=== PATIENT | male | born 1940 | race Caucasian/White ===

== ENCOUNTER 2016-10-05 19:18 | Inpatient (IN) | payer OTHER ==
[~2016-10-05] VITALS: Ht 165.1 cm; Wt 68.2 kg
[2016-10-05] MEDS ORDERED: ACETAMINOPHEN 325 MG TAB PO STA (19:39)
[2016-10-05] MEDS ORDERED: CEFEPIME 2GM/50 ML (PMX) 50 ML IVPB STA (19:39)
[2016-10-05] MEDS ORDERED: SOD CHLORIDE 0.9% 500 ML IV STA (19:47)
[2016-10-05 19:55] VITALS: TEMP 99.3
[2016-10-05] MEDS ORDERED: VANCOMYCIN 1 GM (PMX) 250 ML IVPB ONE (20:00)
[2016-10-05 20:18] LABS: ADD SCAN DIFF NO
--- NOTE | 2016-10-05 20:21 | RADRPT ---
PROCEDURE: XR Chest. CLINICAL INDICATION: Sepsis TECHNIQUE: Chest AP portable. COMPARISON: No comparison available FINDINGS: Right internal jugular tunnel dialysis catheter. The mediastinal structures are unremarkable. There is calcification of the thoracic aorta (consiste nt with atherosclerosis). There is mild cardiomegaly. There is pulmonary venous hypertension. The re are RLL and LLL patchy consolidations (edema/pneumonia). There are small bilateral pleural effus ions. The osseous structures are unremarkable. IMPRESSION: Mild cardiomegaly. Pulmonary venous hypertension. RLL and LLL patchy consolidations (edema/pneumonia). Small bilateral pleural effusions. RPTAT: HGDB .Patrick Downey MD, MD Date Time Electronically viewed and signed by .Patrick Downey MD, on 10/05/2016 20:20 .B/
[2016-10-05 20:25] LABS: BASOPHIL # 0.1 10^3/ul (0.0-0.1); BASOPHILS % 0.5 % (0.0-2.0); EOSINOPHILS % 0.3 % (0.0-7.0); HEMATOCRIT 29.7 % (42.0-52.0); HEMOGLOBIN 9.1 g/dl (14.0-18.0); LYMPHOCYTES # 0.7 10^3/ul (0.8-2.9); LYMPHOCYTES % 7.1 % (15.0-51.0); MEAN CORPUSCULAR HEMOGLOBIN 26.8 pg (29.0-33.0); MEAN CORPUSCULAR HGB CONC 30.6 g/dl (32.0-37.0); MEAN CORPUSCULAR VOLUME 87.4 fl (82.0-101.0); MEAN PLATELET VOLUME 10.6 fl (7.4-10.4); MONOCYTE # 0.7 10^3/ul (0.3-0.9); MONOCYTES % 6.7 % (0.0-11.0); NEUTROPHIL # 8.6 10^3/ul (1.6-7.5); NEUTROPHILS % 85.1 % (39.0-77.0); PLATELET COUNT 352 10^3/UL (140-415); RED CELL DISTRIBUTION WIDTH 15.3 % (11.5-14.5); WHITE BLOOD COUNT 10.2 10^3/ul (4.8-10.8)
[2016-10-05 20:30] LABS: INR 1.04; PROTIME 13.6 Sec (12.2-14.2); PT RATIO 1.1
[2016-10-05 20:31] LABS: PARTIAL THROMBOPLASTIN TIME 28.5 Sec (25.0-35.0)
[2016-10-05 20:37] LABS: ALBUMIN 3.7 g/dl (3.3-4.9)
[2016-10-05 20:38] LABS: POTASSIUM 4.2 mmol/L (3.5-5.1)
[2016-10-05 20:40] LABS: ALBUMIN/GLOBULIN RATIO 1.02; CREATININE 4.8 mg/dl (0.61-1.24); TOTAL PROTEIN 7.3 g/dl (6.1-8.1)
[2016-10-05 20:56] LABS: TROPONIN-I 0.419 ng/ml (0.00-0.12)
[2016-10-05] MEDS ORDERED: DILTIAZEM 25 MG INJ IV ONE (21:00)
[2016-10-05] MEDS ORDERED: ASPIRIN 81 MG TAB PO ONE (21:00)
[2016-10-05] MEDS ORDERED: MAGNESIUM HYDROXIDE 30ML CUP PO PRN (21:30)
[2016-10-05] MEDS ORDERED: ONDANSETRON 4 MG INJ IV PRN ×2 (21:30)
[2016-10-05] MEDS ORDERED: ACETAMINOPHEN 325 MG TAB PO PRN (21:30)
[2016-10-05] MEDS ORDERED: DOCUSATE SODIUM 100 MG CAP PO PRN (21:30)
[2016-10-05] MEDS ORDERED: NACL 0.9% 3 ML SYG IV SCH (21:30)
[2016-10-05] MEDS ORDERED: ALBUTEROL/IPRATROPIUM (NEB) 3 ML AMP HHN PRN (21:30)
[2016-10-05] MEDS ORDERED: NITROGLYCERIN (SL) 0.4 MG TAB SL PRN (21:30)
[2016-10-05] MEDS ORDERED: NA PHOSPHATE/BIPHOS 133 ML ENEMA PR PRN (21:30)
[2016-10-05] MEDS ORDERED: HYDROCODONE/APAP (5/325) TAB PO PRN (21:30)
[2016-10-05] MEDS ORDERED: morphine 2 MG INJ IV PRN (21:30)
--- NOTE | 2016-10-05 21:46 | ERA ---
ER Documentation Chief Complaint Date/Time DATE: 10/05/16 TIME: 21:39 Chief Complaint SOB after dialysis, hx angioplasty need bypass, on 4L nc at home HPI Patient is a 76-year-old male with coronary disease, diabetes, atrial fibrillation who presents with fever and high blood pressure. The patient said that he had shortness of breath starting 1 week ago and is gotten worse. He had fever after dialysis. He did not take any fluid off at dialysis. His symptoms have been getting worse. He said cough and phlegm. Upon review of old medical records this is the patient's first visit to the emergency department. ROS All systems reviewed and are negative except as per history of present illness. Allergies Allergies: Coded Allergies: No Known Allergy (Unverified , 10/05/16) PMhx/Soc Positive for coronary disease, diabetes, and atrial fibrillation FmHx Family History: diabetes Physical Exam Vitals Vital Signs Date Time Temp Pulse Resp B/P Pulse Ox O2 Delivery O2 Flow Rate FiO2 10/05/16 21:20 80 18 155/81 Nasal Cannula 2.0 10/05/16 20:36 105 20 176/84 97 2.0 10/05/16 20:17 Nasal Cannula 2 10/05/16 20:15 Nasal Cannula 2.0 10/05/16 19:55 99.3 140 24 159/96 100 Nasal Cannula 2.0 10/05/16 19:33 100.6 105 32 154/87 98 Physical Exam Const: Mild distress Head: Atraumatic Eyes: Normal Conjunctiva ENT: Normal External Ears, Nose and Mouth. Neck: Full range of motion..~ No meningismus. Resp: Decreased breath sounds bilaterally Cardio: Irregular rate with tachycardia Abd: Soft, non tender, non distended. Normal bowel sounds Skin: No petechiae or rashes Back: No midline or flank tenderness Ext: No cyanosis, or edema Neur: Awake and alert Psych: Normal Mood and Affect Result Diagram: 10/05/16200410/05/162004 Results 24 hrs Laboratory Tests Test 10/05/16 20:05 Activated Partial Thromboplast Time 28.5Sec Alanine Aminotransferase (ALT/SGPT) 22IU/L Albumin 3.7g/dl Albumin/Globulin Ratio 1.02 Alkaline Phosphatase 92IU/L Anion Gap 19 Aspartate Amino Transf (AST/SGOT) 21IU/L Basophils # 0.110^3/ul Basophils % 0.5% Blood Urea Nitrogen 23mg/dl Calcium Level 9.0mg/dl Carbon Dioxide Level 35mmol/L Chloride Level 90mmol/L Creatinine 4.80mg/dl Direct Bilirubin 0.00mg/dl Eosinophils # 0.010^3/ul Eosinophils % 0.3% Globulin 3.60g/dl Glucose Level 171mg/dl Hematocrit 29.7% Hemoglobin 9.1g/dl INR International Normalized Ratio 1.04 Indirect Bilirubin 0.0mg/dl Lactic Acid Level 1.7mmol/L Lymphocytes # 0.710^3/ul Lymphocytes % 7.1% Mean Corpuscular Hemoglobin 26.8pg Mean Corpuscular Hemoglobin Concent 30.6g/dl Mean Corpuscular Volume 87.4fl Mean Platelet Volume 10.6fl Monocytes # 0.710^3/ul Monocytes % 6.7% Neutrophils # 8.610^3/ul Neutrophils % 85.1% Nucleated Red Blood Cells # 0.010^3/ul Nucleated Red Blood Cells % 0.0/100WBC Platelet Count 93888^3/UL Potassium Level 4.2mmol/L Prothrombin Time 13.6Sec Prothrombin Time Ratio 1.1 Red Blood Count 3.4010^6/ul Red Cell Distribution Width 15.3% Sodium Level 140mmol/L Total Bilirubin 0.0mg/dl Total Protein 7.3g/dl Troponin I 0.419ng/ml White Blood Count 10.210^3/ul Current Medications Medications (Trade) Dose Ordered Sig/Tariq Route PRN Reason Start Time Stop Time Status Last Admin Dose Admin Acetaminophen 650 mg 650 mg ONCE STAT PO 10/05/16 19:39 10/05/16 19:42 DC 10/05/16 20:03 Cefepime HCl 50 ml @ 100 mls/hr ONCE STAT IVPB 10/05/16 19:39 10/05/16 20:08 DC 10/05/16 20:03 Vancomycin HCl 250 ml @ 125 mls/hr ONCE ONCE IVPB 10/05/16 20:00 10/05/16 21:59 10/05/16 20:25 Sodium Chloride (NS) 500 ml @ 500 mls/hr Q1H STAT IV 10/05/16 19:47 10/05/16 20:46 DC 10/05/16 20:04 Diltiazem HCl (Cardizem Iv) 10 mg ONCE ONCE IV 10/05/16 21:00 10/05/16 21:01 DC 10/05/16 21:01 Aspirin (Aspirin) 162 mg ONCE ONCE PO 10/05/16 21:00 10/05/16 21:01 DC 10/05/16 21:05 Ondansetron HCl (Zofran Inj) 4 mg ER BRIDGE PRN IV NAUSEA AND/OR VOMITING 10/05/16 21:30 10/06/16 21:29 Acetaminophen (Tylenol Tab) 650 mg ER BRIDGE PRN PO MILD PAIN/FEVER 10/05/16 21:30 10/06/16 21:29 IV Flush (NS 3 ml) 3 ml PER PROTOCOL IV 10/05/16 21:30 UNV Ondansetron HCl (Zofran Inj) 4 mg Q6H PRN IV NAUSEA AND/OR VOMITING 10/05/16 21:30 UNV Acetaminophen (Tylenol Tab) 650 mg Q6H PRN PO PAIN LEVEL 1-3 OR FEVER 10/05/16 21:30 UNV Acetaminophen/ Hydrocodone Bitart (Elizabeth (5/325)) 1 tab Q6H PRN PO MODERATE PAIN LEVEL 4-6 10/05/16 21:30 UNV Morphine Sulfate (morphine) 2 mg Q4H PRN IV SEVERE PAIN LEVEL 7-10 10/05/16 21:30 UNV Docusate Sodium (Colace) 100 mg Q12H PRN PO CONSTIPATION 10/05/16 21:30 UNV Magnesium Hydroxide (Milk Of Mag) 30 ml DAILY PRN PO CONSTIPATION 10/05/16 21:30 UNV Sodium Biphosphate/ Sodium Phosphate (Fleet Enema) 133 ml DAILY PRN ME CONSTIPATION 10/05/16 21:30 UNV Famotidine 20 mg 20 mg Q12 PO 10/06/16 09:00 UNV Sodium Chloride (1/2 NS) 1,000 ml @ 75 mls/hr [id number] IV 10/05/16 21:18 UNV Lorazepam (Ativan) 0.5 mg Q6H PRN IV ANXIETY 10/05/16 21:30 UNV Albuterol/ Ipratropium 3 ml 3 ml Q4H RESP THERAPY PRN HHN SHORTNESS OF BREATH 10/05/16 21:30 UNV Levofloxacin/ Dextrose (Levaquin 750 Mg/ D5W 150 ml (Pmx)) 150 ml @ 100 mls/hr DAILY IVPB 10/06/16 09:00 UNV Hydralazine HCl (Apresoline) 10 mg Q6H PRN IV ELEVATED BLOOD PRESSURE 10/05/16 21:30 UNV Clonidine (Catapres) 0.1 mg Q6H PRN PO ELEVATED BLOOD PRESSURE 10/05/16 21:30 UNV Nitroglycerin (Nitroglycerin (Sl Tab) 0.4 Mg) 1 tab Q5M PRN SL ANGINA 10/05/16 21:30 UNV Aspirin 325 mg 325 mg DAILY PO 10/06/16 09:00 UNV Diltiazem HCl (Cardizem-D5W 125 Mg/125 ml Drip) 125 ml @ 5 mls/hr TITRATE IV 10/05/16 21:30 UNV Procedures/MDM Chest X-ray 1V Interpreted by me: Soft Tissue: No acute abnormalities Bones: No acute abnormalities Mediastinum/Cardiac Silhouette/Lungs: Bilateral lower lobe pneumonia with cardiomegaly and dialysis catheter in place EKG read by me: Rate/Rhythm: Rapid atrial fibrillation Intervals: Normal Impression: Rapid atrial for ablation without evidence of ischemia Admit MDM: Patient's infectious symptoms have not stabilized and the patient is at risk of rapid decompensation. The patient will be admitted for careful hydration, antibiotic therapy, and infectious source control. Severe Sepsis criteria: Infectious source: Pneumonia End organ damage indicated by: Positive troponin Sepsis Management: Time of recognition of sepsis: 20:20 Within 3 hours of recognition: Blood cultures x 2 before broad-spectrum antibiotics: Yes 30 ml/kg NS bolus Completed Initial lactate 1.7 Repeat lactate pending Time of recognition of septic shock: No septic shock Septic Shock Assessment: Any lactic acid > 4.0 No Persistent hypotension (SBP < 90 or 40 mmHg drop, MAP < 65) despite 30 mL/kg IV fluid bolus No Volume Re-assessment for Septic Shock (post 30 ml/kg bolus): No septic shock at this time Persistent Hypotension Treatment: Comfort care No Central line Not Required Vasopressor started Not required I considered further perfusion assessment with CVP measurement, SCVO2, bedside ultrasound volume assessment, passive leg raise, trial of further fluid bolus. And proceeded with broad-spectrum antibiotics, diltiazem IV, aspirin by mouth, and admission. Please note that I did hold off on the fluid bolus as the patient has dialysis and I do not want to fluid overload him. Accepting Care Team Current data and ongoing care discussed. Admitting Physician: Dr. Alvarado from the panel team for admission [facility] Manager(s): None Outstanding Data: Culture results and repeat lactic acid Critical Care: Critical care time 35 minutes excluding all billable procedures Emergent fluid management while maintaining close respiratory support. Provision of immediate and broad-spectrum antibiotic therapy. Simultaneous assessment for possible sources in order to direct targeted therapy. Consideration for invasive and chemical support to prevent cardiopulmonary collapse. Departure Diagnosis: Primary Impression: Shortness of breath Additional Impressions: NSTEMI (non-ST elevated myocardial infarction) Rapid atrial fibrillation Pneumonia Qualified Code: J18.9 - Pneumonia of both lower lobes due to infectious organism Severe sepsis Condition: Serious PAVAN MARVIN MD Oct 05, 2016 21:46
[2016-10-05] MEDS ORDERED: DILTIAZEM-D5W 125MG/125ML DRIP 125 ML IV SCH (22:00)
[2016-10-05] MEDS ORDERED: SOD CHLORIDE 0.45% 1,000 ML IV SCH (22:30)
[2016-10-05 23:21] LABS: CK-MB 0.8 ng/ml (0.0-2.4); TROPONIN-I 0.42 ng/ml (0.00-0.12)
[2016-10-06] VITALS (18 sets, daily range): BP systolic 134–185; BP diastolic 68–104; PULSE 83–110; RESP 18–20; Ht 165.1 cm; Wt 68.2 kg
[2016-10-06] MEDS ORDERED: MELA1TAB25 PO (00:29)
[2016-10-06] MEDS ORDERED: CYAN100T PO (00:29)
[2016-10-06] MEDS ORDERED: ZINC220C5 PO (00:29)
[2016-10-06] MEDS ORDERED: FERR134T PO (00:29)
[2016-10-06] MEDS ORDERED: FOL8 PO (00:29)
[2016-10-06] MEDS ORDERED: UBID1CAP25 PO (00:29)
[2016-10-06] MEDS ORDERED: KEN1O TOP (00:29)
[2016-10-06] MEDS ORDERED: MAGN400C PO (00:29)
[2016-10-06] MEDS ORDERED: GLUCOSE GEL 15 GRAM TUBE BUCCAL PRN (01:00)
[2016-10-06] MEDS ORDERED: GLUCAGON 1 MG INJ IM PRN (01:00)
[2016-10-06] MEDS ORDERED: GLUCOSE GEL 15 GRAM TUBE PO PRN ×2 (01:00)
[2016-10-06] MEDS ORDERED: DEXTROSE 50% 50 ML SYRINGE IV PRN ×2 (01:00)
[2016-10-06] MEDS: ZOLPIDEM 5 MG TAB PO PRN (01:08)
[2016-10-06] MEDS ORDERED: ENOXAPARIN 80 MG/0.8 ML SYG SC ONE (03:00)
--- NOTE | 2016-10-06 03:22 | HP ---
DATE OF ADMISSION: 10/05/2016 The patient was seen and examined by me on 10/06/2015 at 9:15 p.m. CHIEF COMPLAINT: Shortness of breath. HISTORY OF PRESENT ILLNESS: A 76-year-old male with past medical history of coronary artery disease , type 2 diabetes, looks like atrial fibrillation, and end-stage renal disease on hemodialysis who p resents with shortness of breath symptoms that began about a week ago and have been getting progress ively worse. The patient also was complaining of fever after getting dialysis session. He has also had some cough and phlegm along with the shortness of breath symptoms as well. When he came into t ER today, he was found with elevated heart rate, atrial fibrillation with RVR, and his chest x-ra y did show signs of pneumonia as well. His troponin was elevated as well. PAST MEDICAL HISTORY: As above. ALLERGIES: NO KNOWN DRUG ALLERGIES. MEDICATIONS: 1. Ferrous sulfate 134 mg. 2. Magnesium oxide 266 mg daily. 3. Zinc sulfate 10 mg daily. 4. Kenalog applied topically b.i.d. 5. Vitamin B12 1000 mcg daily. 6. Folic acid 0.8 mg daily. 7. Melatonin 1 tab p.o. at bedtime. 8. CoQ10 100 mg 2 tabs daily. FAMILY HISTORY: Positive for diabetes. PAST SURGICAL HISTORY: Unknown. SOCIAL HISTORY: Unknown. PHYSICAL EXAMINATION: VITAL SIGNS: T-max 100.6, pulse 140 to 80, respirations 18 to 32, blood pressure 155 to 176 systoli c over 81 to 84 diastolic, saturating at 97% on 2 liters nasal cannula. GENERAL: The patient lying in bed, no acute distress. HEENT: Pupils equal, round, react to light. Extraocular muscles intact. NECK: Supple, no thyromegaly. LUNGS: Slightly decreased breath sounds bilaterally. CARDIOVASCULAR: Irregularly irregular heart rate with tachycardia. ABDOMEN: Soft, nontender, nondistended. Normal bowel sounds. No rebound or guarding. MUSCULOSKELETAL: No lower extremity edema bilaterally. NEUROLOGIC: No focal deficits. LABORATORIES: CBC is normal. Basic metabolic panel showed sodium 140, potassium 4.3, chloride 90, CO2 35, BUN 23, creatinine 4.8, glucose 171. LFTs are normal. First troponin is 0.419. Coags are normal. Chest x-ray shows mild cardiomegaly, pulmonary venous hypertension, right lower lobe and le ft lower lobe patchy consolidations, edema versus pneumonia, small bilateral pleural effusions. ASSESSMENT AND PLAN: A 76-year-old male coming in with shortness of breath with signs of atrial fib rillation with RVR, pneumonia, and non-ST elevation myocardial infarction. 1. Shortness of breath secondary to most likely a combination of pneumonia and atrial fibrillation with RVR. For the pneumonia, we will put him on broad-spectrum antibiotics. We will check a TSH, A 1c, lipid panel, and put him on low-dose IV fluids. 2. Atrial fibrillation with rapid ventricular response. The patient did receive Cardizem drip in t he ER. Heart rate is presently stable now, rate controlled. 3. Elevated troponin and signs of non-ST elevation MN. We will continue to trend his troponins. W e will give him a dose of Lovenox for now and put him on high dose aspirin, morphine, oxygen, and ni trates. We will get a cardiology consult as well. Check 2D echocardiogram as well. 4. History of type 2 diabetes. We will check an A1c, put him on sliding scale insulin for now. 5. Questionable history of anemia. We will put him back on his iron supplementation. His hemoglob in is 9.1 today. No signs of bleeding. 6. History of coronary artery disease. Again, see #3. 7. Hypertensive urgency. Again, the patient did receive diltiazem. We will put him on hydralazine and clonidine p.r.n. for systolic greater than 160. Continue to monitor for now. 8. Gastrointestinal prophylaxis. We will put him on H2 julia. 9. Deep venous thrombosis prophylaxis. Again, he got a dose of Lovenox. 10. End-stage renal disease on hemodialysis. We will get a renal consult as well and PT consult. Dictated By: LESLI NICOLE Conf#: [id number] DID#: [id number]
[2016-10-06] MEDS: LORAZEPAM 2 MG INJ IV PRN ×2 (04:42→15:12)
[2016-10-06] MEDS: hydrALAzine 20 MG INJ IV PRN (04:42)
[2016-10-06] MEDS ORDERED: LEVOFLOXACIN 750MG/D5W (PMX) 150 ML IVPB ONE (06:00)
[2016-10-06 06:35] LABS: CHOL/HDL RATIO 3.6 RATIO
[2016-10-06 07:05] LABS: THYROID STIMULATING HORMONE 9.07 MIU/L (0.465-4.680)
[2016-10-06 07:56] LABS: ADD SCAN DIFF NO
[2016-10-06 07:59] LABS: BASOPHIL # 0.1 10^3/ul (0.0-0.1); EOSINOPHILS # 0.1 10^3/ul (0.0-0.5); EOSINOPHILS % 1.3 % (0.0-7.0); HEMOGLOBIN 8.9 g/dl (14.0-18.0); LYMPHOCYTES # 1.7 10^3/ul (0.8-2.9); LYMPHOCYTES % 21.3 % (15.0-51.0); MEAN CORPUSCULAR HEMOGLOBIN 27.3 pg (29.0-33.0); MEAN CORPUSCULAR HGB CONC 30.7 g/dl (32.0-37.0); MONOCYTE # 0.6 10^3/ul (0.3-0.9); MONOCYTES % 7.2 % (0.0-11.0); NEUTROPHIL # 5.4 10^3/ul (1.6-7.5); NEUTROPHILS % 68.9 % (39.0-77.0); PLATELET COUNT 315 10^3/UL (140-415); RED BLOOD COUNT 3.26 10^6/ul (4.70-6.10); RED CELL DISTRIBUTION WIDTH 15.6 % (11.5-14.5); WHITE BLOOD COUNT 7.9 10^3/ul (4.8-10.8)
[2016-10-06 08:08] LABS: POTASSIUM 4.1 mmol/L (3.5-5.1)
[2016-10-06 08:10] LABS: CREATININE 5.43 mg/dl (0.61-1.24)
[2016-10-06 08:12] LABS: CALCIUM 8.8 mg/dl (8.4-10.2); PHOSPHORUS 3.6 mg/dl (2.5-4.9)
[2016-10-06 08:21] LABS: CK-MB 1.07 ng/ml (0.0-2.4)
[2016-10-06 08:27] LABS: TROPONIN-I 0.453 ng/ml (0.00-0.12)
[2016-10-06] MEDS: TRIAMCINOLONE ACET 0.1% 15 GM OINT TOP SCH ×2 (08:33→21:18)
[2016-10-06] MEDS ORDERED: ZINC SULFATE 220 MG CAP PO SCH (09:00)
[2016-10-06] MEDS ORDERED: UBIDECARENONE PO SCH (09:00)
[2016-10-06] MEDS ORDERED: [UNRECOGNIZED DRUG - OTHER] PO SCH (09:00)
[2016-10-06] MEDS: CYANOCOBALAMIN 500 MCG TAB PO SCH ×2 (09:00→09:56)
[2016-10-06] MEDS: FOLIC ACID 0.4 MG TAB PO SCH ×2 (09:00→09:56)
[2016-10-06] MEDS ORDERED: VIT E ACETATE PO SCH (09:00)
[2016-10-06] MEDS: FAMOTIDINE 20 MG TAB PO SCH ×2 (09:00→09:56)
[2016-10-06] MEDS: INSULIN ASPART [NOVOLOG] 3 ML PEN SC SCH ×4 (09:19→21:00)
--- NOTE | 2016-10-06 09:45 | CONS ---
DATE OF ADMISSION: 10/05/2016 DATE OF CONSULTATION: 10/06/2016 TYPE OF CONSULTATION: Nephrology. REASON FOR CONSULTATION: End-stage renal disease. REQUESTING PHYSICIAN: Dr. Alvarado HISTORY OF PRESENT ILLNESS: This is a 76-year-old male with a past medical history of end-stage chelsy al disease on dialysis Monday, Monday, Monday; history of diabetes, history of coronary artery di abnere who presents to [facility] with progressive shortness of breath. The patien t states that he was recently at his hemodialysis center yesterday and was complaining about shortne ss of breath and fever following dialysis. The patient said that he has also had some ongoing cough with phlegm. The patient states yesterday after hemodialysis he became more progressively short of breath and as a result he was taken to the emergency room. Upon arrival, patient was noted to be i n atrial fibrillation with rapid rate. In the emergency room, the patient had a chest x-ray which sh owed evidence of bilateral patchy consolidations and bilateral pleural effusions and pulmonary venou s hypertension. Patient also on arrival was noted to be febrile with a temperature of 100.6. In the emergency room, the patient was given IV antibiotics and admitted to telemetry for further evaluati on. The patient was also given diltiazem for his atrial fibrillation. In terms of the patient's renal history, he has been on hemodialysis 3 times weekly. The patient st ated that his last hemodialysis no fluid was taken off. He denies any dysuria, any hematochezia or hemoptysis. PAST MEDICAL HISTORY: As stated above, history of end-stage renal disease, history of hypertension, history of anemia, history of coronary artery disease, history of diabetes. PAST SURGICAL HISTORY: Status post AV fistula. FAMILY HISTORY: Noncontributory. MEDICATIONS: The patient's medications have been reviewed. ALLERGIES: NO KNOWN DRUG ALLERGIES. REVIEW OF SYSTEMS: A 14-point review of systems was conducted. Pertinent positives in HPI, otherwi se negative. PHYSICAL EXAMINATION: VITAL SIGNS: Blood pressure is 134/87, respiratory rate 20, pulse 101, temperature 98.0. HEENT: Head is normocephalic. NECK: Supple. HEART: Regular rate. LUNGS: Show diminished breath sounds at the base. ABDOMEN: Soft, nontender to palpation. No rebound or guarding. EXTREMITIES: Negative for clubbing, cyanosis, no edema. DERMATOLOGIC: No rashes. MUSCULOSKELETAL: No joint effusions. NEUROLOGIC: No focal deficits. The patient's medications have been reviewed. LABORATORY DATA: Shows sodium 141, potassium 4.1, chloride 93, BUN 30, creatinine 5.43. White coun t 7.9, hemoglobin 8.9, hematocrit 29.1, platelet count is 315. Chest x-ray as stated above. ASSESSMENT AND PLAN: This is a 76-year-old male who presents with: 1. End-stage renal disease. The patient is on dialysis Monday, Monday, Monday. The patient's l ast hemodialysis was yesterday, tolerated well. Plan is for hemodialysis today for volume removal. The patient's chest x-ray shows evidence of possible edema. The patient is currently short of . Will do a short run of hemodialysis with goal ultrafiltration of 1 to 2 liters. 2. Anemia of chronic kidney disease. Hemoglobin levels currently stable. Continue to monitor. Wi ll give Epogen following dialysis. 3. Mineral bone disorder. Monitor calcium and phosphorus levels. Will defer phosphate binders. 4. Hypertension. We will continue patient's current blood pressure regimen. Will monitor closely. 5. Sepsis secondary to bilateral pneumonia. Continue current antibiotic regimen. Follow up jennifer es. Consider infectious disease evaluation. 6. Atrial fibrillation, currently rate controlled. Continue current medical management. 7. Elevated troponin, possible non-ST elevation myocardial infarction type 1 versus type 2. The pa tient is status post Lovenox. Continue current medical management and follow up with Cardiology. 8. Diabetes. Continue Accu-Cheks, insulin sliding scale. 9. History of coronary artery disease. Continue current medical management. 10. Acute hypoxemic respiratory failure. Etiology secondary to pneumonia, volume overload, congest brian heart failure. Continue current treatment plan as stated above. Continue supplemental oxygen. Continue antibiotics ultrafiltration dialysis. Thank you, Dr. Alvarado, for this interesting consultation. It will be a pleasure to follow patient evelina h victoriano throughout the hospital course. Dictated By: NOEMI LOUIE DO NR/NTS Conf#: [id number] DID#: [id number]
[2016-10-06] MEDS: ASPIRIN (EC) 325 MG TAB PO SCH (09:50)
[2016-10-06] MEDS: CLOPIDOGREL 75 MG TAB PO SCH (12:21)
[2016-10-06] MEDS ORDERED: ZOLP10TA5 PO (12:44)
[2016-10-06] MEDS ORDERED: FURO40SO PO (12:44)
[2016-10-06] MEDS ORDERED: ALBU18HF INHALATION (12:44)
[2016-10-06] MEDS ORDERED: CLOP75TA28 PO (12:44)
[2016-10-06] MEDS ORDERED: ATOR40TA68 PO (12:44)
[2016-10-06] MEDS ORDERED: BENA40TA41 PO (12:44)
[2016-10-06] MEDS ORDERED: OMEP20CA16 PO (12:44)
[2016-10-06] MEDS ORDERED: ASPI-716 PO (12:44)
[2016-10-06] MEDS ORDERED: GLIP-95 PO (12:44)
[2016-10-06] MEDS ORDERED: PRO20 PO (12:44)
--- NOTE | 2016-10-06 14:31 | CONS ---
DATE OF ADMISSION: 10/05/2016 DATE OF CONSULTATION: 10/06/2016 REASON FOR CONSULTATION: Atrial fibrillation with rapid ventricular response, ____. REQUESTING PHYSICIAN: Dr. Eldridge from the hospitalist service. HISTORY OF PRESENT ILLNESS: Mr. Sandoval is a 76-year-old male with history of coronary artery dis ease, status post recent left heart catheterization at [facility], unclear if the patient re ceived a stent at this time. Diabetes mellitus, cardiomyopathy, decreased left ventricular ejection fraction, last approximately 35 to 40% by echo at [facility], end-stage renal disease on hem odialysis, who presents with complaints of shortness of breath and progressive weakness. Upon arriv al in the emergency department temperature 100.6, blood pressure 154/87, pulse 105, respiratory rate 32, saturating 98% on 2 liters. Patient's labs revealed a sodium 140, potassium 4.2, creatinine 4. 8, BUN 23. Troponin positive 0.419, free T4 of 1.37. White blood cell count 10.2, hemoglobin 9.1, platelet count 352. INR 1.0. The patient underwent a chest x-ray revealing mild cardiomegaly, pulm onary venous hypertension, right lower lobe and left lower lobe patchy consolidations, small bilater al pleural effusions. The patient's electrocardiogram revealed atrial fibrillation with rapid ventr icular response, rate 130, normal axis, left ventricular hypertrophy by voltage criteria with infer ior and lateral ST depressions. Patient subsequently admitted to the floor and since admit to the [facility], has had troponins trended going from 0.49 to 0.453 in the setting of renal failure. Patient d enies chest pain, denies shortness breath at this time. PAST MEDICAL HISTORY: As above in HPI. MEDICATIONS CURRENTLY IN HOSPITAL: 1. Levofloxacin. 2. Ferrous sulfate. 3. Magnesium oxide 400 mg daily. 4. Plavix 75 mg daily. 5. Pepcid 20 mg daily. 6. Aspirin 325 mg daily. 7. Vitamin B12. 8. Folic acid. 9. Triamcinolone cream. 10. Insulin sliding scale. 11. Ambien p.r.n. 12. Zocor p.r.n. 13. Morphine p.r.n. 14. Colace p.r.n. 15. Milk of magnesia p.r.n. 16. Ativan p.r.n. 17. Clonidine p.r.n. ALLERGIES: NO KNOWN DRUG ALLERGIES. SOCIAL HISTORY: No tobacco, ETOH or illicit drug use. FAMILY HISTORY: Negative for sudden cardiac or early CAD. REVIEW OF SYSTEMS: As above in HPI. CONSTITUTIONAL: No fevers, chills. PULMONARY: Positive shortness of breath. CARDIOVASCULAR: Congestive heart failure. GASTROINTESTINAL: No vomiting. GENITOURINARY: No hematuria, but renal failure. MUSCULOSKELETAL: No documented psychiatric history. NEUROLOGIC: No documented history of CVA. PHYSICAL EXAMINATION VITAL SIGNS: Temperature of 98.3, blood pressure elevated at 185/87, pulse 93, respiratory rate 20, saturating 100%. GENERAL: The patient is sleeping, but easily arousable. NECK: JVP approximately 9 cm water. CHEST: Bibasilar crackles. HEART: Irregularly irregular rhythm, I/ systolic murmur, laterally displaced PMI. ABDOMEN: Positive bowel sounds, soft. EXTREMITIES: No edema, 1+ pulses bilaterally, posterior tibial. LABORATORY DATA: Most recently from today, sodium 141, potassium 4.1, creatinine 5.43, BUN of 30, h emoglobin A1c of 6.3. White blood cell count 7.9, hemoglobin 8.9, platelet count 315. IMAGING STUDIES: As above in HPI. No further imaging studies for my review at this time. ELECTROCARDIOGRAM: As above in HPI. No further electrocardiograms for my review at this time. IMPRESSION: 1. Atrial fibrillation with rapid ventricular response. 2. Abnormal electrocardiogram with inferolateral ST depressions. 3. Positive troponin, assess significance. 4. Cardiomyopathy, decreased left ventricula ejection fraction last approximately 35 to 40% by out side hospital paperwork at [facility]. 5. History of PTCA and stent placement at [facility] recently. 6. Renal failure. 7. Hypertension. 8. Shortness of breath. 9. Generalized weakness. 10. Diabetes mellitus. 11. Anemia. RECOMMENDATIONS: 1. At this time, would maintain the patient on telemetry monitoring to follow rhythm and rate contr ol closely. 2. Would continue the patient's aspirin and Plavix for prevention of further cardiovascular events and possibly for stent patency and prevention of thromboembolic events in the setting of atrial fibr illation as well. We will initiate patient on low dose Lovenox, but today the patient has received a full Lovenox dose. 3. Follow the patient's volume status closely. Probable need for gentle diuresis and possible init iation of hemodialysis. 4. Continue the patient's antibiotic therapy and follow up all culture data. 5. Initiate patient on beta julia to improve heart rate and blood pressure control and additional ly, will give the patient low dose hydralazine for afterload reduction in the setting of decreased E F. 6. We will obtain the patient's most recent records from [facility] pertaining to any possib le catheterization and any interventions that were done at that time. Thank you for allowing me to take part in the care of this patient. I will continue to follow very closely with you with further recommendations to be made as the patient progresses through his [facility] clinical course. Dictated By: AIYANA OWENS/CHANTALE Conf#: [id number] DID#: [id number] CC: LESLI BETTENCOURT; JANAE ELDRIDGE MD;*EndCC*
[2016-10-06] MEDS: MAGNESIUM OXIDE 400 MG TAB PO SCH (15:19)
--- NOTE | 2016-10-06 16:02 | PN ---
Date/Time of Note Date/Time of Note DATE: 10/06/16 TIME: 15:53 Assessment/Plan VTE Prophylaxis VTE Prophylaxis Intervention: LMWH Lines/Catheters [facility] PERMAC[facility] Assessment/Plan Chief Complaint/Hosp Course 1. Acute history distress secondary to volume overload from underlying end- stage renal disease Nephrology consultation appreciated, plan is for dialysis with ultrafiltration today Pneumonia is unlikely but the patient did have a low-grade fever on arrival, if patient remains afebrile and continues to have no leukocytosis will discontinue antibiotics in a.m. 2. Atrial fibrillation with rapid ventricular response-stable Continue metoprolol p.o. Cardiology consultation appreciated 3. Non-STEMI Monitor troponins, currently stable, elevation likely secondary to tachyarrhythmia Patient did have recent PCI continue aspirin and Plavix Cardiology consultation appreciated 4. History of type 2 diabetes A1c at 6.3, continue NovoLog sliding scale 5. Anemia secondary end-stage renal disease Monitor 6. History of coronary artery disease Resume home meds 7. Hypertensive urgency-improved Prophylaxis: Lovenox Problems: Subjective 24 Hr Interval Summary Respiratory: shortness of breath Exam/Review of Systems Vital Signs Vitals Vital Signs Date Time Temp Pulse Resp B/P Pulse Ox O2 Delivery O2 Flow Rate FiO2 10/06/16 15:28 98.0 86 20 171/88 98 10/06/16 11:08 Nasal Cannula 2.0 Intake and Output 10/05/16 10/05/16 10/06/16 15:00 23:00 07:00 Intake Total 750 ml 30 ml Balance 750 ml 30 ml Exam Constitutional: alert, oriented Respiratory: clear to auscultation Cardiovascular: regular rate and rhythm Gastrointestinal: soft, No distended Musculoskeletal: nl extremities to inspection Results Result Diagram: 10/06/1625 10/06/16 0525 Results 24 hrs Laboratory Tests Test 10/05/16 20:00 10/05/16 20:05 10/05/16 21:30 10/05/16 23:00 Free Thyroxine 1.37 Activated Partial Thromboplast Time 28.5 Alanine Aminotransferase (ALT/SGPT) 22 Albumin 3.7 Albumin/Globulin Ratio 1.02 Alkaline Phosphatase 92 Anion Gap 19 H Aspartate Amino Transf (AST/SGOT) 21 Basophils # 0.1 Basophils % 0.5 Blood Urea Nitrogen 23 H Calcium Level 9.0 Carbon Dioxide Level 35 H Chloride Level 90 L Creatinine 4.80 H Direct Bilirubin 0.00 Eosinophils # 0.0 Eosinophils % 0.3 Globulin 3.60 H Glucose Level 171 Hematocrit 29.7 L Hemoglobin 9.1 L INR International Normalized Ratio 1.04 Indirect Bilirubin 0.0 Lactic Acid Level 1.7 1.1 Lymphocytes # 0.7 L Lymphocytes % 7.1 L Mean Corpuscular Hemoglobin 26.8 L Mean Corpuscular Hemoglobin Concent 30.6 L Mean Corpuscular Volume 87.4 Mean Platelet Volume 10.6 H Monocytes # 0.7 Monocytes % 6.7 Neutrophils # 8.6 H Neutrophils % 85.1 H Nucleated Red Blood Cells # 0.0 Nucleated Red Blood Cells % 0.0 Platelet Count 352 Potassium Level 4.2 Prothrombin Time 13.6 Prothrombin Time Ratio 1.1 Red Blood Count 3.40 L Red Cell Distribution Width 15.3 H Sodium Level 140 Total Bilirubin 0.0 L Total Protein 7.3 Troponin I 0.419 *H 0.420 *H White Blood Count 10.2 Creatine Kinase 30 Creatine Kinase Index 2.7 Creatinine Kinase MB (Mass) 0.80 Test 10/05/16 23:12 10/06/16 00:20 10/06/16 05:25 10/06/16 07:42 Lactic Acid Level 1.2 Bedside Glucose 129 171 Anion Gap 20 H Basophils # 0.1 Basophils % 1.0 Blood Urea Nitrogen 30 H Calcium Level 8.8 Carbon Dioxide Level 32 H Chloride Level 93 L Cholesterol Level 112 Cholesterol/HDL Ratio 3.6 Creatine Kinase 29 Creatine Kinase Index 3.7 Creatinine 5.43 H Creatinine Kinase MB (Mass) 1.07 Eosinophils # 0.1 Eosinophils % 1.3 Glucose Level 177 HDL Cholesterol 31 Hematocrit 29.0 L Hemoglobin 8.9 L Hemoglobin A1c 6.3 H LDL Cholesterol, Calculated 52 Lymphocytes # 1.7 Lymphocytes % 21.3 Magnesium Level 2.0 Mean Corpuscular Hemoglobin 27.3 L Mean Corpuscular Hemoglobin Concent 30.7 L Mean Corpuscular Volume 89.0 Mean Platelet Volume 11.0 H Monocytes # 0.6 Monocytes % 7.2 Neutrophils # 5.4 Neutrophils % 68.9 Nucleated Red Blood Cells # 0.0 Nucleated Red Blood Cells % 0.0 Phosphorus Level 3.6 Platelet Count 315 Potassium Level 4.1 Red Blood Count 3.26 L Red Cell Distribution Width 15.6 H Sodium Level 141 Thyroid Stimulating Hormone (TSH) 9.260 H Triglycerides Level 143 Troponin I 0.453 *H White Blood Count 7.9 # Test 10/06/16 11:54 Bedside Glucose 144 Medications Medications Current Medications Ondansetron HCl (Zofran Inj) 4 mg Q6H PRN IV NAUSEA AND/OR VOMITING; Start at 21:30 Acetaminophen (Tylenol Tab) 650 mg Q6H PRN PO PAIN LEVEL 1-3 OR FEVER; Start at 21:30 Acetaminophen/ Hydrocodone Bitart ([place] (5/325)) 1 tab Q6H PRN PO MODERATE PAIN LEVEL 4-6; Start 10/05/16 at 21:30 Morphine Sulfate (morphine) 2 mg Q4H PRN IV SEVERE PAIN LEVEL 7-10; Start 10/05 at 21:30 Docusate Sodium (Colace) 100 mg Q12H PRN PO CONSTIPATION; Start 10/05/16 at 21: 30 Magnesium Hydroxide (Milk Of Mag) 30 ml DAILY PRN PO CONSTIPATION; Start at 21:30 Sodium Biphosphate/ Sodium Phosphate (Fleet Enema) 133 ml DAILY PRN [place] CONSTIPATION; Start 10/05/16 at 21:30 Famotidine (Pepcid) 20 mg DAILY PO Last administered on 10/06/16 09:56; Admin Dose 20 MG; Start 10/06/16 at 09:00 Lorazepam (Ativan) 0.5 mg Q6H PRN IV ANXIETY Last administered on 10/06/16 15: 12; Admin Dose 0.5 MG; Start 10/05/16 at 21:30 Hydralazine HCl (Apresoline) 10 mg Q6H PRN IV ELEVATED SYSTOLIC BP Last administered on 10/06/16 04:42; Admin Dose 10 MG; Start 10/05/16 at 21:30 Clonidine (Catapres) 0.1 mg Q6H PRN PO ELEVATED SYSTOLIC BP; Start 10/05/16 at 21:30 Nitroglycerin (Nitroglycerin (Sl Tab) 0.4 Mg) 1 tab Q5M PRN SL ANGINA; Start at 21:30 Aspirin 325 mg 325 mg DAILY PO Last administered on 10/06/16 09:50; Admin Dose 325 MG; Start 10/06/16 at 09:00 Diltiazem HCl 125 ml @ 5 mls/hr TITRATE IV ; Start 10/05/16 at 22:00 Levofloxacin/ Dextrose (Levaquin 500mg/ D5W 100 ml (Pmx)) 100 ml @ 100 mls/hr Q48H IVPB ; Start 10/08/16 at 06:00 Diagnostic Test (Pha) (Accucheck) 1 ea 02 XX ; Start 10/07/16 at 02:00 Zolpidem Tartrate (Ambien) 5 mg HS PRN PO INSOMNIA Last administered on 01:08; Admin Dose 5 MG; Start 10/06/16 at 01:00 Miscellaneous Information 1 ea NOTE XX ; Start 10/06/16 at 01:00 Glucose (Glutose) 15 gm Q15M PRN PO DECREASED GLUCOSE; Start 10/06/16 at 01:00 Glucose (Glutose) 22.5 gm Q15M PRN PO DECREASED GLUCOSE; Start 10/06/16 at 01: 00 Dextrose (D50w Syringe) 25 ml Q15M PRN IV DECREASED GLUCOSE; Start 10/06/16 at 01:00 Dextrose (D50w Syringe) 50 ml Q15M PRN IV DECREASED GLUCOSE; Start 10/06/16 at 01:00 Glucagon (Glucagen) 1 mg Q15M PRN IM DECREASED GLUCOSE; Start 10/06/16 at 01:00 Glucose (Glutose) 15 gm Q15M PRN BUCCAL DECREASED GLUCOSE; Start 10/06/16 at 01 :00 Cyanocobalamin (Vitamin B12) 1,000 mcg DAILY PO Last administered on 10/06/16 09:56; Admin Dose 1,000 MCG; Start 10/06/16 at 09:00 Folic Acid (Folic Acid) 0.8 mg DAILY PO Last administered on 10/06/16 09:56; Admin Dose 0.8 MG; Start 10/06/16 at 09:00 Triamcinolone Acetonide (Kenalog 0.1% Oint) 1 applic BID TOP Last administered on 10/06/16 08:33; Admin Dose 1 APPLIC; Start 10/06/16 at 09:00 Ferrous Sulfate (Slow Fe) 142 mg DAILY PO ; Start 10/07/16 at 09:00 Magnesium Oxide (Mag-Ox 400) 400 mg DAILY PO Last administered on 10/06/16 15: 19; Admin Dose 400 MG; Start 10/06/16 at 13:00 Clopidogrel Bisulfate (plaVIX) 75 mg DAILY PO Last administered on 10/06/16 12 :21; Admin Dose 75 MG; Start 10/06/16 at 12:00 Metoprolol Tartrate (Lopressor) 25 mg BID PO ; Start 10/06/16 at 21:00 JANAE ELDRIDGE Oct 06, 2016 16:02
[2016-10-06] MEDS: BENAZEPRIL 40 MG TAB PO SCH (17:40)
[2016-10-06] MEDS: NIFEdipine (XL) 60 MG TAB PO SCH (17:41)
[2016-10-06 19:17] LABS: CK-MB 1.47 ng/ml (0.0-2.4)
[2016-10-06 19:21] LABS: TROPONIN-I 0.327 ng/ml (0.00-0.12)
--- NOTE | 2016-10-06 20:55 | RADRPT ---
Echocardiogram Report Patient Name: JULY SHIELDS Gender: Male Date: 1940 Study Date: 06-Oct-2016 [place] Coverer: Sunny Dinh RDCS Location: [facility] Ref. Physician: LESLI BETTENCOURT Quality: Technically Difficult Study Procedures: Transthoracic echocardiogram with complete 2D, M-Mode, and doppler examination. Indications: Chest Pain. 2D/M Mode Doppler Measurement Value Normal Ranges Measurement Value Normal Ranges LVIDd 2D 5.8 3.5 - 5.6 cm AV Peak [place] 0.9 m/sec LVIDs 2D 5.0 2.1 - 4.1 cm AV Peak PG 3.0 mmHg LVPWd 2D 1.1 0.6 - 1.1 cm LVOT Peak [place] 0.8 m/sec IVSd 2D 1.0 0.6 - 1.1 cm LVOT Peak PG 2.4 mmHg AoR Diam 2D 2.9 2.0 - 3.7 cm TR Peak [place] 2.5 m/sec EDV 2D 168.1 cm3 TR Peak PG 24.1 mmHg ESV 2D 126.9 cm3 RVSP 32.0 mmHg LA Dimen 2D 4.6 2.3 - 4.0 cm Findings Left Ventricle: Normal left ventricular wall thickness. Mild enlargement of left ventricle cavity. Severe global left ventricular systolic dysfunction. Ejection fraction is visually estimated at 25 %. Right Ventricle: Normal right ventricular size. Left Atrium: There is moderate enlargement of left atrium. Right Atrium: There is mild enlargement of right atrium. Mitral Valve: Mitral valve leaflets appear mildly thickened. Mild mitral annular calcification. Mild mitral valve regurgitation. Aortic Valve: Aortic cusps appear moderately calcified. Mild aortic valve regurgitation. Tricuspid Valve: Estimated peak PA systolic pressure 32 mmHg. There is mild tricuspid regurgitation. Pulmonic Valve: Normal pulmonic valve appearance. Pericardium: Normal pericardium with no significant pericardial effusion. Left pleural effusion seen. Aorta: Normal aortic root. IVC: Dilated IVC with respiratory collapse consistent with elevated right atrial pressure. Conclusions 1.Normal left ventricular wall thickness. Mild enlargement of left ventricle cavity. Severe global left ventricular systolic dysfunction. Ejection fraction is visually estimated at 25 %. 2.There is moderate enlargement of left atrium. 3.There is mild enlargement of right atrium. 4.Mitral valve leaflets appear mildly thickened. Mild mitral annular calcification. Mild mitral valve regurgitation. 5.Aortic cusps appear moderately calcified. Mild aortic valve regurgitation. 6.Estimated peak PA systolic pressure 32 mmHg. There is mild tricuspid regurgitation. Electronically Signed By: Archie Umana 06-Oct-2016 20:54:52 -0700 Patient Name: JULY SHIELDS Study Date: 06-Oct-[id number]
[2016-10-06] MEDS ORDERED: NON-FORMULARY/PATIENT OWN MED (Melatonin-Pyridoxine Hcl (Melatonin) 1 TAB) PO SCH (21:00)
[2016-10-06] MEDS: ATORVASTATIN 40 MG TAB PO SCH (21:18)
[2016-10-06] MEDS: METOPROLOL 25 MG TAB PO SCH (21:18)
[2016-10-07] VITALS (23 sets, daily range): BP systolic 114–162; BP diastolic 67–90; PULSE 83–103; RESP 18–20
[2016-10-07 01:25] LABS: CK-MB 1.27 ng/ml (0.0-2.4); TROPONIN-I 0.318 ng/ml (0.00-0.12)
[2016-10-07] MEDS: ACCU-CHEK XX SCH (02:00)
[2016-10-07] MEDS: hydrALAzine 20 MG INJ IV PRN (05:23)
[2016-10-07 06:38] LABS: ADD SCAN DIFF NO
[2016-10-07 06:45] LABS: BASOPHIL # 0.1 10^3/ul (0.0-0.1); BASOPHILS % 0.9 % (0.0-2.0); EOSINOPHILS # 0.1 10^3/ul (0.0-0.5); EOSINOPHILS % 0.9 % (0.0-7.0); HEMATOCRIT 26.4 % (42.0-52.0); HEMOGLOBIN 8.2 g/dl (14.0-18.0); LYMPHOCYTES # 1.3 10^3/ul (0.8-2.9); LYMPHOCYTES % 16.3 % (15.0-51.0); MEAN CORPUSCULAR HEMOGLOBIN 27.2 pg (29.0-33.0); MEAN CORPUSCULAR HGB CONC 31.1 g/dl (32.0-37.0); MEAN CORPUSCULAR VOLUME 87.4 fl (82.0-101.0); MEAN PLATELET VOLUME 10.8 fl (7.4-10.4); MONOCYTE # 0.5 10^3/ul (0.3-0.9); MONOCYTES % 6.6 % (0.0-11.0); NEUTROPHIL # 6.1 10^3/ul (1.6-7.5); NEUTROPHILS % 75.1 % (39.0-77.0); PLATELET COUNT 301 10^3/UL (140-415); RED BLOOD COUNT 3.02 10^6/ul (4.70-6.10); RED CELL DISTRIBUTION WIDTH 15.7 % (11.5-14.5); WHITE BLOOD COUNT 8.1 10^3/ul (4.8-10.8)
[2016-10-07 06:48] LABS: CHOL/HDL RATIO 3.4 RATIO
[2016-10-07] MEDS: FAMOTIDINE 20 MG TAB PO SCH (08:21)
[2016-10-07] MEDS: NIFEdipine (XL) 60 MG TAB PO SCH (08:22)
[2016-10-07] MEDS: CYANOCOBALAMIN 500 MCG TAB PO SCH (08:22)
[2016-10-07] MEDS: ASPIRIN (EC) 325 MG TAB PO SCH (08:22)
[2016-10-07] MEDS: MAGNESIUM OXIDE 400 MG TAB PO SCH (08:22)
[2016-10-07] MEDS: CLOPIDOGREL 75 MG TAB PO SCH (08:22)
[2016-10-07] MEDS: BENAZEPRIL 40 MG TAB PO SCH (08:23)
[2016-10-07] MEDS: METOPROLOL 25 MG TAB PO SCH (08:23)
[2016-10-07] MEDS: INSULIN ASPART [NOVOLOG] 3 ML PEN SC SCH ×4 (08:28→20:15)
[2016-10-07] MEDS: FOLIC ACID 0.4 MG TAB PO SCH (08:29)
[2016-10-07 08:48] LABS: POTASSIUM 4.6 mmol/L (3.5-5.1)
[2016-10-07 08:51] LABS: CREATININE 5.22 mg/dl (0.61-1.24)
[2016-10-07 08:52] LABS: CALCIUM 9.2 mg/dl (8.4-10.2)
[2016-10-07] MEDS: FERROUS SULFATE (SR) 142 MG TAB PO SCH (09:12)
[2016-10-07] MEDS: TRIAMCINOLONE ACET 0.1% 15 GM OINT TOP SCH ×2 (09:12→20:08)
--- NOTE | 2016-10-07 09:43 | PN ---
DATE: 10/07/2016 SUBJECTIVE: The patient is stable, had hemodialysis yesterday, tolerated well. OBJECTIVE: VITAL SIGNS: Blood pressure 159/72, respiration 18, pulse 70, temperature 98.0. HEENT: Head is normocephalic. NECK: Supple. HEART: Regular rate. LUNGS: Show diminished breath sounds at base. ABDOMEN: Soft, nontender to palpation without rebound or guarding. EXTREMITIES: Negative for clubbing, cyanosis, edema. DERMATOLOGIC: No rashes. MUSCULOSKELETAL: No joint effusions. NEUROLOGIC: No change in exam. MEDICATIONS: Reviewed. LABORATORY DATA: Sodium 139, potassium 4.6, BUN 31, creatinine 5.22. White count 8.1, hemoglobin 8 .2, hematocrit 36.4, platelet count 301. ASSESSMENT AND PLAN: 1. End-stage renal disease. The patient is on dialysis Monday, Monday, and Monday. The patient had hemodialysis yesterday, tolerated well. Plan for dialysis again today for 3 hours, 2K bath, ca lcium 2.5. 2. Anemia of chronic kidney disease. Hemoglobin level stable, continue to monitor, give Epogen as needed. 3. Mineral bone disorder. Continue to monitor calcium and phosphorus levels. Continue phosphate b inders as needed. 4. Hypertension. Continue ultrafiltration dialysis. Continue current blood pressure regimen. 5. Sepsis secondary to pneumonia. Continue current antibiotic regimen. The patient is clinically improving. Cultures have been reviewed. 6. Atrial fibrillation, rate controlled. Continue medical management. 7. Elevated troponin, possible non-STEMI type 1 versus type 2. Continue medical management and fol low up with cardiology. 8. Diabetes. Continue Accu-Cheks with insulin sliding scale. 9. Acute hypoxemic respiratory failure secondary to pneumonia, volume overload. Continue current m edical management. Continue antibiotics, nebulizers, supplemental oxygen, and ultrafiltration with dialysis. Dictated By: NOEMI BOTELLO/CHANTALE Conf#: [id number] DID#: [id number]
--- NOTE | 2016-10-07 15:39 | PN ---
Date/Time of Note Date/Time of Note DATE: 10/07/16 TIME: 15:35 Assessment/Plan VTE Prophylaxis VTE Prophylaxis Intervention: LMWH Lines/Catheters IV Catheter Type (from [facility]): [place] Urinary Cath still in place: No Assessment/Plan Chief Complaint/Hosp Course 1. Acute respiratory distress secondary to volume overload from underlying end- stage renal disease-improved Nephrology consultation appreciated, plan is to continue dialysis today Pneumonia is unlikely and the patient has been afebrile overnight and today hence will DC Levaquin 2. Atrial fibrillation with rapid ventricular response-stable Continue metoprolol p.o. Cardiology consultation appreciated 3. Non-STEMI Monitor troponins, currently stable, elevation likely secondary to tachyarrhythmia Patient did have recent PCI continue aspirin and Plavix Cardiology consultation appreciated 4. History of type 2 diabetes A1c at 6.3, continue NovoLog sliding scale 5. Anemia secondary end-stage renal disease Monitor 6. History of coronary artery disease Continue home meds 7. Hypertensive urgency-stable Prophylaxis: Lovenox Problems: Subjective 24 Hr Interval Summary Respiratory: shortness of breath Exam/Review of Systems Vital Signs Vitals Vital Signs Date Time Temp Pulse Resp B/P Pulse Ox O2 Delivery O2 Flow Rate FiO2 10/07/16 15:23 98.2 88 18 123/67 98 10/07/16 15:02 2.0 10/07/16 09:33 Nasal Cannula Intake and Output 10/06/16 10/06/16 10/07/16 15:00 23:00 07:00 Intake Total 1200 ml 200 ml Output Total 2300 ml Balance -1100 ml 200 ml Exam Constitutional: alert Respiratory: clear to auscultation Cardiovascular: regular rate and rhythm Gastrointestinal: soft, No distended Musculoskeletal: nl extremities to inspection Results Result Diagram: 10/07/16 0537 10/07/16 0537 Results 24 hrs Laboratory Tests Test 10/06/16 17:09 10/06/16 18:35 10/06/16 21:15 10/07/16 00:43 Bedside Glucose 207 239 H Creatine Kinase 33 32 Creatine Kinase Index 4.5 4.0 Creatinine Kinase MB (Mass) 1.47 1.27 Troponin I 0.327 *H 0.318 *H Test 10/07/16 05:37 10/07/16 07:44 10/07/16 12:04 Anion Gap 24 H Basophils # 0.1 Basophils % 0.9 Blood Urea Nitrogen 31 H Calcium Level 9.2 Carbon Dioxide Level 26 Chloride Level 94 L Cholesterol Level 110 Cholesterol/HDL Ratio 3.4 Creatinine 5.22 H Eosinophils # 0.1 Eosinophils % 0.9 Glucose Level 180 HDL Cholesterol 32 Hematocrit 26.4 L Hemoglobin 8.2 L LDL Cholesterol, Calculated 52 Lymphocytes # 1.3 Lymphocytes % 16.3 Mean Corpuscular Hemoglobin 27.2 L Mean Corpuscular Hemoglobin Concent 31.1 L Mean Corpuscular Volume 87.4 Mean Platelet Volume 10.8 H Monocytes # 0.5 Monocytes % 6.6 Neutrophils # 6.1 Neutrophils % 75.1 Nucleated Red Blood Cells # 0.0 Nucleated Red Blood Cells % 0.0 Platelet Count 301 Potassium Level 4.6 Red Blood Count 3.02 L Red Cell Distribution Width 15.7 H Sodium Level 139 Triglycerides Level 128 White Blood Count 8.1 Bedside Glucose 208 195 Medications Medications Current Medications Ondansetron HCl (Zofran Inj) 4 mg Q6H PRN IV NAUSEA AND/OR VOMITING; Start at 21:30 Acetaminophen (Tylenol Tab) 650 mg Q6H PRN PO PAIN LEVEL 1-3 OR FEVER; Start at 21:30 Acetaminophen/ Hydrocodone Bitart ([place] (5/325)) 1 tab Q6H PRN PO MODERATE PAIN LEVEL 4-6; Start 10/05/16 at 21:30 Morphine Sulfate (morphine) 2 mg Q4H PRN IV SEVERE PAIN LEVEL 7-10; Start 10/05 at 21:30 Docusate Sodium (Colace) 100 mg Q12H PRN PO CONSTIPATION; Start 10/05/16 at 21: 30 Magnesium Hydroxide (Milk Of Mag) 30 ml DAILY PRN PO CONSTIPATION; Start at 21:30 Sodium Biphosphate/ Sodium Phosphate (Fleet Enema) 133 ml DAILY PRN [place] CONSTIPATION; Start 10/05/16 at 21:30 Famotidine (Pepcid) 20 mg DAILY PO Last administered on 10/07/16 08:21; Admin Dose 20 MG; Start 10/06/16 at 09:00 Lorazepam (Ativan) 0.5 mg Q6H PRN IV ANXIETY Last administered on 10/06/16 15: 12; Admin Dose 0.5 MG; Start 10/05/16 at 21:30 Hydralazine HCl (Apresoline) 10 mg Q6H PRN IV ELEVATED SYSTOLIC BP Last administered on 10/07/16 05:23; Admin Dose 10 MG; Start 10/05/16 at 21:30 Clonidine (Catapres) 0.1 mg Q6H PRN PO ELEVATED SYSTOLIC BP; Start 10/05/16 at 21:30 Nitroglycerin (Nitroglycerin (Sl Tab) 0.4 Mg) 1 tab Q5M PRN SL ANGINA; Start at 21:30 Aspirin 325 mg 325 mg DAILY PO Last administered on 10/07/16 08:22; Admin Dose 325 MG; Start 10/06/16 at 09:00 Diltiazem HCl 125 ml @ 5 mls/hr TITRATE IV ; Start 10/05/16 at 22:00 Levofloxacin/ Dextrose (Levaquin 500mg/ D5W 100 ml (Pmx)) 100 ml @ 100 mls/hr Q48H IVPB ; Start 10/08/16 at 06:00 Diagnostic Test (Pha) (Accucheck) 1 ea 02 XX ; Start 10/07/16 at 02:00 Zolpidem Tartrate (Ambien) 5 mg HS PRN PO INSOMNIA Last administered on 01:08; Admin Dose 5 MG; Start 10/06/16 at 01:00 Miscellaneous Information 1 ea NOTE XX ; Start 10/06/16 at 01:00 Glucose (Glutose) 15 gm Q15M PRN PO DECREASED GLUCOSE; Start 10/06/16 at 01:00 Glucose (Glutose) 22.5 gm Q15M PRN PO DECREASED GLUCOSE; Start 10/06/16 at 01: 00 Dextrose (D50w Syringe) 25 ml Q15M PRN IV DECREASED GLUCOSE; Start 10/06/16 at 01:00 Dextrose (D50w Syringe) 50 ml Q15M PRN IV DECREASED GLUCOSE; Start 10/06/16 at 01:00 Glucagon (Glucagen) 1 mg Q15M PRN IM DECREASED GLUCOSE; Start 10/06/16 at 01:00 Glucose (Glutose) 15 gm Q15M PRN BUCCAL DECREASED GLUCOSE; Start 10/06/16 at 01 :00 Cyanocobalamin (Vitamin B12) 1,000 mcg DAILY PO Last administered on 10/07/16 08:22; Admin Dose 1,000 MCG; Start 10/06/16 at 09:00 Folic Acid (Folic Acid) 0.8 mg DAILY PO Last administered on 10/07/16 08:29; Admin Dose 0.8 MG; Start 10/06/16 at 09:00 Triamcinolone Acetonide (Kenalog 0.1% Oint) 1 applic BID TOP Last administered on 10/07/16 09:12; Admin Dose 1 APPLIC; Start 10/06/16 at 09:00 Ferrous Sulfate (Slow Fe) 142 mg DAILY PO Last administered on 10/07/16 09:12 ; Admin Dose 142 MG; Start 10/07/16 at 09:00 Magnesium Oxide (Mag-Ox 400) 400 mg DAILY PO Last administered on 10/07/16 08: 22; Admin Dose 400 MG; Start 10/06/16 at 13:00 Clopidogrel Bisulfate (plaVIX) 75 mg DAILY PO Last administered on 10/07/16 08 :22; Admin Dose 75 MG; Start 10/06/16 at 12:00 Metoprolol Tartrate (Lopressor) 25 mg BID PO Last administered on 10/07/16 08: 23; Admin Dose 25 MG; Start 10/06/16 at 21:00 Atorvastatin Calcium (Lipitor) 40 mg QHS PO Last administered on 10/06/16 21: 18; Admin Dose 40 MG; Start 10/06/16 at 21:00 Benazepril HCl (Lotensin) 40 mg DAILY PO Last administered on 10/07/16 08:23; Admin Dose 40 MG; Start 10/06/16 at 16:30 Nifedipine (Procardia Xl) 60 mg DAILY PO Last administered on 10/07/16 08:22; Admin Dose 60 MG; Start 10/06/16 at 16:08 Zolpidem Tartrate (Ambien) 10 mg QHS PRN PO INSOMNIA; Start 10/06/16 at 16:30 Lorazepam (Ativan) 1 mg HS PO ; Start 10/07/16 at 21:00 JANAE ELDRIDGE 17, 2017 15:39
[2016-10-07] MEDS: ACETAMINOPHEN 325 MG TAB PO PRN (16:26)
[2016-10-07] MEDS: LINAGLIPTIN 5 MG TABLET PO SCH (17:37)
--- NOTE | 2016-10-07 18:28 | CONS ---
Date/Time of Note Date/Time of Note DATE: 10/07/16 TIME: 18:19 Assessment/Plan Assessment/Plan Chief Complaint/Hosp Course IMPRESSION: 1. Atrial fibrillation with rapid ventricular response-now rate controlled 2. Abnormal electrocardiogram with inferolateral ST depressions. 3. Positive troponin, assess significance. 4. Cardiomyopathy, decreased left ventricular ejection fraction last approximately 45% by outside hospital paperwork at [facility] 09/09. Now approx 25% by echo here 5. History of PTCA and stent placement at [facility] recently.-per notes had PCI at [facility](08/2016)after being thought to be poor surgical candidate but cath report not sent from [place]. Had originally transferred from [facility] where was cathed and found to have 3VD after suffering [place]. 6. Renal failure. 7. Hypertension. 8. Shortness of breath. 9. Generalized weakness. 10. Diabetes mellitus. 11. Anemia. 12.CHF-systolic acute on chronic Recc: -Tele -Continue BB/ACEI/CCB -Continue asa/plavix/statin -Obtain cath report from [place] to see what was stented with possible need for repeat LHC given now worsened LVEF from that at [facility] just last month. -HD for volume removal. -SQ heparin Problems: Consultation Date/Type/Reason Admit Date/Time Oct 05, 2016 at 21:04 Initial Consult Date 10/06/2016 Type of Consultation: Cardiology Reason for Consultation AF/positive troponin Referring Provider: JANAE ELDRIDGE Exam/Review of Systems Vital Signs Vitals Vital Signs Date Time Temp Pulse Resp B/P Pulse Ox O2 Delivery O2 Flow Rate FiO2 10/07/16 17:40 103 10/07/16 15:45 16 10/07/16 15:23 98.2 123/67 98 10/07/16 15:02 2.0 10/07/16 09:33 Nasal Cannula Intake and Output 10/06/16 10/06/16 10/07/16 15:00 23:00 07:00 Intake Total 1200 ml 200 ml Output Total 2300 ml Balance -1100 ml 200 ml Exam Review of Systems: CONSTITUTIONAL: No fevers, chills. PULMONARY: No sob CARDIOVASCULAR: No chest pain/palpitations GASTROINTESTINAL: No nausea/vomiting. GENITOURINARY: No hematuria/dysuria. MUSCULOSKELETAL: No myagias/arthalgias. PSYCHIATRIC: The patient denies depression. NEUROLOGIC: Generalized weakness Constitutional: alert Psych: no complaints Head: normocephalic ENMT: mucosa pink and moist Neck: jvd (9 cm water), supple Respiratory: diminished breath sounds (at bases/B) Cardiovascular: irregular rhythm Gastrointestinal: non-tender, soft Musculoskeletal: muscle tone (normal) Extremities: edema (none) Neurological: lethargic Results Result Diagram: 10/07/16 0537 10/07/16 0537 Results 24 hrs Laboratory Tests Test 10/06/16 18:35 10/06/16 21:15 10/07/16 00:43 10/07/16 05:37 Creatine Kinase 33 32 Creatine Kinase Index 4.5 4.0 Creatinine Kinase MB (Mass) 1.47 1.27 Troponin I 0.327 *H 0.318 *H Bedside Glucose 239 H Anion Gap 24 H Basophils # 0.1 Basophils % 0.9 Blood Urea Nitrogen 31 H Calcium Level 9.2 Carbon Dioxide Level 26 Chloride Level 94 L Cholesterol Level 110 Cholesterol/HDL Ratio 3.4 Creatinine 5.22 H Eosinophils # 0.1 Eosinophils % 0.9 Glucose Level 180 HDL Cholesterol 32 Hematocrit 26.4 L Hemoglobin 8.2 L LDL Cholesterol, Calculated 52 Lymphocytes # 1.3 Lymphocytes % 16.3 Mean Corpuscular Hemoglobin 27.2 L Mean Corpuscular Hemoglobin Concent 31.1 L Mean Corpuscular Volume 87.4 Mean Platelet Volume 10.8 H Monocytes # 0.5 Monocytes % 6.6 Neutrophils # 6.1 Neutrophils % 75.1 Nucleated Red Blood Cells # 0.0 Nucleated Red Blood Cells % 0.0 Platelet Count 301 Potassium Level 4.6 Red Blood Count 3.02 L Red Cell Distribution Width 15.7 H Sodium Level 139 Triglycerides Level 128 White Blood Count 8.1 Test 10/07/16 07:44 10/07/16 12:04 10/07/16 17:35 Bedside Glucose 208 195 247 H Medications Medications Current Medications Ondansetron HCl (Zofran Inj) 4 mg Q6H PRN IV NAUSEA AND/OR VOMITING; Start at 21:30 Acetaminophen (Tylenol Tab) 650 mg Q6H PRN PO PAIN LEVEL 1-3 OR FEVER Last administered on 10/07/16t 16:26; Admin Dose 650 MG; Start 10/05/16 at 21:30 Acetaminophen/ Hydrocodone Bitart ([place] (5/325)) 1 tab Q6H PRN PO MODERATE PAIN LEVEL 4-6; Start 10/05/16 at 21:30 Morphine Sulfate (morphine) 2 mg Q4H PRN IV SEVERE PAIN LEVEL 7-10; Start 10/05 at 21:30 Docusate Sodium (Colace) 100 mg Q12H PRN PO CONSTIPATION; Start 10/05/16 at 21: 30 Magnesium Hydroxide (Milk Of Mag) 30 ml DAILY PRN PO CONSTIPATION; Start at 21:30 Sodium Biphosphate/ Sodium Phosphate (Fleet Enema) 133 ml DAILY PRN [place] CONSTIPATION; Start 10/05/16 at 21:30 Famotidine (Pepcid) 20 mg DAILY PO Last administered on 10/07/16 08:21; Admin Dose 20 MG; Start 10/06/16 at 09:00 Lorazepam (Ativan) 0.5 mg Q6H PRN IV ANXIETY Last administered on 10/06/16 15: 12; Admin Dose 0.5 MG; Start 10/05/16 at 21:30 Hydralazine HCl (Apresoline) 10 mg Q6H PRN IV ELEVATED SYSTOLIC BP Last administered on 10/07/16 05:23; Admin Dose 10 MG; Start 10/05/16 at 21:30 Clonidine (Catapres) 0.1 mg Q6H PRN PO ELEVATED SYSTOLIC BP; Start 10/05/16 at 21:30 Nitroglycerin (Nitroglycerin (Sl Tab) 0.4 Mg) 1 tab Q5M PRN SL ANGINA; Start at 21:30 Aspirin 325 mg 325 mg DAILY PO Last administered on 10/07/16 08:22; Admin Dose 325 MG; Start 10/06/16 at 09:00 Diltiazem HCl (Cardizem-D5W 125 Mg/125 ml Drip) 125 ml @ 5 mls/hr TITRATE IV ; Start 10/05/16 at 22:00 Diagnostic Test (Pha) (Accucheck) 1 ea 02 XX ; Start 10/07/16 at 02:00 Zolpidem Tartrate (Ambien) 5 mg HS PRN PO INSOMNIA Last administered on 01:08; Admin Dose 5 MG; Start 10/06/16 at 01:00 Miscellaneous Information 1 ea NOTE XX ; Start 10/06/16 at 01:00 Glucose (Glutose) 15 gm Q15M PRN PO DECREASED GLUCOSE; Start 10/06/16 at 01:00 Glucose (Glutose) 22.5 gm Q15M PRN PO DECREASED GLUCOSE; Start 10/06/16 at 01: 00 Dextrose (D50w Syringe) 25 ml Q15M PRN IV DECREASED GLUCOSE; Start 10/06/16 at 01:00 Dextrose (D50w Syringe) 50 ml Q15M PRN IV DECREASED GLUCOSE; Start 10/06/16 at 01:00 Glucagon (Glucagen) 1 mg Q15M PRN IM DECREASED GLUCOSE; Start 10/06/16 at 01:00 Glucose (Glutose) 15 gm Q15M PRN BUCCAL DECREASED GLUCOSE; Start 10/06/16 at 01 :00 Cyanocobalamin (Vitamin B12) 1,000 mcg DAILY PO Last administered on 10/07/16 08:22; Admin Dose 1,000 MCG; Start 10/06/16 at 09:00 Folic Acid (Folic Acid) 0.8 mg DAILY PO Last administered on 10/07/16 08:29; Admin Dose 0.8 MG; Start 10/06/16 at 09:00 Triamcinolone Acetonide (Kenalog 0.1% Oint) 1 applic BID TOP Last administered on 10/07/16 09:12; Admin Dose 1 APPLIC; Start 10/06/16 at 09:00 Ferrous Sulfate (Slow Fe) 142 mg DAILY PO Last administered on 10/07/16 09:12 ; Admin Dose 142 MG; Start 10/07/16 at 09:00 Magnesium Oxide (Mag-Ox 400) 400 mg DAILY PO Last administered on 10/07/16 08: 22; Admin Dose 400 MG; Start 10/06/16 at 13:00 Clopidogrel Bisulfate (plaVIX) 75 mg DAILY PO Last administered on 10/07/16 08 :22; Admin Dose 75 MG; Start 10/06/16 at 12:00 Metoprolol Tartrate (Lopressor) 25 mg BID PO Last administered on 10/07/16 08: 23; Admin Dose 25 MG; Start 10/06/16 at 21:00 Atorvastatin Calcium (Lipitor) 40 mg QHS PO Last administered on 10/06/16 21: 18; Admin Dose 40 MG; Start 10/06/16 at 21:00 Benazepril HCl (Lotensin) 40 mg DAILY PO Last administered on 10/07/16 08:23; Admin Dose 40 MG; Start 10/06/16 at 16:30 Nifedipine (Procardia Xl) 60 mg DAILY PO Last administered on 10/07/16 08:22; Admin Dose 60 MG; Start 10/06/16 at 16:08 Zolpidem Tartrate (Ambien) 10 mg QHS PRN PO INSOMNIA; Start 10/06/16 at 16:30 Lorazepam (Ativan) 1 mg HS PO ; Start 10/07/16 at 21:00 Insulin Glargine (Lantus) 10 unit HS SC ; Start 10/07/16 at 21:00 Linagliptin (Tradjenta) 5 mg DAILY PO Last administered on 10/07/16 17:37; Admin Dose 5 MG; Start 10/07/16 at 17:00 AIYANA LANG 17, 2017 18:28
[2016-10-07] MEDS: DIGOXIN 500 MCG INJ IV SCH (19:08)
[2016-10-07] MEDS: METOPROLOL (XL) 25 MG TAB PO SCH (20:09)
[2016-10-07] MEDS: ATORVASTATIN 40 MG TAB PO SCH (20:09)
[2016-10-07] MEDS: LORAZEPAM 0.5 MG TAB PO SCH (20:09)
[2016-10-07] MEDS: INSULIN GLARGINE [LANtus] 3 ML PEN SC SCH (20:14)
[2016-10-08] VITALS (12 sets, daily range): BP systolic 119–159; BP diastolic 62–82; PULSE 73–90; RESP 17–30
[2016-10-08] MEDS: ACCU-CHEK XX SCH (01:58)
[2016-10-08] MEDS: DIGOXIN 500 MCG INJ IV SCH (02:34)
[2016-10-08] MEDS ORDERED: LEVOFLOXACIN 500MG/D5W (PMX) 100 ML IVPB SCH (06:00)
[2016-10-08] MEDS: INSULIN ASPART [NOVOLOG] 3 ML PEN SC SCH ×4 (07:55→21:00)
[2016-10-08] MEDS: FOLIC ACID 0.4 MG TAB PO SCH (08:29)
[2016-10-08] MEDS: MAGNESIUM OXIDE 400 MG TAB PO SCH (08:29)
[2016-10-08] MEDS: METOPROLOL (XL) 25 MG TAB PO SCH ×2 (08:31→21:47)
[2016-10-08] MEDS: ASPIRIN (EC) 325 MG TAB PO SCH (08:31)
[2016-10-08] MEDS: CYANOCOBALAMIN 500 MCG TAB PO SCH (08:32)
[2016-10-08] MEDS: FERROUS SULFATE (SR) 142 MG TAB PO SCH (08:33)
[2016-10-08] MEDS: BENAZEPRIL 40 MG TAB PO SCH (08:33)
[2016-10-08] MEDS: FAMOTIDINE 20 MG TAB PO SCH (08:33)
[2016-10-08] MEDS: CLOPIDOGREL 75 MG TAB PO SCH (08:33)
[2016-10-08] MEDS: TRIAMCINOLONE ACET 0.1% 15 GM OINT TOP SCH ×2 (08:35→21:00)
[2016-10-08] MEDS: NIFEdipine (XL) 60 MG TAB PO SCH (08:36)
[2016-10-08 08:50] LABS: ADD SCAN DIFF NO
[2016-10-08 08:59] LABS: BASOPHIL # 0.1 10^3/ul (0.0-0.1); BASOPHILS % 0.8 % (0.0-2.0); EOSINOPHILS # 0.2 10^3/ul (0.0-0.5); HEMATOCRIT 28.4 % (42.0-52.0); HEMOGLOBIN 8.6 g/dl (14.0-18.0); LYMPHOCYTES # 1.2 10^3/ul (0.8-2.9); LYMPHOCYTES % 16.5 % (15.0-51.0); MEAN CORPUSCULAR HEMOGLOBIN 26.8 pg (29.0-33.0); MEAN CORPUSCULAR HGB CONC 30.3 g/dl (32.0-37.0); MEAN CORPUSCULAR VOLUME 88.5 fl (82.0-101.0); MEAN PLATELET VOLUME 10.7 fl (7.4-10.4); MONOCYTE # 0.6 10^3/ul (0.3-0.9); MONOCYTES % 7.8 % (0.0-11.0); NEUTROPHIL # 5.4 10^3/ul (1.6-7.5); NEUTROPHILS % 72.6 % (39.0-77.0); PLATELET COUNT 292 10^3/UL (140-415); RED BLOOD COUNT 3.21 10^6/ul (4.70-6.10); RED CELL DISTRIBUTION WIDTH 15.9 % (11.5-14.5); WHITE BLOOD COUNT 7.4 10^3/ul (4.8-10.8)
[2016-10-08 09:14] LABS: POTASSIUM 3.9 mmol/L (3.5-5.1)
[2016-10-08 09:16] LABS: CREATININE 4.74 mg/dl (0.61-1.24)
[2016-10-08 09:17] LABS: CALCIUM 8.8 mg/dl (8.4-10.2)
--- NOTE | 2016-10-08 11:32 | CONS ---
Date/Time of Note Date/Time of Note DATE: 10/08/16 TIME: 11:24 Consult Date/Type/Reason Admit Date/Time Oct 05, 2016 at 21:04 Initial Consult Date Type of Consultation: neph Ordering Provider: JANAE ELRDIDGE Subjective The patient is stable, on hd yesterday. POC reviewed with Dr. Tolbert. OBJECTIVE: HEENT: Head is normocephalic. NECK: Supple. HEART: Regular rate. LUNGS: Show diminished breath sounds at base. ABDOMEN: Soft, nontender to palpation without rebound or guarding. EXTREMITIES: Negative for clubbing, cyanosis, edema. DERMATOLOGIC: No rashes. MUSCULOSKELETAL: No joint effusions. NEUROLOGIC: No change in exam. MEDICATIONS: Reviewed. Objective Vital Signs Date Time Temp Pulse Resp B/P Pulse Ox O2 Delivery O2 Flow Rate FiO2 10/08/16 08:08 90 10/08/16 07:57 98.2 17 148/73 92 10/08/16 05:32 2.0 10/07/16 09:33 Nasal Cannula Intake and Output 10/07/16 10/07/16 10/08/16 15:00 23:00 07:00 Intake Total 500 ml 550 ml Output Total 3000 ml Balance -2500 ml 550 ml Results/Medications Result Diagram: 10/08/16 0811 10/08/16 0811 Results 24 hrs Laboratory Tests Test 10/07/16 12:04 10/07/16 17:35 10/07/16 20:07 10/08/16 07:55 Bedside Glucose 195 247 H 216 71 Test 10/08/16 08:11 Anion Gap 18 H Basophils # 0.1 Basophils % 0.8 Blood Urea Nitrogen 26 H Calcium Level 8.8 Carbon Dioxide Level 30 Chloride Level 97 Creatinine 4.74 H Eosinophils # 0.2 Eosinophils % 2.0 Glucose Level 68 #L Hematocrit 28.4 L Hemoglobin 8.6 L Lymphocytes # 1.2 Lymphocytes % 16.5 Mean Corpuscular Hemoglobin 26.8 L Mean Corpuscular Hemoglobin Concent 30.3 L Mean Corpuscular Volume 88.5 Mean Platelet Volume 10.7 H Monocytes # 0.6 Monocytes % 7.8 Neutrophils # 5.4 Neutrophils % 72.6 Nucleated Red Blood Cells # 0.0 Nucleated Red Blood Cells % 0.0 Platelet Count 292 Potassium Level 3.9 Red Blood Count 3.21 L Red Cell Distribution Width 15.9 H Sodium Level 141 White Blood Count 7.4 Medications Current Medications Ondansetron HCl (Zofran Inj) 4 mg Q6H PRN IV NAUSEA AND/OR VOMITING; Start at 21:30 Acetaminophen (Tylenol Tab) 650 mg Q6H PRN PO PAIN LEVEL 1-3 OR FEVER Last administered on 10/07/16 16:26; Admin Dose 650 MG; Start 10/05/16 at 21:30 Acetaminophen/ Hydrocodone Bitart ([place] (5/325)) 1 tab Q6H PRN PO MODERATE PAIN LEVEL 4-6; Start 10/05/16 at 21:30 Morphine Sulfate (morphine) 2 mg Q4H PRN IV SEVERE PAIN LEVEL 7-10; Start 10/05 at 21:30 Docusate Sodium (Colace) 100 mg Q12H PRN PO CONSTIPATION; Start 10/05/16 at 21: 30 Magnesium Hydroxide (Milk Of Mag) 30 ml DAILY PRN PO CONSTIPATION; Start at 21:30 Sodium Biphosphate/ Sodium Phosphate (Fleet Enema) 133 ml DAILY PRN [place] CONSTIPATION; Start 10/05/16 at 21:30 Famotidine (Pepcid) 20 mg DAILY PO Last administered on 10/08/16 08:33; Admin Dose 20 MG; Start 10/06/16 at 09:00 Lorazepam (Ativan) 0.5 mg Q6H PRN IV ANXIETY Last administered on 10/06/16 15: 12; Admin Dose 0.5 MG; Start 10/05/16 at 21:30 Hydralazine HCl (Apresoline) 10 mg Q6H PRN IV ELEVATED SYSTOLIC BP Last administered on 10/07/16 05:23; Admin Dose 10 MG; Start 10/05/16 at 21:30 Clonidine (Catapres) 0.1 mg Q6H PRN PO ELEVATED SYSTOLIC BP; Start 10/05/16 at 21:30 Nitroglycerin (Nitroglycerin (Sl Tab) 0.4 Mg) 1 tab Q5M PRN SL ANGINA; Start at 21:30 Aspirin 325 mg 325 mg DAILY PO Last administered on 10/08/16 08:31; Admin Dose 325 MG; Start 10/06/16 at 09:00 Diltiazem HCl (Cardizem-D5W 125 Mg/125 ml Drip) 125 ml @ 5 mls/hr TITRATE IV ; Start 10/05/16 at 22:00 Diagnostic Test (Pha) (Accucheck) 1 ea 02 XX ; Start 10/07/16 at 02:00 Zolpidem Tartrate (Ambien) 5 mg HS PRN PO INSOMNIA Last administered on 01:08; Admin Dose 5 MG; Start 10/06/16 at 01:00 Miscellaneous Information 1 ea NOTE XX ; Start 10/06/16 at 01:00 Glucose (Glutose) 15 gm Q15M PRN PO DECREASED GLUCOSE; Start 10/06/16 at 01:00 Glucose (Glutose) 22.5 gm Q15M PRN PO DECREASED GLUCOSE; Start 10/06/16 at 01: 00 Dextrose (D50w Syringe) 25 ml Q15M PRN IV DECREASED GLUCOSE; Start 10/06/16 at 01:00 Dextrose (D50w Syringe) 50 ml Q15M PRN IV DECREASED GLUCOSE; Start 10/06/16 at 01:00 Glucagon (Glucagen) 1 mg Q15M PRN IM DECREASED GLUCOSE; Start 10/06/16 at 01:00 Glucose (Glutose) 15 gm Q15M PRN BUCCAL DECREASED GLUCOSE; Start 10/06/16 at 01 :00 Cyanocobalamin (Vitamin B12) 1,000 mcg DAILY PO Last administered on 10/08/16 08:32; Admin Dose 1,000 MCG; Start 10/06/16 at 09:00 Folic Acid (Folic Acid) 0.8 mg DAILY PO Last administered on 10/08/16 08:29; Admin Dose 0.8 MG; Start 10/06/16 at 09:00 Triamcinolone Acetonide (Kenalog 0.1% Oint) 1 applic BID TOP Last administered on 10/08/16 08:35; Admin Dose 1 APPLIC; Start 10/06/16 at 09:00 Ferrous Sulfate (Slow Fe) 142 mg DAILY PO Last administered on 10/08/16 08:33 ; Admin Dose 142 MG; Start 10/07/16 at 09:00 Magnesium Oxide (Mag-Ox 400) 400 mg DAILY PO Last administered on 10/08/16 08: 29; Admin Dose 400 MG; Start 10/06/16 at 13:00 Clopidogrel Bisulfate (plaVIX) 75 mg DAILY PO Last administered on 10/08/16 08 :33; Admin Dose 75 MG; Start 10/06/16 at 12:00 Atorvastatin Calcium (Lipitor) 40 mg QHS PO Last administered on 10/07/16 20: 09; Admin Dose 40 MG; Start 10/06/16 at 21:00 Benazepril HCl (Lotensin) 40 mg DAILY PO Last administered on 10/08/16 08:33; Admin Dose 40 MG; Start 10/06/16 at 16:30 Nifedipine (Procardia Xl) 60 mg DAILY PO Last administered on 10/08/16 08:36; Admin Dose 60 MG; Start 10/06/16 at 16:08 Zolpidem Tartrate (Ambien) 10 mg QHS PRN PO INSOMNIA; Start 10/06/16 at 16:30 Lorazepam (Ativan) 1 mg HS PO Last administered on 10/07/16 20:09; Admin Dose 1 MG; Start 10/07/16 at 21:00 Insulin Glargine (Lantus) 10 unit HS SC Last administered on 10/07/16 20:14; Admin Dose 10 UNIT; Start 10/07/16 at 21:00 Linagliptin (Tradjenta) 5 mg DAILY PO Last administered on 10/07/16 17:37; Admin Dose 5 MG; Start 10/07/16 at 17:00 Metoprolol Succinate (Toprol Xl) 25 mg BID PO Last administered on 10/08/16 08 :31; Admin Dose 25 MG; Start 10/07/16 at 21:00 Assessment/Plan Chief Complaint/Hosp Course ASSESSMENT AND PLAN: 1. End-stage renal disease. The patient is on dialysis Monday, Monday, and Monday. The patient had hemodialysis yesterday, tolerated well. 2. Anemia of chronic kidney disease. Hemoglobin level stable, continue to monitor, give Epogen as needed. 3. Mineral bone disorder. Continue to monitor calcium and phosphorus levels. Continue phosphate binders as needed. 4. Hypertension. Continue ultrafiltration dialysis. Continue current blood pressure regimen. 5. Sepsis secondary to pneumonia. Continue current antibiotic regimen. The patient is clinically improving. Cultures have been reviewed. 6. Atrial fibrillation, rate controlled. Continue medical management. 7. Elevated troponin, possible non-STEMI type 1 versus type 2. Continue medical management and follow up with cardiology. 8. Diabetes. Continue Accu-Cheks with insulin sliding scale. 9. Acute hypoxemic respiratory failure secondary to pneumonia, volume overload. Continue current medical management. Continue antibiotics, nebulizers, supplemental oxygen, and ultrafiltration with dialysis. Problems: DELGADO GRAFF MD Oct 08, 2016 11:32
[2016-10-08] MEDS: LINAGLIPTIN 5 MG TABLET PO SCH (11:54)
--- NOTE | 2016-10-08 13:30 | CONS ---
Date/Time of Note Date/Time of Note DATE: 10/08/16 TIME: 13:27 Assessment/Plan Assessment/Plan Additional Assessment/Plan 1. Atrial fibrillation with rapid ventricular response-now rate controlled- RATE BETTER NOW 2. Abnormal electrocardiogram with inferolateral ST depressions- a. fib as noted. 3. Positive troponin, assess significance- no CP- no intervention planned today 4. Cardiomyopathy, decreased left ventricular ejection fraction last approximately 45% by outside hospital paperwork at [facility] 09/09. Now approx 25% by echo here - outpt ICD 5. History of PTCA and stent placement at [facility] recently.-per notes had PCI at [facility](08/2016)after being thought to be poor surgical candidate but cath report not sent from [place]. Had originally transferred from [facility] where was cathed and found to have 3VD after suffering [place]. 6. Renal failure- avoid nephrotoxic meds now. 7. Hypertension. 8. Shortness of breath. 9. Generalized weakness. 10. Diabetes mellitus. 11. Anemia. 12.CHF-systolic acute on chronic- better fluid status now. Consultation Date/Type/Reason Admit Date/Time Oct 05, 2016 at 21:04 Initial Consult Date Type of Consultation: neph Referring Provider: JANAE ELDRIDGE 24 HR Interval Summary Free Text/Dictation NO acute change - pt feels much beter today - family at bedside - happy with care. ROS: No fever, no chills, no nausea, no vomiting, no diarrhea/constipation No recent weight changes No chest pain, no PND, no orthopnea No dizziness, blurred vision No thirst, no heat or cold intolerance Exam/Review of Systems Vital Signs Vitals Vital Signs Date Time Temp Pulse Resp B/P Pulse Ox O2 Delivery O2 Flow Rate FiO2 10/08/16 12:00 79 10/08/16 11:29 97.9 17 119/62 95 10/08/16 05:32 2.0 10/07/16 09:33 Nasal Cannula Intake and Output 10/07/16 10/07/16 10/08/16 15:00 23:00 07:00 Intake Total 500 ml 550 ml Output Total 3000 ml Balance -2500 ml 550 ml Exam General: WN/WD/NAD, AOx 3 HEENT: Unicetric/atraumatic/EOMI (follow commands) NECK: JVD elevated, no thyromegaly Lymph: no lymphadenopathy HEART: IRregular with no S3, II/ systolic murmur at apex LUNGS: Coarse sounds ABD: soft, NT, ND, +BS : Intact Neuro: non focal SKIN: chronic changes EXT: trace edema Results Result Diagram: 10/08/16 0811 10/08/16 0811 Results 24 hrs Laboratory Tests Test 10/07/16 17:35 10/07/16 20:07 10/08/16 07:55 10/08/16 08:11 Bedside Glucose 247 H 216 71 Anion Gap 18 H Basophils # 0.1 Basophils % 0.8 Blood Urea Nitrogen 26 H Calcium Level 8.8 Carbon Dioxide Level 30 Chloride Level 97 Creatinine 4.74 H Eosinophils # 0.2 Eosinophils % 2.0 Glucose Level 68 #L Hematocrit 28.4 L Hemoglobin 8.6 L Lymphocytes # 1.2 Lymphocytes % 16.5 Mean Corpuscular Hemoglobin 26.8 L Mean Corpuscular Hemoglobin Concent 30.3 L Mean Corpuscular Volume 88.5 Mean Platelet Volume 10.7 H Monocytes # 0.6 Monocytes % 7.8 Neutrophils # 5.4 Neutrophils % 72.6 Nucleated Red Blood Cells # 0.0 Nucleated Red Blood Cells % 0.0 Platelet Count 292 Potassium Level 3.9 Red Blood Count 3.21 L Red Cell Distribution Width 15.9 H Sodium Level 141 White Blood Count 7.4 Test 10/08/16 11:23 Bedside Glucose 182 Medications Medications Current Medications Ondansetron HCl (Zofran Inj) 4 mg Q6H PRN IV NAUSEA AND/OR VOMITING; Start at 21:30 Acetaminophen (Tylenol Tab) 650 mg Q6H PRN PO PAIN LEVEL 1-3 OR FEVER Last administered on 10/07/16t 16:26; Admin Dose 650 MG; Start 10/05/16 at 21:30 Acetaminophen/ Hydrocodone Bitart ([place] (5/325)) 1 tab Q6H PRN PO MODERATE PAIN LEVEL 4-6; Start 10/05/16 at 21:30 Morphine Sulfate (morphine) 2 mg Q4H PRN IV SEVERE PAIN LEVEL 7-10; Start 10/05 at 21:30 Docusate Sodium (Colace) 100 mg Q12H PRN PO CONSTIPATION; Start 10/05/16 at 21: 30 Magnesium Hydroxide (Milk Of Mag) 30 ml DAILY PRN PO CONSTIPATION; Start at 21:30 Sodium Biphosphate/ Sodium Phosphate (Fleet Enema) 133 ml DAILY PRN [place] CONSTIPATION; Start 10/05/16 at 21:30 Famotidine (Pepcid) 20 mg DAILY PO Last administered on 10/08/16 08:33; Admin Dose 20 MG; Start 10/06/16 at 09:00 Lorazepam (Ativan) 0.5 mg Q6H PRN IV ANXIETY Last administered on 10/06/16 15: 12; Admin Dose 0.5 MG; Start 10/05/16 at 21:30 Hydralazine HCl (Apresoline) 10 mg Q6H PRN IV ELEVATED SYSTOLIC BP Last administered on 10/07/16 05:23; Admin Dose 10 MG; Start 10/05/16 at 21:30 Clonidine (Catapres) 0.1 mg Q6H PRN PO ELEVATED SYSTOLIC BP; Start 10/05/16 at 21:30 Nitroglycerin (Nitroglycerin (Sl Tab) 0.4 Mg) 1 tab Q5M PRN SL ANGINA; Start at 21:30 Aspirin 325 mg 325 mg DAILY PO Last administered on 10/08/16 08:31; Admin Dose 325 MG; Start 10/06/16 at 09:00 Diltiazem HCl (Cardizem-D5W 125 Mg/125 ml Drip) 125 ml @ 5 mls/hr TITRATE IV ; Start 10/05/16 at 22:00 Diagnostic Test (Pha) (Accucheck) 1 ea 02 XX ; Start 10/07/16 at 02:00 Zolpidem Tartrate (Ambien) 5 mg HS PRN PO INSOMNIA Last administered on 01:08; Admin Dose 5 MG; Start 10/06/16 at 01:00 Miscellaneous Information 1 ea NOTE XX ; Start 10/06/16 at 01:00 Glucose (Glutose) 15 gm Q15M PRN PO DECREASED GLUCOSE; Start 10/06/16 at 01:00 Glucose (Glutose) 22.5 gm Q15M PRN PO DECREASED GLUCOSE; Start 10/06/16 at 01: 00 Dextrose (D50w Syringe) 25 ml Q15M PRN IV DECREASED GLUCOSE; Start 10/06/16 at 01:00 Dextrose (D50w Syringe) 50 ml Q15M PRN IV DECREASED GLUCOSE; Start 10/06/16 at 01:00 Glucagon (Glucagen) 1 mg Q15M PRN IM DECREASED GLUCOSE; Start 10/06/16 at 01:00 Glucose (Glutose) 15 gm Q15M PRN BUCCAL DECREASED GLUCOSE; Start 10/06/16 at 01 :00 Cyanocobalamin (Vitamin B12) 1,000 mcg DAILY PO Last administered on 10/08/16 08:32; Admin Dose 1,000 MCG; Start 10/06/16 at 09:00 Folic Acid (Folic Acid) 0.8 mg DAILY PO Last administered on 10/08/16 08:29; Admin Dose 0.8 MG; Start 10/06/16 at 09:00 Triamcinolone Acetonide (Kenalog 0.1% Oint) 1 applic BID TOP Last administered on 10/08/16 08:35; Admin Dose 1 APPLIC; Start 10/06/16 at 09:00 Ferrous Sulfate (Slow Fe) 142 mg DAILY PO Last administered on 10/08/16 08:33 ; Admin Dose 142 MG; Start 10/07/16 at 09:00 Magnesium Oxide (Mag-Ox 400) 400 mg DAILY PO Last administered on 10/08/16 08: 29; Admin Dose 400 MG; Start 10/06/16 at 13:00 Clopidogrel Bisulfate (plaVIX) 75 mg DAILY PO Last administered on 10/08/16 08 :33; Admin Dose 75 MG; Start 10/06/16 at 12:00 Atorvastatin Calcium (Lipitor) 40 mg QHS PO Last administered on 10/07/16 20: 09; Admin Dose 40 MG; Start 10/06/16 at 21:00 Benazepril HCl (Lotensin) 40 mg DAILY PO Last administered on 10/08/16 08:33; Admin Dose 40 MG; Start 10/06/16 at 16:30 Nifedipine (Procardia Xl) 60 mg DAILY PO Last administered on 10/08/16 08:36; Admin Dose 60 MG; Start 10/06/16 at 16:08 Zolpidem Tartrate (Ambien) 10 mg QHS PRN PO INSOMNIA; Start 10/06/16 at 16:30 Lorazepam (Ativan) 1 mg HS PO Last administered on 10/07/16 20:09; Admin Dose 1 MG; Start 10/07/16 at 21:00 Insulin Glargine (Lantus) 10 unit HS SC Last administered on 10/07/16 20:14; Admin Dose 10 UNIT; Start 10/07/16 at 21:00 Linagliptin (Tradjenta) 5 mg DAILY PO Last administered on 10/08/16 11:54; Admin Dose 5 MG; Start 10/07/16 at 17:00 Metoprolol Succinate (Toprol Xl) 25 mg BID PO Last administered on 10/08/16 08 :31; Admin Dose 25 MG; Start 10/07/16 at 21:00 BALAJI YI MD Oct 08, 2016 13:29
--- NOTE | 2016-10-08 13:32 | RADRPT ---
PROCEDURE: XR Chest. CLINICAL INDICATION: Shortness of breath. TECHNIQUE: Single frontal view. COMPARISON: 10/05/2016. FINDINGS: There is a tunneled right internal jugular vein dialysis catheter with the tip in the lower superior vena cava. There is atelectasis at the lung bases, improved. Left is worse than right. The lungs are otherwise clear. The heart size is normal. There is calcification in the aorta consistent with atherosclerosis. There are small bilateral pleural effusions with left larger than right. These are also improved. There is no pneumothorax. IMPRESSION: 1. Improved appearance of the lungs and smaller bilateral pleural effusions. 2. No other change from 10/05/2016. RPTAT: QQ .Glen Walton MD, MD Date Time Electronically viewed and signed by .Glen Walton MD, MD on 10/08/2016 13:32 .R/
--- NOTE | 2016-10-08 17:58 | PN ---
Date/Time of Note Date/Time of Note DATE: 10/08/16 TIME: 17:55 Assessment/Plan VTE Prophylaxis VTE Prophylaxis Intervention: LMWH Lines/Catheters [facility] (from [facility] Peripheral IV Urinary Cath still in place: No Assessment/Plan Chief Complaint/Hosp Course 1. Acute respiratory distress secondary to volume overload from underlying end- stage renal disease-improved Nephrology consultation appreciated Chest x-ray still shows fluid although improved, will discuss dialyzing once again today Pneumonia is unlikely and the patient has been afebrile overnight and today hence will DC Levaquin 2. Atrial fibrillation with rapid ventricular response-has converted back to sinus Continue metoprolol p.o. Cardiology consultation appreciated 3. Non-STEMI Monitor troponins, currently stable, elevation likely secondary to tachyarrhythmia Patient did have recent PCI continue aspirin and Plavix Cardiology consultation appreciated 4. History of type 2 diabetes A1c at 6.3, continue NovoLog sliding scale 5. Anemia secondary end-stage renal disease Monitor 6. History of coronary artery disease Continue home meds 7. Hypertensive urgency-stable Prophylaxis: Lovenox Problems: Subjective 24 Hr Interval Summary Respiratory: shortness of breath Exam/Review of Systems Vital Signs Vitals Vital Signs Date Time Temp Pulse Resp B/P Pulse Ox O2 Delivery O2 Flow Rate FiO2 10/08/16 17:05 2.0 10/08/16 16:04 77 10/08/16 15:16 98.5 17 143/73 96 10/07/16 09:33 Nasal Cannula Intake and Output 10/07/16 10/07/16 10/08/16 15:00 23:00 07:00 Intake Total 500 ml 550 ml Output Total 3000 ml Balance -2500 ml 550 ml Exam Constitutional: alert, oriented Respiratory: clear to auscultation Cardiovascular: regular rate and rhythm Gastrointestinal: soft, No distended Musculoskeletal: nl extremities to inspection Results Result Diagram: 10/08/16 0811 10/08/16 0811 Results 24 hrs Laboratory Tests Test 10/07/16 20:07 10/08/16 07:55 10/08/16 08:11 10/08/16 11:23 Bedside Glucose 216 71 182 Anion Gap 18 H Basophils # 0.1 Basophils % 0.8 Blood Urea Nitrogen 26 H Calcium Level 8.8 Carbon Dioxide Level 30 Chloride Level 97 Creatinine 4.74 H Eosinophils # 0.2 Eosinophils % 2.0 Glucose Level 68 #L Hematocrit 28.4 L Hemoglobin 8.6 L Lymphocytes # 1.2 Lymphocytes % 16.5 Mean Corpuscular Hemoglobin 26.8 L Mean Corpuscular Hemoglobin Concent 30.3 L Mean Corpuscular Volume 88.5 Mean Platelet Volume 10.7 H Monocytes # 0.6 Monocytes % 7.8 Neutrophils # 5.4 Neutrophils % 72.6 Nucleated Red Blood Cells # 0.0 Nucleated Red Blood Cells % 0.0 Platelet Count 292 Potassium Level 3.9 Red Blood Count 3.21 L Red Cell Distribution Width 15.9 H Sodium Level 141 White Blood Count 7.4 Test 10/08/16 17:43 Bedside Glucose 195 Medications Medications Current Medications Ondansetron HCl (Zofran Inj) 4 mg Q6H PRN IV NAUSEA AND/OR VOMITING; Start at 21:30 Acetaminophen (Tylenol Tab) 650 mg Q6H PRN PO PAIN LEVEL 1-3 OR FEVER Last administered on 10/07/16 16:26; Admin Dose 650 MG; Start 10/05/16 at 21:30 Acetaminophen/ Hydrocodone Bitart ([place] (5/325)) 1 tab Q6H PRN PO MODERATE PAIN LEVEL 4-6; Start 10/05/16 at 21:30 Morphine Sulfate (morphine) 2 mg Q4H PRN IV SEVERE PAIN LEVEL 7-10; Start 10/05 at 21:30 Docusate Sodium (Colace) 100 mg Q12H PRN PO CONSTIPATION; Start 10/05/16 at 21: 30 Magnesium Hydroxide (Milk Of Mag) 30 ml DAILY PRN PO CONSTIPATION; Start at 21:30 Sodium Biphosphate/ Sodium Phosphate (Fleet Enema) 133 ml DAILY PRN [place] CONSTIPATION; Start 10/05/16 at 21:30 Famotidine (Pepcid) 20 mg DAILY PO Last administered on 10/08/16 08:33; Admin Dose 20 MG; Start 10/06/16 at 09:00 Lorazepam (Ativan) 0.5 mg Q6H PRN IV ANXIETY Last administered on 10/06/16 15: 12; Admin Dose 0.5 MG; Start 10/05/16 at 21:30 Hydralazine HCl (Apresoline) 10 mg Q6H PRN IV ELEVATED SYSTOLIC BP Last administered on 10/07/16 05:23; Admin Dose 10 MG; Start 10/05/16 at 21:30 Clonidine (Catapres) 0.1 mg Q6H PRN PO ELEVATED SYSTOLIC BP; Start 10/05/16 at 21:30 Nitroglycerin (Nitroglycerin (Sl Tab) 0.4 Mg) 1 tab Q5M PRN SL ANGINA; Start at 21:30 Aspirin 325 mg 325 mg DAILY PO Last administered on 10/08/16 08:31; Admin Dose 325 MG; Start 10/06/16 at 09:00 Diltiazem HCl (Cardizem-D5W 125 Mg/125 ml Drip) 125 ml @ 5 mls/hr TITRATE IV ; Start 10/05/16 at 22:00 Diagnostic Test (Pha) (Accucheck) 1 ea 02 XX ; Start 10/07/16 at 02:00 Zolpidem Tartrate (Ambien) 5 mg HS PRN PO INSOMNIA Last administered on 01:08; Admin Dose 5 MG; Start 10/06/16 at 01:00 Miscellaneous Information 1 ea NOTE XX ; Start 10/06/16 at 01:00 Glucose (Glutose) 15 gm Q15M PRN PO DECREASED GLUCOSE; Start 10/06/16 at 01:00 Glucose (Glutose) 22.5 gm Q15M PRN PO DECREASED GLUCOSE; Start 10/06/16 at 01: 00 Dextrose (D50w Syringe) 25 ml Q15M PRN IV DECREASED GLUCOSE; Start 10/06/16 at 01:00 Dextrose (D50w Syringe) 50 ml Q15M PRN IV DECREASED GLUCOSE; Start 10/06/16 at 01:00 Glucagon (Glucagen) 1 mg Q15M PRN IM DECREASED GLUCOSE; Start 10/06/16 at 01:00 Glucose (Glutose) 15 gm Q15M PRN BUCCAL DECREASED GLUCOSE; Start 10/06/16 at 01 :00 Cyanocobalamin (Vitamin B12) 1,000 mcg DAILY PO Last administered on 10/08/16 08:32; Admin Dose 1,000 MCG; Start 10/06/16 at 09:00 Folic Acid (Folic Acid) 0.8 mg DAILY PO Last administered on 10/08/16 08:29; Admin Dose 0.8 MG; Start 10/06/16 at 09:00 Triamcinolone Acetonide (Kenalog 0.1% Oint) 1 applic BID TOP Last administered on 10/08/16 08:35; Admin Dose 1 APPLIC; Start 10/06/16 at 09:00 Ferrous Sulfate (Slow Fe) 142 mg DAILY PO Last administered on 10/08/16 08:33 ; Admin Dose 142 MG; Start 10/07/16 at 09:00 Magnesium Oxide (Mag-Ox 400) 400 mg DAILY PO Last administered on 10/08/16 08: 29; Admin Dose 400 MG; Start 10/06/16 at 13:00 Clopidogrel Bisulfate (plaVIX) 75 mg DAILY PO Last administered on 10/08/16 08 :33; Admin Dose 75 MG; Start 10/06/16 at 12:00 Atorvastatin Calcium (Lipitor) 40 mg QHS PO Last administered on 10/07/16 20: 09; Admin Dose 40 MG; Start 10/06/16 at 21:00 Benazepril HCl (Lotensin) 40 mg DAILY PO Last administered on 10/08/16 08:33; Admin Dose 40 MG; Start 10/06/16 at 16:30 Nifedipine (Procardia Xl) 60 mg DAILY PO Last administered on 10/08/16 08:36; Admin Dose 60 MG; Start 10/06/16 at 16:08 Zolpidem Tartrate (Ambien) 10 mg QHS PRN PO INSOMNIA; Start 10/06/16 at 16:30 Lorazepam (Ativan) 1 mg HS PO Last administered on 10/07/16 20:09; Admin Dose 1 MG; Start 10/07/16 at 21:00 Insulin Glargine (Lantus) 10 unit HS SC Last administered on 10/07/16 20:14; Admin Dose 10 UNIT; Start 10/07/16 at 21:00 Linagliptin (Tradjenta) 5 mg DAILY PO Last administered on 10/08/16 11:54; Admin Dose 5 MG; Start 10/07/16 at 17:00 Metoprolol Succinate (Toprol Xl) 25 mg BID PO Last administered on 10/08/16 08 :31; Admin Dose 25 MG; Start 10/07/16 at 21:00 JANAE ELDRIDGE Oct 08, 2016 17:57
[2016-10-08] MEDS: INSULIN GLARGINE [LANtus] 3 ML PEN SC SCH (21:00)
[2016-10-08] MEDS: ATORVASTATIN 40 MG TAB PO SCH (21:45)
[2016-10-08] MEDS: LORAZEPAM 0.5 MG TAB PO SCH (21:46)
[2016-10-09] VITALS (22 sets, daily range): BP systolic 122–189; BP diastolic 59–97; PULSE 70–130; RESP 17–21
[2016-10-09] MEDS: ACCU-CHEK XX SCH (02:00)
[2016-10-09 07:37] LABS: ADD SCAN DIFF NO
[2016-10-09 07:42] LABS: BASOPHIL # 0.1 10^3/ul (0.0-0.1); BASOPHILS % 0.8 % (0.0-2.0); EOSINOPHILS # 0.2 10^3/ul (0.0-0.5); EOSINOPHILS % 3.5 % (0.0-7.0); HEMATOCRIT 27.5 % (42.0-52.0); HEMOGLOBIN 8.5 g/dl (14.0-18.0); LYMPHOCYTES # 1.1 10^3/ul (0.8-2.9); LYMPHOCYTES % 18.6 % (15.0-51.0); MEAN CORPUSCULAR HGB CONC 30.9 g/dl (32.0-37.0); MEAN CORPUSCULAR VOLUME 87.3 fl (82.0-101.0); MEAN PLATELET VOLUME 10.5 fl (7.4-10.4); MONOCYTE # 0.5 10^3/ul (0.3-0.9); NEUTROPHIL # 4.1 10^3/ul (1.6-7.5); NEUTROPHILS % 67.8 % (39.0-77.0); PLATELET COUNT 295 10^3/UL (140-415); RED BLOOD COUNT 3.15 10^6/ul (4.70-6.10); RED CELL DISTRIBUTION WIDTH 15.8 % (11.5-14.5)
[2016-10-09 08:03] LABS: POTASSIUM 4.1 mmol/L (3.5-5.1)
[2016-10-09 08:05] LABS: CREATININE 6.22 mg/dl (0.61-1.24)
[2016-10-09 08:06] LABS: CALCIUM 8.6 mg/dl (8.4-10.2)
[2016-10-09] MEDS: LINAGLIPTIN 5 MG TABLET PO SCH (08:44)
[2016-10-09] MEDS: NIFEdipine (XL) 60 MG TAB PO SCH (08:45)
[2016-10-09] MEDS: INSULIN ASPART [NOVOLOG] 3 ML PEN SC SCH ×4 (08:49→21:00)
[2016-10-09] MEDS: MAGNESIUM OXIDE 400 MG TAB PO SCH (09:00)
[2016-10-09] MEDS: TRIAMCINOLONE ACET 0.1% 15 GM OINT TOP SCH ×2 (09:00→21:00)
[2016-10-09] MEDS: FAMOTIDINE 20 MG TAB PO SCH (09:00)
[2016-10-09] MEDS: FERROUS SULFATE (SR) 142 MG TAB PO SCH (09:00)
[2016-10-09] MEDS: CYANOCOBALAMIN 500 MCG TAB PO SCH (09:00)
[2016-10-09] MEDS: METOPROLOL (XL) 25 MG TAB PO SCH ×2 (09:00→22:15)
[2016-10-09] MEDS: BENAZEPRIL 40 MG TAB PO SCH (09:00)
[2016-10-09] MEDS: CLOPIDOGREL 75 MG TAB PO SCH (09:00)
[2016-10-09] MEDS: FOLIC ACID 0.4 MG TAB PO SCH (09:00)
[2016-10-09] MEDS: ASPIRIN (EC) 325 MG TAB PO SCH (09:00)
--- NOTE | 2016-10-09 09:40 | CONS ---
Date/Time of Note Date/Time of Note DATE: 10/09/16 TIME: 09:39 Consult Date/Type/Reason Admit Date/Time Oct 05, 2016 at 21:04 Type of Consultation: neph Ordering Provider: JANAE ELDRIDGE The patient is stable, on hd today. POC reviewed with Dr. Tolbert. OBJECTIVE: HEENT: Head is normocephalic. NECK: Supple. HEART: Regular rate. LUNGS: Show diminished breath sounds at base. ABDOMEN: Soft, nontender to palpation without rebound or guarding. EXTREMITIES: Negative for clubbing, cyanosis, edema. DERMATOLOGIC: No rashes. MUSCULOSKELETAL: No joint effusions. NEUROLOGIC: No change in exam. MEDICATIONS: Reviewed. Objective Vital Signs Date Time Temp Pulse Resp B/P Pulse Ox O2 Delivery O2 Flow Rate FiO2 10/09/16 08:11 97.5 83 17 184/92 100 10/09/16 03:30 2.0 10/07/16 09:33 Nasal Cannula Intake and Output 10/08/16 10/08/16 10/09/16 15:00 23:00 07:00 Intake Total 500 ml 480 ml Balance 500 ml 480 ml Results/Medications Result Diagram: 10/09/16 0712 10/09/16 0712 Results 24 hrs Laboratory Tests Test 10/08/16 11:23 10/08/16 17:43 10/08/16 21:43 10/09/16 07:12 Bedside Glucose 182 195 151 Anion Gap 18 H Basophils # 0.1 Basophils % 0.8 Blood Urea Nitrogen 39 #H Calcium Level 8.6 Carbon Dioxide Level 27 Chloride Level 95 L Creatinine 6.22 H Eosinophils # 0.2 Eosinophils % 3.5 Glucose Level 158 Hematocrit 27.5 L Hemoglobin 8.5 L Lymphocytes # 1.1 Lymphocytes % 18.6 Mean Corpuscular Hemoglobin 27.0 L Mean Corpuscular Hemoglobin Concent 30.9 L Mean Corpuscular Volume 87.3 Mean Platelet Volume 10.5 H Monocytes # 0.5 Monocytes % 9.0 Neutrophils # 4.1 Neutrophils % 67.8 Nucleated Red Blood Cells # 0.0 Nucleated Red Blood Cells % 0.0 Platelet Count 295 Potassium Level 4.1 Red Blood Count 3.15 L Red Cell Distribution Width 15.8 H Sodium Level 136 White Blood Count 6.0 Test 10/09/16 07:59 Bedside Glucose 233 H Medications Current Medications Ondansetron HCl (Zofran Inj) 4 mg Q6H PRN IV NAUSEA AND/OR VOMITING; Start at 21:30 Acetaminophen (Tylenol Tab) 650 mg Q6H PRN PO PAIN LEVEL 1-3 OR FEVER Last administered on 10/07/16 16:26; Admin Dose 650 MG; Start 10/05/16 at 21:30 Acetaminophen/ Hydrocodone Bitart ([place] (5/325)) 1 tab Q6H PRN PO MODERATE PAIN LEVEL 4-6; Start 10/05/16 at 21:30 Morphine Sulfate (morphine) 2 mg Q4H PRN IV SEVERE PAIN LEVEL 7-10; Start 10/05 at 21:30 Docusate Sodium (Colace) 100 mg Q12H PRN PO CONSTIPATION; Start 10/05/16 at 21: 30 Magnesium Hydroxide (Milk Of Mag) 30 ml DAILY PRN PO CONSTIPATION; Start at 21:30 Sodium Biphosphate/ Sodium Phosphate (Fleet Enema) 133 ml DAILY PRN [place] CONSTIPATION; Start 10/05/16 at 21:30 Famotidine (Pepcid) 20 mg DAILY PO Last administered on 10/08/16 08:33; Admin Dose 20 MG; Start 10/06/16 at 09:00 Lorazepam (Ativan) 0.5 mg Q6H PRN IV ANXIETY Last administered on 10/06/16 15: 12; Admin Dose 0.5 MG; Start 10/05/16 at 21:30 Hydralazine HCl (Apresoline) 10 mg Q6H PRN IV ELEVATED SYSTOLIC BP Last administered on 10/07/16 05:23; Admin Dose 10 MG; Start 10/05/16 at 21:30 Clonidine (Catapres) 0.1 mg Q6H PRN PO ELEVATED SYSTOLIC BP; Start 10/05/16 at 21:30 Nitroglycerin (Nitroglycerin (Sl Tab) 0.4 Mg) 1 tab Q5M PRN SL ANGINA; Start at 21:30 Aspirin 325 mg 325 mg DAILY PO Last administered on 10/08/16 08:31; Admin Dose 325 MG; Start 10/06/16 at 09:00 Diltiazem HCl (Cardizem-D5W 125 Mg/125 ml Drip) 125 ml @ 5 mls/hr TITRATE IV ; Start 10/05/16 at 22:00 Diagnostic Test (Pha) (Accucheck) 1 ea 02 XX ; Start 10/07/16 at 02:00 Zolpidem Tartrate (Ambien) 5 mg HS PRN PO INSOMNIA Last administered on 01:08; Admin Dose 5 MG; Start 10/06/16 at 01:00 Miscellaneous Information 1 ea NOTE XX ; Start 10/06/16 at 01:00 Glucose (Glutose) 15 gm Q15M PRN PO DECREASED GLUCOSE; Start 10/06/16 at 01:00 Glucose (Glutose) 22.5 gm Q15M PRN PO DECREASED GLUCOSE; Start 10/06/16 at 01: 00 Dextrose (D50w Syringe) 25 ml Q15M PRN IV DECREASED GLUCOSE; Start 10/06/16 at 01:00 Dextrose (D50w Syringe) 50 ml Q15M PRN IV DECREASED GLUCOSE; Start 10/06/16 at 01:00 Glucagon (Glucagen) 1 mg Q15M PRN IM DECREASED GLUCOSE; Start 10/06/16 at 01:00 Glucose (Glutose) 15 gm Q15M PRN BUCCAL DECREASED GLUCOSE; Start 10/06/16 at 01 :00 Cyanocobalamin (Vitamin B12) 1,000 mcg DAILY PO Last administered on 10/08/16 08:32; Admin Dose 1,000 MCG; Start 10/06/16 at 09:00 Folic Acid (Folic Acid) 0.8 mg DAILY PO Last administered on 10/08/16 08:29; Admin Dose 0.8 MG; Start 10/06/16 at 09:00 Triamcinolone Acetonide (Kenalog 0.1% Oint) 1 applic BID TOP Last administered on 10/08/16 08:35; Admin Dose 1 APPLIC; Start 10/06/16 at 09:00 Ferrous Sulfate (Slow Fe) 142 mg DAILY PO Last administered on 10/08/16 08:33 ; Admin Dose 142 MG; Start 10/07/16 at 09:00 Magnesium Oxide (Mag-Ox 400) 400 mg DAILY PO Last administered on 10/08/16 08: 29; Admin Dose 400 MG; Start 10/06/16 at 13:00 Clopidogrel Bisulfate (plaVIX) 75 mg DAILY PO Last administered on 10/08/16 08 :33; Admin Dose 75 MG; Start 10/06/16 at 12:00 Atorvastatin Calcium (Lipitor) 40 mg QHS PO Last administered on 10/08/16 21: 45; Admin Dose 40 MG; Start 10/06/16 at 21:00 Benazepril HCl (Lotensin) 40 mg DAILY PO Last administered on 10/08/16 08:33; Admin Dose 40 MG; Start 10/06/16 at 16:30 Nifedipine (Procardia Xl) 60 mg DAILY PO Last administered on 10/09/16 08:45; Admin Dose 60 MG; Start 10/06/16 at 16:08 Zolpidem Tartrate (Ambien) 10 mg QHS PRN PO INSOMNIA; Start 10/06/16 at 16:30 Lorazepam (Ativan) 1 mg HS PO Last administered on 10/08/16 21:46; Admin Dose 1 MG; Start 10/07/16 at 21:00 Insulin Glargine (Lantus) 10 unit HS SC Last administered on 10/07/16 20:14; Admin Dose 10 UNIT; Start 10/07/16 at 21:00 Linagliptin (Tradjenta) 5 mg DAILY PO Last administered on 10/09/16 08:44; Admin Dose 5 MG; Start 10/07/16 at 17:00 Metoprolol Succinate (Toprol Xl) 25 mg BID PO Last administered on 10/08/16 21 :47; Admin Dose 25 MG; Start 10/07/16 at 21:00 Assessment/Plan Chief Complaint/Hosp Course ASSESSMENT AND PLAN: 1. End-stage renal disease. The patient is on dialysis Monday, Monday, and Monday. 2. Anemia of chronic kidney disease. Hemoglobin level stable, continue to monitor, give Epogen as needed. 3. Mineral bone disorder. Continue to monitor calcium and phosphorus levels. Continue phosphate binders as needed. 4. Hypertension. Continue ultrafiltration dialysis. Continue current blood pressure regimen. 5. Sepsis secondary to pneumonia. Continue current antibiotic regimen. The patient is clinically improving. Cultures have been reviewed. 6. Atrial fibrillation, rate controlled. Continue medical management. 7. Elevated troponin, possible non-STEMI type 1 versus type 2. Continue medical management and follow up with cardiology. 8. Diabetes. Continue Accu-Cheks with insulin sliding scale. 9. Acute hypoxemic respiratory failure secondary to pneumonia, volume overload. Continue current medical management. Continue antibiotics, nebulizers, supplemental oxygen, and ultrafiltration with dialysis. Problems: DELGADO GRAFF MD Oct 09, 2016 09:40
[2016-10-09] MEDS ORDERED: LORA-441 PO (10:15)
--- NOTE | 2016-10-09 10:17 | PDOCDIS ---
Discharge Instructions CONDITION Patient Condition: Good HOME CARE INSTRUCTIONS: Special Diet: Carb controlled, Renal ACTIVITY: Activity Restrictions: No Restrictions FOLLOW UP/APPOINTMENTS Appointments F/U WITH YOUR PCP IN 1-2 WEEKS JANAE ELDRIDGE Oct 09, 2016 10:17
[2016-10-09] MEDS ORDERED: HEPARIN 1000 UNITS/ML 10 ML INJ CATHETER ONE (12:30)
--- NOTE | 2016-10-09 13:32 | PN ---
Date/Time of Note Date/Time of Note DATE: 10/09/16 TIME: 13:27 Assessment/Plan VTE Prophylaxis VTE Prophylaxis Intervention: LMWH Lines/Catheters [facility] Type [facility]from [facility] Peripheral IV Urinary Cath still in place: No Assessment/Plan Chief Complaint/Hosp Course 1. Acute respiratory distress secondary to volume overload from underlying end- stage renal disease and CHF-improved Nephrology consultation appreciated HD today Pneumonia is unlikely and the patient has been afebrile overnight and today hence will DC Levaquin 2. Atrial fibrillation with rapid ventricular response-has converted back to sinus Continue metoprolol p.o. Cardiology consultation appreciated 3. Non-STEMI Monitor troponins, currently stable, elevation likely secondary to tachyarrhythmia Patient did have recent PCI continue aspirin and Plavix Cardiology consultation appreciated 4. History of type 2 diabetes A1c at 6.3, continue NovoLog sliding scale 5. Anemia secondary end-stage renal disease Monitor 6. History of coronary artery disease Continue home meds 7. Hypertensive urgency-stable 8. Systolic CHF Echo shows an EF of 25% and was recently at 45% at [facility], pt and family concerned, follow up with Cards recs and as to whether or not pt requires another Cath Prophylaxis: Lovenox Problems: Subjective 24 Hr Interval Summary Constitutional: no complaints Exam/Review of Systems Vital Signs Vitals Vital Signs Date Time Temp Pulse Resp B/P Pulse Ox O2 Delivery O2 Flow Rate FiO2 10/09/16 12:09 81 10/09/16 11:20 97.9 17 131/62 95 10/09/16 08:05 2.0 10/07/16 09:33 Nasal Cannula Intake and Output 10/08/16 10/08/16 10/09/16 15:00 23:00 07:00 Intake Total 500 ml 480 ml Balance 500 ml 480 ml Exam Constitutional: alert, oriented Respiratory: clear to auscultation Cardiovascular: regular rate and rhythm Gastrointestinal: soft, No distended Musculoskeletal: No nl extremities to inspection Results Result Diagram: 10/09/1671110/09/1612 Results 24 hrs Laboratory Tests Test 10/08/16 17:43 10/08/16 21:43 10/09/16 07:12 10/09/16 07:59 Bedside Glucose 195 151 233 H Anion Gap 18 H Basophils # 0.1 Basophils % 0.8 Blood Urea Nitrogen 39 #H Calcium Level 8.6 Carbon Dioxide Level 27 Chloride Level 95 L Creatinine 6.22 H Eosinophils # 0.2 Eosinophils % 3.5 Glucose Level 158 Hematocrit 27.5 L Hemoglobin 8.5 L Lymphocytes # 1.1 Lymphocytes % 18.6 Mean Corpuscular Hemoglobin 27.0 L Mean Corpuscular Hemoglobin Concent 30.9 L Mean Corpuscular Volume 87.3 Mean Platelet Volume 10.5 H Monocytes # 0.5 Monocytes % 9.0 Neutrophils # 4.1 Neutrophils % 67.8 Nucleated Red Blood Cells # 0.0 Nucleated Red Blood Cells % 0.0 Platelet Count 295 Potassium Level 4.1 Red Blood Count 3.15 L Red Cell Distribution Width 15.8 H Sodium Level 136 White Blood Count 6.0 Test 10/09/16 12:31 Bedside Glucose 239 H Medications Medications Current Medications Ondansetron HCl (Zofran Inj) 4 mg Q6H PRN IV NAUSEA AND/OR VOMITING; Start at 21:30 Acetaminophen (Tylenol Tab) 650 mg Q6H PRN PO PAIN LEVEL 1-3 OR FEVER Last administered on 10/07/16 16:26; Admin Dose 650 MG; Start 10/05/16 at 21:30 Acetaminophen/ Hydrocodone Bitart ([place] (5/325)) 1 tab Q6H PRN PO MODERATE PAIN LEVEL 4-6; Start 10/05/16 at 21:30 Morphine Sulfate (morphine) 2 mg Q4H PRN IV SEVERE PAIN LEVEL 7-10; Start 10/05 at 21:30 Docusate Sodium (Colace) 100 mg Q12H PRN PO CONSTIPATION; Start 10/05/16 at 21: 30 Magnesium Hydroxide (Milk Of Mag) 30 ml DAILY PRN PO CONSTIPATION; Start at 21:30 Sodium Biphosphate/ Sodium Phosphate (Fleet Enema) 133 ml DAILY PRN [place] CONSTIPATION; Start 10/05/16 at 21:30 Famotidine (Pepcid) 20 mg DAILY PO Last administered on 10/08/16 08:33; Admin Dose 20 MG; Start 10/06/16 at 09:00 Lorazepam (Ativan) 0.5 mg Q6H PRN IV ANXIETY Last administered on 10/06/16 15: 12; Admin Dose 0.5 MG; Start 10/05/16 at 21:30 Hydralazine HCl (Apresoline) 10 mg Q6H PRN IV ELEVATED SYSTOLIC BP Last administered on 10/07/16 05:23; Admin Dose 10 MG; Start 10/05/16 at 21:30 Clonidine (Catapres) 0.1 mg Q6H PRN PO ELEVATED SYSTOLIC BP; Start 10/05/16 at 21:30 Nitroglycerin (Nitroglycerin (Sl Tab) 0.4 Mg) 1 tab Q5M PRN SL ANGINA; Start at 21:30 Aspirin 325 mg 325 mg DAILY PO Last administered on 10/08/16 08:31; Admin Dose 325 MG; Start 10/06/16 at 09:00 Diltiazem HCl (Cardizem-D5W 125 Mg/125 ml Drip) 125 ml @ 5 mls/hr TITRATE IV ; Start 10/05/16 at 22:00 Diagnostic Test (Pha) (Accucheck) 1 ea 02 XX ; Start 10/07/16 at 02:00 Zolpidem Tartrate (Ambien) 5 mg HS PRN PO INSOMNIA Last administered on 01:08; Admin Dose 5 MG; Start 10/06/16 at 01:00 Miscellaneous Information 1 ea NOTE XX ; Start 10/06/16 at 01:00 Glucose (Glutose) 15 gm Q15M PRN PO DECREASED GLUCOSE; Start 10/06/16 at 01:00 Glucose (Glutose) 22.5 gm Q15M PRN PO DECREASED GLUCOSE; Start 10/06/16 at 01: 00 Dextrose (D50w Syringe) 25 ml Q15M PRN IV DECREASED GLUCOSE; Start 10/06/16 at 01:00 Dextrose (D50w Syringe) 50 ml Q15M PRN IV DECREASED GLUCOSE; Start 10/06/16 at 01:00 Glucagon (Glucagen) 1 mg Q15M PRN IM DECREASED GLUCOSE; Start 10/06/16 at 01:00 Glucose (Glutose) 15 gm Q15M PRN BUCCAL DECREASED GLUCOSE; Start 10/06/16 at 01 :00 Cyanocobalamin (Vitamin B12) 1,000 mcg DAILY PO Last administered on 10/08/16 08:32; Admin Dose 1,000 MCG; Start 10/06/16 at 09:00 Folic Acid (Folic Acid) 0.8 mg DAILY PO Last administered on 10/08/16 08:29; Admin Dose 0.8 MG; Start 10/06/16 at 09:00 Triamcinolone Acetonide (Kenalog 0.1% Oint) 1 applic BID TOP Last administered on 10/08/16 08:35; Admin Dose 1 APPLIC; Start 10/06/16 at 09:00 Ferrous Sulfate (Slow Fe) 142 mg DAILY PO Last administered on 10/08/16 08:33 ; Admin Dose 142 MG; Start 10/07/16 at 09:00 Magnesium Oxide (Mag-Ox 400) 400 mg DAILY PO Last administered on 10/08/16 08: 29; Admin Dose 400 MG; Start 10/06/16 at 13:00 Clopidogrel Bisulfate (plaVIX) 75 mg DAILY PO Last administered on 10/08/16 08 :33; Admin Dose 75 MG; Start 10/06/16 at 12:00 Atorvastatin Calcium (Lipitor) 40 mg QHS PO Last administered on 10/08/16 21: 45; Admin Dose 40 MG; Start 10/06/16 at 21:00 Benazepril HCl (Lotensin) 40 mg DAILY PO Last administered on 10/08/16 08:33; Admin Dose 40 MG; Start 10/06/16 at 16:30 Nifedipine (Procardia Xl) 60 mg DAILY PO Last administered on 10/09/16 08:45; Admin Dose 60 MG; Start 10/06/16 at 16:08 Zolpidem Tartrate (Ambien) 10 mg QHS PRN PO INSOMNIA; Start 10/06/16 at 16:30 Lorazepam (Ativan) 1 mg HS PO Last administered on 10/08/16 21:46; Admin Dose 1 MG; Start 10/07/16 at 21:00 Insulin Glargine (Lantus) 10 unit HS SC Last administered on 10/07/16 20:14; Admin Dose 10 UNIT; Start 10/07/16 at 21:00 Linagliptin (Tradjenta) 5 mg DAILY PO Last administered on 10/09/16 08:44; Admin Dose 5 MG; Start 10/07/16 at 17:00 Metoprolol Succinate (Toprol Xl) 25 mg BID PO Last administered on 10/08/16 21 :47; Admin Dose 25 MG; Start 10/07/16 at 21:00 JANAE ELDRIDGE 19, 2017 13:32
--- NOTE | 2016-10-09 18:08 | CONS ---
Date/Time of Note Date/Time of Note DATE: 10/09/16 TIME: 18:06 Assessment/Plan Assessment/Plan Additional Assessment/Plan 1. Atrial fibrillation with rapid ventricular response-now rate controlled- RATE BETTER NOW - con't to follow 2. Abnormal electrocardiogram with inferolateral ST depressions- a. fib as noted. 3. Positive troponin, assess significance- no CP- no intervention planned today - RECORDS from OSH available, DR. Umana will review 4. Cardiomyopathy, decreased left ventricular ejection fraction last approximately 45% by outside hospital paperwork at [facility] 09/09. Now approx 25% by echo here - outpt ICD 5. History of PTCA and stent placement at [facility] recently.-per notes had PCI at [facility](08/2016)after being thought to be poor surgical candidate but cath report not sent from [facility]. Had originally transferred from [facility] where was cathed and found to have 3VD after suffering ME. 6. Renal failure- avoid nephrotoxic meds now. 7. Hypertension. 8. Shortness of breath. 9. Generalized weakness. 10. Diabetes mellitus. 11. Anemia. 12.CHF-systolic acute on chronic- better fluid status now. Consultation Date/Type/Reason Admit Date/Time Oct 05, 2016 at 21:04 Type of Consultation: neph Referring Provider: JANAE ELDRIDGE 24 HR Interval Summary Free Text/Dictation NO acute change - pt feels tired today - RECORDS from OSH available, DR. Umana will review ROS: No fever, no chills, no nausea, no vomiting, no diarrhea/constipation No recent weight changes No chest pain, no PND, no orthopnea No dizziness, blurred vision No thirst, no heat or cold intolerance fatigue + Exam/Review of Systems Vital Signs Vitals Vital Signs Date Time Temp Pulse Resp B/P Pulse Ox O2 Delivery O2 Flow Rate FiO2 10/09/16 17:33 2.0 10/09/16 16:41 74 10/09/16 15:52 98.3 17 146/74 100 10/07/16 09:33 Nasal Cannula Intake and Output 10/08/16 10/08/16 10/09/16 15:00 23:00 07:00 Intake Total 500 ml 480 ml Balance 500 ml 480 ml Exam General: WN/WD/NAD, AOx 3 HEENT: Unicetric/atraumatic/EOMI (follow commands) NECK: JVD elevated, no thyromegaly Lymph: no lymphadenopathy HEART: IRregular with no S3, II/ systolic murmur at apex LUNGS: Coarse sounds ABD: soft, NT, ND, +BS : Intact Neuro: non focal SKIN: chronic changes EXT: trace edema Results Result Diagram: 10/09/16 0712 10/09/16 0712 Results 24 hrs Laboratory Tests Test 10/08/16 21:43 10/09/16 07:12 10/09/16 07:59 10/09/16 12:31 Bedside Glucose 151 233 H 239 H Anion Gap 18 H Basophils # 0.1 Basophils % 0.8 Blood Urea Nitrogen 39 #H Calcium Level 8.6 Carbon Dioxide Level 27 Chloride Level 95 L Creatinine 6.22 H Eosinophils # 0.2 Eosinophils % 3.5 Glucose Level 158 Hematocrit 27.5 L Hemoglobin 8.5 L Lymphocytes # 1.1 Lymphocytes % 18.6 Mean Corpuscular Hemoglobin 27.0 L Mean Corpuscular Hemoglobin Concent 30.9 L Mean Corpuscular Volume 87.3 Mean Platelet Volume 10.5 H Monocytes # 0.5 Monocytes % 9.0 Neutrophils # 4.1 Neutrophils % 67.8 Nucleated Red Blood Cells # 0.0 Nucleated Red Blood Cells % 0.0 Platelet Count 295 Potassium Level 4.1 Red Blood Count 3.15 L Red Cell Distribution Width 15.8 H Sodium Level 136 White Blood Count 6.0 Test 10/09/16 17:46 Bedside Glucose 147 Medications Medications Current Medications Ondansetron HCl (Zofran Inj) 4 mg Q6H PRN IV NAUSEA AND/OR VOMITING; Start at 21:30 Acetaminophen (Tylenol Tab) 650 mg Q6H PRN PO PAIN LEVEL 1-3 OR FEVER Last administered on 10/07/16t 16:26; Admin Dose 650 MG; Start 10/05/16 at 21:30 Acetaminophen/ Hydrocodone Bitart ([place] (5/325)) 1 tab Q6H PRN PO MODERATE PAIN LEVEL 4-6; Start 10/05/16 at 21:30 Morphine Sulfate (morphine) 2 mg Q4H PRN IV SEVERE PAIN LEVEL 7-10; Start 10/05 at 21:30 Docusate Sodium (Colace) 100 mg Q12H PRN PO CONSTIPATION; Start 10/05/16 at 21: 30 Magnesium Hydroxide (Milk Of Mag) 30 ml DAILY PRN PO CONSTIPATION; Start at 21:30 Sodium Biphosphate/ Sodium Phosphate (Fleet Enema) 133 ml DAILY PRN DE CONSTIPATION; Start 10/05/16 at 21:30 Famotidine (Pepcid) 20 mg DAILY PO Last administered on 10/08/16 08:33; Admin Dose 20 MG; Start 10/06/16 at 09:00 Lorazepam (Ativan) 0.5 mg Q6H PRN IV ANXIETY Last administered on 10/06/16 15: 12; Admin Dose 0.5 MG; Start 10/05/16 at 21:30 Hydralazine HCl (Apresoline) 10 mg Q6H PRN IV ELEVATED SYSTOLIC BP Last administered on 10/07/16 05:23; Admin Dose 10 MG; Start 10/05/16 at 21:30 Clonidine (Catapres) 0.1 mg Q6H PRN PO ELEVATED SYSTOLIC BP; Start 10/05/16 at 21:30 Nitroglycerin (Nitroglycerin (Sl Tab) 0.4 Mg) 1 tab Q5M PRN SL ANGINA; Start at 21:30 Aspirin 325 mg 325 mg DAILY PO Last administered on 10/08/16 08:31; Admin Dose 325 MG; Start 10/06/16 at 09:00 Diltiazem HCl (Cardizem-D5W 125 Mg/125 ml Drip) 125 ml @ 5 mls/hr TITRATE IV ; Start 10/05/16 at 22:00 Diagnostic Test (Pha) (Accucheck) 1 ea 02 XX ; Start 10/07/16 at 02:00 Zolpidem Tartrate (Ambien) 5 mg HS PRN PO INSOMNIA Last administered on 01:08; Admin Dose 5 MG; Start 10/06/16 at 01:00 Miscellaneous Information 1 ea NOTE XX ; Start 10/06/16 at 01:00 Glucose (Glutose) 15 gm Q15M PRN PO DECREASED GLUCOSE; Start 10/06/16 at 01:00 Glucose (Glutose) 22.5 gm Q15M PRN PO DECREASED GLUCOSE; Start 10/06/16 at 01: 00 Dextrose (D50w Syringe) 25 ml Q15M PRN IV DECREASED GLUCOSE; Start 10/06/16 at 01:00 Dextrose (D50w Syringe) 50 ml Q15M PRN IV DECREASED GLUCOSE; Start 10/06/16 at 01:00 Glucagon (Glucagen) 1 mg Q15M PRN IM DECREASED GLUCOSE; Start 10/06/16 at 01:00 Glucose (Glutose) 15 gm Q15M PRN BUCCAL DECREASED GLUCOSE; Start 10/06/16 at 01 :00 Cyanocobalamin (Vitamin B12) 1,000 mcg DAILY PO Last administered on 10/08/16 08:32; Admin Dose 1,000 MCG; Start 10/06/16 at 09:00 Folic Acid (Folic Acid) 0.8 mg DAILY PO Last administered on 10/08/16 08:29; Admin Dose 0.8 MG; Start 10/06/16 at 09:00 Triamcinolone Acetonide (Kenalog 0.1% Oint) 1 applic BID TOP Last administered on 10/08/16 08:35; Admin Dose 1 APPLIC; Start 10/06/16 at 09:00 Ferrous Sulfate (Slow Fe) 142 mg DAILY PO Last administered on 10/08/16 08:33 ; Admin Dose 142 MG; Start 10/07/16 at 09:00 Magnesium Oxide (Mag-Ox 400) 400 mg DAILY PO Last administered on 10/08/16 08: 29; Admin Dose 400 MG; Start 10/06/16 at 13:00 Clopidogrel Bisulfate (plaVIX) 75 mg DAILY PO Last administered on 10/08/16 08 :33; Admin Dose 75 MG; Start 10/06/16 at 12:00 Atorvastatin Calcium (Lipitor) 40 mg QHS PO Last administered on 10/08/16 21: 45; Admin Dose 40 MG; Start 10/06/16 at 21:00 Benazepril HCl (Lotensin) 40 mg DAILY PO Last administered on 10/08/16 08:33; Admin Dose 40 MG; Start 10/06/16 at 16:30 Nifedipine (Procardia Xl) 60 mg DAILY PO Last administered on 10/09/16 08:45; Admin Dose 60 MG; Start 10/06/16 at 16:08 Zolpidem Tartrate (Ambien) 10 mg QHS PRN PO INSOMNIA; Start 10/06/16 at 16:30 Lorazepam (Ativan) 1 mg HS PO Last administered on 10/08/16 21:46; Admin Dose 1 MG; Start 10/07/16 at 21:00 Insulin Glargine (Lantus) 10 unit HS SC Last administered on 10/07/16 20:14; Admin Dose 10 UNIT; Start 10/07/16 at 21:00 Linagliptin (Tradjenta) 5 mg DAILY PO Last administered on 10/09/16 08:44; Admin Dose 5 MG; Start 10/07/16 at 17:00 Metoprolol Succinate (Toprol Xl) 25 mg BID PO Last administered on 10/08/16 21 :47; Admin Dose 25 MG; Start 10/07/16 at 21:00 BALAJI YI MD Oct 09, 2016 18:08
[2016-10-09] MEDS: INSULIN GLARGINE [LANtus] 3 ML PEN SC SCH (21:00)
[2016-10-09] MEDS: ATORVASTATIN 40 MG TAB PO SCH (22:15)
[2016-10-09] MEDS: LORAZEPAM 0.5 MG TAB PO SCH (22:15)
[2016-10-09] MEDS: ACETAMINOPHEN 325 MG TAB PO PRN (22:22)
[2016-10-09] MEDS ORDERED: LABETALOL HCL 20MG INJ IV ONE ×2 (23:00)
[2016-10-10] VITALS (18 sets, daily range): BP systolic 142–177; BP diastolic 65–99; PULSE 76–112; RESP 18–20
[2016-10-10] MEDS: ACCU-CHEK XX SCH (00:18)
--- NOTE | 2016-10-10 02:30 | RADRPT ---
PROCEDURE: XR Chest. CLINICAL INDICATION: Lung infection. TECHNIQUE: Single frontal view of the chest was obtained COMPARISON: 10/08/2016. FINDINGS: Right central venous dialysis catheter in place with tip in right atrium. Cardiomegaly and atherosclerotic calcifications in the thoracic aorta. Increased patchy bilateral air space disease with pulmonary vascular congestion and stable right ple ural effusion with increased left pleural effusion. Right lung air space disease is substantially increased when compared to the left lung air space dis ease. Findings may represent a right lung pneumonia in setting of sepsis. There is no pleural effusion or pneumothorax. IMPRESSION: 1. Increased moderate to severe failure versus volume overload. 2. Differential considerations include right lung pneumonia. RPTAT: [facility] Physician Dee Date Time Electronically viewed and signed by Physician Dee on 10/10/2016 02:30 RS/
[2016-10-10] MEDS: ASPIRIN (EC) 325 MG TAB PO SCH (08:31)
[2016-10-10] MEDS: FOLIC ACID 0.4 MG TAB PO SCH (08:33)
[2016-10-10] MEDS: MAGNESIUM OXIDE 400 MG TAB PO SCH (08:33)
[2016-10-10] MEDS: FAMOTIDINE 20 MG TAB PO SCH (08:34)
[2016-10-10] MEDS: CLOPIDOGREL 75 MG TAB PO SCH (08:34)
[2016-10-10] MEDS: FERROUS SULFATE (SR) 142 MG TAB PO SCH (08:35)
[2016-10-10] MEDS: LINAGLIPTIN 5 MG TABLET PO SCH (08:35)
[2016-10-10] MEDS: CYANOCOBALAMIN 500 MCG TAB PO SCH (08:35)
[2016-10-10] MEDS: INSULIN ASPART [NOVOLOG] 3 ML PEN SC SCH ×4 (08:45→21:00)
[2016-10-10] MEDS: TRIAMCINOLONE ACET 0.1% 15 GM OINT TOP SCH ×2 (09:00→21:30)
--- NOTE | 2016-10-10 11:03 | CONS ---
Date/Time of Note Date/Time of Note DATE: 10/10/16 TIME: 11:00 Assessment/Plan Assessment/Plan Chief Complaint/Hosp Course IMPRESSION: 1. Atrial fibrillation with rapid ventricular response-now rate controlled 2. Abnormal electrocardiogram with inferolateral ST depressions. 3. Positive troponin, assess significance. 4. Cardiomyopathy, decreased left ventricular ejection fraction last approximately 45% by outside hospital paperwork at [facility] 09/09. Now approx 25% by echo here 5. History of PTCA and stent placement at [facility] recently.-per notes had PCI at [facility](08/2016)after being thought to be poor surgical candidate but cath report not sent from [facility]. Had originally transferred from [facility] where was cathed and found to have 3VD after suffering [place]. 6. Renal failure. 7. Hypertension. 8. Shortness of breath. 9. Generalized weakness. 10. Diabetes mellitus. 11. Anemia. 12.CHF-systolic acute on chronic Recc: -Tele -Continue BB/ACEI/CCB -Continue asa/plavix/statin -Still await cath report from [facility] to see what was stented with possible need for repeat LHC given now worsened LVEF from that at [facility] just last month. -HD for volume removal. -SQ heparin Problems: Consultation Date/Type/Reason Admit Date/Time Oct 05, 2016 at 21:04 Initial Consult Date 10/06/2016 Type of Consultation: Cardiology Reason for Consultation CHF/cardiomyopathy Referring Provider: JANAE ELDRIDGE Exam/Review of Systems Vital Signs Vitals Vital Signs Date Time Temp Pulse Resp B/P Pulse Ox O2 Delivery O2 Flow Rate FiO2 10/10/16 10:53 98.2 78 18 159/77 97 10/09/16 22:10 Room Air 10/09/16 17:33 2.0 Intake and Output 10/09/16 10/09/16 10/10/16 15:00 23:00 07:00 Intake Total 950 ml 240 ml Output Total 1500 ml Balance -550 ml 240 ml Exam Review of Systems: CONSTITUTIONAL: No fevers, chills. PULMONARY: No sob CARDIOVASCULAR: No chest pain/palpitations GASTROINTESTINAL: No nausea/vomiting. GENITOURINARY: No hematuria/dysuria. MUSCULOSKELETAL: No myagias/arthalgias. PSYCHIATRIC: The patient denies depression. NEUROLOGIC: No weakness Constitutional: alert Psych: no complaints Head: normocephalic ENMT: mucosa pink and moist Neck: jvd (9 cm water), supple Respiratory: diminished breath sounds (at bases/B) Cardiovascular: regular rate and rhythm Gastrointestinal: non-tender, soft Musculoskeletal: muscle tone (normal) Extremities: edema Neurological: other (No focal deficits/more alert) Results Result Diagram: 10/09/16 0712 10/09/16 0712 Results 24 hrs Laboratory Tests Test 10/09/16 12:31 10/09/16 17:46 10/09/16 22:15 10/10/16 08:14 Bedside Glucose 239 H 147 147 186 Medications Medications Current Medications Ondansetron HCl (Zofran Inj) 4 mg Q6H PRN IV NAUSEA AND/OR VOMITING; Start at 21:30 Acetaminophen (Tylenol Tab) 650 mg Q6H PRN PO PAIN LEVEL 1-3 OR FEVER Last administered on 10/09/16 22:22; Admin Dose 650 MG; Start 10/05/16 at 21:30 Acetaminophen/ Hydrocodone Bitart ([place] (5/325)) 1 tab Q6H PRN PO MODERATE PAIN LEVEL 4-6; Start 10/05/16 at 21:30 Morphine Sulfate (morphine) 2 mg Q4H PRN IV SEVERE PAIN LEVEL 7-10; Start 10/05 at 21:30 Docusate Sodium (Colace) 100 mg Q12H PRN PO CONSTIPATION; Start 10/05/16 at 21: 30 Magnesium Hydroxide (Milk Of Mag) 30 ml DAILY PRN PO CONSTIPATION; Start at 21:30 Sodium Biphosphate/ Sodium Phosphate (Fleet Enema) 133 ml DAILY PRN IN CONSTIPATION; Start 10/05/16 at 21:30 Famotidine (Pepcid) 20 mg DAILY PO Last administered on 10/10/16 08:34; Admin Dose 20 MG; Start 10/06/16 at 09:00 Lorazepam (Ativan) 0.5 mg Q6H PRN IV ANXIETY Last administered on 10/06/16 15: 12; Admin Dose 0.5 MG; Start 10/05/16 at 21:30 Hydralazine HCl (Apresoline) 10 mg Q6H PRN IV ELEVATED SYSTOLIC BP Last administered on 10/07/16 05:23; Admin Dose 10 MG; Start 10/05/16 at 21:30 Clonidine (Catapres) 0.1 mg Q6H PRN PO ELEVATED SYSTOLIC BP; Start 10/05/16 at 21:30 Nitroglycerin (Nitroglycerin (Sl Tab) 0.4 Mg) 1 tab Q5M PRN SL ANGINA; Start at 21:30 Aspirin 325 mg 325 mg DAILY PO Last administered on 10/10/16 08:31; Admin Dose 325 MG; Start 10/06/16 at 09:00 Diltiazem HCl (Cardizem-D5W 125 Mg/125 ml Drip) 125 ml @ 5 mls/hr TITRATE IV ; Start 10/05/16 at 22:00 Diagnostic Test (Pha) (Accucheck) 1 ea 02 XX ; Start 10/07/16 at 02:00 Zolpidem Tartrate (Ambien) 5 mg HS PRN PO INSOMNIA Last administered on 01:08; Admin Dose 5 MG; Start 10/06/16 at 01:00 Miscellaneous Information 1 ea NOTE XX ; Start 10/06/16 at 01:00 Glucose (Glutose) 15 gm Q15M PRN PO DECREASED GLUCOSE; Start 10/06/16 at 01:00 Glucose (Glutose) 22.5 gm Q15M PRN PO DECREASED GLUCOSE; Start 10/06/16 at 01: 00 Dextrose (D50w Syringe) 25 ml Q15M PRN IV DECREASED GLUCOSE; Start 10/06/16 at 01:00 Dextrose (D50w Syringe) 50 ml Q15M PRN IV DECREASED GLUCOSE; Start 10/06/16 at 01:00 Glucagon (Glucagen) 1 mg Q15M PRN IM DECREASED GLUCOSE; Start 10/06/16 at 01:00 Glucose (Glutose) 15 gm Q15M PRN BUCCAL DECREASED GLUCOSE; Start 10/06/16 at 01 :00 Cyanocobalamin (Vitamin B12) 1,000 mcg DAILY PO Last administered on 10/10/16 08:35; Admin Dose 1,000 MCG; Start 10/06/16 at 09:00 Folic Acid (Folic Acid) 0.8 mg DAILY PO Last administered on 10/10/16 08:33; Admin Dose 0.8 MG; Start 10/06/16 at 09:00 Triamcinolone Acetonide (Kenalog 0.1% Oint) 1 applic BID TOP Last administered on 10/09/16 09:00; Admin Dose 1 APPLIC; Start 10/06/16 at 09:00 Ferrous Sulfate (Slow Fe) 142 mg DAILY PO Last administered on 10/10/16 08:35 ; Admin Dose 142 MG; Start 10/07/16 at 09:00 Magnesium Oxide (Mag-Ox 400) 400 mg DAILY PO Last administered on 10/10/16 08: 33; Admin Dose 400 MG; Start 10/06/16 at 13:00 Clopidogrel Bisulfate (plaVIX) 75 mg DAILY PO Last administered on 10/10/16 08 :34; Admin Dose 75 MG; Start 10/06/16 at 12:00 Atorvastatin Calcium (Lipitor) 40 mg QHS PO Last administered on 10/08/16 21: 45; Admin Dose 40 MG; Start 10/06/16 at 21:00 Benazepril HCl (Lotensin) 40 mg DAILY PO Last administered on 10/08/16 08:33; Admin Dose 40 MG; Start 10/06/16 at 16:30 Nifedipine (Procardia Xl) 60 mg DAILY PO Last administered on 10/09/16 08:45; Admin Dose 60 MG; Start 10/06/16 at 16:08 Zolpidem Tartrate (Ambien) 10 mg QHS PRN PO INSOMNIA; Start 10/06/16 at 16:30 Lorazepam (Ativan) 1 mg HS PO Last administered on 10/08/16 21:46; Admin Dose 1 MG; Start 10/07/16 at 21:00 Insulin Glargine (Lantus) 10 unit HS SC Last administered on 10/07/16 20:14; Admin Dose 10 UNIT; Start 10/07/16 at 21:00 Linagliptin (Tradjenta) 5 mg DAILY PO Last administered on 10/10/16 08:35; Admin Dose 5 MG; Start 10/07/16 at 17:00 Metoprolol Succinate (Toprol Xl) 25 mg BID PO Last administered on 10/08/16 21 :47; Admin Dose 25 MG; Start 10/07/16 at 21:00 AIYANA LANG 20, 2017 11:03
--- NOTE | 2016-10-10 11:44 | PN ---
DATE: 10/10/2016 SUBJECTIVE: The patient had hemodialysis yesterday with 1 liter removed. The patient was febrile y esterday with temperature 102.4. No other acute events noted. No hemoptysis, hematemesis or hemato chezia. OBJECTIVE: VITAL SIGNS: Blood pressure 172/82, respiration 18, pulse 80, temperature 97.9. HEENT: Head is normocephalic. NECK: Supple. HEART: Regular rate. LUNGS: Show diminished breath sounds at base. Positive rhonchi. ABDOMEN: Soft, nontender to palpation. No rebound or guarding. EXTREMITIES: Negative for clubbing, cyanosis. No edema. DERMATOLOGIC: No rashes. MUSCULOSKELETAL: No joint effusions. NEUROLOGIC: No change in exam. MEDICATIONS: The patient's medications have been reviewed. LABORATORY DATA: From 10/09/2016 has been reviewed. ASSESSMENT AND PLAN: 1. End-stage renal disease, the patient on dialysis Monday, Monday, Monday. The patient will ruiz ve dialysis again today for 3 hours, 3K bath, calcium 2.5, ultrafiltrate as tolerated. 2. Anemia of chronic disease. Continue to monitor H and H levels. Continue Epogen with dialysis. 3. Mineral bone disorder. Continue to monitor calcium and phosphorus levels. 4. Hypertension. Continue current blood pressure regimen. Continue ultrafiltration dialysis. 5. Sepsis secondary to pneumonia. Continue current antibiotic regimen. 6. Atrial fibrillation, rate controlled. Continue current medical management. 7. Elevated troponin, possible Non-ST elevation myocardial infarction . Continue medical tika gement. Follow up with cardiology. 6. Diabetes, continue Accu-Cheks, insulin sliding scale. 7. Acute hypoxic respiratory failure secondary to pneumonia, volume overload, clinically improving. Continue current medical management. Dictated By: NOEMI BOTELLO/NTS Conf#: [id number] DID#: [id number]
[2016-10-10] MEDS: HEPARIN 5,000 UNIT/0.5 ML SYG SC SCH ×2 (12:00→21:29)
[2016-10-10 12:35] LABS: ADD SCAN DIFF NO
[2016-10-10 12:45] LABS: BASOPHIL # 0.1 10^3/ul (0.0-0.1); BASOPHILS % 0.4 % (0.0-2.0); EOSINOPHILS # 0.1 10^3/ul (0.0-0.5); EOSINOPHILS % 0.3 % (0.0-7.0); HEMATOCRIT 25.3 % (42.0-52.0); HEMOGLOBIN 7.9 g/dl (14.0-18.0); LYMPHOCYTES # 1.2 10^3/ul (0.8-2.9); LYMPHOCYTES % 6.4 % (15.0-51.0); MEAN CORPUSCULAR HEMOGLOBIN 27.3 pg (29.0-33.0); MEAN CORPUSCULAR HGB CONC 31.2 g/dl (32.0-37.0); MEAN CORPUSCULAR VOLUME 87.5 fl (82.0-101.0); MEAN PLATELET VOLUME 10.7 fl (7.4-10.4); MONOCYTE # 0.9 10^3/ul (0.3-0.9); MONOCYTES % 4.5 % (0.0-11.0); NEUTROPHIL # 16.8 10^3/ul (1.6-7.5); NEUTROPHILS % 87.9 % (39.0-77.0); PLATELET COUNT 263 10^3/UL (140-415); RED BLOOD COUNT 2.89 10^6/ul (4.70-6.10); RED CELL DISTRIBUTION WIDTH 15.9 % (11.5-14.5); WHITE BLOOD COUNT 19.2 10^3/ul (4.8-10.8)
[2016-10-10 12:59] LABS: CALCIUM 8.6 mg/dl (8.4-10.2); CREATININE 5.54 mg/dl (0.61-1.24)
[2016-10-10] MEDS: NIFEdipine (XL) 60 MG TAB PO SCH (21:20)
[2016-10-10] MEDS: ATORVASTATIN 40 MG TAB PO SCH (21:21)
[2016-10-10] MEDS: BENAZEPRIL 40 MG TAB PO SCH (21:21)
[2016-10-10] MEDS: LORAZEPAM 0.5 MG TAB PO SCH (21:22)
[2016-10-10] MEDS: METOPROLOL (XL) 25 MG TAB PO SCH ×2 (21:22→21:31)
[2016-10-10] MEDS: INSULIN GLARGINE [LANtus] 3 ML PEN SC SCH (21:30)
[2016-10-10] MEDS: ZOLPIDEM 5 MG TAB PO PRN (21:43)
[2016-10-11] VITALS (12 sets, daily range): BP systolic 112–180; BP diastolic 58–86; PULSE 75–90; RESP 18
[2016-10-11 00:30] LABS: ADD UMIC YES; URINE BILIRUBIN (Dip) NEGATIVE (NEGATIVE); URINE BLOOD (Dip) NEGATIVE (NEGATIVE); URINE COLOR LT. YELLOW (YELLOW); URINE KETONES (Dip) NEGATIVE (NEGATIVE); URINE LEUKOCYTE ESTERASE (Dip) NEGATIVE (NEGATIVE); URINE NITRITE (Dip) NEGATIVE (NEGATIVE); URINE TOTAL PROTEIN (Dip) 4+ (NEGATIVE); URINE UROBILINOGEN (Dip) 0.2 E.U./dL (0.1-1.0)
[2016-10-11 00:45] LABS: MUCUS,URINE MODERATE; SQUAMOUS EPITHELIAL CELL,UR MODERATE; URINE RBCS 0-2 /HPF (0)
[2016-10-11] MEDS: ACCU-CHEK XX SCH (06:00)
--- NOTE | 2016-10-11 08:13 | DS ---
DATE OF ADMISSION: 10/05/2016 DATE OF DISCHARGE: 10/10/2016 CONSULTANTS: 1. Cholo Tolbert DO 2. Archie Umana MD PROCEDURE: A 2D echocardiogram which showed a normal left ventricular wall thickness. Mild enlarge ment of left ventricle cavity, severe global left ventricle systolic dysfunction. Ejection fraction visually estimated at 25%. There is a moderate enlargement of the left atrium. There is mild enla rgement of right atrium. Mitral valve leaflet appeared mildly thickened. Mild mitral annular calci fication. Estimated peak PA systolic pressure 32 mmHg. OTHER PROCEDURES: Hemodialysis. DISCHARGE DIAGNOSES: 1. Acute respiratory distress secondary to volume overload with underlying end-stage renal disease and congestive heart failure, improved. 2. Atrial fibrillation with rapid ventricular response, converted back to sinus. Continue metoprol ol. 3. Non-ST elevation myocardial infarction. Cardiology was consulted. Elevation of troponin is lik cynthia secondary to tachyarrhythmia and end-stage renal disease. 4. End-stage renal disease on hemodialysis. 5. History of diabetes mellitus type 2. Hemoglobin 6.3. Continue NovoLog. 6. Anemia of chronic disease. 7. History of coronary artery disease. Continue home medications. Follow up with operating room specialist at [facility]. 8. Hypertensive urgency, resolved. 9. Acute on chronic systolic congestive heart failure with ejection fraction of 25%. MEDICATIONS: 1. Lorazepam. 2. Ventolin. 3. Aspirin. 4. Lipitor. 5. Benazepril. 6. Plavix. 7. Vitamin B12. 8. Ferrous sulfate. 9. Folic acid. 10. Lasix. 11. Glipizide. 12. Magnesium oxide. 13. Melatonin. 14. Nifedipine. 15. Omeprazole. 16. Kenalog. 17. CoQ10. 18. Zinc sulfate. 19. Ambien. ALLERGIES: NO KNOWN DRUG ALLERGIES. HOSPITAL COURSE: This is a 76-year-old gentleman with past medical history of coronary artery disea se, diabetes mellitus x2, atrial fibrillation, end-stage renal disease on hemodialysis, who was rece ntly at [facility] and had angioplasty, who presents to [facility] secondar y to having shortness of breath without any chest pain. Upon arrival to evaluation his ejection fra ction was found to be 25%, normal left ventricular wall thickness, mild enlargement of left ventricl e cavity, severe global left ventricle systolic dysfunction. Estimated peak PA systolic pressure wa s 32 mmHg. The patient was seen and evaluated by the operating room specialist and manager shell. The patient al so was found to have episodes of hypertension urgency. His blood pressure medication was adjusted b y the operating room specialist. He obtained his hemodialysis for fluid overload. The papers for angioplasty an d angiogram from [facility] was requested, unfortunately, the only thing that was st ent was the thoracic echocardiogram which demonstrated ejection fraction of 45%. The operating room specialist, Dr. Cuca Ji, evaluated the patient in [facility] which suggested the patient had an angiogram. The patient was apparently also seen by cardiothoracic surgeon and the plan was for patient to follow up with Dr. Alvarez, cardiothoracic surgeon, for possible CABG at that facilit y. At this time, the patient is instructed to follow up with Dr. Nick, cardiology, for further ev aluation and treatment as outpatient for further evaluation for medical management versus surgical i ntervention for his multiple vessel coronary artery disease. Dictated By: SHANTELL KIMBLE/NTS Conf#: [id number] DID#: [id number]
[2016-10-11] MEDS: INSULIN ASPART [NOVOLOG] 3 ML PEN SC SCH ×4 (08:39→20:58)
[2016-10-11] MEDS: HEPARIN 5,000 UNIT/0.5 ML SYG SC SCH ×2 (08:39→20:57)
[2016-10-11] MEDS: FERROUS SULFATE (SR) 142 MG TAB PO SCH (08:40)
[2016-10-11] MEDS: FOLIC ACID 0.4 MG TAB PO SCH (08:40)
[2016-10-11] MEDS: MAGNESIUM OXIDE 400 MG TAB PO SCH (08:40)
[2016-10-11] MEDS: ASPIRIN (EC) 325 MG TAB PO SCH (08:41)
[2016-10-11] MEDS: CYANOCOBALAMIN 500 MCG TAB PO SCH (08:41)
[2016-10-11] MEDS: CLOPIDOGREL 75 MG TAB PO SCH (08:41)
[2016-10-11] MEDS: FAMOTIDINE 20 MG TAB PO SCH (08:41)
[2016-10-11] MEDS: LINAGLIPTIN 5 MG TABLET PO SCH (08:41)
[2016-10-11] MEDS: METOPROLOL (XL) 25 MG TAB PO SCH ×2 (08:41→20:41)
[2016-10-11] MEDS: TRIAMCINOLONE ACET 0.1% 15 GM OINT TOP SCH ×2 (08:41→20:58)
--- NOTE | 2016-10-11 09:56 | PN ---
DATE: 10/11/2016 SUBJECTIVE: The patient had hemodialysis yesterday, and tolerated it well. Patient continues to ruiz ve intermittent episodes of shortness of breath but is improving. The patient yesterday, however, w as noted to be in atrial fibrillation, and was placed on diltiazem drip. No other acute events note d. OBJECTIVE: VITAL SIGNS: Blood pressure 138/71, respiration 18, pulse 78, temperature 97.9. HEENT: Head is normocephalic. NECK: Supple. HEART: Irregularly irregular. LUNGS: Show diminished breath sounds at base. ABDOMEN: Soft, nontender to palpation without rebound or guarding. EXTREMITIES: Negative for clubbing, cyanosis. No edema. DERMATOLOGIC: No rashes. MUSCULOSKELETAL: No joint effusions. NEUROLOGIC: No change in exam. MEDICATIONS: The patient's medications have been reviewed. LABORATORY DATA: Cultures from 10/05/2016, gram-negative rods. CBC from 09/12/2016 shows white cou nt 19.2, hemoglobin 7.9, hematocrit 25.3, platelet count is 263. IMAGING: Chest x-ray from 10/09/2016 was reviewed. ASSESSMENT AND PLAN: 1. End-stage renal disease: The patient is on dialysis Monday, Monday, Monday. The patient had hemodialysis yesterday, tolerated well. Plan again for dialysis tomorrow for 3 hours, 3K bath, ca lcium 2.5. 2. Volume overload: We will continue ultrafiltration with hemodialysis. The patient is near euvo lemic status. 3. Anemia of chronic disease: Continue to monitor hemoglobin and hematocrit levels. Continue Epog en with dialysis. , monitor calcium and phosphorus levels. 5. Atrial fibrillation.: The patient is on diltiazem drip. Will continue. Follow up with Cardiol castillo. 6. Sepsis secondary to pneumonia: Continue current antibiotic regimen. 7. Elevated troponin: Possibly non-ST Type 2. 8. elevation myocardial infarction type 2. Continue current medical management. 8. Diabetes. Continue Accu-Cheks and sliding scale. 9. Acute hypoxemic respiratory failure secondary to pneumonia Volume overload clinically improving. Continue current medical management. 10. Congestive heart failure, cardiomyopathy.: Continue current medical management. Follow up wit h Cardiology. Dictated By: NOEMI BOTELLO/CHANTALE Conf#: [id number] [facility]#: [id number]
[2016-10-11] MEDS ORDERED: VANCOMYCIN IV PER PHARMACY XX SCH (10:30)
--- NOTE | 2016-10-11 11:21 | CONS ---
Date/Time of Note Date/Time of Note DATE: 10/11/16 TIME: 11:19 Assessment/Plan Assessment/Plan Additional Assessment/Plan 1. Atrial fibrillation with rapid ventricular response-now rate controlled- IN SINUS NOW - con't to follow 2. Abnormal electrocardiogram with inferolateral ST depressions- SINUS W ITH LONG CT now. 3. Positive troponin, assess significance- no CP- no intervention planned today - RECORDS from OSH available. Spoke with - still no records available, will try to facilitate thought the day - might need f/up cath - pt aware - agrees with plan. 4. Cardiomyopathy, decreased left ventricular ejection fraction last approximately 45% by outside hospital paperwork at [facility] 09/09. Now approx 25% by echo here - outpt ICD 5. History of PTCA and stent placement at [facility] recently.-per notes had PCI at [facility](08/2016)after being thought to be poor surgical candidate but cath report not sent from [facility]. Had originally transferred from [facility] where was cathed and found to have 3VD after suffering NH. 6. Renal failure- avoid nephrotoxic meds now. 7. Hypertension. 8. Shortness of breath. 9. Generalized weakness. 10. Diabetes mellitus. 11. Anemia. 12.CHF-systolic acute on chronic- better fluid status now. Consultation Date/Type/Reason Admit Date/Time Oct 05, 2016 at 21:04 Type of Consultation: Cardiology Referring Provider: JANAE ELDRIDGE 24 HR Interval Summary Free Text/Dictation Spoke with - still no records available, will try to facilitate thought the day - might need f/up cath - pt aware - agrees with plan. In sinus now. ROS: No fever, no chills, no nausea, no vomiting, no diarrhea/constipation No recent weight changes No chest pain, no PND, no orthopnea No dizziness, blurred vision No thirst, no heat or cold intolerance (better) Exam/Review of Systems Vital Signs Vitals Vital Signs Date Time Temp Pulse Resp B/P Pulse Ox O2 Delivery O2 Flow Rate FiO2 10/11/16 10:56 97.9 80 18 127/70 99 10/09/16 22:10 Room Air 10/09/16 17:33 2.0 Intake and Output 10/10/16 10/10/16 10/11/16 15:00 23:00 07:00 Intake Total 400 ml 520 ml 200 ml Output Total 3400 ml Balance -3000 ml 520 ml 200 ml Exam General: WN/WD/NAD, AOx 3 HEENT: Unicetric/atraumatic/EOMI (follow commands) NECK: JVD elevated, no thyromegaly Lymph: no lymphadenopathy HEART: regular with no S3, II/ systolic murmur at apex, PMI L LUNGS: Coarse sounds ABD: soft, NT, ND, +BS : Intact Neuro: non focal SKIN: chronic changes EXT: trace edema Results Result Diagram: 10/10/16 1125 10/10/16 1125 Results 24 hrs Laboratory Tests Test 10/10/16 11:25 10/10/16 12:59 10/10/16 17:20 10/10/16 19:53 Anion Gap 18 H Basophils # 0.1 Basophils % 0.4 Blood Urea Nitrogen 35 H Calcium Level 8.6 Carbon Dioxide Level 29 Chloride Level 95 L Creatinine 5.54 H Eosinophils # 0.1 Eosinophils % 0.3 Glucose Level 181 Hematocrit 25.3 L Hemoglobin 7.9 L Lymphocytes # 1.2 Lymphocytes % 6.4 L Mean Corpuscular Hemoglobin 27.3 L Mean Corpuscular Hemoglobin Concent 31.2 L Mean Corpuscular Volume 87.5 Mean Platelet Volume 10.7 H Monocytes # 0.9 Monocytes % 4.5 Neutrophils # 16.8 H Neutrophils % 87.9 H Nucleated Red Blood Cells # 0.0 Nucleated Red Blood Cells % 0.0 Platelet Count 263 Potassium Level 4.0 Red Blood Count 2.89 L Red Cell Distribution Width 15.9 H Sodium Level 138 White Blood Count 19.2 #H Bedside Glucose 181 217 190 Test 10/10/16 23:20 10/11/16 06:06 10/11/16 08:05 Urine Bilirubin NEGATIVE Urine Clarity CLEAR Urine Color LT. YELLOW Urine Glucose 0.25% H Urine Hemoglobin NEGATIVE Urine Hyaline Casts OCCASIONAL Urine Ketones NEGATIVE Urine Leukocyte Esterase NEGATIVE Urine Microscopic RBC 0-2 Urine Microscopic WBC 0-2 Urine Mucus MODERATE Urine Nitrite NEGATIVE Urine Specific [place] 1.015 Urine Squamous Epithelial Cells MODERATE Urine Total Protein 4+ H Urine Urobilinogen 0.2 E.U./dL Urine pH 7.5 Bedside Glucose 245 H 229 H Medications Medications Current Medications Ondansetron HCl (Zofran Inj) 4 mg Q6H PRN IV NAUSEA AND/OR VOMITING; Start at 21:30 Acetaminophen (Tylenol Tab) 650 mg Q6H PRN PO PAIN LEVEL 1-3 OR FEVER Last administered on 10/09/16 22:22; Admin Dose 650 MG; Start 10/05/16 at 21:30 Acetaminophen/ Hydrocodone Bitart ([place] (5/325)) 1 tab Q6H PRN PO MODERATE PAIN LEVEL 4-6; Start 10/05/16 at 21:30 Morphine Sulfate (morphine) 2 mg Q4H PRN IV SEVERE PAIN LEVEL 7-10; Start 10/05 at 21:30 Docusate Sodium (Colace) 100 mg Q12H PRN PO CONSTIPATION; Start 10/05/16 at 21: 30 Magnesium Hydroxide (Milk Of Mag) 30 ml DAILY PRN PO CONSTIPATION; Start at 21:30 Sodium Biphosphate/ Sodium Phosphate (Fleet Enema) [address] CONSTIPATION; Start 10/05/16 at 21:30 Famotidine (Pepcid) 20 mg DAILY PO Last administered on 10/11/16 08:41; Admin Dose 20 MG; Start 10/06/16 at 09:00 Lorazepam (Ativan) 0.5 mg Q6H PRN IV ANXIETY Last administered on 10/06/16 15: 12; Admin Dose 0.5 MG; Start 10/05/16 at 21:30 Hydralazine HCl (Apresoline) 10 mg Q6H PRN IV ELEVATED SYSTOLIC BP Last administered on 10/07/16 05:23; Admin Dose 10 MG; Start 10/05/16 at 21:30 Clonidine (Catapres) 0.1 mg Q6H PRN PO ELEVATED SYSTOLIC BP; Start 10/05/16 at 21:30 Nitroglycerin (Nitroglycerin (Sl Tab) 0.4 Mg) 1 tab Q5M PRN SL ANGINA; Start at 21:30 Aspirin 325 mg 325 mg DAILY PO Last administered on 10/11/16 08:41; Admin Dose 325 MG; Start 10/06/16 at 09:00 Diltiazem HCl (Cardizem-D5W 125 Mg/125 ml Drip) 125 ml @ 5 mls/hr TITRATE IV ; Start 10/05/16 at 22:00 Diagnostic Test (Pha) (Accucheck) 1 ea 02 XX Last administered on 10/11/16 06: 00; Admin Dose 1 EA; Start 10/07/16 at 02:00 Zolpidem Tartrate (Ambien) 5 mg HS PRN PO INSOMNIA Last administered on 01:08; Admin Dose 5 MG; Start 10/06/16 at 01:00 Miscellaneous Information 1 ea NOTE XX ; Start 10/06/16 at 01:00 Glucose (Glutose) 15 gm Q15M PRN PO DECREASED GLUCOSE; Start 10/06/16 at 01:00 Glucose (Glutose) 22.5 gm Q15M PRN PO DECREASED GLUCOSE; Start 10/06/16 at 01: 00 Dextrose (D50w Syringe) 25 ml Q15M PRN IV DECREASED GLUCOSE; Start 10/06/16 at 01:00 Dextrose (D50w Syringe) 50 ml Q15M PRN IV DECREASED GLUCOSE; Start 10/06/16 at 01:00 Glucagon (Glucagen) 1 mg Q15M PRN IM DECREASED GLUCOSE; Start 10/06/16 at 01:00 Glucose (Glutose) 15 gm Q15M PRN BUCCAL DECREASED GLUCOSE; Start 10/06/16 at 01 :00 Cyanocobalamin (Vitamin B12) 1,000 mcg DAILY PO Last administered on 10/11/16 08:41; Admin Dose 1,000 MCG; Start 10/06/16 at 09:00 Folic Acid (Folic Acid) 0.8 mg DAILY PO Last administered on 10/11/16 08:40; Admin Dose 0.8 MG; Start 10/06/16 at 09:00 Triamcinolone Acetonide (Kenalog 0.1% Oint) 1 applic BID TOP Last administered on 10/11/16 08:41; Admin Dose 1 APPLIC; Start 10/06/16 at 09:00 Ferrous Sulfate (Slow Fe) 142 mg DAILY PO Last administered on 10/11/16 08:40 ; Admin Dose 142 MG; Start 10/07/16 at 09:00 Magnesium Oxide (Mag-Ox 400) 400 mg DAILY PO Last administered on 10/11/16 08: 40; Admin Dose 400 MG; Start 10/06/16 at 13:00 Clopidogrel Bisulfate (plaVIX) 75 mg DAILY PO Last administered on 10/11/16 08 :41; Admin Dose 75 MG; Start 10/06/16 at 12:00 Atorvastatin Calcium (Lipitor) 40 mg QHS PO Last administered on 10/10/16 21: 21; Admin Dose 40 MG; Start 10/06/16 at 21:00 Zolpidem Tartrate (Ambien) 10 mg QHS PRN PO INSOMNIA Last administered on 21:43; Admin Dose 10 MG; Start 10/06/16 at 16:30 Lorazepam (Ativan) 1 mg HS PO Last administered on 10/10/16 21:22; Admin Dose 1 MG; Start 10/07/16 at 21:00 Insulin Glargine (Lantus) 10 unit HS SC Last administered on 10/10/16 21:30; Admin Dose 10 UNIT; Start 10/07/16 at 21:00 Linagliptin (Tradjenta) 5 mg DAILY PO Last administered on 10/11/16 08:41; Admin Dose 5 MG; Start 10/07/16 at 17:00 Metoprolol Succinate (Toprol Xl) 25 mg BID PO Last administered on 10/11/16 08 :41; Admin Dose 25 MG; Start 10/07/16 at 21:00 Heparin Sodium (Porcine) (Heparin (5000 Units/0.5 ml)) 5,000 unit BID SC Last administered on 10/11/16 08:39; Admin Dose 5,000 UNIT; Start 10/10/16 at 12:00 Benazepril HCl (Lotensin) 40 mg QHS PO Last administered on 10/10/16 21:21; Admin Dose 40 MG; Start 10/10/16 at 21:00 Nifedipine 60 mg 60 mg QHS PO Last administered on 10/10/16 21:20; Admin Dose 60 MG; Start 10/10/16 at 21:00 Piperacillin Sod/ Tazobactam Sod 50 ml @ 100 mls/hr Q8 IVPB ; Start 10/11/16 at 11:00 Vancomycin HCl (Vancocin) 250 ml @ 125 mls/hr ONCE ONCE IVPB ; Start 10/11/16 at 12:00; Stop 10/11/16 at 13:59 BALAJI YI MD Oct 11, 2016 11:21
[2016-10-11] MEDS: PIPER-TAZO 2.25 GM (PMX) 50 ML IVPB SCH ×2 (11:39→21:59)
[2016-10-11 11:45] LABS: ADD SCAN DIFF NO
[2016-10-11 11:54] LABS: BASOPHILS % 0.3 % (0.0-2.0); EOSINOPHILS # 0.2 10^3/ul (0.0-0.5); EOSINOPHILS % 1.4 % (0.0-7.0); HEMATOCRIT 31.4 % (42.0-52.0); HEMOGLOBIN 9.6 g/dl (14.0-18.0); LYMPHOCYTES # 1.6 10^3/ul (0.8-2.9); LYMPHOCYTES % 13.2 % (15.0-51.0); MEAN CORPUSCULAR HEMOGLOBIN 26.9 pg (29.0-33.0); MEAN CORPUSCULAR HGB CONC 30.6 g/dl (32.0-37.0); MEAN PLATELET VOLUME 10.7 fl (7.4-10.4); MONOCYTE # 0.9 10^3/ul (0.3-0.9); MONOCYTES % 7.3 % (0.0-11.0); NEUTROPHIL # 9.6 10^3/ul (1.6-7.5); NEUTROPHILS % 77.5 % (39.0-77.0); PLATELET COUNT 283 10^3/UL (140-415); RED BLOOD COUNT 3.57 10^6/ul (4.70-6.10); RED CELL DISTRIBUTION WIDTH 15.5 % (11.5-14.5); WHITE BLOOD COUNT 12.4 10^3/ul (4.8-10.8)
[2016-10-11] MEDS ORDERED: VANCOMYCIN 1 GM (PMX) 250 ML IVPB ONE (12:00)
[2016-10-11 12:06] LABS: POTASSIUM 4.6 mmol/L (3.5-5.1)
[2016-10-11 12:09] LABS: CREATININE 5.36 mg/dl (0.61-1.24)
--- NOTE | 2016-10-11 18:38 | PN ---
Date/Time of Note Date/Time of Note DATE: 10/11/16 TIME: 18:34 Assessment/Plan VTE Prophylaxis VTE Prophylaxis Intervention: heparin Lines/Catheters IV Catheter Type (from Nrs): [place] Urinary Cath still in place: No Assessment/Plan Assessment/Plan 1. Acute respiratory distress secondary to volume overload with underlying end- stage renal disease and congestive heart failure, improved. 2. Atrial fibrillation with rapid ventricular response, converted back to sinus now rate controlled 3. ?Troponin elevation of uncertain significance 4. End-stage renal disease on hemodialysis. 5. History of diabetes mellitus type 2. Hemoglobin 6.3. 6. Anemia of chronic disease. 7. Known coronary artery disease with history of PTCA and stent placement at [facility]. 8. Hypertensive urgency, resolved. 9. Acute on chronic systolic congestive heart failure with ejection fraction of 25%. PLAN: * continue current mgt * Cardiology still awaiting complete cath report from [place], this important to see if patient's reduced EF can be corrected via PCI. * If no report by tomorrow, probable repeat Cath here per Dr heath * Repeat blood cultures / empiric abx to cover for PNA as well * Continue current supportive care. * Prophylaxis: Heparin / pepcid Subjective 24 Hr Interval Summary Free Text/Dictation * No chest pain * requesting more flan * reviewed alongside cardiology Exam/Review of Systems Vital Signs Vitals Vital Signs Date Time Temp Pulse Resp B/P Pulse Ox O2 Delivery O2 Flow Rate FiO2 10/11/16 18:17 151/75 10/11/16 16:26 86 10/11/16 15:19 98.2 18 97 10/09/16 22:10 Room Air 10/09/16 17:33 2.0 Intake and Output 10/10/16 10/10/16 10/11/16 15:00 23:00 07:00 Intake Total 400 ml 520 ml 200 ml Output Total 3400 ml Balance -3000 ml 520 ml 200 ml Exam Constitutional: alert, frail, oriented, No distress Psych: anxiety Head: normocephalic Eyes: PERRL Neck: non-tender Respiratory: clear to auscultation, diminished breath sounds Cardiovascular: murmurs/extra sounds, regular rate and rhythm Gastrointestinal: bowel sounds, non-tender, soft Extremities: No edema Neurological: nl mental status, nl speech Results Result Diagram: 10/11/16 1130 10/11/16 1130 Results 24 hrs Laboratory Tests Test 10/10/16 19:53 10/10/16 23:20 10/11/16 06:06 10/11/16 08:05 Bedside Glucose 190 245 H 229 H Urine Bilirubin NEGATIVE Urine Clarity CLEAR Urine Color LT. YELLOW Urine Glucose 0.25% H Urine Hemoglobin NEGATIVE Urine Hyaline Casts OCCASIONAL Urine Ketones NEGATIVE Urine Leukocyte Esterase NEGATIVE Urine Microscopic RBC 0-2 Urine Microscopic WBC 0-2 Urine Mucus MODERATE Urine Nitrite NEGATIVE Urine Specific [place] 1.015 Urine Squamous Epithelial Cells MODERATE Urine Total Protein 4+ H Urine Urobilinogen 0.2 E.U./dL Urine pH 7.5 Test 10/11/16 11:30 10/11/16 11:37 10/11/16 16:46 Anion Gap 20 H Basophils # 0.0 Basophils % 0.3 Blood Urea Nitrogen 39 H Calcium Level 9.0 Carbon Dioxide Level 30 Chloride Level 96 L Creatinine 5.36 H Eosinophils # 0.2 Eosinophils % 1.4 Glucose Level 168 Hematocrit 31.4 #L Hemoglobin 9.6 #L Lymphocytes # 1.6 Lymphocytes % 13.2 L Magnesium Level 2.2 Mean Corpuscular Hemoglobin 26.9 L Mean Corpuscular Hemoglobin Concent 30.6 L Mean Corpuscular Volume 88.0 Mean Platelet Volume 10.7 H Monocytes # 0.9 Monocytes % 7.3 Neutrophils # 9.6 H Neutrophils % 77.5 H Nucleated Red Blood Cells # 0.0 Nucleated Red Blood Cells % 0.0 Platelet Count 283 Potassium Level 4.6 Red Blood Count 3.57 #L Red Cell Distribution Width 15.5 H Sodium Level 141 White Blood Count 12.4 #H Bedside Glucose 171 192 Medications Medications Current Medications Ondansetron HCl (Zofran Inj) 4 mg Q6H PRN IV NAUSEA AND/OR VOMITING; Start at 21:30 Acetaminophen (Tylenol Tab) 650 mg Q6H PRN PO PAIN LEVEL 1-3 OR FEVER Last administered on 10/09/16t 22:22; Admin Dose 650 MG; Start 10/05/16 at 21:30 Acetaminophen/ Hydrocodone Bitart ([place] (5/325)) 1 tab Q6H PRN PO MODERATE PAIN LEVEL 4-6; Start 10/05/16 at 21:30 Morphine Sulfate (morphine) 2 mg Q4H PRN IV SEVERE PAIN LEVEL 7-10; Start 10/05 at 21:30 Docusate Sodium (Colace) 100 mg Q12H PRN PO CONSTIPATION; Start 10/05/16 at 21: 30 Magnesium Hydroxide (Milk Of Mag) 30 ml DAILY PRN PO CONSTIPATION; Start at 21:30 Sodium Biphosphate/ Sodium Phosphate (Fleet Enema) 133 ml DAILY PRN [place] CONSTIPATION; Start 10/05/16 at 21:30 Famotidine (Pepcid) 20 mg DAILY PO Last administered on 10/11/16 08:41; Admin Dose 20 MG; Start 10/06/16 at 09:00 Lorazepam (Ativan) 0.5 mg Q6H PRN IV ANXIETY Last administered on 10/06/16 15: 12; Admin Dose 0.5 MG; Start 10/05/16 at 21:30 Hydralazine HCl (Apresoline) 10 mg Q6H PRN IV ELEVATED SYSTOLIC BP Last administered on 10/07/16 05:23; Admin Dose 10 MG; Start 10/05/16 at 21:30 Clonidine (Catapres) 0.1 mg Q6H PRN PO ELEVATED SYSTOLIC BP; Start 10/05/16 at 21:30 Nitroglycerin (Nitroglycerin (Sl Tab) 0.4 Mg) 1 tab Q5M PRN SL ANGINA; Start at 21:30 Aspirin 325 mg 325 mg DAILY PO Last administered on 10/11/16 08:41; Admin Dose 325 MG; Start 10/06/16 at 09:00 Diltiazem HCl (Cardizem-D5W 125 Mg/125 ml Drip) 125 ml @ 5 mls/hr TITRATE IV ; Start 10/05/16 at 22:00 Diagnostic Test (Pha) (Accucheck) 1 ea 02 XX Last administered on 10/11/16 06: 00; Admin Dose 1 EA; Start 10/07/16 at 02:00 Zolpidem Tartrate (Ambien) 5 mg HS PRN PO INSOMNIA Last administered on 01:08; Admin Dose 5 MG; Start 10/06/16 at 01:00 Miscellaneous Information 1 ea NOTE XX ; Start 10/06/16 at 01:00 Glucose (Glutose) 15 gm Q15M PRN PO DECREASED GLUCOSE; Start 10/06/16 at 01:00 Glucose (Glutose) 22.5 gm Q15M PRN PO DECREASED GLUCOSE; Start 10/06/16 at 01: 00 Dextrose (D50w Syringe) 25 ml Q15M PRN IV DECREASED GLUCOSE; Start 10/06/16 at 01:00 Dextrose (D50w Syringe) 50 ml Q15M PRN IV DECREASED GLUCOSE; Start 10/06/16 at 01:00 Glucagon (Glucagen) 1 mg Q15M PRN IM DECREASED GLUCOSE; Start 10/06/16 at 01:00 Glucose (Glutose) 15 gm Q15M PRN BUCCAL DECREASED GLUCOSE; Start 10/06/16 at 01 :00 Cyanocobalamin (Vitamin B12) 1,000 mcg DAILY PO Last administered on 10/11/16 08:41; Admin Dose 1,000 MCG; Start 10/06/16 at 09:00 Folic Acid (Folic Acid) 0.8 mg DAILY PO Last administered on 10/11/16 08:40; Admin Dose 0.8 MG; Start 10/06/16 at 09:00 Triamcinolone Acetonide (Kenalog 0.1% Oint) 1 applic BID TOP Last administered on 10/11/16 08:41; Admin Dose 1 APPLIC; Start 10/06/16 at 09:00 Ferrous Sulfate (Slow Fe) 142 mg DAILY PO Last administered on 10/11/16 08:40 ; Admin Dose 142 MG; Start 10/07/16 at 09:00 Magnesium Oxide (Mag-Ox 400) 400 mg DAILY PO Last administered on 10/11/16 08: 40; Admin Dose 400 MG; Start 10/06/16 at 13:00 Clopidogrel Bisulfate (plaVIX) 75 mg DAILY PO Last administered on 10/11/16 08 :41; Admin Dose 75 MG; Start 10/06/16 at 12:00 Atorvastatin Calcium (Lipitor) 40 mg QHS PO Last administered on 10/10/16 21: 21; Admin Dose 40 MG; Start 10/06/16 at 21:00 Zolpidem Tartrate (Ambien) 10 mg QHS PRN PO INSOMNIA Last administered on 21:43; Admin Dose 10 MG; Start 10/06/16 at 16:30 Lorazepam (Ativan) 1 mg HS PO Last administered on 10/10/16 21:22; Admin Dose 1 MG; Start 10/07/16 at 21:00 Insulin Glargine (Lantus) 10 unit HS SC Last administered on 10/10/16 21:30; Admin Dose 10 UNIT; Start 10/07/16 at 21:00 Linagliptin (Tradjenta) 5 mg DAILY PO Last administered on 10/11/16 08:41; Admin Dose 5 MG; Start 10/07/16 at 17:00 Metoprolol Succinate (Toprol Xl) 25 mg BID PO Last administered on 10/11/16 08 :41; Admin Dose 25 MG; Start 10/07/16 at 21:00 Heparin Sodium (Porcine) (Heparin (5000 Units/0.5 ml)) 5,000 unit BID SC Last administered on 10/11/16 08:39; Admin Dose 5,000 UNIT; Start 10/10/16 at 12:00 Benazepril HCl (Lotensin) 40 mg QHS PO Last administered on 10/10/16 21:21; Admin Dose 40 MG; Start 10/10/16 at 21:00 Nifedipine 60 mg 60 mg QHS PO Last administered on 10/10/16 21:20; Admin Dose 60 MG; Start 10/10/16 at 21:00 Piperacillin Sod/ Tazobactam Sod (Zosyn 2.25gm/ 50ml (Pmx)) 50 ml @ 100 mls/hr Q8 IVPB Last administered on 10/11/16 11:39; Admin Dose 100 MLS/HR; Start at 11:00 Procedures Procedures PROCEDURE: XR Chest. CLINICAL INDICATION: Lung infection. TECHNIQUE: Single frontal view of the chest was obtained COMPARISON: 10/08/2016. FINDINGS: Right central venous dialysis catheter in place with tip in right atrium. Cardiomegaly and atherosclerotic calcifications in the thoracic aorta. Increased patchy bilateral air space disease with pulmonary vascular congestion and stable right pleural effusion with increased left pleural effusion. Right lung air space disease is substantially increased when compared to the left lung air space disease. Findings may represent a right lung pneumonia in setting of sepsis. There is no pleural effusion or pneumothorax. IMPRESSION: 1. Increased moderate to severe failure versus volume overload. 2. Differential considerations include right lung pneumonia. RPTAT: UU Johann Feliz, Physician Date Time Electronically viewed and signed by Johann Feliz, Physician on 10/10/2016 02:30 RS/ CC: LESLI BETTENCOURT BOLATITO M. Oct 11, 2016 18:38 Johann Feliz, Physician Date Time Electronically viewed and signed by Johann Feliz, Physician on 10/10/2016 02:30 RS/ CC: LESLI BETTENCOURT BOLATITO M. Oct 11, 2016 18:38
[2016-10-11] MEDS: NIFEdipine (XL) 60 MG TAB PO SCH (20:40)
[2016-10-11] MEDS: LORAZEPAM 0.5 MG TAB PO SCH (20:40)
[2016-10-11] MEDS: BENAZEPRIL 40 MG TAB PO SCH (20:40)
[2016-10-11] MEDS: ATORVASTATIN 40 MG TAB PO SCH (20:40)
[2016-10-11] MEDS: INSULIN GLARGINE [LANtus] 3 ML PEN SC SCH (20:57)
[2016-10-11] MEDS: ZOLPIDEM 5 MG TAB PO PRN (22:00)
[2016-10-12] VITALS (20 sets, daily range): BP systolic 110–180; BP diastolic 59–103; PULSE 66–99; RESP 16–18
[2016-10-12] MEDS: ACCU-CHEK XX SCH (05:36)
[2016-10-12] MEDS: PIPER-TAZO 2.25 GM (PMX) 50 ML IVPB SCH ×3 (05:42→22:04)
[2016-10-12] MEDS: INSULIN ASPART [NOVOLOG] 3 ML PEN SC SCH ×4 (07:55→20:51)
[2016-10-12] MEDS: FAMOTIDINE 20 MG TAB PO SCH (08:09)
[2016-10-12] MEDS: CLOPIDOGREL 75 MG TAB PO SCH (08:09)
[2016-10-12] MEDS: CYANOCOBALAMIN 500 MCG TAB PO SCH (08:09)
[2016-10-12] MEDS: ASPIRIN (EC) 325 MG TAB PO SCH (08:09)
[2016-10-12] MEDS: LINAGLIPTIN 5 MG TABLET PO SCH (08:10)
[2016-10-12] MEDS: FOLIC ACID 0.4 MG TAB PO SCH (08:10)
[2016-10-12] MEDS: FERROUS SULFATE (SR) 142 MG TAB PO SCH (08:10)
[2016-10-12] MEDS: MAGNESIUM OXIDE 400 MG TAB PO SCH (08:10)
[2016-10-12] MEDS: METOPROLOL (XL) 25 MG TAB PO SCH ×2 (08:11→20:51)
[2016-10-12] MEDS: HEPARIN 5,000 UNIT/0.5 ML SYG SC SCH ×2 (08:19→21:09)
[2016-10-12] MEDS: TRIAMCINOLONE ACET 0.1% 15 GM OINT TOP SCH ×2 (08:19→22:04)
--- NOTE | 2016-10-12 10:09 | CONS ---
Date/Time of Note Date/Time of Note DATE: 10/12/16 TIME: 10:07 Assessment/Plan Assessment/Plan Chief Complaint/Hosp Course IMPRESSION: 1. Atrial fibrillation with rapid ventricular response-now rate controlled 2. Abnormal electrocardiogram with inferolateral ST depressions. 3. Positive troponin, assess significance. 4. Cardiomyopathy, decreased left ventricular ejection fraction last approximately 45% by outside hospital paperwork at [facility] 09/09. Now approx 25% by echo here 5. History of PTCA and stent placement at [facility] recently.-[facility]after being thought to be poor surgical candidate but cath report not sent from [place]. Had originally transferred from [facility] where was cathed and found to have 3VD after suffering RI. 6. Renal failure. 7. Hypertension. 8. Shortness of breath. 9. Generalized weakness. 10. Diabetes mellitus. 11. Anemia. 12.CHF-systolic acute on chronic Recc: -Tele -Continue BB/ACEI/CCB -Continue asa/plavix/statin -Still await cath report from [place] to see what was stented with possible need for repeat LHC given now worsened LVEF from that at [facility] just last month. -HD for volume removal. -SQ heparin -Put on schedule for LHC tomorrow AM Problems: Consultation Date/Type/Reason Admit Date/Time Oct 05, 2016 at 21:04 Initial Consult Date 10/06/2016 Type of Consultation: Cardiology Reason for Consultation positive troponin Referring Provider: JANAE ELDRIDGE Exam/Review of Systems Vital Signs Vitals Vital Signs Date Time Temp Pulse Resp B/P Pulse Ox O2 Delivery O2 Flow Rate FiO2 10/12/16 08:04 66 10/12/16 07:19 98.2 16 152/69 96 10/09/16 22:10 Room Air 10/09/16 17:33 2.0 Intake and Output 10/11/16 10/11/16 10/12/16 15:00 23:00 07:00 Intake Total 750 ml 150 ml Balance 750 ml 150 ml Exam Review of Systems: CONSTITUTIONAL: No fevers, chills. PULMONARY: No sob CARDIOVASCULAR: intermittent chest pain GASTROINTESTINAL: No nausea/vomiting. GENITOURINARY: No hematuria/dysuria. MUSCULOSKELETAL: No myagias/arthalgias. PSYCHIATRIC: The patient denies depression. NEUROLOGIC: No weakness Constitutional: alert Psych: no complaints Head: normocephalic ENMT: mucosa pink and moist Neck: jvd (9 cm water), supple Respiratory: diminished breath sounds (at bases/B) Cardiovascular: regular rate and rhythm Gastrointestinal: non-tender, soft Musculoskeletal: muscle tone (normal) Extremities: edema (none) Neurological: other (No focal deficits) Results Result Diagram: 10/11/16 1130 10/11/16 1130 Results 24 hrs Laboratory Tests Test 10/11/16 11:30 10/11/16 11:37 10/11/16 16:46 10/11/16 19:56 Anion Gap 20 H Basophils # 0.0 Basophils % 0.3 Blood Urea Nitrogen 39 H Calcium Level 9.0 Carbon Dioxide Level 30 Chloride Level 96 L Creatinine 5.36 H Eosinophils # 0.2 Eosinophils % 1.4 Glucose Level 168 Hematocrit 31.4 #L Hemoglobin 9.6 #L Lymphocytes # 1.6 Lymphocytes % 13.2 L Magnesium Level 2.2 Mean Corpuscular Hemoglobin 26.9 L Mean Corpuscular Hemoglobin Concent 30.6 L Mean Corpuscular Volume 88.0 Mean Platelet Volume 10.7 H Monocytes # 0.9 Monocytes % 7.3 Neutrophils # 9.6 H Neutrophils % 77.5 H Nucleated Red Blood Cells # 0.0 Nucleated Red Blood Cells % 0.0 Platelet Count 283 Potassium Level 4.6 Red Blood Count 3.57 #L Red Cell Distribution Width 15.5 H Sodium Level 141 White Blood Count 12.4 #H Bedside Glucose 171 192 185 Test 10/12/16 05:32 10/12/16 08:06 Bedside Glucose 124 138 Medications Medications Current Medications Ondansetron HCl (Zofran Inj) 4 mg Q6H PRN IV NAUSEA AND/OR VOMITING; Start at 21:30 Acetaminophen (Tylenol Tab) 650 mg Q6H PRN PO PAIN LEVEL 1-3 OR FEVER Last administered on 10/09/16t 22:22; Admin Dose 650 MG; Start 10/05/16 at 21:30 Acetaminophen/ Hydrocodone Bitart ([place] (5/325)) 1 tab Q6H PRN PO MODERATE PAIN LEVEL 4-6; Start 10/05/16 at 21:30 Morphine Sulfate (morphine) 2 mg Q4H PRN IV SEVERE PAIN LEVEL 7-10; Start 10/05 at 21:30 Docusate Sodium (Colace) 100 mg Q12H PRN PO CONSTIPATION; Start 10/05/16 at 21: 30 Magnesium Hydroxide (Milk Of Mag) 30 ml DAILY PRN PO CONSTIPATION; Start at 21:30 Sodium Biphosphate/ Sodium Phosphate (Fleet Enema) 133 ml DAILY PRN [place] CONSTIPATION; Start 10/05/16 at 21:30 Famotidine (Pepcid) 20 mg DAILY PO Last administered on 10/12/16 08:09; Admin Dose 20 MG; Start 10/06/16 at 09:00 Lorazepam (Ativan) 0.5 mg Q6H PRN IV ANXIETY Last administered on 10/06/16 15: 12; Admin Dose 0.5 MG; Start 10/05/16 at 21:30 Hydralazine HCl (Apresoline) 10 mg Q6H PRN IV ELEVATED SYSTOLIC BP Last administered on 10/07/16 05:23; Admin Dose 10 MG; Start 10/05/16 at 21:30 Clonidine (Catapres) 0.1 mg Q6H PRN PO ELEVATED SYSTOLIC BP; Start 10/05/16 at 21:30 Nitroglycerin (Nitroglycerin (Sl Tab) 0.4 Mg) 1 tab Q5M PRN SL ANGINA; Start at 21:30 Aspirin 325 mg 325 mg DAILY PO Last administered on 10/12/16 08:09; Admin Dose 325 MG; Start 10/06/16 at 09:00 Diltiazem HCl (Cardizem-D5W 125 Mg/125 ml Drip) 125 ml @ 5 mls/hr TITRATE IV ; Start 10/05/16 at 22:00 Diagnostic Test (Pha) (Accucheck) 1 ea 02 XX Last administered on 10/12/16 05: 36; Admin Dose 1 EA; Start 10/07/16 at 02:00 Zolpidem Tartrate (Ambien) 5 mg HS PRN PO INSOMNIA Last administered on 01:08; Admin Dose 5 MG; Start 10/06/16 at 01:00 Miscellaneous Information 1 ea NOTE XX ; Start 10/06/16 at 01:00 Glucose (Glutose) 15 gm Q15M PRN PO DECREASED GLUCOSE; Start 10/06/16 at 01:00 Glucose (Glutose) 22.5 gm Q15M PRN PO DECREASED GLUCOSE; Start 10/06/16 at 01: 00 Dextrose (D50w Syringe) 25 ml Q15M PRN IV DECREASED GLUCOSE; Start 10/06/16 at 01:00 Dextrose (D50w Syringe) 50 ml Q15M PRN IV DECREASED GLUCOSE; Start 10/06/16 at 01:00 Glucagon (Glucagen) 1 mg Q15M PRN IM DECREASED GLUCOSE; Start 10/06/16 at 01:00 Glucose (Glutose) 15 gm Q15M PRN BUCCAL DECREASED GLUCOSE; Start 10/06/16 at 01 :00 Cyanocobalamin (Vitamin B12) 1,000 mcg DAILY PO Last administered on 10/12/16 08:09; Admin Dose 1,000 MCG; Start 10/06/16 at 09:00 Folic Acid (Folic Acid) 0.8 mg DAILY PO Last administered on 10/12/16 08:10; Admin Dose 0.8 MG; Start 10/06/16 at 09:00 Triamcinolone Acetonide (Kenalog 0.1% Oint) 1 applic BID TOP Last administered on 10/12/16 08:19; Admin Dose 1 APPLIC; Start 10/06/16 at 09:00 Ferrous Sulfate (Slow Fe) 142 mg DAILY PO Last administered on 10/12/16 08:10 ; Admin Dose 142 MG; Start 10/07/16 at 09:00 Magnesium Oxide (Mag-Ox 400) 400 mg DAILY PO Last administered on 10/12/16 08: 10; Admin Dose 400 MG; Start 10/06/16 at 13:00 Clopidogrel Bisulfate (plaVIX) 75 mg DAILY PO Last administered on 10/12/16 08 :09; Admin Dose 75 MG; Start 10/06/16 at 12:00 Atorvastatin Calcium (Lipitor) 40 mg QHS PO Last administered on 10/11/16 20: 40; Admin Dose 40 MG; Start 10/06/16 at 21:00 Zolpidem Tartrate (Ambien) 10 mg QHS PRN PO INSOMNIA Last administered on 22:00; Admin Dose 10 MG; Start 10/06/16 at 16:30 Lorazepam (Ativan) 1 mg HS PO Last administered on 10/11/16 20:40; Admin Dose 1 MG; Start 10/07/16 at 21:00 Insulin Glargine (Lantus) 10 unit HS SC Last administered on 10/11/16 20:57; Admin Dose 10 UNIT; Start 10/07/16 at 21:00 Linagliptin (Tradjenta) 5 mg DAILY PO Last administered on 10/12/16 08:10; Admin Dose 5 MG; Start 10/07/16 at 17:00 Metoprolol Succinate (Toprol Xl) 25 mg BID PO Last administered on 10/12/16 08 :11; Admin Dose 25 MG; Start 10/07/16 at 21:00 Heparin Sodium (Porcine) (Heparin (5000 Units/0.5 ml)) 5,000 unit BID SC Last administered on 10/12/16 08:19; Admin Dose 5,000 UNIT; Start 10/10/16 at 12:00 Benazepril HCl (Lotensin) 40 mg QHS PO Last administered on 10/11/16 20:40; Admin Dose 40 MG; Start 10/10/16 at 21:00 Nifedipine 60 mg 60 mg QHS PO Last administered on 10/11/16 20:40; Admin Dose 60 MG; Start 10/10/16 at 21:00 Piperacillin Sod/ Tazobactam Sod (Zosyn 2.25gm/ 50ml (Pmx)) 50 ml @ 100 mls/hr Q8 IVPB Last administered on 10/12/16 05:42; Admin Dose 100 MLS/HR; Start at 11:00 AIYANA LANG Oct 12, 2016 10:09
--- NOTE | 2016-10-12 10:47 | PN ---
DATE: 10/12/2016 SUBJECTIVE: The patient is stable, no acute events overnight. No hemoptysis, hematemesis or hemato chezia. OBJECTIVE: VITAL SIGNS: Blood pressure 152/69, respirations 16, pulse 62, temperature 98.2. HEENT: Head is normocephalic. NECK: Supple. HEART: Regular rate. LUNGS: Show diminished breath sounds at the base. ABDOMEN: Soft, nontender to palpation. No rebound or guarding. EXTREMITIES: Negative for clubbing, cyanosis. No edema. DERMATOLOGIC: No rashes. MUSCULOSKELETAL: No joint effusions. NEUROLOGIC: No change in exam. MEDICATIONS: Patient's medication have been reviewed. LABORATORY DATA: Shows white count 12.4, hemoglobin 9.6, hematocrit 31.4, platelet count 283. The patient's BNP is pending. ASSESSMENT AND PLAN: 1. End-stage renal disease. The patient is on dialysis Monday, Monday, Monday. Plan for hemodi alysis today for 3 hours on 3 K bath, calcium 2.5, will ultrafiltrate as tolerated. 2. Acute congestive heart failure exacerbation/volume overload. The patient is clinically improvin g. We will continue ultrafiltration with dialysis nearing euvolemic status. 3. Anemia of chronic disease. Continue to monitor hemoglobin and hematocrit levels. We will give Epogen following dialysis. 4. Atrial fibrillation, currently in sinus rhythm. Continue medical management. 5. Sepsis secondary to pneumonia. Continue antibiotic regimen. 6. Non-ST elevation myocardial infarction type 2. Continue medical management. 7. Diabetes, continue Accu-Cheks and sliding scale. 8. Acute hypoxemic respiratory failure secondary to pneumonia, volume overload, clinically improvin g. The patient is currently on room air. 9. Coronary disease/cardiomyopathy. The patient has had a recent PCI at outside hospital, possible recatheterization during this hospital course. We will defer to cardiology. Continue medical manag ement. Dictated By: NOEMI BOTELLO/CHANTALE Conf#: [id number] DID#: [id number]
[2016-10-12 10:48] LABS: ADD SCAN DIFF NO
[2016-10-12 10:53] LABS: BASOPHIL # 0.1 10^3/ul (0.0-0.1); BASOPHILS % 0.6 % (0.0-2.0); EOSINOPHILS # 0.3 10^3/ul (0.0-0.5); EOSINOPHILS % 3.5 % (0.0-7.0); HEMATOCRIT 27.1 % (42.0-52.0); HEMOGLOBIN 8.5 g/dl (14.0-18.0); LYMPHOCYTES # 1.7 10^3/ul (0.8-2.9); LYMPHOCYTES % 19.8 % (15.0-51.0); MEAN CORPUSCULAR HGB CONC 31.4 g/dl (32.0-37.0); MONOCYTE # 0.7 10^3/ul (0.3-0.9); MONOCYTES % 8.7 % (0.0-11.0); NEUTROPHIL # 5.6 10^3/ul (1.6-7.5); PLATELET COUNT 247 10^3/UL (140-415); RED BLOOD COUNT 3.15 10^6/ul (4.70-6.10); RED CELL DISTRIBUTION WIDTH 15.6 % (11.5-14.5); WHITE BLOOD COUNT 8.4 10^3/ul (4.8-10.8)
[2016-10-12 11:04] LABS: POTASSIUM 4.5 mmol/L (3.5-5.1)
[2016-10-12 11:06] LABS: CREATININE 6.31 mg/dl (0.61-1.24)
[2016-10-12 11:07] LABS: CALCIUM 8.6 mg/dl (8.4-10.2)
--- NOTE | 2016-10-12 11:18 | PN ---
Date/Time of Note Date/Time of Note DATE: 10/12/16 TIME: 11:16 Assessment/Plan VTE Prophylaxis VTE Prophylaxis Intervention: heparin Lines/Catheters IV Catheter Type (from Nrs): [place] Urinary Cath still in place: No Assessment/Plan Assessment/Plan 1. Acute respiratory distress secondary to volume overload with underlying end- stage renal disease and congestive heart failure, improved. 2. Atrial fibrillation with rapid ventricular response, converted back to sinus now rate controlled 3. ?Troponin elevation of uncertain significance 4. End-stage renal disease on hemodialysis. 5. History of diabetes mellitus type 2. Hemoglobin 6.3. 6. Anemia of chronic disease. 7. Known coronary artery disease with history of PTCA and stent placement at [facility]. 8. Hypertensive urgency, resolved. 9. Acute on chronic systolic congestive heart failure with ejection fraction of 25%. PLAN: * continue current mgt * Cardiology still awaiting complete cath report from [place], this important to see if patient's reduced EF can be corrected via PCI. * C planned for tomorrow am * Repeat blood cultures / empiric abx to cover for PNA as well * Continue current supportive care. * Prophylaxis: Heparin / pepcid Subjective 24 Hr Interval Summary Constitutional: no complaints Cardiovascular: No chest pain Exam/Review of Systems Vital Signs Vitals Vital Signs Date Time Temp Pulse Resp B/P Pulse Ox O2 Delivery O2 Flow Rate FiO2 10/12/16 08:04 66 10/12/16 07:19 98.2 16 152/69 96 10/09/16 22:10 Room Air 10/09/16 17:33 2.0 Intake and Output 10/11/16 10/11/16 10/12/16 15:00 23:00 07:00 Intake Total 750 ml 150 ml Balance 750 ml 150 ml Exam Constitutional: alert, frail, oriented, No distress Psych: anxiety Head: normocephalic Eyes: PERRL Neck: non-tender Respiratory: clear to auscultation, diminished breath sounds Cardiovascular: murmurs/extra sounds, regular rate and rhythm Gastrointestinal: bowel sounds, non-tender, soft Extremities: No edema Neurological: nl mental status, nl speech Results Result Diagram: 10/12/16 1012 10/12/16 1012 Results 24 hrs Laboratory Tests Test 10/11/16 11:30 10/11/16 11:37 10/11/16 16:46 10/11/16 19:56 Anion Gap 20 H Basophils # 0.0 Basophils % 0.3 Blood Urea Nitrogen 39 H Calcium Level 9.0 Carbon Dioxide Level 30 Chloride Level 96 L Creatinine 5.36 H Eosinophils # 0.2 Eosinophils % 1.4 Glucose Level 168 Hematocrit 31.4 #L Hemoglobin 9.6 #L Lymphocytes # 1.6 Lymphocytes % 13.2 L Magnesium Level 2.2 Mean Corpuscular Hemoglobin 26.9 L Mean Corpuscular Hemoglobin Concent 30.6 L Mean Corpuscular Volume 88.0 Mean Platelet Volume 10.7 H Monocytes # 0.9 Monocytes % 7.3 Neutrophils # 9.6 H Neutrophils % 77.5 H Nucleated Red Blood Cells # 0.0 Nucleated Red Blood Cells % 0.0 Platelet Count 283 Potassium Level 4.6 Red Blood Count 3.57 #L Red Cell Distribution Width 15.5 H Sodium Level 141 White Blood Count 12.4 #H Bedside Glucose 171 192 185 Test 10/12/16 05:32 10/12/16 08:06 10/12/16 10:12 Bedside Glucose 124 138 Anion Gap 20 H Basophils # 0.1 Basophils % 0.6 Blood Urea Nitrogen 56 H Calcium Level 8.6 Carbon Dioxide Level 27 Chloride Level 95 L Creatinine 6.31 H Eosinophils # 0.3 Eosinophils % 3.5 Glucose Level 148 Hematocrit 27.1 L Hemoglobin 8.5 L Lymphocytes # 1.7 Lymphocytes % 19.8 Mean Corpuscular Hemoglobin 27.0 L Mean Corpuscular Hemoglobin Concent 31.4 L Mean Corpuscular Volume 86.0 Mean Platelet Volume 11.0 H Monocytes # 0.7 Monocytes % 8.7 Neutrophils # 5.6 Neutrophils % 67.0 Nucleated Red Blood Cells # 0.0 Nucleated Red Blood Cells % 0.0 Platelet Count 247 Potassium Level 4.5 Red Blood Count 3.15 L Red Cell Distribution Width 15.6 H Sodium Level 137 White Blood Count 8.4 # Medications Medications Current Medications Ondansetron HCl (Zofran Inj) 4 mg Q6H PRN IV NAUSEA AND/OR VOMITING; Start at 21:30 Acetaminophen (Tylenol Tab) 650 mg Q6H PRN PO PAIN LEVEL 1-3 OR FEVER Last administered on 10/09/16t 22:22; Admin Dose 650 MG; Start 10/05/16 at 21:30 Acetaminophen/ Hydrocodone Bitart ([place] (5/325)) 1 tab Q6H PRN PO MODERATE PAIN LEVEL 4-6; Start 10/05/16 at 21:30 Morphine Sulfate (morphine) 2 mg Q4H PRN IV SEVERE PAIN LEVEL 7-10; Start 10/05 at 21:30 Docusate Sodium (Colace) 100 mg Q12H PRN PO CONSTIPATION; Start 10/05/16 at 21: 30 Magnesium Hydroxide (Milk Of Mag) 30 ml DAILY PRN PO CONSTIPATION; Start at 21:30 Sodium Biphosphate/ Sodium Phosphate (Fleet Enema) 133 ml DAILY PRN [place] CONSTIPATION; Start 10/05/16 at 21:30 Famotidine (Pepcid) 20 mg DAILY PO Last administered on 10/12/16 08:09; Admin Dose 20 MG; Start 10/06/16 at 09:00 Lorazepam (Ativan) 0.5 mg Q6H PRN IV ANXIETY Last administered on 10/06/16 15: 12; Admin Dose 0.5 MG; Start 10/05/16 at 21:30 Hydralazine HCl (Apresoline) 10 mg Q6H PRN IV ELEVATED SYSTOLIC BP Last administered on 10/07/16 05:23; Admin Dose 10 MG; Start 10/05/16 at 21:30 Clonidine (Catapres) 0.1 mg Q6H PRN PO ELEVATED SYSTOLIC BP; Start 10/05/16 at 21:30 Nitroglycerin (Nitroglycerin (Sl Tab) 0.4 Mg) 1 tab Q5M PRN SL ANGINA; Start at 21:30 Aspirin 325 mg 325 mg DAILY PO Last administered on 10/12/16 08:09; Admin Dose 325 MG; Start 10/06/16 at 09:00 Diltiazem HCl (Cardizem-D5W 125 Mg/125 ml Drip) 125 ml @ 5 mls/hr TITRATE IV ; Start 10/05/16 at 22:00 Diagnostic Test (Pha) (Accucheck) 1 ea 02 XX Last administered on 10/12/16 05: 36; Admin Dose 1 EA; Start 10/07/16 at 02:00 Zolpidem Tartrate (Ambien) 5 mg HS PRN PO INSOMNIA Last administered on 01:08; Admin Dose 5 MG; Start 10/06/16 at 01:00 Miscellaneous Information 1 ea NOTE XX ; Start 10/06/16 at 01:00 Glucose (Glutose) 15 gm Q15M PRN PO DECREASED GLUCOSE; Start 10/06/16 at 01:00 Glucose (Glutose) 22.5 gm Q15M PRN PO DECREASED GLUCOSE; Start 10/06/16 at 01: 00 Dextrose (D50w Syringe) 25 ml Q15M PRN IV DECREASED GLUCOSE; Start 10/06/16 at 01:00 Dextrose (D50w Syringe) 50 ml Q15M PRN IV DECREASED GLUCOSE; Start 10/06/16 at 01:00 Glucagon (Glucagen) 1 mg Q15M PRN IM DECREASED GLUCOSE; Start 10/06/16 at 01:00 Glucose (Glutose) 15 gm Q15M PRN BUCCAL DECREASED GLUCOSE; Start 10/06/16 at 01 :00 Cyanocobalamin (Vitamin B12) 1,000 mcg DAILY PO Last administered on 10/12/16 08:09; Admin Dose 1,000 MCG; Start 10/06/16 at 09:00 Folic Acid (Folic Acid) 0.8 mg DAILY PO Last administered on 10/12/16 08:10; Admin Dose 0.8 MG; Start 10/06/16 at 09:00 Triamcinolone Acetonide (Kenalog 0.1% Oint) 1 applic BID TOP Last administered on 10/12/16 08:19; Admin Dose 1 APPLIC; Start 10/06/16 at 09:00 Ferrous Sulfate (Slow Fe) 142 mg DAILY PO Last administered on 10/12/16 08:10 ; Admin Dose 142 MG; Start 10/07/16 at 09:00 Magnesium Oxide (Mag-Ox 400) 400 mg DAILY PO Last administered on 10/12/16 08: 10; Admin Dose 400 MG; Start 10/06/16 at 13:00 Clopidogrel Bisulfate (plaVIX) 75 mg DAILY PO Last administered on 10/12/16 08 :09; Admin Dose 75 MG; Start 10/06/16 at 12:00 Atorvastatin Calcium (Lipitor) 40 mg QHS PO Last administered on 10/11/16 20: 40; Admin Dose 40 MG; Start 10/06/16 at 21:00 Zolpidem Tartrate (Ambien) 10 mg QHS PRN PO INSOMNIA Last administered on 22:00; Admin Dose 10 MG; Start 10/06/16 at 16:30 Lorazepam (Ativan) 1 mg HS PO Last administered on 10/11/16 20:40; Admin Dose 1 MG; Start 10/07/16 at 21:00 Insulin Glargine (Lantus) 10 unit HS SC Last administered on 10/11/16 20:57; Admin Dose 10 UNIT; Start 10/07/16 at 21:00 Linagliptin (Tradjenta) 5 mg DAILY PO Last administered on 10/12/16 08:10; Admin Dose 5 MG; Start 10/07/16 at 17:00 Metoprolol Succinate (Toprol Xl) 25 mg BID PO Last administered on 10/12/16 08 :11; Admin Dose 25 MG; Start 10/07/16 at 21:00 Heparin Sodium (Porcine) (Heparin (5000 Units/0.5 ml)) 5,000 unit BID SC Last administered on 10/12/16 08:19; Admin Dose 5,000 UNIT; Start 10/10/16 at 12:00 Benazepril HCl (Lotensin) 40 mg QHS PO Last administered on 10/11/16 20:40; Admin Dose 40 MG; Start 10/10/16 at 21:00 Nifedipine 60 mg 60 mg QHS PO Last administered on 10/11/16 20:40; Admin Dose 60 MG; Start 10/10/16 at 21:00 Piperacillin Sod/ Tazobactam Sod (Zosyn 2.25gm/ 50ml (Pmx)) 50 ml @ 100 mls/hr Q8 IVPB Last administered on 10/12/16 05:42; Admin Dose 100 MLS/HR; Start at 11:00 Diazepam (Valium) 5 mg OC ONCE PO ; Start 10/13/16 at 06:00; Stop 10/13/16 at 06:01 Diphenhydramine HCl (Benadryl) 50 mg OC ONCE PO ; Start 10/13/16 at 06:00; Stop 10/13/16 at 06:01 XANDER ROCHA Oct 12, 2016 11:18
[2016-10-12] MEDS: hydrALAzine 20 MG INJ IV PRN (15:07)
[2016-10-12] MEDS: ACETAMINOPHEN 325 MG TAB PO PRN (18:00)
[2016-10-12] MEDS: BENAZEPRIL 40 MG TAB PO SCH (20:50)
[2016-10-12] MEDS: ATORVASTATIN 40 MG TAB PO SCH (20:50)
[2016-10-12] MEDS: NIFEdipine (XL) 60 MG TAB PO SCH (20:50)
[2016-10-12] MEDS: LORAZEPAM 0.5 MG TAB PO SCH (20:51)
[2016-10-12] MEDS: INSULIN GLARGINE [LANtus] 3 ML PEN SC SCH (21:08)
[2016-10-13] VITALS (20 sets, daily range): BP systolic 115–149; BP diastolic 59–76; PULSE 64–77; RESP 12–20
[2016-10-13] MEDS: ACCU-CHEK XX SCH (02:00)
[2016-10-13 05:33] LABS: ADD SCAN DIFF NO
[2016-10-13 05:47] LABS: INR 1.1; PROTIME 14.2 Sec (12.2-14.2); PT RATIO 1.1
[2016-10-13] MEDS ORDERED: DIAZEPAM 5 MG TAB PO ONE (06:00)
[2016-10-13] MEDS ORDERED: DIPHENHYDRAMINE 50 MG CAP PO ONE (06:00)
[2016-10-13 06:03] LABS: BASOPHIL # 0.1 10^3/ul (0.0-0.1); BASOPHILS % 0.3 % (0.0-2.0); EOSINOPHILS # 0.1 10^3/ul (0.0-0.5); EOSINOPHILS % 0.3 % (0.0-7.0); HEMATOCRIT 26.7 % (42.0-52.0); HEMOGLOBIN 8.2 g/dl (14.0-18.0); LYMPHOCYTES # 1.6 10^3/ul (0.8-2.9); LYMPHOCYTES % 8.1 % (15.0-51.0); MEAN CORPUSCULAR HEMOGLOBIN 26.5 pg (29.0-33.0); MEAN CORPUSCULAR HGB CONC 30.7 g/dl (32.0-37.0); MEAN CORPUSCULAR VOLUME 86.4 fl (82.0-101.0); MEAN PLATELET VOLUME 11.1 fl (7.4-10.4); MONOCYTE # 1.2 10^3/ul (0.3-0.9); MONOCYTES % 6.3 % (0.0-11.0); NEUTROPHIL # 16.3 10^3/ul (1.6-7.5); NEUTROPHILS % 84.2 % (39.0-77.0); PLATELET COUNT 251 10^3/UL (140-415); RED BLOOD COUNT 3.09 10^6/ul (4.70-6.10); RED CELL DISTRIBUTION WIDTH 15.9 % (11.5-14.5); WHITE BLOOD COUNT 19.3 10^3/ul (4.8-10.8)
[2016-10-13] MEDS: PIPER-TAZO 2.25 GM (PMX) 50 ML IVPB SCH ×3 (06:10→22:52)
--- NOTE | 2016-10-13 06:51 | RADRPT ---
PROCEDURE: XR Chest. CLINICAL INDICATION: CHF, fever TECHNIQUE: An AP view of the chest was obtained. COMPARISON: Chest x-ray dated 10/09/2016 FINDINGS: There is a right chest Perma-Cath with tip near the cavoatrial junction. There is prominence of the interstitial and central pulmonary vascular markings with small bilatera l pleural effusions. No focal airspace opacification or pneumothorax is seen. The cardiomediastin al silhouette is mildly enlarged . Calcifications are seen within the aortic arch. The osseous str uctures demonstrate senescent changes. IMPRESSION: 1. Findings suggestive of pulmonary vascular congestion with small bilateral pleural effusions. Tavia ng aeration is significantly improved when compared to the prior examination. 2. Mild cardiomegaly and aortic atherosclerosis. 3. Right chest Perma-Cath with tip near the cavoatrial junction. RPTAT: HH .Awa Lemos MD, MD Date Time Electronically viewed and signed by .Awa Lemos MD, MD on 10/13/2016 06:51 .G/
[2016-10-13 07:01] LABS: POTASSIUM 4.3 mmol/L (3.5-5.1)
[2016-10-13 07:04] LABS: CREATININE 4.89 mg/dl (0.61-1.24)
[2016-10-13 07:05] LABS: CALCIUM 8.6 mg/dl (8.4-10.2)
[2016-10-13] MEDS ORDERED: IODIXANOL LOCM 100 ML BTL ONE ×2 (07:37→09:19)
[2016-10-13] MEDS ORDERED: LIDOCAINE 1% (MDV) 20 ML INJ ONE (07:37)
[2016-10-13] MEDS: INSULIN ASPART [NOVOLOG] 3 ML PEN SC SCH ×4 (07:55→21:00)
[2016-10-13] MEDS: ASPIRIN (EC) 325 MG TAB PO SCH ×2 (08:24→08:31)
[2016-10-13] MEDS ORDERED: MIDAZOLAM 1 MG/ML 2 ML INJ ONE (08:27)
[2016-10-13] MEDS ORDERED: FENTAnyl 50 MCG/ML VIAL ONE (08:27)
[2016-10-13] MEDS: CLOPIDOGREL 75 MG TAB PO SCH (08:28)
[2016-10-13] MEDS: FAMOTIDINE 20 MG TAB PO SCH (08:28)
[2016-10-13] MEDS: FERROUS SULFATE (SR) 142 MG TAB PO SCH (08:28)
[2016-10-13] MEDS: MAGNESIUM OXIDE 400 MG TAB PO SCH (08:29)
[2016-10-13] MEDS: CYANOCOBALAMIN 500 MCG TAB PO SCH (08:30)
[2016-10-13] MEDS: METOPROLOL (XL) 25 MG TAB PO SCH ×2 (08:30→21:38)
[2016-10-13] MEDS: LINAGLIPTIN 5 MG TABLET PO SCH (08:30)
[2016-10-13] MEDS: FOLIC ACID 0.4 MG TAB PO SCH (08:37)
[2016-10-13] MEDS: TRIAMCINOLONE ACET 0.1% 15 GM OINT TOP SCH ×2 (09:00→21:44)
[2016-10-13] MEDS: HEPARIN 5,000 UNIT/0.5 ML SYG SC SCH ×2 (09:00→21:34)
[2016-10-13] MEDS ORDERED: DEXTROSE 5%-0.45% NACL 1,000 ML IV ONE (09:19)
--- NOTE | 2016-10-13 10:56 | PN ---
DATE: 10/13/2016 SUBJECTIVE: The patient is stable. Had hemodialysis yesterday, with 2 liters removed. The patient is scheduled for cardiac catheterization this morning. No other events noted. OBJECTIVE: VITAL SIGNS: Blood pressure is 117/62, respirations 19, pulse 70, temperature 98.5. HEENT: Head is normocephalic. NECK: Supple. HEART: Regular rate. LUNGS: Showed diminished breath sounds at the base. ABDOMEN: Soft, nontender to palpation. No rebound or guarding. EXTREMITIES: Negative for clubbing or cyanosis. No edema. DERMATOLOGIC: No rashes. MUSCULOSKELETAL: Have no joint effusion. NEUROLOGIC: No change in exam. MEDICATIONS: The patient's medications have been reviewed. LABORATORY DATA: Shows sodium 137, potassium 4.3, chloride 95, BUN 42, creatinine 4.89. White coun t 19.3, hemoglobin 8.2, hematocrit 26.7, platelet count 251. ASSESSMENT AND PLAN: 1. End-stage renal disease. The patient is on dialysis Monday, Monday and Monday, had hemodialy sis yesterday and tolerated it well. Plan for dialysis tomorrow for 3 hours on a 3K bath, calcium 2 .5. 2. Acute congestive heart failure with an ejection fraction of 25%. This may be secondary to ische jennifer cardiomyopathy. The patient is pending possible cardiac catheterization this morning for furthe r evaluation. Will continue ultrafiltration dialysis. 3. Anemia of chronic disease. Continue to monitor hemoglobin and hematocrit levels. Continue Epog en. 4. Atrial fibrillation. Currently in sinus rhythm. Continue medical management. 5. Coronary artery disease. As stated above, the patient is pending cardiac catheterization. Will follow up with cardiology recommendations. 6. Non-ST elevation myocardial infarction. Continue medical management. 7. Diabetes. Continue Accu-Cheks and insulin sliding scale. 8. Respiratory failure secondary to volume overload and pneumonia. The patient is clinically impro ving. Will continue to monitor. Continue supportive care. Dictated By: NOEMI BOTELLO/CHANTALE Conf#: [id number] DID#: [id number]
[2016-10-13] MEDS ORDERED: ONDANSETRON 4 MG INJ IV PRN (11:00)
[2016-10-13] MEDS ORDERED: morphine 2 MG INJ IV PRN (11:00)
[2016-10-13] MEDS ORDERED: AL HYDROX/MG HYDROX/SIMETH 30 ML CUP PO PRN (11:00)
--- NOTE | 2016-10-13 11:26 | CONS ---
Date/Time of Note Date/Time of Note DATE: 10/13/16 TIME: 11:22 Assessment/Plan Assessment/Plan Chief Complaint/Hosp Course IMPRESSION: 1. Atrial fibrillation with rapid ventricular response-now rate controlled 2. Abnormal electrocardiogram with inferolateral ST depressions. 3. Positive troponin, assess significance. 4. Cardiomyopathy, decreased left ventricular ejection fraction last approximately 45% by outside hospital paperwork at [facility] 09/09. Now approx 25% by echo here 5. History of PTCA and stent placement at [facility] recently.-per notes had PCI at [facility](08/2016)after being thought to be poor surgical candidate but cath report not sent from [facility]. Had originally transferred from [facility] where was cathed and found to have 3VD after suffering GA.-Now s/p C today with moderate disease of distal LMN and mid LAD but otherwise patent vessels and stents 6. Renal failure. 7. Hypertension. 8. Shortness of breath. 9. Generalized weakness. 10. Diabetes mellitus. 11. Anemia. 12.CHF-systolic acute on chronic Recc: -Tele -Continue BB/ACEI/CCB -Continue asa/plavix/statin -HD for volume removal. -SQ heparin -S/P C today without need for further intervention at this time. -D/C planning if patient asmptomatic Problems: Consultation Date/Type/Reason Admit Date/Time Oct 05, 2016 at 21:04 Initial Consult Date 10/06/2016 Type of Consultation: Cardiology Reason for Consultation CHF/cardiomyopathy Referring Provider: JANAE ELDRIDGE Exam/Review of Systems Vital Signs Vitals Vital Signs Date Time Temp Pulse Resp B/P Pulse Ox O2 Delivery O2 Flow Rate FiO2 10/13/16 10:45 2.0 10/13/16 08:00 74 10/13/16 07:11 98.5 19 117/62 99 10/09/16 22:10 Room Air Intake and Output 10/12/16 10/12/16 10/13/16 15:00 23:00 07:00 Intake Total 550 ml 410 ml 150 ml Output Total 2700 ml Balance -2150 ml 410 ml 150 ml Exam Review of Systems: CONSTITUTIONAL: No fevers, chills. PULMONARY: mild sob CARDIOVASCULAR: No chest pain/palpitations GASTROINTESTINAL: No nausea/vomiting. GENITOURINARY: No hematuria/dysuria. MUSCULOSKELETAL: No myagias/arthalgias. PSYCHIATRIC: The patient denies depression. NEUROLOGIC: No weakness Constitutional: alert Psych: no complaints Head: normocephalic ENMT: mucosa pink and moist Neck: jvd (9 cm water), supple Respiratory: diminished breath sounds (at bases/B) Cardiovascular: regular rate and rhythm Gastrointestinal: non-tender, soft Musculoskeletal: muscle tone Extremities: other (No focal deficits) Results Result Diagram: 10/13/16 0501 10/13/16 0501 Results 24 hrs Laboratory Tests Test 10/12/16 11:32 10/12/16 16:40 10/12/16 20:48 10/13/16 05:01 Bedside Glucose 165 154 164 White Blood Count 19.3 #H Red Blood Count 3.09 L Hemoglobin 8.2 L Hematocrit 26.7 L Mean Corpuscular Volume 86.4 Mean Corpuscular Hemoglobin 26.5 L Mean Corpuscular Hemoglobin Concent 30.7 L Red Cell Distribution Width 15.9 H Platelet Count 251 Mean Platelet Volume 11.1 H Neutrophils % 84.2 H Lymphocytes % 8.1 L Monocytes % 6.3 Eosinophils % 0.3 Basophils % 0.3 Nucleated Red Blood Cells % 0.0 Neutrophils # 16.3 H Lymphocytes # 1.6 Monocytes # 1.2 H Eosinophils # 0.1 Basophils # 0.1 Nucleated Red Blood Cells # 0.0 Prothrombin Time 14.2 Prothrombin Time Ratio 1.1 INR International Normalized Ratio 1.10 Sodium Level 137 Potassium Level 4.3 Chloride Level 95 L Carbon Dioxide Level 27 Anion Gap 19 H Blood Urea Nitrogen 42 #H Creatinine 4.89 #H Glucose Level 65 #L Calcium Level 8.6 Random Vancomycin Level 12.4 Test 10/13/16 08:42 10/13/16 10:48 Bedside Glucose 59 L 67 L Medications Medications Current Medications Ondansetron HCl (Zofran Inj) 4 mg Q6H PRN IV NAUSEA AND/OR VOMITING; Start at 21:30 Acetaminophen (Tylenol Tab) 650 mg Q6H PRN PO PAIN LEVEL 1-3 OR FEVER Last administered on 10/12/16t 18:00; Admin Dose 650 MG; Start 10/05/16 at 21:30 Acetaminophen/ Hydrocodone Bitart ([place] (5/325)) 1 tab Q6H PRN PO MODERATE PAIN LEVEL 4-6; Start 10/05/16 at 21:30 Morphine Sulfate (morphine) 2 mg Q4H PRN IV SEVERE PAIN LEVEL 7-10; Start 10/05 at 21:30 Docusate Sodium (Colace) 100 mg Q12H PRN PO CONSTIPATION; Start 10/05/16 at 21: 30 Magnesium Hydroxide (Milk Of Mag) 30 ml DAILY PRN PO CONSTIPATION; Start at 21:30 Sodium Biphosphate/ Sodium Phosphate (Fleet Enema) 133 ml DAILY PRN [place] CONSTIPATION; Start 10/05/16 at 21:30 Famotidine (Pepcid) 20 mg DAILY PO Last administered on 10/13/16 08:28; Admin Dose 20 MG; Start 10/06/16 at 09:00 Lorazepam (Ativan) 0.5 mg Q6H PRN IV ANXIETY Last administered on 10/06/16 15: 12; Admin Dose 0.5 MG; Start 10/05/16 at 21:30 Hydralazine HCl (Apresoline) 10 mg Q6H PRN IV ELEVATED SYSTOLIC BP Last administered on 10/12/16 15:07; Admin Dose 10 MG; Start 10/05/16 at 21:30 Clonidine (Catapres) 0.1 mg Q6H PRN PO ELEVATED SYSTOLIC BP; Start 10/05/16 at 21:30 Nitroglycerin (Nitroglycerin (Sl Tab) 0.4 Mg) 1 tab Q5M PRN SL ANGINA; Start at 21:30 Aspirin 325 mg 325 mg DAILY PO Last administered on 10/13/16 08:31; Admin Dose 325 MG; Start 10/06/16 at 09:00 Diltiazem HCl (Cardizem-D5W 125 Mg/125 ml Drip) 125 ml @ 5 mls/hr TITRATE IV ; Start 10/05/16 at 22:00 Diagnostic Test (Pha) (Accucheck) 1 ea 02 XX Last administered on 10/12/16 05: 36; Admin Dose 1 EA; Start 10/07/16 at 02:00 Zolpidem Tartrate (Ambien) 5 mg HS PRN PO INSOMNIA Last administered on 01:08; Admin Dose 5 MG; Start 10/06/16 at 01:00 Miscellaneous Information 1 ea NOTE XX ; Start 10/06/16 at 01:00 Glucose (Glutose) 15 gm Q15M PRN PO DECREASED GLUCOSE; Start 10/06/16 at 01:00 Glucose (Glutose) 22.5 gm Q15M PRN PO DECREASED GLUCOSE; Start 10/06/16 at 01: 00 Dextrose (D50w Syringe) 25 ml Q15M PRN IV DECREASED GLUCOSE; Start 10/06/16 at 01:00 Dextrose (D50w Syringe) 50 ml Q15M PRN IV DECREASED GLUCOSE; Start 10/06/16 at 01:00 Glucagon (Glucagen) 1 mg Q15M PRN IM DECREASED GLUCOSE; Start 10/06/16 at 01:00 Glucose (Glutose) 15 gm Q15M PRN BUCCAL DECREASED GLUCOSE; Start 10/06/16 at 01 :00 Cyanocobalamin (Vitamin B12) 1,000 mcg DAILY PO Last administered on 10/13/16 08:30; Admin Dose 1,000 MCG; Start 10/06/16 at 09:00 Folic Acid (Folic Acid) 0.8 mg DAILY PO Last administered on 10/13/16 08:37; Admin Dose 0.8 MG; Start 10/06/16 at 09:00 Triamcinolone Acetonide (Kenalog 0.1% Oint) 1 applic BID TOP Last administered on 10/12/16 22:04; Admin Dose 1 APPLIC; Start 10/06/16 at 09:00 Ferrous Sulfate (Slow Fe) 142 mg DAILY PO Last administered on 10/13/16 08:28 ; Admin Dose 142 MG; Start 10/07/16 at 09:00 Magnesium Oxide (Mag-Ox 400) 400 mg DAILY PO Last administered on 10/13/16 08: 29; Admin Dose 400 MG; Start 10/06/16 at 13:00 Clopidogrel Bisulfate (plaVIX) 75 mg DAILY PO Last administered on 10/13/16 08 :28; Admin Dose 75 MG; Start 10/06/16 at 12:00 Atorvastatin Calcium (Lipitor) 40 mg QHS PO Last administered on 10/12/16 20: 50; Admin Dose 40 MG; Start 10/06/16 at 21:00 Zolpidem Tartrate (Ambien) 10 mg QHS PRN PO INSOMNIA Last administered on 22:00; Admin Dose 10 MG; Start 10/06/16 at 16:30 Lorazepam (Ativan) 1 mg HS PO Last administered on 10/12/16 20:51; Admin Dose 1 MG; Start 10/07/16 at 21:00 Insulin Glargine (Lantus) 10 unit HS SC Last administered on 10/12/16 21:08; Admin Dose 10 UNIT; Start 10/07/16 at 21:00 Linagliptin (Tradjenta) 5 mg DAILY PO Last administered on 10/13/16 08:30; Admin Dose 5 MG; Start 10/07/16 at 17:00 Metoprolol Succinate (Toprol Xl) 25 mg BID PO Last administered on 10/13/16 08 :30; Admin Dose 25 MG; Start 10/07/16 at 21:00 Heparin Sodium (Porcine) (Heparin (5000 Units/0.5 ml)) 5,000 unit BID SC Last administered on 10/12/16 21:09; Admin Dose 5,000 UNIT; Start 10/10/16 at 12:00 Benazepril HCl (Lotensin) 40 mg QHS PO Last administered on 10/12/16 20:50; Admin Dose 40 MG; Start 10/10/16 at 21:00 Nifedipine 60 mg 60 mg QHS PO Last administered on 10/12/16 20:50; Admin Dose 60 MG; Start 10/10/16 at 21:00 Piperacillin Sod/ Tazobactam Sod (Zosyn 2.25gm/ 50ml (Pmx)) 50 ml @ 100 mls/hr Q8 IVPB Last administered on 10/13/16 06:10; Admin Dose 100 MLS/HR; Start at 11:00 Acetaminophen (Tylenol Tab) 650 mg Q4H PRN PO NON-CARDIAC PAIN LEVEL (1-3); Start 10/13/16 at 11:00 Morphine Sulfate (morphine) 2 mg Q2H PRN IV FOR NON CARDIAC PAIN (4-10); Start 10/13/16 at 11:00 Al Hydrox/Mg Hydrox/Simethicone (Mag-Al Plus) 30 ml Q4H PRN PO GASTROINTESTINAL UPSET; Start 10/13/16 at 11:00 Ondansetron HCl (Zofran Inj) 4 mg Q4H PRN IV NAUSEA AND/OR VOMITING; Start at 11:00 AIYANA LANG Oct 13, 2016 11:26
--- NOTE | 2016-10-13 12:18 | PN ---
Date/Time of Note Date/Time of Note DATE: 10/13/16 TIME: 12:14 Assessment/Plan VTE Prophylaxis VTE Prophylaxis Intervention: heparin Lines/Catheters IV C[facility] Type [facility]from [facility] Peripheral IV Urinary Cath still in place: No Assessment/Plan Assessment/Plan 1. Acute respiratory distress secondary to volume overload with underlying end -stage renal disease and congestive heart failure, improved. 2. Atrial fibrillation with rapid ventricular response, converted back to sinus now rate controlled 3. ?Troponin elevation of uncertain significance 4. End-stage renal disease on hemodialysis. 5. History of diabetes mellitus type 2. Hemoglobin 6.3. 6. Anemia of chronic disease. 7. Known coronary artery disease with history of PTCA and stent placement at [facility]. 8. Hypertensive urgency, resolved. 9. Acute on chronic systolic congestive heart failure with ejection fraction of 25% from 45% 10. Gram negative kait bacteremia PLAN: * continue current mgt * Continue current abx * Continue current supportive care. * Prophylaxis: Heparin / pepcid Exam/Review of Systems Vital Signs Vitals Vital Signs Date Time Temp Pulse Resp B/P Pulse Ox O2 Delivery O2 Flow Rate FiO2 10/13/16 11:42 64 14 144/73 99 Nasal Cannula 2.0 10/13/16 10:57 98.0 Intake and Output 10/12/16 10/12/16 10/13/16 14:59 22:59 06:59 Intake Total 50 ml 910 ml 150 ml Output Total 2700 ml Balance 50 ml -1790 ml 150 ml Results Result Diagram: 10/13/16 0501 10/13/16 0501 Results 24 hrs Laboratory Tests Test 10/12/16 16:40 10/12/16 20:48 10/13/16 05:01 10/13/16 08:42 Bedside Glucose 154 164 59 L White Blood Count 19.3 #H Red Blood Count 3.09 L Hemoglobin 8.2 L Hematocrit 26.7 L Mean Corpuscular Volume 86.4 Mean Corpuscular Hemoglobin 26.5 L Mean Corpuscular Hemoglobin Concent 30.7 L Red Cell Distribution Width 15.9 H Platelet Count 251 Mean Platelet Volume 11.1 H Neutrophils % 84.2 H Lymphocytes % 8.1 L Monocytes % 6.3 Eosinophils % 0.3 Basophils % 0.3 Nucleated Red Blood Cells % 0.0 Neutrophils # 16.3 H Lymphocytes # 1.6 Monocytes # 1.2 H Eosinophils # 0.1 Basophils # 0.1 Nucleated Red Blood Cells # 0.0 Prothrombin Time 14.2 Prothrombin Time Ratio 1.1 INR International Normalized Ratio 1.10 Sodium Level 137 Potassium Level 4.3 Chloride Level 95 L Carbon Dioxide Level 27 Anion Gap 19 H Blood Urea Nitrogen 42 #H Creatinine 4.89 #H Glucose Level 65 #L Calcium Level 8.6 Random Vancomycin Level 12.4 Test 10/13/16 10:48 Bedside Glucose 67 L Medications Medications Current Medications Ondansetron HCl (Zofran Inj) 4 mg Q6H PRN IV NAUSEA AND/OR VOMITING; Start at 21:30 Acetaminophen (Tylenol Tab) 650 mg Q6H PRN PO PAIN LEVEL 1-3 OR FEVER Last administered on 10/12/16 18:00; Admin Dose 650 MG; Start 10/05/16 at 21:30 Acetaminophen/ Hydrocodone Bitart ([place] (5/325)) 1 tab Q6H PRN PO MODERATE PAIN LEVEL 4-6; Start 10/05/16 at 21:30 Morphine Sulfate (morphine) 2 mg Q4H PRN IV SEVERE PAIN LEVEL 7-10; Start 10/05 at 21:30 Docusate Sodium (Colace) 100 mg Q12H PRN PO CONSTIPATION; Start 10/05/16 at 21: 30 Magnesium Hydroxide (Milk Of Mag) 30 ml DAILY PRN PO CONSTIPATION; Start at 21:30 Sodium Biphosphate/ Sodium Phosphate (Fleet Enema) 133 ml DAILY PRN [place] CONSTIPATION; Start 10/05/16 at 21:30 Famotidine (Pepcid) 20 mg DAILY PO Last administered on 10/13/16 08:28; Admin Dose 20 MG; Start 10/06/16 at 09:00 Lorazepam (Ativan) 0.5 mg Q6H PRN IV ANXIETY Last administered on 10/06/16 15: 12; Admin Dose 0.5 MG; Start 10/05/16 at 21:30 Hydralazine HCl (Apresoline) 10 mg Q6H PRN IV ELEVATED SYSTOLIC BP Last administered on 10/12/16 15:07; Admin Dose 10 MG; Start 10/05/16 at 21:30 Clonidine (Catapres) 0.1 mg Q6H PRN PO ELEVATED SYSTOLIC BP; Start 10/05/16 at 21:30 Nitroglycerin (Nitroglycerin (Sl Tab) 0.4 Mg) 1 tab Q5M PRN SL ANGINA; Start at 21:30 Aspirin 325 mg 325 mg DAILY PO Last administered on 10/13/16 08:31; Admin Dose 325 MG; Start 10/06/16 at 09:00 Diltiazem HCl (Cardizem-D5W 125 Mg/125 ml Drip) 125 ml @ 5 mls/hr TITRATE IV ; Start 10/05/16 at 22:00 Diagnostic Test (Pha) (Accucheck) 1 ea 02 XX Last administered on 10/12/16 05: 36; Admin Dose 1 EA; Start 10/07/16 at 02:00 Zolpidem Tartrate (Ambien) 5 mg HS PRN PO INSOMNIA Last administered on 01:08; Admin Dose 5 MG; Start 10/06/16 at 01:00 Miscellaneous Information 1 ea NOTE XX ; Start 10/06/16 at 01:00 Glucose (Glutose) 15 gm Q15M PRN PO DECREASED GLUCOSE; Start 10/06/16 at 01:00 Glucose (Glutose) 22.5 gm Q15M PRN PO DECREASED GLUCOSE; Start 10/06/16 at 01: 00 Dextrose (D50w Syringe) 25 ml Q15M PRN IV DECREASED GLUCOSE; Start 10/06/16 at 01:00 Dextrose (D50w Syringe) 50 ml Q15M PRN IV DECREASED GLUCOSE; Start 10/06/16 at 01:00 Glucagon (Glucagen) 1 mg Q15M PRN IM DECREASED GLUCOSE; Start 10/06/16 at 01:00 Glucose (Glutose) 15 gm Q15M PRN BUCCAL DECREASED GLUCOSE; Start 10/06/16 at 01 :00 Cyanocobalamin (Vitamin B12) 1,000 mcg DAILY PO Last administered on 10/13/16 08:30; Admin Dose 1,000 MCG; Start 10/06/16 at 09:00 Folic Acid (Folic Acid) 0.8 mg DAILY PO Last administered on 10/13/16 08:37; Admin Dose 0.8 MG; Start 10/06/16 at 09:00 Triamcinolone Acetonide (Kenalog 0.1% Oint) 1 applic BID TOP Last administered on 10/12/16 22:04; Admin Dose 1 APPLIC; Start 10/06/16 at 09:00 Ferrous Sulfate (Slow Fe) 142 mg DAILY PO Last administered on 10/13/16 08:28 ; Admin Dose 142 MG; Start 10/07/16 at 09:00 Magnesium Oxide (Mag-Ox 400) 400 mg DAILY PO Last administered on 10/13/16 08: 29; Admin Dose 400 MG; Start 10/06/16 at 13:00 Clopidogrel Bisulfate (plaVIX) 75 mg DAILY PO Last administered on 10/13/16 08 :28; Admin Dose 75 MG; Start 10/06/16 at 12:00 Atorvastatin Calcium (Lipitor) 40 mg QHS PO Last administered on 10/12/16 20: 50; Admin Dose 40 MG; Start 10/06/16 at 21:00 Zolpidem Tartrate (Ambien) 10 mg QHS PRN PO INSOMNIA Last administered on 22:00; Admin Dose 10 MG; Start 10/06/16 at 16:30 Lorazepam (Ativan) 1 mg HS PO Last administered on 10/12/16 20:51; Admin Dose 1 MG; Start 10/07/16 at 21:00 Insulin Glargine (Lantus) 10 unit HS SC Last administered on 10/12/16 21:08; Admin Dose 10 UNIT; Start 10/07/16 at 21:00 Linagliptin (Tradjenta) 5 mg DAILY PO Last administered on 10/13/16 08:30; Admin Dose 5 MG; Start 10/07/16 at 17:00 Metoprolol Succinate (Toprol Xl) 25 mg BID PO Last administered on 10/13/16 08 :30; Admin Dose 25 MG; Start 10/07/16 at 21:00 Heparin Sodium (Porcine) (Heparin (5000 Units/0.5 ml)) 5,000 unit BID SC Last administered on 10/12/16 21:09; Admin Dose 5,000 UNIT; Start 10/10/16 at 12:00 Benazepril HCl (Lotensin) 40 mg QHS PO Last administered on 10/12/16 20:50; Admin Dose 40 MG; Start 10/10/16 at 21:00 Nifedipine 60 mg 60 mg QHS PO Last administered on 10/12/16 20:50; Admin Dose 60 MG; Start 10/10/16 at 21:00 Piperacillin Sod/ Tazobactam Sod (Zosyn 2.25gm/ 50ml (Pmx)) 50 ml @ 100 mls/hr Q8 IVPB Last administered on 10/13/16 06:10; Admin Dose 100 MLS/HR; Start at 11:00 Acetaminophen (Tylenol Tab) 650 mg Q4H PRN PO NON-CARDIAC PAIN LEVEL (1-3); Start 10/13/16 at 11:00 Morphine Sulfate (morphine) 2 mg Q2H PRN IV FOR NON CARDIAC PAIN (4-10); Start 10/13/16 at 11:00 Al Hydrox/Mg Hydrox/Simethicone (Mag-Al Plus) 30 ml Q4H PRN PO GASTROINTESTINAL UPSET; Start 10/13/16 at 11:00 Ondansetron HCl 4 mg 4 mg Q4H PRN IV NAUSEA AND/OR VOMITING; Start 10/13/16 at 11:00 Vancomycin HCl (Vancocin) 250 ml @ 125 mls/hr ONCE IVPB ; Start 10/13/16 at 14: 00; Stop 10/13/16 at 20:00 XANDER ROCHA Oct 13, 2016 12:18
--- NOTE | 2016-10-13 12:24 | CARRPT ---
DATE OF PROCEDURE: 10/13/2016 TYPE OF PROCEDURE: 1. Left heart catheterization. 2. Coronary angiography. 3. Measurement of left ventricular end diastolic pressure. 4. Femoral angiography. 5. Perclose closure device to right femoral artery. ATTENDING PHYSICIAN: Aiyana Umana MD REFERRING PHYSICIAN: Dr. Alvarado from the hospitalist service. INDICATION: Cardiomyopathy, decreased left ventricular ejection fraction, positive troponin, non-ST myocardial infarction, decreased EF TYPE OF ANESTHESIA: Conscious and local. BRIEF HISTORY AND HOSPITAL COURSE: Mr. Sandoval is a 76-year-old male with history of hypertension , dyslipidemia, diabetes mellitus who initially presented with complaints of shortness of breath and congestive heart failure. The patient underwent a 2D echo revealing a depressed EF from prior echo done 1 to 2 months prior and positive troponins. The patient brought to the cardiac catheterizatio n lab in order to assess for the possibility of recurrent symptoms of congestive heart failure and d ecreased EF. PROCEDURE: After informed consent was obtained to assess the [facility] cardiac c atheterization lab where his right groin was prepped and draped in usual sterile fashion. Lidocaine 2% was infiltrated into the right groin in order to achieve adequate anesthesia. Using modified Se valentin technique, the right femoral artery was cannulated and a 6-[place] arterial sheath was placed . A 6-[place] JL4 cardiac catheter was used to cannulate the left main coronary ostium with contrast injection. Multiple views of the left coronary arterial system were obtained. JL4 was removed ove r a guidewire and a JR4 was used to cannulate the right coronary arterial ostium. With contrast inj ection, multiple views of the right coronary arterial system obtained. JL4 was removed over a guide wire and a 6-[place] pigtail was passed through and across the aortic valve into the left ventricle. Left ventricular end-diastolic pressure measured. The pigtail catheter was then pulled back across the aortic valve to assess for significant gradient and removed. No LV gram was undertaken due to elevated left ventricular end diastolic pressure. Subsequently, at this time, a final angiographic image of the right femoral arterial insertion site was then obtained revealing the sheath to be well placed in the right common femoral artery. Subsequently, a 6-[place] Perclose device was used to se al the vessel. This completed the procedure. There were no noted complications. FINDINGS: 1. Coronary angiography: Left main 4.5 mm with a distal 50% to 60% stenosis. The LAD proximally i s a 3.5 mm vessel and has a widely patent apparent stent in this region with a mid body stenosis of approximately 20% to 30%. There appears to be a possible dual LAD system with the inferior branch b ecoming a very small caliber vessel just at the bifurcation, with some mild haziness and stenosis pr obably up to 40% to 50%, but with excellent flow within the vessels and a sub 2 mm vessel, the most probable true LAD appears to have a stent just at the bifurcation which is widely patent and in the mid portion of the LAD where it is a sub 2 mm vessel, has a stenosis up to approximately 60%. There are 2 mid branching diagonals, each with approximately 40% ostial stenosis. The circumflex proxima lly is a 3.5 mm vessel, is widely patent. There is a widely patent stent in the proximal portion of this vessel. In the mid distal portion of the circ continuation AV groove, there is a 30% stenosis and there is obtuse marginal bifurcates distally, a 2 mm vessel with an ostial 40% stenosis. The r ight coronary artery proximally is a very large vessel 4 mm appearing, with a questionable jada nt versus likely calcified vessels and has a dominant vessel, gives off a 2.5 mm PDA with a 20 % stenosis and a 3 mm posterolateral branch with a 30% mid body stenosis. MEASUREMENTS: Left ventricular end diastolic pressure of 25, no significant aortic stenosis by grad ient. TOTAL FLUOROSCOPY TIME: 2.7 minutes. TOTAL CONTRAST: 60 mL. IMPRESSION: 1. Moderate obstruction of distal left main but with excellent flow and moderate obstruction of mid LAD with excellent flow. 2. Widely patent LAD and circumflex stents. 3. Elevated left heart filling pressures. 4. No significant aortic stenosis by gradient. RECOMMENDATIONS: In light of procedure and findings at this time would: 1. Maximize medical management. 2. Aggressive risk factor reduction. 3. The patient to be readmitted to telemetry floor for post-catheterization observation and continu ed management of symptoms with PCP. Dictated By: AIYANA OWENS/CHANTALE Conf#: [id number] DID#: [id number]
[2016-10-13] MEDS ORDERED: VANCOMYCIN 1 GM in NS 250 ML IVPB SCH (14:00)
--- NOTE | 2016-10-13 14:32 | CONS ---
DATE OF ADMISSION: 10/05/2016 DATE OF CONSULTATION: 10/13/2016 TYPE OF CONSULTATION: Infectious Disease. REASON FOR CONSULTATION: Antibiotic management. HISTORY OF PRESENT ILLNESS: Mick Sandoval is a 76-year-old male who comes in with shortne ss of breath and is being seen for antibiotic management. His past problems include: 1. Coronary artery disease. 2. Adult-onset diabetes mellitus. 3. Atrial fibrillation. 4. End-stage renal disease on hemodialysis. The patient presents with shortness of breath which has been going on for 1 week and has been progre ssive. He came and on the . He had elevated heart rate, atrial fibrillation with rapid ventric ular response. Chest x-ray showed signs of pneumonitis and he was admitted. His temperature was 100.6 on admission. His white count was 10.2, H and H of 9.1 and 29.7, platelet count 352,000. His white count now has shot up from 8.4 to 19.3. BUN and creatinine 42/4.89. Uri ne negative for ketones, leukocyte esterase and 0 to 2 white cells per high powered field. Microbiology: He had gram-negative rods in his blood x2, coagulase negative staph in the urine. Chest x-ray showed right internal jugular tunneled dialysis catheter, pulmonary venous hypertension, right lower lobe and left lower lobe patchy consolidations, small bilateral pleural effusions. He is currently on vancomycin and Zosyn. HOSPITAL COURSE: The patient was seen by numerous physicians. He recently had a left cardiac ted terization by Dr. Umana, coronary angiography, femoral angiography. Left ventricular end diastoli c pressure of 25. No significant aortic stenosis by gradient. He has a moderate obstruction of the distal left main with excellent flow, moderate obstruction of mid LAD with excellent flow. Maximiz ed medical management with aggressive risk factor reduction. Elevated left heart filling pressures. The patient came in with acute respiratory distress secondary to volume overload with underlying e nd-stage renal disease, congestive heart failure, atrial fibrillation. PAST MEDICAL HISTORY: Operations as outlined. FAMILY HISTORY: Noncontributory. SOCIAL HISTORY: He does not smoke, drink or abuse drugs. ALLERGIES: NONE TO PENICILLIN, SULFA OR FOODS. MEDICATIONS: Per chart. REVIEW OF SYSTEMS: As per HPI. PHYSICAL EXAMINATION: GENERAL: The patient is a well-developed, well-nourished, actually chronically ill-appearing male w is alert, responsive, in no acute distress. VITAL SIGNS: Stable. He is currently afebrile. SKIN: Without generalized rash. HEENT: Within normal limits. NECK: Supple. He has a right Perm-A-Cath in place. LYMPH NODES: None palpable. CHEST: Decreased breath sounds at the bases. HEART: Without murmur or gallop. ABDOMEN: Soft, nontender, without organosplenomegaly or masses. EXTREMITIES: Without cyanosis, clubbing, or edema. RECTAL AND GENITAL: Deferred. NEUROLOGIC: No focal neurological abnormality. IMPRESSION AND PLAN: The patient comes in now with shortness of breath and is found to have positiv e blood cultures with gram negative rods. He is on vancomycin and he is on Zosyn. Recent blood cul tures on the are negative. We will continue him on current therapy. I will dictate my finding s to the hospitalist and to the aforementioned consultants. Dictated By: DIPAK SHERIDAN MD, JD/CHANTALE Conf#: [id number] DID#: [id number]
[2016-10-13] MEDS: LORAZEPAM 0.5 MG TAB PO SCH (21:00)
[2016-10-13] MEDS: INSULIN GLARGINE [LANtus] 3 ML PEN SC SCH (21:00)
[2016-10-13] MEDS: LORAZEPAM 2 MG INJ IV PRN (21:38)
[2016-10-13] MEDS: NIFEdipine (XL) 60 MG TAB PO SCH (21:39)
[2016-10-13] MEDS: BENAZEPRIL 40 MG TAB PO SCH (21:39)
[2016-10-13] MEDS: ATORVASTATIN 40 MG TAB PO SCH (21:39)
[2016-10-14] VITALS (21 sets, daily range): BP systolic 130–180; BP diastolic 64–92; PULSE 66–90; RESP 17–20
[2016-10-14] MEDS: ACCU-CHEK XX SCH (02:00)
[2016-10-14] MEDS: PIPER-TAZO 2.25 GM (PMX) 50 ML IVPB SCH ×3 (05:32→20:40)
[2016-10-14 06:13] LABS: ADD SCAN DIFF NO
[2016-10-14 06:35] LABS: BASOPHIL # 0.1 10^3/ul (0.0-0.1); BASOPHILS % 0.5 % (0.0-2.0); EOSINOPHILS # 0.2 10^3/ul (0.0-0.5); EOSINOPHILS % 1.8 % (0.0-7.0); HEMATOCRIT 25.8 % (42.0-52.0); HEMOGLOBIN 7.8 g/dl (14.0-18.0); LYMPHOCYTES % 18.4 % (15.0-51.0); MEAN CORPUSCULAR HGB CONC 30.2 g/dl (32.0-37.0); MEAN PLATELET VOLUME 11.4 fl (7.4-10.4); MONOCYTES % 8.8 % (0.0-11.0); NEUTROPHIL # 7.7 10^3/ul (1.6-7.5); NEUTROPHILS % 70.2 % (39.0-77.0); PLATELET COUNT 248 10^3/UL (140-415); RED CELL DISTRIBUTION WIDTH 15.8 % (11.5-14.5); WHITE BLOOD COUNT 10.9 10^3/ul (4.8-10.8)
[2016-10-14 06:46] LABS: POTASSIUM 4.2 mmol/L (3.5-5.1)
[2016-10-14 06:50] LABS: CALCIUM 8.5 mg/dl (8.4-10.2); MAGNESIUM 2.1 mg/dl (1.7-2.5); PHOSPHORUS 4.5 mg/dl (2.5-4.9)
[2016-10-14] MEDS: INSULIN ASPART [NOVOLOG] 3 ML PEN SC SCH ×4 (07:55→20:45)
[2016-10-14] MEDS: MAGNESIUM OXIDE 400 MG TAB PO SCH (08:33)
[2016-10-14] MEDS: FERROUS SULFATE (SR) 142 MG TAB PO SCH (08:33)
[2016-10-14] MEDS: LINAGLIPTIN 5 MG TABLET PO SCH (08:33)
[2016-10-14] MEDS: METOPROLOL (XL) 25 MG TAB PO SCH ×2 (08:33→20:42)
[2016-10-14] MEDS: CYANOCOBALAMIN 500 MCG TAB PO SCH (08:33)
[2016-10-14] MEDS: ASPIRIN (EC) 325 MG TAB PO SCH (08:33)
[2016-10-14] MEDS: FAMOTIDINE 20 MG TAB PO SCH (08:33)
[2016-10-14] MEDS: CLOPIDOGREL 75 MG TAB PO SCH (08:34)
[2016-10-14] MEDS: FOLIC ACID 0.4 MG TAB PO SCH (08:34)
[2016-10-14] MEDS: TRIAMCINOLONE ACET 0.1% 15 GM OINT TOP SCH ×2 (08:43→21:19)
[2016-10-14] MEDS: HEPARIN 5,000 UNIT/0.5 ML SYG SC SCH ×2 (08:43→20:45)
--- NOTE | 2016-10-14 09:57 | PN ---
DATE: 10/14/2016 SUBJECTIVE: Patient stable, had cardiac catheterization yesterday which showed evidence of coronary artery disease, but the patient's LAD was patent. No other acute events noted. No hemoptysis, hem atemesis, hematochezia. OBJECTIVE: VITAL SIGNS: Blood pressure 130/64, respiratory rate 20, pulse 68, temperature 98.5. HEENT: Head is normocephalic. NECK: Supple. HEART: Regular rate. LUNGS: Show diminished breath sounds at the base. ABDOMEN: Soft, nontender to palpation. No rebound or guarding. EXTREMITIES: Negative for clubbing, cyanosis, no edema. DERMATOLOGIC: No rashes. MUSCULOSKELETAL: No joint effusions. NEUROLOGIC: No change in exam. MEDICATIONS: Reviewed. LABORATORY DATA: Shows white count 10.9, hemoglobin 7.8, hematocrit 25.8, platelet count is 248. S odium 136, potassium 4.2, chloride 94, BUN 57, creatinine 7.0. ASSESSMENT AND PLAN: 1. End-stage renal disease. The patient is scheduled for hemodialysis today for 3 hours, 3K bath c alcium 2.5, ultrafiltrate as tolerated. 2. Acute congestive heart failure, ejection fraction of 25%. The patient is status post cardiac ca theterization with patent LAD. At this point, continue medical management. Continue ultrafiltratio n dialysis. 3. Anemia of chronic disease. Continue to monitor hemoglobin and hematocrit levels. Continue Epog en. 4. Atrial fibrillation, currently rate controlled. Continue medical management. 5. Coronary artery disease, status post cardiac catheterization as stated above. Follow up with Car diology for recommendations. 6. Diabetes. Continue Accu-Cheks and sliding scale. 7. Status post respiratory failure. 8. Sepsis secondary to gram-negative bacteremia. Underlying source is unclear. The possibility of a line infection is a consideration. The patient has previously been treated for underlying pneumo solomon. Continue broad spectrum antibiotics. We will follow up with infectious disease for recommenda tions. Dictated By: NOEMI BOTELLO/CHANTALE Conf#: [id number] DID#: [id number]
[2016-10-14] MEDS ORDERED: AMIKACIN IV PER PHARMACY XX SCH (12:00)
--- NOTE | 2016-10-14 12:14 | PN ---
DATE: 10/14/2016 INFECTIOUS DISEASE PROGRESS NOTE SUBJECTIVE: Patient is alert, lying comfortably in bed. No fevers. Denies pain, discomfort. No n ausea, vomiting or diarrhea. WBC 10.9, H and H 7.8 and 25.8, platelets 248, neutrophils 70.2. No b ands. BUN 57, creatinine 7. MICROBIOLOGY: Blood cultures on 10/05/2016 grew gram-negative rods. Repeat blood culture on 2016 is also growing gram-negative rods. Culture on 10/11/2016 also growing gram-negative rods. ANTIMICROBIALS: The patient is on: 1. Zosyn. 2. Vancomycin. INDWELLINGS: Right IJ PermCath. PHYSICAL EXAMINATION: GENERAL: This is well-developed, elderly man, who is alert, in no distress. HEENT: Head atraumatic, normocephalic. Sclerae anicteric. Buccal mucosa pink. NECK: Supple, trachea midline. CHEST: Chest rise is symmetrical. Breath sounds clear. HEART: S1, S2. ABDOMEN: Soft, bowel tones present. EXTREMITIES: Without cyanosis. ASSESSMENT: 1. Persistent bacteremia, likely secondary to infected PermCath. 2. Anemia. 3. Atrial fibrillation. 4. Diabetes. 5. Pneumonia. PLAN: Final cultures are still pending. The patient is on Zosyn. We will add amikacin to the marko men, obtain a sputum culture, and consider PermCath discontinuation with line holiday. Dictated By: ALEXA BERRY JUNIOR LINUX ADMINISTRATOR for DIPAK SHAW/CHANTALE Conf#: [id number] DID#: [id number]
--- NOTE | 2016-10-14 12:27 | PN ---
Date/Time of Note Date/Time of Note DATE: 10/14/16 TIME: 12:27 Assessment/Plan VTE Prophylaxis VTE Prophylaxis Intervention: heparin Lines/Catheters IV Catheter Type (from Nrs): Peripheral IV Urinary Cath still in place: No Assessment/Plan Assessment/Plan 1. Acute respiratory distress secondary to volume overload with underlying end -stage renal disease and congestive heart failure, improved. 2. Atrial fibrillation with rapid ventricular response, converted back to sinus now rate controlled 3. ?Troponin elevation of uncertain significance 4. End-stage renal disease on hemodialysis. 5. History of diabetes mellitus type 2. Hemoglobin 6.3. 6. Anemia of chronic disease. 7. Known coronary artery disease with history of PTCA and stent placement at [facility]. 8. Hypertensive urgency, resolved. 9. Acute on chronic systolic congestive heart failure with ejection fraction of 25% from 45% 10. Gram negative kait bacteremia PLAN: * continue current mgt * Continue current abx * Continue current supportive care. * Prophylaxis: Heparin / pepcid Exam/Review of Systems Vital Signs Vitals Vital Signs Date Time Temp Pulse Resp B/P Pulse Ox O2 Delivery O2 Flow Rate FiO2 10/14/16 12:03 77 10/14/16 11:18 98.1 20 146/74 100 10/14/16 08:47 Nasal Cannula 10/13/16 11:42 2.0 Intake and Output 10/13/16 10/13/16 10/14/16 15:00 23:00 07:00 Intake Total 120 ml 450 ml 400 ml Balance 120 ml 450 ml 400 ml Exam Constitutional: alert, frail, oriented, No distress Psych: anxiety Head: normocephalic Eyes: PERRL Neck: non-tender Respiratory: clear to auscultation, diminished breath sounds Cardiovascular: murmurs/extra sounds, regular rate and rhythm Gastrointestinal: bowel sounds, non-tender, soft Extremities: No edema Neurological: nl mental status, nl speech Results Result Diagram: 10/14/16 0525 10/14/16 0525 Results 24 hrs Laboratory Tests Test 10/13/16 17:37 10/13/16 21:20 10/14/16 05:25 10/14/16 07:33 Bedside Glucose 136 151 194 White Blood Count 10.9 #H Red Blood Count 3.00 L Hemoglobin 7.8 L Hematocrit 25.8 L Mean Corpuscular Volume 86.0 Mean Corpuscular Hemoglobin 26.0 L Mean Corpuscular Hemoglobin Concent 30.2 L Red Cell Distribution Width 15.8 H Platelet Count 248 Mean Platelet Volume 11.4 H Neutrophils % 70.2 Lymphocytes % 18.4 Monocytes % 8.8 Eosinophils % 1.8 Basophils % 0.5 Nucleated Red Blood Cells % 0.0 Neutrophils # 7.7 H Lymphocytes # 2.0 Monocytes # 1.0 H Eosinophils # 0.2 Basophils # 0.1 Nucleated Red Blood Cells # 0.0 Sodium Level 136 Potassium Level 4.2 Chloride Level 94 L Carbon Dioxide Level 28 Anion Gap 18 H Blood Urea Nitrogen 57 H Creatinine 7.00 #H Glucose Level 182 # Calcium Level 8.5 Phosphorus Level 4.5 Magnesium Level 2.1 Test 10/14/16 11:10 Bedside Glucose 284 H Medications Medications Current Medications Ondansetron HCl (Zofran Inj) 4 mg Q6H PRN IV NAUSEA AND/OR VOMITING; Start at 21:30 Acetaminophen (Tylenol Tab) 650 mg Q6H PRN PO PAIN LEVEL 1-3 OR FEVER Last administered on 10/12/16 18:00; Admin Dose 650 MG; Start 10/05/16 at 21:30 Acetaminophen/ Hydrocodone Bitart ([place] (5/325)) 1 tab Q6H PRN PO MODERATE PAIN LEVEL 4-6; Start 10/05/16 at 21:30 Morphine Sulfate (morphine) 2 mg Q4H PRN IV SEVERE PAIN LEVEL 7-10; Start 10/05 at 21:30 Docusate Sodium (Colace) 100 mg Q12H PRN PO CONSTIPATION; Start 10/05/16 at 21: 30 Magnesium Hydroxide (Milk Of Mag) 30 ml DAILY PRN PO CONSTIPATION; Start at 21:30 Sodium Biphosphate/ Sodium Phosphate (Fleet Enema) 133 ml DAILY PRN [place] CONSTIPATION; Start 10/05/16 at 21:30 Famotidine (Pepcid) 20 mg DAILY PO Last administered on 10/14/16 08:33; Admin Dose 20 MG; Start 10/06/16 at 09:00 Lorazepam (Ativan) 0.5 mg Q6H PRN IV ANXIETY Last administered on 10/13/16 21: 38; Admin Dose 0.5 MG; Start 10/05/16 at 21:30 Hydralazine HCl (Apresoline) 10 mg Q6H PRN IV ELEVATED SYSTOLIC BP Last administered on 10/12/16 15:07; Admin Dose 10 MG; Start 10/05/16 at 21:30 Clonidine (Catapres) 0.1 mg Q6H PRN PO ELEVATED SYSTOLIC BP; Start 10/05/16 at 21:30 Nitroglycerin (Nitroglycerin (Sl Tab) 0.4 Mg) 1 tab Q5M PRN SL ANGINA; Start at 21:30 Aspirin 325 mg 325 mg DAILY PO Last administered on 10/14/16 08:33; Admin Dose 325 MG; Start 10/06/16 at 09:00 Diltiazem HCl (Cardizem-D5W 125 Mg/125 ml Drip) 125 ml @ 5 mls/hr TITRATE IV ; Start 10/05/16 at 22:00 Diagnostic Test (Pha) (Accucheck) 1 ea 02 XX Last administered on 10/12/16 05: 36; Admin Dose 1 EA; Start 10/07/16 at 02:00 Zolpidem Tartrate (Ambien) 5 mg HS PRN PO INSOMNIA Last administered on 01:08; Admin Dose 5 MG; Start 10/06/16 at 01:00 Miscellaneous Information 1 ea NOTE XX ; Start 10/06/16 at 01:00 Glucose (Glutose) 15 gm Q15M PRN PO DECREASED GLUCOSE; Start 10/06/16 at 01:00 Glucose (Glutose) 22.5 gm Q15M PRN PO DECREASED GLUCOSE; Start 10/06/16 at 01: 00 Dextrose (D50w Syringe) 25 ml Q15M PRN IV DECREASED GLUCOSE; Start 10/06/16 at 01:00 Dextrose (D50w Syringe) 50 ml Q15M PRN IV DECREASED GLUCOSE; Start 10/06/16 at 01:00 Glucagon (Glucagen) 1 mg Q15M PRN IM DECREASED GLUCOSE; Start 10/06/16 at 01:00 Glucose (Glutose) 15 gm Q15M PRN BUCCAL DECREASED GLUCOSE; Start 10/06/16 at 01 :00 Cyanocobalamin (Vitamin B12) 1,000 mcg DAILY PO Last administered on 10/14/16 08:33; Admin Dose 1,000 MCG; Start 10/06/16 at 09:00 Folic Acid (Folic Acid) 0.8 mg DAILY PO Last administered on 10/14/16 08:34; Admin Dose 0.8 MG; Start 10/06/16 at 09:00 Triamcinolone Acetonide (Kenalog 0.1% Oint) 1 applic BID TOP Last administered on 10/13/16 21:44; Admin Dose 1 APPLIC; Start 10/06/16 at 09:00 Ferrous Sulfate (Slow Fe) 142 mg DAILY PO Last administered on 10/14/16 08:33 ; Admin Dose 142 MG; Start 10/07/16 at 09:00 Magnesium Oxide (Mag-Ox 400) 400 mg DAILY PO Last administered on 10/14/16 08: 33; Admin Dose 400 MG; Start 10/06/16 at 13:00 Clopidogrel Bisulfate (plaVIX) 75 mg DAILY PO Last administered on 10/14/16 08 :34; Admin Dose 75 MG; Start 10/06/16 at 12:00 Atorvastatin Calcium (Lipitor) 40 mg QHS PO Last administered on 10/13/16 21: 39; Admin Dose 40 MG; Start 10/06/16 at 21:00 Zolpidem Tartrate (Ambien) 10 mg QHS PRN PO INSOMNIA Last administered on 22:00; Admin Dose 10 MG; Start 10/06/16 at 16:30 Lorazepam (Ativan) 1 mg HS PO Last administered on 10/12/16 20:51; Admin Dose 1 MG; Start 10/07/16 at 21:00 Insulin Glargine (Lantus) 10 unit HS SC Last administered on 10/12/16 21:08; Admin Dose 10 UNIT; Start 10/07/16 at 21:00 Linagliptin (Tradjenta) 5 mg DAILY PO Last administered on 10/14/16 08:33; Admin Dose 5 MG; Start 10/07/16 at 17:00 Metoprolol Succinate (Toprol Xl) 25 mg BID PO Last administered on 10/14/16 08 :33; Admin Dose 25 MG; Start 10/07/16 at 21:00 Heparin Sodium (Porcine) (Heparin (5000 Units/0.5 ml)) 5,000 unit BID SC Last administered on 10/14/16 08:43; Admin Dose 5,000 UNIT; Start 10/10/16 at 12:00 Benazepril HCl (Lotensin) 40 mg QHS PO Last administered on 10/13/16 21:39; Admin Dose 40 MG; Start 10/10/16 at 21:00 Nifedipine 60 mg 60 mg QHS PO Last administered on 10/13/16 21:39; Admin Dose 60 MG; Start 10/10/16 at 21:00 Piperacillin Sod/ Tazobactam Sod (Zosyn 2.25gm/ 50ml (Pmx)) 50 ml @ 100 mls/hr Q8 IVPB Last administered on 10/14/16 05:32; Admin Dose 100 MLS/HR; Start at 11:00 Acetaminophen (Tylenol Tab) 650 mg Q4H PRN PO NON-CARDIAC PAIN LEVEL (1-3); Start 10/13/16 at 11:00 Morphine Sulfate (morphine) 2 mg Q2H PRN IV FOR NON CARDIAC PAIN (4-10); Start 10/13/16 at 11:00 Al Hydrox/Mg Hydrox/Simethicone (Mag-Al Plus) 30 ml Q4H PRN PO GASTROINTESTINAL UPSET; Start 10/13/16 at 11:00 Ondansetron HCl (Zofran Inj) 4 mg Q4H PRN IV NAUSEA AND/OR VOMITING; Start at 11:00 Amikacin Sulfate (Amikacin Iv Per Pharmacy) AMIKACIN PER PHARMACY NOTE XX ; Start 10/14/16 at 12:00 XANDER ROCHA Oct 14, 2016 12:27
[2016-10-14] MEDS ORDERED: SOD CHLORIDE 0.9% IVPB SCH (15:30)
[2016-10-14] MEDS ORDERED: AMIKACIN IVPB SCH (15:30)
--- NOTE | 2016-10-14 15:48 | CONS ---
Date/Time of Note Date/Time of Note DATE: 10/14/16 TIME: 15:43 Assessment/Plan Assessment/Plan Chief Complaint/Hosp Course IMPRESSION: 1. Atrial fibrillation with rapid ventricular response-now rate controlled 2. Abnormal electrocardiogram with inferolateral ST depressions. 3. Positive troponin, assess significance. 4. Cardiomyopathy, decreased left ventricular ejection fraction last approximately 45% by outside hospital paperwork at [facility] 09/09. Now approx 25% by echo here 5. History of PTCA and stent placement at [facility] recently.-per notes had PCI at [facility](08/2016)after being thought to be poor surgical candidate but cath report not sent from [facility]. Had originally transferred from [facility] where was cathed and found to have 3VD after suffering PA.-Now s/p C today with moderate disease of distal LMN and mid LAD but otherwise patent vessels and stents 6. Renal failure. 7. Hypertension. 8. Shortness of breath. 9. Generalized weakness. 10. Diabetes mellitus. 11. Anemia-worsening 12.CHF-systolic acute on chronic Recc: -Tele -Continue BB/CCB -Increase ACEI to improve SBP control -Continue asa/plavix/statin -HD for volume removal today -SQ heparin -D/C planning if patient asmptomatic -outpatient f/u Problems: Consultation Date/Type/Reason Admit Date/Time Oct 05, 2016 at 21:04 Initial Consult Date 10/06/2016 Type of Consultation: Cardiology Reason for Consultation Nstemi/Cmy Referring Provider: JANAE ELDRIDGE Exam/Review of Systems Vital Signs Vitals Vital Signs Date Time Temp Pulse Resp B/P Pulse Ox O2 Delivery O2 Flow Rate FiO2 10/14/16 15:37 98.2 69 20 158/77 100 10/14/16 08:47 Nasal Cannula 10/13/16 11:42 2.0 Intake and Output 10/13/16 10/13/16 10/14/16 15:00 23:00 07:00 Intake Total 120 ml 450 ml 400 ml Balance 120 ml 450 ml 400 ml Exam Review of Systems: CONSTITUTIONAL: No fevers, chills. PULMONARY: mild sob CARDIOVASCULAR: No chest pain/palpitations GASTROINTESTINAL: No nausea/vomiting. GENITOURINARY: No hematuria/dysuria. MUSCULOSKELETAL: No myagias/arthalgias. PSYCHIATRIC: The patient denies depression. NEUROLOGIC: No weakness Constitutional: alert Psych: no complaints Head: normocephalic ENMT: mucosa pink and moist Neck: jvd (9 cm water), supple Respiratory: diminished breath sounds (at bases/B) Cardiovascular: regular rate and rhythm Gastrointestinal: non-tender, soft Musculoskeletal: muscle tone (normal) Extremities: edema (none) Neurological: other (No focal deficits) Results Result Diagram: 10/14/16 0525 10/14/16 0525 Results 24 hrs Laboratory Tests Test 10/13/16 17:37 10/13/16 21:20 10/14/16 05:25 10/14/16 07:33 Bedside Glucose 136 151 194 White Blood Count 10.9 #H Red Blood Count 3.00 L Hemoglobin 7.8 L Hematocrit 25.8 L Mean Corpuscular Volume 86.0 Mean Corpuscular Hemoglobin 26.0 L Mean Corpuscular Hemoglobin Concent 30.2 L Red Cell Distribution Width 15.8 H Platelet Count 248 Mean Platelet Volume 11.4 H Neutrophils % 70.2 Lymphocytes % 18.4 Monocytes % 8.8 Eosinophils % 1.8 Basophils % 0.5 Nucleated Red Blood Cells % 0.0 Neutrophils # 7.7 H Lymphocytes # 2.0 Monocytes # 1.0 H Eosinophils # 0.2 Basophils # 0.1 Nucleated Red Blood Cells # 0.0 Sodium Level 136 Potassium Level 4.2 Chloride Level 94 L Carbon Dioxide Level 28 Anion Gap 18 H Blood Urea Nitrogen 57 H Creatinine 7.00 #H Glucose Level 182 # Calcium Level 8.5 Phosphorus Level 4.5 Magnesium Level 2.1 Test 10/14/16 11:10 Bedside Glucose 284 H Medications Medications Current Medications Ondansetron HCl (Zofran Inj) 4 mg Q6H PRN IV NAUSEA AND/OR VOMITING; Start at 21:30 Acetaminophen (Tylenol Tab) 650 mg Q6H PRN PO PAIN LEVEL 1-3 OR FEVER Last administered on 10/12/16t 18:00; Admin Dose 650 MG; Start 10/05/16 at 21:30 Acetaminophen/ Hydrocodone Bitart ([place] (5/325)) 1 tab Q6H PRN PO MODERATE PAIN LEVEL 4-6; Start 10/05/16 at 21:30 Morphine Sulfate (morphine) 2 mg Q4H PRN IV SEVERE PAIN LEVEL 7-10; Start 10/05 at 21:30 Docusate Sodium (Colace) 100 mg Q12H PRN PO CONSTIPATION; Start 10/05/16 at 21: 30 Magnesium Hydroxide (Milk Of Mag) 30 ml DAILY PRN PO CONSTIPATION; Start at 21:30 Sodium Biphosphate/ Sodium Phosphate (Fleet Enema) 133 ml DAILY PRN [place] CONSTIPATION; Start 10/05/16 at 21:30 Famotidine (Pepcid) 20 mg DAILY PO Last administered on 10/14/16 08:33; Admin Dose 20 MG; Start 10/06/16 at 09:00 Lorazepam (Ativan) 0.5 mg Q6H PRN IV ANXIETY Last administered on 10/13/16 21: 38; Admin Dose 0.5 MG; Start 10/05/16 at 21:30 Hydralazine HCl (Apresoline) 10 mg Q6H PRN IV ELEVATED SYSTOLIC BP Last administered on 10/12/16 15:07; Admin Dose 10 MG; Start 10/05/16 at 21:30 Clonidine (Catapres) 0.1 mg Q6H PRN PO ELEVATED SYSTOLIC BP; Start 10/05/16 at 21:30 Nitroglycerin (Nitroglycerin (Sl Tab) 0.4 Mg) 1 tab Q5M PRN SL ANGINA; Start at 21:30 Aspirin 325 mg 325 mg DAILY PO Last administered on 10/14/16 08:33; Admin Dose 325 MG; Start 10/06/16 at 09:00 Diltiazem HCl (Cardizem-D5W 125 Mg/125 ml Drip) 125 ml @ 5 mls/hr TITRATE IV ; Start 10/05/16 at 22:00 Diagnostic Test (Pha) (Accucheck) 1 ea 02 XX Last administered on 10/12/16 05: 36; Admin Dose 1 EA; Start 10/07/16 at 02:00 Zolpidem Tartrate (Ambien) 5 mg HS PRN PO INSOMNIA Last administered on 01:08; Admin Dose 5 MG; Start 10/06/16 at 01:00 Miscellaneous Information 1 ea NOTE XX ; Start 10/06/16 at 01:00 Glucose (Glutose) 15 gm Q15M PRN PO DECREASED GLUCOSE; Start 10/06/16 at 01:00 Glucose (Glutose) 22.5 gm Q15M PRN PO DECREASED GLUCOSE; Start 10/06/16 at 01: 00 Dextrose (D50w Syringe) 25 ml Q15M PRN IV DECREASED GLUCOSE; Start 10/06/16 at 01:00 Dextrose (D50w Syringe) 50 ml Q15M PRN IV DECREASED GLUCOSE; Start 10/06/16 at 01:00 Glucagon (Glucagen) 1 mg Q15M PRN IM DECREASED GLUCOSE; Start 10/06/16 at 01:00 Glucose (Glutose) 15 gm Q15M PRN BUCCAL DECREASED GLUCOSE; Start 10/06/16 at 01 :00 Cyanocobalamin (Vitamin B12) 1,000 mcg DAILY PO Last administered on 10/14/16 08:33; Admin Dose 1,000 MCG; Start 10/06/16 at 09:00 Folic Acid (Folic Acid) 0.8 mg DAILY PO Last administered on 10/14/16 08:34; Admin Dose 0.8 MG; Start 10/06/16 at 09:00 Triamcinolone Acetonide (Kenalog 0.1% Oint) 1 applic BID TOP Last administered on 10/13/16 21:44; Admin Dose 1 APPLIC; Start 10/06/16 at 09:00 Ferrous Sulfate (Slow Fe) 142 mg DAILY PO Last administered on 10/14/16 08:33 ; Admin Dose 142 MG; Start 10/07/16 at 09:00 Magnesium Oxide (Mag-Ox 400) 400 mg DAILY PO Last administered on 10/14/16 08: 33; Admin Dose 400 MG; Start 10/06/16 at 13:00 Clopidogrel Bisulfate (plaVIX) 75 mg DAILY PO Last administered on 10/14/16 08 :34; Admin Dose 75 MG; Start 10/06/16 at 12:00 Atorvastatin Calcium (Lipitor) 40 mg QHS PO Last administered on 10/13/16 21: 39; Admin Dose 40 MG; Start 10/06/16 at 21:00 Zolpidem Tartrate (Ambien) 10 mg QHS PRN PO INSOMNIA Last administered on 22:00; Admin Dose 10 MG; Start 10/06/16 at 16:30 Lorazepam (Ativan) 1 mg HS PO Last administered on 10/12/16 20:51; Admin Dose 1 MG; Start 10/07/16 at 21:00 Insulin Glargine (Lantus) 10 unit HS SC Last administered on 10/12/16 21:08; Admin Dose 10 UNIT; Start 10/07/16 at 21:00 Linagliptin (Tradjenta) 5 mg DAILY PO Last administered on 10/14/16 08:33; Admin Dose 5 MG; Start 10/07/16 at 17:00 Metoprolol Succinate (Toprol Xl) 25 mg BID PO Last administered on 10/14/16 08 :33; Admin Dose 25 MG; Start 10/07/16 at 21:00 Heparin Sodium (Porcine) (Heparin (5000 Units/0.5 ml)) 5,000 unit BID SC Last administered on 10/14/16 08:43; Admin Dose 5,000 UNIT; Start 10/10/16 at 12:00 Benazepril HCl (Lotensin) 40 mg QHS PO Last administered on 10/13/16 21:39; Admin Dose 40 MG; Start 10/10/16 at 21:00 Nifedipine 60 mg 60 mg QHS PO Last administered on 10/13/16 21:39; Admin Dose 60 MG; Start 10/10/16 at 21:00 Piperacillin Sod/ Tazobactam Sod (Zosyn 2.25gm/ 50ml (Pmx)) 50 ml @ 100 mls/hr Q8 IVPB Last administered on 10/14/16 05:32; Admin Dose 100 MLS/HR; Start at 11:00 Acetaminophen (Tylenol Tab) 650 mg Q4H PRN PO NON-CARDIAC PAIN LEVEL (1-3); Start 10/13/16 at 11:00 Morphine Sulfate (morphine) 2 mg Q2H PRN IV FOR NON CARDIAC PAIN (4-10); Start 10/13/16 at 11:00 Al Hydrox/Mg Hydrox/Simethicone (Mag-Al Plus) 30 ml Q4H PRN PO GASTROINTESTINAL UPSET; Start 10/13/16 at 11:00 Ondansetron HCl (Zofran Inj) 4 mg Q4H PRN IV NAUSEA AND/OR VOMITING; Start at 11:00 Amikacin Sulfate (Amikacin Iv Per Pharmacy) AMIKACIN PER PHARMACY NOTE XX ; Start 10/14/16 at 12:00 Miscellaneous Information RANDOM VANCO LEVEL... ONCE ONCE XX ; Start 10/15/16 at 05:00; Stop 10/15/16 at 05:01 Amikacin Sulfate/ Sodium Chloride (Amikacin/NS) 101.92 ml @ 102 mls/ hr ONCE IVPB ; Start 10/14/16 at 15:30; Stop 10/14/16 at 16:30 AIYANA LANG Oct 14, 2016 15:48
[2016-10-14] MEDS: hydrALAzine 20 MG INJ IV PRN (17:50)
[2016-10-14] MEDS: ACETAMINOPHEN 325 MG TAB PO PRN (18:39)
[2016-10-14] MEDS: BENAZEPRIL 40 MG TAB PO SCH (20:41)
[2016-10-14] MEDS: ATORVASTATIN 40 MG TAB PO SCH (20:41)
[2016-10-14] MEDS: NIFEdipine (XL) 60 MG TAB PO SCH (20:41)
[2016-10-14] MEDS: LORAZEPAM 0.5 MG TAB PO SCH (20:42)
[2016-10-14] MEDS: INSULIN GLARGINE [LANtus] 3 ML PEN SC SCH (20:44)
[2016-10-15] VITALS (20 sets, daily range): BP systolic 116–203; BP diastolic 59–96; PULSE 74–85; RESP 15–19
[2016-10-15] MEDS: ZOLPIDEM 5 MG TAB PO PRN ×2 (00:26→23:22)
[2016-10-15] MEDS: ACCU-CHEK XX SCH (02:49)
[2016-10-15] MEDS: PIPER-TAZO 2.25 GM (PMX) 50 ML IVPB SCH ×3 (05:55→21:04)
--- NOTE | 2016-10-15 06:01 | CONS ---
DATE OF ADMISSION: 10/05/2016 DATE OF CONSULTATION: REASON FOR CONSULTATION: End-stage renal disease. Thank you, Dr. Tolbert, for asking me to see this patient. HISTORY OF PRESENT ILLNESS: This is a 76-year-old male with a history of hypertension, hyperlipidem ia, currently on dialysis per a right internal jugular vein tunneled PermCath catheter. The patient 's catheter has a possibility of infection. The patient's cultures were positive through the PermCa th and currently he is being treated for catheter-related infection. PAST MEDICAL HISTORY: Coronary artery disease, diabetes, hypertension, atrial fibrillation, end-sta ge renal disease. PAST SURGICAL HISTORY: PermCath placement. ALLERGIES: NONE. SOCIAL HISTORY: No smoking, drinking or drug use. MEDICATIONS: Reviewed. PHYSICAL EXAMINATION: VITAL SIGNS: Blood pressure is 180/85, pulse is 83, respirations 19, saturations 95% on room air. HEENT: Normocephalic, atraumatic. PERRLA. NECK: Supple. No JVD, no carotid bruits. CARDIOVASCULAR: Normal S1, S2. LUNGS: Clear. ABDOMEN: Soft. EXTREMITIES: Warm. PermCath is in place. LABORATORY VALUES: White count is 10.9, hemoglobin 7.1, platelet count 248. IMPRESSION: End-stage renal disease, on dialysis per PermCath, with possible infection. RECOMMENDATIONS: Will dialyze the patient one more time through the catheter and proceed with remov al of the catheter. Discussed with Dr. Tolbert. Dictated By: JULIAN BOTELLO/CHANTALE Conf#: [id number] DID#: [id number]
[2016-10-15 06:12] LABS: ADD SCAN DIFF NO
[2016-10-15 06:15] LABS: BASOPHIL # 0.1 10^3/ul (0.0-0.1); BASOPHILS % 0.5 % (0.0-2.0); EOSINOPHILS # 0.2 10^3/ul (0.0-0.5); EOSINOPHILS % 1.9 % (0.0-7.0); HEMATOCRIT 29.2 % (42.0-52.0); HEMOGLOBIN 9.4 g/dl (14.0-18.0); LYMPHOCYTES # 1.5 10^3/ul (0.8-2.9); LYMPHOCYTES % 15.6 % (15.0-51.0); MEAN CORPUSCULAR HEMOGLOBIN 27.2 pg (29.0-33.0); MEAN CORPUSCULAR HGB CONC 32.2 g/dl (32.0-37.0); MEAN CORPUSCULAR VOLUME 84.6 fl (82.0-101.0); MEAN PLATELET VOLUME 10.8 fl (7.4-10.4); MONOCYTE # 0.7 10^3/ul (0.3-0.9); MONOCYTES % 7.2 % (0.0-11.0); NEUTROPHIL # 7.2 10^3/ul (1.6-7.5); NEUTROPHILS % 74.3 % (39.0-77.0); PLATELET COUNT 268 10^3/UL (140-415); RED BLOOD COUNT 3.45 10^6/ul (4.70-6.10); RED CELL DISTRIBUTION WIDTH 15.5 % (11.5-14.5); WHITE BLOOD COUNT 9.7 10^3/ul (4.8-10.8)
[2016-10-15 06:26] LABS: POTASSIUM 4.2 mmol/L (3.5-5.1)
[2016-10-15 06:29] LABS: CREATININE 5.56 mg/dl (0.61-1.24); PHOSPHORUS 3.6 mg/dl (2.5-4.9)
[2016-10-15 06:30] LABS: CALCIUM 8.6 mg/dl (8.4-10.2); MAGNESIUM 2.1 mg/dl (1.7-2.5)
[2016-10-15] MEDS: TRIAMCINOLONE ACET 0.1% 15 GM OINT TOP SCH ×2 (07:31→21:04)
[2016-10-15] MEDS: INSULIN ASPART [NOVOLOG] 3 ML PEN SC SCH ×5 (07:55→21:15)
--- NOTE | 2016-10-15 08:56 | PN ---
DATE: 10/15/2016 SUBJECTIVE: The patient continues to have persistent bacteremia. Etiology is likely from line seps is. I spoke with the patient today about removal of the PermCath after an additional course of hemo dialysis. The patient understood and agrees with the treatment plan. No other events noted. OBJECTIVE: VITAL SIGNS: Blood pressure 155/76, respirations 19, pulse 80, temperature 98.4. HEENT: Head is normocephalic. NECK: Supple. HEART: Regular rate. LUNGS: Showed diminished breath sounds at the base. ABDOMEN: Soft, nontender to palpation. No rebound or guarding. EXTREMITIES: Negative for clubbing or cyanosis. No edema. DERMATOLOGIC: No rashes. MUSCULOSKELETAL: Have no joint effusion. NEUROLOGIC: No change in exam. MEDICATIONS: The patient's medications have been reviewed. LABORATORY DATA: Shows sodium 139, potassium 4.2, chloride 97, BUN 48, creatinine 5.56. White coun t 9.7, hemoglobin 9.4, hematocrit 29.2, platelet count 268. ASSESSMENT: 1. End-stage renal disease. The patient had hemodialysis yesterday and will have dialysis again to day. Following dialysis the patient's PermCath will be removed, as the patient will be on a line ho liday due to sepsis and bacteremia. 2. Sepsis secondary to line infection. Anticipate removal of PermCath today following dialysis. Yash Ferreira was consulted. 3. Cardiomyopathy. The patient is status post cardiac catheterization. At this point will continu e the current treatment plan. Continue ultrafiltration with dialysis. 4. Anemia of chronic disease. Continue to monitor H and H levels, continue Epogen. 5. Atrial fibrillation. Rate controlled. Continue medical management. 6. Mineral bone disorder. Will monitor calcium and phosphorus levels. 7. Sepsis secondary to gram-negative bacteremia. Etiology is secondary to line infection. As stat ed above, the patient will have the PermCath removed. Continue IV antibiotics. Follow up with infe ctious disease. 8. Diabetes. Continue Accu-Cheks and insulin sliding scale. 9. Status post respiratory failure. 10. Hypertension. Continue the current blood pressure regimen. Continue ultrafiltration with dial ysis. Dictated By: NOEMI BOTELLO/NTS Conf#: [id number] DID#: [id number]
[2016-10-15] MEDS ORDERED: BENAZEPRIL 20 MG TAB PO SCH (09:00)
--- NOTE | 2016-10-15 09:55 | CONS ---
Date/Time of Note Date/Time of Note DATE: 10/15/16 TIME: 09:55 Assessment/Plan Assessment/Plan Chief Complaint/Hosp Course ID PROGRESS NOTE TOTAL ABX DAY # =>Vanco IV, Zosyn, Amikacin 24H INTERVAL SUMMARY * Awake, alert, flat affect, hoping PermCath DC today, per RN plan is to DC tomorrow * VSS, no fevers PHYSICAL EXAMINATION: GENERAL: VSS, NAD HEENT: Unremarkable NECK: Trach midline CHEST: Equal chest rise bilaterally, without dyspnea on observation HEART: Pulse RRR ABDOMEN: Soft/peg EXTREMITIES: Warm SKIN: See hard chart skin assessment ID ASSESSMENT: 76 yo M w/PMHx ESRD-HD via PermCath present on admission with: 1. Persistent bacteremia, likely secondary to infected PermCath. * GNR (+)BCx = still pending final ID, C&S 2. Anemia. 3. Atrial fibrillation. 4. Diabetes. 5. Pneumonia. ()MRSA Nares - not checked INVASIVES: PermCath ABX ALLERGY: KNDA CURRENT ABX: ID RECOMMENDATIONS: 1. Continue current ABX 2. DC PermCath pending . . Problems: Consultation Date/Type/Reason Admit Date/Time Oct 05, 2016 at 21:04 Initial Consult Date Type of Consultation: ID Referring Provider: JANAE ELDRIDGE Exam/Review of Systems Vital Signs Vitals Vital Signs Date Time Temp Pulse Resp B/P Pulse Ox O2 Delivery O2 Flow Rate FiO2 10/15/16 08:22 21 10/15/16 08:13 81 10/15/16 07:51 98.4 19 155/76 96 10/15/16 04:26 Room Air 10/13/16 11:42 2.0 Intake and Output 10/14/16 10/14/16 10/15/16 15:00 23:00 07:00 Intake Total 900 ml 350 ml Balance 900 ml 350 ml Results Result Diagram: 10/15/16 0556 10/15/16 0556 Results 24 hrs Laboratory Tests Test 10/14/16 11:10 10/14/16 17:10 10/14/16 20:38 10/15/16 02:31 Bedside Glucose 284 H 241 H 260 H 144 Test 10/15/16 05:56 10/15/16 08:15 White Blood Count 9.7 Red Blood Count 3.45 L Hemoglobin 9.4 #L Hematocrit 29.2 L Mean Corpuscular Volume 84.6 Mean Corpuscular Hemoglobin 27.2 L Mean Corpuscular Hemoglobin Concent 32.2 Red Cell Distribution Width 15.5 H Platelet Count 268 Mean Platelet Volume 10.8 H Neutrophils % 74.3 Lymphocytes % 15.6 Monocytes % 7.2 Eosinophils % 1.9 Basophils % 0.5 Nucleated Red Blood Cells % 0.0 Neutrophils # 7.2 Lymphocytes # 1.5 Monocytes # 0.7 Eosinophils # 0.2 Basophils # 0.1 Nucleated Red Blood Cells # 0.0 Sodium Level 139 Potassium Level 4.2 Chloride Level 97 Carbon Dioxide Level 26 Anion Gap 20 H Blood Urea Nitrogen 48 H Creatinine 5.56 H Glucose Level 168 Calcium Level 8.6 Phosphorus Level 3.6 Magnesium Level 2.1 Random Vancomycin Level 18.2 Bedside Glucose 299 H Medications Medications Current Medications Ondansetron HCl (Zofran Inj) 4 mg Q6H PRN IV NAUSEA AND/OR VOMITING; Start at 21:30 Acetaminophen (Tylenol Tab) 650 mg Q6H PRN PO PAIN LEVEL 1-3 OR FEVER Last administered on 10/12/16 18:00; Admin Dose 650 MG; Start 10/05/16 at 21:30 Acetaminophen/ Hydrocodone Bitart ([place] (5/325)) 1 tab Q6H PRN PO MODERATE PAIN LEVEL 4-6; Start 10/05/16 at 21:30 Morphine Sulfate (morphine) 2 mg Q4H PRN IV SEVERE PAIN LEVEL 7-10; Start 10/05 at 21:30 Docusate Sodium (Colace) 100 mg Q12H PRN PO CONSTIPATION; Start 10/05/16 at 21: 30 Magnesium Hydroxide (Milk Of Mag) 30 ml DAILY PRN PO CONSTIPATION; Start at 21:30 Sodium Biphosphate/ Sodium Phosphate (Fleet Enema) 133 ml DAILY PRN [place] CONSTIPATION; Start 10/05/16 at 21:30 Famotidine (Pepcid) 20 mg DAILY PO Last administered on 10/14/16 08:33; Admin Dose 20 MG; Start 10/06/16 at 09:00 Lorazepam (Ativan) 0.5 mg Q6H PRN IV ANXIETY Last administered on 10/13/16 21: 38; Admin Dose 0.5 MG; Start 10/05/16 at 21:30 Hydralazine HCl (Apresoline) 10 mg Q6H PRN IV ELEVATED SYSTOLIC BP Last administered on 10/14/16 17:50; Admin Dose 10 MG; Start 10/05/16 at 21:30 Clonidine (Catapres) 0.1 mg Q6H PRN PO ELEVATED SYSTOLIC BP; Start 10/05/16 at 21:30 Nitroglycerin (Nitroglycerin (Sl Tab) 0.4 Mg) 1 tab Q5M PRN SL ANGINA; Start at 21:30 Aspirin 325 mg 325 mg DAILY PO Last administered on 10/14/16 08:33; Admin Dose 325 MG; Start 10/06/16 at 09:00 Diltiazem HCl (Cardizem-D5W 125 Mg/125 ml Drip) 125 ml @ 5 mls/hr TITRATE IV ; Start 10/05/16 at 22:00 Diagnostic Test (Pha) (Accucheck) 1 ea 02 XX Last administered on 10/15/16 02: 49; Admin Dose 1 EA; Start 10/07/16 at 02:00 Zolpidem Tartrate (Ambien) 5 mg HS PRN PO INSOMNIA Last administered on 01:08; Admin Dose 5 MG; Start 10/06/16 at 01:00 Miscellaneous Information 1 ea NOTE XX ; Start 10/06/16 at 01:00 Glucose (Glutose) 15 gm Q15M PRN PO DECREASED GLUCOSE; Start 10/06/16 at 01:00 Glucose (Glutose) 22.5 gm Q15M PRN PO DECREASED GLUCOSE; Start 10/06/16 at 01: 00 Dextrose (D50w Syringe) 25 ml Q15M PRN IV DECREASED GLUCOSE; Start 10/06/16 at 01:00 Dextrose (D50w Syringe) 50 ml Q15M PRN IV DECREASED GLUCOSE; Start 10/06/16 at 01:00 Glucagon (Glucagen) 1 mg Q15M PRN IM DECREASED GLUCOSE; Start 10/06/16 at 01:00 Glucose (Glutose) 15 gm Q15M PRN BUCCAL DECREASED GLUCOSE; Start 10/06/16 at 01 :00 Cyanocobalamin (Vitamin B12) 1,000 mcg DAILY PO Last administered on 10/14/16 08:33; Admin Dose 1,000 MCG; Start 10/06/16 at 09:00 Folic Acid (Folic Acid) 0.8 mg DAILY PO Last administered on 10/14/16 08:34; Admin Dose 0.8 MG; Start 10/06/16 at 09:00 Triamcinolone Acetonide (Kenalog 0.1% Oint) 1 applic BID TOP Last administered on 10/14/16 21:19; Admin Dose 1 APPLIC; Start 10/06/16 at 09:00 Ferrous Sulfate (Slow Fe) 142 mg DAILY PO Last administered on 10/14/16 08:33 ; Admin Dose 142 MG; Start 10/07/16 at 09:00 Magnesium Oxide (Mag-Ox 400) 400 mg DAILY PO Last administered on 10/14/16 08: 33; Admin Dose 400 MG; Start 10/06/16 at 13:00 Clopidogrel Bisulfate (plaVIX) 75 mg DAILY PO Last administered on 10/14/16 08 :34; Admin Dose 75 MG; Start 10/06/16 at 12:00 Atorvastatin Calcium (Lipitor) 40 mg QHS PO Last administered on 10/14/16 20: 41; Admin Dose 40 MG; Start 10/06/16 at 21:00 Zolpidem Tartrate (Ambien) 10 mg QHS PRN PO INSOMNIA Last administered on 00:26; Admin Dose 10 MG; Start 10/06/16 at 16:30 Lorazepam (Ativan) 1 mg HS PO Last administered on 10/14/16 20:42; Admin Dose 1 MG; Start 10/07/16 at 21:00 Insulin Glargine (Lantus) 10 unit HS SC Last administered on 10/14/16 20:44; Admin Dose 10 UNIT; Start 10/07/16 at 21:00 Linagliptin (Tradjenta) 5 mg DAILY PO Last administered on 10/14/16 08:33; Admin Dose 5 MG; Start 10/07/16 at 17:00 Metoprolol Succinate (Toprol Xl) 25 mg BID PO Last administered on 10/14/16 20 :42; Admin Dose 25 MG; Start 10/07/16 at 21:00 Heparin Sodium (Porcine) (Heparin (5000 Units/0.5 ml)) 5,000 unit BID SC Last administered on 10/14/16 20:45; Admin Dose 5,000 UNIT; Start 10/10/16 at 12:00 Benazepril HCl (Lotensin) 40 mg QHS PO Last administered on 10/14/16 20:41; Admin Dose 40 MG; Start 10/10/16 at 21:00 Nifedipine 60 mg 60 mg QHS PO Last administered on 10/14/16 20:41; Admin Dose 60 MG; Start 10/10/16 at 21:00 Piperacillin Sod/ Tazobactam Sod (Zosyn 2.25gm/ 50ml (Pmx)) 50 ml @ 100 mls/hr Q8 IVPB Last administered on 10/15/16 05:55; Admin Dose 100 MLS/HR; Start at 11:00 Acetaminophen (Tylenol Tab) 650 mg Q4H PRN PO NON-CARDIAC PAIN LEVEL (1-3) Last administered on 10/14/16 18:39; Admin Dose 650 MG; Start 10/13/16 at 11:00 Morphine Sulfate (morphine) 2 mg Q2H PRN IV FOR NON CARDIAC PAIN (4-10); Start 10/13/16 at 11:00 Al Hydrox/Mg Hydrox/Simethicone (Mag-Al Plus) 30 ml Q4H PRN PO GASTROINTESTINAL UPSET; Start 10/13/16 at 11:00 Ondansetron HCl (Zofran Inj) 4 mg Q4H PRN IV NAUSEA AND/OR VOMITING; Start at 11:00 Amikacin Sulfate (Amikacin Iv Per Pharmacy) AMIKACIN PER PHARMACY NOTE XX ; Start 10/14/16 at 12:00 Benazepril HCl 20 mg 20 mg AM PO ; Start 10/15/16 at 09:00 Vancomycin HCl (Vancocin) 250 ml @ 125 mls/hr Q96H IVPB ; Start 10/15/16 at 15: 00 PALOMO MCKOY NP Oct 15, 2016 09:55
[2016-10-15] MEDS: ASPIRIN (EC) 325 MG TAB PO SCH (10:11)
[2016-10-15] MEDS: FERROUS SULFATE (SR) 142 MG TAB PO SCH (10:11)
[2016-10-15] MEDS: FAMOTIDINE 20 MG TAB PO SCH (10:11)
[2016-10-15] MEDS: FOLIC ACID 0.4 MG TAB PO SCH (10:11)
[2016-10-15] MEDS: CYANOCOBALAMIN 500 MCG TAB PO SCH (10:11)
[2016-10-15] MEDS: CLOPIDOGREL 75 MG TAB PO SCH (10:11)
[2016-10-15] MEDS: MAGNESIUM OXIDE 400 MG TAB PO SCH (10:12)
[2016-10-15] MEDS: HEPARIN 5,000 UNIT/0.5 ML SYG SC SCH ×2 (10:12→20:54)
[2016-10-15] MEDS: METOPROLOL (XL) 25 MG TAB PO SCH ×2 (10:12→20:49)
[2016-10-15] MEDS: LINAGLIPTIN 5 MG TABLET PO SCH (10:12)
--- NOTE | 2016-10-15 12:01 | PN ---
Date/Time of Note Date/Time of Note DATE: 10/15/16 TIME: 12:00 Assessment/Plan Lines/Catheters IV Catheter Type (from Nrsg): Peripheral IV Cloud in Place (from Nrsg): No Assessment/Plan Chief Complaint/Hosp Course IMPRESSION: End-stage renal disease, on dialysis per PermCath, with possible infection. RECOMMENDATIONS: Will dialyze the patient one more time through the catheter and proceed with removal of the catheter Pt on HD now untill 3 pm, will remove the cath tomorrow . Discussed with Dr. Tolbert. Problems: Subjective 24 Hr Interval Summary Constitutional: improved Pain Control: mild Exam/Review of Systems Vital Signs Vitals Vital Signs Date Time Temp Pulse Resp B/P Pulse Ox O2 Delivery O2 Flow Rate FiO2 10/15/16 11:26 98.1 79 19 171/83 98 10/15/16 08:22 21 10/15/16 04:26 Room Air 10/13/16 11:42 2.0 Intake and Output 10/14/16 10/14/16 10/15/16 15:00 23:00 07:00 Intake Total 900 ml 350 ml Balance 900 ml 350 ml Exam ENMT: mucosa pink and moist, nl external ears & nose, nl lips & teeth, nl nasal mucosa & septum Neck: non-tender, supple Respiratory: clear to auscultation, normal air movement Cardiovascular: nl pulses, regular rate and rhythm Gastrointestinal: nl liver, spleen, non-tender, soft Results Result Diagram: 10/15/16 0556 10/15/16 0556 JULIAN MONTES DE OCA MD Oct 15, 2016 12:01
--- NOTE | 2016-10-15 14:16 | PN ---
Date/Time of Note Date/Time of Note DATE: 10/15/16 TIME: 14:12 Assessment/Plan VTE Prophylaxis VTE Prophylaxis Intervention: heparin Lines/Catheters IV [facility]atheter Type (from [facility]): Peripheral IV Urinary Cath still in place: No Assessment/Plan Assessment/Plan 1. Acute respiratory distress secondary to volume overload with underlying end -stage renal disease and congestive heart failure, improved Stable on room air 2. Atrial fibrillation with rapid ventricular response, converted back to sinus now rate controlled 3. NSTEMI type 2 s/p C 10/13/16 with findings: * Moderate obstruction of distal left main but with excellent flow and moderate obstruction of mid LAD with excellent flow. * Widely patent LAD and circumflex stents. * Elevated left heart filling pressures. * No significant aortic stenosis by gradient. 4. End-stage renal disease on hemodialysis. 5. History of diabetes mellitus type 2. Hemoglobin 6.3. 6. Anemia of chronic disease. 7. Known coronary artery disease with recent history of PTCA and stent placement at [facility]. 8. Hypertensive urgency, resolved. 9. Acute on chronic systolic congestive heart failure with Ischemic CM and ejection fraction of 25% 10. Probable line sepsis with Gram negative kait bacteremia: RALSTONIA PICKETTII PLAN: * Planned for removal of PermCath after dialysis today d/t persistent bacteremia. ?ISAAC * Patient is a DNR per sister * continue current mgt / Continue current abx / Continue current supportive care. * Prophylaxis: Heparin / pepcid Subjective 24 Hr Interval Summary Free Text/Dictation * Patient seen and examined. * Getting depressed per sister. Per sister, extent of illness is just now dawning on him * Very irritable as well per nursing report * Patient refused antidepressant stating : I don't want any more meds". Exam/Review of Systems Vital Signs Vitals Vital Signs Date Time Temp Pulse Resp B/P Pulse Ox O2 Delivery O2 Flow Rate FiO2 10/15/16 13:20 77 18 10/15/16 12:43 21 10/15/16 11:26 98.1 171/83 98 10/15/16 04:26 Room Air 10/13/16 11:42 2.0 Intake and Output 10/14/16 10/14/16 10/15/16 15:00 23:00 07:00 Intake Total 900 ml 350 ml Balance 900 ml 350 ml Exam Constitutional: alert, frail, oriented, No distress Psych: anxiety Head: normocephalic Eyes: PERRL Neck: non-tender Respiratory: clear to auscultation, diminished breath sounds Cardiovascular: murmurs/extra sounds, regular rate and rhythm Gastrointestinal: bowel sounds, non-tender, soft Extremities: No edema Neurological: nl mental status, nl speech Results Result Diagram: 10/15/16 0556 10/15/16 0556 Results 24 hrs Laboratory Tests Test 10/14/16 17:10 10/14/16 20:38 10/15/16 02:31 10/15/16 05:56 Bedside Glucose 241 H 260 H 144 White Blood Count 9.7 Red Blood Count 3.45 L Hemoglobin 9.4 #L Hematocrit 29.2 L Mean Corpuscular Volume 84.6 Mean Corpuscular Hemoglobin 27.2 L Mean Corpuscular Hemoglobin Concent 32.2 Red Cell Distribution Width 15.5 H Platelet Count 268 Mean Platelet Volume 10.8 H Neutrophils % 74.3 Lymphocytes % 15.6 Monocytes % 7.2 Eosinophils % 1.9 Basophils % 0.5 Nucleated Red Blood Cells % 0.0 Neutrophils # 7.2 Lymphocytes # 1.5 Monocytes # 0.7 Eosinophils # 0.2 Basophils # 0.1 Nucleated Red Blood Cells # 0.0 Sodium Level 139 Potassium Level 4.2 Chloride Level 97 Carbon Dioxide Level 26 Anion Gap 20 H Blood Urea Nitrogen 48 H Creatinine 5.56 H Glucose Level 168 Calcium Level 8.6 Phosphorus Level 3.6 Magnesium Level 2.1 Random Vancomycin Level 18.2 Test 10/15/16 08:15 10/15/16 11:32 Bedside Glucose 299 H 186 Medications Medications Current Medications Ondansetron HCl (Zofran Inj) 4 mg Q6H PRN IV NAUSEA AND/OR VOMITING; Start at 21:30 Acetaminophen (Tylenol Tab) 650 mg Q6H PRN PO PAIN LEVEL 1-3 OR FEVER Last administered on 10/12/16t 18:00; Admin Dose 650 MG; Start 10/05/16 at 21:30 Acetaminophen/ Hydrocodone Bitart ([place] (5/325)) 1 tab Q6H PRN PO MODERATE PAIN LEVEL 4-6; Start 10/05/16 at 21:30 Morphine Sulfate (morphine) 2 mg Q4H PRN IV SEVERE PAIN LEVEL 7-10; Start 10/05 at 21:30 Docusate Sodium (Colace) 100 mg Q12H PRN PO CONSTIPATION; Start 10/05/16 at 21: 30 Magnesium Hydroxide (Milk Of Mag) 30 ml DAILY PRN PO CONSTIPATION; Start at 21:30 Sodium Biphosphate/ Sodium Phosphate (Fleet Enema) 133 ml DAILY PRN [place] CONSTIPATION; Start 10/05/16 at 21:30 Famotidine (Pepcid) 20 mg DAILY PO Last administered on 10/15/16 10:11; Admin Dose 20 MG; Start 10/06/16 at 09:00 Lorazepam (Ativan) 0.5 mg Q6H PRN IV ANXIETY Last administered on 10/13/16 21: 38; Admin Dose 0.5 MG; Start 10/05/16 at 21:30 Hydralazine HCl (Apresoline) 10 mg Q6H PRN IV ELEVATED SYSTOLIC BP Last administered on 10/14/16 17:50; Admin Dose 10 MG; Start 10/05/16 at 21:30 Clonidine (Catapres) 0.1 mg Q6H PRN PO ELEVATED SYSTOLIC BP; Start 10/05/16 at 21:30 Nitroglycerin (Nitroglycerin (Sl Tab) 0.4 Mg) 1 tab Q5M PRN SL ANGINA; Start at 21:30 Aspirin 325 mg 325 mg DAILY PO Last administered on 10/15/16 10:11; Admin Dose 325 MG; Start 10/06/16 at 09:00 Diltiazem HCl (Cardizem-D5W 125 Mg/125 ml Drip) 125 ml @ 5 mls/hr TITRATE IV ; Start 10/05/16 at 22:00 Diagnostic Test (Pha) (Accucheck) 1 ea 02 XX Last administered on 10/15/16 02: 49; Admin Dose 1 EA; Start 10/07/16 at 02:00 Zolpidem Tartrate (Ambien) 5 mg HS PRN PO INSOMNIA Last administered on 01:08; Admin Dose 5 MG; Start 10/06/16 at 01:00 Miscellaneous Information 1 ea NOTE XX ; Start 10/06/16 at 01:00 Glucose (Glutose) 15 gm Q15M PRN PO DECREASED GLUCOSE; Start 10/06/16 at 01:00 Glucose (Glutose) 22.5 gm Q15M PRN PO DECREASED GLUCOSE; Start 10/06/16 at 01: 00 Dextrose (D50w Syringe) 25 ml Q15M PRN IV DECREASED GLUCOSE; Start 10/06/16 at 01:00 Dextrose (D50w Syringe) 50 ml Q15M PRN IV DECREASED GLUCOSE; Start 10/06/16 at 01:00 Glucagon (Glucagen) 1 mg Q15M PRN IM DECREASED GLUCOSE; Start 10/06/16 at 01:00 Glucose (Glutose) 15 gm Q15M PRN BUCCAL DECREASED GLUCOSE; Start 10/06/16 at 01 :00 Cyanocobalamin (Vitamin B12) 1,000 mcg DAILY PO Last administered on 10/15/16 10:11; Admin Dose 1,000 MCG; Start 10/06/16 at 09:00 Folic Acid (Folic Acid) 0.8 mg DAILY PO Last administered on 10/15/16 10:11; Admin Dose 0.8 MG; Start 10/06/16 at 09:00 Triamcinolone Acetonide (Kenalog 0.1% Oint) 1 applic BID TOP Last administered on 10/14/16 21:19; Admin Dose 1 APPLIC; Start 10/06/16 at 09:00 Ferrous Sulfate (Slow Fe) 142 mg DAILY PO Last administered on 10/15/16 10:11 ; Admin Dose 142 MG; Start 10/07/16 at 09:00 Magnesium Oxide (Mag-Ox 400) 400 mg DAILY PO Last administered on 10/15/16 10: 12; Admin Dose 400 MG; Start 10/06/16 at 13:00 Clopidogrel Bisulfate (plaVIX) 75 mg DAILY PO Last administered on 10/15/16 10 :11; Admin Dose 75 MG; Start 10/06/16 at 12:00 Atorvastatin Calcium (Lipitor) 40 mg QHS PO Last administered on 10/14/16 20: 41; Admin Dose 40 MG; Start 10/06/16 at 21:00 Zolpidem Tartrate (Ambien) 10 mg QHS PRN PO INSOMNIA Last administered on 00:26; Admin Dose 10 MG; Start 10/06/16 at 16:30 Lorazepam (Ativan) 1 mg HS PO Last administered on 10/14/16 20:42; Admin Dose 1 MG; Start 10/07/16 at 21:00 Insulin Glargine (Lantus) 10 unit HS SC Last administered on 10/14/16 20:44; Admin Dose 10 UNIT; Start 10/07/16 at 21:00 Linagliptin (Tradjenta) 5 mg DAILY PO Last administered on 10/15/16 10:12; Admin Dose 5 MG; Start 10/07/16 at 17:00 Metoprolol Succinate (Toprol Xl) 25 mg BID PO Last administered on 10/15/16 10 :12; Admin Dose 25 MG; Start 10/07/16 at 21:00 Heparin Sodium (Porcine) (Heparin (5000 Units/0.5 ml)) 5,000 unit BID SC Last administered on 10/14/16 20:45; Admin Dose 5,000 UNIT; Start 10/10/16 at 12:00 Benazepril HCl (Lotensin) 40 mg QHS PO Last administered on 10/14/16 20:41; Admin Dose 40 MG; Start 10/10/16 at 21:00 Nifedipine 60 mg 60 mg QHS PO Last administered on 10/14/16 20:41; Admin Dose 60 MG; Start 10/10/16 at 21:00 Piperacillin Sod/ Tazobactam Sod (Zosyn 2.25gm/ 50ml (Pmx)) 50 ml @ 100 mls/hr Q8 IVPB Last administered on 10/15/16 05:55; Admin Dose 100 MLS/HR; Start at 11:00 Acetaminophen (Tylenol Tab) 650 mg Q4H PRN PO NON-CARDIAC PAIN LEVEL (1-3) Last administered on 10/14/16 18:39; Admin Dose 650 MG; Start 10/13/16 at 11:00 Morphine Sulfate (morphine) 2 mg Q2H PRN IV FOR NON CARDIAC PAIN (4-10); Start 10/13/16 at 11:00 Al Hydrox/Mg Hydrox/Simethicone (Mag-Al Plus) 30 ml Q4H PRN PO GASTROINTESTINAL UPSET; Start 10/13/16 at 11:00 Ondansetron HCl (Zofran Inj) 4 mg Q4H PRN IV NAUSEA AND/OR VOMITING; Start at 11:00 Amikacin Sulfate (Amikacin Iv Per Pharmacy) AMIKACIN PER PHARMACY NOTE XX ; Start 10/14/16 at 12:00 Benazepril HCl 20 mg 20 mg AM PO Last administered on 10/15/16t 10:11; Admin Dose 20 MG; Start 10/15/16 at 09:00 Vancomycin HCl (Vancocin) 250 ml @ 125 mls/hr Q96H IVPB ; Start 10/15/16 at 15: 00 XANDER ROCHA Oct 15, 2016 14:16
[2016-10-15] MEDS ORDERED: LIDOCAINE 1% (MPF) 30 ML INJ INJ PRN (14:30)
[2016-10-15] MEDS ORDERED: SOD CHLORIDE 0.9% IVPB SCH (15:00)
[2016-10-15] MEDS ORDERED: AMIKACIN IVPB SCH (15:00)
[2016-10-15] MEDS ORDERED: VANCOMYCIN 1 GM in NS 250 ML IVPB SCH (15:00)
--- NOTE | 2016-10-15 16:20 | PN ---
DATE: 10/15/2016 On questioning, the patient has no complaint of chest pain or shortness of breath and appears comfor table. PHYSICAL EXAMINATION: GENERAL: He is conscious, alert and oriented. Appears to be in no acute distress. VITAL SIGNS: Blood pressure is 171/83, heart rate of 75. He is afebrile. NECK: ____ arteries. CHEST: ____Bilaterally symmetrical. Nontender chest with a dialysis catheter in the right upper ch est. HEART: The PMI is localized in the fourth intercostal space. S1 and S2 are regular and there is a II/ systolic murmur is heard at the apex. LUNGS: Clear to percussion and auscultation. ABDOMEN: Soft and nontender belly without any organomegaly. Bowel sounds present. No ____palpab le. EXTREMITIES: With good femoral and pedal pulses. LABORATORIES: So far reveal his white count is down to 9.7, which is normal now. Hemoglobin is bet ter at 9.4 today. Platelet count is 268,000 and his chemistries were that his BUN and creatinine ar e 48 and 5.56 respectively. IMPRESSION: 1. History of atrial fibrillation, but the patient is in sinus rhythm at present with a first degre e atrioventricular block. 2. Uncontrolled hypertension. 3. ____ depressions. 4. Cardiomyopathy with ejection fraction of 45 per cent in the past, but now 25 per cent. 5. History of percutaneous transhepatic cholangiogram and stent placement. RECOMMENDATIONS: He is on benazepril 20 mg q. a.m. and 40 mg. p.o. q. p.m. I am going to change th e benazepril to the 40 mg p.o. b.i.d. and continue with his nifedipine as before. Dictated By: LAMONT BANG MD, RA/CHANTALE Conf#: [id number] DID#: [id number]
[2016-10-15] MEDS: LORAZEPAM 0.5 MG TAB PO SCH (20:47)
[2016-10-15] MEDS: NIFEdipine (XL) 60 MG TAB PO SCH (20:48)
[2016-10-15] MEDS: BENAZEPRIL 40 MG TAB PO SCH (20:49)
[2016-10-15] MEDS: ATORVASTATIN 40 MG TAB PO SCH (20:49)
[2016-10-15] MEDS: INSULIN GLARGINE [LANtus] 3 ML PEN SC SCH (21:15)
[2016-10-16] VITALS (11 sets, daily range): BP systolic 129–170; BP diastolic 62–85; PULSE 71–80; RESP 16–18
[2016-10-16] MEDS: ACCU-CHEK XX SCH (02:00)
[2016-10-16] MEDS: PIPER-TAZO 2.25 GM (PMX) 50 ML IVPB SCH ×3 (05:41→22:26)
--- NOTE | 2016-10-16 07:30 | PN ---
Date/Time of Note Date/Time of Note DATE: 10/16/16 TIME: 07: Assessment/Plan VTE Prophylaxis VTE Prophylaxis Intervention: heparin Lines/Catheters IV [facility]ter Type (from [facility]): Peripheral IV Urinary Cath still in place: No Assessment/Plan Assessment/Plan 1. Acute respiratory distress secondary to volume overload with underlying end -stage renal disease and congestive heart failure, improved Stable on room air 2. Atrial fibrillation with rapid ventricular response, converted back to sinus now rate controlled 3. NSTEMI type 2 s/p C 10/13/16 with findings: * Moderate obstruction of distal left main but with excellent flow and moderate obstruction of mid LAD with excellent flow. * Widely patent LAD and circumflex stents. * Elevated left heart filling pressures. * No significant aortic stenosis by gradient. 4. End-stage renal disease on hemodialysis. 5. History of diabetes mellitus type 2. Hemoglobin 6.3. 6. Anemia of chronic disease. 7. Known coronary artery disease with recent history of PTCA and stent placement at [facility]. 8. Hypertensive urgency, resolved. 9. Acute on chronic systolic congestive heart failure with Ischemic CM and ejection fraction of 25% 10. Probable line sepsis with Gram negative kait bacteremia: RALSTONIA PICKETTII 11. Mild Chronic dementia with some mild underlying confusion 12. Mild Depression PLAN: * Planned for removal of PermCath after dialysis today d/t persistent bacteremia. ?ISAAC * Patient is a DNR per sister * continue current mgt / Continue current abx / Continue current supportive care. * Prophylaxis: Heparin / pepcid Subjective 24 Hr Interval Summary Free Text/Dictation Patient seen and examined. no new issues Exam/Review of Systems Vital Signs Vitals Vital Signs Date Time Temp Pulse Resp B/P Pulse Ox O2 Delivery O2 Flow Rate FiO2 10/16/16 04:00 80 10/16/16 04:00 97.9 17 147/85 99 Room Air 10/15/16 15:46 21 10/13/16 11:42 2.0 Intake and Output 10/15/16 10/15/16 10/16/16 15:00 23:00 07:00 Intake Total 500 ml 50 ml 700 ml Output Total 2500 ml Balance -2000 ml 50 ml 700 ml Exam Constitutional: alert, frail, oriented, No distress Psych: anxiety Head: normocephalic Eyes: PERRL Neck: non-tender Respiratory: clear to auscultation, diminished breath sounds Cardiovascular: murmurs/extra sounds, regular rate and rhythm Gastrointestinal: bowel sounds, non-tender, soft Extremities: No edema Neurological: nl mental status, nl speech Results Result Diagram: 10/15/16 0556 10/15/16 0556 Results 24 hrs Laboratory Tests Test 10/15/16 08:15 10/15/16 11:32 10/15/16 17:08 10/15/16 21:02 Bedside Glucose 299 H 186 251 H 312 H Test 10/16/16 02:24 10/16/16 02:45 10/16/16 03:13 Bedside Glucose 70 72 109 Medications Medications Current Medications Ondansetron HCl (Zofran Inj) 4 mg Q6H PRN IV NAUSEA AND/OR VOMITING; Start at 21:30 Acetaminophen (Tylenol Tab) 650 mg Q6H PRN PO PAIN LEVEL 1-3 OR FEVER Last administered on 10/12/16 18:00; Admin Dose 650 MG; Start 10/05/16 at 21:30 Acetaminophen/ Hydrocodone Bitart ([place] (5/325)) 1 tab Q6H PRN PO MODERATE PAIN LEVEL 4-6; Start 10/05/16 at 21:30 Morphine Sulfate (morphine) 2 mg Q4H PRN IV SEVERE PAIN LEVEL 7-10; Start 10/05 at 21:30 Docusate Sodium (Colace) 100 mg Q12H PRN PO CONSTIPATION; Start 10/05/16 at 21: 30 Magnesium Hydroxide (Milk Of Mag) 30 ml DAILY PRN PO CONSTIPATION; Start at 21:30 Sodium Biphosphate/ Sodium Phosphate (Fleet Enema) 133 ml DAILY PRN SD CONSTIPATION; Start 10/05/16 at 21:30 Famotidine (Pepcid) 20 mg DAILY PO Last administered on 10/15/16 10:11; Admin Dose 20 MG; Start 10/06/16 at 09:00 Lorazepam (Ativan) 0.5 mg Q6H PRN IV ANXIETY Last administered on 10/13/16 21: 38; Admin Dose 0.5 MG; Start 10/05/16 at 21:30 Hydralazine HCl (Apresoline) 10 mg Q6H PRN IV ELEVATED SYSTOLIC BP Last administered on 10/14/16 17:50; Admin Dose 10 MG; Start 10/05/16 at 21:30 Clonidine (Catapres) 0.1 mg Q6H PRN PO ELEVATED SYSTOLIC BP; Start 10/05/16 at 21:30 Nitroglycerin (Nitroglycerin (Sl Tab) 0.4 Mg) 1 tab Q5M PRN SL ANGINA; Start at 21:30 Aspirin 325 mg 325 mg DAILY PO Last administered on 10/15/16 10:11; Admin Dose 325 MG; Start 10/06/16 at 09:00 Diltiazem HCl (Cardizem-D5W 125 Mg/125 ml Drip) 125 ml @ 5 mls/hr TITRATE IV ; Start 10/05/16 at 22:00 Diagnostic Test (Pha) (Accucheck) 1 ea 02 XX Last administered on 10/16/16 02: 00; Admin Dose 1 EA; Start 10/07/16 at 02:00 Zolpidem Tartrate (Ambien) 5 mg HS PRN PO INSOMNIA Last administered on 01:08; Admin Dose 5 MG; Start 10/06/16 at 01:00 Miscellaneous Information 1 ea NOTE XX ; Start 10/06/16 at 01:00 Glucose (Glutose) 15 gm Q15M PRN PO DECREASED GLUCOSE; Start 10/06/16 at 01:00 Glucose (Glutose) 22.5 gm Q15M PRN PO DECREASED GLUCOSE; Start 10/06/16 at 01: 00 Dextrose (D50w Syringe) 25 ml Q15M PRN IV DECREASED GLUCOSE; Start 10/06/16 at 01:00 Dextrose (D50w Syringe) 50 ml Q15M PRN IV DECREASED GLUCOSE; Start 10/06/16 at 01:00 Glucagon (Glucagen) 1 mg Q15M PRN IM DECREASED GLUCOSE; Start 10/06/16 at 01:00 Glucose (Glutose) 15 gm Q15M PRN BUCCAL DECREASED GLUCOSE; Start 10/06/16 at 01 :00 Cyanocobalamin (Vitamin B12) 1,000 mcg DAILY PO Last administered on 10/15/16 10:11; Admin Dose 1,000 MCG; Start 10/06/16 at 09:00 Folic Acid (Folic Acid) 0.8 mg DAILY PO Last administered on 10/15/16 10:11; Admin Dose 0.8 MG; Start 10/06/16 at 09:00 Triamcinolone Acetonide (Kenalog 0.1% Oint) 1 applic BID TOP Last administered on 10/15/16 21:04; Admin Dose 1 APPLIC; Start 10/06/16 at 09:00 Ferrous Sulfate (Slow Fe) 142 mg DAILY PO Last administered on 10/15/16 10:11 ; Admin Dose 142 MG; Start 10/07/16 at 09:00 Magnesium Oxide (Mag-Ox 400) 400 mg DAILY PO Last administered on 10/15/16 10: 12; Admin Dose 400 MG; Start 10/06/16 at 13:00 Clopidogrel Bisulfate (plaVIX) 75 mg DAILY PO Last administered on 10/15/16 10 :11; Admin Dose 75 MG; Start 10/06/16 at 12:00 Atorvastatin Calcium (Lipitor) 40 mg QHS PO Last administered on 10/15/16 20: 49; Admin Dose 40 MG; Start 10/06/16 at 21:00 Zolpidem Tartrate (Ambien) 10 mg QHS PRN PO INSOMNIA Last administered on 23:22; Admin Dose 10 MG; Start 10/06/16 at 16:30 Lorazepam (Ativan) 1 mg HS PO Last administered on 10/15/16 20:47; Admin Dose 1 MG; Start 10/07/16 at 21:00 Insulin Glargine (Lantus) 10 unit HS SC Last administered on 10/15/16 21:15; Admin Dose 10 UNIT; Start 10/07/16 at 21:00 Linagliptin (Tradjenta) 5 mg DAILY PO Last administered on 10/15/16 10:12; Admin Dose 5 MG; Start 10/07/16 at 17:00 Metoprolol Succinate (Toprol Xl) 25 mg BID PO Last administered on 10/15/16 20 :49; Admin Dose 25 MG; Start 10/07/16 at 21:00 Heparin Sodium (Porcine) (Heparin (5000 Units/0.5 ml)) 5,000 unit BID SC Last administered on 10/15/16 20:54; Admin Dose 5,000 UNIT; Start 10/10/16 at 12:00 Nifedipine 60 mg 60 mg QHS PO Last administered on 10/15/16 20:48; Admin Dose 60 MG; Start 10/10/16 at 21:00 Piperacillin Sod/ Tazobactam Sod (Zosyn 2.25gm/ 50ml (Pmx)) 50 ml @ 100 mls/hr Q8 IVPB Last administered on 10/16/16 05:41; Admin Dose 100 MLS/HR; Start at 11:00 Acetaminophen (Tylenol Tab) 650 mg Q4H PRN PO NON-CARDIAC PAIN LEVEL (1-3) Last administered on 10/14/16 18:39; Admin Dose 650 MG; Start 10/13/16 at 11:00 Morphine Sulfate (morphine) 2 mg Q2H PRN IV FOR NON CARDIAC PAIN (4-10); Start 10/13/16 at 11:00 Al Hydrox/Mg Hydrox/Simethicone (Mag-Al Plus) 30 ml Q4H PRN PO GASTROINTESTINAL UPSET; Start 10/13/16 at 11:00 Ondansetron HCl (Zofran Inj) 4 mg Q4H PRN IV NAUSEA AND/OR VOMITING; Start at 11:00 Amikacin Sulfate AMIKACIN PER PHARMACY NOTE XX ; Start 10/14/16 at 12:00 Vancomycin HCl (Vancocin) 250 ml @ 125 mls/hr Q96H IVPB Last administered on 14:53; Admin Dose 125 MLS/HR; Start 10/15/16 at 15:00 Lidocaine (Xylocaine 1% (Mpf)) 30 ml ONCE PRN INJ ANESTHESIA; Start 10/15/16 at 14:30 Benazepril HCl (Lotensin) 40 mg BID PO Last administered on 10/15/16 20:49; Admin Dose 40 MG; Start 10/15/16 at 21:00 XANDER ROCHA Oct 16, 2016 07:30
[2016-10-16] MEDS: INSULIN ASPART [NOVOLOG] 3 ML PEN SC SCH ×4 (07:55→20:31)
[2016-10-16] MEDS: HEPARIN 5,000 UNIT/0.5 ML SYG SC SCH ×2 (09:00→20:46)
[2016-10-16] MEDS: TRIAMCINOLONE ACET 0.1% 15 GM OINT TOP SCH ×2 (09:00→20:39)
[2016-10-16] MEDS: ASPIRIN (EC) 325 MG TAB PO SCH (09:08)
[2016-10-16] MEDS: FOLIC ACID 0.4 MG TAB PO SCH (09:09)
[2016-10-16] MEDS: BENAZEPRIL 40 MG TAB PO SCH ×2 (09:11→20:51)
[2016-10-16] MEDS: MAGNESIUM OXIDE 400 MG TAB PO SCH (09:12)
[2016-10-16] MEDS: FAMOTIDINE 20 MG TAB PO SCH (09:13)
[2016-10-16] MEDS: CLOPIDOGREL 75 MG TAB PO SCH (09:14)
[2016-10-16] MEDS: FERROUS SULFATE (SR) 142 MG TAB PO SCH (09:15)
[2016-10-16] MEDS: METOPROLOL (XL) 25 MG TAB PO SCH ×2 (09:17→20:50)
[2016-10-16] MEDS: LINAGLIPTIN 5 MG TABLET PO SCH (09:18)
[2016-10-16] MEDS: CYANOCOBALAMIN 500 MCG TAB PO SCH (09:19)
--- NOTE | 2016-10-16 09:46 | PN ---
DATE: 10/16/2016 SUBJECTIVE: The patient is stable. No acute events overnight. The patient had hemodialysis yester day. The patient is pending removal of PermCath possibly today. No other events noted. OBJECTIVE: VITAL SIGNS: Blood pressure 158/81, respiration 18, pulse 77, temperature 97.9. HEENT: Head is normocephalic. NECK: Supple. HEART: Regular rate. LUNGS: Show diminished breath sounds at the base. ABDOMEN: Soft, nontender to palpation. No rebound or guarding. EXTREMITIES: Negative for clubbing, cyanosis, no edema. DERMATOLOGIC: No rashes. MUSCULOSKELETAL: No joint effusions. NEUROLOGIC: No change in exam. MEDICATIONS: Have been reviewed. LABORATORY DATA: Has been reviewed. ASSESSMENT AND PLAN: 1. End-stage renal disease. The patient had hemodialysis yesterday. Anticipate PermCath removal t porter. We will monitor for daily dialytic needs. 2. Sepsis secondary to line infection. The patient's PermCath will be removed by Dr. Ferreira. 3. Cardiomyopathy status post cardiac catheterization. Continue current treatment plan. Continue medical management. 4. Anemia of chronic disease. Continue to monitor H and H levels. Continue Epogen. 5. Atrial fibrillation, rate controlled. Continue medical management. 6. Mineral bone disorder. Continue to monitor calcium and phosphorus levels. 7. Diabetes. Continue Accu-Cheks, insulin sliding scale. 8. Status post respiratory failure. 9. Hypertension. Continue current blood pressure regimen. Continue ultrafiltration with dialysis. Dictated By: NOEMI BOTELLO/CHANTALE Conf#: [id number] DID#: [id number]
[2016-10-16 10:27] LABS: ADD SCAN DIFF NO
[2016-10-16 10:35] LABS: BASOPHILS % 0.6 % (0.0-2.0); EOSINOPHILS # 0.1 10^3/ul (0.0-0.5); EOSINOPHILS % 1.6 % (0.0-7.0); HEMATOCRIT 30.5 % (42.0-52.0); HEMOGLOBIN 9.4 g/dl (14.0-18.0); LYMPHOCYTES # 1.3 10^3/ul (0.8-2.9); LYMPHOCYTES % 21.3 % (15.0-51.0); MEAN CORPUSCULAR HEMOGLOBIN 26.5 pg (29.0-33.0); MEAN CORPUSCULAR HGB CONC 30.8 g/dl (32.0-37.0); MEAN CORPUSCULAR VOLUME 85.9 fl (82.0-101.0); MEAN PLATELET VOLUME 10.9 fl (7.4-10.4); MONOCYTE # 0.7 10^3/ul (0.3-0.9); MONOCYTES % 10.4 % (0.0-11.0); NEUTROPHIL # 4.1 10^3/ul (1.6-7.5); NEUTROPHILS % 65.5 % (39.0-77.0); PLATELET COUNT 245 10^3/UL (140-415); RED BLOOD COUNT 3.55 10^6/ul (4.70-6.10); RED CELL DISTRIBUTION WIDTH 15.4 % (11.5-14.5); WHITE BLOOD COUNT 6.2 10^3/ul (4.8-10.8)
[2016-10-16 10:51] LABS: POTASSIUM 4.1 mmol/L (3.5-5.1)
[2016-10-16 10:53] LABS: CREATININE 4.89 mg/dl (0.61-1.24)
[2016-10-16 10:54] LABS: CALCIUM 8.4 mg/dl (8.4-10.2)
--- NOTE | 2016-10-16 13:52 | PN ---
DATE: 10/16/2016 On questioning, the patient denies any chest pain or shortness of breath, dizziness or palpitations. EXAMINATION: VITAL SIGNS: Blood pressure slightly elevated at 147/85 but has been gradually coming down. Heart rate is 80 and respiratory rate is 17. NECK: JVP not raised and carotid pulses with normal upstrokes. CHEST: Bilaterally symmetrical. HEART: PMI localized in the fourth intercostal space. S1, S2 regular. A I/ systolic murmur is h eard at the apex. LUNGS: Clear to percussion and auscultation. ABDOMEN: Soft and nontender belly without organomegaly. Bowel sounds present. No organomegaly mignon reciated. EXTREMITIES: Good femoral and pedal pulses. No pedal edema. No clubbing, no cyanosis. LABORATORY DATA: So far there are no CBCs or chemistries today, but blood sugar is slightly elevate d at 109, and there are no new imaging studies. IMPRESSION: 1. History of atrial fibrillation, but the patient is in sinus rhythm now; telemetry is revealing s inus rhythm. 2. Hypertension, which is getting under better control now. 3. Cardiomyopathy with ejection fraction of 45% in the past, but now it is 25%. 4. History of coronary angioplasty and stenting. 5. [id number] myocardial infarction. RECOMMENDATIONS: Continue same treatment from cardiac standpoint. Dictated By: LAMONT BANG MD, RA/CHANTALE Conf#: [id number] DID#: [id number]
--- NOTE | 2016-10-16 18:26 | CONS ---
Date/Time of Note Date/Time of Note DATE: 10/16/16 TIME: 18:15 Assessment/Plan Assessment/Plan Chief Complaint/Hosp Course ID PROGRESS NOTE TOTAL ABX DAY #12 =>Vanco IV, Zosyn, Amikacin FINAL ID GNR: BLOOD CULTURE Final BCULT GRAM BOTTLE 1 Gram negative rods . seen on gram stain of the broth Organism 1 GRAM NEGATIVE MANDIE CRITICAL TEST VALUE BTL 1 . PHONED TO & READ BACK BY MYKE VALLE,TEL, AT 1101, 10/08/16, HN. FINAL IDENTIFICATION: GRAM NEGATIVE RODS IDENTIFIED RALSTONIA PICKETTII NO DEFINITIVE GUIDELINES. POTENTIALLY ACTIVE AGENTS INCLUDE PIPERACILLIN, CEFTAZIDIME, IMIPENEM, CIPROFLOXACIN, CHLORAMPHENICOL, AND TRIMETHOPRIM/SULFAMETHOXAZOLE 24H INTERVAL SUMMARY * Awake, alert, flat affect,frail 76 yo NAD * VSS, no fevers PHYSICAL EXAMINATION: GENERAL: VSS, NAD HEENT: Unremarkable NECK: Trach midline CHEST: Equal chest rise bilaterally, without dyspnea on observation HEART: Pulse RRR ABDOMEN: Soft/peg EXTREMITIES: Warm SKIN: See hard chart skin assessment ID ASSESSMENT: 76 yo M w/PMHx ESRD-HD via PermCath present on admission with: 1. Persistent bacteremia, likely secondary to infected PermCath. * GNR (+)BCx = RALSTONIA PICKETTII * SEE LITERATURE REVIEW BELOW for ABX of CHOICE: Quinolones, Cephalosporins ( cefotaxime and ceftazidime), Bactrim, & piperacillin 2. Anemia. 3. Atrial fibrillation. 4. Diabetes. 5. Pneumonia. 6. ?Opportunistic staph UTI ? URINE CULTURE Final Organism 1 COAGULASE NEGATIVE STAPH COLONY COUNT >100,000 CFU/ml ()MRSA Nares - not checked INVASIVES: PermCath ABX ALLERGY: KNDA CURRENT ABX: # =>Vanco IV, Zosyn, Amikacin ID RECOMMENDATIONS: 1. PermCath DC 2. DC Amikacin => RALSTONIA PICKETTII = RESISTANT TO Aminoglycoside 3. Continue Zosyn & Vanco IV while inpatient -> Change to Levaquin vs Bactrim renal dose upon DC [email or web address] [id number] Journal of Medical Microbiology (2013), 62, [id number] DOI 10.1099/m.[id number] The antibiotic susceptibility of water-based bacteria Ralstonia pickettii and Ralstonia insidiosa Yovany Elias and Haven Velasquez SELECTED PORTIONS OF ARTICLE CITED BELOW * ... [R. pickettii ]were highly resistant to the aminoglycoside gentamicin (. 256 mg ml1, 51 isolates of R. pickettii and 15 isolates of R. insidiosa) and the b-lactam antibiotic aztreonam (.256 mg ml1, 52 isolates of R. pickettii and 15 isolates of R. insidiosa) and variably resistant to the ticarcillin/ clavulanic acid mix (.256 mg ml1, 31 isolates of R. pickettii and 14 isolates ofR. insidiosa). For the carbapenem antibiotic, meropenem, six isolates of R. pickettii and one isolate of R. insidiosa were found to be resistant and the rest susceptible. * All isolates were susceptible to the quinolones (ciprofloxacin and ofloxacin) , the tetracyclines (tetracycline and minocycline),the cephalosporins ( cefotaxime and ceftazidime), the folate pathway inhibitor (trimethoprim/ sulfamethoxazole) and the extended spectrum b-lactam antibiotic of the ureidopenicillin class (piperacillin). DISCUSSION * R. pickettii and R. insidiosa are a growing problem inhospital (and industrial ) settings due their ability to survive and thrive in water. In our results ( Table 4, Table S1, Table S2, Figs S1S24) cefotaxime (P,0.001), ciprofloxacin(P, 0.001), ofloxacin (P50.421), tetracycline (P50.934) and trimethoprim/ sulfamethoxazole (P,0.001) [id number] % correlation of the disc diffusion and ANTWON results for R. pickettii. * Poor correlation rates were found with ceftazidime, gentamicin, meropenem, piperacillinand ticarcillin/clavulanic acid for R. pickettii, and cefotaxime, gentamicin and tetracycline for R. insidiosa. * Similar variation between ANTWON and disc diffusion results was found in a comparable study that was carried out on Stenotrophomonas maltophilia (Sandra et al., 2004, Radha et al., 2005). Journal of Infectious Diseases & Therapy * Ralstonia Pickettii Bacteremia * Rozina Minor, Maninder Knox* and Mariya Denton * Citation: Mily Wills, Lisette P, Bertin Siu (2014) Ralstonia Pickettii Bacteremia. J Infect Dis Ther 2:179. doi: 10.4172/5064-5599.6171750 Ralstonia Pickettii is an aerobic, gram negative non-fermentative bacterium. Presumed to be an environmental organism it has been reported from soil, water and plants [1]. Generally not associated with [place] human [place]gio, it can be a commensal in the upper respiratory tract and causes disease in patients with waning immunity [1]. As mentioned in literature R. pickettii has been reported to cause respiratory tract infections, meningitis, peritonitis and sepsis [1-4] . Transmission may occur due to contaminated medical devices or solutions generally encountered in health care facilities. R. picketti has been reported to cause outbreaks also [5]. .... Discussion The classification of R. pickettii has undergone many taxonomic changes. Previously identified as Burkholderia, it now has an independent status [2] Emerging as an important pathogen in health care facilities, its causative role in patient morbidity cannot be ignored. ... . Problems: Consultation Date/Type/Reason Admit Date/Time Oct 05, 2016 at 21:04 Type of Consultation: ID Referring Provider: JANAE ELDRIDGE Exam/Review of Systems Vital Signs Vitals Vital Signs Date Time Temp Pulse Resp B/P Pulse Ox O2 Delivery O2 Flow Rate FiO2 10/16/16 16:00 74 10/16/16 15:00 98.4 18 170/62 95 10/16/16 04:00 Room Air 10/15/16 15:46 21 10/13/16 11:42 2.0 Intake and Output 10/15/16 10/15/16 10/16/16 15:00 23:00 07:00 Intake Total 500 ml 50 ml 700 ml Output Total 2500 ml Balance -2000 ml 50 ml 700 ml Results Result Diagram: 10/16/16 1000 10/16/16 1000 Results 24 hrs Laboratory Tests Test 10/15/16 21:02 10/16/16 02:24 10/16/16 02:45 10/16/16 03:13 Bedside Glucose 312 H 70 72 109 Test 10/16/16 08:07 10/16/16 10:00 10/16/16 12:20 10/16/16 17:37 Bedside Glucose 153 158 253 H White Blood Count 6.2 # Red Blood Count 3.55 L Hemoglobin 9.4 L Hematocrit 30.5 L Mean Corpuscular Volume 85.9 Mean Corpuscular Hemoglobin 26.5 L Mean Corpuscular Hemoglobin Concent 30.8 L Red Cell Distribution Width 15.4 H Platelet Count 245 Mean Platelet Volume 10.9 H Neutrophils % 65.5 Lymphocytes % 21.3 Monocytes % 10.4 Eosinophils % 1.6 Basophils % 0.6 Nucleated Red Blood Cells % 0.0 Neutrophils # 4.1 Lymphocytes # 1.3 Monocytes # 0.7 Eosinophils # 0.1 Basophils # 0.0 Nucleated Red Blood Cells # 0.0 Sodium Level 137 Potassium Level 4.1 Chloride Level 99 Carbon Dioxide Level 27 Anion Gap 15 Blood Urea Nitrogen 38 H Creatinine 4.89 H Glucose Level 155 Calcium Level 8.4 Magnesium Level 2.0 Medications Medications Current Medications Ondansetron HCl (Zofran Inj) 4 mg Q6H PRN IV NAUSEA AND/OR VOMITING; Start at 21:30 Acetaminophen (Tylenol Tab) 650 mg Q6H PRN PO PAIN LEVEL 1-3 OR FEVER Last administered on 10/12/16t 18:00; Admin Dose 650 MG; Start 10/05/16 at 21:30 Acetaminophen/ Hydrocodone Bitart ([place] (5/325)) 1 tab Q6H PRN PO MODERATE PAIN LEVEL 4-6; Start 10/05/16 at 21:30 Morphine Sulfate (morphine) 2 mg Q4H PRN IV SEVERE PAIN LEVEL 7-10; Start 10/05 at 21:30 Docusate Sodium (Colace) 100 mg Q12H PRN PO CONSTIPATION; Start 10/05/16 at 21: 30 Magnesium Hydroxide (Milk Of Mag) 30 ml DAILY PRN PO CONSTIPATION; Start at 21:30 Sodium Biphosphate/ Sodium Phosphate (Fleet Enema) 133 ml DAILY PRN [place] CONSTIPATION; Start 10/05/16 at 21:30 Famotidine (Pepcid) 20 mg DAILY PO Last administered on 10/16/16 09:13; Admin Dose 20 MG; Start 10/06/16 at 09:00 Lorazepam (Ativan) 0.5 mg Q6H PRN IV ANXIETY Last administered on 10/13/16 21: 38; Admin Dose 0.5 MG; Start 10/05/16 at 21:30 Hydralazine HCl (Apresoline) 10 mg Q6H PRN IV ELEVATED SYSTOLIC BP Last administered on 10/14/16 17:50; Admin Dose 10 MG; Start 10/05/16 at 21:30 Clonidine (Catapres) 0.1 mg Q6H PRN PO ELEVATED SYSTOLIC BP; Start 10/05/16 at 21:30 Nitroglycerin (Nitroglycerin (Sl Tab) 0.4 Mg) 1 tab Q5M PRN SL ANGINA; Start at 21:30 Aspirin 325 mg 325 mg DAILY PO Last administered on 10/16/16 09:08; Admin Dose 325 MG; Start 10/06/16 at 09:00 Diltiazem HCl (Cardizem-D5W 125 Mg/125 ml Drip) 125 ml @ 5 mls/hr TITRATE IV ; Start 10/05/16 at 22:00 Diagnostic Test (Pha) (Accucheck) 1 ea 02 XX Last administered on 10/16/16 02: 00; Admin Dose 1 EA; Start 10/07/16 at 02:00 Zolpidem Tartrate (Ambien) 5 mg HS PRN PO INSOMNIA Last administered on 01:08; Admin Dose 5 MG; Start 10/06/16 at 01:00 Miscellaneous Information 1 ea NOTE XX ; Start 10/06/16 at 01:00 Glucose (Glutose) 15 gm Q15M PRN PO DECREASED GLUCOSE; Start 10/06/16 at 01:00 Glucose (Glutose) 22.5 gm Q15M PRN PO DECREASED GLUCOSE; Start 10/06/16 at 01: 00 Dextrose (D50w Syringe) 25 ml Q15M PRN IV DECREASED GLUCOSE; Start 10/06/16 at 01:00 Dextrose (D50w Syringe) 50 ml Q15M PRN IV DECREASED GLUCOSE; Start 10/06/16 at 01:00 Glucagon (Glucagen) 1 mg Q15M PRN IM DECREASED GLUCOSE; Start 10/06/16 at 01:00 Glucose (Glutose) 15 gm Q15M PRN BUCCAL DECREASED GLUCOSE; Start 10/06/16 at 01 :00 Cyanocobalamin (Vitamin B12) 1,000 mcg DAILY PO Last administered on 10/16/16 09:19; Admin Dose 1,000 MCG; Start 10/06/16 at 09:00 Folic Acid (Folic Acid) 0.8 mg DAILY PO Last administered on 10/16/16 09:09; Admin Dose 0.8 MG; Start 10/06/16 at 09:00 Triamcinolone Acetonide (Kenalog 0.1% Oint) 1 applic BID TOP Last administered on 10/16/16 09:00; Admin Dose 1 APPLIC; Start 10/06/16 at 09:00 Ferrous Sulfate (Slow Fe) 142 mg DAILY PO Last administered on 10/16/16 09:15 ; Admin Dose 142 MG; Start 10/07/16 at 09:00 Magnesium Oxide (Mag-Ox 400) 400 mg DAILY PO Last administered on 10/16/16 09: 12; Admin Dose 400 MG; Start 10/06/16 at 13:00 Clopidogrel Bisulfate (plaVIX) 75 mg DAILY PO Last administered on 10/16/16 09 :14; Admin Dose 75 MG; Start 10/06/16 at 12:00 Atorvastatin Calcium (Lipitor) 40 mg QHS PO Last administered on 10/15/16 20: 49; Admin Dose 40 MG; Start 10/06/16 at 21:00 Zolpidem Tartrate (Ambien) 10 mg QHS PRN PO INSOMNIA Last administered on 23:22; Admin Dose 10 MG; Start 10/06/16 at 16:30 Lorazepam (Ativan) 1 mg HS PO Last administered on 10/15/16 20:47; Admin Dose 1 MG; Start 10/07/16 at 21:00 Insulin Glargine (Lantus) 10 unit HS SC Last administered on 10/15/16 21:15; Admin Dose 10 UNIT; Start 10/07/16 at 21:00 Linagliptin (Tradjenta) 5 mg DAILY PO Last administered on 10/16/16 09:18; Admin Dose 5 MG; Start 10/07/16 at 17:00 Metoprolol Succinate (Toprol Xl) 25 mg BID PO Last administered on 10/16/16 09 :17; Admin Dose 25 MG; Start 10/07/16 at 21:00 Heparin Sodium (Porcine) (Heparin (5000 Units/0.5 ml)) 5,000 unit BID SC Last administered on 10/15/16 20:54; Admin Dose 5,000 UNIT; Start 10/10/16 at 12:00 Nifedipine 60 mg 60 mg QHS PO Last administered on 10/15/16 20:48; Admin Dose 60 MG; Start 10/10/16 at 21:00 Piperacillin Sod/ Tazobactam Sod (Zosyn 2.25gm/ 50ml (Pmx)) 50 ml @ 100 mls/hr Q8 IVPB Last administered on 10/16/16 15:36; Admin Dose 100 MLS/HR; Start at 11:00 Acetaminophen (Tylenol Tab) 650 mg Q4H PRN PO NON-CARDIAC PAIN LEVEL (1-3) Last administered on 10/14/16 18:39; Admin Dose 650 MG; Start 10/13/16 at 11:00 Morphine Sulfate (morphine) 2 mg Q2H PRN IV FOR NON CARDIAC PAIN (4-10); Start 10/13/16 at 11:00 Al Hydrox/Mg Hydrox/Simethicone (Mag-Al Plus) 30 ml Q4H PRN PO GASTROINTESTINAL UPSET; Start 10/13/16 at 11:00 Ondansetron HCl (Zofran Inj) 4 mg Q4H PRN IV NAUSEA AND/OR VOMITING; Start at 11:00 Amikacin Sulfate AMIKACIN PER PHARMACY NOTE XX ; Start 10/14/16 at 12:00 Vancomycin HCl (Vancocin) 250 ml @ 125 mls/hr Q96H IVPB Last administered on 14:53; Admin Dose 125 MLS/HR; Start 10/15/16 at 15:00 Lidocaine (Xylocaine 1% (Mpf)) 30 ml ONCE PRN INJ ANESTHESIA; Start 10/15/16 at 14:30 Benazepril HCl (Lotensin) 40 mg BID PO Last administered on 10/16/16 09:11; Admin Dose 40 MG; Start 10/15/16 at 21:00 PALOMO MCKOY NP Oct 16, 2016 18:25
[2016-10-16] MEDS: ZOLPIDEM 5 MG TAB PO PRN (20:39)
[2016-10-16] MEDS: ATORVASTATIN 40 MG TAB PO SCH (20:39)
[2016-10-16] MEDS: INSULIN GLARGINE [LANtus] 3 ML PEN SC SCH (20:47)
[2016-10-16] MEDS: NIFEdipine (XL) 60 MG TAB PO SCH (20:50)
[2016-10-16] MEDS: LORAZEPAM 0.5 MG TAB PO SCH (20:55)
[2016-10-17] VITALS (12 sets, daily range): BP systolic 139–188; BP diastolic 71–90; PULSE 65–76; RESP 18–20
[2016-10-17] MEDS: ACCU-CHEK XX SCH (02:00)
[2016-10-17 05:32] LABS: ADD SCAN DIFF NO
[2016-10-17 05:44] LABS: BASOPHIL # 0.1 10^3/ul (0.0-0.1); BASOPHILS % 0.7 % (0.0-2.0); EOSINOPHILS # 0.3 10^3/ul (0.0-0.5); EOSINOPHILS % 4.2 % (0.0-7.0); HEMATOCRIT 28.9 % (42.0-52.0); LYMPHOCYTES % 30.4 % (15.0-51.0); MEAN CORPUSCULAR HEMOGLOBIN 26.7 pg (29.0-33.0); MEAN CORPUSCULAR HGB CONC 31.1 g/dl (32.0-37.0); MEAN CORPUSCULAR VOLUME 85.8 fl (82.0-101.0); MEAN PLATELET VOLUME 10.7 fl (7.4-10.4); MONOCYTE # 0.7 10^3/ul (0.3-0.9); MONOCYTES % 9.8 % (0.0-11.0); NEUTROPHIL # 3.6 10^3/ul (1.6-7.5); NEUTROPHILS % 54.2 % (39.0-77.0); PLATELET COUNT 246 10^3/UL (140-415); RED BLOOD COUNT 3.37 10^6/ul (4.70-6.10); RED CELL DISTRIBUTION WIDTH 15.4 % (11.5-14.5); WHITE BLOOD COUNT 6.7 10^3/ul (4.8-10.8)
[2016-10-17] MEDS: PIPER-TAZO 2.25 GM (PMX) 50 ML IVPB SCH ×3 (06:09→23:26)
[2016-10-17 06:15] LABS: POTASSIUM 4.3 mmol/L (3.5-5.1)
[2016-10-17 06:17] LABS: CREATININE 5.97 mg/dl (0.61-1.24)
[2016-10-17 06:18] LABS: CALCIUM 8.6 mg/dl (8.4-10.2)
--- NOTE | 2016-10-17 07:53 | OPR ---
DATE OF OPERATION: PREOPERATIVE DIAGNOSIS: Infected Perm-A-Cath. POSTOPERATIVE DIAGNOSIS: Infected Perm-A-Cath. OPERATION PERFORMED: Removal of infected Perm-A-Cath. SURGEON: Julian Ferreira MD. ANESTHESIA: Local. CONSENT: Risks, benefits, complications, alternative therapies explained to the patient, consent ob tained. OPERATIVE TECHNIQUE: The patient was placed in supine position, prepped and draped in usual sterile fashion. One percent lidocaine was used throughout the operation for local anesthesia. The cuff of the catheter was grabbed using a hemostat. The catheter and the cuff were removed in their entiret y. Appropriate dressings applied. Patient tolerated procedure well. Dictated By: JULIAN BOTELLO/NTS Conf#: [id number] DID#: [id number]
[2016-10-17] MEDS: INSULIN ASPART [NOVOLOG] 3 ML PEN SC SCH ×4 (07:55→21:29)
[2016-10-17] MEDS: CYANOCOBALAMIN 500 MCG TAB PO SCH (09:50)
[2016-10-17] MEDS: CLOPIDOGREL 75 MG TAB PO SCH (09:50)
[2016-10-17] MEDS: FERROUS SULFATE (SR) 142 MG TAB PO SCH (09:50)
[2016-10-17] MEDS: ASPIRIN (EC) 325 MG TAB PO SCH (09:50)
[2016-10-17] MEDS: FOLIC ACID 0.4 MG TAB PO SCH (09:50)
[2016-10-17] MEDS: LINAGLIPTIN 5 MG TABLET PO SCH (09:51)
[2016-10-17] MEDS: METOPROLOL (XL) 25 MG TAB PO SCH ×2 (09:51→21:00)
[2016-10-17] MEDS: MAGNESIUM OXIDE 400 MG TAB PO SCH (09:51)
[2016-10-17] MEDS: FAMOTIDINE 20 MG TAB PO SCH (09:51)
[2016-10-17] MEDS: BENAZEPRIL 40 MG TAB PO SCH ×2 (09:51→21:29)
[2016-10-17] MEDS: TRIAMCINOLONE ACET 0.1% 15 GM OINT TOP SCH ×2 (09:52→21:01)
[2016-10-17] MEDS: HEPARIN 5,000 UNIT/0.5 ML SYG SC SCH ×2 (09:57→21:07)
--- NOTE | 2016-10-17 11:06 | PN ---
DATE: 10/17/2016 SUBJECTIVE: The patient had his Perm-A-Cath removed yesterday. OBJECTIVE: VITAL SIGNS: Blood pressure 161/83, respirations 18, pulse 70, temperature is 98.6. HEENT: Head is normocephalic. NECK: Supple. HEART: Regular rate. LUNGS: Show diminished breath sounds at the base. ABDOMEN: Soft, nontender to palpation without rebound or guarding. EXTREMITIES: Negative for clubbing, cyanosis, edema. DERMATOLOGIC: No rashes. MUSCULOSKELETAL: No joint effusions. NEUROLOGIC: No change in exam. LABORATORY DATA: Shows sodium 138, potassium 4.3, BUN 51, creatinine 5.97. White count 6.7, hemogl obin 9.0, hematocrit 29.9, platelet count is 246. ASSESSMENT AND PLAN: 1. End-stage renal disease. The patient had her last hemodialysis Monday. The patient's Perm-A- Cath was removed due to line infection. We will monitor daily for daily dialytic needs. If necessa ry, the patient will have a Calvin catheter placed. 2. Sepsis, secondary to line infection. The patient's Perm-A-Cath was removed. Continue to monito r, continue IV antibiotics. 3. Cardiomyopathy/coronary artery disease. Continue current medical management. 4. Anemia of chronic disease. Continue to monitor hemoglobin and hematocrit levels. Continue Epog en. 5. Atrial fibrillation, rate controlled. Continue medical management. 6. Diabetes. Continue Accu-Cheks and sliding scale. 7. Hypertension. Continue current blood pressure regimen. Continue ultrafiltration dialysis. 8. Status post respiratory failure. Dictated By: NOEMI BOTELLO/CHANTALE Conf#: [id number] DID#: [id number]
--- NOTE | 2016-10-17 12:32 | CONS ---
Date/Time of Note Date/Time of Note DATE: 10/17/16 TIME: 12:28 Assessment/Plan Assessment/Plan Chief Complaint/Hosp Course IMPRESSION: 1. Atrial fibrillation with rapid ventricular response-now in SR 2. Abnormal electrocardiogram with inferolateral ST depressions. 3. Positive troponin, assess significance. 4. Cardiomyopathy, decreased left ventricular ejection fraction last approximately 45% by outside hospital paperwork at [facility] 09/09. Now approx 25% by echo here 5. History of PTCA and stent placement at [facility] recently.-per notes had PCI at [facility](08/2016)after being thought to be poor surgical candidate but cath report not sent from [place]. Had originally transferred from [facility] where was cathed and found to have 3VD after suffering MO.-Now s/p C today with moderate disease of distal LMN and mid LAD but otherwise patent vessels and stents 6. Renal failure. 7. Hypertension. 8. Shortness of breath. 9. Generalized weakness. 10. Diabetes mellitus. 11. Anemia-worsening 12.CHF-systolic acute on chronic 14.Bacteremia-GNR persistent ? infected permacath Recc: -Tele -Continue BB/JUDY -Increase CCB to improve SBP -Continue asa/plavix/statin -HD for volume removal -SQ heparin -Continue abx's and f/u cx data Problems: Consultation Date/Type/Reason Admit Date/Time Oct 05, 2016 at 21:04 Initial Consult Date 10/06/2016 Type of Consultation: Cardiology Reason for Consultation cardiomyopathy Referring Provider: JANAE ELDRIDGE Exam/Review of Systems Vital Signs Vitals Vital Signs Date Time Temp Pulse Resp B/P Pulse Ox O2 Delivery O2 Flow Rate FiO2 10/17/16 11:38 98.0 68 18 175/87 100 10/16/16 04:00 Room Air 10/15/16 15:46 21 10/13/16 11:42 2.0 Intake and Output 10/16/16 10/16/16 10/17/16 15:00 23:00 07:00 Intake Total 950 ml 450 ml Balance 950 ml 450 ml Exam Review of Systems: CONSTITUTIONAL: No fevers, chills. PULMONARY: No sob CARDIOVASCULAR: No chest pain/palpitations GASTROINTESTINAL: No nausea/vomiting. GENITOURINARY: No hematuria/dysuria. MUSCULOSKELETAL: No myagias/arthalgias. PSYCHIATRIC: The patient denies depression. NEUROLOGIC: Mild generalized weakness Constitutional: alert, oriented Psych: no complaints Head: normocephalic ENMT: mucosa pink and moist Neck: jvd (9 cm water), supple Respiratory: diminished breath sounds (at bases/B) Cardiovascular: regular rate and rhythm Gastrointestinal: non-tender, soft Musculoskeletal: muscle tone (normal) Extremities: edema (trace/B) Neurological: other (No focal deficits) Results Result Diagram: 10/17/16 0516 10/17/16 0516 Results 24 hrs Laboratory Tests Test 10/16/16 17:37 10/16/16 20:27 10/17/16 05:16 Bedside Glucose 253 H 147 White Blood Count 6.7 Red Blood Count 3.37 L Hemoglobin 9.0 L Hematocrit 28.9 L Mean Corpuscular Volume 85.8 Mean Corpuscular Hemoglobin 26.7 L Mean Corpuscular Hemoglobin Concent 31.1 L Red Cell Distribution Width 15.4 H Platelet Count 246 Mean Platelet Volume 10.7 H Neutrophils % 54.2 Lymphocytes % 30.4 Monocytes % 9.8 Eosinophils % 4.2 Basophils % 0.7 Nucleated Red Blood Cells % 0.0 Neutrophils # 3.6 Lymphocytes # 2.0 Monocytes # 0.7 Eosinophils # 0.3 Basophils # 0.1 Nucleated Red Blood Cells # 0.0 Sodium Level 135 Potassium Level 4.3 Chloride Level 99 Carbon Dioxide Level 24 Anion Gap 16 Blood Urea Nitrogen 51 H Creatinine 5.97 H Glucose Level 67 #L Calcium Level 8.6 Medications Medications Current Medications Acetaminophen/ Hydrocodone Bitart ([place] (5/325)) 1 tab Q6H PRN PO MODERATE PAIN LEVEL 4-6; Start 10/05/16 at 21:30 Morphine Sulfate (morphine) 2 mg Q4H PRN IV SEVERE PAIN LEVEL 7-10; Start 10/05 at 21:30 Docusate Sodium (Colace) 100 mg Q12H PRN PO CONSTIPATION; Start 10/05/16 at 21: 30 Magnesium Hydroxide (Milk Of Mag) 30 ml DAILY PRN PO CONSTIPATION; Start at 21:30 Sodium Biphosphate/ Sodium Phosphate (Fleet Enema) 133 ml DAILY PRN [place] CONSTIPATION; Start 10/05/16 at 21:30 Famotidine (Pepcid) 20 mg DAILY PO Last administered on 10/17/16 09:51; Admin Dose 20 MG; Start 10/06/16 at 09:00 Lorazepam (Ativan) 0.5 mg Q6H PRN IV ANXIETY Last administered on 10/13/16 21: 38; Admin Dose 0.5 MG; Start 10/05/16 at 21:30 Hydralazine HCl (Apresoline) 10 mg Q6H PRN IV ELEVATED SYSTOLIC BP Last administered on 10/14/16 17:50; Admin Dose 10 MG; Start 10/05/16 at 21:30 Clonidine (Catapres) 0.1 mg Q6H PRN PO ELEVATED SYSTOLIC BP; Start 10/05/16 at 21:30 Nitroglycerin (Nitroglycerin (Sl Tab) 0.4 Mg) 1 tab Q5M PRN SL ANGINA; Start at 21:30 Aspirin 325 mg 325 mg DAILY PO Last administered on 10/17/16 09:50; Admin Dose 325 MG; Start 10/06/16 at 09:00 Diltiazem HCl (Cardizem-D5W 125 Mg/125 ml Drip) 125 ml @ 5 mls/hr TITRATE IV ; Start 10/05/16 at 22:00 Diagnostic Test (Pha) (Accucheck) 1 ea 02 XX Last administered on 10/16/16 02: 00; Admin Dose 1 EA; Start 10/07/16 at 02:00 Zolpidem Tartrate (Ambien) 5 mg HS PRN PO INSOMNIA Last administered on 20:39; Admin Dose 5 MG; Start 10/06/16 at 01:00 Miscellaneous Information 1 ea NOTE XX ; Start 10/06/16 at 01:00 Glucose (Glutose) 15 gm Q15M PRN PO DECREASED GLUCOSE; Start 10/06/16 at 01:00 Glucose (Glutose) 22.5 gm Q15M PRN PO DECREASED GLUCOSE; Start 10/06/16 at 01: 00 Dextrose (D50w Syringe) 25 ml Q15M PRN IV DECREASED GLUCOSE; Start 10/06/16 at 01:00 Dextrose (D50w Syringe) 50 ml Q15M PRN IV DECREASED GLUCOSE; Start 10/06/16 at 01:00 Glucagon (Glucagen) 1 mg Q15M PRN IM DECREASED GLUCOSE; Start 10/06/16 at 01:00 Glucose (Glutose) 15 gm Q15M PRN BUCCAL DECREASED GLUCOSE; Start 10/06/16 at 01 :00 Cyanocobalamin (Vitamin B12) 1,000 mcg DAILY PO Last administered on 10/17/16 09:50; Admin Dose 1,000 MCG; Start 10/06/16 at 09:00 Folic Acid (Folic Acid) 0.8 mg DAILY PO Last administered on 10/17/16 09:50; Admin Dose 0.8 MG; Start 10/06/16 at 09:00 Triamcinolone Acetonide (Kenalog 0.1% Oint) 1 applic BID TOP Last administered on 10/17/16 09:52; Admin Dose 1 APPLIC; Start 10/06/16 at 09:00 Ferrous Sulfate (Slow Fe) 142 mg DAILY PO Last administered on 10/17/16 09:50 ; Admin Dose 142 MG; Start 10/07/16 at 09:00 Magnesium Oxide (Mag-Ox 400) 400 mg DAILY PO Last administered on 10/17/16 09: 51; Admin Dose 400 MG; Start 10/06/16 at 13:00 Clopidogrel Bisulfate (plaVIX) 75 mg DAILY PO Last administered on 10/17/16 09 :50; Admin Dose 75 MG; Start 10/06/16 at 12:00 Atorvastatin Calcium (Lipitor) 40 mg QHS PO Last administered on 10/16/16 20: 39; Admin Dose 40 MG; Start 10/06/16 at 21:00 Zolpidem Tartrate (Ambien) 10 mg QHS PRN PO INSOMNIA Last administered on 23:22; Admin Dose 10 MG; Start 10/06/16 at 16:30 Lorazepam (Ativan) 1 mg HS PO Last administered on 10/16/16 20:55; Admin Dose 1 MG; Start 10/07/16 at 21:00 Insulin Glargine (Lantus) 10 unit HS SC Last administered on 10/16/16 20:47; Admin Dose 10 UNIT; Start 10/07/16 at 21:00 Linagliptin (Tradjenta) 5 mg DAILY PO Last administered on 10/17/16 09:51; Admin Dose 5 MG; Start 10/07/16 at 17:00 Metoprolol Succinate (Toprol Xl) 25 mg BID PO Last administered on 10/17/16 09 :51; Admin Dose 25 MG; Start 10/07/16 at 21:00 Heparin Sodium (Porcine) (Heparin (5000 Units/0.5 ml)) 5,000 unit BID SC Last administered on 10/17/16 09:57; Admin Dose 5,000 UNIT; Start 10/10/16 at 12:00 Nifedipine 60 mg 60 mg QHS PO Last administered on 10/16/16 20:50; Admin Dose 60 MG; Start 10/10/16 at 21:00 Piperacillin Sod/ Tazobactam Sod (Zosyn 2.25gm/ 50ml (Pmx)) 50 ml @ 100 mls/hr Q8 IVPB Last administered on 10/17/16 06:09; Admin Dose 100 MLS/HR; Start at 11:00 Acetaminophen (Tylenol Tab) 650 mg Q4H PRN PO NON-CARDIAC PAIN LEVEL (1-3) Last administered on 10/14/16 18:39; Admin Dose 650 MG; Start 10/13/16 at 11:00 Morphine Sulfate (morphine) 2 mg Q2H PRN IV FOR NON CARDIAC PAIN (4-10); Start 10/13/16 at 11:00 Al Hydrox/Mg Hydrox/Simethicone (Mag-Al Plus) 30 ml Q4H PRN PO GASTROINTESTINAL UPSET; Start 10/13/16 at 11:00 Ondansetron HCl 4 mg 4 mg Q4H PRN IV NAUSEA AND/OR VOMITING; Start 10/13/16 at 11:00 Vancomycin HCl (Vancocin) 250 ml @ 125 mls/hr Q96H IVPB Last administered on 14:53; Admin Dose 125 MLS/HR; Start 10/15/16 at 15:00 Lidocaine (Xylocaine 1% (Mpf)) 30 ml ONCE PRN INJ ANESTHESIA; Start 10/15/16 at 14:30 Benazepril HCl (Lotensin) 40 mg BID PO Last administered on 10/17/16 09:51; Admin Dose 40 MG; Start 10/15/16 at 21:00 AIYANA LANG 27, 2017 12:32
--- NOTE | 2016-10-17 12:51 | CONS ---
Date/Time of Note Date/Time of Note DATE: 10/17/16 TIME: 12:50 Assessment/Plan Assessment/Plan Chief Complaint/Hosp Course SUBJECTIVE: No acute events, no fevers, nad MICROBIOLOGY: Blood cultures on 10/05/2016 grew gram-negative rods. Repeat blood culture on 10/09/2016 is also growing gram-negative rods. Culture on also growing gram-negative rods. ANTIMICROBIALS: 1. Zosyn. 2. Vancomycin. PHYSICAL EXAMINATION: GENERAL: This is well-developed, elderly man, who is alert, in no distress. HEENT: Head atraumatic, normocephalic. Sclerae anicteric. Buccal mucosa pink. NECK: Supple, trachea midline. CHEST: Chest rise is symmetrical. Breath sounds clear. HEART: S1, S2. ABDOMEN: Soft, bowel tones present. EXTREMITIES: Without cyanosis. ASSESSMENT: 1. Persistent bacteremia, likely secondary to infected PermCath==> s/p dc'd. 2. Anemia. 3. Atrial fibrillation. 4. Diabetes. 5. Pneumonia. PLAN: Stable, continue abx, repeat bld cx tomorrow, line holiday staff Problems: Consultation Date/Type/Reason Admit Date/Time Oct 05, 2016 at 21:04 Initial Consult Date Type of Consultation: id Referring Provider: JANAE ELDRIDGE Exam/Review of Systems Vital Signs Vitals Vital Signs Date Time Temp Pulse Resp B/P Pulse Ox O2 Delivery O2 Flow Rate FiO2 10/17/16 12:33 66 10/17/16 11:38 98.0 18 175/87 100 10/16/16 04:00 Room Air 10/15/16 15:46 21 10/13/16 11:42 2.0 Intake and Output 10/16/16 10/16/16 10/17/16 15:00 23:00 07:00 Intake Total 950 ml 450 ml Balance 950 ml 450 ml Results Result Diagram: 10/17/16 0516 10/17/16 0516 Results 24 hrs Laboratory Tests Test 10/16/16 17:37 10/16/16 20:27 10/17/16 05:16 Bedside Glucose 253 H 147 White Blood Count 6.7 Red Blood Count 3.37 L Hemoglobin 9.0 L Hematocrit 28.9 L Mean Corpuscular Volume 85.8 Mean Corpuscular Hemoglobin 26.7 L Mean Corpuscular Hemoglobin Concent 31.1 L Red Cell Distribution Width 15.4 H Platelet Count 246 Mean Platelet Volume 10.7 H Neutrophils % 54.2 Lymphocytes % 30.4 Monocytes % 9.8 Eosinophils % 4.2 Basophils % 0.7 Nucleated Red Blood Cells % 0.0 Neutrophils # 3.6 Lymphocytes # 2.0 Monocytes # 0.7 Eosinophils # 0.3 Basophils # 0.1 Nucleated Red Blood Cells # 0.0 Sodium Level 135 Potassium Level 4.3 Chloride Level 99 Carbon Dioxide Level 24 Anion Gap 16 Blood Urea Nitrogen 51 H Creatinine 5.97 H Glucose Level 67 #L Calcium Level 8.6 Medications Medications Current Medications Acetaminophen/ Hydrocodone Bitart ([place] (5/325)) 1 tab Q6H PRN PO MODERATE PAIN LEVEL 4-6; Start 10/05/16 at 21:30 Morphine Sulfate (morphine) 2 mg Q4H PRN IV SEVERE PAIN LEVEL 7-10; Start 10/05 at 21:30 Docusate Sodium (Colace) 100 mg Q12H PRN PO CONSTIPATION; Start 10/05/16 at 21: 30 Magnesium Hydroxide (Milk Of Mag) 30 ml DAILY PRN PO CONSTIPATION; Start at 21:30 Sodium Biphosphate/ Sodium Phosphate (Fleet Enema) 133 ml DAILY PRN [place] CONSTIPATION; Start 10/05/16 at 21:30 Famotidine (Pepcid) 20 mg DAILY PO Last administered on 10/17/16 09:51; Admin Dose 20 MG; Start 10/06/16 at 09:00 Lorazepam (Ativan) 0.5 mg Q6H PRN IV ANXIETY Last administered on 10/13/16 21: 38; Admin Dose 0.5 MG; Start 10/05/16 at 21:30 Hydralazine HCl (Apresoline) 10 mg Q6H PRN IV ELEVATED SYSTOLIC BP Last administered on 10/14/16 17:50; Admin Dose 10 MG; Start 10/05/16 at 21:30 Clonidine (Catapres) 0.1 mg Q6H PRN PO ELEVATED SYSTOLIC BP; Start 10/05/16 at 21:30 Nitroglycerin (Nitroglycerin (Sl Tab) 0.4 Mg) 1 tab Q5M PRN SL ANGINA; Start at 21:30 Aspirin 325 mg 325 mg DAILY PO Last administered on 10/17/16 09:50; Admin Dose 325 MG; Start 10/06/16 at 09:00 Diltiazem HCl (Cardizem-D5W 125 Mg/125 ml Drip) 125 ml @ 5 mls/hr TITRATE IV ; Start 10/05/16 at 22:00 Diagnostic Test (Pha) (Accucheck) 1 ea 02 XX Last administered on 10/16/16 02: 00; Admin Dose 1 EA; Start 10/07/16 at 02:00 Zolpidem Tartrate (Ambien) 5 mg HS PRN PO INSOMNIA Last administered on 20:39; Admin Dose 5 MG; Start 10/06/16 at 01:00 Miscellaneous Information 1 ea NOTE XX ; Start 10/06/16 at 01:00 Glucose (Glutose) 15 gm Q15M PRN PO DECREASED GLUCOSE; Start 10/06/16 at 01:00 Glucose (Glutose) 22.5 gm Q15M PRN PO DECREASED GLUCOSE; Start 10/06/16 at 01: 00 Dextrose (D50w Syringe) 25 ml Q15M PRN IV DECREASED GLUCOSE; Start 10/06/16 at 01:00 Dextrose (D50w Syringe) 50 ml Q15M PRN IV DECREASED GLUCOSE; Start 10/06/16 at 01:00 Glucagon (Glucagen) 1 mg Q15M PRN IM DECREASED GLUCOSE; Start 10/06/16 at 01:00 Glucose (Glutose) 15 gm Q15M PRN BUCCAL DECREASED GLUCOSE; Start 10/06/16 at 01 :00 Cyanocobalamin (Vitamin B12) 1,000 mcg DAILY PO Last administered on 10/17/16 09:50; Admin Dose 1,000 MCG; Start 10/06/16 at 09:00 Folic Acid (Folic Acid) 0.8 mg DAILY PO Last administered on 10/17/16 09:50; Admin Dose 0.8 MG; Start 10/06/16 at 09:00 Triamcinolone Acetonide (Kenalog 0.1% Oint) 1 applic BID TOP Last administered on 10/17/16 09:52; Admin Dose 1 APPLIC; Start 10/06/16 at 09:00 Ferrous Sulfate (Slow Fe) 142 mg DAILY PO Last administered on 10/17/16 09:50 ; Admin Dose 142 MG; Start 10/07/16 at 09:00 Magnesium Oxide (Mag-Ox 400) 400 mg DAILY PO Last administered on 10/17/16 09: 51; Admin Dose 400 MG; Start 10/06/16 at 13:00 Clopidogrel Bisulfate (plaVIX) 75 mg DAILY PO Last administered on 10/17/16 09 :50; Admin Dose 75 MG; Start 10/06/16 at 12:00 Atorvastatin Calcium (Lipitor) 40 mg QHS PO Last administered on 10/16/16 20: 39; Admin Dose 40 MG; Start 10/06/16 at 21:00 Zolpidem Tartrate (Ambien) 10 mg QHS PRN PO INSOMNIA Last administered on 23:22; Admin Dose 10 MG; Start 10/06/16 at 16:30 Lorazepam (Ativan) 1 mg HS PO Last administered on 10/16/16 20:55; Admin Dose 1 MG; Start 10/07/16 at 21:00 Insulin Glargine (Lantus) 10 unit HS SC Last administered on 10/16/16 20:47; Admin Dose 10 UNIT; Start 10/07/16 at 21:00 Linagliptin (Tradjenta) 5 mg DAILY PO Last administered on 10/17/16 09:51; Admin Dose 5 MG; Start 10/07/16 at 17:00 Metoprolol Succinate (Toprol Xl) 25 mg BID PO Last administered on 10/17/16 09 :51; Admin Dose 25 MG; Start 10/07/16 at 21:00 Heparin Sodium (Porcine) (Heparin (5000 Units/0.5 ml)) 5,000 unit BID SC Last administered on 10/17/16 09:57; Admin Dose 5,000 UNIT; Start 10/10/16 at 12:00 Nifedipine 60 mg 60 mg QHS PO Last administered on 10/16/16 20:50; Admin Dose 60 MG; Start 10/10/16 at 21:00 Piperacillin Sod/ Tazobactam Sod (Zosyn 2.25gm/ 50ml (Pmx)) 50 ml @ 100 mls/hr Q8 IVPB Last administered on 10/17/16 06:09; Admin Dose 100 MLS/HR; Start at 11:00 Acetaminophen (Tylenol Tab) 650 mg Q4H PRN PO NON-CARDIAC PAIN LEVEL (1-3) Last administered on 10/14/16 18:39; Admin Dose 650 MG; Start 10/13/16 at 11:00 Morphine Sulfate (morphine) 2 mg Q2H PRN IV FOR NON CARDIAC PAIN (4-10); Start 10/13/16 at 11:00 Al Hydrox/Mg Hydrox/Simethicone (Mag-Al Plus) 30 ml Q4H PRN PO GASTROINTESTINAL UPSET; Start 10/13/16 at 11:00 Ondansetron HCl 4 mg 4 mg Q4H PRN IV NAUSEA AND/OR VOMITING; Start 10/13/16 at 11:00 Vancomycin HCl (Vancocin) 250 ml @ 125 mls/hr Q96H IVPB Last administered on 14:53; Admin Dose 125 MLS/HR; Start 10/15/16 at 15:00 Lidocaine (Xylocaine 1% (Mpf)) 30 ml ONCE PRN INJ ANESTHESIA; Start 10/15/16 at 14:30 Benazepril HCl (Lotensin) 40 mg BID PO Last administered on 10/17/16 09:51; Admin Dose 40 MG; Start 10/15/16 at 21:00 ALEXA BERRY NP Oct 17, 2016 12:51
--- NOTE | 2016-10-17 16:26 | PN ---
Date/Time of Note Date/Time of Note DATE: 10/17/16 TIME: 16:09 Assessment/Plan VTE Prophylaxis VTE Prophylaxis Intervention: heparin Lines/Catheters IV [facility] Type [facility]from [facility] Urinary Cath still in place: No Assessment/Plan Chief Complaint/Hosp Course 1. Acute respiratory distress secondary to volume overload with underlying end -stage renal disease and congestive heart failure, improved Stable on room air 2. Atrial fibrillation with rapid ventricular response, converted back to sinus now rate controlled 3. NSTEMI type 2 s/p C 10/13/16 with findings: * Moderate obstruction of distal left main but with excellent flow and moderate obstruction of mid LAD with excellent flow. * Widely patent LAD and circumflex stents. * Elevated left heart filling pressures. * No significant aortic stenosis by gradient. 4. End-stage renal disease on hemodialysis Hold dialysis during line holiday 5. History of diabetes mellitus type 2. Hemoglobin 6.3. 6. Anemia of chronic disease. 7. Known coronary artery disease with recent history of PTCA and stent placement at [facility]. 8. Hypertensive urgency, resolved. 9. Acute on chronic systolic congestive heart failure with Ischemic CM and ejection fraction of 25% 10. Probable line sepsis with Gram negative kait bacteremia: RALSTONIA PICKETTII Dialysis line removed, patient on line holiday continue IV antibiotics, placement of new access line Per ID and nephrology 11. Mild Chronic dementia with some mild underlying confusion 12. Mild Depression Prophylaxis: Heparin / pepcid Problems: Subjective 24 Hr Interval Summary Constitutional: no complaints Exam/Review of Systems Vital Signs Vitals Vital Signs Date Time Temp Pulse Resp B/P Pulse Ox O2 Delivery O2 Flow Rate FiO2 10/17/16 15:43 97.8 71 18 188/90 99 10/16/16 04:00 Room Air 10/15/16 15:46 21 10/13/16 11:42 2.0 Intake and Output 10/16/16 10/16/16 10/17/16 15:00 23:00 07:00 Intake Total 950 ml 450 ml Balance 950 ml 450 ml Exam Constitutional: alert, oriented Respiratory: clear to auscultation Cardiovascular: regular rate and rhythm Gastrointestinal: soft, No distended Musculoskeletal: nl extremities to inspection Results Result Diagram: 10/17/16 0516 10/17/16 0516 Results 24 hrs Laboratory Tests Test 10/16/16 17:37 10/16/16 20:27 10/17/16 05:16 Bedside Glucose 253 H 147 White Blood Count 6.7 Red Blood Count 3.37 L Hemoglobin 9.0 L Hematocrit 28.9 L Mean Corpuscular Volume 85.8 Mean Corpuscular Hemoglobin 26.7 L Mean Corpuscular Hemoglobin Concent 31.1 L Red Cell Distribution Width 15.4 H Platelet Count 246 Mean Platelet Volume 10.7 H Neutrophils % 54.2 Lymphocytes % 30.4 Monocytes % 9.8 Eosinophils % 4.2 Basophils % 0.7 Nucleated Red Blood Cells % 0.0 Neutrophils # 3.6 Lymphocytes # 2.0 Monocytes # 0.7 Eosinophils # 0.3 Basophils # 0.1 Nucleated Red Blood Cells # 0.0 Sodium Level 135 Potassium Level 4.3 Chloride Level 99 Carbon Dioxide Level 24 Anion Gap 16 Blood Urea Nitrogen 51 H Creatinine 5.97 H Glucose Level 67 #L Calcium Level 8.6 Medications Medications Current Medications Acetaminophen/ Hydrocodone Bitart ([place] (5/325)) 1 tab Q6H PRN PO MODERATE PAIN LEVEL 4-6; Start 10/05/16 at 21:30 Morphine Sulfate (morphine) 2 mg Q4H PRN IV SEVERE PAIN LEVEL 7-10; Start 10/05 at 21:30 Docusate Sodium (Colace) 100 mg Q12H PRN PO CONSTIPATION; Start 10/05/16 at 21: 30 Magnesium Hydroxide (Milk Of Mag) 30 ml DAILY PRN PO CONSTIPATION; Start at 21:30 Sodium Biphosphate/ Sodium Phosphate (Fleet Enema) 133 ml DAILY PRN [place] CONSTIPATION; Start 10/05/16 at 21:30 Famotidine (Pepcid) 20 mg DAILY PO Last administered on 10/17/16 09:51; Admin Dose 20 MG; Start 10/06/16 at 09:00 Lorazepam (Ativan) 0.5 mg Q6H PRN IV ANXIETY Last administered on 10/13/16 21: 38; Admin Dose 0.5 MG; Start 10/05/16 at 21:30 Hydralazine HCl (Apresoline) 10 mg Q6H PRN IV ELEVATED SYSTOLIC BP Last administered on 10/14/16 17:50; Admin Dose 10 MG; Start 10/05/16 at 21:30 Clonidine (Catapres) 0.1 mg Q6H PRN PO ELEVATED SYSTOLIC BP; Start 10/05/16 at 21:30 Nitroglycerin (Nitroglycerin (Sl Tab) 0.4 Mg) 1 tab Q5M PRN SL ANGINA; Start at 21:30 Aspirin 325 mg 325 mg DAILY PO Last administered on 10/17/16 09:50; Admin Dose 325 MG; Start 10/06/16 at 09:00 Diltiazem HCl (Cardizem-D5W 125 Mg/125 ml Drip) 125 ml @ 5 mls/hr TITRATE IV ; Start 10/05/16 at 22:00 Diagnostic Test (Pha) (Accucheck) 1 ea 02 XX Last administered on 10/16/16 02: 00; Admin Dose 1 EA; Start 10/07/16 at 02:00 Zolpidem Tartrate (Ambien) 5 mg HS PRN PO INSOMNIA Last administered on 20:39; Admin Dose 5 MG; Start 10/06/16 at 01:00 Miscellaneous Information 1 ea NOTE XX ; Start 10/06/16 at 01:00 Glucose (Glutose) 15 gm Q15M PRN PO DECREASED GLUCOSE; Start 10/06/16 at 01:00 Glucose (Glutose) 22.5 gm Q15M PRN PO DECREASED GLUCOSE; Start 10/06/16 at 01: 00 Dextrose (D50w Syringe) 25 ml Q15M PRN IV DECREASED GLUCOSE; Start 10/06/16 at 01:00 Dextrose (D50w Syringe) 50 ml Q15M PRN IV DECREASED GLUCOSE; Start 10/06/16 at 01:00 Glucagon (Glucagen) 1 mg Q15M PRN IM DECREASED GLUCOSE; Start 10/06/16 at 01:00 Glucose (Glutose) 15 gm Q15M PRN BUCCAL DECREASED GLUCOSE; Start 10/06/16 at 01 :00 Cyanocobalamin (Vitamin B12) 1,000 mcg DAILY PO Last administered on 10/17/16 09:50; Admin Dose 1,000 MCG; Start 10/06/16 at 09:00 Folic Acid (Folic Acid) 0.8 mg DAILY PO Last administered on 10/17/16 09:50; Admin Dose 0.8 MG; Start 10/06/16 at 09:00 Triamcinolone Acetonide (Kenalog 0.1% Oint) 1 applic BID TOP Last administered on 10/17/16 09:52; Admin Dose 1 APPLIC; Start 10/06/16 at 09:00 Ferrous Sulfate (Slow Fe) 142 mg DAILY PO Last administered on 10/17/16 09:50 ; Admin Dose 142 MG; Start 10/07/16 at 09:00 Magnesium Oxide (Mag-Ox 400) 400 mg DAILY PO Last administered on 10/17/16 09: 51; Admin Dose 400 MG; Start 10/06/16 at 13:00 Clopidogrel Bisulfate (plaVIX) 75 mg DAILY PO Last administered on 10/17/16 09 :50; Admin Dose 75 MG; Start 10/06/16 at 12:00 Atorvastatin Calcium (Lipitor) 40 mg QHS PO Last administered on 10/16/16 20: 39; Admin Dose 40 MG; Start 10/06/16 at 21:00 Zolpidem Tartrate (Ambien) 10 mg QHS PRN PO INSOMNIA Last administered on 23:22; Admin Dose 10 MG; Start 10/06/16 at 16:30 Lorazepam (Ativan) 1 mg HS PO Last administered on 10/16/16 20:55; Admin Dose 1 MG; Start 10/07/16 at 21:00 Insulin Glargine (Lantus) 10 unit HS SC Last administered on 10/16/16 20:47; Admin Dose 10 UNIT; Start 10/07/16 at 21:00 Linagliptin (Tradjenta) 5 mg DAILY PO Last administered on 10/17/16 09:51; Admin Dose 5 MG; Start 10/07/16 at 17:00 Metoprolol Succinate (Toprol Xl) 25 mg BID PO Last administered on 10/17/16 09 :51; Admin Dose 25 MG; Start 10/07/16 at 21:00 Heparin Sodium (Porcine) (Heparin (5000 Units/0.5 ml)) 5,000 unit BID SC Last administered on 10/17/16 09:57; Admin Dose 5,000 UNIT; Start 10/10/16 at 12:00 Nifedipine 60 mg 60 mg QHS PO Last administered on 10/16/16 20:50; Admin Dose 60 MG; Start 10/10/16 at 21:00 Piperacillin Sod/ Tazobactam Sod (Zosyn 2.25gm/ 50ml (Pmx)) 50 ml @ 100 mls/hr Q8 IVPB Last administered on 10/17/16 13:15; Admin Dose 100 MLS/HR; Start at 11:00 Acetaminophen (Tylenol Tab) 650 mg Q4H PRN PO NON-CARDIAC PAIN LEVEL (1-3) Last administered on 10/14/16 18:39; Admin Dose 650 MG; Start 10/13/16 at 11:00 Morphine Sulfate (morphine) 2 mg Q2H PRN IV FOR NON CARDIAC PAIN (4-10); Start 10/13/16 at 11:00 Al Hydrox/Mg Hydrox/Simethicone (Mag-Al Plus) 30 ml Q4H PRN PO GASTROINTESTINAL UPSET; Start 10/13/16 at 11:00 Ondansetron HCl 4 mg 4 mg Q4H PRN IV NAUSEA AND/OR VOMITING; Start 10/13/16 at 11:00 Vancomycin HCl (Vancocin) 250 ml @ 125 mls/hr Q96H IVPB Last administered on 14:53; Admin Dose 125 MLS/HR; Start 10/15/16 at 15:00 Lidocaine (Xylocaine 1% (Mpf)) 30 ml ONCE PRN INJ ANESTHESIA; Start 10/15/16 at 14:30 Benazepril HCl (Lotensin) 40 mg BID PO Last administered on 10/17/16 09:51; Admin Dose 40 MG; Start 10/15/16 at 21:00 Nifedipine (Procardia Xl) 30 mg AM PO ; Start 10/18/16 at 09:00 JANAE ELDRIDGE Oct 17, 2016 16:25
[2016-10-17] MEDS: ATORVASTATIN 40 MG TAB PO SCH (20:59)
[2016-10-17] MEDS: NIFEdipine (XL) 60 MG TAB PO SCH (20:59)
[2016-10-17] MEDS: LORAZEPAM 0.5 MG TAB PO SCH (21:10)
[2016-10-17] MEDS: ZOLPIDEM 5 MG TAB PO PRN (21:16)
[2016-10-17] MEDS: INSULIN GLARGINE [LANtus] 3 ML PEN SC SCH (21:28)
[2016-10-18] MEDS: ACCU-CHEK XX SCH (01:45)
[2016-10-18 05:48] LABS: ADD SCAN DIFF NO
[2016-10-18 05:59] LABS: BASOPHILS % 0.6 % (0.0-2.0); EOSINOPHILS # 0.3 10^3/ul (0.0-0.5); EOSINOPHILS % 4.8 % (0.0-7.0); HEMOGLOBIN 9.2 g/dl (14.0-18.0); LYMPHOCYTES # 2.2 10^3/ul (0.8-2.9); LYMPHOCYTES % 33.5 % (15.0-51.0); MEAN CORPUSCULAR HEMOGLOBIN 26.8 pg (29.0-33.0); MEAN CORPUSCULAR HGB CONC 31.7 g/dl (32.0-37.0); MEAN CORPUSCULAR VOLUME 84.5 fl (82.0-101.0); MEAN PLATELET VOLUME 10.7 fl (7.4-10.4); MONOCYTE # 0.6 10^3/ul (0.3-0.9); MONOCYTES % 9.2 % (0.0-11.0); NEUTROPHIL # 3.3 10^3/ul (1.6-7.5); PLATELET COUNT 256 10^3/UL (140-415); RED BLOOD COUNT 3.43 10^6/ul (4.70-6.10); RED CELL DISTRIBUTION WIDTH 15.5 % (11.5-14.5); WHITE BLOOD COUNT 6.4 10^3/ul (4.8-10.8)
[2016-10-18] MEDS: PIPER-TAZO 2.25 GM (PMX) 50 ML IVPB SCH ×3 (06:33→22:30)
[2016-10-18 06:48] LABS: POTASSIUM 4.3 mmol/L (3.5-5.1)
[2016-10-18 06:50] LABS: CREATININE 7.21 mg/dl (0.61-1.24)
[2016-10-18 06:51] LABS: CALCIUM 8.6 mg/dl (8.4-10.2)
[2016-10-18] MEDS: INSULIN ASPART [NOVOLOG] 3 ML PEN SC SCH ×5 (08:00→21:33)
[2016-10-18 08:15] VITALS: BP 153/71; RESP 20
[2016-10-18] MEDS: CLOPIDOGREL 75 MG TAB PO SCH (08:54)
[2016-10-18] MEDS: FAMOTIDINE 20 MG TAB PO SCH (08:54)
[2016-10-18] MEDS: NIFEdipine (XL) 30 MG TAB PO SCH (08:54)
[2016-10-18] MEDS: METOPROLOL (XL) 25 MG TAB PO SCH ×2 (08:54→21:17)
[2016-10-18] MEDS: ASPIRIN (EC) 325 MG TAB PO SCH (08:54)
[2016-10-18] MEDS: MAGNESIUM OXIDE 400 MG TAB PO SCH (08:55)
[2016-10-18] MEDS: CYANOCOBALAMIN 500 MCG TAB PO SCH (08:55)
[2016-10-18] MEDS: BENAZEPRIL 40 MG TAB PO SCH ×2 (08:55→21:16)
[2016-10-18] MEDS: FOLIC ACID 0.4 MG TAB PO SCH (08:55)
[2016-10-18] MEDS: LINAGLIPTIN 5 MG TABLET PO SCH (08:55)
[2016-10-18] MEDS: TRIAMCINOLONE ACET 0.1% 15 GM OINT TOP SCH ×3 (09:00→21:20)
[2016-10-18] MEDS: HEPARIN 5,000 UNIT/0.5 ML SYG SC SCH ×2 (09:08→21:18)
[2016-10-18] MEDS: FERROUS SULFATE (SR) 142 MG TAB PO SCH (09:14)
--- NOTE | 2016-10-18 09:48 | CONS ---
Date/Time of Note Date/Time of Note DATE: 10/18/16 TIME: 09:46 Assessment/Plan Assessment/Plan Additional Assessment/Plan 1. Atrial fibrillation with rapid ventricular response-now in SR - rate controlled now 2. Abnormal electrocardiogram with inferolateral ST depressions. 3. Positive troponin, assess significance s/p [facility] with Dr. Umana. 4. Cardiomyopathy, decreased left ventricular ejection fraction last approximately 45% by outside hospital paperwork at [facility] 09/09. Now approx 25% by echo here 5. History of PTCA and stent placement at [facility] recently.-per notes had PCI at [facility](08/2016)after being thought to be poor surgical candidate but cath report not sent from [facility]. Had originally transferred from [facility] where was cathed and found to have 3VD after suffering PR.-Now s/p C with DR. Umana with moderate disease of distal LMN and mid LAD but otherwise patent vessels and stents 6. Renal failure. 7. Hypertension. 8. Shortness of breath. 9. Generalized weakness. 10. Diabetes mellitus. 11. Anemia-worsening 12.CHF-systolic acute on chronic 14.Bacteremia-GNR persistent ? infected permacath - now catheter removed - ID follows Consultation Date/Type/Reason Admit Date/Time Oct 05, 2016 at 21:04 Type of Consultation: id Referring Provider: JANAE ELDRIDGE 24 HR Interval Summary Free Text/Dictation NO acute change - catheter removed - con't anti-Bx - off tele now - sinus by exam ROS: No fever, no chills, no nausea, no vomiting, no diarrhea/constipation No recent weight changes No chest pain, no PND, no orthopnea No dizziness, blurred vision No thirst, no heat or cold intolerance Exam/Review of Systems Vital Signs Vitals Vital Signs Date Time Temp Pulse Resp B/P Pulse Ox O2 Delivery O2 Flow Rate FiO2 10/18/16 08:15 97.3 68 20 153/71 98 10/17/16 23:00 Room Air 10/15/16 15:46 21 Intake and Output 10/17/16 10/17/16 10/18/16 15:00 23:00 07:00 Intake Total 100 ml 720 ml 500 ml Balance 100 ml 720 ml 500 ml Exam General: WN/WD/NAD, AOx 2-3 (a little confused) HEENT: Unicetric/atraumatic/EOMI (follows commands) NECK: JVD elevated, no thyromegaly Lymph: no lymphadenopathy HEART: regular with no S3, II/ systolic murmur at apex LUNGS: Coarse sounds ABD: soft, NT, ND, +BS : Intact Neuro: non focal SKIN: chronic changes EXT: trace edema Results Result Diagram: 10/18/16 0525 10/18/16 0535 Results 24 hrs Laboratory Tests Test 10/17/16 19:58 10/18/16 01:43 10/18/16 05:25 10/18/16 05:35 Bedside Glucose 228 H 199 White Blood Count 6.4 Red Blood Count 3.43 L Hemoglobin 9.2 L Hematocrit 29.0 L Mean Corpuscular Volume 84.5 Mean Corpuscular Hemoglobin 26.8 L Mean Corpuscular Hemoglobin Concent 31.7 L Red Cell Distribution Width 15.5 H Platelet Count 256 Mean Platelet Volume 10.7 H Neutrophils % 51.0 Lymphocytes % 33.5 Monocytes % 9.2 Eosinophils % 4.8 Basophils % 0.6 Nucleated Red Blood Cells % 0.0 Neutrophils # 3.3 Lymphocytes # 2.2 Monocytes # 0.6 Eosinophils # 0.3 Basophils # 0.0 Nucleated Red Blood Cells # 0.0 Sodium Level 132 L Potassium Level 4.3 Chloride Level 98 Carbon Dioxide Level 22 Anion Gap 16 Blood Urea Nitrogen 63 H Creatinine 7.21 H Glucose Level 156 Calcium Level 8.6 Test 10/18/16 07:42 Bedside Glucose 145 Medications Medications Current Medications Acetaminophen/ Hydrocodone Bitart ([place] (5/325)) 1 tab Q6H PRN PO MODERATE PAIN LEVEL 4-6; Start 10/05/16 at 21:30 Morphine Sulfate (morphine) 2 mg Q4H PRN IV SEVERE PAIN LEVEL 7-10; Start 10/05 at 21:30 Docusate Sodium (Colace) 100 mg Q12H PRN PO CONSTIPATION; Start 10/05/16 at 21: 30 Magnesium Hydroxide (Milk Of Mag) 30 ml DAILY PRN PO CONSTIPATION; Start at 21:30 Sodium Biphosphate/ Sodium Phosphate (Fleet Enema) 133 ml DAILY PRN [place] CONSTIPATION; Start 10/05/16 at 21:30 Famotidine (Pepcid) 20 mg DAILY PO Last administered on 10/18/16 08:54; Admin Dose 20 MG; Start 10/06/16 at 09:00 Lorazepam (Ativan) 0.5 mg Q6H PRN IV ANXIETY Last administered on 10/13/16 21: 38; Admin Dose 0.5 MG; Start 10/05/16 at 21:30 Hydralazine HCl (Apresoline) 10 mg Q6H PRN IV ELEVATED SYSTOLIC BP Last administered on 10/14/16 17:50; Admin Dose 10 MG; Start 10/05/16 at 21:30 Clonidine (Catapres) 0.1 mg Q6H PRN PO ELEVATED SYSTOLIC BP; Start 10/05/16 at 21:30 Nitroglycerin (Nitroglycerin (Sl Tab) 0.4 Mg) 1 tab Q5M PRN SL ANGINA; Start at 21:30 Aspirin 325 mg 325 mg DAILY PO Last administered on 10/18/16 08:54; Admin Dose 325 MG; Start 10/06/16 at 09:00 Diltiazem HCl (Cardizem-D5W 125 Mg/125 ml Drip) 125 ml @ 5 mls/hr TITRATE IV ; Start 10/05/16 at 22:00 Diagnostic Test (Pha) (Accucheck) 1 ea 02 XX Last administered on 10/18/16 01: 45; Admin Dose 1 EA; Start 10/07/16 at 02:00 Zolpidem Tartrate (Ambien) 5 mg HS PRN PO INSOMNIA Last administered on 20:39; Admin Dose 5 MG; Start 10/06/16 at 01:00 Miscellaneous Information 1 ea NOTE XX ; Start 10/06/16 at 01:00 Glucose (Glutose) 15 gm Q15M PRN PO DECREASED GLUCOSE; Start 10/06/16 at 01:00 Glucose (Glutose) 22.5 gm Q15M PRN PO DECREASED GLUCOSE; Start 10/06/16 at 01: 00 Dextrose (D50w Syringe) 25 ml Q15M PRN IV DECREASED GLUCOSE; Start 10/06/16 at 01:00 Dextrose (D50w Syringe) 50 ml Q15M PRN IV DECREASED GLUCOSE; Start 10/06/16 at 01:00 Glucagon (Glucagen) 1 mg Q15M PRN IM DECREASED GLUCOSE; Start 10/06/16 at 01:00 Glucose (Glutose) 15 gm Q15M PRN BUCCAL DECREASED GLUCOSE; Start 10/06/16 at 01 :00 Cyanocobalamin (Vitamin B12) 1,000 mcg DAILY PO Last administered on 10/18/16 08:55; Admin Dose 1,000 MCG; Start 10/06/16 at 09:00 Folic Acid (Folic Acid) 0.8 mg DAILY PO Last administered on 10/18/16 08:55; Admin Dose 0.8 MG; Start 10/06/16 at 09:00 Triamcinolone Acetonide (Kenalog 0.1% Oint) 1 applic BID TOP Last administered on 10/17/16 21:01; Admin Dose 1 APPLIC; Start 10/06/16 at 09:00 Ferrous Sulfate (Slow Fe) 142 mg DAILY PO Last administered on 10/18/16 09:14 ; Admin Dose 142 MG; Start 10/07/16 at 09:00 Magnesium Oxide (Mag-Ox 400) 400 mg DAILY PO Last administered on 10/18/16 08: 55; Admin Dose 400 MG; Start 10/06/16 at 13:00 Clopidogrel Bisulfate (plaVIX) 75 mg DAILY PO Last administered on 10/18/16 08 :54; Admin Dose 75 MG; Start 10/06/16 at 12:00 Atorvastatin Calcium (Lipitor) 40 mg QHS PO Last administered on 10/17/16 20: 59; Admin Dose 40 MG; Start 10/06/16 at 21:00 Zolpidem Tartrate (Ambien) 10 mg QHS PRN PO INSOMNIA Last administered on 21:16; Admin Dose 10 MG; Start 10/06/16 at 16:30 Lorazepam (Ativan) 1 mg HS PO Last administered on 10/17/16 21:10; Admin Dose 1 MG; Start 10/07/16 at 21:00 Insulin Glargine (Lantus) 10 unit HS SC Last administered on 10/17/16 21:28; Admin Dose 10 UNIT; Start 10/07/16 at 21:00 Linagliptin (Tradjenta) 5 mg DAILY PO Last administered on 10/18/16 08:55; Admin Dose 5 MG; Start 10/07/16 at 17:00 Metoprolol Succinate (Toprol Xl) 25 mg BID PO Last administered on 10/18/16 08 :54; Admin Dose 25 MG; Start 10/07/16 at 21:00 Heparin Sodium (Porcine) (Heparin (5000 Units/0.5 ml)) 5,000 unit BID SC Last administered on 10/18/16 09:08; Admin Dose 5,000 UNIT; Start 10/10/16 at 12:00 Nifedipine 60 mg 60 mg QHS PO Last administered on 10/17/16 20:59; Admin Dose 60 MG; Start 10/10/16 at 21:00 Piperacillin Sod/ Tazobactam Sod (Zosyn 2.25gm/ 50ml (Pmx)) 50 ml @ 100 mls/hr Q8 IVPB Last administered on 10/18/16 06:33; Admin Dose 100 MLS/HR; Start at 11:00 Acetaminophen (Tylenol Tab) 650 mg Q4H PRN PO NON-CARDIAC PAIN LEVEL (1-3) Last administered on 10/14/16 18:39; Admin Dose 650 MG; Start 10/13/16 at 11:00 Morphine Sulfate (morphine) 2 mg Q2H PRN IV FOR NON CARDIAC PAIN (4-10); Start 10/13/16 at 11:00 Al Hydrox/Mg Hydrox/Simethicone (Mag-Al Plus) 30 ml Q4H PRN PO GASTROINTESTINAL UPSET; Start 10/13/16 at 11:00 Ondansetron HCl 4 mg 4 mg Q4H PRN IV NAUSEA AND/OR VOMITING; Start 10/13/16 at 11:00 Vancomycin HCl (Vancocin) 250 ml @ 125 mls/hr Q96H IVPB Last administered on 14:53; Admin Dose 125 MLS/HR; Start 10/15/16 at 15:00 Lidocaine (Xylocaine 1% (Mpf)) 30 ml ONCE PRN INJ ANESTHESIA; Start 10/15/16 at 14:30 Benazepril HCl (Lotensin) 40 mg BID PO Last administered on 10/18/16 08:55; Admin Dose 40 MG; Start 10/15/16 at 21:00 Nifedipine (Procardia Xl) 30 mg AM PO Last administered on 10/18/16 08:54; Admin Dose 30 MG; Start 10/18/16 at 09:00 BALAJI YI MD Oct 18, 2016 09:48
[2016-10-18] MEDS: ACETAMINOPHEN 325 MG TAB PO PRN (11:45)
--- NOTE | 2016-10-18 13:08 | PN ---
DATE: 10/18/2016 SUBJECTIVE: The patient is stable, no acute events overnight. No fevers, chills, nausea, vomiting. OBJECTIVE: VITAL SIGNS: Blood pressure is 153/71, respirations 20, pulse 68, temperature 97.3. HEENT: Head is normocephalic. NECK: Supple. HEART: Regular rate. LUNGS: Show diminished breath sounds at the bases. ABDOMEN: Soft, nontender to palpation. No rebound or guarding. EXTREMITIES: Negative for clubbing, cyanosis. No edema. DERMATOLOGIC: No rashes. MUSCULOSKELETAL: No joint effusions. NEUROLOGIC: No change in exam. MEDICATIONS: The patient's medications have been reviewed. LABORATORY DATA: Shows sodium 132, potassium 4.3, chloride 98, bicarbonate 22, BUN 63, creatinine 7 .21. White count is 6.4, hemoglobin 9.2, hematocrit 29.0, platelet count is 256. ASSESSMENT AND PLAN: 1. End-stage renal disease. The patient's last hemodialysis was Monday. The patient is currentl y on a line holiday. We will ask vascular surgeon for Calvin catheter placement. Once placed, the patient will be dialyzed 2. Sepsis secondary to line infection. The patient's PermCath was removed. Continue IV antibiotic s. Repeat blood cultures in 24 hours. 3. Access. The patient will have a Calvin catheter placed for hemodialysis. Anticipate PermCath placement once repeat cultures are negative. 4. Cardiomyopathy and coronary artery disease. Continue medical management. 5. Anemia of chronic disease. Continue to monitor hemoglobin and hematocrit levels. 6. Atrial fibrillation, rate controlled. Continue medical management. 7. Diabetes. Continue Accu-Cheks and insulin sliding scale. 8. Hypertension. Continue current blood pressure regimen. 9. Status post respiratory failure. Dictated By: NOEMI BOTELLO/NTS Conf#: [id number] DID#: [id number]
--- NOTE | 2016-10-18 13:43 | CONS ---
Date/Time of Note Date/Time of Note DATE: 10/18/16 TIME: 13:41 Assessment/Plan Assessment/Plan Chief Complaint/Hosp Course SUBJECTIVE: No acute events, alert, feels good, no fevers MICROBIOLOGY: Blood cultures on 10/05/2016 grew gram-negative rods. Repeat blood culture on 10/09/2016 is also growing gram-negative rods. Culture on also growing gram-negative rods. ANTIMICROBIALS: 1. Zosyn. 2. Vancomycin. PHYSICAL EXAMINATION: GENERAL: This is well-developed, elderly man, who is alert, in no distress. HEENT: Head atraumatic, normocephalic. Sclerae anicteric. Buccal mucosa pink. NECK: Supple, trachea midline. CHEST: Chest rise is symmetrical. Breath sounds clear. HEART: S1, S2. ABDOMEN: Soft, bowel tones present. EXTREMITIES: Without cyanosis. ASSESSMENT: 1. Persistent bacteremia, likely secondary to infected PermCath==> s/p dc'd. 2. Anemia. 3. Atrial fibrillation. 4. Diabetes. 5. Pneumonia. PLAN: Remains stable, dc Vanco, continue Zosyn, repeat bld cx, line holiday DW staff/pt Problems: Consultation Date/Type/Reason Admit Date/Time Oct 05, 2016 at 21:04 Type of Consultation: id Referring Provider: JANAE ELDRIDGE Exam/Review of Systems Vital Signs Vitals Vital Signs Date Time Temp Pulse Resp B/P Pulse Ox O2 Delivery O2 Flow Rate FiO2 10/18/16 08:15 97.3 68 20 153/71 98 10/17/16 23:00 Room Air 10/15/16 15:46 21 Intake and Output 10/17/16 10/17/16 10/18/16 15:00 23:00 07:00 Intake Total 100 ml 720 ml 500 ml Balance 100 ml 720 ml 500 ml Results Result Diagram: 10/18/16 0525 10/18/16 0535 Results 24 hrs Laboratory Tests Test 10/17/16 19:58 10/18/16 01:43 10/18/16 05:25 10/18/16 05:35 Bedside Glucose 228 H 199 White Blood Count 6.4 Red Blood Count 3.43 L Hemoglobin 9.2 L Hematocrit 29.0 L Mean Corpuscular Volume 84.5 Mean Corpuscular Hemoglobin 26.8 L Mean Corpuscular Hemoglobin Concent 31.7 L Red Cell Distribution Width 15.5 H Platelet Count 256 Mean Platelet Volume 10.7 H Neutrophils % 51.0 Lymphocytes % 33.5 Monocytes % 9.2 Eosinophils % 4.8 Basophils % 0.6 Nucleated Red Blood Cells % 0.0 Neutrophils # 3.3 Lymphocytes # 2.2 Monocytes # 0.6 Eosinophils # 0.3 Basophils # 0.0 Nucleated Red Blood Cells # 0.0 Sodium Level 132 L Potassium Level 4.3 Chloride Level 98 Carbon Dioxide Level 22 Anion Gap 16 Blood Urea Nitrogen 63 H Creatinine 7.21 H Glucose Level 156 Calcium Level 8.6 Test 10/18/16 07:42 10/18/16 11:40 Bedside Glucose 145 231 H Medications Medications Current Medications Acetaminophen/ Hydrocodone Bitart ([place] (5/325)) 1 tab Q6H PRN PO MODERATE PAIN LEVEL 4-6; Start 10/05/16 at 21:30 Morphine Sulfate (morphine) 2 mg Q4H PRN IV SEVERE PAIN LEVEL 7-10; Start 10/05 at 21:30 Docusate Sodium (Colace) 100 mg Q12H PRN PO CONSTIPATION; Start 10/05/16 at 21: 30 Magnesium Hydroxide (Milk Of Mag) 30 ml DAILY PRN PO CONSTIPATION; Start at 21:30 Sodium Biphosphate/ Sodium Phosphate (Fleet Enema) 133 ml DAILY PRN [place] CONSTIPATION; Start 10/05/16 at 21:30 Famotidine (Pepcid) 20 mg DAILY PO Last administered on 10/18/16 08:54; Admin Dose 20 MG; Start 10/06/16 at 09:00 Lorazepam (Ativan) 0.5 mg Q6H PRN IV ANXIETY Last administered on 10/13/16 21: 38; Admin Dose 0.5 MG; Start 10/05/16 at 21:30 Hydralazine HCl (Apresoline) 10 mg Q6H PRN IV ELEVATED SYSTOLIC BP Last administered on 10/14/16 17:50; Admin Dose 10 MG; Start 10/05/16 at 21:30 Clonidine (Catapres) 0.1 mg Q6H PRN PO ELEVATED SYSTOLIC BP; Start 10/05/16 at 21:30 Nitroglycerin (Nitroglycerin (Sl Tab) 0.4 Mg) 1 tab Q5M PRN SL ANGINA; Start at 21:30 Aspirin 325 mg 325 mg DAILY PO Last administered on 10/18/16 08:54; Admin Dose 325 MG; Start 10/06/16 at 09:00 Diltiazem HCl (Cardizem-D5W 125 Mg/125 ml Drip) 125 ml @ 5 mls/hr TITRATE IV ; Start 10/05/16 at 22:00 Diagnostic Test (Pha) (Accucheck) 1 ea 02 XX Last administered on 10/18/16 01: 45; Admin Dose 1 EA; Start 10/07/16 at 02:00 Zolpidem Tartrate (Ambien) 5 mg HS PRN PO INSOMNIA Last administered on 20:39; Admin Dose 5 MG; Start 10/06/16 at 01:00 Miscellaneous Information 1 ea NOTE XX ; Start 10/06/16 at 01:00 Glucose (Glutose) 15 gm Q15M PRN PO DECREASED GLUCOSE; Start 10/06/16 at 01:00 Glucose (Glutose) 22.5 gm Q15M PRN PO DECREASED GLUCOSE; Start 10/06/16 at 01: 00 Dextrose (D50w Syringe) 25 ml Q15M PRN IV DECREASED GLUCOSE; Start 10/06/16 at 01:00 Dextrose (D50w Syringe) 50 ml Q15M PRN IV DECREASED GLUCOSE; Start 10/06/16 at 01:00 Glucagon (Glucagen) 1 mg Q15M PRN IM DECREASED GLUCOSE; Start 10/06/16 at 01:00 Glucose (Glutose) 15 gm Q15M PRN BUCCAL DECREASED GLUCOSE; Start 10/06/16 at 01 :00 Cyanocobalamin (Vitamin B12) 1,000 mcg DAILY PO Last administered on 10/18/16 08:55; Admin Dose 1,000 MCG; Start 10/06/16 at 09:00 Folic Acid (Folic Acid) 0.8 mg DAILY PO Last administered on 10/18/16 08:55; Admin Dose 0.8 MG; Start 10/06/16 at 09:00 Triamcinolone Acetonide (Kenalog 0.1% Oint) 1 applic BID TOP Last administered on 10/17/16 21:01; Admin Dose 1 APPLIC; Start 10/06/16 at 09:00 Ferrous Sulfate (Slow Fe) 142 mg DAILY PO Last administered on 10/18/16 09:14 ; Admin Dose 142 MG; Start 10/07/16 at 09:00 Magnesium Oxide (Mag-Ox 400) 400 mg DAILY PO Last administered on 10/18/16 08: 55; Admin Dose 400 MG; Start 10/06/16 at 13:00 Clopidogrel Bisulfate (plaVIX) 75 mg DAILY PO Last administered on 10/18/16 08 :54; Admin Dose 75 MG; Start 10/06/16 at 12:00 Atorvastatin Calcium (Lipitor) 40 mg QHS PO Last administered on 10/17/16 20: 59; Admin Dose 40 MG; Start 10/06/16 at 21:00 Zolpidem Tartrate (Ambien) 10 mg QHS PRN PO INSOMNIA Last administered on 21:16; Admin Dose 10 MG; Start 10/06/16 at 16:30 Lorazepam (Ativan) 1 mg HS PO Last administered on 10/17/16 21:10; Admin Dose 1 MG; Start 10/07/16 at 21:00 Insulin Glargine (Lantus) 10 unit HS SC Last administered on 10/17/16 21:28; Admin Dose 10 UNIT; Start 10/07/16 at 21:00 Linagliptin (Tradjenta) 5 mg DAILY PO Last administered on 10/18/16 08:55; Admin Dose 5 MG; Start 10/07/16 at 17:00 Metoprolol Succinate (Toprol Xl) 25 mg BID PO Last administered on 10/18/16 08 :54; Admin Dose 25 MG; Start 10/07/16 at 21:00 Heparin Sodium (Porcine) (Heparin (5000 Units/0.5 ml)) 5,000 unit BID SC Last administered on 10/18/16 09:08; Admin Dose 5,000 UNIT; Start 10/10/16 at 12:00 Nifedipine 60 mg 60 mg QHS PO Last administered on 10/17/16 20:59; Admin Dose 60 MG; Start 10/10/16 at 21:00 Piperacillin Sod/ Tazobactam Sod (Zosyn 2.25gm/ 50ml (Pmx)) 50 ml @ 100 mls/hr Q8 IVPB Last administered on 10/18/16 06:33; Admin Dose 100 MLS/HR; Start at 11:00 Acetaminophen (Tylenol Tab) 650 mg Q4H PRN PO NON-CARDIAC PAIN LEVEL (1-3) Last administered on 10/18/16 11:45; Admin Dose 650 MG; Start 10/13/16 at 11:00 Morphine Sulfate (morphine) 2 mg Q2H PRN IV FOR NON CARDIAC PAIN (4-10); Start 10/13/16 at 11:00 Al Hydrox/Mg Hydrox/Simethicone (Mag-Al Plus) 30 ml Q4H PRN PO GASTROINTESTINAL UPSET; Start 10/13/16 at 11:00 Ondansetron HCl 4 mg 4 mg Q4H PRN IV NAUSEA AND/OR VOMITING; Start 10/13/16 at 11:00 Vancomycin HCl (Vancocin) 250 ml @ 125 mls/hr Q96H IVPB Last administered on 14:53; Admin Dose 125 MLS/HR; Start 10/15/16 at 15:00 Lidocaine (Xylocaine 1% (Mpf)) 30 ml ONCE PRN INJ ANESTHESIA; Start 10/15/16 at 14:30 Benazepril HCl (Lotensin) 40 mg BID PO Last administered on 10/18/16 08:55; Admin Dose 40 MG; Start 10/15/16 at 21:00 Nifedipine (Procardia Xl) 30 mg AM PO Last administered on 10/18/16 08:54; Admin Dose 30 MG; Start 10/18/16 at 09:00 ALEXA BERRY NP Oct 18, 2016 13:43
--- NOTE | 2016-10-18 17:36 | PN ---
Date/Time of Note Date/Time of Note DATE: 10/18/16 TIME: 17:35 Assessment/Plan VTE Prophylaxis VTE Prophylaxis Intervention: heparin Lines/Catheters IV [facility] [place] [facility] Urinary Cath still in place: No Assessment/Plan Chief Complaint/Hosp Course 1. Acute respiratory distress secondary to volume overload with underlying end -stage renal disease and congestive heart failure, improved Stable on room air 2. Atrial fibrillation with rapid ventricular response, converted back to sinus now rate controlled 3. NSTEMI type 2 s/p LHC 10/13/16 with findings: * Moderate obstruction of distal left main but with excellent flow and moderate obstruction of mid LAD with excellent flow. * Widely patent LAD and circumflex stents. * Elevated left heart filling pressures. * No significant aortic stenosis by gradient. 4. End-stage renal disease on hemodialysis Hold dialysis during line holiday 5. History of diabetes mellitus type 2. Hemoglobin 6.3. 6. Anemia of chronic disease. 7. Known coronary artery disease with recent history of PTCA and stent placement at [facility]. 8. Hypertensive urgency, resolved. 9. Acute on chronic systolic congestive heart failure with Ischemic CM and ejection fraction of 25% 10. Probable line sepsis with Gram negative kait bacteremia: RALSTONIA PICKETTII Dialysis line removed, patient on line holiday continue IV antibiotics, placement of new access line Per ID and nephrology 11. Mild Chronic dementia with some mild underlying confusion 12. Mild Depression Prophylaxis: Heparin / pepcid Problems: Subjective 24 Hr Interval Summary Constitutional: no complaints Exam/Review of Systems Vital Signs Vitals Vital Signs Date Time Temp Pulse Resp B/P Pulse Ox O2 Delivery O2 Flow Rate FiO2 10/18/16 08:15 97.3 68 20 153/71 98 10/17/16 23:00 Room Air 10/15/16 15:46 21 Intake and Output 10/17/16 10/17/16 10/18/16 15:00 23:00 07:00 Intake Total 100 ml 720 ml 500 ml Balance 100 ml 720 ml 500 ml Exam Constitutional: alert Respiratory: clear to auscultation Cardiovascular: regular rate and rhythm Gastrointestinal: soft, No distended Musculoskeletal: nl extremities to inspection Results Result Diagram: 10/18/16 0525 10/18/16 0535 Results 24 hrs Laboratory Tests Test 10/17/16 19:58 10/18/16 01:43 10/18/16 05:25 10/18/16 05:35 Bedside Glucose 228 H 199 White Blood Count 6.4 Red Blood Count 3.43 L Hemoglobin 9.2 L Hematocrit 29.0 L Mean Corpuscular Volume 84.5 Mean Corpuscular Hemoglobin 26.8 L Mean Corpuscular Hemoglobin Concent 31.7 L Red Cell Distribution Width 15.5 H Platelet Count 256 Mean Platelet Volume 10.7 H Neutrophils % 51.0 Lymphocytes % 33.5 Monocytes % 9.2 Eosinophils % 4.8 Basophils % 0.6 Nucleated Red Blood Cells % 0.0 Neutrophils # 3.3 Lymphocytes # 2.2 Monocytes # 0.6 Eosinophils # 0.3 Basophils # 0.0 Nucleated Red Blood Cells # 0.0 Sodium Level 132 L Potassium Level 4.3 Chloride Level 98 Carbon Dioxide Level 22 Anion Gap 16 Blood Urea Nitrogen 63 H Creatinine 7.21 H Glucose Level 156 Calcium Level 8.6 Test 10/18/16 07:42 10/18/16 11:40 10/18/16 17:02 Bedside Glucose 145 231 H 180 Medications Medications Current Medications Acetaminophen/ Hydrocodone Bitart ([place] (5/325)) 1 tab Q6H PRN PO MODERATE PAIN LEVEL 4-6; Start 10/05/16 at 21:30 Morphine Sulfate (morphine) 2 mg Q4H PRN IV SEVERE PAIN LEVEL 7-10; Start 10/05 at 21:30 Docusate Sodium (Colace) 100 mg Q12H PRN PO CONSTIPATION; Start 10/05/16 at 21: 30 Magnesium Hydroxide (Milk Of Mag) 30 ml DAILY PRN PO CONSTIPATION; Start at 21:30 Sodium Biphosphate/ Sodium Phosphate (Fleet Enema) 133 ml DAILY PRN [place] CONSTIPATION; Start 10/05/16 at 21:30 Famotidine (Pepcid) 20 mg DAILY PO Last administered on 10/18/16 08:54; Admin Dose 20 MG; Start 10/06/16 at 09:00 Lorazepam (Ativan) 0.5 mg Q6H PRN IV ANXIETY Last administered on 10/13/16 21: 38; Admin Dose 0.5 MG; Start 10/05/16 at 21:30 Hydralazine HCl (Apresoline) 10 mg Q6H PRN IV ELEVATED SYSTOLIC BP Last administered on 10/14/16 17:50; Admin Dose 10 MG; Start 10/05/16 at 21:30 Clonidine (Catapres) 0.1 mg Q6H PRN PO ELEVATED SYSTOLIC BP; Start 10/05/16 at 21:30 Nitroglycerin (Nitroglycerin (Sl Tab) 0.4 Mg) 1 tab Q5M PRN SL ANGINA; Start at 21:30 Aspirin 325 mg 325 mg DAILY PO Last administered on 10/18/16 08:54; Admin Dose 325 MG; Start 10/06/16 at 09:00 Diltiazem HCl (Cardizem-D5W 125 Mg/125 ml Drip) 125 ml @ 5 mls/hr TITRATE IV ; Start 10/05/16 at 22:00 Diagnostic Test (Pha) (Accucheck) 1 ea 02 XX Last administered on 10/18/16 01: 45; Admin Dose 1 EA; Start 10/07/16 at 02:00 Zolpidem Tartrate (Ambien) 5 mg HS PRN PO INSOMNIA Last administered on 20:39; Admin Dose 5 MG; Start 10/06/16 at 01:00 Miscellaneous Information 1 ea NOTE XX ; Start 10/06/16 at 01:00 Glucose (Glutose) 15 gm Q15M PRN PO DECREASED GLUCOSE; Start 10/06/16 at 01:00 Glucose (Glutose) 22.5 gm Q15M PRN PO DECREASED GLUCOSE; Start 10/06/16 at 01: 00 Dextrose (D50w Syringe) 25 ml Q15M PRN IV DECREASED GLUCOSE; Start 10/06/16 at 01:00 Dextrose (D50w Syringe) 50 ml Q15M PRN IV DECREASED GLUCOSE; Start 10/06/16 at 01:00 Glucagon (Glucagen) 1 mg Q15M PRN IM DECREASED GLUCOSE; Start 10/06/16 at 01:00 Glucose (Glutose) 15 gm Q15M PRN BUCCAL DECREASED GLUCOSE; Start 10/06/16 at 01 :00 Cyanocobalamin (Vitamin B12) 1,000 mcg DAILY PO Last administered on 10/18/16 08:55; Admin Dose 1,000 MCG; Start 10/06/16 at 09:00 Folic Acid (Folic Acid) 0.8 mg DAILY PO Last administered on 10/18/16 08:55; Admin Dose 0.8 MG; Start 10/06/16 at 09:00 Triamcinolone Acetonide (Kenalog 0.1% Oint) 1 applic BID TOP Last administered on 10/17/16 21:01; Admin Dose 1 APPLIC; Start 10/06/16 at 09:00 Ferrous Sulfate (Slow Fe) 142 mg DAILY PO Last administered on 10/18/16 09:14 ; Admin Dose 142 MG; Start 10/07/16 at 09:00 Magnesium Oxide (Mag-Ox 400) 400 mg DAILY PO Last administered on 10/18/16 08: 55; Admin Dose 400 MG; Start 10/06/16 at 13:00 Clopidogrel Bisulfate (plaVIX) 75 mg DAILY PO Last administered on 10/18/16 08 :54; Admin Dose 75 MG; Start 10/06/16 at 12:00 Atorvastatin Calcium (Lipitor) 40 mg QHS PO Last administered on 10/17/16 20: 59; Admin Dose 40 MG; Start 10/06/16 at 21:00 Zolpidem Tartrate (Ambien) 10 mg QHS PRN PO INSOMNIA Last administered on 21:16; Admin Dose 10 MG; Start 10/06/16 at 16:30 Lorazepam (Ativan) 1 mg HS PO Last administered on 10/17/16 21:10; Admin Dose 1 MG; Start 10/07/16 at 21:00 Insulin Glargine (Lantus) 10 unit HS SC Last administered on 10/17/16 21:28; Admin Dose 10 UNIT; Start 10/07/16 at 21:00 Linagliptin (Tradjenta) 5 mg DAILY PO Last administered on 10/18/16 08:55; Admin Dose 5 MG; Start 10/07/16 at 17:00 Metoprolol Succinate (Toprol Xl) 25 mg BID PO Last administered on 10/18/16 08 :54; Admin Dose 25 MG; Start 10/07/16 at 21:00 Heparin Sodium (Porcine) (Heparin (5000 Units/0.5 ml)) 5,000 unit BID SC Last administered on 10/18/16 09:08; Admin Dose 5,000 UNIT; Start 10/10/16 at 12:00 Nifedipine 60 mg 60 mg QHS PO Last administered on 10/17/16 20:59; Admin Dose 60 MG; Start 10/10/16 at 21:00 Piperacillin Sod/ Tazobactam Sod (Zosyn 2.25gm/ 50ml (Pmx)) 50 ml @ 100 mls/hr Q8 IVPB Last administered on 10/18/16 13:41; Admin Dose 100 MLS/HR; Start at 11:00 Acetaminophen (Tylenol Tab) 650 mg Q4H PRN PO NON-CARDIAC PAIN LEVEL (1-3) Last administered on 10/18/16 11:45; Admin Dose 650 MG; Start 10/13/16 at 11:00 Morphine Sulfate (morphine) 2 mg Q2H PRN IV FOR NON CARDIAC PAIN (4-10); Start 10/13/16 at 11:00 Al Hydrox/Mg Hydrox/Simethicone (Mag-Al Plus) 30 ml Q4H PRN PO GASTROINTESTINAL UPSET; Start 10/13/16 at 11:00 Ondansetron HCl 4 mg 4 mg Q4H PRN IV NAUSEA AND/OR VOMITING; Start 10/13/16 at 11:00 Vancomycin HCl (Vancocin) 250 ml @ 125 mls/hr Q96H IVPB Last administered on 14:53; Admin Dose 125 MLS/HR; Start 10/15/16 at 15:00 Lidocaine (Xylocaine 1% (Mpf)) 30 ml ONCE PRN INJ ANESTHESIA; Start 10/15/16 at 14:30 Benazepril HCl (Lotensin) 40 mg BID PO Last administered on 10/18/16 08:55; Admin Dose 40 MG; Start 10/15/16 at 21:00 Nifedipine (Procardia Xl) 30 mg AM PO Last administered on 10/18/16 08:54; Admin Dose 30 MG; Start 10/18/16 at 09:00 JANAE ELDRIDGE Oct 18, 2016 17:36
[2016-10-18 21:12] VITALS: BP 179/88; RESP 19
[2016-10-18] MEDS: ATORVASTATIN 40 MG TAB PO SCH (21:15)
[2016-10-18] MEDS: LORAZEPAM 0.5 MG TAB PO SCH (21:15)
[2016-10-18] MEDS: NIFEdipine (XL) 60 MG TAB PO SCH (21:16)
[2016-10-18] MEDS: INSULIN GLARGINE [LANtus] 3 ML PEN SC SCH (21:32)
[2016-10-18] MEDS: ZOLPIDEM 5 MG TAB PO PRN (21:42)
[2016-10-18 23:45] VITALS: BP 177/82; PULSE 73
[2016-10-18] MEDS: hydrALAzine 20 MG INJ IV PRN (23:48)
[2016-10-19] VITALS (12 sets, daily range): BP systolic 122–192; BP diastolic 60–101; PULSE 73–84; RESP 14–18
[2016-10-19] MEDS: ACCU-CHEK XX SCH (02:00)
[2016-10-19 05:23] LABS: ADD SCAN DIFF NO
[2016-10-19] MEDS: PIPER-TAZO 2.25 GM (PMX) 50 ML IVPB SCH ×3 (05:26→22:27)
[2016-10-19 05:28] LABS: BASOPHIL # 0.1 10^3/ul (0.0-0.1); BASOPHILS % 0.7 % (0.0-2.0); EOSINOPHILS # 0.3 10^3/ul (0.0-0.5); EOSINOPHILS % 3.8 % (0.0-7.0); HEMATOCRIT 28.3 % (42.0-52.0); HEMOGLOBIN 9.2 g/dl (14.0-18.0); LYMPHOCYTES # 2.1 10^3/ul (0.8-2.9); LYMPHOCYTES % 25.4 % (15.0-51.0); MEAN CORPUSCULAR HEMOGLOBIN 27.1 pg (29.0-33.0); MEAN CORPUSCULAR HGB CONC 32.5 g/dl (32.0-37.0); MEAN CORPUSCULAR VOLUME 83.5 fl (82.0-101.0); MEAN PLATELET VOLUME 10.9 fl (7.4-10.4); MONOCYTE # 0.6 10^3/ul (0.3-0.9); MONOCYTES % 7.3 % (0.0-11.0); NEUTROPHIL # 5.2 10^3/ul (1.6-7.5); NEUTROPHILS % 62.2 % (39.0-77.0); PLATELET COUNT 286 10^3/UL (140-415); RED BLOOD COUNT 3.39 10^6/ul (4.70-6.10); RED CELL DISTRIBUTION WIDTH 15.5 % (11.5-14.5); WHITE BLOOD COUNT 8.3 10^3/ul (4.8-10.8)
[2016-10-19 05:43] LABS: POTASSIUM 4.5 mmol/L (3.5-5.1)
[2016-10-19 05:45] LABS: CREATININE 8.03 mg/dl (0.61-1.24)
[2016-10-19 05:46] LABS: PHOSPHORUS 4.1 mg/dl (2.5-4.9)
[2016-10-19 05:47] LABS: CALCIUM 8.8 mg/dl (8.4-10.2); MAGNESIUM 2.4 mg/dl (1.7-2.5)
[2016-10-19] MEDS: INSULIN ASPART [NOVOLOG] 3 ML PEN SC SCH ×4 (08:00→22:25)
[2016-10-19] MEDS: TRIAMCINOLONE ACET 0.1% 15 GM OINT TOP SCH ×2 (09:45→21:00)
[2016-10-19] MEDS: METOPROLOL (XL) 25 MG TAB PO SCH ×2 (09:46→22:22)
[2016-10-19] MEDS: CLOPIDOGREL 75 MG TAB PO SCH (09:46)
[2016-10-19] MEDS: LINAGLIPTIN 5 MG TABLET PO SCH (09:46)
[2016-10-19] MEDS: MAGNESIUM OXIDE 400 MG TAB PO SCH (09:46)
[2016-10-19] MEDS: ASPIRIN (EC) 325 MG TAB PO SCH (09:46)
[2016-10-19] MEDS: FOLIC ACID 0.4 MG TAB PO SCH (09:46)
[2016-10-19] MEDS: FAMOTIDINE 20 MG TAB PO SCH (09:46)
[2016-10-19] MEDS: CYANOCOBALAMIN 500 MCG TAB PO SCH (09:47)
[2016-10-19] MEDS: BENAZEPRIL 40 MG TAB PO SCH ×2 (09:47→22:21)
[2016-10-19] MEDS: NIFEdipine (XL) 30 MG TAB PO SCH (09:47)
[2016-10-19] MEDS: HEPARIN 5,000 UNIT/0.5 ML SYG SC SCH ×2 (09:48→22:23)
--- NOTE | 2016-10-19 10:21 | PN ---
DATE: 10/19/2016 SUBJECTIVE: The patient is stable, no acute events overnight. No fevers, chills, nausea, vomiting. OBJECTIVE: VITAL SIGNS: Blood pressure is 160/78, respiration 18, pulse 72, temperature 97.4. HEENT: Head is normocephalic. NECK: Supple. HEART: Regular rate. LUNGS: Show diminished breath sounds at base. ABDOMEN: Soft, nontender to palpation without rebound or guarding. EXTREMITIES: Negative for clubbing, cyanosis, edema. DERMATOLOGIC: No rashes. MUSCULOSKELETAL: No joint effusions. NEUROLOGIC: No change in exam. MEDICATIONS: The patient's medications have been reviewed. LABORATORY DATA: Shows sodium 134, potassium 4.5, chloride 98, BUN 76, creatinine 8.03. White coun t 8.3, hemoglobin 9.2, hematocrit 28.3, platelet count 286. ASSESSMENT AND PLAN: 1. End-stage renal disease. The patient's last hemodialysis was on Monday. The patient has been on line holiday. Anticipate Calvin catheter placement today by Dr. Ferreira. Once the catheter is placed, the patient will be dialyzed. 2. Sepsis secondary to line infection. The patient's Perm-A-Cath was removed. Continue antibiotic therapy. Repeat cultures have been sent. We will follow up results. 3. Access. The patient is pending per Calvin catheter placement for dialysis. The patient will e ventually need a Perm-A-Cath placement once of repeat cultures have been negative. 4. Cardiomyopathy, coronary artery disease. Continue medical management. 5. Anemia of chronic disease. Continue to monitor hemoglobin and hematocrit levels. Will give Epo gen as needed. 6. Atrial fibrillation, rate controlled. Continue medical management. 7. Diabetes. Continue Accu-Cheks and sliding scale. 8. Hypertension. Continue current blood pressure regimen. 9. Status post respiratory failure. Dictated By: NOEMI LOUIE DO NR/NTS Conf#: [id number] DID#: [id number]
--- NOTE | 2016-10-19 11:16 | PN ---
Date/Time of Note Date/Time of Note DATE: 10/19/16 TIME: 11:15 Assessment/Plan VTE Prophylaxis VTE Prophylaxis Intervention: heparin Lines/Catheters IV [facility]from [facility] Urinary Cath still in place: No Assessment/Plan Chief Complaint/Hosp Course 1. Acute respiratory distress secondary to volume overload with underlying end -stage renal disease and congestive heart failure, improved Stable on room air 2. Atrial fibrillation with rapid ventricular response, converted back to sinus now rate controlled 3. NSTEMI type 2 s/p LHC 10/13/16 with findings: * Moderate obstruction of distal left main but with excellent flow and moderate obstruction of mid LAD with excellent flow. * Widely patent LAD and circumflex stents. * Elevated left heart filling pressures. * No significant aortic stenosis by gradient. 4. End-stage renal disease on hemodialysis Hold dialysis during line holiday 5. History of diabetes mellitus type 2. Hemoglobin 6.3. 6. Anemia of chronic disease. 7. Known coronary artery disease with recent history of PTCA and stent placement at [facility]. 8. Hypertensive urgency, resolved. 9. Acute on chronic systolic congestive heart failure with Ischemic CM and ejection fraction of 25% 10. Probable line sepsis with Gram negative kait bacteremia: RALSTONIA PICKETTII Dialysis line removed, patient on line holiday continue IV antibiotics, placement of new access line Per ID and nephrology, possibly today 11. Mild Chronic dementia with some mild underlying confusion 12. Mild Depression Prophylaxis: Heparin / pepcid Problems: Subjective 24 Hr Interval Summary Constitutional: no complaints Exam/Review of Systems Vital Signs Vitals Vital Signs Date Time Temp Pulse Resp B/P Pulse Ox O2 Delivery O2 Flow Rate FiO2 10/19/16 10:55 21 10/19/16 08:53 97.4 72 18 160/78 98 10/17/16 23:00 Room Air Intake and Output 10/18/16 10/18/16 10/19/16 15:00 23:00 07:00 Intake Total 100 ml 1510 ml 150 ml Balance 100 ml 1510 ml 150 ml Exam Constitutional: alert, oriented Respiratory: clear to auscultation Cardiovascular: regular rate and rhythm Gastrointestinal: soft, No distended Musculoskeletal: nl extremities to inspection Results Result Diagram: 10/19/16 0455 10/19/16 0455 Results 24 hrs Laboratory Tests Test 10/18/16 11:40 10/18/16 17:02 10/18/16 21:12 10/19/16 02:07 Bedside Glucose 231 H 180 208 115 Test 10/19/16 04:55 10/19/16 08:12 White Blood Count 8.3 # Red Blood Count 3.39 L Hemoglobin 9.2 L Hematocrit 28.3 L Mean Corpuscular Volume 83.5 Mean Corpuscular Hemoglobin 27.1 L Mean Corpuscular Hemoglobin Concent 32.5 Red Cell Distribution Width 15.5 H Platelet Count 286 Mean Platelet Volume 10.9 H Neutrophils % 62.2 Lymphocytes % 25.4 Monocytes % 7.3 Eosinophils % 3.8 Basophils % 0.7 Nucleated Red Blood Cells % 0.0 Neutrophils # 5.2 Lymphocytes # 2.1 Monocytes # 0.6 Eosinophils # 0.3 Basophils # 0.1 Nucleated Red Blood Cells # 0.0 Sodium Level 134 L Potassium Level 4.5 Chloride Level 98 Carbon Dioxide Level 21 Anion Gap 20 H Blood Urea Nitrogen 76 H Creatinine 8.03 H Glucose Level 71 # Calcium Level 8.8 Phosphorus Level 4.1 Magnesium Level 2.4 Bedside Glucose 108 Medications Medications Current Medications Acetaminophen/ Hydrocodone Bitart ([place] (5/325)) 1 tab Q6H PRN PO MODERATE PAIN LEVEL 4-6; Start 10/05/16 at 21:30 Morphine Sulfate (morphine) 2 mg Q4H PRN IV SEVERE PAIN LEVEL 7-10; Start 10/05 at 21:30 Docusate Sodium (Colace) 100 mg Q12H PRN PO CONSTIPATION; Start 10/05/16 at 21: 30 Magnesium Hydroxide (Milk Of Mag) 30 ml DAILY PRN PO CONSTIPATION; Start at 21:30 Sodium Biphosphate/ Sodium Phosphate (Fleet Enema) 133 ml DAILY PRN [place] CONSTIPATION; Start 10/05/16 at 21:30 Famotidine (Pepcid) 20 mg DAILY PO Last administered on 10/19/16 09:46; Admin Dose 20 MG; Start 10/06/16 at 09:00 Lorazepam (Ativan) 0.5 mg Q6H PRN IV ANXIETY Last administered on 10/13/16 21: 38; Admin Dose 0.5 MG; Start 10/05/16 at 21:30 Hydralazine HCl (Apresoline) 10 mg Q6H PRN IV ELEVATED SYSTOLIC BP Last administered on 10/18/16 23:48; Admin Dose 10 MG; Start 10/05/16 at 21:30 Clonidine (Catapres) 0.1 mg Q6H PRN PO ELEVATED SYSTOLIC BP; Start 10/05/16 at 21:30 Nitroglycerin (Nitroglycerin (Sl Tab) 0.4 Mg) 1 tab Q5M PRN SL ANGINA; Start at 21:30 Aspirin 325 mg 325 mg DAILY PO Last administered on 10/19/16 09:46; Admin Dose 325 MG; Start 10/06/16 at 09:00 Diltiazem HCl (Cardizem-D5W 125 Mg/125 ml Drip) 125 ml @ 5 mls/hr TITRATE IV ; Start 10/05/16 at 22:00 Diagnostic Test (Pha) (Accucheck) 1 ea 02 XX Last administered on 10/19/16 02: 00; Admin Dose 1 EA; Start 10/07/16 at 02:00 Zolpidem Tartrate (Ambien) 5 mg HS PRN PO INSOMNIA Last administered on 20:39; Admin Dose 5 MG; Start 10/06/16 at 01:00 Miscellaneous Information 1 ea NOTE XX ; Start 10/06/16 at 01:00 Glucose (Glutose) 15 gm Q15M PRN PO DECREASED GLUCOSE; Start 10/06/16 at 01:00 Glucose (Glutose) 22.5 gm Q15M PRN PO DECREASED GLUCOSE; Start 10/06/16 at 01: 00 Dextrose (D50w Syringe) 25 ml Q15M PRN IV DECREASED GLUCOSE; Start 10/06/16 at 01:00 Dextrose (D50w Syringe) 50 ml Q15M PRN IV DECREASED GLUCOSE; Start 10/06/16 at 01:00 Glucagon (Glucagen) 1 mg Q15M PRN IM DECREASED GLUCOSE; Start 10/06/16 at 01:00 Glucose (Glutose) 15 gm Q15M PRN BUCCAL DECREASED GLUCOSE; Start 10/06/16 at 01 :00 Cyanocobalamin (Vitamin B12) 1,000 mcg DAILY PO Last administered on 10/19/16 09:47; Admin Dose 1,000 MCG; Start 10/06/16 at 09:00 Folic Acid (Folic Acid) 0.8 mg DAILY PO Last administered on 10/19/16 09:46; Admin Dose 0.8 MG; Start 10/06/16 at 09:00 Triamcinolone Acetonide (Kenalog 0.1% Oint) 1 applic BID TOP Last administered on 10/19/16 09:45; Admin Dose 1 APPLIC; Start 10/06/16 at 09:00 Ferrous Sulfate (Slow Fe) 142 mg DAILY PO Last administered on 10/18/16 09:14 ; Admin Dose 142 MG; Start 10/07/16 at 09:00 Magnesium Oxide (Mag-Ox 400) 400 mg DAILY PO Last administered on 10/19/16 09: 46; Admin Dose 400 MG; Start 10/06/16 at 13:00 Clopidogrel Bisulfate (plaVIX) 75 mg DAILY PO Last administered on 10/19/16 09 :46; Admin Dose 75 MG; Start 10/06/16 at 12:00 Atorvastatin Calcium (Lipitor) 40 mg QHS PO Last administered on 10/18/16 21: 15; Admin Dose 40 MG; Start 10/06/16 at 21:00 Zolpidem Tartrate (Ambien) 10 mg QHS PRN PO INSOMNIA Last administered on 21:42; Admin Dose 10 MG; Start 10/06/16 at 16:30 Lorazepam (Ativan) 1 mg HS PO Last administered on 10/18/16 21:15; Admin Dose 1 MG; Start 10/07/16 at 21:00 Insulin Glargine (Lantus) 10 unit HS SC Last administered on 10/18/16 21:32; Admin Dose 10 UNIT; Start 10/07/16 at 21:00 Linagliptin (Tradjenta) 5 mg DAILY PO Last administered on 10/19/16 09:46; Admin Dose 5 MG; Start 10/07/16 at 17:00 Metoprolol Succinate (Toprol Xl) 25 mg BID PO Last administered on 10/19/16 09 :46; Admin Dose 25 MG; Start 10/07/16 at 21:00 Heparin Sodium (Porcine) (Heparin (5000 Units/0.5 ml)) 5,000 unit BID SC Last administered on 10/19/16 09:48; Admin Dose 5,000 UNIT; Start 10/10/16 at 12:00 Nifedipine 60 mg 60 mg QHS PO Last administered on 10/18/16 21:16; Admin Dose 60 MG; Start 10/10/16 at 21:00 Piperacillin Sod/ Tazobactam Sod (Zosyn 2.25gm/ 50ml (Pmx)) 50 ml @ 100 mls/hr Q8 IVPB Last administered on 10/19/16 05:26; Admin Dose 100 MLS/HR; Start at 11:00 Acetaminophen (Tylenol Tab) 650 mg Q4H PRN PO NON-CARDIAC PAIN LEVEL (1-3) Last administered on 10/18/16 11:45; Admin Dose 650 MG; Start 10/13/16 at 11:00 Morphine Sulfate (morphine) 2 mg Q2H PRN IV FOR NON CARDIAC PAIN (4-10); Start 10/13/16 at 11:00 Al Hydrox/Mg Hydrox/Simethicone (Mag-Al Plus) 30 ml Q4H PRN PO GASTROINTESTINAL UPSET; Start 10/13/16 at 11:00 Ondansetron HCl (Zofran Inj) 4 mg Q4H PRN IV NAUSEA AND/OR VOMITING; Start at 11:00 Lidocaine (Xylocaine 1% (Mpf)) 30 ml ONCE PRN INJ ANESTHESIA; Start 10/15/16 at 14:30 Benazepril HCl (Lotensin) 40 mg BID PO Last administered on 10/19/16 09:47; Admin Dose 40 MG; Start 10/15/16 at 21:00 Nifedipine (Procardia Xl) 30 mg AM PO Last administered on 10/19/16 09:47; Admin Dose 30 MG; Start 10/18/16 at 09:00 JANAE ELDRIDGE Oct 19, 2016 11:16
--- NOTE | 2016-10-19 13:41 | OPR ---
Date/Time of Note Date/Time of Note DATE: 10/19/16 TIME: 13:40 Operative Report Free Text/Dictation DATE OF OPERATION: 10/19/2016 SURGEON: Patrick Lim MD PREOPERATIVE DIAGNOSIS: ESRD POSTOPERATIVE DIAGNOSIS: same ANESTHESIA: Local BLOOD LOSS: minimal COMPLICATIONS: None. ACCESS: Right common femoral vein INDICATIONS: This is a 76 year-old male with ESRD requiring dialysis. Patient and family have been informed of the alternatives, risks, and benefits. Risks including but not limited to bleeding, thrombosis, embolization, myocardial infarction, , device malfunction, infection, pneumothorax, nephrotoxicity and patient has agreed to proceed. PROCEDURE: 1. Ultrasound guided access of right common femoral vein 2. Right common femoral vein non-tunneled hemodialysis catheter placement DESCRIPTION: The patient was in supine position in his bed. Bed was placed in slight Trendelenburg position and the groin was prepped and draped with sterile technique. The central catheter was flushed with heparin to ensure function of each port. Landmarks were identified and the skin entry site was chosen using ultrasound guidance. The skin And subcutaneous tissue were anesthetized with 1% lidocaine. The vein was then located with a needle with a 10 mL syringe using ultrasound guidance. The needle was then directed towards the vein and was entered. The needle position was secured and syringe was removed. The hub was occluded to prevent venous air embolus. The guidewire was passed easily and the needle was removed while the wire was held in place. A small incision was then made at the point of the wire entry. The dilator was placed over the wire and the tract gently dilated. The catheter was fed over the wire, ensuring the wire exited from the port before advancing the catheter. The catheter was inserted to the desired depth and the wire removed. Each port was aspirated to ensure adequate blood flow and then flushed with heparinized saline solution. The catheter was secured in place with a 2-0 nylon suture and a sterile dressing was applied. The patient tolerated the procedure well and was in stable condition. All instrument, sponge and needle counts were correct 2. PATRICK LIM MD Oct 19, 2016 13:41
--- NOTE | 2016-10-19 13:49 | CONS ---
Date/Time of Note Date/Time of Note DATE: 10/19/16 TIME: 13:48 Assessment/Plan Assessment/Plan Chief Complaint/Hosp Course SUBJECTIVE: No acute events, alert, eating lunch, nad MICROBIOLOGY: Blood cultures on 10/05/2016 grew gram-negative rods. Repeat blood culture on 10/09/2016 is also growing gram-negative rods. Culture on also growing gram-negative rods. ANTIMICROBIALS: Zosyn. Indwelling: R fem Calvin 10/19/16 PHYSICAL EXAMINATION: GENERAL: This is well-developed, elderly man, who is alert, in no distress. HEENT: Head atraumatic, normocephalic. Sclerae anicteric. Buccal mucosa pink. NECK: Supple, trachea midline. CHEST: Chest rise is symmetrical. Breath sounds clear. HEART: S1, S2. ABDOMEN: Soft, bowel tones present. EXTREMITIES: Without cyanosis. ASSESSMENT: 1. Persistent bacteremia, likely secondary to infected PermCath==> s/p dc'd. 2. Anemia. 3. Atrial fibrillation. 4. Diabetes. 5. Pneumonia. PLAN: Remains stable, continue Zosyn, f/u repeat bld cx, HD per renal DW staff/pt Problems: Consultation Date/Type/Reason Admit Date/Time Oct 05, 2016 at 21:04 Type of Consultation: id Referring Provider: JANAE ELDRIDGE Exam/Review of Systems Vital Signs Vitals Vital Signs Date Time Temp Pulse Resp B/P Pulse Ox O2 Delivery O2 Flow Rate FiO2 10/19/16 10:55 21 10/19/16 08:53 97.4 72 18 160/78 98 10/17/16 23:00 Room Air Intake and Output 10/18/16 10/18/16 10/19/16 15:00 23:00 07:00 Intake Total 100 ml 1510 ml 150 ml Balance 100 ml 1510 ml 150 ml Results Result Diagram: 10/19/16 0455 10/19/16 0455 Results 24 hrs Laboratory Tests Test 10/18/16 17:02 10/18/16 21:12 10/19/16 02:07 10/19/16 04:55 Bedside Glucose 180 208 115 White Blood Count 8.3 # Red Blood Count 3.39 L Hemoglobin 9.2 L Hematocrit 28.3 L Mean Corpuscular Volume 83.5 Mean Corpuscular Hemoglobin 27.1 L Mean Corpuscular Hemoglobin Concent 32.5 Red Cell Distribution Width 15.5 H Platelet Count 286 Mean Platelet Volume 10.9 H Neutrophils % 62.2 Lymphocytes % 25.4 Monocytes % 7.3 Eosinophils % 3.8 Basophils % 0.7 Nucleated Red Blood Cells % 0.0 Neutrophils # 5.2 Lymphocytes # 2.1 Monocytes # 0.6 Eosinophils # 0.3 Basophils # 0.1 Nucleated Red Blood Cells # 0.0 Sodium Level 134 L Potassium Level 4.5 Chloride Level 98 Carbon Dioxide Level 21 Anion Gap 20 H Blood Urea Nitrogen 76 H Creatinine 8.03 H Glucose Level 71 # Calcium Level 8.8 Phosphorus Level 4.1 Magnesium Level 2.4 Test 10/19/16 08:12 Bedside Glucose 108 Medications Medications Current Medications Acetaminophen/ Hydrocodone Bitart ([place] (5/325)) 1 tab Q6H PRN PO MODERATE PAIN LEVEL 4-6; Start 10/05/16 at 21:30 Morphine Sulfate (morphine) 2 mg Q4H PRN IV SEVERE PAIN LEVEL 7-10; Start 10/05 at 21:30 Docusate Sodium (Colace) 100 mg Q12H PRN PO CONSTIPATION; Start 10/05/16 at 21: 30 Magnesium Hydroxide (Milk Of Mag) 30 ml DAILY PRN PO CONSTIPATION; Start at 21:30 Sodium Biphosphate/ Sodium Phosphate (Fleet Enema) 133 ml DAILY PRN [place] CONSTIPATION; Start 10/05/16 at 21:30 Famotidine (Pepcid) 20 mg DAILY PO Last administered on 10/19/16 09:46; Admin Dose 20 MG; Start 10/06/16 at 09:00 Lorazepam (Ativan) 0.5 mg Q6H PRN IV ANXIETY Last administered on 10/13/16 21: 38; Admin Dose 0.5 MG; Start 10/05/16 at 21:30 Hydralazine HCl (Apresoline) 10 mg Q6H PRN IV ELEVATED SYSTOLIC BP Last administered on 10/18/16 23:48; Admin Dose 10 MG; Start 10/05/16 at 21:30 Clonidine (Catapres) 0.1 mg Q6H PRN PO ELEVATED SYSTOLIC BP; Start 10/05/16 at 21:30 Nitroglycerin (Nitroglycerin (Sl Tab) 0.4 Mg) 1 tab Q5M PRN SL ANGINA; Start at 21:30 Aspirin 325 mg 325 mg DAILY PO Last administered on 10/19/16 09:46; Admin Dose 325 MG; Start 10/06/16 at 09:00 Diltiazem HCl (Cardizem-D5W 125 Mg/125 ml Drip) 125 ml @ 5 mls/hr TITRATE IV ; Start 10/05/16 at 22:00 Diagnostic Test (Pha) (Accucheck) 1 ea 02 XX Last administered on 10/19/16 02: 00; Admin Dose 1 EA; Start 10/07/16 at 02:00 Zolpidem Tartrate (Ambien) 5 mg HS PRN PO INSOMNIA Last administered on 20:39; Admin Dose 5 MG; Start 10/06/16 at 01:00 Miscellaneous Information 1 ea NOTE XX ; Start 10/06/16 at 01:00 Glucose (Glutose) 15 gm Q15M PRN PO DECREASED GLUCOSE; Start 10/06/16 at 01:00 Glucose (Glutose) 22.5 gm Q15M PRN PO DECREASED GLUCOSE; Start 10/06/16 at 01: 00 Dextrose (D50w Syringe) 25 ml Q15M PRN IV DECREASED GLUCOSE; Start 10/06/16 at 01:00 Dextrose (D50w Syringe) 50 ml Q15M PRN IV DECREASED GLUCOSE; Start 10/06/16 at 01:00 Glucagon (Glucagen) 1 mg Q15M PRN IM DECREASED GLUCOSE; Start 10/06/16 at 01:00 Glucose (Glutose) 15 gm Q15M PRN BUCCAL DECREASED GLUCOSE; Start 10/06/16 at 01 :00 Cyanocobalamin (Vitamin B12) 1,000 mcg DAILY PO Last administered on 10/19/16 09:47; Admin Dose 1,000 MCG; Start 10/06/16 at 09:00 Folic Acid (Folic Acid) 0.8 mg DAILY PO Last administered on 10/19/16 09:46; Admin Dose 0.8 MG; Start 10/06/16 at 09:00 Triamcinolone Acetonide (Kenalog 0.1% Oint) 1 applic BID TOP Last administered on 10/19/16 09:45; Admin Dose 1 APPLIC; Start 10/06/16 at 09:00 Ferrous Sulfate (Slow Fe) 142 mg DAILY PO Last administered on 10/18/16 09:14 ; Admin Dose 142 MG; Start 10/07/16 at 09:00 Magnesium Oxide (Mag-Ox 400) 400 mg DAILY PO Last administered on 10/19/16 09: 46; Admin Dose 400 MG; Start 10/06/16 at 13:00 Clopidogrel Bisulfate (plaVIX) 75 mg DAILY PO Last administered on 10/19/16 09 :46; Admin Dose 75 MG; Start 10/06/16 at 12:00 Atorvastatin Calcium (Lipitor) 40 mg QHS PO Last administered on 10/18/16 21: 15; Admin Dose 40 MG; Start 10/06/16 at 21:00 Zolpidem Tartrate (Ambien) 10 mg QHS PRN PO INSOMNIA Last administered on 21:42; Admin Dose 10 MG; Start 10/06/16 at 16:30 Lorazepam (Ativan) 1 mg HS PO Last administered on 10/18/16 21:15; Admin Dose 1 MG; Start 10/07/16 at 21:00 Insulin Glargine (Lantus) 10 unit HS SC Last administered on 10/18/16 21:32; Admin Dose 10 UNIT; Start 10/07/16 at 21:00 Linagliptin (Tradjenta) 5 mg DAILY PO Last administered on 10/19/16 09:46; Admin Dose 5 MG; Start 10/07/16 at 17:00 Metoprolol Succinate (Toprol Xl) 25 mg BID PO Last administered on 10/19/16 09 :46; Admin Dose 25 MG; Start 10/07/16 at 21:00 Heparin Sodium (Porcine) (Heparin (5000 Units/0.5 ml)) 5,000 unit BID SC Last administered on 10/19/16 09:48; Admin Dose 5,000 UNIT; Start 10/10/16 at 12:00 Nifedipine 60 mg 60 mg QHS PO Last administered on 10/18/16 21:16; Admin Dose 60 MG; Start 10/10/16 at 21:00 Piperacillin Sod/ Tazobactam Sod (Zosyn 2.25gm/ 50ml (Pmx)) 50 ml @ 100 mls/hr Q8 IVPB Last administered on 10/19/16 05:26; Admin Dose 100 MLS/HR; Start at 11:00 Acetaminophen (Tylenol Tab) 650 mg Q4H PRN PO NON-CARDIAC PAIN LEVEL (1-3) Last administered on 10/18/16 11:45; Admin Dose 650 MG; Start 10/13/16 at 11:00 Morphine Sulfate (morphine) 2 mg Q2H PRN IV FOR NON CARDIAC PAIN (4-10); Start 10/13/16 at 11:00 Al Hydrox/Mg Hydrox/Simethicone (Mag-Al Plus) 30 ml Q4H PRN PO GASTROINTESTINAL UPSET; Start 10/13/16 at 11:00 Ondansetron HCl (Zofran Inj) 4 mg Q4H PRN IV NAUSEA AND/OR VOMITING; Start at 11:00 Lidocaine (Xylocaine 1% (Mpf)) 30 ml ONCE PRN INJ ANESTHESIA; Start 10/15/16 at 14:30 Benazepril HCl (Lotensin) 40 mg BID PO Last administered on 10/19/16 09:47; Admin Dose 40 MG; Start 10/15/16 at 21:00 Nifedipine (Procardia Xl) 30 mg AM PO Last administered on 10/19/16 09:47; Admin Dose 30 MG; Start 10/18/16 at 09:00 ALEXA BERRY NP Oct 19, 2016 13:49
[2016-10-19] MEDS: FERROUS SULFATE (SR) 142 MG TAB PO SCH (15:06)
--- NOTE | 2016-10-19 15:25 | CONS ---
Date/Time of Note Date/Time of Note DATE: 10/19/16 TIME: 15:23 Assessment/Plan Assessment/Plan Chief Complaint/Hosp Course IMPRESSION: 1. Atrial fibrillation with rapid ventricular response-now in SR 2. Abnormal electrocardiogram with inferolateral ST depressions. 3. Positive troponin, assess significance. 4. Cardiomyopathy, decreased left ventricular ejection fraction last approximately 45% by outside hospital paperwork at [facility] 09/09. Now approx 25% by echo here 5. History of PTCA and stent placement at [facility] recently.-per notes had PCI at [facility](08/2016)after being thought to be poor surgical candidate but cath report not sent from [place]. Had originally transferred from [facility] where was cathed and found to have 3VD after suffering PA.-Now s/p LHC today with moderate disease of distal LMN and mid LAD but otherwise patent vessels and stents 6. Renal failure. 7. Hypertension-now uncontrolled 8. Shortness of breath. 9. Generalized weakness. 10. Diabetes mellitus. 11. Anemia-worsening 12.CHF-systolic acute on chronic 14.Bacteremia-GNR persistent-most recent bld cx's now negative Recc: -Tele -Continue BB/JUDY -Increase CCB to improve SBP as necessary -Continue asa/plavix/statin -HD for volume removal -SQ heparin -Continue abx's and f/u cx data Problems: Consultation Date/Type/Reason Admit Date/Time Oct 05, 2016 at 21:04 Initial Consult Date 10/06/2016 Type of Consultation: Cardiology Reason for Consultation cardiomyopathy Referring Provider: JANAE ELDRIDGE Exam/Review of Systems Vital Signs Vitals Vital Signs Date Time Temp Pulse Resp B/P Pulse Ox O2 Delivery O2 Flow Rate FiO2 10/19/16 13:45 74 14 181/80 98 Room Air 10/19/16 10:55 21 10/19/16 08:53 97.4 Intake and Output 10/18/16 10/18/16 10/19/16 15:00 23:00 07:00 Intake Total 100 ml 1510 ml 150 ml Balance 100 ml 1510 ml 150 ml Exam Review of Systems: CONSTITUTIONAL: No fevers, chills. PULMONARY: No sob CARDIOVASCULAR: No chest pain/palpitations GASTROINTESTINAL: No nausea/vomiting. GENITOURINARY: No hematuria/dysuria. MUSCULOSKELETAL: No myagias/arthalgias. PSYCHIATRIC: The patient denies depression. NEUROLOGIC: lethargic Constitutional: alert, oriented Psych: no complaints Head: normocephalic ENMT: mucosa pink and moist Neck: jvd (9 cm water), supple Respiratory: diminished breath sounds (at bases/B) Cardiovascular: regular rate and rhythm Gastrointestinal: non-tender, soft Musculoskeletal: muscle tone (normal) Extremities: edema (none) Neurological: lethargic Results Result Diagram: 10/19/16 0455 10/19/16 0455 Results 24 hrs Laboratory Tests Test 10/18/16 17:02 10/18/16 21:12 10/19/16 02:07 10/19/16 04:55 Bedside Glucose 180 208 115 White Blood Count 8.3 # Red Blood Count 3.39 L Hemoglobin 9.2 L Hematocrit 28.3 L Mean Corpuscular Volume 83.5 Mean Corpuscular Hemoglobin 27.1 L Mean Corpuscular Hemoglobin Concent 32.5 Red Cell Distribution Width 15.5 H Platelet Count 286 Mean Platelet Volume 10.9 H Neutrophils % 62.2 Lymphocytes % 25.4 Monocytes % 7.3 Eosinophils % 3.8 Basophils % 0.7 Nucleated Red Blood Cells % 0.0 Neutrophils # 5.2 Lymphocytes # 2.1 Monocytes # 0.6 Eosinophils # 0.3 Basophils # 0.1 Nucleated Red Blood Cells # 0.0 Sodium Level 134 L Potassium Level 4.5 Chloride Level 98 Carbon Dioxide Level 21 Anion Gap 20 H Blood Urea Nitrogen 76 H Creatinine 8.03 H Glucose Level 71 # Calcium Level 8.8 Phosphorus Level 4.1 Magnesium Level 2.4 Test 10/19/16 08:12 Bedside Glucose 108 Medications Medications Current Medications Acetaminophen/ Hydrocodone Bitart ([place] (5/325)) 1 tab Q6H PRN PO MODERATE PAIN LEVEL 4-6; Start 10/05/16 at 21:30 Morphine Sulfate (morphine) 2 mg Q4H PRN IV SEVERE PAIN LEVEL 7-10; Start 10/05 at 21:30 Docusate Sodium (Colace) 100 mg Q12H PRN PO CONSTIPATION; Start 10/05/16 at 21: 30 Magnesium Hydroxide (Milk Of Mag) 30 ml DAILY PRN PO CONSTIPATION; Start at 21:30 Sodium Biphosphate/ Sodium Phosphate (Fleet Enema) 133 ml DAILY PRN [place] CONSTIPATION; Start 10/05/16 at 21:30 Famotidine (Pepcid) 20 mg DAILY PO Last administered on 10/19/16 09:46; Admin Dose 20 MG; Start 10/06/16 at 09:00 Lorazepam (Ativan) 0.5 mg Q6H PRN IV ANXIETY Last administered on 10/13/16 21: 38; Admin Dose 0.5 MG; Start 10/05/16 at 21:30 Hydralazine HCl (Apresoline) 10 mg Q6H PRN IV ELEVATED SYSTOLIC BP Last administered on 10/18/16 23:48; Admin Dose 10 MG; Start 10/05/16 at 21:30 Clonidine (Catapres) 0.1 mg Q6H PRN PO ELEVATED SYSTOLIC BP; Start 10/05/16 at 21:30 Nitroglycerin (Nitroglycerin (Sl Tab) 0.4 Mg) 1 tab Q5M PRN SL ANGINA; Start at 21:30 Aspirin 325 mg 325 mg DAILY PO Last administered on 10/19/16 09:46; Admin Dose 325 MG; Start 10/06/16 at 09:00 Diltiazem HCl (Cardizem-D5W 125 Mg/125 ml Drip) 125 ml @ 5 mls/hr TITRATE IV ; Start 10/05/16 at 22:00 Diagnostic Test (Pha) (Accucheck) 1 ea 02 XX Last administered on 10/19/16 02: 00; Admin Dose 1 EA; Start 10/07/16 at 02:00 Zolpidem Tartrate (Ambien) 5 mg HS PRN PO INSOMNIA Last administered on 20:39; Admin Dose 5 MG; Start 10/06/16 at 01:00 Miscellaneous Information 1 ea NOTE XX ; Start 10/06/16 at 01:00 Glucose (Glutose) 15 gm Q15M PRN PO DECREASED GLUCOSE; Start 10/06/16 at 01:00 Glucose (Glutose) 22.5 gm Q15M PRN PO DECREASED GLUCOSE; Start 10/06/16 at 01: 00 Dextrose (D50w Syringe) 25 ml Q15M PRN IV DECREASED GLUCOSE; Start 10/06/16 at 01:00 Dextrose (D50w Syringe) 50 ml Q15M PRN IV DECREASED GLUCOSE; Start 10/06/16 at 01:00 Glucagon (Glucagen) 1 mg Q15M PRN IM DECREASED GLUCOSE; Start 10/06/16 at 01:00 Glucose (Glutose) 15 gm Q15M PRN BUCCAL DECREASED GLUCOSE; Start 10/06/16 at 01 :00 Cyanocobalamin (Vitamin B12) 1,000 mcg DAILY PO Last administered on 10/19/16 09:47; Admin Dose 1,000 MCG; Start 10/06/16 at 09:00 Folic Acid (Folic Acid) 0.8 mg DAILY PO Last administered on 10/19/16 09:46; Admin Dose 0.8 MG; Start 10/06/16 at 09:00 Triamcinolone Acetonide (Kenalog 0.1% Oint) 1 applic BID TOP Last administered on 10/19/16 09:45; Admin Dose 1 APPLIC; Start 10/06/16 at 09:00 Ferrous Sulfate (Slow Fe) 142 mg DAILY PO Last administered on 10/19/16 15:06 ; Admin Dose 142 MG; Start 10/07/16 at 09:00 Magnesium Oxide (Mag-Ox 400) 400 mg DAILY PO Last administered on 10/19/16 09: 46; Admin Dose 400 MG; Start 10/06/16 at 13:00 Clopidogrel Bisulfate (plaVIX) 75 mg DAILY PO Last administered on 10/19/16 09 :46; Admin Dose 75 MG; Start 10/06/16 at 12:00 Atorvastatin Calcium (Lipitor) 40 mg QHS PO Last administered on 10/18/16 21: 15; Admin Dose 40 MG; Start 10/06/16 at 21:00 Zolpidem Tartrate (Ambien) 10 mg QHS PRN PO INSOMNIA Last administered on 21:42; Admin Dose 10 MG; Start 10/06/16 at 16:30 Lorazepam (Ativan) 1 mg HS PO Last administered on 10/18/16 21:15; Admin Dose 1 MG; Start 10/07/16 at 21:00 Insulin Glargine (Lantus) 10 unit HS SC Last administered on 10/18/16 21:32; Admin Dose 10 UNIT; Start 10/07/16 at 21:00 Linagliptin (Tradjenta) 5 mg DAILY PO Last administered on 10/19/16 09:46; Admin Dose 5 MG; Start 10/07/16 at 17:00 Metoprolol Succinate (Toprol Xl) 25 mg BID PO Last administered on 10/19/16 09 :46; Admin Dose 25 MG; Start 10/07/16 at 21:00 Heparin Sodium (Porcine) (Heparin (5000 Units/0.5 ml)) 5,000 unit BID SC Last administered on 10/19/16 09:48; Admin Dose 5,000 UNIT; Start 10/10/16 at 12:00 Nifedipine 60 mg 60 mg QHS PO Last administered on 10/18/16 21:16; Admin Dose 60 MG; Start 10/10/16 at 21:00 Piperacillin Sod/ Tazobactam Sod (Zosyn 2.25gm/ 50ml (Pmx)) 50 ml @ 100 mls/hr Q8 IVPB Last administered on 10/19/16 15:06; Admin Dose 100 MLS/HR; Start at 11:00 Acetaminophen (Tylenol Tab) 650 mg Q4H PRN PO NON-CARDIAC PAIN LEVEL (1-3) Last administered on 10/18/16 11:45; Admin Dose 650 MG; Start 10/13/16 at 11:00 Morphine Sulfate (morphine) 2 mg Q2H PRN IV FOR NON CARDIAC PAIN (4-10); Start 10/13/16 at 11:00 Al Hydrox/Mg Hydrox/Simethicone (Mag-Al Plus) 30 ml Q4H PRN PO GASTROINTESTINAL UPSET; Start 10/13/16 at 11:00 Ondansetron HCl (Zofran Inj) 4 mg Q4H PRN IV NAUSEA AND/OR VOMITING; Start at 11:00 Lidocaine (Xylocaine 1% (Mpf)) 30 ml ONCE PRN INJ ANESTHESIA; Start 10/15/16 at 14:30 Benazepril HCl (Lotensin) 40 mg BID PO Last administered on 10/19/16 09:47; Admin Dose 40 MG; Start 10/15/16 at 21:00 Nifedipine (Procardia Xl) 30 mg AM PO Last administered on 10/19/16 09:47; Admin Dose 30 MG; Start 10/18/16 at 09:00 AIYANA LANG 29, 2017 15:25
[2016-10-19] MEDS: INSULIN GLARGINE [LANtus] 3 ML PEN SC SCH (21:00)
[2016-10-19] MEDS: LORAZEPAM 0.5 MG TAB PO SCH (22:21)
[2016-10-19] MEDS: ATORVASTATIN 40 MG TAB PO SCH (22:21)
[2016-10-19] MEDS: NIFEdipine (XL) 60 MG TAB PO SCH (22:22)
[2016-10-19] MEDS: ZOLPIDEM 5 MG TAB PO PRN (22:26)
[2016-10-20] VITALS (11 sets, daily range): BP systolic 135–180; BP diastolic 69–102; PULSE 70–88; RESP 18–19
[2016-10-20] MEDS: EPOETIN 10000 UNITS/1 ML INJ (ESRD) SC SCH (02:01)
[2016-10-20] MEDS: ACCU-CHEK XX SCH (02:02)
[2016-10-20] MEDS: PIPER-TAZO 2.25 GM (PMX) 50 ML IVPB SCH ×3 (05:35→22:09)
[2016-10-20 06:05] LABS: ADD SCAN DIFF NO
[2016-10-20 06:09] LABS: BASOPHIL # 0.1 10^3/ul (0.0-0.1); BASOPHILS % 0.9 % (0.0-2.0); EOSINOPHILS # 0.2 10^3/ul (0.0-0.5); EOSINOPHILS % 3.3 % (0.0-7.0); HEMATOCRIT 28.7 % (42.0-52.0); HEMOGLOBIN 8.9 g/dl (14.0-18.0); LYMPHOCYTES # 1.8 10^3/ul (0.8-2.9); LYMPHOCYTES % 26.3 % (15.0-51.0); MEAN CORPUSCULAR HEMOGLOBIN 26.7 pg (29.0-33.0); MEAN CORPUSCULAR VOLUME 86.2 fl (82.0-101.0); MEAN PLATELET VOLUME 10.9 fl (7.4-10.4); MONOCYTE # 0.4 10^3/ul (0.3-0.9); MONOCYTES % 6.3 % (0.0-11.0); NEUTROPHIL # 4.4 10^3/ul (1.6-7.5); NEUTROPHILS % 62.6 % (39.0-77.0); PLATELET COUNT 292 10^3/UL (140-415); RED BLOOD COUNT 3.33 10^6/ul (4.70-6.10); RED CELL DISTRIBUTION WIDTH 15.8 % (11.5-14.5)
[2016-10-20 06:41] LABS: CREATININE 6.03 mg/dl (0.61-1.24)
[2016-10-20 06:43] LABS: CALCIUM 8.3 mg/dl (8.4-10.2); MAGNESIUM 2.2 mg/dl (1.7-2.5); PHOSPHORUS 3.3 mg/dl (2.5-4.9)
[2016-10-20] MEDS: INSULIN ASPART [NOVOLOG] 3 ML PEN SC SCH ×4 (08:00→20:51)
[2016-10-20] MEDS: LINAGLIPTIN 5 MG TABLET PO SCH (08:50)
[2016-10-20] MEDS: FERROUS SULFATE (SR) 142 MG TAB PO SCH (08:50)
[2016-10-20] MEDS: CYANOCOBALAMIN 500 MCG TAB PO SCH (08:50)
[2016-10-20] MEDS: ASPIRIN (EC) 325 MG TAB PO SCH (08:50)
[2016-10-20] MEDS: METOPROLOL (XL) 25 MG TAB PO SCH (08:50)
[2016-10-20] MEDS: MAGNESIUM OXIDE 400 MG TAB PO SCH (08:50)
[2016-10-20] MEDS: BENAZEPRIL 40 MG TAB PO SCH ×2 (08:50→20:45)
[2016-10-20] MEDS: FOLIC ACID 0.4 MG TAB PO SCH (08:50)
[2016-10-20] MEDS: CLOPIDOGREL 75 MG TAB PO SCH (08:51)
[2016-10-20] MEDS: NIFEdipine (XL) 60 MG TAB PO SCH ×2 (08:51→20:44)
[2016-10-20] MEDS: FAMOTIDINE 20 MG TAB PO SCH (08:51)
[2016-10-20] MEDS: TRIAMCINOLONE ACET 0.1% 15 GM OINT TOP SCH ×2 (08:51→20:51)
[2016-10-20] MEDS: HEPARIN 5,000 UNIT/0.5 ML SYG SC SCH ×2 (08:52→20:49)
--- NOTE | 2016-10-20 09:13 | PN ---
DATE: 10/20/2016 SUBJECTIVE: The patient had a Calvin catheter placed yesterday, had hemodialysis, and tolerated it well. Anticipate dialysis again today. No other acute events noted. No hemoptysis, hematemesis o r hematochezia. OBJECTIVE: VITAL SIGNS: Blood pressure 176/86, respirations 19, pulse 80, temperature 98.0. HEENT: Head is normocephalic. NECK: Supple. HEART: Regular rate. LUNGS: Showed diminished breath sounds at the base. ABDOMEN: Soft, nontender to palpation. No rebound or guarding. EXTREMITIES: Negative for clubbing or cyanosis. No edema. DERMATOLOGIC: No rashes. MUSCULOSKELETAL: Have no joint effusion. NEUROLOGIC: No change in exam. MEDICATIONS: The patient's medication have been reviewed. LABORATORY DATA: Shows sodium 134, potassium 4.0, BUN 52, creatinine 6.03. White count 7.0, hemogl obin , hematocrit 28.7, platelet count is 292. The patient's repeat blood cultures have been n egative to date. ASSESSMENT AND PLAN: 1. End-stage renal disease. The patient had hemodialysis yesterday. Anticipate dialysis again tod ay. Will continue daily dialysis for solute clearance and volume removal. 2. Access. The patient has a Calvin catheter. Anticipate PermCath placement once repeat cultures have been negative. 3. Sepsis secondary to line infection. The patient's PermCath was removed. Continue the current a ntibiotic therapy. 4. Cardiomyopathy and coronary artery disease. Continue the current medical management. 5. Anemia of chronic disease. Continue to monitor hemoglobin and hematocrit levels. Continue Epog en. 6. Atrial fibrillation. Rate controlled. Continue the current medical management. 7. Diabetes. Continue Accu-Cheks and insulin sliding scale. 7. Hypertension. Continue the current blood pressure regimen. Continue ultrafiltration dialysis. 8. Status post respiratory failure. Dictated By: NOEMI BOTELLO/CHANTALE Conf#: [id number] DID#: [id number]
--- NOTE | 2016-10-20 16:09 | CONS ---
Date/Time of Note Date/Time of Note DATE: 10/20/16 TIME: 16:08 Assessment/Plan Assessment/Plan Chief Complaint/Hosp Course SUBJECTIVE: No acute events, no fevers, feels good MICROBIOLOGY: Blood cultures on 10/05/2016 grew gram-negative rods. Repeat blood culture on 10/09/2016 is also growing gram-negative rods. Culture on also growing gram-negative rods. ANTIMICROBIALS: Zosyn. Indwelling: R fem Calvin 10/19/16 PHYSICAL EXAMINATION: GENERAL: This is well-developed, elderly man, who is alert, in no distress. HEENT: Head atraumatic, normocephalic. Sclerae anicteric. Buccal mucosa pink. NECK: Supple, trachea midline. CHEST: Chest rise is symmetrical. Breath sounds clear. HEART: S1, S2. ABDOMEN: Soft, bowel tones present. EXTREMITIES: Without cyanosis. ASSESSMENT: 1. Bacteremia, likely secondary to infected PermCath==> s/p dc'd. 2. Anemia. 3. Atrial fibrillation. 4. Diabetes. 5. Pneumonia. PLAN: Remains stable, repeat bld cx negative, continue Zosyn, HD per renal, ok for permacath placement DW staff/pt Problems: Consultation Date/Type/Reason Admit Date/Time Oct 05, 2016 at 21:04 Type of Consultation: id Referring Provider: JANAE ELDRIDGE Exam/Review of Systems Vital Signs Vitals Vital Signs Date Time Temp Pulse Resp B/P Pulse Ox O2 Delivery O2 Flow Rate FiO2 10/20/16 08:05 98.0 80 19 176/86 99 10/19/16 13:45 Room Air 10/19/16 10:55 21 Intake and Output 10/19/16 10/19/16 10/20/16 15:00 23:00 07:00 Intake Total 1500 ml 450 ml Output Total 2500 ml Balance -1000 ml 450 ml Results Result Diagram: 10/20/16 0525 10/20/16 0525 Results 24 hrs Laboratory Tests Test 10/19/16 16:48 10/19/16 22:20 10/20/16 01:57 10/20/16 05:25 Bedside Glucose 177 187 172 White Blood Count 7.0 Red Blood Count 3.33 L Hemoglobin 8.9 L Hematocrit 28.7 L Mean Corpuscular Volume 86.2 Mean Corpuscular Hemoglobin 26.7 L Mean Corpuscular Hemoglobin Concent 31.0 L Red Cell Distribution Width 15.8 H Platelet Count 292 Mean Platelet Volume 10.9 H Neutrophils % 62.6 Lymphocytes % 26.3 Monocytes % 6.3 Eosinophils % 3.3 Basophils % 0.9 Nucleated Red Blood Cells % 0.0 Neutrophils # 4.4 Lymphocytes # 1.8 Monocytes # 0.4 Eosinophils # 0.2 Basophils # 0.1 Nucleated Red Blood Cells # 0.0 Sodium Level 134 L Potassium Level 4.0 Chloride Level 98 Carbon Dioxide Level 25 Anion Gap 15 Blood Urea Nitrogen 52 H Creatinine 6.03 #H Glucose Level 161 Calcium Level 8.3 L Phosphorus Level 3.3 Magnesium Level 2.2 Test 10/20/16 07:53 10/20/16 11:48 Bedside Glucose 161 255 H Medications Medications Current Medications Acetaminophen/ Hydrocodone Bitart ([place] (5/325)) 1 tab Q6H PRN PO MODERATE PAIN LEVEL 4-6; Start 10/05/16 at 21:30 Morphine Sulfate (morphine) 2 mg Q4H PRN IV SEVERE PAIN LEVEL 7-10; Start 10/05 at 21:30 Docusate Sodium (Colace) 100 mg Q12H PRN PO CONSTIPATION; Start 10/05/16 at 21: 30 Magnesium Hydroxide (Milk Of Mag) 30 ml DAILY PRN PO CONSTIPATION; Start at 21:30 Sodium Biphosphate/ Sodium Phosphate (Fleet Enema) 133 ml DAILY PRN [place] CONSTIPATION; Start 10/05/16 at 21:30 Famotidine (Pepcid) 20 mg DAILY PO Last administered on 10/20/16 08:51; Admin Dose 20 MG; Start 10/06/16 at 09:00 Lorazepam (Ativan) 0.5 mg Q6H PRN IV ANXIETY Last administered on 10/13/16 21: 38; Admin Dose 0.5 MG; Start 10/05/16 at 21:30 Hydralazine HCl (Apresoline) 10 mg Q6H PRN IV ELEVATED SYSTOLIC BP Last administered on 10/18/16 23:48; Admin Dose 10 MG; Start 10/05/16 at 21:30 Clonidine (Catapres) 0.1 mg Q6H PRN PO ELEVATED SYSTOLIC BP; Start 10/05/16 at 21:30 Nitroglycerin (Nitroglycerin (Sl Tab) 0.4 Mg) 1 tab Q5M PRN SL ANGINA; Start at 21:30 Aspirin 325 mg 325 mg DAILY PO Last administered on 10/20/16 08:50; Admin Dose 325 MG; Start 10/06/16 at 09:00 Diltiazem HCl (Cardizem-D5W 125 Mg/125 ml Drip) 125 ml @ 5 mls/hr TITRATE IV ; Start 10/05/16 at 22:00 Diagnostic Test (Pha) (Accucheck) 1 ea 02 XX Last administered on 10/20/16 02: 02; Admin Dose 1 EA; Start 10/07/16 at 02:00 Zolpidem Tartrate (Ambien) 5 mg HS PRN PO INSOMNIA Last administered on 20:39; Admin Dose 5 MG; Start 10/06/16 at 01:00 Miscellaneous Information 1 ea NOTE XX ; Start 10/06/16 at 01:00 Glucose (Glutose) 15 gm Q15M PRN PO DECREASED GLUCOSE; Start 10/06/16 at 01:00 Glucose (Glutose) 22.5 gm Q15M PRN PO DECREASED GLUCOSE; Start 10/06/16 at 01: 00 Dextrose (D50w Syringe) 25 ml Q15M PRN IV DECREASED GLUCOSE; Start 10/06/16 at 01:00 Dextrose (D50w Syringe) 50 ml Q15M PRN IV DECREASED GLUCOSE; Start 10/06/16 at 01:00 Glucagon (Glucagen) 1 mg Q15M PRN IM DECREASED GLUCOSE; Start 10/06/16 at 01:00 Glucose (Glutose) 15 gm Q15M PRN BUCCAL DECREASED GLUCOSE; Start 10/06/16 at 01 :00 Cyanocobalamin (Vitamin B12) 1,000 mcg DAILY PO Last administered on 10/20/16 08:50; Admin Dose 1,000 MCG; Start 10/06/16 at 09:00 Folic Acid (Folic Acid) 0.8 mg DAILY PO Last administered on 10/20/16 08:50; Admin Dose 0.8 MG; Start 10/06/16 at 09:00 Triamcinolone Acetonide (Kenalog 0.1% Oint) 1 applic BID TOP Last administered on 10/20/16 08:51; Admin Dose 1 APPLIC; Start 10/06/16 at 09:00 Ferrous Sulfate (Slow Fe) 142 mg DAILY PO Last administered on 10/20/16 08:50 ; Admin Dose 142 MG; Start 10/07/16 at 09:00 Magnesium Oxide (Mag-Ox 400) 400 mg DAILY PO Last administered on 10/20/16 08: 50; Admin Dose 400 MG; Start 10/06/16 at 13:00 Clopidogrel Bisulfate (plaVIX) 75 mg DAILY PO Last administered on 10/20/16 08 :51; Admin Dose 75 MG; Start 10/06/16 at 12:00 Atorvastatin Calcium (Lipitor) 40 mg QHS PO Last administered on 10/19/16 22: 21; Admin Dose 40 MG; Start 10/06/16 at 21:00 Zolpidem Tartrate (Ambien) 10 mg QHS PRN PO INSOMNIA Last administered on 22:26; Admin Dose 10 MG; Start 10/06/16 at 16:30 Lorazepam (Ativan) 1 mg HS PO Last administered on 10/19/16 22:21; Admin Dose 1 MG; Start 10/07/16 at 21:00 Insulin Glargine (Lantus) 10 unit HS SC Last administered on 10/18/16 21:32; Admin Dose 10 UNIT; Start 10/07/16 at 21:00 Linagliptin (Tradjenta) 5 mg DAILY PO Last administered on 10/20/16 08:50; Admin Dose 5 MG; Start 10/07/16 at 17:00 Metoprolol Succinate (Toprol Xl) 25 mg BID PO Last administered on 10/20/16 08 :50; Admin Dose 25 MG; Start 10/07/16 at 21:00 Heparin Sodium (Porcine) (Heparin (5000 Units/0.5 ml)) 5,000 unit BID SC Last administered on 10/20/16 08:52; Admin Dose 5,000 UNIT; Start 10/10/16 at 12:00 Nifedipine 60 mg 60 mg QHS PO Last administered on 10/19/16 22:22; Admin Dose 60 MG; Start 10/10/16 at 21:00 Piperacillin Sod/ Tazobactam Sod (Zosyn 2.25gm/ 50ml (Pmx)) 50 ml @ 100 mls/hr Q8 IVPB Last administered on 10/20/16 16:03; Admin Dose 100 MLS/HR; Start at 11:00 Acetaminophen (Tylenol Tab) 650 mg Q4H PRN PO NON-CARDIAC PAIN LEVEL (1-3) Last administered on 10/18/16 11:45; Admin Dose 650 MG; Start 10/13/16 at 11:00 Morphine Sulfate (morphine) 2 mg Q2H PRN IV FOR NON CARDIAC PAIN (4-10); Start 10/13/16 at 11:00 Al Hydrox/Mg Hydrox/Simethicone (Mag-Al Plus) 30 ml Q4H PRN PO GASTROINTESTINAL UPSET; Start 10/13/16 at 11:00 Ondansetron HCl (Zofran Inj) 4 mg Q4H PRN IV NAUSEA AND/OR VOMITING; Start at 11:00 Lidocaine (Xylocaine 1% (Mpf)) 30 ml ONCE PRN INJ ANESTHESIA; Start 10/15/16 at 14:30 Benazepril HCl (Lotensin) 40 mg BID PO Last administered on 10/20/16 08:50; Admin Dose 40 MG; Start 10/15/16 at 21:00 Nifedipine (Procardia Xl) 60 mg AM PO Last administered on 10/20/16 08:51; Admin Dose 60 MG; Start 10/20/16 at 09:00 ALEXA BERRY NP Oct 20, 2016 16:09
--- NOTE | 2016-10-20 18:25 | PN ---
Date/Time of Note Date/Time of Note DATE: 10/20/16 TIME: 18:23 Assessment/Plan VTE Prophylaxis VTE Prophylaxis Intervention: heparin Lines/Catheters IV [facility]from [facility] Urinary Cath still in place: No Assessment/Plan Chief Complaint/Hosp Course 1. Acute respiratory distress secondary to volume overload with underlying end -stage renal disease and congestive heart failure, improved Stable on room air 2. Atrial fibrillation with rapid ventricular response, converted back to sinus now rate controlled 3. NSTEMI type 2 s/p C 10/13/16 with findings: * Moderate obstruction of distal left main but with excellent flow and moderate obstruction of mid LAD with excellent flow. * Widely patent LAD and circumflex stents. * Elevated left heart filling pressures. * No significant aortic stenosis by gradient. 4. End-stage renal disease on hemodialysis Cont dialysis via [facility] 5. History of diabetes mellitus type 2. Hemoglobin 6.3. 6. Anemia of chronic disease. 7. Known coronary artery disease with recent history of PTCA and stent placement at [facility]. 8. Hypertensive urgency, resolved. 9. Acute on chronic systolic congestive heart failure with Ischemic CM and ejection fraction of 25% 10. Probable line sepsis with Gram negative kait bacteremia: RALSTONIA PICKETTII Dialysis line removed, patient on line holiday continue IV antibiotics, placement of new access line Per ID and nephrology, currently getting HD via [place] -Most recent Blood Cx neg after 2 days 11. Mild Chronic dementia with some mild underlying confusion 12. Mild Depression Prophylaxis: Heparin / pepcid Problems: Subjective 24 Hr Interval Summary Constitutional: no complaints Exam/Review of Systems Vital Signs Vitals Vital Signs Date Time Temp Pulse Resp B/P Pulse Ox O2 Delivery O2 Flow Rate FiO2 10/20/16 17:19 71 164/82 10/20/16 08:05 98.0 19 99 10/19/16 13:45 Room Air 10/19/16 10:55 21 Intake and Output 10/19/16 10/19/16 10/20/16 15:00 23:00 07:00 Intake Total 1500 ml 450 ml Output Total 2500 ml Balance -1000 ml 450 ml Exam Constitutional: alert, oriented Respiratory: clear to auscultation Cardiovascular: regular rate and rhythm Gastrointestinal: soft, No distended Musculoskeletal: nl extremities to inspection Results Result Diagram: 10/20/16 0525 10/20/16 0525 Results 24 hrs Laboratory Tests Test 10/19/16 22:20 10/20/16 01:57 10/20/16 05:25 10/20/16 07:53 Bedside Glucose 187 172 161 White Blood Count 7.0 Red Blood Count 3.33 L Hemoglobin 8.9 L Hematocrit 28.7 L Mean Corpuscular Volume 86.2 Mean Corpuscular Hemoglobin 26.7 L Mean Corpuscular Hemoglobin Concent 31.0 L Red Cell Distribution Width 15.8 H Platelet Count 292 Mean Platelet Volume 10.9 H Neutrophils % 62.6 Lymphocytes % 26.3 Monocytes % 6.3 Eosinophils % 3.3 Basophils % 0.9 Nucleated Red Blood Cells % 0.0 Neutrophils # 4.4 Lymphocytes # 1.8 Monocytes # 0.4 Eosinophils # 0.2 Basophils # 0.1 Nucleated Red Blood Cells # 0.0 Sodium Level 134 L Potassium Level 4.0 Chloride Level 98 Carbon Dioxide Level 25 Anion Gap 15 Blood Urea Nitrogen 52 H Creatinine 6.03 #H Glucose Level 161 Calcium Level 8.3 L Phosphorus Level 3.3 Magnesium Level 2.2 Test 10/20/16 11:48 10/20/16 17:12 Bedside Glucose 255 H 175 Medications Medications Current Medications Acetaminophen/ Hydrocodone Bitart ([place] (5/325)) 1 tab Q6H PRN PO MODERATE PAIN LEVEL 4-6; Start 10/05/16 at 21:30 Morphine Sulfate (morphine) 2 mg Q4H PRN IV SEVERE PAIN LEVEL 7-10; Start 10/05 at 21:30 Docusate Sodium (Colace) 100 mg Q12H PRN PO CONSTIPATION; Start 10/05/16 at 21: 30 Magnesium Hydroxide (Milk Of Mag) 30 ml DAILY PRN PO CONSTIPATION; Start at 21:30 Sodium Biphosphate/ Sodium Phosphate (Fleet Enema) 133 ml DAILY PRN [place] CONSTIPATION; Start 10/05/16 at 21:30 Famotidine (Pepcid) 20 mg DAILY PO Last administered on 10/20/16 08:51; Admin Dose 20 MG; Start 10/06/16 at 09:00 Lorazepam (Ativan) 0.5 mg Q6H PRN IV ANXIETY Last administered on 10/13/16 21: 38; Admin Dose 0.5 MG; Start 10/05/16 at 21:30 Hydralazine HCl (Apresoline) 10 mg Q6H PRN IV ELEVATED SYSTOLIC BP Last administered on 10/18/16 23:48; Admin Dose 10 MG; Start 10/05/16 at 21:30 Clonidine (Catapres) 0.1 mg Q6H PRN PO ELEVATED SYSTOLIC BP; Start 10/05/16 at 21:30 Nitroglycerin (Nitroglycerin (Sl Tab) 0.4 Mg) 1 tab Q5M PRN SL ANGINA; Start at 21:30 Aspirin 325 mg 325 mg DAILY PO Last administered on 10/20/16 08:50; Admin Dose 325 MG; Start 10/06/16 at 09:00 Diltiazem HCl (Cardizem-D5W 125 Mg/125 ml Drip) 125 ml @ 5 mls/hr TITRATE IV ; Start 10/05/16 at 22:00 Diagnostic Test (Pha) (Accucheck) 1 ea 02 XX Last administered on 10/20/16 02: 02; Admin Dose 1 EA; Start 10/07/16 at 02:00 Zolpidem Tartrate (Ambien) 5 mg HS PRN PO INSOMNIA Last administered on 20:39; Admin Dose 5 MG; Start 10/06/16 at 01:00 Miscellaneous Information 1 ea NOTE XX ; Start 10/06/16 at 01:00 Glucose (Glutose) 15 gm Q15M PRN PO DECREASED GLUCOSE; Start 10/06/16 at 01:00 Glucose (Glutose) 22.5 gm Q15M PRN PO DECREASED GLUCOSE; Start 10/06/16 at 01: 00 Dextrose (D50w Syringe) 25 ml Q15M PRN IV DECREASED GLUCOSE; Start 10/06/16 at 01:00 Dextrose (D50w Syringe) 50 ml Q15M PRN IV DECREASED GLUCOSE; Start 10/06/16 at 01:00 Glucagon (Glucagen) 1 mg Q15M PRN IM DECREASED GLUCOSE; Start 10/06/16 at 01:00 Glucose (Glutose) 15 gm Q15M PRN BUCCAL DECREASED GLUCOSE; Start 10/06/16 at 01 :00 Cyanocobalamin (Vitamin B12) 1,000 mcg DAILY PO Last administered on 10/20/16 08:50; Admin Dose 1,000 MCG; Start 10/06/16 at 09:00 Folic Acid (Folic Acid) 0.8 mg DAILY PO Last administered on 10/20/16 08:50; Admin Dose 0.8 MG; Start 10/06/16 at 09:00 Triamcinolone Acetonide (Kenalog 0.1% Oint) 1 applic BID TOP Last administered on 10/20/16 08:51; Admin Dose 1 APPLIC; Start 10/06/16 at 09:00 Ferrous Sulfate (Slow Fe) 142 mg DAILY PO Last administered on 10/20/16 08:50 ; Admin Dose 142 MG; Start 10/07/16 at 09:00 Magnesium Oxide (Mag-Ox 400) 400 mg DAILY PO Last administered on 10/20/16 08: 50; Admin Dose 400 MG; Start 10/06/16 at 13:00 Clopidogrel Bisulfate (plaVIX) 75 mg DAILY PO Last administered on 10/20/16 08 :51; Admin Dose 75 MG; Start 10/06/16 at 12:00 Atorvastatin Calcium (Lipitor) 40 mg QHS PO Last administered on 10/19/16 22: 21; Admin Dose 40 MG; Start 10/06/16 at 21:00 Zolpidem Tartrate (Ambien) 10 mg QHS PRN PO INSOMNIA Last administered on 22:26; Admin Dose 10 MG; Start 10/06/16 at 16:30 Lorazepam (Ativan) 1 mg HS PO Last administered on 10/19/16 22:21; Admin Dose 1 MG; Start 10/07/16 at 21:00 Insulin Glargine (Lantus) 10 unit HS SC Last administered on 10/18/16 21:32; Admin Dose 10 UNIT; Start 10/07/16 at 21:00 Linagliptin (Tradjenta) 5 mg DAILY PO Last administered on 10/20/16 08:50; Admin Dose 5 MG; Start 10/07/16 at 17:00 Metoprolol Succinate (Toprol Xl) 25 mg BID PO Last administered on 10/20/16 08 :50; Admin Dose 25 MG; Start 10/07/16 at 21:00 Heparin Sodium (Porcine) (Heparin (5000 Units/0.5 ml)) 5,000 unit BID SC Last administered on 10/20/16 08:52; Admin Dose 5,000 UNIT; Start 10/10/16 at 12:00 Nifedipine 60 mg 60 mg QHS PO Last administered on 10/19/16 22:22; Admin Dose 60 MG; Start 10/10/16 at 21:00 Piperacillin Sod/ Tazobactam Sod (Zosyn 2.25gm/ 50ml (Pmx)) 50 ml @ 100 mls/hr Q8 IVPB Last administered on 10/20/16 16:03; Admin Dose 100 MLS/HR; Start at 11:00 Acetaminophen (Tylenol Tab) 650 mg Q4H PRN PO NON-CARDIAC PAIN LEVEL (1-3) Last administered on 10/18/16 11:45; Admin Dose 650 MG; Start 10/13/16 at 11:00 Morphine Sulfate (morphine) 2 mg Q2H PRN IV FOR NON CARDIAC PAIN (4-10); Start 10/13/16 at 11:00 Al Hydrox/Mg Hydrox/Simethicone (Mag-Al Plus) 30 ml Q4H PRN PO GASTROINTESTINAL UPSET; Start 10/13/16 at 11:00 Ondansetron HCl (Zofran Inj) 4 mg Q4H PRN IV NAUSEA AND/OR VOMITING; Start at 11:00 Lidocaine (Xylocaine 1% (Mpf)) 30 ml ONCE PRN INJ ANESTHESIA; Start 10/15/16 at 14:30 Benazepril HCl (Lotensin) 40 mg BID PO Last administered on 10/20/16 08:50; Admin Dose 40 MG; Start 10/15/16 at 21:00 Nifedipine (Procardia Xl) 60 mg AM PO Last administered on 10/20/16 08:51; Admin Dose 60 MG; Start 10/20/16 at 09:00 JANAE ELDRIDGE Oct 20, 2016 18:25
--- NOTE | 2016-10-20 20:20 | CONS ---
Date/Time of Note Date/Time of Note DATE: 10/20/16 TIME: 20:18 Assessment/Plan Assessment/Plan Chief Complaint/Hosp Course IMPRESSION: 1. Atrial fibrillation with rapid ventricular response-now in SR 2. Abnormal electrocardiogram with inferolateral ST depressions. 3. Positive troponin, assess significance. 4. Cardiomyopathy, decreased left ventricular ejection fraction last approximately 45% by outside hospital paperwork at [facility] 09/09. Now approx 25% by echo here 5. History of PTCA and stent placement at [facility] recently.-per notes had PCI at [facility](08/2016)after being thought to be poor surgical candidate but cath report not sent from [facility]. Had originally transferred from [facility] where was cathed and found to have 3VD after suffering MO.-Now s/p LHC today with moderate disease of distal LMN and mid LAD but otherwise patent vessels and stents 6. Renal failure. 7. Hypertension-now uncontrolled 8. Shortness of breath. 9. Generalized weakness. 10. Diabetes mellitus. 11. Anemia-worsening 12.CHF-systolic acute on chronic 14.Bacteremia-GNR persistent-most recent bld cx's now negative Recc: -Tele -Continue JUDY/CCB -Increase BB to improve SBP -Continue asa/plavix/statin -HD for volume removal -SQ heparin -Continue abx's and f/u cx data Problems: Consultation Date/Type/Reason Admit Date/Time Oct 05, 2016 at 21:04 Initial Consult Date 10/06/2016 Type of Consultation: Cardiology Reason for Consultation Cardiomyopathy/CHF Referring Provider: JANAE ELDRIDGE Exam/Review of Systems Vital Signs Vitals Vital Signs Date Time Temp Pulse Resp B/P Pulse Ox O2 Delivery O2 Flow Rate FiO2 10/20/16 19:40 78 10/20/16 19:40 16 10/20/16 17:19 164/82 10/20/16 08:05 98.0 99 10/19/16 13:45 Room Air 10/19/16 10:55 21 Intake and Output 10/19/16 10/19/16 10/20/16 15:00 23:00 07:00 Intake Total 1500 ml 450 ml Output Total 2500 ml Balance -1000 ml 450 ml Exam Review of Systems: CONSTITUTIONAL: No fevers, chills. PULMONARY: No sob CARDIOVASCULAR: No chest pain/palpitations GASTROINTESTINAL: No nausea/vomiting. GENITOURINARY: No hematuria/dysuria. MUSCULOSKELETAL: No myagias/arthalgias. PSYCHIATRIC: The patient denies depression. NEUROLOGIC: No weakness Constitutional: alert Psych: no complaints Head: normocephalic ENMT: mucosa pink and moist Neck: jvd (9 cm water), supple Cardiovascular: regular rate and rhythm Gastrointestinal: soft Musculoskeletal: muscle tone (normal) Extremities: edema (none) Neurological: other (No focal deficits) Results Result Diagram: 10/20/1652410/20/16524 Results 24 hrs Laboratory Tests Test 10/19/16 22:20 10/20/16 01:57 10/20/16 05:25 10/20/16 07:53 Bedside Glucose 187 172 161 White Blood Count 7.0 Red Blood Count 3.33 L Hemoglobin 8.9 L Hematocrit 28.7 L Mean Corpuscular Volume 86.2 Mean Corpuscular Hemoglobin 26.7 L Mean Corpuscular Hemoglobin Concent 31.0 L Red Cell Distribution Width 15.8 H Platelet Count 292 Mean Platelet Volume 10.9 H Neutrophils % 62.6 Lymphocytes % 26.3 Monocytes % 6.3 Eosinophils % 3.3 Basophils % 0.9 Nucleated Red Blood Cells % 0.0 Neutrophils # 4.4 Lymphocytes # 1.8 Monocytes # 0.4 Eosinophils # 0.2 Basophils # 0.1 Nucleated Red Blood Cells # 0.0 Sodium Level 134 L Potassium Level 4.0 Chloride Level 98 Carbon Dioxide Level 25 Anion Gap 15 Blood Urea Nitrogen 52 H Creatinine 6.03 #H Glucose Level 161 Calcium Level 8.3 L Phosphorus Level 3.3 Magnesium Level 2.2 Test 10/20/16 11:48 10/20/16 17:12 Bedside Glucose 255 H 175 Medications Medications Current Medications Acetaminophen/ Hydrocodone Bitart ([place] (5/325)) 1 tab Q6H PRN PO MODERATE PAIN LEVEL 4-6; Start 10/05/16 at 21:30 Morphine Sulfate (morphine) 2 mg Q4H PRN IV SEVERE PAIN LEVEL 7-10; Start 10/05 at 21:30 Docusate Sodium (Colace) 100 mg Q12H PRN PO CONSTIPATION; Start 10/05/16 at 21: 30 Magnesium Hydroxide (Milk Of Mag) 30 ml DAILY PRN PO CONSTIPATION; Start at 21:30 Sodium Biphosphate/ Sodium Phosphate (Fleet Enema) 133 ml DAILY PRN IN CONSTIPATION; Start 10/05/16 at 21:30 Famotidine (Pepcid) 20 mg DAILY PO Last administered on 10/20/16 08:51; Admin Dose 20 MG; Start 10/06/16 at 09:00 Lorazepam (Ativan) 0.5 mg Q6H PRN IV ANXIETY Last administered on 10/13/16 21: 38; Admin Dose 0.5 MG; Start 10/05/16 at 21:30 Hydralazine HCl (Apresoline) 10 mg Q6H PRN IV ELEVATED SYSTOLIC BP Last administered on 10/18/16 23:48; Admin Dose 10 MG; Start 10/05/16 at 21:30 Clonidine (Catapres) 0.1 mg Q6H PRN PO ELEVATED SYSTOLIC BP; Start 10/05/16 at 21:30 Nitroglycerin (Nitroglycerin (Sl Tab) 0.4 Mg) 1 tab Q5M PRN SL ANGINA; Start at 21:30 Aspirin 325 mg 325 mg DAILY PO Last administered on 10/20/16 08:50; Admin Dose 325 MG; Start 10/06/16 at 09:00 Diltiazem HCl (Cardizem-D5W 125 Mg/125 ml Drip) 125 ml @ 5 mls/hr TITRATE IV ; Start 10/05/16 at 22:00 Diagnostic Test (Pha) (Accucheck) 1 ea 02 XX Last administered on 10/20/16 02: 02; Admin Dose 1 EA; Start 10/07/16 at 02:00 Zolpidem Tartrate (Ambien) 5 mg HS PRN PO INSOMNIA Last administered on 20:39; Admin Dose 5 MG; Start 10/06/16 at 01:00 Miscellaneous Information 1 ea NOTE XX ; Start 10/06/16 at 01:00 Glucose (Glutose) 15 gm Q15M PRN PO DECREASED GLUCOSE; Start 10/06/16 at 01:00 Glucose (Glutose) 22.5 gm Q15M PRN PO DECREASED GLUCOSE; Start 10/06/16 at 01: 00 Dextrose (D50w Syringe) 25 ml Q15M PRN IV DECREASED GLUCOSE; Start 10/06/16 at 01:00 Dextrose (D50w Syringe) 50 ml Q15M PRN IV DECREASED GLUCOSE; Start 10/06/16 at 01:00 Glucagon (Glucagen) 1 mg Q15M PRN IM DECREASED GLUCOSE; Start 10/06/16 at 01:00 Glucose (Glutose) 15 gm Q15M PRN BUCCAL DECREASED GLUCOSE; Start 10/06/16 at 01 :00 Cyanocobalamin (Vitamin B12) 1,000 mcg DAILY PO Last administered on 10/20/16 08:50; Admin Dose 1,000 MCG; Start 10/06/16 at 09:00 Folic Acid (Folic Acid) 0.8 mg DAILY PO Last administered on 10/20/16 08:50; Admin Dose 0.8 MG; Start 10/06/16 at 09:00 Triamcinolone Acetonide (Kenalog 0.1% Oint) 1 applic BID TOP Last administered on 10/20/16 08:51; Admin Dose 1 APPLIC; Start 10/06/16 at 09:00 Ferrous Sulfate (Slow Fe) 142 mg DAILY PO Last administered on 10/20/16 08:50 ; Admin Dose 142 MG; Start 10/07/16 at 09:00 Magnesium Oxide (Mag-Ox 400) 400 mg DAILY PO Last administered on 10/20/16 08: 50; Admin Dose 400 MG; Start 10/06/16 at 13:00 Clopidogrel Bisulfate (plaVIX) 75 mg DAILY PO Last administered on 10/20/16 08 :51; Admin Dose 75 MG; Start 10/06/16 at 12:00 Atorvastatin Calcium (Lipitor) 40 mg QHS PO Last administered on 10/19/16 22: 21; Admin Dose 40 MG; Start 10/06/16 at 21:00 Zolpidem Tartrate (Ambien) 10 mg QHS PRN PO INSOMNIA Last administered on 22:26; Admin Dose 10 MG; Start 10/06/16 at 16:30 Lorazepam (Ativan) 1 mg HS PO Last administered on 10/19/16 22:21; Admin Dose 1 MG; Start 10/07/16 at 21:00 Insulin Glargine (Lantus) 10 unit HS SC Last administered on 10/18/16 21:32; Admin Dose 10 UNIT; Start 10/07/16 at 21:00 Linagliptin (Tradjenta) 5 mg DAILY PO Last administered on 10/20/16 08:50; Admin Dose 5 MG; Start 10/07/16 at 17:00 Metoprolol Succinate (Toprol Xl) 25 mg BID PO Last administered on 10/20/16 08 :50; Admin Dose 25 MG; Start 10/07/16 at 21:00 Heparin Sodium (Porcine) (Heparin (5000 Units/0.5 ml)) 5,000 unit BID SC Last administered on 10/20/16 08:52; Admin Dose 5,000 UNIT; Start 10/10/16 at 12:00 Nifedipine 60 mg 60 mg QHS PO Last administered on 10/19/16 22:22; Admin Dose 60 MG; Start 10/10/16 at 21:00 Piperacillin Sod/ Tazobactam Sod (Zosyn 2.25gm/ 50ml (Pmx)) 50 ml @ 100 mls/hr Q8 IVPB Last administered on 10/20/16 16:03; Admin Dose 100 MLS/HR; Start at 11:00 Acetaminophen (Tylenol Tab) 650 mg Q4H PRN PO NON-CARDIAC PAIN LEVEL (1-3) Last administered on 10/18/16 11:45; Admin Dose 650 MG; Start 10/13/16 at 11:00 Morphine Sulfate (morphine) 2 mg Q2H PRN IV FOR NON CARDIAC PAIN (4-10); Start 10/13/16 at 11:00 Al Hydrox/Mg Hydrox/Simethicone (Mag-Al Plus) 30 ml Q4H PRN PO GASTROINTESTINAL UPSET; Start 10/13/16 at 11:00 Ondansetron HCl (Zofran Inj) 4 mg Q4H PRN IV NAUSEA AND/OR VOMITING; Start at 11:00 Lidocaine (Xylocaine 1% (Mpf)) 30 ml ONCE PRN INJ ANESTHESIA; Start 10/15/16 at 14:30 Benazepril HCl (Lotensin) 40 mg BID PO Last administered on 10/20/16 08:50; Admin Dose 40 MG; Start 10/15/16 at 21:00 Nifedipine (Procardia Xl) 60 mg AM PO Last administered on 10/20/16 08:51; Admin Dose 60 MG; Start 10/20/16 at 09:00 AIYANA LANG Oct 20, 2016 20:20
[2016-10-20] MEDS: ATORVASTATIN 40 MG TAB PO SCH (20:45)
[2016-10-20] MEDS: LORAZEPAM 0.5 MG TAB PO SCH (20:45)
[2016-10-20] MEDS: INSULIN GLARGINE [LANtus] 3 ML PEN SC SCH (21:00)
[2016-10-20] MEDS: ZOLPIDEM 5 MG TAB PO PRN (22:09)
[2016-10-20] MEDS: METOPROLOL (XL) 50 MG TAB PO SCH (22:10)
[2016-10-21] VITALS (11 sets, daily range): BP systolic 132–177; BP diastolic 70–86; PULSE 75–88; RESP 16–19
[2016-10-21] MEDS: ACCU-CHEK XX SCH (01:38)
[2016-10-21] MEDS: PIPER-TAZO 2.25 GM (PMX) 50 ML IVPB SCH ×3 (06:06→21:48)
[2016-10-21] MEDS: INSULIN ASPART [NOVOLOG] 3 ML PEN SC SCH ×4 (07:56→20:44)
[2016-10-21] MEDS: TRIAMCINOLONE ACET 0.1% 15 GM OINT TOP SCH ×3 (09:00→20:49)
[2016-10-21] MEDS: HEPARIN 5,000 UNIT/0.5 ML SYG SC SCH ×2 (09:00→20:47)
[2016-10-21] MEDS: CLOPIDOGREL 75 MG TAB PO SCH (09:32)
[2016-10-21] MEDS: LINAGLIPTIN 5 MG TABLET PO SCH (09:32)
[2016-10-21] MEDS: MAGNESIUM OXIDE 400 MG TAB PO SCH (09:32)
[2016-10-21] MEDS: ACETAMINOPHEN 325 MG TAB PO PRN (09:33)
[2016-10-21] MEDS: CYANOCOBALAMIN 500 MCG TAB PO SCH (09:33)
[2016-10-21] MEDS: FERROUS SULFATE (SR) 142 MG TAB PO SCH (09:33)
[2016-10-21] MEDS: FOLIC ACID 0.4 MG TAB PO SCH (09:33)
[2016-10-21] MEDS: FAMOTIDINE 20 MG TAB PO SCH (09:33)
[2016-10-21] MEDS: ASPIRIN (EC) 325 MG TAB PO SCH (09:33)
[2016-10-21 10:25] LABS: ADD SCAN DIFF NO
[2016-10-21 10:29] LABS: BASOPHIL # 0.1 10^3/ul (0.0-0.1); BASOPHILS % 1.1 % (0.0-2.0); EOSINOPHILS # 0.1 10^3/ul (0.0-0.5); EOSINOPHILS % 2.3 % (0.0-7.0); HEMATOCRIT 29.7 % (42.0-52.0); HEMOGLOBIN 9.3 g/dl (14.0-18.0); LYMPHOCYTES # 1.6 10^3/ul (0.8-2.9); LYMPHOCYTES % 28.8 % (15.0-51.0); MEAN CORPUSCULAR HEMOGLOBIN 26.9 pg (29.0-33.0); MEAN CORPUSCULAR HGB CONC 31.3 g/dl (32.0-37.0); MEAN CORPUSCULAR VOLUME 85.8 fl (82.0-101.0); MEAN PLATELET VOLUME 10.6 fl (7.4-10.4); MONOCYTE # 0.4 10^3/ul (0.3-0.9); MONOCYTES % 7.5 % (0.0-11.0); NEUTROPHIL # 3.4 10^3/ul (1.6-7.5); NEUTROPHILS % 59.9 % (39.0-77.0); PLATELET COUNT 266 10^3/UL (140-415); RED BLOOD COUNT 3.46 10^6/ul (4.70-6.10); RED CELL DISTRIBUTION WIDTH 15.9 % (11.5-14.5); WHITE BLOOD COUNT 5.6 10^3/ul (4.8-10.8)
--- NOTE | 2016-10-21 10:48 | PN ---
DATE: 10/21/2016 SUBJECTIVE: The patient is stable, no acute events overnight. The patient had hemodialysis yesterd ay, tolerated it well. The patient is scheduled for dialysis today. No other events noted. OBJECTIVE: VITAL SIGNS: Blood pressure 157/79, respirations 16, pulse 75, temperature 97.5. HEENT: Head is normocephalic. NECK: Supple. HEART: Regular rate. LUNGS: Show diminished breath sounds at the bases. ABDOMEN: Soft, nontender to palpation. No rebound or guarding. EXTREMITIES: Negative for clubbing, cyanosis. No edema. DERMATOLOGIC: No rashes. MUSCULOSKELETAL: No joint effusions. NEUROLOGIC: No change in exam. MEDICATIONS: The patient's medications have been reviewed. LABORATORY DATA: Has been reviewed. No new labs. ASSESSMENT AND PLAN: 1. End-stage renal disease. The patient had hemodialysis yesterday, tolerated it well. Plan for d ialysis today to keep patient on his normal schedule Monday, Monday, Monday. 2. Access. The patient has been cleared for PermCath placement. We will place IR consult for Perm Cath placement. Once placed, Calvin catheter will be removed. 3. Sepsis secondary to line infection. The patient clinically improved. Repeat cultures have been negative. Continue current antibiotic regimen. 4. Cardiomyopathy, coronary artery disease. Continue current treatment plan. 5. Anemia of chronic disease. Continue to monitor hemoglobin and hematocrit levels. Continue Epog en. 6. Atrial fibrillation, rate controlled. Continue current medical management. 7. Diabetes. Continue current insulin regimen. 8. Hypertension. Continue current blood pressure regimen. Continue ultrafiltration dialysis. 9. Status post respiratory failure. Dictated By: NOEMI BOTELLO/CHANTALE Conf#: [id number] DID#: [id number]
[2016-10-21 11:05] LABS: CREATININE 6.22 mg/dl (0.61-1.24)
[2016-10-21 11:06] LABS: CALCIUM 8.7 mg/dl (8.4-10.2)
[2016-10-21] MEDS: BENAZEPRIL 40 MG TAB PO SCH ×2 (12:20→20:48)
[2016-10-21] MEDS: NIFEdipine (XL) 60 MG TAB PO SCH ×2 (12:20→20:48)
[2016-10-21] MEDS: METOPROLOL (XL) 50 MG TAB PO SCH ×2 (12:20→20:48)
--- NOTE | 2016-10-21 13:50 | PN ---
Date/Time of Note Date/Time of Note DATE: 10/21/16 TIME: 13:47 Assessment/Plan VTE Prophylaxis VTE Prophylaxis Intervention: heparin Lines/Catheters IV Catheter Type (from [facility]): nilo cath Urinary Cath still in place: No Assessment/Plan Chief Complaint/Hosp Course 1. Acute respiratory distress secondary to volume overload with underlying end -stage renal disease and congestive heart failure, improved Stable on room air 2. Atrial fibrillation with rapid ventricular response, converted back to sinus now rate controlled 3. NSTEMI type 2 s/p C 10/13/16 with findings: * Moderate obstruction of distal left main but with excellent flow and moderate obstruction of mid LAD with excellent flow. * Widely patent LAD and circumflex stents. * Elevated left heart filling pressures. * No significant aortic stenosis by gradient. 4. End-stage renal disease on hemodialysis Cont dialysis via [facility] 5. History of diabetes mellitus type 2. Hemoglobin 6.3. 6. Anemia of chronic disease. 7. Known coronary artery disease with recent history of PTCA and stent placement at [facility]. 8. Hypertensive urgency, resolved. 9. Acute on chronic systolic congestive heart failure with Ischemic CM and ejection fraction of 25% 10. Probable line sepsis with Gram negative kait bacteremia: RALSTONIA PICKETTII Dialysis line removed, patient on line holiday continue IV antibiotics, placement of new access line on Monday, currently getting HD via [facility] -Most recent Blood Cx neg after 2 days 11. Mild Chronic dementia with some mild underlying confusion 12. Mild Depression Prophylaxis: Heparin / pepcid Problems: Subjective 24 Hr Interval Summary Constitutional: no complaints Exam/Review of Systems Vital Signs Vitals Vital Signs Date Time Temp Pulse Resp B/P Pulse Ox O2 Delivery O2 Flow Rate FiO2 10/21/16 07:40 97.5 75 16 157/79 100 10/19/16 13:45 Room Air 10/19/16 10:55 21 Intake and Output 10/20/16 10/20/16 10/21/16 15:00 23:00 07:00 Intake Total 1320 ml 450 ml Output Total 2500 ml Balance -1180 ml 450 ml Exam Constitutional: alert, oriented Respiratory: clear to auscultation Cardiovascular: regular rate and rhythm Gastrointestinal: soft, No distended Musculoskeletal: nl extremities to inspection Results Result Diagram: 10/21/16 1005 10/21/16 1005 Results 24 hrs Laboratory Tests Test 10/20/16 17:12 10/20/16 20:48 10/21/16 07:53 10/21/16 10:05 Bedside Glucose 175 202 136 White Blood Count 5.6 Red Blood Count 3.46 L Hemoglobin 9.3 L Hematocrit 29.7 L Mean Corpuscular Volume 85.8 Mean Corpuscular Hemoglobin 26.9 L Mean Corpuscular Hemoglobin Concent 31.3 L Red Cell Distribution Width 15.9 H Platelet Count 266 Mean Platelet Volume 10.6 H Neutrophils % 59.9 Lymphocytes % 28.8 Monocytes % 7.5 Eosinophils % 2.3 Basophils % 1.1 Nucleated Red Blood Cells % 0.0 Neutrophils # 3.4 Lymphocytes # 1.6 Monocytes # 0.4 Eosinophils # 0.1 Basophils # 0.1 Nucleated Red Blood Cells # 0.0 Sodium Level 137 Potassium Level 4.0 Chloride Level 99 Carbon Dioxide Level 26 Anion Gap 16 Blood Urea Nitrogen 44 H Creatinine 6.22 H Glucose Level 163 Calcium Level 8.7 Test 10/21/16 11:26 Bedside Glucose 166 Medications Medications Current Medications Acetaminophen/ Hydrocodone Bitart ([place] (5/325)) 1 tab Q6H PRN PO MODERATE PAIN LEVEL 4-6; Start 10/05/16 at 21:30 Morphine Sulfate (morphine) 2 mg Q4H PRN IV SEVERE PAIN LEVEL 7-10; Start 10/05 at 21:30 Docusate Sodium (Colace) 100 mg Q12H PRN PO CONSTIPATION; Start 10/05/16 at 21: 30 Magnesium Hydroxide (Milk Of Mag) 30 ml DAILY PRN PO CONSTIPATION; Start at 21:30 Sodium Biphosphate/ Sodium Phosphate (Fleet Enema) 133 ml DAILY PRN [place] CONSTIPATION; Start 10/05/16 at 21:30 Famotidine (Pepcid) 20 mg DAILY PO Last administered on 10/21/16 09:33; Admin Dose 20 MG; Start 10/06/16 at 09:00 Lorazepam (Ativan) 0.5 mg Q6H PRN IV ANXIETY Last administered on 10/13/16 21: 38; Admin Dose 0.5 MG; Start 10/05/16 at 21:30 Hydralazine HCl (Apresoline) 10 mg Q6H PRN IV ELEVATED SYSTOLIC BP Last administered on 10/18/16 23:48; Admin Dose 10 MG; Start 10/05/16 at 21:30 Clonidine (Catapres) 0.1 mg Q6H PRN PO ELEVATED SYSTOLIC BP; Start 10/05/16 at 21:30 Nitroglycerin (Nitroglycerin (Sl Tab) 0.4 Mg) 1 tab Q5M PRN SL ANGINA; Start at 21:30 Aspirin 325 mg 325 mg DAILY PO Last administered on 10/21/16 09:33; Admin Dose 325 MG; Start 10/06/16 at 09:00 Diltiazem HCl (Cardizem-D5W 125 Mg/125 ml Drip) 125 ml @ 5 mls/hr TITRATE IV ; Start 10/05/16 at 22:00 Diagnostic Test (Pha) (Accucheck) 1 ea 02 XX Last administered on 10/20/16 02: 02; Admin Dose 1 EA; Start 10/07/16 at 02:00 Zolpidem Tartrate (Ambien) 5 mg HS PRN PO INSOMNIA Last administered on 20:39; Admin Dose 5 MG; Start 10/06/16 at 01:00 Miscellaneous Information 1 ea NOTE XX ; Start 10/06/16 at 01:00 Glucose (Glutose) 15 gm Q15M PRN PO DECREASED GLUCOSE; Start 10/06/16 at 01:00 Glucose (Glutose) 22.5 gm Q15M PRN PO DECREASED GLUCOSE; Start 10/06/16 at 01: 00 Dextrose (D50w Syringe) 25 ml Q15M PRN IV DECREASED GLUCOSE; Start 10/06/16 at 01:00 Dextrose (D50w Syringe) 50 ml Q15M PRN IV DECREASED GLUCOSE; Start 10/06/16 at 01:00 Glucagon (Glucagen) 1 mg Q15M PRN IM DECREASED GLUCOSE; Start 10/06/16 at 01:00 Glucose (Glutose) 15 gm Q15M PRN BUCCAL DECREASED GLUCOSE; Start 10/06/16 at 01 :00 Cyanocobalamin (Vitamin B12) 1,000 mcg DAILY PO Last administered on 10/21/16 09:33; Admin Dose 1,000 MCG; Start 10/06/16 at 09:00 Folic Acid (Folic Acid) 0.8 mg DAILY PO Last administered on 10/21/16 09:33; Admin Dose 0.8 MG; Start 10/06/16 at 09:00 Triamcinolone Acetonide (Kenalog 0.1% Oint) 1 applic BID TOP Last administered on 10/20/16 20:51; Admin Dose 1 APPLIC; Start 10/06/16 at 09:00 Ferrous Sulfate (Slow Fe) 142 mg DAILY PO Last administered on 10/21/16 09:33 ; Admin Dose 142 MG; Start 10/07/16 at 09:00 Magnesium Oxide (Mag-Ox 400) 400 mg DAILY PO Last administered on 10/21/16 09: 32; Admin Dose 400 MG; Start 10/06/16 at 13:00 Clopidogrel Bisulfate (plaVIX) 75 mg DAILY PO Last administered on 10/21/16 09 :32; Admin Dose 75 MG; Start 10/06/16 at 12:00 Atorvastatin Calcium (Lipitor) 40 mg QHS PO Last administered on 10/20/16 20: 45; Admin Dose 40 MG; Start 10/06/16 at 21:00 Zolpidem Tartrate (Ambien) 10 mg QHS PRN PO INSOMNIA Last administered on 22:09; Admin Dose 10 MG; Start 10/06/16 at 16:30 Lorazepam (Ativan) 1 mg HS PO Last administered on 10/20/16 20:45; Admin Dose 1 MG; Start 10/07/16 at 21:00 Insulin Glargine (Lantus) 10 unit HS SC Last administered on 10/18/16 21:32; Admin Dose 10 UNIT; Start 10/07/16 at 21:00 Linagliptin (Tradjenta) 5 mg DAILY PO Last administered on 10/21/16 09:32; Admin Dose 5 MG; Start 10/07/16 at 17:00 Heparin Sodium (Porcine) (Heparin (5000 Units/0.5 ml)) 5,000 unit BID SC Last administered on 10/20/16 20:49; Admin Dose 5,000 UNIT; Start 10/10/16 at 12:00 Nifedipine 60 mg 60 mg QHS PO Last administered on 10/20/16 20:44; Admin Dose 60 MG; Start 10/10/16 at 21:00 Piperacillin Sod/ Tazobactam Sod (Zosyn 2.25gm/ 50ml (Pmx)) 50 ml @ 100 mls/hr Q8 IVPB Last administered on 10/21/16 06:06; Admin Dose 100 MLS/HR; Start at 11:00 Acetaminophen (Tylenol Tab) 650 mg Q4H PRN PO NON-CARDIAC PAIN LEVEL (1-3) Last administered on 10/21/16 09:33; Admin Dose 650 MG; Start 10/13/16 at 11:00 Morphine Sulfate (morphine) 2 mg Q2H PRN IV FOR NON CARDIAC PAIN (4-10); Start 10/13/16 at 11:00 Al Hydrox/Mg Hydrox/Simethicone (Mag-Al Plus) 30 ml Q4H PRN PO GASTROINTESTINAL UPSET; Start 10/13/16 at 11:00 Ondansetron HCl (Zofran Inj) 4 mg Q4H PRN IV NAUSEA AND/OR VOMITING; Start at 11:00 Lidocaine (Xylocaine 1% (Mpf)) 30 ml ONCE PRN INJ ANESTHESIA; Start 10/15/16 at 14:30 Benazepril HCl (Lotensin) 40 mg BID PO Last administered on 10/20/16 20:45; Admin Dose 40 MG; Start 10/15/16 at 21:00 Nifedipine (Procardia Xl) 60 mg AM PO Last administered on 10/20/16 08:51; Admin Dose 60 MG; Start 10/20/16 at 09:00 Metoprolol Succinate (Toprol Xl) 50 mg BID PO Last administered on 10/20/16 22 :10; Admin Dose 50 MG; Start 10/20/16 at 21:00 JANAE ELDRIDGE Oct 21, 2016 13:50
--- NOTE | 2016-10-21 16:16 | CONS ---
Date/Time of Note Date/Time of Note DATE: 10/21/16 TIME: 16:15 Assessment/Plan Assessment/Plan Chief Complaint/Hosp Course SUBJECTIVE: No acute events, no fevers, feels good ANTIMICROBIALS: Zosyn. Indwelling: R fem Calvin 10/19/16 PHYSICAL EXAMINATION: GENERAL: This is well-developed, elderly man, who is alert, in no distress. HEENT: Head atraumatic, normocephalic. Sclerae anicteric. Buccal mucosa pink. NECK: Supple, trachea midline. CHEST: Chest rise is symmetrical. Breath sounds clear. HEART: S1, S2. ABDOMEN: Soft, bowel tones present. EXTREMITIES: Without cyanosis. ASSESSMENT: 1. Bacteremia, likely secondary to infected PermCath==> s/p dc'd. 2. Anemia. 3. Atrial fibrillation. 4. Diabetes. 5. Pneumonia. PLAN: Remains stable, repeat bld cx negative, continue Zosyn, HD per renal, ok for permacath placement [facility] staff/pt Problems: Consultation Date/Type/Reason Admit Date/Time Oct 05, 2016 at 21:04 Type of Consultation: id Referring Provider: JANAE ELDRIDGE Exam/Review of Systems Vital Signs Vitals Vital Signs Date Time Temp Pulse Resp B/P Pulse Ox O2 Delivery O2 Flow Rate FiO2 10/21/16 14:47 75 134/76 10/21/16 14:00 18 10/21/16 07:40 97.5 100 10/19/16 13:45 Room Air 10/19/16 10:55 21 Intake and Output 10/20/16 10/20/16 10/21/16 15:00 23:00 07:00 Intake Total 1320 ml 450 ml Output Total 2500 ml Balance -1180 ml 450 ml Results Result Diagram: 10/21/16 1005 10/21/16 1005 Results 24 hrs Laboratory Tests Test 10/20/16 17:12 10/20/16 20:48 10/21/16 07:53 10/21/16 10:05 Bedside Glucose 175 202 136 White Blood Count 5.6 Red Blood Count 3.46 L Hemoglobin 9.3 L Hematocrit 29.7 L Mean Corpuscular Volume 85.8 Mean Corpuscular Hemoglobin 26.9 L Mean Corpuscular Hemoglobin Concent 31.3 L Red Cell Distribution Width 15.9 H Platelet Count 266 Mean Platelet Volume 10.6 H Neutrophils % 59.9 Lymphocytes % 28.8 Monocytes % 7.5 Eosinophils % 2.3 Basophils % 1.1 Nucleated Red Blood Cells % 0.0 Neutrophils # 3.4 Lymphocytes # 1.6 Monocytes # 0.4 Eosinophils # 0.1 Basophils # 0.1 Nucleated Red Blood Cells # 0.0 Sodium Level 137 Potassium Level 4.0 Chloride Level 99 Carbon Dioxide Level 26 Anion Gap 16 Blood Urea Nitrogen 44 H Creatinine 6.22 H Glucose Level 163 Calcium Level 8.7 Test 10/21/16 11:26 Bedside Glucose 166 Medications Medications Current Medications Acetaminophen/ Hydrocodone Bitart ([place] (5/325)) 1 tab Q6H PRN PO MODERATE PAIN LEVEL 4-6; Start 10/05/16 at 21:30 Morphine Sulfate (morphine) 2 mg Q4H PRN IV SEVERE PAIN LEVEL 7-10; Start 10/05 at 21:30 Docusate Sodium (Colace) 100 mg Q12H PRN PO CONSTIPATION; Start 10/05/16 at 21: 30 Magnesium Hydroxide (Milk Of Mag) 30 ml DAILY PRN PO CONSTIPATION; Start at 21:30 Sodium Biphosphate/ Sodium Phosphate (Fleet Enema) 133 ml DAILY PRN [place] CONSTIPATION; Start 10/05/16 at 21:30 Famotidine (Pepcid) 20 mg DAILY PO Last administered on 10/21/16 09:33; Admin Dose 20 MG; Start 10/06/16 at 09:00 Lorazepam (Ativan) 0.5 mg Q6H PRN IV ANXIETY Last administered on 10/13/16 21: 38; Admin Dose 0.5 MG; Start 10/05/16 at 21:30 Hydralazine HCl (Apresoline) 10 mg Q6H PRN IV ELEVATED SYSTOLIC BP Last administered on 10/18/16 23:48; Admin Dose 10 MG; Start 10/05/16 at 21:30 Clonidine (Catapres) 0.1 mg Q6H PRN PO ELEVATED SYSTOLIC BP; Start 10/05/16 at 21:30 Nitroglycerin (Nitroglycerin (Sl Tab) 0.4 Mg) 1 tab Q5M PRN SL ANGINA; Start at 21:30 Aspirin 325 mg 325 mg DAILY PO Last administered on 10/21/16 09:33; Admin Dose 325 MG; Start 10/06/16 at 09:00 Diltiazem HCl (Cardizem-D5W 125 Mg/125 ml Drip) 125 ml @ 5 mls/hr TITRATE IV ; Start 10/05/16 at 22:00 Diagnostic Test (Pha) (Accucheck) 1 ea 02 XX Last administered on 10/20/16 02: 02; Admin Dose 1 EA; Start 10/07/16 at 02:00 Zolpidem Tartrate (Ambien) 5 mg HS PRN PO INSOMNIA Last administered on 20:39; Admin Dose 5 MG; Start 10/06/16 at 01:00 Miscellaneous Information 1 ea NOTE XX ; Start 10/06/16 at 01:00 Glucose (Glutose) 15 gm Q15M PRN PO DECREASED GLUCOSE; Start 10/06/16 at 01:00 Glucose (Glutose) 22.5 gm Q15M PRN PO DECREASED GLUCOSE; Start 10/06/16 at 01: 00 Dextrose (D50w Syringe) 25 ml Q15M PRN IV DECREASED GLUCOSE; Start 10/06/16 at 01:00 Dextrose (D50w Syringe) 50 ml Q15M PRN IV DECREASED GLUCOSE; Start 10/06/16 at 01:00 Glucagon (Glucagen) 1 mg Q15M PRN IM DECREASED GLUCOSE; Start 10/06/16 at 01:00 Glucose (Glutose) 15 gm Q15M PRN BUCCAL DECREASED GLUCOSE; Start 10/06/16 at 01 :00 Cyanocobalamin (Vitamin B12) 1,000 mcg DAILY PO Last administered on 10/21/16 09:33; Admin Dose 1,000 MCG; Start 10/06/16 at 09:00 Folic Acid (Folic Acid) 0.8 mg DAILY PO Last administered on 10/21/16 09:33; Admin Dose 0.8 MG; Start 10/06/16 at 09:00 Triamcinolone Acetonide (Kenalog 0.1% Oint) 1 applic BID TOP Last administered on 10/21/16 14:48; Admin Dose 1 APPLIC; Start 10/06/16 at 09:00 Ferrous Sulfate (Slow Fe) 142 mg DAILY PO Last administered on 10/21/16 09:33 ; Admin Dose 142 MG; Start 10/07/16 at 09:00 Magnesium Oxide (Mag-Ox 400) 400 mg DAILY PO Last administered on 10/21/16 09: 32; Admin Dose 400 MG; Start 10/06/16 at 13:00 Clopidogrel Bisulfate (plaVIX) 75 mg DAILY PO Last administered on 10/21/16 09 :32; Admin Dose 75 MG; Start 10/06/16 at 12:00 Atorvastatin Calcium (Lipitor) 40 mg QHS PO Last administered on 10/20/16 20: 45; Admin Dose 40 MG; Start 10/06/16 at 21:00 Zolpidem Tartrate (Ambien) 10 mg QHS PRN PO INSOMNIA Last administered on 22:09; Admin Dose 10 MG; Start 10/06/16 at 16:30 Lorazepam (Ativan) 1 mg HS PO Last administered on 10/20/16 20:45; Admin Dose 1 MG; Start 10/07/16 at 21:00 Insulin Glargine (Lantus) 10 unit HS SC Last administered on 10/18/16 21:32; Admin Dose 10 UNIT; Start 10/07/16 at 21:00 Linagliptin (Tradjenta) 5 mg DAILY PO Last administered on 10/21/16 09:32; Admin Dose 5 MG; Start 10/07/16 at 17:00 Heparin Sodium (Porcine) (Heparin (5000 Units/0.5 ml)) 5,000 unit BID SC Last administered on 10/20/16 20:49; Admin Dose 5,000 UNIT; Start 10/10/16 at 12:00 Nifedipine 60 mg 60 mg QHS PO Last administered on 10/20/16 20:44; Admin Dose 60 MG; Start 10/10/16 at 21:00 Piperacillin Sod/ Tazobactam Sod (Zosyn 2.25gm/ 50ml (Pmx)) 50 ml @ 100 mls/hr Q8 IVPB Last administered on 10/21/16 14:49; Admin Dose 100 MLS/HR; Start at 11:00 Acetaminophen (Tylenol Tab) 650 mg Q4H PRN PO NON-CARDIAC PAIN LEVEL (1-3) Last administered on 10/21/16 09:33; Admin Dose 650 MG; Start 10/13/16 at 11:00 Morphine Sulfate (morphine) 2 mg Q2H PRN IV FOR NON CARDIAC PAIN (4-10); Start 10/13/16 at 11:00 Al Hydrox/Mg Hydrox/Simethicone (Mag-Al Plus) 30 ml Q4H PRN PO GASTROINTESTINAL UPSET; Start 10/13/16 at 11:00 Ondansetron HCl (Zofran Inj) 4 mg Q4H PRN IV NAUSEA AND/OR VOMITING; Start at 11:00 Lidocaine (Xylocaine 1% (Mpf)) 30 ml ONCE PRN INJ ANESTHESIA; Start 10/15/16 at 14:30 Benazepril HCl (Lotensin) 40 mg BID PO Last administered on 10/20/16 20:45; Admin Dose 40 MG; Start 10/15/16 at 21:00 Nifedipine (Procardia Xl) 60 mg AM PO Last administered on 10/20/16 08:51; Admin Dose 60 MG; Start 10/20/16 at 09:00 Metoprolol Succinate (Toprol Xl) 50 mg BID PO Last administered on 10/20/16 22 :10; Admin Dose 50 MG; Start 10/20/16 at 21:00 ALEXA BERRY NP Oct 21, 2016 16:16
--- NOTE | 2016-10-21 16:52 | CONS ---
Date/Time of Note Date/Time of Note DATE: 10/21/16 TIME: 16:50 Assessment/Plan Assessment/Plan Chief Complaint/Hosp Course IMPRESSION: 1. Atrial fibrillation with rapid ventricular response-now in SR 2. Abnormal electrocardiogram with inferolateral ST depressions. 3. Positive troponin, assess significance. 4. Cardiomyopathy, decreased left ventricular ejection fraction last approximately 45% by outside hospital paperwork at [facility] 09/09. Now approx 25% by echo here 5. History of PTCA and stent placement at [facility] recently.-per notes had PCI at [facility](08/2016)after being thought to be poor surgical candidate but cath report not sent from [facility]. Had originally transferred from [facility] where was cathed and found to have 3VD after suffering FL.-Now s/p LHC today with moderate disease of distal LMN and mid LAD but otherwise patent vessels and stents 6. Renal failure. 7. Hypertension-Currently improved 8. Shortness of breath. 9. Generalized weakness. 10. Diabetes mellitus. 11. Anemia-worsening 12.CHF-systolic acute on chronic 14.Bacteremia-GNR persistent-most recent bld cx's now negative Recc: -Tele -Continue JUDY/CCB/BB -Continue asa/plavix/statin -HD for volume removal -SQ heparin -Continue abx's and f/u cx data Problems: Consultation Date/Type/Reason Admit Date/Time Oct 05, 2016 at 21:04 Initial Consult Date 10/06/2016 Type of Consultation: Cardiology Reason for Consultation AF Referring Provider: JANAE ELDRIDGE Exam/Review of Systems Vital Signs Vitals Vital Signs Date Time Temp Pulse Resp B/P Pulse Ox O2 Delivery O2 Flow Rate FiO2 10/21/16 14:47 75 134/76 10/21/16 14:00 18 10/21/16 07:40 97.5 100 10/19/16 13:45 Room Air 10/19/16 10:55 21 Intake and Output 10/20/16 10/20/16 10/21/16 15:00 23:00 07:00 Intake Total 1320 ml 450 ml Output Total 2500 ml Balance -1180 ml 450 ml Exam Review of Systems: CONSTITUTIONAL: No fevers, chills. PULMONARY: No sob CARDIOVASCULAR: No chest pain/palpitations GASTROINTESTINAL: No nausea/vomiting. GENITOURINARY: No hematuria/dysuria. MUSCULOSKELETAL: No myagias/arthalgias. PSYCHIATRIC: The patient denies depression. NEUROLOGIC: No weakness Constitutional: alert Psych: no complaints Head: normocephalic ENMT: mucosa pink and moist Neck: jvd (9 cm water), supple Respiratory: diminished breath sounds Cardiovascular: regular rate and rhythm Gastrointestinal: non-tender, soft Musculoskeletal: muscle tone Extremities: normal pulses Neurological: lethargic Results Result Diagram: 10/21/16 1005 10/21/16 1005 Results 24 hrs Laboratory Tests Test 10/20/16 17:12 10/20/16 20:48 10/21/16 07:53 10/21/16 10:05 Bedside Glucose 175 202 136 White Blood Count 5.6 Red Blood Count 3.46 L Hemoglobin 9.3 L Hematocrit 29.7 L Mean Corpuscular Volume 85.8 Mean Corpuscular Hemoglobin 26.9 L Mean Corpuscular Hemoglobin Concent 31.3 L Red Cell Distribution Width 15.9 H Platelet Count 266 Mean Platelet Volume 10.6 H Neutrophils % 59.9 Lymphocytes % 28.8 Monocytes % 7.5 Eosinophils % 2.3 Basophils % 1.1 Nucleated Red Blood Cells % 0.0 Neutrophils # 3.4 Lymphocytes # 1.6 Monocytes # 0.4 Eosinophils # 0.1 Basophils # 0.1 Nucleated Red Blood Cells # 0.0 Sodium Level 137 Potassium Level 4.0 Chloride Level 99 Carbon Dioxide Level 26 Anion Gap 16 Blood Urea Nitrogen 44 H Creatinine 6.22 H Glucose Level 163 Calcium Level 8.7 Test 10/21/16 11:26 10/21/16 16:39 Bedside Glucose 166 161 Medications Medications Current Medications Acetaminophen/ Hydrocodone Bitart ([place] (5/325)) 1 tab Q6H PRN PO MODERATE PAIN LEVEL 4-6; Start 10/05/16 at 21:30 Morphine Sulfate (morphine) 2 mg Q4H PRN IV SEVERE PAIN LEVEL 7-10; Start 10/05 at 21:30 Docusate Sodium (Colace) 100 mg Q12H PRN PO CONSTIPATION; Start 10/05/16 at 21: 30 Magnesium Hydroxide (Milk Of Mag) 30 ml DAILY PRN PO CONSTIPATION; Start at 21:30 Sodium Biphosphate/ Sodium Phosphate (Fleet Enema) 133 ml DAILY PRN [place] CONSTIPATION; Start 10/05/16 at 21:30 Famotidine (Pepcid) 20 mg DAILY PO Last administered on 10/21/16 09:33; Admin Dose 20 MG; Start 10/06/16 at 09:00 Lorazepam (Ativan) 0.5 mg Q6H PRN IV ANXIETY Last administered on 10/13/16 21: 38; Admin Dose 0.5 MG; Start 10/05/16 at 21:30 Hydralazine HCl (Apresoline) 10 mg Q6H PRN IV ELEVATED SYSTOLIC BP Last administered on 10/18/16 23:48; Admin Dose 10 MG; Start 10/05/16 at 21:30 Clonidine (Catapres) 0.1 mg Q6H PRN PO ELEVATED SYSTOLIC BP; Start 10/05/16 at 21:30 Nitroglycerin (Nitroglycerin (Sl Tab) 0.4 Mg) 1 tab Q5M PRN SL ANGINA; Start at 21:30 Aspirin 325 mg 325 mg DAILY PO Last administered on 10/21/16 09:33; Admin Dose 325 MG; Start 10/06/16 at 09:00 Diltiazem HCl (Cardizem-D5W 125 Mg/125 ml Drip) 125 ml @ 5 mls/hr TITRATE IV ; Start 10/05/16 at 22:00 Diagnostic Test (Pha) (Accucheck) 1 ea 02 XX Last administered on 10/20/16 02: 02; Admin Dose 1 EA; Start 10/07/16 at 02:00 Zolpidem Tartrate (Ambien) 5 mg HS PRN PO INSOMNIA Last administered on 20:39; Admin Dose 5 MG; Start 10/06/16 at 01:00 Miscellaneous Information 1 ea NOTE XX ; Start 10/06/16 at 01:00 Glucose (Glutose) 15 gm Q15M PRN PO DECREASED GLUCOSE; Start 10/06/16 at 01:00 Glucose (Glutose) 22.5 gm Q15M PRN PO DECREASED GLUCOSE; Start 10/06/16 at 01: 00 Dextrose (D50w Syringe) 25 ml Q15M PRN IV DECREASED GLUCOSE; Start 10/06/16 at 01:00 Dextrose (D50w Syringe) 50 ml Q15M PRN IV DECREASED GLUCOSE; Start 10/06/16 at 01:00 Glucagon (Glucagen) 1 mg Q15M PRN IM DECREASED GLUCOSE; Start 10/06/16 at 01:00 Glucose (Glutose) 15 gm Q15M PRN BUCCAL DECREASED GLUCOSE; Start 10/06/16 at 01 :00 Cyanocobalamin (Vitamin B12) 1,000 mcg DAILY PO Last administered on 10/21/16 09:33; Admin Dose 1,000 MCG; Start 10/06/16 at 09:00 Folic Acid (Folic Acid) 0.8 mg DAILY PO Last administered on 10/21/16 09:33; Admin Dose 0.8 MG; Start 10/06/16 at 09:00 Triamcinolone Acetonide (Kenalog 0.1% Oint) 1 applic BID TOP Last administered on 10/21/16 14:48; Admin Dose 1 APPLIC; Start 10/06/16 at 09:00 Ferrous Sulfate (Slow Fe) 142 mg DAILY PO Last administered on 10/21/16 09:33 ; Admin Dose 142 MG; Start 10/07/16 at 09:00 Magnesium Oxide (Mag-Ox 400) 400 mg DAILY PO Last administered on 10/21/16 09: 32; Admin Dose 400 MG; Start 10/06/16 at 13:00 Clopidogrel Bisulfate (plaVIX) 75 mg DAILY PO Last administered on 10/21/16 09 :32; Admin Dose 75 MG; Start 10/06/16 at 12:00 Atorvastatin Calcium (Lipitor) 40 mg QHS PO Last administered on 10/20/16 20: 45; Admin Dose 40 MG; Start 10/06/16 at 21:00 Zolpidem Tartrate (Ambien) 10 mg QHS PRN PO INSOMNIA Last administered on 22:09; Admin Dose 10 MG; Start 10/06/16 at 16:30 Lorazepam (Ativan) 1 mg HS PO Last administered on 10/20/16 20:45; Admin Dose 1 MG; Start 10/07/16 at 21:00 Insulin Glargine (Lantus) 10 unit HS SC Last administered on 10/18/16 21:32; Admin Dose 10 UNIT; Start 10/07/16 at 21:00 Linagliptin (Tradjenta) 5 mg DAILY PO Last administered on 10/21/16 09:32; Admin Dose 5 MG; Start 10/07/16 at 17:00 Heparin Sodium (Porcine) (Heparin (5000 Units/0.5 ml)) 5,000 unit BID SC Last administered on 10/20/16 20:49; Admin Dose 5,000 UNIT; Start 10/10/16 at 12:00 Nifedipine 60 mg 60 mg QHS PO Last administered on 10/20/16 20:44; Admin Dose 60 MG; Start 10/10/16 at 21:00 Piperacillin Sod/ Tazobactam Sod (Zosyn 2.25gm/ 50ml (Pmx)) 50 ml @ 100 mls/hr Q8 IVPB Last administered on 10/21/16 14:49; Admin Dose 100 MLS/HR; Start at 11:00 Acetaminophen (Tylenol Tab) 650 mg Q4H PRN PO NON-CARDIAC PAIN LEVEL (1-3) Last administered on 10/21/16 09:33; Admin Dose 650 MG; Start 10/13/16 at 11:00 Morphine Sulfate (morphine) 2 mg Q2H PRN IV FOR NON CARDIAC PAIN (4-10); Start 10/13/16 at 11:00 Al Hydrox/Mg Hydrox/Simethicone (Mag-Al Plus) 30 ml Q4H PRN PO GASTROINTESTINAL UPSET; Start 10/13/16 at 11:00 Ondansetron HCl (Zofran Inj) 4 mg Q4H PRN IV NAUSEA AND/OR VOMITING; Start at 11:00 Lidocaine (Xylocaine 1% (Mpf)) 30 ml ONCE PRN INJ ANESTHESIA; Start 10/15/16 at 14:30 Benazepril HCl (Lotensin) 40 mg BID PO Last administered on 10/20/16 20:45; Admin Dose 40 MG; Start 10/15/16 at 21:00 Nifedipine (Procardia Xl) 60 mg AM PO Last administered on 10/20/16 08:51; Admin Dose 60 MG; Start 10/20/16 at 09:00 Metoprolol Succinate (Toprol Xl) 50 mg BID PO Last administered on 10/20/16 22 :10; Admin Dose 50 MG; Start 10/20/16 at 21:00 AIYANA LANG 31, 2017 16:52
[2016-10-21] MEDS: EPOETIN 10000 UNITS/1 ML INJ (ESRD) SC SCH (17:54)
[2016-10-21] MEDS: INSULIN GLARGINE [LANtus] 3 ML PEN SC SCH (20:44)
[2016-10-21] MEDS: LORAZEPAM 0.5 MG TAB PO SCH (20:47)
[2016-10-21] MEDS: ATORVASTATIN 40 MG TAB PO SCH (20:47)
[2016-10-21] MEDS: ZOLPIDEM 5 MG TAB PO PRN (21:47)
[2016-10-22] MEDS: ACCU-CHEK XX SCH (02:00)
[2016-10-22] MEDS: PIPER-TAZO 2.25 GM (PMX) 50 ML IVPB SCH ×3 (06:00→21:44)
[2016-10-22 07:35] VITALS: BP 155/74; RESP 16
[2016-10-22 07:38] LABS: ADD SCAN DIFF NO
[2016-10-22] MEDS: INSULIN ASPART [NOVOLOG] 3 ML PEN SC SCH ×4 (07:44→20:37)
[2016-10-22 07:47] LABS: BASOPHIL # 0.1 10^3/ul (0.0-0.1); BASOPHILS % 0.9 % (0.0-2.0); EOSINOPHILS # 0.2 10^3/ul (0.0-0.5); EOSINOPHILS % 2.3 % (0.0-7.0); HEMATOCRIT 32.3 % (42.0-52.0); HEMOGLOBIN 9.9 g/dl (14.0-18.0); LYMPHOCYTES # 2.1 10^3/ul (0.8-2.9); LYMPHOCYTES % 27.6 % (15.0-51.0); MEAN CORPUSCULAR HEMOGLOBIN 26.7 pg (29.0-33.0); MEAN CORPUSCULAR HGB CONC 30.7 g/dl (32.0-37.0); MEAN CORPUSCULAR VOLUME 87.1 fl (82.0-101.0); MEAN PLATELET VOLUME 11.2 fl (7.4-10.4); MONOCYTE # 0.7 10^3/ul (0.3-0.9); MONOCYTES % 9.3 % (0.0-11.0); NEUTROPHIL # 4.6 10^3/ul (1.6-7.5); NEUTROPHILS % 59.4 % (39.0-77.0); PLATELET COUNT 252 10^3/UL (140-415); RED BLOOD COUNT 3.71 10^6/ul (4.70-6.10); RED CELL DISTRIBUTION WIDTH 16.1 % (11.5-14.5); WHITE BLOOD COUNT 7.7 10^3/ul (4.8-10.8)
[2016-10-22 08:07] LABS: CREATININE 5.19 mg/dl (0.61-1.24)
[2016-10-22 08:08] LABS: CALCIUM 9.1 mg/dl (8.4-10.2); MAGNESIUM 2.3 mg/dl (1.7-2.5); PHOSPHORUS 3.6 mg/dl (2.5-4.9)
[2016-10-22] MEDS: FAMOTIDINE 20 MG TAB PO SCH (09:31)
[2016-10-22] MEDS: FOLIC ACID 0.4 MG TAB PO SCH (09:31)
[2016-10-22] MEDS: HEPARIN 5,000 UNIT/0.5 ML SYG SC SCH ×2 (09:31→20:34)
[2016-10-22] MEDS: MAGNESIUM OXIDE 400 MG TAB PO SCH (09:32)
[2016-10-22] MEDS: NIFEdipine (XL) 60 MG TAB PO SCH ×2 (09:32→20:33)
[2016-10-22] MEDS: BENAZEPRIL 40 MG TAB PO SCH ×2 (09:32→20:32)
[2016-10-22] MEDS: CYANOCOBALAMIN 500 MCG TAB PO SCH (09:32)
[2016-10-22] MEDS: LINAGLIPTIN 5 MG TABLET PO SCH (09:32)
[2016-10-22] MEDS: ASPIRIN (EC) 325 MG TAB PO SCH (09:33)
[2016-10-22] MEDS: TRIAMCINOLONE ACET 0.1% 15 GM OINT TOP SCH ×2 (09:33→20:38)
[2016-10-22] MEDS: METOPROLOL (XL) 50 MG TAB PO SCH ×2 (09:33→20:33)
[2016-10-22] MEDS: CLOPIDOGREL 75 MG TAB PO SCH (09:33)
[2016-10-22] MEDS: FERROUS SULFATE (SR) 142 MG TAB PO SCH (09:33)
--- NOTE | 2016-10-22 10:52 | PN ---
DATE: 10/22/2016 SUBJECTIVE: The patient had hemodialysis yesterday, tolerated well. No other events noted. No fev ers, chills, nausea, vomiting. OBJECTIVE: VITAL SIGNS: Blood pressure 155/74, respirations 16, pulse 73, temperature 97.8. HEENT: Head is normocephalic. NECK: Supple. HEART: Regular rate. LUNGS: Show diminished breath sounds at the base. ABDOMEN: Soft, nontender to palpation without rebound or guarding. EXTREMITIES: Negative for clubbing, cyanosis, no edema. DERMATOLOGIC: No rashes. MUSCULOSKELETAL: No joint effusions. NEUROLOGIC: No change in exam. MEDICATIONS: The patient's medications have been reviewed. LABORATORY DATA: Shows sodium 138, potassium 4.0, BUN 36, creatinine 5.19. White count 7.____, hem atocrit 32.3, platelet count is 252. ASSESSMENT AND PLAN: 1. End-stage renal disease. The patient had hemodialysis yesterday, tolerated well. Anticipate ne xt dialysis on Monday. 2. Access. The patient is pending PermCath placement on Monday. 3. Sepsis secondary to line infection. Patient clinically improved. Perm-A-Cath was removed. Con tinue antibiotic therapy. Repeat cultures have been negative. 4. Cardiomyopathy. Continue current medical management. 5. Anemia of chronic disease. Continue to monitor H and H levels. Continue Epogen. 6. Atrial fibrillation, rate controlled. Continue medical management. 7. Diabetes. Continue Accu-Cheks and sliding scale. 8. Hypertension. Continue current blood pressure regimen. 9. Status post respiratory failure. Dictated By: NOEMI BOTELLO/CHANTALE Conf#: [id number] DID#: [id number]
--- NOTE | 2016-10-22 14:17 | PN ---
Date/Time of Note Date/Time of Note DATE: 10/22/16 TIME: 14:16 Assessment/Plan VTE Prophylaxis VTE Prophylaxis Intervention: heparin Lines/Catheters IV [facility]ter Type [facility]from [facility]o catheter Urinary Cath still in place: No Assessment/Plan Chief Complaint/Hosp Course 1. Acute respiratory distress secondary to volume overload with underlying end -stage renal disease and congestive heart failure, improved Stable on room air 2. Atrial fibrillation with rapid ventricular response, converted back to sinus now rate controlled 3. NSTEMI type 2 s/p C 10/13/16 with findings: * Moderate obstruction of distal left main but with excellent flow and moderate obstruction of mid LAD with excellent flow. * Widely patent LAD and circumflex stents. * Elevated left heart filling pressures. * No significant aortic stenosis by gradient. 4. End-stage renal disease on hemodialysis Cont dialysis via [facility] 5. History of diabetes mellitus type 2. Hemoglobin 6.3. 6. Anemia of chronic disease. 7. Known coronary artery disease with recent history of PTCA and stent placement at [facility]. 8. Hypertensive urgency, resolved. 9. Acute on chronic systolic congestive heart failure with Ischemic CM and ejection fraction of 25% 10. Probable line sepsis with Gram negative kait bacteremia: RALSTONIA PICKETTII Dialysis line removed, patient on line holiday continue IV antibiotics, placement of new access line on Monday, currently getting HD via [facility] -Most recent Blood Cx neg after 2 days 11. Mild Chronic dementia with some mild underlying confusion 12. Mild Depression Prophylaxis: Heparin / pepcid Problems: Subjective 24 Hr Interval Summary Constitutional: no complaints Exam/Review of Systems Vital Signs Vitals Vital Signs Date Time Temp Pulse Resp B/P Pulse Ox O2 Delivery O2 Flow Rate FiO2 10/22/16 07:35 97.8 73 16 155/74 99 10/21/16 16:25 21 10/19/16 13:45 Room Air Intake and Output 10/21/16 10/21/16 10/22/16 15:00 23:00 07:00 Intake Total 500 ml 930 ml 450 ml Output Total 2500 ml Balance -2000 ml 930 ml 450 ml Exam Constitutional: alert, oriented Respiratory: clear to auscultation Cardiovascular: regular rate and rhythm Gastrointestinal: soft, No distended Musculoskeletal: nl extremities to inspection Results Result Diagram: 10/22/16 0540 10/22/16 0540 Results 24 hrs Laboratory Tests Test 3/31/17 16:39 10/21/16 20:43 10/22/16 05:40 10/22/16 07:33 Bedside Glucose 161 191 139 White Blood Count 7.7 # Red Blood Count 3.71 L Hemoglobin 9.9 L Hematocrit 32.3 L Mean Corpuscular Volume 87.1 Mean Corpuscular Hemoglobin 26.7 L Mean Corpuscular Hemoglobin Concent 30.7 L Red Cell Distribution Width 16.1 H Platelet Count 252 Mean Platelet Volume 11.2 H Neutrophils % 59.4 Lymphocytes % 27.6 Monocytes % 9.3 Eosinophils % 2.3 Basophils % 0.9 Nucleated Red Blood Cells % 0.0 Neutrophils # 4.6 Lymphocytes # 2.1 Monocytes # 0.7 Eosinophils # 0.2 Basophils # 0.1 Nucleated Red Blood Cells # 0.0 Sodium Level 138 Potassium Level 4.0 Chloride Level 102 Carbon Dioxide Level 24 Anion Gap 16 Blood Urea Nitrogen 36 H Creatinine 5.19 H Glucose Level 160 Calcium Level 9.1 Phosphorus Level 3.6 Magnesium Level 2.3 Test 10/22/16 11:40 Bedside Glucose 183 Medications Medications Current Medications Acetaminophen/ Hydrocodone Bitart ([place] (5/325)) 1 tab Q6H PRN PO MODERATE PAIN LEVEL 4-6; Start 10/05/16 at 21:30 Morphine Sulfate (morphine) 2 mg Q4H PRN IV SEVERE PAIN LEVEL 7-10; Start 10/05 at 21:30 Docusate Sodium (Colace) 100 mg Q12H PRN PO CONSTIPATION; Start 10/05/16 at 21: 30 Magnesium Hydroxide (Milk Of Mag) 30 ml DAILY PRN PO CONSTIPATION; Start at 21:30 Sodium Biphosphate/ Sodium Phosphate (Fleet Enema) 133 ml DAILY PRN [place] CONSTIPATION; Start 10/05/16 at 21:30 Famotidine (Pepcid) 20 mg DAILY PO Last administered on 10/22/16 09:31; Admin Dose 20 MG; Start 10/06/16 at 09:00 Lorazepam (Ativan) 0.5 mg Q6H PRN IV ANXIETY Last administered on 10/13/16 21: 38; Admin Dose 0.5 MG; Start 10/05/16 at 21:30 Hydralazine HCl (Apresoline) 10 mg Q6H PRN IV ELEVATED SYSTOLIC BP Last administered on 10/18/16 23:48; Admin Dose 10 MG; Start 10/05/16 at 21:30 Clonidine (Catapres) 0.1 mg Q6H PRN PO ELEVATED SYSTOLIC BP; Start 10/05/16 at 21:30 Nitroglycerin (Nitroglycerin (Sl Tab) 0.4 Mg) 1 tab Q5M PRN SL ANGINA; Start at 21:30 Aspirin 325 mg 325 mg DAILY PO Last administered on 10/22/16 09:33; Admin Dose 325 MG; Start 10/06/16 at 09:00 Diltiazem HCl (Cardizem-D5W 125 Mg/125 ml Drip) 125 ml @ 5 mls/hr TITRATE IV ; Start 10/05/16 at 22:00 Diagnostic Test (Pha) (Accucheck) 1 ea 02 XX Last administered on 10/20/16 02: 02; Admin Dose 1 EA; Start 10/07/16 at 02:00 Zolpidem Tartrate (Ambien) 5 mg HS PRN PO INSOMNIA Last administered on 20:39; Admin Dose 5 MG; Start 10/06/16 at 01:00 Miscellaneous Information 1 ea NOTE XX ; Start 10/06/16 at 01:00 Glucose (Glutose) 15 gm Q15M PRN PO DECREASED GLUCOSE; Start 10/06/16 at 01:00 Glucose (Glutose) 22.5 gm Q15M PRN PO DECREASED GLUCOSE; Start 10/06/16 at 01: 00 Dextrose (D50w Syringe) 25 ml Q15M PRN IV DECREASED GLUCOSE; Start 10/06/16 at 01:00 Dextrose (D50w Syringe) 50 ml Q15M PRN IV DECREASED GLUCOSE; Start 10/06/16 at 01:00 Glucagon (Glucagen) 1 mg Q15M PRN IM DECREASED GLUCOSE; Start 10/06/16 at 01:00 Glucose (Glutose) 15 gm Q15M PRN BUCCAL DECREASED GLUCOSE; Start 10/06/16 at 01 :00 Cyanocobalamin (Vitamin B12) 1,000 mcg DAILY PO Last administered on 10/22/16 09:32; Admin Dose 1,000 MCG; Start 10/06/16 at 09:00 Folic Acid (Folic Acid) 0.8 mg DAILY PO Last administered on 10/22/16 09:31; Admin Dose 0.8 MG; Start 10/06/16 at 09:00 Triamcinolone Acetonide (Kenalog 0.1% Oint) 1 applic BID TOP Last administered on 10/22/16 09:33; Admin Dose 1 APPLIC; Start 10/06/16 at 09:00 Ferrous Sulfate (Slow Fe) 142 mg DAILY PO Last administered on 10/22/16 09:33; Admin Dose 142 MG; Start 10/07/16 at 09:00 Magnesium Oxide (Mag-Ox 400) 400 mg DAILY PO Last administered on 10/22/16 09: 32; Admin Dose 400 MG; Start 10/06/16 at 13:00 Clopidogrel Bisulfate (plaVIX) 75 mg DAILY PO Last administered on 10/22/16 09: 33; Admin Dose 75 MG; Start 10/06/16 at 12:00 Atorvastatin Calcium (Lipitor) 40 mg QHS PO Last administered on 10/21/16 20: 47; Admin Dose 40 MG; Start 10/06/16 at 21:00 Zolpidem Tartrate (Ambien) 10 mg QHS PRN PO INSOMNIA Last administered on 21:47; Admin Dose 10 MG; Start 10/06/16 at 16:30 Lorazepam (Ativan) 1 mg HS PO Last administered on 10/21/16 20:47; Admin Dose 1 MG; Start 10/07/16 at 21:00 Insulin Glargine (Lantus) 10 unit HS SC Last administered on 10/18/16 21:32; Admin Dose 10 UNIT; Start 10/07/16 at 21:00 Linagliptin (Tradjenta) 5 mg DAILY PO Last administered on 10/22/16 09:32; Admin Dose 5 MG; Start 10/07/16 at 17:00 Heparin Sodium (Porcine) (Heparin (5000 Units/0.5 ml)) 5,000 unit BID SC Last administered on 10/22/16 09:31; Admin Dose 5,000 UNIT; Start 10/10/16 at 12:00 Nifedipine 60 mg 60 mg QHS PO Last administered on 10/21/16 20:48; Admin Dose 60 MG; Start 10/10/16 at 21:00 Piperacillin Sod/ Tazobactam Sod (Zosyn 2.25gm/ 50ml (Pmx)) 50 ml @ 100 mls/hr Q8 IVPB Last administered on 10/22/16 14:00; Admin Dose 100 MLS/HR; Start 10/11 at 11:00 Acetaminophen (Tylenol Tab) 650 mg Q4H PRN PO NON-CARDIAC PAIN LEVEL (1-3) Last administered on 10/21/16 09:33; Admin Dose 650 MG; Start 10/13/16 at 11:00 Morphine Sulfate (morphine) 2 mg Q2H PRN IV FOR NON CARDIAC PAIN (4-10); Start 10/13/16 at 11:00 Al Hydrox/Mg Hydrox/Simethicone (Mag-Al Plus) 30 ml Q4H PRN PO GASTROINTESTINAL UPSET; Start 10/13/16 at 11:00 Ondansetron HCl (Zofran Inj) 4 mg Q4H PRN IV NAUSEA AND/OR VOMITING; Start at 11:00 Lidocaine (Xylocaine 1% (Mpf)) 30 ml ONCE PRN INJ ANESTHESIA; Start 10/15/16 at 14:30 Benazepril HCl (Lotensin) 40 mg BID PO Last administered on 10/22/16 09:32; Admin Dose 40 MG; Start 10/15/16 at 21:00 Nifedipine (Procardia Xl) 60 mg AM PO Last administered on 10/22/16 09:32; Admin Dose 60 MG; Start 10/20/16 at 09:00 Metoprolol Succinate (Toprol Xl) 50 mg BID PO Last administered on 10/22/16 09: 33; Admin Dose 50 MG; Start 10/20/16 at 21:00 JANAE ELDRIDGE Oct 22, 2016 14:17
--- NOTE | 2016-10-22 14:42 | CONS ---
Date/Time of Note Date/Time of Note DATE: 10/22/16 TIME: 14:36 Assessment/Plan Assessment/Plan Additional Assessment/Plan ACS Paroxysmal atrial fibrillation Abnormal electrocardiogram CAD s/p [place] s/p PTCA and stenting Ischemic Cardiomyopathy Hypertension Diabetes CHF GNR Bacteremia ESRD on HD Anemia Hemodynamically stable Rhythm Normal sinus rhythm Heart failure clinically compensated Continue Metoprolol, Procardia and Benazepril Continue ASA and Plavix Continue Heparin Continue Insulin Continue Lipitor Continue GI and DVT Prophylaxis Continue Antibiotics as scheduled Consultation Date/Type/Reason Admit Date/Time Oct 05, 2016 at 21:04 Constitutional: no complaints Respiratory: shortness of breath Cardiovascular: No chest pain Psychological: no complaints Social History Smoking Status: Never smoker Exam/Review of Systems Vital Signs Vitals Vital Signs Date Time Temp Pulse Resp B/P Pulse Ox O2 Delivery O2 Flow Rate FiO2 10/22/16 07:35 97.8 73 16 155/74 99 10/21/16 16:25 21 10/19/16 13:45 Room Air Intake and Output 10/21/16 10/21/16 10/22/16 15:00 23:00 07:00 Intake Total 500 ml 930 ml 450 ml Output Total 2500 ml Balance -2000 ml 930 ml 450 ml Exam Head: atraumatic, normocephalic Respiratory: clear to auscultation Cardiovascular: regular rate and rhythm Gastrointestinal: nl liver, spleen, non-tender, soft Extremities: normal pulses Results Result Diagram: 10/22/16 0540 10/22/16 0540 Results 24 hrs Laboratory Tests Test 10/21/16 16:39 10/21/16 20:43 10/22/16 05:40 10/22/16 07:33 Bedside Glucose 161 191 139 White Blood Count 7.7 # Red Blood Count 3.71 L Hemoglobin 9.9 L Hematocrit 32.3 L Mean Corpuscular Volume 87.1 Mean Corpuscular Hemoglobin 26.7 L Mean Corpuscular Hemoglobin Concent 30.7 L Red Cell Distribution Width 16.1 H Platelet Count 252 Mean Platelet Volume 11.2 H Neutrophils % 59.4 Lymphocytes % 27.6 Monocytes % 9.3 Eosinophils % 2.3 Basophils % 0.9 Nucleated Red Blood Cells % 0.0 Neutrophils # 4.6 Lymphocytes # 2.1 Monocytes # 0.7 Eosinophils # 0.2 Basophils # 0.1 Nucleated Red Blood Cells # 0.0 Sodium Level 138 Potassium Level 4.0 Chloride Level 102 Carbon Dioxide Level 24 Anion Gap 16 Blood Urea Nitrogen 36 H Creatinine 5.19 H Glucose Level 160 Calcium Level 9.1 Phosphorus Level 3.6 Magnesium Level 2.3 Test 10/22/16 11:40 Bedside Glucose 183 Medications Medications Current Medications Acetaminophen/ Hydrocodone Bitart ([place] (5/325)) 1 tab Q6H PRN PO MODERATE PAIN LEVEL 4-6; Start 10/05/16 at 21:30 Morphine Sulfate (morphine) 2 mg Q4H PRN IV SEVERE PAIN LEVEL 7-10; Start 10/05 at 21:30 Docusate Sodium (Colace) 100 mg Q12H PRN PO CONSTIPATION; Start 10/05/16 at 21: 30 Magnesium Hydroxide (Milk Of Mag) 30 ml DAILY PRN PO CONSTIPATION; Start at 21:30 Sodium Biphosphate/ Sodium Phosphate (Fleet Enema) 133 ml DAILY PRN [place] CONSTIPATION; Start 10/05/16 at 21:30 Famotidine (Pepcid) 20 mg DAILY PO Last administered on 10/22/16 09:31; Admin Dose 20 MG; Start 10/06/16 at 09:00 Lorazepam (Ativan) 0.5 mg Q6H PRN IV ANXIETY Last administered on 10/13/16 21: 38; Admin Dose 0.5 MG; Start 10/05/16 at 21:30 Hydralazine HCl (Apresoline) 10 mg Q6H PRN IV ELEVATED SYSTOLIC BP Last administered on 10/18/16 23:48; Admin Dose 10 MG; Start 10/05/16 at 21:30 Clonidine (Catapres) 0.1 mg Q6H PRN PO ELEVATED SYSTOLIC BP; Start 10/05/16 at 21:30 Nitroglycerin (Nitroglycerin (Sl Tab) 0.4 Mg) 1 tab Q5M PRN SL ANGINA; Start at 21:30 Aspirin 325 mg 325 mg DAILY PO Last administered on 10/22/16 09:33; Admin Dose 325 MG; Start 10/06/16 at 09:00 Diltiazem HCl (Cardizem-D5W 125 Mg/125 ml Drip) 125 ml @ 5 mls/hr TITRATE IV ; Start 10/05/16 at 22:00 Diagnostic Test (Pha) (Accucheck) 1 ea 02 XX Last administered on 10/20/16 02: 02; Admin Dose 1 EA; Start 10/07/16 at 02:00 Zolpidem Tartrate (Ambien) 5 mg HS PRN PO INSOMNIA Last administered on 20:39; Admin Dose 5 MG; Start 10/06/16 at 01:00 Miscellaneous Information 1 ea NOTE XX ; Start 10/06/16 at 01:00 Glucose (Glutose) 15 gm Q15M PRN PO DECREASED GLUCOSE; Start 10/06/16 at 01:00 Glucose (Glutose) 22.5 gm Q15M PRN PO DECREASED GLUCOSE; Start 10/06/16 at 01: 00 Dextrose (D50w Syringe) 25 ml Q15M PRN IV DECREASED GLUCOSE; Start 10/06/16 at 01:00 Dextrose (D50w Syringe) 50 ml Q15M PRN IV DECREASED GLUCOSE; Start 10/06/16 at 01:00 Glucagon (Glucagen) 1 mg Q15M PRN IM DECREASED GLUCOSE; Start 10/06/16 at 01:00 Glucose (Glutose) 15 gm Q15M PRN BUCCAL DECREASED GLUCOSE; Start 10/06/16 at 01 :00 Cyanocobalamin (Vitamin B12) 1,000 mcg DAILY PO Last administered on 10/22/16 09:32; Admin Dose 1,000 MCG; Start 10/06/16 at 09:00 Folic Acid (Folic Acid) 0.8 mg DAILY PO Last administered on 10/22/16 09:31; Admin Dose 0.8 MG; Start 10/06/16 at 09:00 Triamcinolone Acetonide (Kenalog 0.1% Oint) 1 applic BID TOP Last administered on 10/22/16 09:33; Admin Dose 1 APPLIC; Start 10/06/16 at 09:00 Ferrous Sulfate (Slow Fe) 142 mg DAILY PO Last administered on 10/22/16 09:33; Admin Dose 142 MG; Start 10/07/16 at 09:00 Magnesium Oxide (Mag-Ox 400) 400 mg DAILY PO Last administered on 10/22/16 09: 32; Admin Dose 400 MG; Start 10/06/16 at 13:00 Clopidogrel Bisulfate (plaVIX) 75 mg DAILY PO Last administered on 10/22/16 09: 33; Admin Dose 75 MG; Start 10/06/16 at 12:00 Atorvastatin Calcium (Lipitor) 40 mg QHS PO Last administered on 10/21/16 20: 47; Admin Dose 40 MG; Start 10/06/16 at 21:00 Zolpidem Tartrate (Ambien) 10 mg QHS PRN PO INSOMNIA Last administered on 21:47; Admin Dose 10 MG; Start 10/06/16 at 16:30 Lorazepam (Ativan) 1 mg HS PO Last administered on 10/21/16 20:47; Admin Dose 1 MG; Start 10/07/16 at 21:00 Insulin Glargine (Lantus) 10 unit HS SC Last administered on 10/18/16 21:32; Admin Dose 10 UNIT; Start 10/07/16 at 21:00 Linagliptin (Tradjenta) 5 mg DAILY PO Last administered on 10/22/16 09:32; Admin Dose 5 MG; Start 10/07/16 at 17:00 Heparin Sodium (Porcine) (Heparin (5000 Units/0.5 ml)) 5,000 unit BID SC Last administered on 10/22/16 09:31; Admin Dose 5,000 UNIT; Start 10/10/16 at 12:00 Nifedipine 60 mg 60 mg QHS PO Last administered on 10/21/16 20:48; Admin Dose 60 MG; Start 10/10/16 at 21:00 Piperacillin Sod/ Tazobactam Sod (Zosyn 2.25gm/ 50ml (Pmx)) 50 ml @ 100 mls/hr Q8 IVPB Last administered on 10/22/16 14:00; Admin Dose 100 MLS/HR; Start 10/11 at 11:00 Acetaminophen (Tylenol Tab) 650 mg Q4H PRN PO NON-CARDIAC PAIN LEVEL (1-3) Last administered on 10/21/16 09:33; Admin Dose 650 MG; Start 10/13/16 at 11:00 Morphine Sulfate (morphine) 2 mg Q2H PRN IV FOR NON CARDIAC PAIN (4-10); Start 10/13/16 at 11:00 Al Hydrox/Mg Hydrox/Simethicone (Mag-Al Plus) 30 ml Q4H PRN PO GASTROINTESTINAL UPSET; Start 10/13/16 at 11:00 Ondansetron HCl (Zofran Inj) 4 mg Q4H PRN IV NAUSEA AND/OR VOMITING; Start at 11:00 Lidocaine (Xylocaine 1% (Mpf)) 30 ml ONCE PRN INJ ANESTHESIA; Start 10/15/16 at 14:30 Benazepril HCl (Lotensin) 40 mg BID PO Last administered on 10/22/16 09:32; Admin Dose 40 MG; Start 10/15/16 at 21:00 Nifedipine (Procardia Xl) 60 mg AM PO Last administered on 10/22/16 09:32; Admin Dose 60 MG; Start 10/20/16 at 09:00 Metoprolol Succinate (Toprol Xl) 50 mg BID PO Last administered on 10/22/16 09: 33; Admin Dose 50 MG; Start 10/20/16 at 21:00 GEMA BALBUENA M.D. Oct 22, 2016 14:42
--- NOTE | 2016-10-22 20:05 | CONS ---
Date/Time of Note Date/Time of Note DATE: 10/22/16 TIME: 20:05 Assessment/Plan Assessment/Plan Chief Complaint/Hosp Course SUBJECTIVE: No acute events, ambulating outside his room with [employer] OPERATOR, nad, no fevers ANTIMICROBIALS: Zosyn. Indwelling: R fem Calvin 10/19/16 PHYSICAL EXAMINATION: GENERAL: This is well-developed, elderly man, who is alert, in no distress. HEENT: Head atraumatic, normocephalic. Sclerae anicteric. Buccal mucosa pink. NECK: Supple, trachea midline. CHEST: Chest rise is symmetrical. Breath sounds clear. HEART: S1, S2. ABDOMEN: Soft, bowel tones present. EXTREMITIES: Without cyanosis. ASSESSMENT: 1. Bacteremia, likely secondary to infected PermCath==> s/p dc'd. 2. Anemia. 3. Atrial fibrillation. 4. Diabetes. 5. Pneumonia. PLAN: Remains stable, repeat bld cx negative, continue Zosyn, HD per renal, ok for permacath placement DW staff/pt Problems: Consultation Date/Type/Reason Admit Date/Time Oct 05, 2016 at 21:04 Type of Consultation: id Referring Provider: JANAE ELDRIDGE Exam/Review of Systems Vital Signs Vitals Vital Signs Date Time Temp Pulse Resp B/P Pulse Ox O2 Delivery O2 Flow Rate FiO2 10/22/16 07:35 97.8 73 16 155/74 99 10/21/16 16:25 21 10/19/16 13:45 Room Air Intake and Output 10/21/16 10/21/16 10/22/16 15:00 23:00 07:00 Intake Total 500 ml 930 ml 450 ml Output Total 2500 ml Balance -2000 ml 930 ml 450 ml Results Result Diagram: 10/22/16 0540 10/22/16 0540 Results 24 hrs Laboratory Tests Test 10/21/16 20:43 10/22/16 05:40 10/22/16 07:33 10/22/16 11:40 Bedside Glucose 191 139 183 White Blood Count 7.7 # Red Blood Count 3.71 L Hemoglobin 9.9 L Hematocrit 32.3 L Mean Corpuscular Volume 87.1 Mean Corpuscular Hemoglobin 26.7 L Mean Corpuscular Hemoglobin Concent 30.7 L Red Cell Distribution Width 16.1 H Platelet Count 252 Mean Platelet Volume 11.2 H Neutrophils % 59.4 Lymphocytes % 27.6 Monocytes % 9.3 Eosinophils % 2.3 Basophils % 0.9 Nucleated Red Blood Cells % 0.0 Neutrophils # 4.6 Lymphocytes # 2.1 Monocytes # 0.7 Eosinophils # 0.2 Basophils # 0.1 Nucleated Red Blood Cells # 0.0 Sodium Level 138 Potassium Level 4.0 Chloride Level 102 Carbon Dioxide Level 24 Anion Gap 16 Blood Urea Nitrogen 36 H Creatinine 5.19 H Glucose Level 160 Calcium Level 9.1 Phosphorus Level 3.6 Magnesium Level 2.3 Test 10/22/16 16:41 Bedside Glucose 181 Medications Medications Current Medications Acetaminophen/ Hydrocodone Bitart ([place] (5/325)) 1 tab Q6H PRN PO MODERATE PAIN LEVEL 4-6; Start 10/05/16 at 21:30 Morphine Sulfate (morphine) 2 mg Q4H PRN IV SEVERE PAIN LEVEL 7-10; Start 10/05 at 21:30 Docusate Sodium (Colace) 100 mg Q12H PRN PO CONSTIPATION; Start 10/05/16 at 21: 30 Magnesium Hydroxide (Milk Of Mag) 30 ml DAILY PRN PO CONSTIPATION; Start at 21:30 Sodium Biphosphate/ Sodium Phosphate (Fleet Enema) 133 ml DAILY PRN [place] CONSTIPATION; Start 10/05/16 at 21:30 Famotidine (Pepcid) 20 mg DAILY PO Last administered on 10/22/16 09:31; Admin Dose 20 MG; Start 10/06/16 at 09:00 Lorazepam (Ativan) 0.5 mg Q6H PRN IV ANXIETY Last administered on 10/13/16 21: 38; Admin Dose 0.5 MG; Start 10/05/16 at 21:30 Hydralazine HCl (Apresoline) 10 mg Q6H PRN IV ELEVATED SYSTOLIC BP Last administered on 10/18/16 23:48; Admin Dose 10 MG; Start 10/05/16 at 21:30 Clonidine (Catapres) 0.1 mg Q6H PRN PO ELEVATED SYSTOLIC BP; Start 10/05/16 at 21:30 Nitroglycerin (Nitroglycerin (Sl Tab) 0.4 Mg) 1 tab Q5M PRN SL ANGINA; Start at 21:30 Aspirin 325 mg 325 mg DAILY PO Last administered on 10/22/16 09:33; Admin Dose 325 MG; Start 10/06/16 at 09:00 Diltiazem HCl (Cardizem-D5W 125 Mg/125 ml Drip) 125 ml @ 5 mls/hr TITRATE IV ; Start 10/05/16 at 22:00 Diagnostic Test (Pha) (Accucheck) 1 ea 02 XX Last administered on 10/20/16 02: 02; Admin Dose 1 EA; Start 10/07/16 at 02:00 Zolpidem Tartrate (Ambien) 5 mg HS PRN PO INSOMNIA Last administered on 20:39; Admin Dose 5 MG; Start 10/06/16 at 01:00 Miscellaneous Information 1 ea NOTE XX ; Start 10/06/16 at 01:00 Glucose (Glutose) 15 gm Q15M PRN PO DECREASED GLUCOSE; Start 10/06/16 at 01:00 Glucose (Glutose) 22.5 gm Q15M PRN PO DECREASED GLUCOSE; Start 10/06/16 at 01: 00 Dextrose (D50w Syringe) 25 ml Q15M PRN IV DECREASED GLUCOSE; Start 10/06/16 at 01:00 Dextrose (D50w Syringe) 50 ml Q15M PRN IV DECREASED GLUCOSE; Start 10/06/16 at 01:00 Glucagon (Glucagen) 1 mg Q15M PRN IM DECREASED GLUCOSE; Start 10/06/16 at 01:00 Glucose (Glutose) 15 gm Q15M PRN BUCCAL DECREASED GLUCOSE; Start 10/06/16 at 01 :00 Cyanocobalamin (Vitamin B12) 1,000 mcg DAILY PO Last administered on 10/22/16 09:32; Admin Dose 1,000 MCG; Start 10/06/16 at 09:00 Folic Acid (Folic Acid) 0.8 mg DAILY PO Last administered on 10/22/16 09:31; Admin Dose 0.8 MG; Start 10/06/16 at 09:00 Triamcinolone Acetonide (Kenalog 0.1% Oint) 1 applic BID TOP Last administered on 10/22/16 09:33; Admin Dose 1 APPLIC; Start 10/06/16 at 09:00 Ferrous Sulfate (Slow Fe) 142 mg DAILY PO Last administered on 10/22/16 09:33; Admin Dose 142 MG; Start 10/07/16 at 09:00 Magnesium Oxide (Mag-Ox 400) 400 mg DAILY PO Last administered on 10/22/16 09: 32; Admin Dose 400 MG; Start 10/06/16 at 13:00 Clopidogrel Bisulfate (plaVIX) 75 mg DAILY PO Last administered on 10/22/16 09: 33; Admin Dose 75 MG; Start 10/06/16 at 12:00 Atorvastatin Calcium (Lipitor) 40 mg QHS PO Last administered on 10/21/16 20: 47; Admin Dose 40 MG; Start 10/06/16 at 21:00 Zolpidem Tartrate (Ambien) 10 mg QHS PRN PO INSOMNIA Last administered on 21:47; Admin Dose 10 MG; Start 10/06/16 at 16:30 Lorazepam (Ativan) 1 mg HS PO Last administered on 10/21/16 20:47; Admin Dose 1 MG; Start 10/07/16 at 21:00 Insulin Glargine (Lantus) 10 unit HS SC Last administered on 10/18/16 21:32; Admin Dose 10 UNIT; Start 10/07/16 at 21:00 Linagliptin (Tradjenta) 5 mg DAILY PO Last administered on 10/22/16 09:32; Admin Dose 5 MG; Start 10/07/16 at 17:00 Heparin Sodium (Porcine) (Heparin (5000 Units/0.5 ml)) 5,000 unit BID SC Last administered on 10/22/16 09:31; Admin Dose 5,000 UNIT; Start 10/10/16 at 12:00 Nifedipine 60 mg 60 mg QHS PO Last administered on 10/21/16 20:48; Admin Dose 60 MG; Start 10/10/16 at 21:00 Piperacillin Sod/ Tazobactam Sod (Zosyn 2.25gm/ 50ml (Pmx)) 50 ml @ 100 mls/hr Q8 IVPB Last administered on 10/22/16 14:00; Admin Dose 100 MLS/HR; Start 10/11 at 11:00 Acetaminophen (Tylenol Tab) 650 mg Q4H PRN PO NON-CARDIAC PAIN LEVEL (1-3) Last administered on 10/21/16 09:33; Admin Dose 650 MG; Start 10/13/16 at 11:00 Morphine Sulfate (morphine) 2 mg Q2H PRN IV FOR NON CARDIAC PAIN (4-10); Start 10/13/16 at 11:00 Al Hydrox/Mg Hydrox/Simethicone (Mag-Al Plus) 30 ml Q4H PRN PO GASTROINTESTINAL UPSET; Start 10/13/16 at 11:00 Ondansetron HCl (Zofran Inj) 4 mg Q4H PRN IV NAUSEA AND/OR VOMITING; Start at 11:00 Lidocaine (Xylocaine 1% (Mpf)) 30 ml ONCE PRN INJ ANESTHESIA; Start 10/15/16 at 14:30 Benazepril HCl (Lotensin) 40 mg BID PO Last administered on 10/22/16 09:32; Admin Dose 40 MG; Start 10/15/16 at 21:00 Nifedipine (Procardia Xl) 60 mg AM PO Last administered on 10/22/16 09:32; Admin Dose 60 MG; Start 10/20/16 at 09:00 Metoprolol Succinate (Toprol Xl) 50 mg BID PO Last administered on 10/22/16 09: 33; Admin Dose 50 MG; Start 10/20/16 at 21:00 ALEXA BERRY NP Oct 22, 2016 20:05
[2016-10-22 20:22] VITALS: BP 172/84; RESP 18
[2016-10-22] MEDS: ATORVASTATIN 40 MG TAB PO SCH (20:32)
[2016-10-22] MEDS: LORAZEPAM 0.5 MG TAB PO SCH (20:33)
[2016-10-22] MEDS: INSULIN GLARGINE [LANtus] 3 ML PEN SC SCH (20:35)
[2016-10-22] MEDS: ZOLPIDEM 5 MG TAB PO PRN (21:44)
[2016-10-22] MEDS: hydrALAzine 20 MG INJ IV PRN (23:09)
[2016-10-23] VITALS (9 sets, daily range): BP systolic 114–164; BP diastolic 63–90; PULSE 6–78; RESP 18
[2016-10-23] MEDS: ACCU-CHEK XX SCH (02:41)
[2016-10-23] MEDS: PIPER-TAZO 2.25 GM (PMX) 50 ML IVPB SCH ×3 (05:13→22:15)
[2016-10-23 06:58] LABS: CREATININE 6.63 mg/dl (0.61-1.24)
[2016-10-23] MEDS: INSULIN ASPART [NOVOLOG] 3 ML PEN SC SCH ×4 (07:41→21:00)
[2016-10-23] MEDS: FERROUS SULFATE (SR) 142 MG TAB PO SCH (09:21)
[2016-10-23] MEDS: CYANOCOBALAMIN 500 MCG TAB PO SCH (09:22)
[2016-10-23] MEDS: CLOPIDOGREL 75 MG TAB PO SCH (09:22)
[2016-10-23] MEDS: ASPIRIN (EC) 325 MG TAB PO SCH (09:22)
[2016-10-23] MEDS: FAMOTIDINE 20 MG TAB PO SCH (09:22)
[2016-10-23] MEDS: MAGNESIUM OXIDE 400 MG TAB PO SCH (09:22)
[2016-10-23] MEDS: LINAGLIPTIN 5 MG TABLET PO SCH (09:23)
[2016-10-23] MEDS: FOLIC ACID 0.4 MG TAB PO SCH (09:23)
[2016-10-23] MEDS: HEPARIN 5,000 UNIT/0.5 ML SYG SC SCH ×2 (09:24→21:00)
[2016-10-23] MEDS: METOPROLOL (XL) 50 MG TAB PO SCH ×2 (09:26→21:11)
[2016-10-23] MEDS: NIFEdipine (XL) 60 MG TAB PO SCH ×2 (09:26→21:12)
[2016-10-23] MEDS: BENAZEPRIL 40 MG TAB PO SCH ×2 (09:27→21:11)
[2016-10-23] MEDS: TRIAMCINOLONE ACET 0.1% 15 GM OINT TOP SCH ×2 (09:30→21:58)
--- NOTE | 2016-10-23 10:46 | PN ---
DATE: 10/23/2016 SUBJECTIVE: The patient is stable. No acute events overnight. No fever, chills, nausea, or vomiti ng. OBJECTIVE: VITAL SIGNS: Blood pressure is 144/82, respiration 18, pulse 76, temperature 97.5. HEENT: Head is normocephalic. NECK: Supple. HEART: Regular rate. LUNGS: Show diminished breath sounds at base. ABDOMEN: Soft, nontender to palpation without rebound or guarding. EXTREMITIES: Negative for clubbing, cyanosis, no edema. DERMATOLOGIC: No rashes. MUSCULOSKELETAL: No joint effusions. NEUROLOGIC: No change in exam. MEDICATIONS: The patient's medications have been reviewed. LABORATORY DATA: Shows sodium 138, potassium 4.0, chloride 98, BUN 50, creatinine 6.63. White coun t 7.7, hemoglobin 9.9, hematocrit 32.3, platelet count is 252. ASSESSMENT AND PLAN: 1. End-stage renal disease. Plan for next hemodialysis tomorrow. We will dialyze 3 hours 3 K bath , calcium 2.5. 2. Access. The patient is pending PermCath placement on Monday. 3. Sepsis secondary to line infection, clinically improving. Continue current antibiotic therapy. 4. Cardiomyopathy. Continue medical management. 5. Anemia of chronic disease. Continue to monitor H and H levels. 6. Atrial fibrillation, rate controlled. Continue medical management. 7. Diabetes. Continue Accu-Cheks and sliding scale. 8. Hypertension. Continue current blood pressure regimen. 9. Status post respiratory failure. Dictated By: NOEMI BOTELLO/CHANTALE Conf#: [id number] DID#: [id number]
--- NOTE | 2016-10-23 14:54 | CONS ---
Date/Time of Note Date/Time of Note DATE: 10/23/16 TIME: 14:53 Assessment/Plan Assessment/Plan Additional Assessment/Plan ACS Paroxysmal atrial fibrillation Abnormal electrocardiogram CAD s/p AR s/p PTCA and stenting Ischemic Cardiomyopathy Hypertension Diabetes CHF GNR Bacteremia ESRD on HD Anemia Hemodynamically stable Rhythm Normal sinus rhythm Heart failure clinically compensated Continue Metoprolol, Procardia and Benazepril Continue ASA and Plavix Continue Heparin Continue Insulin Continue Lipitor Continue GI and DVT Prophylaxis Continue Antibiotics as scheduled Consultation Date/Type/Reason Admit Date/Time Oct 05, 2016 at 21:04 Initial Consult Date Type of Consultation: id Referring Provider: JANAE ELDRIDGE Exam/Review of Systems Vital Signs Vitals Vital Signs Date Time Temp Pulse Resp B/P Pulse Ox O2 Delivery O2 Flow Rate FiO2 10/23/16 07:25 97.5 76 18 144/82 98 10/21/16 16:25 21 10/19/16 13:45 Room Air Intake and Output 10/22/16 10/22/16 10/23/16 15:00 23:00 07:00 Intake Total 960 ml 650 ml Balance 960 ml 650 ml Exam Head: atraumatic, normocephalic Respiratory: clear to auscultation Cardiovascular: regular rate and rhythm Gastrointestinal: nl liver, spleen, non-tender, soft Extremities: normal pulses Results Result Diagram: 10/22/16 0540 10/23/16 0510 Results 24 hrs Laboratory Tests Test 10/22/16 16:41 10/22/16 20:28 10/23/16 02:09 10/23/16 05:10 Bedside Glucose 181 210 86 Sodium Level 138 Potassium Level 4.0 Chloride Level 98 Carbon Dioxide Level 22 Anion Gap 22 H Blood Urea Nitrogen 50 H Creatinine 6.63 H Glucose Level 102 # Calcium Level 9.0 Test 10/23/16 07:35 10/23/16 11:33 Bedside Glucose 108 167 Medications Medications Current Medications Acetaminophen/ Hydrocodone Bitart ([place] (5/325)) 1 tab Q6H PRN PO MODERATE PAIN LEVEL 4-6; Start 10/05/16 at 21:30 Morphine Sulfate (morphine) 2 mg Q4H PRN IV SEVERE PAIN LEVEL 7-10; Start 10/05 at 21:30 Docusate Sodium (Colace) 100 mg Q12H PRN PO CONSTIPATION; Start 10/05/16 at 21: 30 Magnesium Hydroxide (Milk Of Mag) 30 ml DAILY PRN PO CONSTIPATION; Start at 21:30 Sodium Biphosphate/ Sodium Phosphate (Fleet Enema) 133 ml DAILY PRN [place] CONSTIPATION; Start 10/05/16 at 21:30 Famotidine (Pepcid) 20 mg DAILY PO Last administered on 10/23/16 09:22; Admin Dose 20 MG; Start 10/06/16 at 09:00 Lorazepam (Ativan) 0.5 mg Q6H PRN IV ANXIETY Last administered on 10/13/16 21: 38; Admin Dose 0.5 MG; Start 10/05/16 at 21:30 Hydralazine HCl (Apresoline) 10 mg Q6H PRN IV ELEVATED SYSTOLIC BP Last administered on 10/22/16 23:09; Admin Dose 10 MG; Start 10/05/16 at 21:30 Clonidine (Catapres) 0.1 mg Q6H PRN PO ELEVATED SYSTOLIC BP; Start 10/05/16 at 21:30 Nitroglycerin (Nitroglycerin (Sl Tab) 0.4 Mg) 1 tab Q5M PRN SL ANGINA; Start at 21:30 Aspirin 325 mg 325 mg DAILY PO Last administered on 10/23/16 09:22; Admin Dose 325 MG; Start 10/06/16 at 09:00 Diltiazem HCl (Cardizem-D5W 125 Mg/125 ml Drip) 125 ml @ 5 mls/hr TITRATE IV ; Start 10/05/16 at 22:00 Diagnostic Test (Pha) (Accucheck) 1 ea 02 XX Last administered on 10/23/16 02: 41; Admin Dose 1 EA; Start 10/07/16 at 02:00 Zolpidem Tartrate (Ambien) 5 mg HS PRN PO INSOMNIA Last administered on 20:39; Admin Dose 5 MG; Start 10/06/16 at 01:00 Miscellaneous Information 1 ea NOTE XX ; Start 10/06/16 at 01:00 Glucose (Glutose) 15 gm Q15M PRN PO DECREASED GLUCOSE; Start 10/06/16 at 01:00 Glucose (Glutose) 22.5 gm Q15M PRN PO DECREASED GLUCOSE; Start 10/06/16 at 01: 00 Dextrose (D50w Syringe) 25 ml Q15M PRN IV DECREASED GLUCOSE; Start 10/06/16 at 01:00 Dextrose (D50w Syringe) 50 ml Q15M PRN IV DECREASED GLUCOSE; Start 10/06/16 at 01:00 Glucagon (Glucagen) 1 mg Q15M PRN IM DECREASED GLUCOSE; Start 10/06/16 at 01:00 Glucose (Glutose) 15 gm Q15M PRN BUCCAL DECREASED GLUCOSE; Start 10/06/16 at 01 :00 Cyanocobalamin (Vitamin B12) 1,000 mcg DAILY PO Last administered on 10/23/16 09:22; Admin Dose 1,000 MCG; Start 10/06/16 at 09:00 Folic Acid (Folic Acid) 0.8 mg DAILY PO Last administered on 10/23/16 09:23; Admin Dose 0.8 MG; Start 10/06/16 at 09:00 Triamcinolone Acetonide (Kenalog 0.1% Oint) 1 applic BID TOP Last administered on 10/23/16 09:30; Admin Dose 1 APPLIC; Start 10/06/16 at 09:00 Ferrous Sulfate (Slow Fe) 142 mg DAILY PO Last administered on 10/23/16 09:21; Admin Dose 142 MG; Start 10/07/16 at 09:00 Magnesium Oxide (Mag-Ox 400) 400 mg DAILY PO Last administered on 10/23/16 09: 22; Admin Dose 400 MG; Start 10/06/16 at 13:00 Clopidogrel Bisulfate (plaVIX) 75 mg DAILY PO Last administered on 10/23/16 09: 22; Admin Dose 75 MG; Start 10/06/16 at 12:00 Atorvastatin Calcium (Lipitor) 40 mg QHS PO Last administered on 10/22/16 20:32 ; Admin Dose 40 MG; Start 10/06/16 at 21:00 Zolpidem Tartrate (Ambien) 10 mg QHS PRN PO INSOMNIA Last administered on 21:44; Admin Dose 10 MG; Start 10/06/16 at 16:30 Lorazepam (Ativan) 1 mg HS PO Last administered on 10/22/16 20:33; Admin Dose 1 MG; Start 10/07/16 at 21:00 Insulin Glargine (Lantus) 10 unit HS SC Last administered on 10/22/16 20:35; Admin Dose 10 UNIT; Start 10/07/16 at 21:00 Linagliptin (Tradjenta) 5 mg DAILY PO Last administered on 10/23/16 09:23; Admin Dose 5 MG; Start 10/07/16 at 17:00 Heparin Sodium (Porcine) (Heparin (5000 Units/0.5 ml)) 5,000 unit BID SC Last administered on 10/23/16 09:24; Admin Dose 5,000 UNIT; Start 10/10/16 at 12:00 Nifedipine 60 mg 60 mg QHS PO Last administered on 10/22/16 20:33; Admin Dose 60 MG; Start 10/10/16 at 21:00 Piperacillin Sod/ Tazobactam Sod (Zosyn 2.25gm/ 50ml (Pmx)) 50 ml @ 100 mls/hr Q8 IVPB Last administered on 10/23/16 13:48; Admin Dose 100 MLS/HR; Start 10/11 at 11:00 Acetaminophen (Tylenol Tab) 650 mg Q4H PRN PO NON-CARDIAC PAIN LEVEL (1-3) Last administered on 10/21/16 09:33; Admin Dose 650 MG; Start 10/13/16 at 11:00 Morphine Sulfate (morphine) 2 mg Q2H PRN IV FOR NON CARDIAC PAIN (4-10); Start 10/13/16 at 11:00 Al Hydrox/Mg Hydrox/Simethicone (Mag-Al Plus) 30 ml Q4H PRN PO GASTROINTESTINAL UPSET; Start 10/13/16 at 11:00 Ondansetron HCl (Zofran Inj) 4 mg Q4H PRN IV NAUSEA AND/OR VOMITING; Start at 11:00 Lidocaine (Xylocaine 1% (Mpf)) 30 ml ONCE PRN INJ ANESTHESIA; Start 10/15/16 at 14:30 Benazepril HCl (Lotensin) 40 mg BID PO Last administered on 10/23/16 09:27; Admin Dose 40 MG; Start 10/15/16 at 21:00 Nifedipine (Procardia Xl) 60 mg AM PO Last administered on 10/23/16 09:26; Admin Dose 60 MG; Start 10/20/16 at 09:00 Metoprolol Succinate (Toprol Xl) 50 mg BID PO Last administered on 10/23/16 09: 26; Admin Dose 50 MG; Start 10/20/16 at 21:00 GEMA BALUBENA M.D. Oct 23, 2016 14:54
[2016-10-23] MEDS ORDERED: [UNRECOGNIZED DRUG - REMARK] XX SCH (17:00)
--- NOTE | 2016-10-23 17:49 | PN ---
Date/Time of Note Date/Time of Note DATE: 10/23/16 TIME: 17:47 Assessment/Plan VTE Prophylaxis VTE Prophylaxis Intervention: heparin Lines/Catheters IV Catheter Type (from [facility]): [facility] catheter Urinary Cath still in place: No Assessment/Plan Chief Complaint/Hosp Course 1. Acute respiratory distress secondary to volume overload with underlying end -stage renal disease and congestive heart failure, improved Stable on room air 2. Atrial fibrillation with rapid ventricular response, converted back to sinus now rate controlled 3. NSTEMI type 2 s/p C 10/13/16 with findings: * Moderate obstruction of distal left main but with excellent flow and moderate obstruction of mid LAD with excellent flow. * Widely patent LAD and circumflex stents. * Elevated left heart filling pressures. * No significant aortic stenosis by gradient. 4. End-stage renal disease on hemodialysis Cont dialysis via [facility] 5. History of diabetes mellitus type 2. Hemoglobin 6.3. 6. Anemia of chronic disease. 7. Known coronary artery disease with recent history of PTCA and stent placement at [facility]. 8. Hypertensive urgency, resolved. 9. Acute on chronic systolic congestive heart failure with Ischemic CM and ejection fraction of 25% 10. Probable line sepsis with Gram negative kait bacteremia: RALSTONIA PICKETTII Dialysis line removed, patient on line holiday continue IV antibiotics, placement of new access line on Monday, currently getting HD via [facility] -Most recent Blood Cx neg after 2 days 11. Mild Chronic dementia with some mild underlying confusion 12. Mild Depression Dispo: Anticipate DC tomorrow after permacath placement if cleared by ID and nephro Prophylaxis: Heparin / pepcid Problems: Subjective 24 Hr Interval Summary Constitutional: no complaints Exam/Review of Systems Vital Signs Vitals Vital Signs Date Time Temp Pulse Resp B/P Pulse Ox O2 Delivery O2 Flow Rate FiO2 10/23/16 07:25 97.5 76 18 144/82 98 10/21/16 16:25 21 10/19/16 13:45 Room Air Intake and Output 10/22/16 10/22/16 10/23/16 15:00 23:00 07:00 Intake Total 50 ml 960 ml 650 ml Balance 50 ml 960 ml 650 ml Exam Constitutional: alert Respiratory: clear to auscultation Cardiovascular: regular rate and rhythm Gastrointestinal: soft, No distended Musculoskeletal: nl extremities to inspection Results Result Diagram: 10/22/16 0540 10/23/16 0510 Results 24 hrs Laboratory Tests Test 10/22/16 20:28 10/23/16 02:09 10/23/16 05:10 10/23/16 07:35 Bedside Glucose 210 86 108 Sodium Level 138 Potassium Level 4.0 Chloride Level 98 Carbon Dioxide Level 22 Anion Gap 22 H Blood Urea Nitrogen 50 H Creatinine 6.63 H Glucose Level 102 # Calcium Level 9.0 Test 10/23/16 11:33 10/23/16 16:52 Bedside Glucose 167 201 Medications Medications Current Medications Acetaminophen/ Hydrocodone Bitart ([place] (5/325)) 1 tab Q6H PRN PO MODERATE PAIN LEVEL 4-6; Start 10/05/16 at 21:30 Morphine Sulfate (morphine) 2 mg Q4H PRN IV SEVERE PAIN LEVEL 7-10; Start 10/05 at 21:30 Docusate Sodium (Colace) 100 mg Q12H PRN PO CONSTIPATION; Start 10/05/16 at 21: 30 Magnesium Hydroxide (Milk Of Mag) 30 ml DAILY PRN PO CONSTIPATION; Start at 21:30 Sodium Biphosphate/ Sodium Phosphate (Fleet Enema) 133 ml DAILY PRN [place] CONSTIPATION; Start 10/05/16 at 21:30 Famotidine (Pepcid) 20 mg DAILY PO Last administered on 10/23/16 09:22; Admin Dose 20 MG; Start 10/06/16 at 09:00 Lorazepam (Ativan) 0.5 mg Q6H PRN IV ANXIETY Last administered on 10/13/16 21: 38; Admin Dose 0.5 MG; Start 10/05/16 at 21:30 Hydralazine HCl (Apresoline) 10 mg Q6H PRN IV ELEVATED SYSTOLIC BP Last administered on 10/22/16 23:09; Admin Dose 10 MG; Start 10/05/16 at 21:30 Clonidine (Catapres) 0.1 mg Q6H PRN PO ELEVATED SYSTOLIC BP; Start 10/05/16 at 21:30 Nitroglycerin (Nitroglycerin (Sl Tab) 0.4 Mg) 1 tab Q5M PRN SL ANGINA; Start at 21:30 Aspirin 325 mg 325 mg DAILY PO Last administered on 10/23/16 09:22; Admin Dose 325 MG; Start 10/06/16 at 09:00 Diltiazem HCl (Cardizem-D5W 125 Mg/125 ml Drip) 125 ml @ 5 mls/hr TITRATE IV ; Start 10/05/16 at 22:00 Diagnostic Test (Pha) (Accucheck) 1 ea 02 XX Last administered on 10/23/16 02: 41; Admin Dose 1 EA; Start 10/07/16 at 02:00 Zolpidem Tartrate (Ambien) 5 mg HS PRN PO INSOMNIA Last administered on 20:39; Admin Dose 5 MG; Start 10/06/16 at 01:00 Miscellaneous Information 1 ea NOTE XX ; Start 10/06/16 at 01:00 Glucose (Glutose) 15 gm Q15M PRN PO DECREASED GLUCOSE; Start 10/06/16 at 01:00 Glucose (Glutose) 22.5 gm Q15M PRN PO DECREASED GLUCOSE; Start 10/06/16 at 01: 00 Dextrose (D50w Syringe) 25 ml Q15M PRN IV DECREASED GLUCOSE; Start 10/06/16 at 01:00 Dextrose (D50w Syringe) 50 ml Q15M PRN IV DECREASED GLUCOSE; Start 10/06/16 at 01:00 Glucagon (Glucagen) 1 mg Q15M PRN IM DECREASED GLUCOSE; Start 10/06/16 at 01:00 Glucose (Glutose) 15 gm Q15M PRN BUCCAL DECREASED GLUCOSE; Start 10/06/16 at 01 :00 Cyanocobalamin (Vitamin B12) 1,000 mcg DAILY PO Last administered on 10/23/16 09:22; Admin Dose 1,000 MCG; Start 10/06/16 at 09:00 Folic Acid (Folic Acid) 0.8 mg DAILY PO Last administered on 10/23/16 09:23; Admin Dose 0.8 MG; Start 10/06/16 at 09:00 Triamcinolone Acetonide (Kenalog 0.1% Oint) 1 applic BID TOP Last administered on 10/23/16 09:30; Admin Dose 1 APPLIC; Start 10/06/16 at 09:00 Ferrous Sulfate (Slow Fe) 142 mg DAILY PO Last administered on 10/23/16 09:21; Admin Dose 142 MG; Start 10/07/16 at 09:00 Magnesium Oxide (Mag-Ox 400) 400 mg DAILY PO Last administered on 10/23/16 09: 22; Admin Dose 400 MG; Start 10/06/16 at 13:00 Clopidogrel Bisulfate (plaVIX) 75 mg DAILY PO Last administered on 10/23/16 09: 22; Admin Dose 75 MG; Start 10/06/16 at 12:00 Atorvastatin Calcium (Lipitor) 40 mg QHS PO Last administered on 10/22/16 20:32 ; Admin Dose 40 MG; Start 10/06/16 at 21:00 Zolpidem Tartrate (Ambien) 10 mg QHS PRN PO INSOMNIA Last administered on 21:44; Admin Dose 10 MG; Start 10/06/16 at 16:30 Insulin Glargine (Lantus) 10 unit HS SC Last administered on 10/22/16 20:35; Admin Dose 10 UNIT; Start 10/07/16 at 21:00 Linagliptin (Tradjenta) 5 mg DAILY PO Last administered on 10/23/16 09:23; Admin Dose 5 MG; Start 10/07/16 at 17:00 Heparin Sodium (Porcine) (Heparin (5000 Units/0.5 ml)) 5,000 unit BID SC Last administered on 10/23/16 09:24; Admin Dose 5,000 UNIT; Start 10/10/16 at 12:00 Nifedipine 60 mg 60 mg QHS PO Last administered on 10/22/16 20:33; Admin Dose 60 MG; Start 10/10/16 at 21:00 Piperacillin Sod/ Tazobactam Sod (Zosyn 2.25gm/ 50ml (Pmx)) 50 ml @ 100 mls/hr Q8 IVPB Last administered on 10/23/16 13:48; Admin Dose 100 MLS/HR; Start 10/11 at 11:00 Acetaminophen (Tylenol Tab) 650 mg Q4H PRN PO NON-CARDIAC PAIN LEVEL (1-3) Last administered on 10/21/16 09:33; Admin Dose 650 MG; Start 10/13/16 at 11:00 Morphine Sulfate (morphine) 2 mg Q2H PRN IV FOR NON CARDIAC PAIN (4-10); Start 10/13/16 at 11:00 Al Hydrox/Mg Hydrox/Simethicone (Mag-Al Plus) 30 ml Q4H PRN PO GASTROINTESTINAL UPSET; Start 10/13/16 at 11:00 Ondansetron HCl (Zofran Inj) 4 mg Q4H PRN IV NAUSEA AND/OR VOMITING; Start at 11:00 Lidocaine (Xylocaine 1% (Mpf)) 30 ml ONCE PRN INJ ANESTHESIA; Start 10/15/16 at 14:30 Benazepril HCl (Lotensin) 40 mg BID PO Last administered on 10/23/16 09:27; Admin Dose 40 MG; Start 10/15/16 at 21:00 Nifedipine (Procardia Xl) 60 mg AM PO Last administered on 10/23/16 09:26; Admin Dose 60 MG; Start 10/20/16 at 09:00 Metoprolol Succinate (Toprol Xl) 50 mg BID PO Last administered on 10/23/16 09: 26; Admin Dose 50 MG; Start 10/20/16 at 21:00 Lorazepam (Ativan) 0.5 mg HS PO ; Start 10/23/16 at 21:00 Miscellaneous Information 1 ea NOTE XX ; Start 10/23/16 at 17:00; Stop 10/23/16 at 23:45 JANAE ELDRIDGE Oct 23, 2016 17:49
--- NOTE | 2016-10-23 17:52 | CONS ---
Date/Time of Note Date/Time of Note DATE: 10/23/16 TIME: 17:51 Assessment/Plan Assessment/Plan Chief Complaint/Hosp Course SUBJECTIVE: No acute events, no fevers ANTIMICROBIALS: Zosyn. Indwelling: R virgilio Simpson 10/19/16 PHYSICAL EXAMINATION: GENERAL: This is well-developed, elderly man, who is alert, in no distress. HEENT: Head atraumatic, normocephalic. Sclerae anicteric. Buccal mucosa pink. NECK: Supple, trachea midline. CHEST: Chest rise is symmetrical. Breath sounds clear. HEART: S1, S2. ABDOMEN: Soft, bowel tones present. EXTREMITIES: Without cyanosis. ASSESSMENT: 1. Bacteremia, likely secondary to infected PermCath==> s/p dc'd. 2. Anemia. 3. Atrial fibrillation. 4. Diabetes. 5. Pneumonia. PLAN: Remains stable, repeat bld cx negative, continue Zosyn, HD per renal, ok for permacath placement [facility] staff Problems: Consultation Date/Type/Reason Admit Date/Time Oct 05, 2016 at 21:04 Type of Consultation: id Referring Provider: JANAE ELDRIDGE Exam/Review of Systems Vital Signs Vitals Vital Signs Date Time Temp Pulse Resp B/P Pulse Ox O2 Delivery O2 Flow Rate FiO2 10/23/16 07:25 97.5 76 18 144/82 98 10/21/16 16:25 21 10/19/16 13:45 Room Air Intake and Output 10/22/16 10/22/16 10/23/16 15:00 23:00 07:00 Intake Total 50 ml 960 ml 650 ml Balance 50 ml 960 ml 650 ml Results Result Diagram: 10/22/16 0540 10/23/16 0510 Results 24 hrs Laboratory Tests Test 10/22/16 20:28 10/23/16 02:09 10/23/16 05:10 10/23/16 07:35 Bedside Glucose 210 86 108 Sodium Level 138 Potassium Level 4.0 Chloride Level 98 Carbon Dioxide Level 22 Anion Gap 22 H Blood Urea Nitrogen 50 H Creatinine 6.63 H Glucose Level 102 # Calcium Level 9.0 Test 10/23/16 11:33 10/23/16 16:52 Bedside Glucose 167 201 Medications Medications Current Medications Acetaminophen/ Hydrocodone Bitart ([place] (5/325)) 1 tab Q6H PRN PO MODERATE PAIN LEVEL 4-6; Start 3/15/17 at 21:30 Morphine Sulfate (morphine) 2 mg Q4H PRN IV SEVERE PAIN LEVEL 7-10; Start 10/05 at 21:30 Docusate Sodium (Colace) 100 mg Q12H PRN PO CONSTIPATION; Start 10/05/16 at 21: 30 Magnesium Hydroxide (Milk Of Mag) 30 ml DAILY PRN PO CONSTIPATION; Start at 21:30 Sodium Biphosphate/ Sodium Phosphate (Fleet Enema) [address] CONSTIPATION; Start 10/05/16 at 21:30 Famotidine (Pepcid) 20 mg DAILY PO Last administered on 10/23/16 09:22; Admin Dose 20 MG; Start 10/06/16 at 09:00 Lorazepam (Ativan) 0.5 mg Q6H PRN IV ANXIETY Last administered on 10/13/16 21: 38; Admin Dose 0.5 MG; Start 10/05/16 at 21:30 Hydralazine HCl (Apresoline) 10 mg Q6H PRN IV ELEVATED SYSTOLIC BP Last administered on 10/22/16 23:09; Admin Dose 10 MG; Start 10/05/16 at 21:30 Clonidine (Catapres) 0.1 mg Q6H PRN PO ELEVATED SYSTOLIC BP; Start 10/05/16 at 21:30 Nitroglycerin (Nitroglycerin (Sl Tab) 0.4 Mg) 1 tab Q5M PRN SL ANGINA; Start at 21:30 Aspirin 325 mg 325 mg DAILY PO Last administered on 10/23/16 09:22; Admin Dose 325 MG; Start 10/06/16 at 09:00 Diltiazem HCl (Cardizem-D5W 125 Mg/125 ml Drip) 125 ml @ 5 mls/hr TITRATE IV ; Start 10/05/16 at 22:00 Diagnostic Test (Pha) (Accucheck) 1 ea 02 XX Last administered on 10/23/16 02: 41; Admin Dose 1 EA; Start 10/07/16 at 02:00 Zolpidem Tartrate (Ambien) 5 mg HS PRN PO INSOMNIA Last administered on 20:39; Admin Dose 5 MG; Start 10/06/16 at 01:00 Miscellaneous Information 1 ea NOTE XX ; Start 10/06/16 at 01:00 Glucose (Glutose) 15 gm Q15M PRN PO DECREASED GLUCOSE; Start 10/06/16 at 01:00 Glucose (Glutose) 22.5 gm Q15M PRN PO DECREASED GLUCOSE; Start 10/06/16 at 01: 00 Dextrose (D50w Syringe) 25 ml Q15M PRN IV DECREASED GLUCOSE; Start 10/06/16 at 01:00 Dextrose (D50w Syringe) 50 ml Q15M PRN IV DECREASED GLUCOSE; Start 10/06/16 at 01:00 Glucagon (Glucagen) 1 mg Q15M PRN IM DECREASED GLUCOSE; Start 10/06/16 at 01:00 Glucose (Glutose) 15 gm Q15M PRN BUCCAL DECREASED GLUCOSE; Start 10/06/16 at 01 :00 Cyanocobalamin (Vitamin B12) 1,000 mcg DAILY PO Last administered on 10/23/16 09:22; Admin Dose 1,000 MCG; Start 10/06/16 at 09:00 Folic Acid (Folic Acid) 0.8 mg DAILY PO Last administered on 10/23/16 09:23; Admin Dose 0.8 MG; Start 10/06/16 at 09:00 Triamcinolone Acetonide (Kenalog 0.1% Oint) 1 applic BID TOP Last administered on 10/23/16 09:30; Admin Dose 1 APPLIC; Start 10/06/16 at 09:00 Ferrous Sulfate (Slow Fe) 142 mg DAILY PO Last administered on 10/23/16 09:21; Admin Dose 142 MG; Start 10/07/16 at 09:00 Magnesium Oxide (Mag-Ox 400) 400 mg DAILY PO Last administered on 10/23/16 09: 22; Admin Dose 400 MG; Start 10/06/16 at 13:00 Clopidogrel Bisulfate (plaVIX) 75 mg DAILY PO Last administered on 10/23/16 09: 22; Admin Dose 75 MG; Start 10/06/16 at 12:00 Atorvastatin Calcium (Lipitor) 40 mg QHS PO Last administered on 10/22/16 20:32 ; Admin Dose 40 MG; Start 10/06/16 at 21:00 Zolpidem Tartrate (Ambien) 10 mg QHS PRN PO INSOMNIA Last administered on 21:44; Admin Dose 10 MG; Start 10/06/16 at 16:30 Insulin Glargine (Lantus) 10 unit HS SC Last administered on 10/22/16 20:35; Admin Dose 10 UNIT; Start 10/07/16 at 21:00 Linagliptin (Tradjenta) 5 mg DAILY PO Last administered on 10/23/16 09:23; Admin Dose 5 MG; Start 10/07/16 at 17:00 Heparin Sodium (Porcine) (Heparin (5000 Units/0.5 ml)) 5,000 unit BID SC Last administered on 10/23/16 09:24; Admin Dose 5,000 UNIT; Start 10/10/16 at 12:00 Nifedipine 60 mg 60 mg QHS PO Last administered on 10/22/16 20:33; Admin Dose 60 MG; Start 10/10/16 at 21:00 Piperacillin Sod/ Tazobactam Sod (Zosyn 2.25gm/ 50ml (Pmx)) 50 ml @ 100 mls/hr Q8 IVPB Last administered on 10/23/16 13:48; Admin Dose 100 MLS/HR; Start 10/11 at 11:00 Acetaminophen (Tylenol Tab) 650 mg Q4H PRN PO NON-CARDIAC PAIN LEVEL (1-3) Last administered on 10/21/16 09:33; Admin Dose 650 MG; Start 10/13/16 at 11:00 Morphine Sulfate (morphine) 2 mg Q2H PRN IV FOR NON CARDIAC PAIN (4-10); Start 10/13/16 at 11:00 Al Hydrox/Mg Hydrox/Simethicone (Mag-Al Plus) 30 ml Q4H PRN PO GASTROINTESTINAL UPSET; Start 10/13/16 at 11:00 Ondansetron HCl (Zofran Inj) 4 mg Q4H PRN IV NAUSEA AND/OR VOMITING; Start at 11:00 Lidocaine (Xylocaine 1% (Mpf)) 30 ml ONCE PRN INJ ANESTHESIA; Start 10/15/16 at 14:30 Benazepril HCl (Lotensin) 40 mg BID PO Last administered on 10/23/16 09:27; Admin Dose 40 MG; Start 10/15/16 at 21:00 Nifedipine (Procardia Xl) 60 mg AM PO Last administered on 10/23/16 09:26; Admin Dose 60 MG; Start 10/20/16 at 09:00 Metoprolol Succinate (Toprol Xl) 50 mg BID PO Last administered on 10/23/16t 09: 26; Admin Dose 50 MG; Start 10/20/16 at 21:00 Lorazepam (Ativan) 0.5 mg HS PO ; Start 10/23/16 at 21:00 Miscellaneous Information 1 ea NOTE XX ; Start 10/23/16 at 17:00; Stop 10/23/16 at 23:45 ALEXA BERRY NP Oct 23, 2016 17:52
[2016-10-23] MEDS ORDERED: HEPARIN 1000 UNITS/ML 10 ML INJ CATHETER ONE (18:30)
[2016-10-23] MEDS: ACETAMINOPHEN 325 MG TAB PO PRN (19:59)
[2016-10-23] MEDS: INSULIN GLARGINE [LANtus] 3 ML PEN SC SCH (21:00)
[2016-10-23] MEDS: ATORVASTATIN 40 MG TAB PO SCH (21:11)
[2016-10-23] MEDS: LORAZEPAM 0.5 MG TAB PO SCH (21:12)
[2016-10-23] MEDS: EPOETIN 10000 UNITS/1 ML INJ (ESRD) SC SCH (21:13)
[2016-10-23] MEDS: ZOLPIDEM 5 MG TAB PO PRN ×2 (21:53→22:00)
[2016-10-24] VITALS (15 sets, daily range): BP systolic 102–177; BP diastolic 62–90; PULSE 64–75; RESP 14–18
[2016-10-24] MEDS: ACCU-CHEK XX SCH (02:00)
[2016-10-24] MEDS: PIPER-TAZO 2.25 GM (PMX) 50 ML IVPB SCH ×3 (05:55→22:00)
[2016-10-24 06:12] LABS: POTASSIUM 4.1 mmol/L (3.5-5.1)
[2016-10-24 06:15] LABS: CREATININE 5.59 mg/dl (0.61-1.24)
[2016-10-24 06:16] LABS: CALCIUM 8.8 mg/dl (8.4-10.2)
[2016-10-24] MEDS: INSULIN ASPART [NOVOLOG] 3 ML PEN SC SCH ×4 (08:00→21:00)
[2016-10-24] MEDS: BENAZEPRIL 40 MG TAB PO SCH ×2 (08:04→21:54)
[2016-10-24] MEDS: NIFEdipine (XL) 60 MG TAB PO SCH ×2 (08:04→21:54)
[2016-10-24] MEDS: METOPROLOL (XL) 50 MG TAB PO SCH ×2 (08:05→21:55)
[2016-10-24] MEDS: FOLIC ACID 0.4 MG TAB PO SCH ×2 (08:07→12:53)
[2016-10-24] MEDS: MAGNESIUM OXIDE 400 MG TAB PO SCH ×2 (08:07→12:53)
[2016-10-24] MEDS: FAMOTIDINE 20 MG TAB PO SCH ×2 (08:07→12:52)
[2016-10-24] MEDS: ASPIRIN (EC) 325 MG TAB PO SCH (08:07)
[2016-10-24] MEDS: CYANOCOBALAMIN 500 MCG TAB PO SCH ×2 (08:08→12:53)
[2016-10-24] MEDS: CLOPIDOGREL 75 MG TAB PO SCH (08:08)
[2016-10-24] MEDS: HEPARIN 5,000 UNIT/0.5 ML SYG SC SCH ×2 (08:08→21:55)
[2016-10-24] MEDS: LINAGLIPTIN 5 MG TABLET PO SCH ×2 (08:08→12:52)
[2016-10-24] MEDS: FERROUS SULFATE (SR) 142 MG TAB PO SCH ×2 (08:08→12:53)
[2016-10-24] MEDS ORDERED: SOD CHLORIDE 0.9% 500 ML ONE ×2 (08:56→09:38)
[2016-10-24] MEDS ORDERED: LIDOCAINE 1% (MDV) 20 ML INJ ONE (08:56)
[2016-10-24] MEDS ORDERED: HEPARIN 1000 UNITS/ML 10 ML INJ ONE (08:56)
[2016-10-24] MEDS ORDERED: MIDAZOLAM 1 MG/ML 2 ML INJ ONE (09:38)
[2016-10-24] MEDS ORDERED: CEFAZOLIN 1 GM/50 ML (PMX) 50 ML IVPB ONE (09:38)
[2016-10-24] MEDS ORDERED: FENTAnyl 50 MCG/ML VIAL ONE (09:38)
--- NOTE | 2016-10-24 10:43 | RADRPT ---
PROCEDURE: Ultrasound guidance for placement of needle in right internal jugular vein. CLINICAL INDICATION: Venous access. TECHNIQUE: Prior to the procedure, informed consent was obtained. Risks including bleeding, infection, and pneu mothorax were explained to the patient. The patient understood and was willing to proceed. A procedu ral pause was performed. The patient's name, date of , and procedure to be performed were verif ied. The central line was inserted with all elements of maximal sterile barrier technique. All of th e following were used: head covering, facial mask, sterile gown, sterile gloves, a large sterile she et, hand hygiene, and 2% chlorhexidine for cutaneous antisepsis. The right neck and anterior/super ior chest wall was prepped and draped in usual sterile fashion. Limited sonography of the right neck was then performed. Noted is a patent right internal jugular ve in. Ultrasound images were recorded and stored in the patient's medical record. Following the local injection of Xylocaine, the right internal jugular vein was punctured under sono graphic guidance with a 20-gauge needle through which a 0.018 inch floppy tip guidewire was advanced into the superior vena cava. The patient tolerated the procedure well. The remainder of the proce dure was performed and dictated under separate cover. COMPARISON: None. FINDINGS: The ultrasound images demonstrate a patent right internal jugular vein. The subsequent images demon strate the needle entering the right internal jugular vein. IMPRESSION: 1. Ultrasound guidance for a needle placement in right internal jugular vein. RPTAT: QQ .Glen Walton MD, Date Time Electronically viewed and signed by .Glen Walton MD, on 10/24/2016 10:42 .R/
[2016-10-24] MEDS: TRIAMCINOLONE ACET 0.1% 15 GM OINT TOP SCH ×2 (11:57→21:59)
--- NOTE | 2016-10-24 12:16 | PN ---
DATE: SUBJECTIVE: The patient is stable, had hemodialysis yesterday and tolerated it well. The patient i s pending PermCath placement today. No other events noted. OBJECTIVE: VITAL SIGNS: Blood pressure is 177/90, respiration 18, pulse 70, temperature 98.1. HEENT: Head is normocephalic. NECK: Supple. HEART: Regular rate. LUNGS: Show diminished breath sounds at the base. ABDOMEN: Soft, nontender to palpation, no rebound or guarding. EXTREMITIES: Negative for clubbing, cyanosis, no edema. DERMATOLOGIC: No rashes. MUSCULOSKELETAL: No joint effusions. NEUROLOGIC: No change in exam. MEDICATIONS: The patient's medications have been reviewed. LABORATORY DATA: Shows sodium 132, potassium 4.1, BUN 41, creatinine 5.59. ASSESSMENT AND PLAN: 1. End-stage renal disease. Plan for hemodialysis today with potassium, 3 K bath, calcium 2.5. 2. Access. The patient currently has a Calvin catheter, will need a PermCath placement which is b [facility] scheduled for today. 3. Sepsis, secondary to underlying infection. The patient is clinically improving. Continue curre nt antibiotic regimen. 4. Coagulopathy. Continue medical management. 5. Anemia of chronic disease. Continue to monitor hemoglobin and hematocrit levels. 6. Atrial fibrillation, rate controlled. Continue current treatment plan. 7. Diabetes, continue Accu-Cheks and sliding scale. 8. Hypertension. Continue current blood pressure regimen. 9. Status post respiratory failure. 10. Hyponatremia. Will continue dialysis on a 140 sodium bath. Dictated By: NOEMI BOTELLO/CHANTALE Conf#: [id number] DID#: [id number]
--- NOTE | 2016-10-24 12:26 | RADRPT ---
PROCEDURE: PLACEMENT OF RIGHT INTERNAL JUGULAR VENOUS TUNNELED DIALYSIS CATHETER. CLINICAL INDICATION: Renal failure. TECHNIQUE: Prior to the procedure, informed consent was obtained. Risks including bleeding, infection, and pneu mothorax were explained to the patient. The patient understood and was willing to proceed. A procedu ral pause was performed. The patient's name, date of , and procedure to be performed were verif ied. The central line was inserted with all elements of maximal sterile barrier technique. All of th e following were used: head covering, facial mask, sterile gown, sterile gloves, a large sterile she et, hand hygiene, and 2% chlorhexidine for cutaneous antisepsis. The right neck and anterior/super ior chest wall was prepped and draped in usual sterile fashion. Limited sonography of the right neck was then performed. Noted is a patent right internal jugular ve in. Ultrasound images were recorded and stored in the patient's medical record. Following the local injection of Xylocaine, the right internal jugular vein was punctured under sono graphic guidance with a 20-gauge needle through which a 0.018 inch floppy tip guidewire was advanced into the superior vena cava. The tract was dilated to 5 Lao and the wire was then replaced with a 0.035 in Amplatz guidewire. A tunnel was then created from the anterior lateral aspect of the sup erior right chest wall to the puncture site in the neck and the catheter was pulled through the trac t. Serial dilatation was then performed and a 16 Lao peel away sheath was introduced. The 14.5 Lao 23cm tip to cuff Angiodynamics BioFlo DuraMax dialysis catheter was advanced through the 16 F rench peel-away sheath. The tip of the catheter was confirmed in position within the right atrium. T he peel-away sheath was removed. The 2 ports were each flushed with 2.3 ml of 1:1000 heparin. The c atheter was secured to the skin with 2-0 silk. The wound in the neck was closed with 4-0 Vicryl suture using subcuticular running technique. The site was dressed. The patient tolerated the proce dure well. COMPARISON: None. FINDINGS: Final radiographic images demonstrate the tip of the catheter in the upper right atrium. A total of 0.1 minutes of fluoroscopy time was used. The ultrasound images demonstrate the needle entering e jugular vein. Ultrasound images were recorded and stored in the patient's medical record. IMPRESSION: 1. Percutaneous insertion of right internal jugular dialysis tunneled dialysis catheter under fluoro scopic and sonographic guidance. RPTAT: QQ .Glen Walton MD, MD Date Time Electronically viewed and signed by .Glen Walton MD, MD on 10/24/2016 12:26 .R/
[2016-10-24] MEDS: ACETAMINOPHEN 325 MG TAB PO PRN (12:52)
--- NOTE | 2016-10-24 14:07 | CONS ---
Date/Time of Note Date/Time of Note DATE: 10/24/16 TIME: 14:04 Assessment/Plan Assessment/Plan Chief Complaint/Hosp Course IMPRESSION: 1. Atrial fibrillation with rapid ventricular response-now in SR 2. Abnormal electrocardiogram with inferolateral ST depressions. 3. Positive troponin, assess significance. 4. Cardiomyopathy, decreased left ventricular ejection fraction last approximately 45% by outside hospital paperwork at [facility] 09/09. Now approx 25% by echo here 5. History of PTCA and stent placement at [facility] recently.-per notes had PCI at [facility](08/2016)after being thought to be poor surgical candidate but cath report not sent from [place]. Had originally transferred from [facility] where was cathed and found to have 3VD after suffering VT.-Now s/p [facility] this admit with moderate disease of distal LMN and mid LAD but otherwise patent vessels and stents 6. Renal failure. 7. Hypertension-Currently improved 8. Shortness of breath. 9. Generalized weakness. 10. Diabetes mellitus. 11. Anemia-worsening 12.CHF-systolic acute on chronic 14.Bacteremia-GNR persistent-most recent bld cx's now negative 15. Dizziness Recc: -Tele -Continue JUDY/CCB/BB -Continue asa/plavix/statin -HD for volume removal -SQ heparin -Continue abx's and f/u cx data -Check orthostatics Problems: Consultation Date/Type/Reason Admit Date/Time Oct 05, 2016 at 21:04 Initial Consult Date 10/06/2016 Type of Consultation: Cardiology Reason for Consultation AF/CHF Referring Provider: JANAE ELDRIDGE Exam/Review of Systems Vital Signs Vitals Vital Signs Date Time Temp Pulse Resp B/P Pulse Ox O2 Delivery O2 Flow Rate FiO2 10/24/16 13:10 97.0 72 18 131/62 98 Room Air 10/24/16 10:35 1.0 10/21/16 16:25 21 Intake and Output 10/23/16 10/23/16 10/24/16 15:00 23:00 07:00 Intake Total 50 ml 1250 ml 100 ml Output Total 2500 ml Balance 50 ml -1250 ml 100 ml Exam Review of Systems: CONSTITUTIONAL: No fevers, chills. PULMONARY: No sob CARDIOVASCULAR: No chest pain/palpitations GASTROINTESTINAL: No nausea/vomiting. GENITOURINARY: No hematuria/dysuria. MUSCULOSKELETAL: No myagias/arthalgias. PSYCHIATRIC: The patient denies depression. NEUROLOGIC: C/O dizziness Constitutional: alert Psych: no complaints Head: normocephalic ENMT: mucosa pink and moist Neck: jvd, supple Respiratory: diminished breath sounds Cardiovascular: irregular rhythm Gastrointestinal: non-tender, soft Musculoskeletal: muscle tone (normal) Extremities: edema (none) Neurological: other Results Result Diagram: 10/22/16 0540 10/24/16 0525 Results 24 hrs Laboratory Tests Test 10/23/16 16:52 10/23/16 21:08 10/24/16 05:25 10/24/16 06:01 Bedside Glucose 201 157 111 Sodium Level 132 L Potassium Level 4.1 Chloride Level 99 Carbon Dioxide Level 22 Anion Gap 15 # Blood Urea Nitrogen 41 H Creatinine 5.59 H Glucose Level 119 Calcium Level 8.8 Test 10/24/16 11:44 Bedside Glucose 127 Medications Medications Current Medications Acetaminophen/ Hydrocodone Bitart ([place] (5/325)) 1 tab Q6H PRN PO MODERATE PAIN LEVEL 4-6; Start 10/05/16 at 21:30 Morphine Sulfate (morphine) 2 mg Q4H PRN IV SEVERE PAIN LEVEL 7-10; Start 10/05 at 21:30 Docusate Sodium (Colace) 100 mg Q12H PRN PO CONSTIPATION; Start 10/05/16 at 21: 30 Magnesium Hydroxide (Milk Of Mag) 30 ml DAILY PRN PO CONSTIPATION; Start at 21:30 Sodium Biphosphate/ Sodium Phosphate (Fleet Enema) 133 ml DAILY PRN [place] CONSTIPATION; Start 10/05/16 at 21:30 Famotidine (Pepcid) 20 mg DAILY PO Last administered on 10/24/16 12:52; Admin Dose 20 MG; Start 10/06/16 at 09:00 Lorazepam (Ativan) 0.5 mg Q6H PRN IV ANXIETY Last administered on 10/13/16 21: 38; Admin Dose 0.5 MG; Start 10/05/16 at 21:30 Hydralazine HCl (Apresoline) 10 mg Q6H PRN IV ELEVATED SYSTOLIC BP Last administered on 10/22/16 23:09; Admin Dose 10 MG; Start 10/05/16 at 21:30 Clonidine (Catapres) 0.1 mg Q6H PRN PO ELEVATED SYSTOLIC BP; Start 10/05/16 at 21:30 Nitroglycerin (Nitroglycerin (Sl Tab) 0.4 Mg) 1 tab Q5M PRN SL ANGINA; Start at 21:30 Aspirin 325 mg 325 mg DAILY PO Last administered on 10/23/16 09:22; Admin Dose 325 MG; Start 10/06/16 at 09:00 Diltiazem HCl (Cardizem-D5W 125 Mg/125 ml Drip) 125 ml @ 5 mls/hr TITRATE IV ; Start 10/05/16 at 22:00 Diagnostic Test (Pha) (Accucheck) 1 ea 02 XX Last administered on 10/23/16 02: 41; Admin Dose 1 EA; Start 10/07/16 at 02:00 Zolpidem Tartrate (Ambien) 5 mg HS PRN PO INSOMNIA Last administered on 20:39; Admin Dose 5 MG; Start 10/06/16 at 01:00 Miscellaneous Information 1 ea NOTE XX ; Start 10/06/16 at 01:00 Glucose (Glutose) 15 gm Q15M PRN PO DECREASED GLUCOSE; Start 10/06/16 at 01:00 Glucose (Glutose) 22.5 gm Q15M PRN PO DECREASED GLUCOSE; Start 10/06/16 at 01: 00 Dextrose (D50w Syringe) 25 ml Q15M PRN IV DECREASED GLUCOSE; Start 10/06/16 at 01:00 Dextrose (D50w Syringe) 50 ml Q15M PRN IV DECREASED GLUCOSE; Start 10/06/16 at 01:00 Glucagon (Glucagen) 1 mg Q15M PRN IM DECREASED GLUCOSE; Start 10/06/16 at 01:00 Glucose (Glutose) 15 gm Q15M PRN BUCCAL DECREASED GLUCOSE; Start 10/06/16 at 01 :00 Cyanocobalamin (Vitamin B12) 1,000 mcg DAILY PO Last administered on 10/24/16 12:53; Admin Dose 1,000 MCG; Start 10/06/16 at 09:00 Folic Acid (Folic Acid) 0.8 mg DAILY PO Last administered on 10/24/16 12:53; Admin Dose 0.8 MG; Start 10/06/16 at 09:00 Triamcinolone Acetonide (Kenalog 0.1% Oint) 1 applic BID TOP Last administered on 10/23/16 21:58; Admin Dose 1 APPLIC; Start 10/06/16 at 09:00 Ferrous Sulfate (Slow Fe) 142 mg DAILY PO Last administered on 10/24/16 12:53; Admin Dose 142 MG; Start 10/07/16 at 09:00 Magnesium Oxide (Mag-Ox 400) 400 mg DAILY PO Last administered on 10/24/16 12: 53; Admin Dose 400 MG; Start 10/06/16 at 13:00 Clopidogrel Bisulfate (plaVIX) 75 mg DAILY PO Last administered on 10/23/16 09: 22; Admin Dose 75 MG; Start 10/06/16 at 12:00 Atorvastatin Calcium (Lipitor) 40 mg QHS PO Last administered on 10/23/16 21:11 ; Admin Dose 40 MG; Start 10/06/16 at 21:00 Zolpidem Tartrate (Ambien) 10 mg QHS PRN PO INSOMNIA Last administered on 22:00; Admin Dose 10 MG; Start 10/06/16 at 16:30 Insulin Glargine (Lantus) 10 unit HS SC Last administered on 10/22/16 20:35; Admin Dose 10 UNIT; Start 10/07/16 at 21:00 Linagliptin (Tradjenta) 5 mg DAILY PO Last administered on 10/24/16 12:52; Admin Dose 5 MG; Start 10/07/16 at 17:00 Heparin Sodium (Porcine) (Heparin (5000 Units/0.5 ml)) 5,000 unit BID SC Last administered on 10/23/16 09:24; Admin Dose 5,000 UNIT; Start 10/10/16 at 12:00 Nifedipine 60 mg 60 mg QHS PO Last administered on 10/23/16 21:12; Admin Dose 60 MG; Start 10/10/16 at 21:00 Piperacillin Sod/ Tazobactam Sod (Zosyn 2.25gm/ 50ml (Pmx)) 50 ml @ 100 mls/hr Q8 IVPB Last administered on 10/24/16 13:05; Admin Dose 100 MLS/HR; Start 10/11 at 11:00 Acetaminophen (Tylenol Tab) 650 mg Q4H PRN PO NON-CARDIAC PAIN LEVEL (1-3) Last administered on 10/24/16 12:52; Admin Dose 650 MG; Start 10/13/16 at 11:00 Morphine Sulfate (morphine) 2 mg Q2H PRN IV FOR NON CARDIAC PAIN (4-10); Start 10/13/16 at 11:00 Al Hydrox/Mg Hydrox/Simethicone (Mag-Al Plus) 30 ml Q4H PRN PO GASTROINTESTINAL UPSET; Start 10/13/16 at 11:00 Ondansetron HCl (Zofran Inj) 4 mg Q4H PRN IV NAUSEA AND/OR VOMITING; Start at 11:00 Lidocaine (Xylocaine 1% (Mpf)) 30 ml ONCE PRN INJ ANESTHESIA; Start 10/15/16 at 14:30 Benazepril HCl (Lotensin) 40 mg BID PO Last administered on 10/24/16 08:04; Admin Dose 40 MG; Start 10/15/16 at 21:00 Nifedipine (Procardia Xl) 60 mg AM PO Last administered on 10/24/16 08:04; Admin Dose 60 MG; Start 10/20/16 at 09:00 Metoprolol Succinate (Toprol Xl) 50 mg BID PO Last administered on 10/24/16 08: 05; Admin Dose 50 MG; Start 10/20/16 at 21:00 Lorazepam (Ativan) 0.5 mg HS PO Last administered on 10/23/16 21:12; Admin Dose 0.5 MG; Start 10/23/16 at 21:00 AIYANA LANG Oct 24, 2016 14:06
--- NOTE | 2016-10-24 14:25 | CONS ---
Date/Time of Note Date/Time of Note DATE: 10/24/16 TIME: 14:24 Assessment/Plan Assessment/Plan Chief Complaint/Hosp Course SUBJECTIVE: No acute events, no fevers ANTIMICROBIALS: Zosyn. Indwelling: R fem Calvin 10/19/16, RSC permacath 10/24/16 PHYSICAL EXAMINATION: GENERAL: This is well-developed, elderly man, who is alert, in no distress. HEENT: Head atraumatic, normocephalic. Sclerae anicteric. Buccal mucosa pink. NECK: Supple, trachea midline. CHEST: Chest rise is symmetrical. Breath sounds clear. HEART: S1, S2. ABDOMEN: Soft, bowel tones present. EXTREMITIES: Without cyanosis. ASSESSMENT: 1. S/p line sepsis/bacteremia==> s/p new permacath 2. Anemia. 3. Atrial fibrillation. 4. Diabetes. 5. Pneumonia. PLAN: Remains stable, s/p permacath, continue Zosyn for couple more days [facility] staff Problems: Consultation Date/Type/Reason Admit Date/Time Oct 05, 2016 at 21:04 Type of Consultation: ID Referring Provider: JANAE ELDRIDGE Exam/Review of Systems Vital Signs Vitals Vital Signs Date Time Temp Pulse Resp B/P Pulse Ox O2 Delivery O2 Flow Rate FiO2 10/24/16 13:10 97.0 72 18 131/62 98 Room Air 10/24/16 10:35 1.0 10/21/16 16:25 21 Intake and Output 10/23/16 10/23/16 10/24/16 15:00 23:00 07:00 Intake Total 50 ml 1250 ml 100 ml Output Total 2500 ml Balance 50 ml -1250 ml 100 ml Results Result Diagram: 10/22/16 0540 10/24/16 0525 Results 24 hrs Laboratory Tests Test 10/23/16 16:52 10/23/16 21:08 10/24/16 05:25 10/24/16 06:01 Bedside Glucose 201 157 111 Sodium Level 132 L Potassium Level 4.1 Chloride Level 99 Carbon Dioxide Level 22 Anion Gap 15 # Blood Urea Nitrogen 41 H Creatinine 5.59 H Glucose Level 119 Calcium Level 8.8 Test 10/24/16 11:44 Bedside Glucose 127 Medications Medications Current Medications Acetaminophen/ Hydrocodone Bitart ([place] (5/325)) 1 tab Q6H PRN PO MODERATE PAIN LEVEL 4-6; Start 10/05/16 at 21:30 Morphine Sulfate (morphine) 2 mg Q4H PRN IV SEVERE PAIN LEVEL 7-10; Start 10/05 at 21:30 Docusate Sodium (Colace) 100 mg Q12H PRN PO CONSTIPATION; Start 10/05/16 at 21: 30 Magnesium Hydroxide (Milk Of Mag) 30 ml DAILY PRN PO CONSTIPATION; Start at 21:30 Sodium Biphosphate/ Sodium Phosphate (Fleet Enema) 133 ml DAILY PRN [place] CONSTIPATION; Start 10/05/16 at 21:30 Famotidine (Pepcid) 20 mg DAILY PO Last administered on 10/24/16 12:52; Admin Dose 20 MG; Start 10/06/16 at 09:00 Lorazepam (Ativan) 0.5 mg Q6H PRN IV ANXIETY Last administered on 10/13/16 21: 38; Admin Dose 0.5 MG; Start 10/05/16 at 21:30 Hydralazine HCl (Apresoline) 10 mg Q6H PRN IV ELEVATED SYSTOLIC BP Last administered on 10/22/16 23:09; Admin Dose 10 MG; Start 10/05/16 at 21:30 Clonidine (Catapres) 0.1 mg Q6H PRN PO ELEVATED SYSTOLIC BP; Start 10/05/16 at 21:30 Nitroglycerin (Nitroglycerin (Sl Tab) 0.4 Mg) 1 tab Q5M PRN SL ANGINA; Start at 21:30 Aspirin 325 mg 325 mg DAILY PO Last administered on 10/23/16 09:22; Admin Dose 325 MG; Start 10/06/16 at 09:00 Diltiazem HCl (Cardizem-D5W 125 Mg/125 ml Drip) 125 ml @ 5 mls/hr TITRATE IV ; Start 10/05/16 at 22:00 Diagnostic Test (Pha) (Accucheck) 1 ea 02 XX Last administered on 10/23/16 02: 41; Admin Dose 1 EA; Start 10/07/16 at 02:00 Zolpidem Tartrate (Ambien) 5 mg HS PRN PO INSOMNIA Last administered on 20:39; Admin Dose 5 MG; Start 10/06/16 at 01:00 Miscellaneous Information 1 ea NOTE XX ; Start 10/06/16 at 01:00 Glucose (Glutose) 15 gm Q15M PRN PO DECREASED GLUCOSE; Start 10/06/16 at 01:00 Glucose (Glutose) 22.5 gm Q15M PRN PO DECREASED GLUCOSE; Start 10/06/16 at 01: 00 Dextrose (D50w Syringe) 25 ml Q15M PRN IV DECREASED GLUCOSE; Start 10/06/16 at 01:00 Dextrose (D50w Syringe) 50 ml Q15M PRN IV DECREASED GLUCOSE; Start 10/06/16 at 01:00 Glucagon (Glucagen) 1 mg Q15M PRN IM DECREASED GLUCOSE; Start 10/06/16 at 01:00 Glucose (Glutose) 15 gm Q15M PRN BUCCAL DECREASED GLUCOSE; Start 10/06/16 at 01 :00 Cyanocobalamin (Vitamin B12) 1,000 mcg DAILY PO Last administered on 10/24/16 12:53; Admin Dose 1,000 MCG; Start 10/06/16 at 09:00 Folic Acid (Folic Acid) 0.8 mg DAILY PO Last administered on 10/24/16 12:53; Admin Dose 0.8 MG; Start 10/06/16 at 09:00 Triamcinolone Acetonide (Kenalog 0.1% Oint) 1 applic BID TOP Last administered on 10/23/16 21:58; Admin Dose 1 APPLIC; Start 10/06/16 at 09:00 Ferrous Sulfate (Slow Fe) 142 mg DAILY PO Last administered on 10/24/16 12:53; Admin Dose 142 MG; Start 10/07/16 at 09:00 Magnesium Oxide (Mag-Ox 400) 400 mg DAILY PO Last administered on 10/24/16 12: 53; Admin Dose 400 MG; Start 10/06/16 at 13:00 Clopidogrel Bisulfate (plaVIX) 75 mg DAILY PO Last administered on 10/23/16 09: 22; Admin Dose 75 MG; Start 10/06/16 at 12:00 Atorvastatin Calcium (Lipitor) 40 mg QHS PO Last administered on 10/23/16 21:11 ; Admin Dose 40 MG; Start 10/06/16 at 21:00 Zolpidem Tartrate (Ambien) 10 mg QHS PRN PO INSOMNIA Last administered on 22:00; Admin Dose 10 MG; Start 10/06/16 at 16:30 Insulin Glargine (Lantus) 10 unit HS SC Last administered on 10/22/16 20:35; Admin Dose 10 UNIT; Start 10/07/16 at 21:00 Linagliptin (Tradjenta) 5 mg DAILY PO Last administered on 10/24/16 12:52; Admin Dose 5 MG; Start 10/07/16 at 17:00 Heparin Sodium (Porcine) (Heparin (5000 Units/0.5 ml)) 5,000 unit BID SC Last administered on 10/23/16 09:24; Admin Dose 5,000 UNIT; Start 10/10/16 at 12:00 Nifedipine 60 mg 60 mg QHS PO Last administered on 10/23/16 21:12; Admin Dose 60 MG; Start 10/10/16 at 21:00 Piperacillin Sod/ Tazobactam Sod (Zosyn 2.25gm/ 50ml (Pmx)) 50 ml @ 100 mls/hr Q8 IVPB Last administered on 10/24/16 13:05; Admin Dose 100 MLS/HR; Start 10/11 at 11:00 Acetaminophen (Tylenol Tab) 650 mg Q4H PRN PO NON-CARDIAC PAIN LEVEL (1-3) Last administered on 10/24/16 12:52; Admin Dose 650 MG; Start 10/13/16 at 11:00 Morphine Sulfate (morphine) 2 mg Q2H PRN IV FOR NON CARDIAC PAIN (4-10); Start 10/13/16 at 11:00 Al Hydrox/Mg Hydrox/Simethicone (Mag-Al Plus) 30 ml Q4H PRN PO GASTROINTESTINAL UPSET; Start 10/13/16 at 11:00 Ondansetron HCl (Zofran Inj) 4 mg Q4H PRN IV NAUSEA AND/OR VOMITING; Start at 11:00 Lidocaine (Xylocaine 1% (Mpf)) 30 ml ONCE PRN INJ ANESTHESIA; Start 10/15/16 at 14:30 Benazepril HCl (Lotensin) 40 mg BID PO Last administered on 10/24/16 08:04; Admin Dose 40 MG; Start 10/15/16 at 21:00 Nifedipine (Procardia Xl) 60 mg AM PO Last administered on 4/3/17at 08:04; Admin Dose 60 MG; Start 10/20/16 at 09:00 Metoprolol Succinate (Toprol Xl) 50 mg BID PO Last administered on 10/24/16 08: 05; Admin Dose 50 MG; Start 10/20/16 at 21:00 Lorazepam (Ativan) 0.5 mg HS PO Last administered on 10/23/16 21:12; Admin Dose 0.5 MG; Start 10/23/16 at 21:00 ALEXA BERRY NP Oct 24, 2016 14:25
--- NOTE | 2016-10-24 15:31 | PN ---
Date/Time of Note Date/Time of Note DATE: 10/24/16 TIME: 15:14 Assessment/Plan VTE Prophylaxis VTE Prophylaxis Intervention: heparin Lines/Catheters IV Catheter Type (from [facility]): nilo catheter Urinary Cath still in place: No Assessment/Plan Assessment/Plan 1. RALSTONIA PICKETTII bacteremia, considered HD line infection, permacath replaced on 10/24/2016, on zosyn 2. Acute respiratory distress secondary to volume overload with underlying end- stage renal disease and congestive heart failure, improved 3. Atrial fibrillation with rapid ventricular response, converted back to sinus 4. CAD with s/p PCI/stent, NSTEMI type 2 s/p LHC 10/13/16 with findings: * Moderate obstruction of distal left main but with excellent flow and moderate obstruction of mid LAD with excellent flow. * Widely patent LAD and circumflex stents. * Elevated left heart filling pressures. * No significant aortic stenosis by gradient. 5. End-stage renal disease on hemodialysis 6. Acute on chronic systolic congestive heart failure with Ischemic CM and ejection fraction of 25% 7. Diabetes mellitus type 2. Hemoglobin 6.3. 8. Anemia of chronic disease.. 9. Hypertensive urgency, resolved. 10. DVT prophylaxis: heparin Subjective 24 Hr Interval Summary Free Text/Dictation new HD catheter in today on right chest Exam/Review of Systems Vital Signs Vitals Vital Signs Date Time Temp Pulse Resp B/P Pulse Ox O2 Delivery O2 Flow Rate FiO2 10/24/16 13:10 97.0 72 18 131/62 98 Room Air 10/24/16 10:35 1.0 10/21/16 16:25 21 Intake and Output 10/23/16 10/23/16 10/24/16 15:00 23:00 07:00 Intake Total 50 ml 1250 ml 100 ml Output Total 2500 ml Balance 50 ml -1250 ml 100 ml Exam Constitutional: alert, oriented, well developed Psych: nl mood/affect, no complaints Head: atraumatic, normocephalic Eyes: EOMI, nl conjunctiva, nl lids ENMT: nl external ears & nose, nl lips & teeth, nl nasal mucosa & septum Neck: non-tender, supple Respiratory: clear to auscultation, normal air movement, No congested cough, No crackles/rales, No diminished breath sounds, No intercostal retraction, No labored breathing, No other, No respirations, No tactile fremitus, No wheezing Cardiovascular: nl pulses, regular rate and rhythm, No S3, No S4, No bruits, No diastolic murmur, No edema, No gallop, No irregular rhythm, No jugular venous distention (JVD), No murmurs/extra sounds, No other, No rub, No systolic murmur Gastrointestinal: nl liver, spleen, non-tender, soft, No ascites, No bowel sounds, No distended, No firm, No hepatomegaly, No mass , No other, No rebound or guarding, No splenomegaly, No surgical scars, No tender Musculoskeletal: nl extremities to inspection Extremities: normal pulses, No calf tenderness, No clubbing, No cyanosis, No edema, No other, No palpable cord, No pitting pedal edema, No tenderness Neurological: ENTRY ANALYST II-XII intact, nl mental status, nl speech, nl strength Skin: nl turgor Lymph: nl lymph nodes Results Result Diagram: 10/22/16 0540 10/24/16 0525 Results 24 hrs Laboratory Tests Test 10/23/16 16:52 10/23/16 21:08 10/24/16 05:25 10/24/16 06:01 Bedside Glucose 201 157 111 Sodium Level 132 L Potassium Level 4.1 Chloride Level 99 Carbon Dioxide Level 22 Anion Gap 15 # Blood Urea Nitrogen 41 H Creatinine 5.59 H Glucose Level 119 Calcium Level 8.8 Test 10/24/16 11:44 Bedside Glucose 127 Medications Medications Current Medications Acetaminophen/ Hydrocodone Bitart ([place] (5/325)) 1 tab Q6H PRN PO MODERATE PAIN LEVEL 4-6; Start 10/05/16 at 21:30 Morphine Sulfate (morphine) 2 mg Q4H PRN IV SEVERE PAIN LEVEL 7-10; Start 10/05 at 21:30 Docusate Sodium (Colace) 100 mg Q12H PRN PO CONSTIPATION; Start 10/05/16 at 21: 30 Magnesium Hydroxide (Milk Of Mag) 30 ml DAILY PRN PO CONSTIPATION; Start at 21:30 Sodium Biphosphate/ Sodium Phosphate (Fleet Enema) 133 ml DAILY PRN [place] CONSTIPATION; Start 10/05/16 at 21:30 Famotidine (Pepcid) 20 mg DAILY PO Last administered on 10/24/16t 12:52; Admin Dose 20 MG; Start 10/06/16 at 09:00 Lorazepam (Ativan) 0.5 mg Q6H PRN IV ANXIETY Last administered on 10/13/16 21: 38; Admin Dose 0.5 MG; Start 10/05/16 at 21:30 Hydralazine HCl (Apresoline) 10 mg Q6H PRN IV ELEVATED SYSTOLIC BP Last administered on 10/22/16 23:09; Admin Dose 10 MG; Start 10/05/16 at 21:30 Clonidine (Catapres) 0.1 mg Q6H PRN PO ELEVATED SYSTOLIC BP; Start 10/05/16 at 21:30 Nitroglycerin (Nitroglycerin (Sl Tab) 0.4 Mg) 1 tab Q5M PRN SL ANGINA; Start at 21:30 Aspirin 325 mg 325 mg DAILY PO Last administered on 10/23/16 09:22; Admin Dose 325 MG; Start 10/06/16 at 09:00 Diltiazem HCl (Cardizem-D5W 125 Mg/125 ml Drip) 125 ml @ 5 mls/hr TITRATE IV ; Start 10/05/16 at 22:00 Diagnostic Test (Pha) (Accucheck) 1 ea 02 XX Last administered on 10/23/16 02: 41; Admin Dose 1 EA; Start 10/07/16 at 02:00 Zolpidem Tartrate (Ambien) 5 mg HS PRN PO INSOMNIA Last administered on 20:39; Admin Dose 5 MG; Start 10/06/16 at 01:00 Miscellaneous Information 1 ea NOTE XX ; Start 10/06/16 at 01:00 Glucose (Glutose) 15 gm Q15M PRN PO DECREASED GLUCOSE; Start 10/06/16 at 01:00 Glucose (Glutose) 22.5 gm Q15M PRN PO DECREASED GLUCOSE; Start 10/06/16 at 01: 00 Dextrose (D50w Syringe) 25 ml Q15M PRN IV DECREASED GLUCOSE; Start 10/06/16 at 01:00 Dextrose (D50w Syringe) 50 ml Q15M PRN IV DECREASED GLUCOSE; Start 10/06/16 at 01:00 Glucagon (Glucagen) 1 mg Q15M PRN IM DECREASED GLUCOSE; Start 10/06/16 at 01:00 Glucose (Glutose) 15 gm Q15M PRN BUCCAL DECREASED GLUCOSE; Start 10/06/16 at 01 :00 Cyanocobalamin (Vitamin B12) 1,000 mcg DAILY PO Last administered on 10/24/16 12:53; Admin Dose 1,000 MCG; Start 10/06/16 at 09:00 Folic Acid (Folic Acid) 0.8 mg DAILY PO Last administered on 10/24/16 12:53; Admin Dose 0.8 MG; Start 10/06/16 at 09:00 Triamcinolone Acetonide (Kenalog 0.1% Oint) 1 applic BID TOP Last administered on 10/23/16 21:58; Admin Dose 1 APPLIC; Start 10/06/16 at 09:00 Ferrous Sulfate (Slow Fe) 142 mg DAILY PO Last administered on 10/24/16 12:53; Admin Dose 142 MG; Start 10/07/16 at 09:00 Magnesium Oxide (Mag-Ox 400) 400 mg DAILY PO Last administered on 10/24/16 12: 53; Admin Dose 400 MG; Start 10/06/16 at 13:00 Clopidogrel Bisulfate (plaVIX) 75 mg DAILY PO Last administered on 10/23/16 09: 22; Admin Dose 75 MG; Start 10/06/16 at 12:00 Atorvastatin Calcium (Lipitor) 40 mg QHS PO Last administered on 10/23/16 21:11 ; Admin Dose 40 MG; Start 10/06/16 at 21:00 Zolpidem Tartrate (Ambien) 10 mg QHS PRN PO INSOMNIA Last administered on 22:00; Admin Dose 10 MG; Start 10/06/16 at 16:30 Insulin Glargine (Lantus) 10 unit HS SC Last administered on 10/22/16 20:35; Admin Dose 10 UNIT; Start 10/07/16 at 21:00 Linagliptin (Tradjenta) 5 mg DAILY PO Last administered on 10/24/16 12:52; Admin Dose 5 MG; Start 10/07/16 at 17:00 Heparin Sodium (Porcine) (Heparin (5000 Units/0.5 ml)) 5,000 unit BID SC Last administered on 10/23/16 09:24; Admin Dose 5,000 UNIT; Start 10/10/16 at 12:00 Nifedipine 60 mg 60 mg QHS PO Last administered on 10/23/16 21:12; Admin Dose 60 MG; Start 10/10/16 at 21:00 Piperacillin Sod/ Tazobactam Sod (Zosyn 2.25gm/ 50ml (Pmx)) 50 ml @ 100 mls/hr Q8 IVPB Last administered on 10/24/16 13:05; Admin Dose 100 MLS/HR; Start 10/11 at 11:00 Acetaminophen (Tylenol Tab) 650 mg Q4H PRN PO NON-CARDIAC PAIN LEVEL (1-3) Last administered on 10/24/16 12:52; Admin Dose 650 MG; Start 10/13/16 at 11:00 Morphine Sulfate (morphine) 2 mg Q2H PRN IV FOR NON CARDIAC PAIN (4-10); Start 10/13/16 at 11:00 Al Hydrox/Mg Hydrox/Simethicone (Mag-Al Plus) 30 ml Q4H PRN PO GASTROINTESTINAL UPSET; Start 10/13/16 at 11:00 Ondansetron HCl (Zofran Inj) 4 mg Q4H PRN IV NAUSEA AND/OR VOMITING; Start at 11:00 Lidocaine (Xylocaine 1% (Mpf)) 30 ml ONCE PRN INJ ANESTHESIA; Start 10/15/16 at 14:30 Benazepril HCl (Lotensin) 40 mg BID PO Last administered on 10/24/16 08:04; Admin Dose 40 MG; Start 10/15/16 at 21:00 Nifedipine (Procardia Xl) 60 mg AM PO Last administered on 10/24/16 08:04; Admin Dose 60 MG; Start 10/20/16 at 09:00 Metoprolol Succinate (Toprol Xl) 50 mg BID PO Last administered on 10/24/16 08: 05; Admin Dose 50 MG; Start 10/20/16 at 21:00 Lorazepam (Ativan) 0.5 mg HS PO Last administered on 10/23/16 21:12; Admin Dose 0.5 MG; Start 10/23/16 at 21:00 SHAR GARLAND MD Oct 24, 2016 15:24
[2016-10-24] MEDS ORDERED: SOD CHLORIDE 0.9% 250 ML IV ONE (20:00)
[2016-10-24] MEDS: INSULIN GLARGINE [LANtus] 3 ML PEN SC SCH (21:00)
[2016-10-24] MEDS: ATORVASTATIN 40 MG TAB PO SCH (21:53)
[2016-10-24] MEDS: LORAZEPAM 0.5 MG TAB PO SCH (21:53)
[2016-10-24] MEDS: ZOLPIDEM 5 MG TAB PO PRN ×2 (22:43)
[2016-10-25] VITALS (9 sets, daily range): BP systolic 136–161; BP diastolic 75–90; PULSE 67–72; RESP 18
[2016-10-25] MEDS: ACCU-CHEK XX SCH (02:00)
[2016-10-25 05:43] LABS: ADD SCAN DIFF NO
[2016-10-25 06:01] LABS: POTASSIUM 4.4 mmol/L (3.5-5.1)
[2016-10-25 06:03] LABS: CREATININE 7.19 mg/dl (0.61-1.24)
[2016-10-25 06:04] LABS: CALCIUM 8.9 mg/dl (8.4-10.2)
[2016-10-25 06:16] LABS: BASOPHIL # 0.1 10^3/ul (0.0-0.1); BASOPHILS % 0.9 % (0.0-2.0); EOSINOPHILS # 0.2 10^3/ul (0.0-0.5); EOSINOPHILS % 2.5 % (0.0-7.0); HEMATOCRIT 29.9 % (42.0-52.0); HEMOGLOBIN 9.5 g/dl (14.0-18.0); LYMPHOCYTES # 2.3 10^3/ul (0.8-2.9); MEAN CORPUSCULAR HEMOGLOBIN 27.2 pg (29.0-33.0); MEAN CORPUSCULAR HGB CONC 31.8 g/dl (32.0-37.0); MEAN CORPUSCULAR VOLUME 85.7 fl (82.0-101.0); MEAN PLATELET VOLUME 11.1 fl (7.4-10.4); MONOCYTE # 0.8 10^3/ul (0.3-0.9); NEUTROPHIL # 6.2 10^3/ul (1.6-7.5); NEUTROPHILS % 64.2 % (39.0-77.0); PLATELET COUNT 293 10^3/UL (140-415); RED BLOOD COUNT 3.49 10^6/ul (4.70-6.10); RED CELL DISTRIBUTION WIDTH 16.9 % (11.5-14.5); WHITE BLOOD COUNT 9.7 10^3/ul (4.8-10.8)
[2016-10-25] MEDS: PIPER-TAZO 2.25 GM (PMX) 50 ML IVPB SCH ×3 (06:35→21:36)
[2016-10-25] MEDS: INSULIN ASPART [NOVOLOG] 3 ML PEN SC SCH ×4 (08:00→20:57)
[2016-10-25] MEDS: BENAZEPRIL 40 MG TAB PO SCH ×2 (09:00→21:02)
[2016-10-25] MEDS: TRIAMCINOLONE ACET 0.1% 15 GM OINT TOP SCH ×2 (09:00→21:10)
[2016-10-25] MEDS: FOLIC ACID 0.4 MG TAB PO SCH (09:08)
[2016-10-25] MEDS: ASPIRIN (EC) 325 MG TAB PO SCH (09:08)
[2016-10-25] MEDS: FAMOTIDINE 20 MG TAB PO SCH (09:08)
[2016-10-25] MEDS: MAGNESIUM OXIDE 400 MG TAB PO SCH (09:08)
[2016-10-25] MEDS: LINAGLIPTIN 5 MG TABLET PO SCH (09:09)
[2016-10-25] MEDS: CLOPIDOGREL 75 MG TAB PO SCH (09:09)
[2016-10-25] MEDS: FERROUS SULFATE (SR) 142 MG TAB PO SCH (09:09)
[2016-10-25] MEDS: CYANOCOBALAMIN 500 MCG TAB PO SCH (09:09)
[2016-10-25] MEDS: METOPROLOL (XL) 50 MG TAB PO SCH ×2 (09:15→21:02)
[2016-10-25] MEDS: NIFEdipine (XL) 60 MG TAB PO SCH ×2 (09:15→21:02)
[2016-10-25] MEDS: HEPARIN 5,000 UNIT/0.5 ML SYG SC SCH ×2 (09:26→21:09)
--- NOTE | 2016-10-25 10:48 | PN ---
DATE: 10/25/2016 SUBJECTIVE: The patient had a PermCath placed yesterday without any complications. The patient is scheduled for dialysis today. OBJECTIVE: VITAL SIGNS: Blood pressure 154/74, respirations 18, pulse 74, temperature 98.4. HEENT: Head is normocephalic. NECK: Supple. HEART: Regular rate. LUNGS: Show diminished breath sounds at the bases. ABDOMEN: Soft, nontender to palpation. No rebound or guarding. DERMATOLOGIC: No rashes. MUSCULOSKELETAL: No joint effusions. NEUROLOGIC: No focal deficits. LABORATORY DATA: Shows sodium 133, potassium 4.4, chloride 99, BUN 55, creatinine 7.19. White coun t 9.7, hemoglobin 9.5, hematocrit 29.9, platelet count is 293. ASSESSMENT AND PLAN: 1. End-stage renal disease. The patient is scheduled for dialysis today for 3 hours, 3K bath, calc ium 2.5. 2. Access. The patient is status post PermCath placement. 3. Sepsis secondary to line infection. The patient clinically improving. Continue current antibio tic regimen. 4. Anemia of chronic disease. Continue to monitor hemoglobin and hematocrit levels. 5. Atrial fibrillation, rate controlled. Continue medical management. 6. Diabetes. Continue Accu-Cheks and insulin sliding scale. 7. Hypertension. Continue current blood pressure regimen. 8. Status post respiratory failure. 9. Hyponatremia. Continue dialysis 140 sodium bath. Dictated By: NOEMI BOTELLO/CHANTALE Conf#: [id number] DID#: [id number]
--- NOTE | 2016-10-25 13:35 | CONS ---
Date/Time of Note Date/Time of Note DATE: 10/25/16 TIME: 13:34 Assessment/Plan Assessment/Plan Chief Complaint/Hosp Course SUBJECTIVE: No acute events, in HD, nad, no fevers ANTIMICROBIALS: Zosyn. Indwelling: R fem Nilo 10/19/16, RSC permacath 10/24/16 PHYSICAL EXAMINATION: GENERAL: This is well-developed, elderly man, who is alert, in no distress. HEENT: Head atraumatic, normocephalic. Sclerae anicteric. Buccal mucosa pink. NECK: Supple, trachea midline. CHEST: Chest rise is symmetrical. Breath sounds clear. HEART: S1, S2. ABDOMEN: Soft, bowel tones present. EXTREMITIES: Without cyanosis. ASSESSMENT: 1. S/p line sepsis/bacteremia==> s/p new permacath 2. Anemia. 3. Atrial fibrillation. 4. Diabetes. 5. Pneumonia. PLAN: Remains stable, dc Zosyn in am, pending dc femoral nilo RUBIN RN Problems: Consultation Date/Type/Reason Admit Date/Time Oct 05, 2016 at 21:04 Type of Consultation: ID Referring Provider: JANAE EDLRIDGE Exam/Review of Systems Vital Signs Vitals Vital Signs Date Time Temp Pulse Resp B/P Pulse Ox O2 Delivery O2 Flow Rate FiO2 10/25/16 08:45 98.4 74 18 154/75 98 10/24/16 13:10 Room Air 10/24/16 10:35 1.0 10/21/16 16:25 21 Intake and Output 10/24/16 10/24/16 10/25/16 15:00 23:00 07:00 Intake Total 150 ml 700 ml 350 ml Balance 150 ml 700 ml 350 ml Results Result Diagram: 10/25/16 0525 10/25/16 0525 Results 24 hrs Laboratory Tests Test 10/24/16 16:48 10/24/16 20:33 10/25/16 05:25 10/25/16 07:52 Bedside Glucose 238 H 180 154 White Blood Count 9.7 # Red Blood Count 3.49 L Hemoglobin 9.5 L Hematocrit 29.9 L Mean Corpuscular Volume 85.7 Mean Corpuscular Hemoglobin 27.2 L Mean Corpuscular Hemoglobin Concent 31.8 L Red Cell Distribution Width 16.9 H Platelet Count 293 Mean Platelet Volume 11.1 H Neutrophils % 64.2 Lymphocytes % 24.0 Monocytes % 8.0 Eosinophils % 2.5 Basophils % 0.9 Nucleated Red Blood Cells % 0.0 Neutrophils # 6.2 Lymphocytes # 2.3 Monocytes # 0.8 Eosinophils # 0.2 Basophils # 0.1 Nucleated Red Blood Cells # 0.0 Sodium Level 133 L Potassium Level 4.4 Chloride Level 99 Carbon Dioxide Level 20 L Anion Gap 18 H Blood Urea Nitrogen 55 H Creatinine 7.19 H Glucose Level 135 Calcium Level 8.9 Test 10/25/16 13:21 Bedside Glucose 179 Medications Medications Current Medications Acetaminophen/ Hydrocodone Bitart ([place] (5/325)) 1 tab Q6H PRN PO MODERATE PAIN LEVEL 4-6; Start 10/05/16 at 21:30 Morphine Sulfate (morphine) 2 mg Q4H PRN IV SEVERE PAIN LEVEL 7-10; Start 10/05 at 21:30 Docusate Sodium (Colace) 100 mg Q12H PRN PO CONSTIPATION; Start 10/05/16 at 21: 30 Magnesium Hydroxide (Milk Of Mag) 30 ml DAILY PRN PO CONSTIPATION; Start at 21:30 Sodium Biphosphate/ Sodium Phosphate (Fleet Enema) 133 ml DAILY PRN [place] CONSTIPATION; Start 10/05/16 at 21:30 Famotidine (Pepcid) 20 mg DAILY PO Last administered on 10/25/16 09:08; Admin Dose 20 MG; Start 10/06/16 at 09:00 Lorazepam (Ativan) 0.5 mg Q6H PRN IV ANXIETY Last administered on 10/13/16 21: 38; Admin Dose 0.5 MG; Start 10/05/16 at 21:30 Hydralazine HCl (Apresoline) 10 mg Q6H PRN IV ELEVATED SYSTOLIC BP Last administered on 10/22/16 23:09; Admin Dose 10 MG; Start 10/05/16 at 21:30 Clonidine (Catapres) 0.1 mg Q6H PRN PO ELEVATED SYSTOLIC BP; Start 10/05/16 at 21:30 Nitroglycerin (Nitroglycerin (Sl Tab) 0.4 Mg) 1 tab Q5M PRN SL ANGINA; Start at 21:30 Aspirin 325 mg 325 mg DAILY PO Last administered on 10/25/16 09:08; Admin Dose 325 MG; Start 10/06/16 at 09:00 Diltiazem HCl (Cardizem-D5W 125 Mg/125 ml Drip) 125 ml @ 5 mls/hr TITRATE IV ; Start 10/05/16 at 22:00 Diagnostic Test (Pha) (Accucheck) 1 ea 02 XX Last administered on 10/23/16 02: 41; Admin Dose 1 EA; Start 10/07/16 at 02:00 Zolpidem Tartrate (Ambien) 5 mg HS PRN PO INSOMNIA Last administered on 22:43; Admin Dose 5 MG; Start 10/06/16 at 01:00 Miscellaneous Information 1 ea NOTE XX ; Start 10/06/16 at 01:00 Glucose (Glutose) 15 gm Q15M PRN PO DECREASED GLUCOSE; Start 10/06/16 at 01:00 Glucose (Glutose) 22.5 gm Q15M PRN PO DECREASED GLUCOSE; Start 10/06/16 at 01: 00 Dextrose (D50w Syringe) 25 ml Q15M PRN IV DECREASED GLUCOSE; Start 10/06/16 at 01:00 Dextrose (D50w Syringe) 50 ml Q15M PRN IV DECREASED GLUCOSE; Start 10/06/16 at 01:00 Glucagon (Glucagen) 1 mg Q15M PRN IM DECREASED GLUCOSE; Start 10/06/16 at 01:00 Glucose (Glutose) 15 gm Q15M PRN BUCCAL DECREASED GLUCOSE; Start 10/06/16 at 01 :00 Cyanocobalamin (Vitamin B12) 1,000 mcg DAILY PO Last administered on 10/25/16 09:09; Admin Dose 1,000 MCG; Start 10/06/16 at 09:00 Folic Acid (Folic Acid) 0.8 mg DAILY PO Last administered on 10/25/16 09:08; Admin Dose 0.8 MG; Start 10/06/16 at 09:00 Triamcinolone Acetonide (Kenalog 0.1% Oint) 1 applic BID TOP Last administered on 10/24/16 21:59; Admin Dose 1 APPLIC; Start 10/06/16 at 09:00 Ferrous Sulfate (Slow Fe) 142 mg DAILY PO Last administered on 10/25/16 09:09; Admin Dose 142 MG; Start 10/07/16 at 09:00 Magnesium Oxide (Mag-Ox 400) 400 mg DAILY PO Last administered on 10/25/16 09: 08; Admin Dose 400 MG; Start 10/06/16 at 13:00 Clopidogrel Bisulfate (plaVIX) 75 mg DAILY PO Last administered on 10/25/16 09: 09; Admin Dose 75 MG; Start 10/06/16 at 12:00 Atorvastatin Calcium (Lipitor) 40 mg QHS PO Last administered on 10/24/16 21:53 ; Admin Dose 40 MG; Start 10/06/16 at 21:00 Zolpidem Tartrate (Ambien) 10 mg QHS PRN PO INSOMNIA Last administered on 22:43; Admin Dose 10 MG; Start 10/06/16 at 16:30 Insulin Glargine (Lantus) 10 unit HS SC Last administered on 10/22/16 20:35; Admin Dose 10 UNIT; Start 10/07/16 at 21:00 Linagliptin (Tradjenta) 5 mg DAILY PO Last administered on 10/25/16 09:09; Admin Dose 5 MG; Start 10/07/16 at 17:00 Heparin Sodium (Porcine) (Heparin (5000 Units/0.5 ml)) 5,000 unit BID SC Last administered on 10/25/16 09:26; Admin Dose 5,000 UNIT; Start 10/10/16 at 12:00 Nifedipine 60 mg 60 mg QHS PO Last administered on 10/24/16 21:54; Admin Dose 60 MG; Start 10/10/16 at 21:00 Piperacillin Sod/ Tazobactam Sod (Zosyn 2.25gm/ 50ml (Pmx)) 50 ml @ 100 mls/hr Q8 IVPB Last administered on 10/25/16 06:35; Admin Dose 100 MLS/HR; Start 10/11 at 11:00 Acetaminophen (Tylenol Tab) 650 mg Q4H PRN PO NON-CARDIAC PAIN LEVEL (1-3) Last administered on 10/24/16 12:52; Admin Dose 650 MG; Start 10/13/16 at 11:00 Morphine Sulfate (morphine) 2 mg Q2H PRN IV FOR NON CARDIAC PAIN (4-10); Start 10/13/16 at 11:00 Al Hydrox/Mg Hydrox/Simethicone (Mag-Al Plus) 30 ml Q4H PRN PO GASTROINTESTINAL UPSET; Start 10/13/16 at 11:00 Ondansetron HCl (Zofran Inj) 4 mg Q4H PRN IV NAUSEA AND/OR VOMITING; Start at 11:00 Lidocaine (Xylocaine 1% (Mpf)) 30 ml ONCE PRN INJ ANESTHESIA; Start 10/15/16 at 14:30 Benazepril HCl (Lotensin) 40 mg BID PO Last administered on 10/24/16 21:54; Admin Dose 40 MG; Start 10/15/16 at 21:00 Nifedipine (Procardia Xl) 60 mg AM PO Last administered on 10/25/16 09:15; Admin Dose 60 MG; Start 10/20/16 at 09:00 Metoprolol Succinate (Toprol Xl) 50 mg BID PO Last administered on 10/25/16 09: 15; Admin Dose 50 MG; Start 10/20/16 at 21:00 Lorazepam (Ativan) 0.5 mg HS PO Last administered on 10/24/16 21:53; Admin Dose 0.5 MG; Start 10/23/16 at 21:00 ALEXA BERRY NP Oct 25, 2016 13:35
--- NOTE | 2016-10-25 15:42 | PN ---
Date/Time of Note Date/Time of Note DATE: 10/25/16 TIME: 15:41 Assessment/Plan VTE Prophylaxis VTE Prophylaxis Intervention: heparin Lines/Catheters IV C[facility]ter Type [facility] permacath Urinary Cath still in place: No Assessment/Plan Assessment/Plan 1. RALSTONIA PICKETTII bacteremia, considered HD line infection, permacath replaced on 10/24/2016, on zosyn 2. Acute respiratory distress secondary to volume overload with underlying end- stage renal disease and congestive heart failure, improved 3. Atrial fibrillation with rapid ventricular response, converted back to sinus 4. CAD with s/p PCI/stent, NSTEMI type 2 s/p LHC 10/13/16 with findings: * Moderate obstruction of distal left main but with excellent flow and moderate obstruction of mid LAD with excellent flow. * Widely patent LAD and circumflex stents. * Elevated left heart filling pressures. * No significant aortic stenosis by gradient. 5. End-stage renal disease on hemodialysis 6. Acute on chronic systolic congestive heart failure with Ischemic CM and ejection fraction of 25% 7. Diabetes mellitus type 2. Hemoglobin 6.3. 8. Anemia of chronic disease.. 9. Hypertensive urgency, resolved. 10. DVT prophylaxis: heparin Subjective 24 Hr Interval Summary Free Text/Dictation afebrile Exam/Review of Systems Vital Signs Vitals Vital Signs Date Time Temp Pulse Resp B/P Pulse Ox O2 Delivery O2 Flow Rate FiO2 10/25/16 13:00 69 10/25/16 12:50 18 10/25/16 08:45 98.4 154/75 98 10/24/16 13:10 Room Air 10/24/16 10:35 1.0 10/21/16 16:25 21 Intake and Output 10/24/16 10/24/16 10/25/16 15:00 23:00 07:00 Intake Total 150 ml 700 ml 350 ml Balance 150 ml 700 ml 350 ml Exam Constitutional: alert, oriented, well developed Psych: nl mood/affect, no complaints Head: atraumatic, normocephalic Eyes: EOMI, PERRL, nl conjunctiva, nl lids ENMT: nl external ears & nose, nl lips & teeth, nl nasal mucosa & septum Neck: non-tender, supple Respiratory: clear to auscultation, normal air movement, No congested cough, No crackles/rales, No diminished breath sounds, No intercostal retraction, No labored breathing, No other, No respirations, No tactile fremitus, No wheezing Cardiovascular: nl pulses, regular rate and rhythm, No S3, No S4, No bruits, No diastolic murmur, No edema, No gallop, No irregular rhythm, No jugular venous distention (JVD), No murmurs/extra sounds, No other, No rub, No systolic murmur Gastrointestinal: nl liver, spleen, non-tender, soft, No ascites, No bowel sounds, No distended, No firm, No hepatomegaly, No mass , No other, No rebound or guarding, No splenomegaly, No surgical scars, No tender Musculoskeletal: nl extremities to inspection Extremities: normal pulses, No calf tenderness, No clubbing, No cyanosis, No edema, No other, No palpable cord, No pitting pedal edema, No tenderness Neurological: [employer] II-XII intact, nl mental status, nl speech, nl strength Skin: nl turgor Lymph: nl lymph nodes Results Result Diagram: 10/25/16 0525 10/25/16 0525 Results 24 hrs Laboratory Tests Test 10/24/16 16:48 10/24/16 20:33 10/25/16 05:25 10/25/16 07:52 Bedside Glucose 238 H 180 154 White Blood Count 9.7 # Red Blood Count 3.49 L Hemoglobin 9.5 L Hematocrit 29.9 L Mean Corpuscular Volume 85.7 Mean Corpuscular Hemoglobin 27.2 L Mean Corpuscular Hemoglobin Concent 31.8 L Red Cell Distribution Width 16.9 H Platelet Count 293 Mean Platelet Volume 11.1 H Neutrophils % 64.2 Lymphocytes % 24.0 Monocytes % 8.0 Eosinophils % 2.5 Basophils % 0.9 Nucleated Red Blood Cells % 0.0 Neutrophils # 6.2 Lymphocytes # 2.3 Monocytes # 0.8 Eosinophils # 0.2 Basophils # 0.1 Nucleated Red Blood Cells # 0.0 Sodium Level 133 L Potassium Level 4.4 Chloride Level 99 Carbon Dioxide Level 20 L Anion Gap 18 H Blood Urea Nitrogen 55 H Creatinine 7.19 H Glucose Level 135 Calcium Level 8.9 Test 10/25/16 13:21 Bedside Glucose 179 Medications Medications Current Medications Acetaminophen/ Hydrocodone Bitart ([place] (5/325)) 1 tab Q6H PRN PO MODERATE PAIN LEVEL 4-6; Start 3/15/17 at 21:30 Morphine Sulfate (morphine) 2 mg Q4H PRN IV SEVERE PAIN LEVEL 7-10; Start 10/05 at 21:30 Docusate Sodium (Colace) 100 mg Q12H PRN PO CONSTIPATION; Start 10/05/16 at 21: 30 Magnesium Hydroxide (Milk Of Mag) 30 ml DAILY PRN PO CONSTIPATION; Start at 21:30 Sodium Biphosphate/ Sodium Phosphate (Fleet Enema) 133 ml DAILY PRN [place] CONSTIPATION; Start 10/05/16 at 21:30 Famotidine (Pepcid) 20 mg DAILY PO Last administered on 10/25/16 09:08; Admin Dose 20 MG; Start 10/06/16 at 09:00 Lorazepam (Ativan) 0.5 mg Q6H PRN IV ANXIETY Last administered on 10/13/16 21: 38; Admin Dose 0.5 MG; Start 10/05/16 at 21:30 Hydralazine HCl (Apresoline) 10 mg Q6H PRN IV ELEVATED SYSTOLIC BP Last administered on 10/22/16 23:09; Admin Dose 10 MG; Start 10/05/16 at 21:30 Clonidine (Catapres) 0.1 mg Q6H PRN PO ELEVATED SYSTOLIC BP; Start 10/05/16 at 21:30 Nitroglycerin (Nitroglycerin (Sl Tab) 0.4 Mg) 1 tab Q5M PRN SL ANGINA; Start at 21:30 Aspirin 325 mg 325 mg DAILY PO Last administered on 10/25/16 09:08; Admin Dose 325 MG; Start 10/06/16 at 09:00 Diltiazem HCl (Cardizem-D5W 125 Mg/125 ml Drip) 125 ml @ 5 mls/hr TITRATE IV ; Start 10/05/16 at 22:00 Diagnostic Test (Pha) (Accucheck) 1 ea 02 XX Last administered on 10/23/16 02: 41; Admin Dose 1 EA; Start 10/07/16 at 02:00 Zolpidem Tartrate (Ambien) 5 mg HS PRN PO INSOMNIA Last administered on 22:43; Admin Dose 5 MG; Start 10/06/16 at 01:00 Miscellaneous Information 1 ea NOTE XX ; Start 10/06/16 at 01:00 Glucose (Glutose) 15 gm Q15M PRN PO DECREASED GLUCOSE; Start 10/06/16 at 01:00 Glucose (Glutose) 22.5 gm Q15M PRN PO DECREASED GLUCOSE; Start 10/06/16 at 01: 00 Dextrose (D50w Syringe) 25 ml Q15M PRN IV DECREASED GLUCOSE; Start 10/06/16 at 01:00 Dextrose (D50w Syringe) 50 ml Q15M PRN IV DECREASED GLUCOSE; Start 10/06/16 at 01:00 Glucagon (Glucagen) 1 mg Q15M PRN IM DECREASED GLUCOSE; Start 10/06/16 at 01:00 Glucose (Glutose) 15 gm Q15M PRN BUCCAL DECREASED GLUCOSE; Start 10/06/16 at 01 :00 Cyanocobalamin (Vitamin B12) 1,000 mcg DAILY PO Last administered on 10/25/16 09:09; Admin Dose 1,000 MCG; Start 10/06/16 at 09:00 Folic Acid (Folic Acid) 0.8 mg DAILY PO Last administered on 10/25/16 09:08; Admin Dose 0.8 MG; Start 10/06/16 at 09:00 Triamcinolone Acetonide (Kenalog 0.1% Oint) 1 applic BID TOP Last administered on 10/24/16 21:59; Admin Dose 1 APPLIC; Start 10/06/16 at 09:00 Ferrous Sulfate (Slow Fe) 142 mg DAILY PO Last administered on 10/25/16 09:09; Admin Dose 142 MG; Start 10/07/16 at 09:00 Magnesium Oxide (Mag-Ox 400) 400 mg DAILY PO Last administered on 10/25/16 09: 08; Admin Dose 400 MG; Start 10/06/16 at 13:00 Clopidogrel Bisulfate (plaVIX) 75 mg DAILY PO Last administered on 10/25/16 09: 09; Admin Dose 75 MG; Start 10/06/16 at 12:00 Atorvastatin Calcium (Lipitor) 40 mg QHS PO Last administered on 10/24/16 21:53 ; Admin Dose 40 MG; Start 10/06/16 at 21:00 Zolpidem Tartrate (Ambien) 10 mg QHS PRN PO INSOMNIA Last administered on 22:43; Admin Dose 10 MG; Start 10/06/16 at 16:30 Insulin Glargine (Lantus) 10 unit HS SC Last administered on 10/22/16 20:35; Admin Dose 10 UNIT; Start 10/07/16 at 21:00 Linagliptin (Tradjenta) 5 mg DAILY PO Last administered on 10/25/16 09:09; Admin Dose 5 MG; Start 10/07/16 at 17:00 Heparin Sodium (Porcine) (Heparin (5000 Units/0.5 ml)) 5,000 unit BID SC Last administered on 10/25/16 09:26; Admin Dose 5,000 UNIT; Start 10/10/16 at 12:00 Nifedipine 60 mg 60 mg QHS PO Last administered on 10/24/16 21:54; Admin Dose 60 MG; Start 10/10/16 at 21:00 Piperacillin Sod/ Tazobactam Sod (Zosyn 2.25gm/ 50ml (Pmx)) 50 ml @ 100 mls/hr Q8 IVPB Last administered on 10/25/16 14:44; Admin Dose 100 MLS/HR; Start 10/11 at 11:00; Stop 10/26/16 at 06:00 Acetaminophen (Tylenol Tab) 650 mg Q4H PRN PO NON-CARDIAC PAIN LEVEL (1-3) Last administered on 10/24/16 12:52; Admin Dose 650 MG; Start 10/13/16 at 11:00 Morphine Sulfate (morphine) 2 mg Q2H PRN IV FOR NON CARDIAC PAIN (4-10); Start 10/13/16 at 11:00 Al Hydrox/Mg Hydrox/Simethicone (Mag-Al Plus) 30 ml Q4H PRN PO GASTROINTESTINAL UPSET; Start 10/13/16 at 11:00 Ondansetron HCl (Zofran Inj) 4 mg Q4H PRN IV NAUSEA AND/OR VOMITING; Start at 11:00 Lidocaine (Xylocaine 1% (Mpf)) 30 ml ONCE PRN INJ ANESTHESIA; Start 10/15/16 at 14:30 Benazepril HCl (Lotensin) 40 mg BID PO Last administered on 10/24/16 21:54; Admin Dose 40 MG; Start 10/15/16 at 21:00 Nifedipine (Procardia Xl) 60 mg AM PO Last administered on 10/25/16 09:15; Admin Dose 60 MG; Start 10/20/16 at 09:00 Metoprolol Succinate (Toprol Xl) 50 mg BID PO Last administered on 10/25/16 09: 15; Admin Dose 50 MG; Start 10/20/16 at 21:00 Lorazepam (Ativan) 0.5 mg HS PO Last administered on 10/24/16 21:53; Admin Dose 0.5 MG; Start 10/23/16 at 21:00 SHAR GARLAND MD Oct 25, 2016 15:42
[2016-10-25] MEDS: EPOETIN 10000 UNITS/1 ML INJ (ESRD) SC SCH (17:50)
--- NOTE | 2016-10-25 18:16 | CONS ---
Date/Time of Note Date/Time of Note DATE: 10/25/16 TIME: 18:14 Assessment/Plan Assessment/Plan Additional Assessment/Plan 1. Atrial fibrillation with rapid ventricular response-now in SR - now in sinus. 2. Abnormal electrocardiogram with inferolateral ST depressions. 3. Positive troponin, assess significance- s/p [facility]. 4. Cardiomyopathy, decreased left ventricular ejection fraction last approximately 45% by outside hospital paperwork at [facility] 09/09. Now approx 25% by echo here 5. History of PTCA and stent placement at [facility] recently.-per notes had PCI at [facility](08/2016)after being thought to be poor surgical candidate but cath report not sent from [place]. Had originally transferred from [facility] where was cathed and found to have 3VD after suffering CA.-Now s/p [facility] this admit with moderate disease of distal LMN and mid LAD but otherwise patent vessels and stents - MED RX advised. 6. Renal failure- better now. 7. Hypertension-Currently improved 8. Shortness of breath. 9. Generalized weakness. 10. Diabetes mellitus. 11. Anemia-worsening 12.CHF-systolic acute on chronic 14.Bacteremia-GNR persistent-most recent bld cx's now negative 15. Dizziness Consultation Date/Type/Reason Admit Date/Time Oct 05, 2016 at 21:04 Type of Consultation: ID Referring Provider: JANAE ELDRIDGE 24 HR Interval Summary Free Text/Dictation NO acute events - no Cp now - lianet monitor. Labile BP - adjust Rx as needed. ROS: No fever, no chills, no nausea, no vomiting, no diarrhea/constipation No recent weight changes No chest pain, no PND, no orthopnea No dizziness, blurred vision No thirst, no heat or cold intolerance Exam/Review of Systems Vital Signs Vitals Vital Signs Date Time Temp Pulse Resp B/P Pulse Ox O2 Delivery O2 Flow Rate FiO2 10/25/16 13:00 69 10/25/16 12:50 18 10/25/16 08:45 98.4 154/75 98 10/24/16 13:10 Room Air 10/24/16 10:35 1.0 10/21/16 16:25 21 Intake and Output 10/24/16 10/24/16 10/25/16 15:00 23:00 07:00 Intake Total 150 ml 700 ml 350 ml Balance 150 ml 700 ml 350 ml Exam General: WN/WD/NAD, AOx 2-3 HEENT: Unicetric/atraumatic/EOMI (follow commands) NECK: JVD elevated, no thyromegaly Lymph: no lymphadenopathy HEART: regular with no S3, II/ systolic murmur at apex LUNGS: Coarse sounds ABD: soft, NT, ND, +BS : Intact Neuro: non focal SKIN: chronic changes EXT: trace edema Results Result Diagram: 10/25/1652410/25/16 0525 Results 24 hrs Laboratory Tests Test 10/24/16 20:33 10/25/16 05:25 10/25/16 07:52 10/25/16 13:21 Bedside Glucose 180 154 179 White Blood Count 9.7 # Red Blood Count 3.49 L Hemoglobin 9.5 L Hematocrit 29.9 L Mean Corpuscular Volume 85.7 Mean Corpuscular Hemoglobin 27.2 L Mean Corpuscular Hemoglobin Concent 31.8 L Red Cell Distribution Width 16.9 H Platelet Count 293 Mean Platelet Volume 11.1 H Neutrophils % 64.2 Lymphocytes % 24.0 Monocytes % 8.0 Eosinophils % 2.5 Basophils % 0.9 Nucleated Red Blood Cells % 0.0 Neutrophils # 6.2 Lymphocytes # 2.3 Monocytes # 0.8 Eosinophils # 0.2 Basophils # 0.1 Nucleated Red Blood Cells # 0.0 Sodium Level 133 L Potassium Level 4.4 Chloride Level 99 Carbon Dioxide Level 20 L Anion Gap 18 H Blood Urea Nitrogen 55 H Creatinine 7.19 H Glucose Level 135 Calcium Level 8.9 Test 10/25/16 17:21 Bedside Glucose 193 Medications Medications Current Medications Acetaminophen/ Hydrocodone Bitart ([place] (5/325)) 1 tab Q6H PRN PO MODERATE PAIN LEVEL 4-6; Start 10/05/16 at 21:30 Morphine Sulfate (morphine) 2 mg Q4H PRN IV SEVERE PAIN LEVEL 7-10; Start 10/05 at 21:30 Docusate Sodium (Colace) 100 mg Q12H PRN PO CONSTIPATION; Start 10/05/16 at 21: 30 Magnesium Hydroxide (Milk Of Mag) 30 ml DAILY PRN PO CONSTIPATION; Start at 21:30 Sodium Biphosphate/ Sodium Phosphate (Fleet Enema) 133 ml DAILY PRN [place] CONSTIPATION; Start 10/05/16 at 21:30 Famotidine (Pepcid) 20 mg DAILY PO Last administered on 10/25/16 09:08; Admin Dose 20 MG; Start 10/06/16 at 09:00 Lorazepam (Ativan) 0.5 mg Q6H PRN IV ANXIETY Last administered on 10/13/16 21: 38; Admin Dose 0.5 MG; Start 10/05/16 at 21:30 Hydralazine HCl (Apresoline) 10 mg Q6H PRN IV ELEVATED SYSTOLIC BP Last administered on 10/22/16 23:09; Admin Dose 10 MG; Start 10/05/16 at 21:30 Clonidine (Catapres) 0.1 mg Q6H PRN PO ELEVATED SYSTOLIC BP; Start 10/05/16 at 21:30 Nitroglycerin (Nitroglycerin (Sl Tab) 0.4 Mg) 1 tab Q5M PRN SL ANGINA; Start at 21:30 Aspirin 325 mg 325 mg DAILY PO Last administered on 10/25/16 09:08; Admin Dose 325 MG; Start 10/06/16 at 09:00 Diltiazem HCl (Cardizem-D5W 125 Mg/125 ml Drip) 125 ml @ 5 mls/hr TITRATE IV ; Start 10/05/16 at 22:00 Diagnostic Test (Pha) (Accucheck) 1 ea 02 XX Last administered on 10/23/16 02: 41; Admin Dose 1 EA; Start 10/07/16 at 02:00 Zolpidem Tartrate (Ambien) 5 mg HS PRN PO INSOMNIA Last administered on 22:43; Admin Dose 5 MG; Start 10/06/16 at 01:00 Miscellaneous Information 1 ea NOTE XX ; Start 10/06/16 at 01:00 Glucose (Glutose) 15 gm Q15M PRN PO DECREASED GLUCOSE; Start 10/06/16 at 01:00 Glucose (Glutose) 22.5 gm Q15M PRN PO DECREASED GLUCOSE; Start 10/06/16 at 01: 00 Dextrose (D50w Syringe) 25 ml Q15M PRN IV DECREASED GLUCOSE; Start 10/06/16 at 01:00 Dextrose (D50w Syringe) 50 ml Q15M PRN IV DECREASED GLUCOSE; Start 10/06/16 at 01:00 Glucagon (Glucagen) 1 mg Q15M PRN IM DECREASED GLUCOSE; Start 10/06/16 at 01:00 Glucose (Glutose) 15 gm Q15M PRN BUCCAL DECREASED GLUCOSE; Start 10/06/16 at 01 :00 Cyanocobalamin (Vitamin B12) 1,000 mcg DAILY PO Last administered on 10/25/16 09:09; Admin Dose 1,000 MCG; Start 10/06/16 at 09:00 Folic Acid (Folic Acid) 0.8 mg DAILY PO Last administered on 10/25/16 09:08; Admin Dose 0.8 MG; Start 10/06/16 at 09:00 Triamcinolone Acetonide (Kenalog 0.1% Oint) 1 applic BID TOP Last administered on 10/24/16 21:59; Admin Dose 1 APPLIC; Start 10/06/16 at 09:00 Ferrous Sulfate (Slow Fe) 142 mg DAILY PO Last administered on 10/25/16 09:09; Admin Dose 142 MG; Start 10/07/16 at 09:00 Magnesium Oxide (Mag-Ox 400) 400 mg DAILY PO Last administered on 10/25/16 09: 08; Admin Dose 400 MG; Start 10/06/16 at 13:00 Clopidogrel Bisulfate (plaVIX) 75 mg DAILY PO Last administered on 10/25/16 09: 09; Admin Dose 75 MG; Start 10/06/16 at 12:00 Atorvastatin Calcium (Lipitor) 40 mg QHS PO Last administered on 10/24/16 21:53 ; Admin Dose 40 MG; Start 10/06/16 at 21:00 Zolpidem Tartrate (Ambien) 10 mg QHS PRN PO INSOMNIA Last administered on 22:43; Admin Dose 10 MG; Start 10/06/16 at 16:30 Insulin Glargine (Lantus) 10 unit HS SC Last administered on 10/22/16 20:35; Admin Dose 10 UNIT; Start 10/07/16 at 21:00 Linagliptin (Tradjenta) 5 mg DAILY PO Last administered on 10/25/16 09:09; Admin Dose 5 MG; Start 10/07/16 at 17:00 Heparin Sodium (Porcine) (Heparin (5000 Units/0.5 ml)) 5,000 unit BID SC Last administered on 10/25/16 09:26; Admin Dose 5,000 UNIT; Start 10/10/16 at 12:00 Nifedipine 60 mg 60 mg QHS PO Last administered on 10/24/16 21:54; Admin Dose 60 MG; Start 10/10/16 at 21:00 Piperacillin Sod/ Tazobactam Sod (Zosyn 2.25gm/ 50ml (Pmx)) 50 ml @ 100 mls/hr Q8 IVPB Last administered on 10/25/16 14:44; Admin Dose 100 MLS/HR; Start 10/11 at 11:00; Stop 10/26/16 at 06:00 Acetaminophen (Tylenol Tab) 650 mg Q4H PRN PO NON-CARDIAC PAIN LEVEL (1-3) Last administered on 10/24/16 12:52; Admin Dose 650 MG; Start 10/13/16 at 11:00 Morphine Sulfate (morphine) 2 mg Q2H PRN IV FOR NON CARDIAC PAIN (4-10); Start 10/13/16 at 11:00 Al Hydrox/Mg Hydrox/Simethicone (Mag-Al Plus) 30 ml Q4H PRN PO GASTROINTESTINAL UPSET; Start 10/13/16 at 11:00 Ondansetron HCl (Zofran Inj) 4 mg Q4H PRN IV NAUSEA AND/OR VOMITING; Start at 11:00 Lidocaine (Xylocaine 1% (Mpf)) 30 ml ONCE PRN INJ ANESTHESIA; Start 10/15/16 at 14:30 Benazepril HCl (Lotensin) 40 mg BID PO Last administered on 10/24/16 21:54; Admin Dose 40 MG; Start 10/15/16 at 21:00 Nifedipine (Procardia Xl) 60 mg AM PO Last administered on 10/25/16 09:15; Admin Dose 60 MG; Start 10/20/16 at 09:00 Metoprolol Succinate (Toprol Xl) 50 mg BID PO Last administered on 10/25/16 09: 15; Admin Dose 50 MG; Start 10/20/16 at 21:00 Lorazepam (Ativan) 0.5 mg HS PO Last administered on 10/24/16 21:53; Admin Dose 0.5 MG; Start 10/23/16 at 21:00 BALAJI YI MD Oct 25, 2016 18:16
[2016-10-25] MEDS: ACETAMINOPHEN 325 MG TAB PO PRN (19:09)
[2016-10-25] MEDS: INSULIN GLARGINE [LANtus] 3 ML PEN SC SCH (20:58)
[2016-10-25] MEDS: ATORVASTATIN 40 MG TAB PO SCH (21:02)
[2016-10-25] MEDS: LORAZEPAM 0.5 MG TAB PO SCH (21:06)
[2016-10-25] MEDS: ZOLPIDEM 5 MG TAB PO PRN (22:04)
[2016-10-26] MEDS: ACCU-CHEK XX SCH (02:00)
[2016-10-26] MEDS: PIPER-TAZO 2.25 GM (PMX) 50 ML IVPB SCH (05:33)
[2016-10-26 08:03] VITALS: BP 150/73; RESP 16
[2016-10-26] MEDS: INSULIN ASPART [NOVOLOG] 3 ML PEN SC SCH ×3 (08:20→16:31)
[2016-10-26] MEDS: HEPARIN 5,000 UNIT/0.5 ML SYG SC SCH (08:20)
[2016-10-26] MEDS: METOPROLOL (XL) 50 MG TAB PO SCH (08:22)
[2016-10-26] MEDS: ASPIRIN (EC) 325 MG TAB PO SCH (08:22)
[2016-10-26] MEDS: LINAGLIPTIN 5 MG TABLET PO SCH (08:22)
[2016-10-26] MEDS: CYANOCOBALAMIN 500 MCG TAB PO SCH (08:22)
[2016-10-26] MEDS: MAGNESIUM OXIDE 400 MG TAB PO SCH (08:22)
[2016-10-26] MEDS: FAMOTIDINE 20 MG TAB PO SCH (08:22)
[2016-10-26] MEDS: FOLIC ACID 0.4 MG TAB PO SCH (08:22)
[2016-10-26] MEDS: BENAZEPRIL 40 MG TAB PO SCH (08:23)
[2016-10-26] MEDS: FERROUS SULFATE (SR) 142 MG TAB PO SCH (08:23)
[2016-10-26] MEDS: CLOPIDOGREL 75 MG TAB PO SCH (08:23)
[2016-10-26] MEDS: NIFEdipine (XL) 60 MG TAB PO SCH (08:23)
[2016-10-26] MEDS: TRIAMCINOLONE ACET 0.1% 15 GM OINT TOP SCH (09:00)
[2016-10-26] MEDS: ACETAMINOPHEN 325 MG TAB PO PRN (10:02)
--- NOTE | 2016-10-26 13:23 | PN ---
DATE: 10/26/2016 SUBJECTIVE: The patient is stable, no acute events overnight. No fevers, chills, nausea, vomiting. No shortness of breath. OBJECTIVE: VITAL SIGNS: Blood pressure 150/73, respirations 16, pulse 72, temperature 97.4. HEENT: Head is normocephalic. NECK: Supple. HEART: Regular rate. LUNGS: Show diminished breath sounds at the bases. EXTREMITIES: Negative for clubbing, cyanosis. No edema. DERMATOLOGIC: No rashes. MUSCULOSKELETAL: No joint effusions. NEUROLOGIC: No change in exam. MEDICATIONS: The patient's medications have been reviewed. LABORATORY DATA: Has been reviewed. No new labs this morning. ASSESSMENT AND PLAN: 1. End-stage renal disease. The patient has been dialyzed. We will plan to observe patient who wa s dialyzed yesterday. Plan for dialysis tomorrow for 3 hours, 3 K bath, calcium 2.5. 2. Access. The patient is status post PermCath placement. 3. Sepsis secondary to line infection. The patient clinically improved. Continue medical manageme nt. 4. Anemia of chronic disease. Continue to monitor hemoglobin and hematocrit levels. 5. Atrial fibrillation, currently rate controlled. Continue current medical management. Follow up with cardiology. 6. Diabetes. Continue Accu-Cheks and insulin sliding scale. 7. Hypertension. Continue current blood pressure regimen. 8. Status post respiratory failure. 9. Hyponatremia. Continue to limit free water intake. Dictated By: NOEMI LOUIE DO NR/NTS Conf#: [id number] DID#: [id number]
--- NOTE | 2016-10-26 14:14 | CONS ---
Date/Time of Note Date/Time of Note DATE: 10/26/16 TIME: 14:11 Assessment/Plan Assessment/Plan Chief Complaint/Hosp Course IMPRESSION: 1. Atrial fibrillation with rapid ventricular response-now in SR 2. Abnormal electrocardiogram with inferolateral ST depressions. 3. Positive troponin, assess significance. 4. Cardiomyopathy, decreased left ventricular ejection fraction last approximately 45% by outside hospital paperwork at [facility] 09/09. Now approx 25% by echo here 5. History of PTCA and stent placement at [facility] recently.-per notes had PCI at [facility](08/2016)after being thought to be poor surgical candidate but cath report not sent from [facility]. Had originally transferred from [facility] where was cathed and found to have 3VD after suffering PA.-Now s/p [facility] this admit with moderate disease of distal LMN and mid LAD but otherwise patent vessels and stents 6. Renal failure. 7. Hypertension-Currently mildly elevated. 8. Shortness of breath. 9. Generalized weakness. 10. Diabetes mellitus. 11. Anemia-worsening 12.CHF-systolic acute on chronic 14.Bacteremia-GNR persistent-most recent bld cx's now negative 15. Dizziness/orthostasis-improved Recc: -Tele -Continue JUDY/CCB/BB and f/u BP after giving -Continue asa/plavix/statin -HD for volume removal -SQ heparin -Continue abx's and f/u cx data Problems: Consultation Date/Type/Reason Admit Date/Time Oct 05, 2016 at 21:04 Initial Consult Date 10/06/2016 Type of Consultation: Cardiology Reason for Consultation AF,cardiomyopathy Referring Provider: JANAE ELDRIDGE Exam/Review of Systems Vital Signs Vitals Vital Signs Date Time Temp Pulse Resp B/P Pulse Ox O2 Delivery O2 Flow Rate FiO2 10/26/16 08:03 97.4 72 16 150/73 100 10/24/16 13:10 Room Air 10/24/16 10:35 1.0 Intake and Output 10/25/16 10/25/16 10/26/16 15:00 23:00 07:00 Intake Total 500 ml 1000 ml 480 ml Output Total 3000 ml Balance -2500 ml 1000 ml 480 ml Exam Review of Systems: CONSTITUTIONAL: No fevers, chills. PULMONARY: No sob CARDIOVASCULAR: No chest pain/palpitations GASTROINTESTINAL: No nausea/vomiting. GENITOURINARY: No hematuria/dysuria. MUSCULOSKELETAL: No myagias/arthalgias. PSYCHIATRIC: The patient denies depression. NEUROLOGIC: No weakness Constitutional: alert Psych: no complaints Head: normocephalic ENMT: mucosa pink and moist Neck: jvd (9 cm water) Respiratory: diminished breath sounds (at bases/B) Cardiovascular: regular rate and rhythm Gastrointestinal: non-tender, soft Musculoskeletal: muscle tone (normal) Extremities: edema (none) Neurological: other (No focal deficits) Results Result Diagram: 10/25/1625 10/25/1625 Results 24 hrs Laboratory Tests Test 10/25/16 17:21 10/25/16 20:52 10/26/16 02:01 10/26/16 07:49 Bedside Glucose 193 224 H 86 142 Test 10/26/16 11:29 Bedside Glucose 170 Medications Medications Current Medications Acetaminophen/ Hydrocodone Bitart ([place] (5/325)) 1 tab Q6H PRN PO MODERATE PAIN LEVEL 4-6; Start 10/05/16 at 21:30 Morphine Sulfate (morphine) 2 mg Q4H PRN IV SEVERE PAIN LEVEL 7-10; Start 10/05 at 21:30 Docusate Sodium (Colace) 100 mg Q12H PRN PO CONSTIPATION; Start 10/05/16 at 21: 30 Magnesium Hydroxide (Milk Of Mag) 30 ml DAILY PRN PO CONSTIPATION; Start at 21:30 Sodium Biphosphate/ Sodium Phosphate (Fleet Enema) 133 ml DAILY PRN OK CONSTIPATION; Start 10/05/16 at 21:30 Famotidine (Pepcid) 20 mg DAILY PO Last administered on 10/26/16 08:22; Admin Dose 20 MG; Start 10/06/16 at 09:00 Lorazepam (Ativan) 0.5 mg Q6H PRN IV ANXIETY Last administered on 10/13/16 21: 38; Admin Dose 0.5 MG; Start 10/05/16 at 21:30 Hydralazine HCl (Apresoline) 10 mg Q6H PRN IV ELEVATED SYSTOLIC BP Last administered on 10/22/16 23:09; Admin Dose 10 MG; Start 10/05/16 at 21:30 Clonidine (Catapres) 0.1 mg Q6H PRN PO ELEVATED SYSTOLIC BP; Start 10/05/16 at 21:30 Nitroglycerin (Nitroglycerin (Sl Tab) 0.4 Mg) 1 tab Q5M PRN SL ANGINA; Start at 21:30 Aspirin 325 mg 325 mg DAILY PO Last administered on 10/26/16 08:22; Admin Dose 325 MG; Start 10/06/16 at 09:00 Diltiazem HCl (Cardizem-D5W 125 Mg/125 ml Drip) 125 ml @ 5 mls/hr TITRATE IV ; Start 10/05/16 at 22:00 Diagnostic Test (Pha) (Accucheck) 1 ea 02 XX Last administered on 10/23/16 02: 41; Admin Dose 1 EA; Start 10/07/16 at 02:00 Zolpidem Tartrate (Ambien) 5 mg HS PRN PO INSOMNIA Last administered on 22:43; Admin Dose 5 MG; Start 10/06/16 at 01:00 Miscellaneous Information 1 ea NOTE XX ; Start 10/06/16 at 01:00 Glucose (Glutose) 15 gm Q15M PRN PO DECREASED GLUCOSE; Start 10/06/16 at 01:00 Glucose (Glutose) 22.5 gm Q15M PRN PO DECREASED GLUCOSE; Start 10/06/16 at 01: 00 Dextrose (D50w Syringe) 25 ml Q15M PRN IV DECREASED GLUCOSE; Start 10/06/16 at 01:00 Dextrose (D50w Syringe) 50 ml Q15M PRN IV DECREASED GLUCOSE; Start 10/06/16 at 01:00 Glucagon (Glucagen) 1 mg Q15M PRN IM DECREASED GLUCOSE; Start 10/06/16 at 01:00 Glucose (Glutose) 15 gm Q15M PRN BUCCAL DECREASED GLUCOSE; Start 10/06/16 at 01 :00 Cyanocobalamin (Vitamin B12) 1,000 mcg DAILY PO Last administered on 10/26/16 08:22; Admin Dose 1,000 MCG; Start 10/06/16 at 09:00 Folic Acid (Folic Acid) 0.8 mg DAILY PO Last administered on 10/26/16 08:22; Admin Dose 0.8 MG; Start 10/06/16 at 09:00 Triamcinolone Acetonide (Kenalog 0.1% Oint) 1 applic BID TOP Last administered on 10/25/16 21:10; Admin Dose 1 APPLIC; Start 10/06/16 at 09:00 Ferrous Sulfate (Slow Fe) 142 mg DAILY PO Last administered on 10/26/16 08:23; Admin Dose 142 MG; Start 10/07/16 at 09:00 Magnesium Oxide (Mag-Ox 400) 400 mg DAILY PO Last administered on 10/26/16 08: 22; Admin Dose 400 MG; Start 10/06/16 at 13:00 Clopidogrel Bisulfate (plaVIX) 75 mg DAILY PO Last administered on 10/26/16 08: 23; Admin Dose 75 MG; Start 10/06/16 at 12:00 Atorvastatin Calcium (Lipitor) 40 mg QHS PO Last administered on 10/25/16 21:02 ; Admin Dose 40 MG; Start 10/06/16 at 21:00 Zolpidem Tartrate (Ambien) 10 mg QHS PRN PO INSOMNIA Last administered on 22:04; Admin Dose 10 MG; Start 10/06/16 at 16:30 Insulin Glargine (Lantus) 10 unit HS SC Last administered on 10/25/16 20:58; Admin Dose 10 UNIT; Start 10/07/16 at 21:00 Linagliptin (Tradjenta) 5 mg DAILY PO Last administered on 10/26/16 08:22; Admin Dose 5 MG; Start 10/07/16 at 17:00 Heparin Sodium (Porcine) (Heparin (5000 Units/0.5 ml)) 5,000 unit BID SC Last administered on 10/26/16 08:20; Admin Dose 5,000 UNIT; Start 10/10/16 at 12:00 Nifedipine (Procardia Xl) 60 mg QHS PO Last administered on 10/25/16 21:02; Admin Dose 60 MG; Start 10/10/16 at 21:00 Acetaminophen (Tylenol Tab) 650 mg Q4H PRN PO NON-CARDIAC PAIN LEVEL (1-3) Last administered on 10/26/16 10:02; Admin Dose 650 MG; Start 10/13/16 at 11:00 Morphine Sulfate (morphine) 2 mg Q2H PRN IV FOR NON CARDIAC PAIN (4-10); Start 10/13/16 at 11:00 Al Hydrox/Mg Hydrox/Simethicone (Mag-Al Plus) 30 ml Q4H PRN PO GASTROINTESTINAL UPSET; Start 10/13/16 at 11:00 Ondansetron HCl (Zofran Inj) 4 mg Q4H PRN IV NAUSEA AND/OR VOMITING; Start at 11:00 Lidocaine (Xylocaine 1% (Mpf)) 30 ml ONCE PRN INJ ANESTHESIA; Start 10/15/16 at 14:30 Benazepril HCl (Lotensin) 40 mg BID PO Last administered on 10/26/16 08:23; Admin Dose 40 MG; Start 10/15/16 at 21:00 Nifedipine (Procardia Xl) 60 mg AM PO Last administered on 10/26/16 08:23; Admin Dose 60 MG; Start 10/20/16 at 09:00 Metoprolol Succinate (Toprol Xl) 50 mg BID PO Last administered on 10/26/16 08: 22; Admin Dose 50 MG; Start 10/20/16 at 21:00 Lorazepam (Ativan) 0.5 mg HS PO Last administered on 10/25/16 21:06; Admin Dose 0.5 MG; Start 10/23/16 at 21:00 AIYANA LANG Oct 26, 2016 14:14
[2016-10-26] MEDS ORDERED: LANT3I SC (15:00)
[2016-10-26] MEDS ORDERED: CLOP75TA28 PO (15:00)
[2016-10-26] MEDS ORDERED: NIFE60TA7 PO (15:00)
[2016-10-26] MEDS ORDERED: METO50TA16 PO (15:00)
[2016-10-26] MEDS ORDERED: LINA5TAB PO (15:00)
[2016-10-26] MEDS ORDERED: BENA40TA41 PO (15:00)
--- NOTE | 2016-10-26 15:20 | DS ---
Date/Time of Note Date/Time of Note DATE: 10/26/16 TIME: 15:06 Discharge Summary Admission/Discharge Info Admit Date/Time Oct 05, 2016 at 21:04 Discharge Date/Time Final Diagnosis 1. RALSTONIA PICKETTII bacteremia, considered HD line infection, permacath replaced on 10/17/2016, treated 2. Acute respiratory distress secondary to volume overload with underlying end- stage renal disease and congestive heart failure, improved 3. Atrial fibrillation with rapid ventricular response, converted back to sinus 4. CAD with s/p PCI/stent, NSTEMI type 2 s/p C 10/13/16 with findings: * Moderate obstruction of distal left main but with excellent flow and moderate obstruction of mid LAD with excellent flow. * Widely patent LAD and circumflex stents. * Elevated left heart filling pressures. * No significant aortic stenosis by gradient. 5. End-stage renal disease on hemodialysis, follow up with nephrology 6. Acute on chronic systolic congestive heart failure with Ischemic CM and ejection fraction of 25%, stable, follow up with cardiology 7. Diabetes mellitus type 2. Hemoglobin 6.3. , follow up with PCP for medication adjustment 8. Anemia of chronic disease.. 9. Hypertension, improved, follow up with PCP Patient Condition: Stable Procedures CARDIOLOGY REPORT DATE OF PROCEDURE: 10/13/2016 TYPE OF PROCEDURE: 1. Left heart catheterization. 2. Coronary angiography. 3. Measurement of left ventricular end diastolic pressure. 4. Femoral angiography. 5. Perclose closure device to right femoral artery. ATTENDING PHYSICIAN: Aiyana Umana MD REFERRING PHYSICIAN: Dr. Alvarado from the hospitalist service. INDICATION: Cardiomyopathy, decreased left ventricular ejection fraction, positive troponin, non-ST myocardial infarction, decreased EF TYPE OF ANESTHESIA: Conscious and local. BRIEF HISTORY AND HOSPITAL COURSE: Mr. Sandoval is a 76-year-old male with history of hypertension, dyslipidemia, diabetes mellitus who initially presented with complaints of shortness of breath and congestive heart failure. The patient underwent a 2D echo revealing a depressed EF from prior echo done 1 to 2 months prior and positive troponins. The patient brought to the cardiac catheterization lab in order to assess for the possibility of recurrent symptoms of congestive heart failure and decreased EF. PROCEDURE: After informed consent was obtained to assess the [facility] cardiac catheterization lab where his right groin was prepped and draped in usual sterile fashion. Lidocaine 2% was infiltrated into the right groin in order to achieve adequate anesthesia. Using modified Seldinger technique, the right femoral artery was cannulated and a 6-St Helenian arterial sheath was placed. A 6-[place] JL4 cardiac catheter was used to cannulate the left main coronary ostium with contrast injection. Multiple views of the left coronary arterial system were obtained. JL4 was removed over a guidewire and a JR4 was used to cannulate the right coronary arterial ostium. With contrast injection, multiple views of the right coronary arterial system obtained. JL4 was removed over a guidewire and a 6-[place]ian pigtail was passed through and across the aortic valve into the left ventricle. Left ventricular end-diastolic pressure measured. The pigtail catheter was then pulled back across the aortic valve to assess for significant gradient and removed. No LV gram was undertaken due to elevated left ventricular end diastolic pressure. Subsequently, at this time, a final angiographic image of the right femoral arterial insertion site was then obtained revealing the sheath to be well placed in the right common femoral artery. Subsequently, a 6-[place] Perclose device was used to seal the vessel. This completed the procedure. There were no noted complications. FINDINGS: 1. Coronary angiography: Left main 4.5 mm with a distal 50% to 60% stenosis. The LAD proximally is a 3.5 mm vessel and has a widely patent apparent stent in this region with a mid body stenosis of approximately 20% to 30%. There appears to be a possible dual LAD system with the inferior branch becoming a very small caliber vessel just at the bifurcation, with some mild haziness and stenosis probably up to 40% to 50%, but with excellent flow within the vessels and a sub 2 mm vessel, the most probable true LAD appears to have a stent just at the bifurcation which is widely patent and in the mid portion of the LAD where it is a sub 2 mm vessel, has a stenosis up to approximately 60%. There are 2 mid branching diagonals, each with approximately 40% ostial stenosis. The circumflex proximally is a 3.5 mm vessel, is widely patent. There is a widely patent stent in the proximal portion of this vessel. In the mid distal portion of the circ continuation AV groove, there is a 30% stenosis and there is obtuse marginal bifurcates distally, a 2 mm vessel with an ostial 40% stenosis. The right coronary artery proximally is a very large vessel 4 mm ____ _ appearing, with a questionable stent versus likely calcified vessels and has a dominant vessel, gives off a 2.5 mm PDA with a 20% stenosis and a 3 mm posterolateral branch with a 30% mid body stenosis. MEASUREMENTS: Left ventricular end diastolic pressure of 25, no significant aortic stenosis by gradient. TOTAL FLUOROSCOPY TIME: 2.7 minutes. TOTAL CONTRAST: 60 mL. IMPRESSION: 1. Moderate obstruction of distal left main but with excellent flow and moderate obstruction of mid LAD with excellent flow. 2. Widely patent LAD and circumflex stents. 3. Elevated left heart filling pressures. 4. No significant aortic stenosis by gradient. RECOMMENDATIONS: In light of procedure and findings at this time would: 1. Maximize medical management. 2. Aggressive risk factor reduction. 3. The patient to be readmitted to telemetry floor for post-catheterization observation and continued management of symptoms with PCP. Dictated By: AIYANA OWENS/CHANTALE Conf#: [id number] DID#: [id number] Hospital Course This is a 76-year-old gentleman with past medical history of coronary artery disease, diabetes mellitus x2, atrial fibrillation, end-stage renal disease on hemodialysis, who was recently at [facility] and had angioplasty, who presents to [facility] secondary to having shortness of breath without any chest pain. Echocardiography with LVEF 25%. Patient had coronary angiography on 10/13/2016 that revealed Moderate obstruction of distal left main but with excellent flow and moderate obstruction of mid LAD with excellent flow. Widely patent LAD and circumflex stents. Aggressive medical management is recommended. Patient had RALSTONIA PICKETTII bacteremia, that is considered HD line infection , permacath was replaced on 10/17/2016. A new right chest Permacath was placed on 10/24/2016. He finished antibiotics treatment. Patient had uncontrolled hypertension on admission, antihypertensives are adjusted. Follow up with PCP for further antihypertensives adjustment. DM medications are changes. He is on insulin now. Follow up with PCP for DM follow up. Home Meds Active Scripts Linagliptin (TRADJENTA) 5 Mg Tablet, 5 MG PO DAILY for 30 Days, TAB Prov:SHAR GARLAND MD 10/26/16 Insulin Glargine* (Lantus*) 100 Unit/Ml Soln, 10 UNIT SC HS for 30 Days Prov:SHAR GARLAND MD 10/26/16 Nifedipine (Afeditab CR) 60 Mg Tablet.sa, 60 MG PO AM for 30 Days Prov:SHAR GARLAND MD 10/26/16 Metoprolol Succinate* (Toprol XL*) 50 Mg Tab.er.24h, 50 MG PO BID for 30 Days Prov:SHAR GARLAND MD 10/26/16 Benazepril Hcl* (Benazepril Hcl*) 40 Mg Tablet, 40 MG PO BID for 30 Days, TAB Prov:SHAR GARLAND MD 10/26/16 Clopidogrel Bisulfate (Clopidogrel) 75 Mg Tablet, 75 MG PO DAILY for 30 Days, TAB Prov:SHAR GARLAND MD 10/26/16 Lorazepam* (Ativan*) 0.5 Mg Tablet, 1 MG PO HS, #30 TAB Prov:JANAE ELDRIDGE 10/09/16 Reported Medications Albuterol Sulfate* (Ventolin HFA*) 18 Gm Hfa.aer.ad, 2 PUFF INHALATION TID, #1 INHALER 10/06/16 Omeprazole* (Omeprazole*) 20 Mg Capsule.dr, 20 MG PO DAILY, #30 CAP 10/06/16 Zolpidem Tartrate* (Zolpidem Tartrate*) 10 Mg Tablet, 10 MG PO QHS Y for INSOMNIA, #30 TAB 10/06/16 Atorvastatin* (Atorvastatin*) 40 Mg Tablet, 40 MG PO QHS, #30 TAB 10/06/16 Aspirin* (Ecotrin*) 81 Mg Tablet.dr, 81 MG PO DAILY, TAB 10/06/16 Triamcinolone Acetonide* (Kenalog*) 0.1%-15GM Oint, 1 APPLIC TOP BID, #1 EA 10/06/16 Folic Acid* (Folic Acid*) 0.8 Mg Tablet, 0.8 MG PO DAILY, TAB 10/06/16 Zinc Sulfate* (Zinc Sulfate*) 220 Mg Cap, 10 MG PO DAILY, CAP 10/06/16 Magnesium Oxide (Mag Oxide) 400 Mg Capsule, 266 MG PO DAILY, CAP 10/06/16 Ubidecarenone/Vit E Acetate (CO Q-10 100 MG SOFTGEL) 1 Each Capsule, 2 EACH PO DAILY, CAP 10/06/16 Ferrous Sulfate (Iron) 134 Mg Tablet, 50 MG PO DAILY, TAB 10/06/16 Cyanocobalamin (Vitamin B12) 100 Mcg Tab, 1000 MCG PO DAILY, TAB 10/06/16 Melatonin-Pyridoxine Hcl (Melatonin) 3-10 mg Tablet, 1 TAB PO HS, TAB 10/06/16 Follow-up Plan PCP in 1 week cardiology in one week nephrology 1-2 weeks Pending Labs Laboratory Tests Test 10/25/16 17:21 10/25/16 20:52 10/26/16 02:01 10/26/16 07:49 Bedside Glucose 193mg/dL (70-220) 224mg/dL (70-220) 86mg/dL (70-220) 142mg/dL (70-220) Test 10/26/16 11:29 Bedside Glucose 170mg/dL (70-220) SHAR GARLAND MD Oct 26, 2016 15:16
== END 2016-10-26 17:51 | disposition home health service (06) | DRG 280 ==
LOC: E/R 19:18 → TEL 21:04 → PP2 10-17 22:50
PROVIDERS: ADMIT Hospitalist; ATTEND Hospitalist
PROC: 5A1D60Z (ICD-10-PCS; 2016-10-06)
PROC: B211YZZ Fluoroscopy of Multiple Coronary Arteries using Other Contrast (ICD-10-PCS; 2016-10-13)
PROC: 4A023N7 Measurement of Cardiac Sampling and Pressure, Left Heart, Percutaneous Approach (ICD-10-PCS; principal; 2016-10-13 09:00)
PROC: 05PY33Z Removal of Infusion Device from Upper Vein, Percutaneous Approach (ICD-10-PCS; 2016-10-16)
PROC: 06HM33Z Insertion of Infusion Device into Right Femoral Vein, Percutaneous Approach (ICD-10-PCS; 2016-10-19)
PROC: 05HM33Z Insertion of Infusion Device into Right Internal Jugular Vein, Percutaneous Approach (ICD-10-PCS; 2016-10-24)
DX: I13.2 Hypertensive heart and chronic kidney disease with heart failure and with stage 5 chronic kidney disease, or end stage renal disease (principal); J96.01 Acute respiratory failure with hypoxia; I21.4 Non-ST elevation (NSTEMI) myocardial infarction; J18.9 Pneumonia, unspecified organism; T82.7XXA Infection and inflammatory reaction due to other cardiac and vascular devices, implants and grafts, initial encounter; N18.6 End stage renal disease; F03.90 Unspecified dementia, unspecified severity, without behavioral disturbance, psychotic disturbance, mood disturbance, and anxiety; F05 Delirium due to known physiological condition; B96.89 Other specified bacterial agents as the cause of diseases classified elsewhere; R78.81 Bacteremia; I50.23 Acute on chronic systolic (congestive) heart failure; E87.1 Hypo-osmolality and hyponatremia; I48.91 Unspecified atrial fibrillation; E11.22 Type 2 diabetes mellitus with diabetic chronic kidney disease; D63.1 Anemia in chronic kidney disease; I16.0 Hypertensive urgency; I25.10 Atherosclerotic heart disease of native coronary artery without angina pectoris; Z99.2 Dependence on renal dialysis; Z95.5 Presence of coronary angioplasty implant and graft; Y84.1 Kidney dialysis as the cause of abnormal reaction of the patient, or of later complication, without mention of misadventure at the time of the procedure; Y92.89 Other specified places as the place of occurrence of the external cause; I44.0 Atrioventricular block, first degree; F32.9 Major depressive disorder, single episode, unspecified; I25.5 Ischemic cardiomyopathy; Z16.24 Resistance to multiple antibiotics
CPT/HCPCS: 36415; 36430; 36558; 71010; 71020; 76942; 80048; 80053; 80061; 80202; 81001; 81003; 82550; 82553; 82962; 83036; 83605; 83735; 84100; 84439; 84443; 84484; 85025; 85610; 85730; 86850; 86900; 86901; 86920; 87040; 87086; 87400; 90935; 92610; 93005; 93306; 93458; 94640; 96374; 96375; 97110; 97116; 97161; 97530; C1760; C1769; C1887; J0278; J0360; J0690; J0692; J0886; J1644; J1815; J1956; J2060; J2250; J2543; J3010; J3370; J3420; J7040; J7042; P9016; Q9967

== ENCOUNTER 2016-12-19 16:56 | Inpatient (IN) | payer OTHER ==
[~2016-12-19] VITALS: Ht 172.7 cm; Wt 81.0 kg
[~2016-12-19 16:56] MED LIST: ALBU18HF INHALATION; ASPI-716 PO; ATOR40TA68 PO; BENA40TA41 PO; CLOP75TA28 PO; CYAN100T PO; FERR134T PO; FOL8 PO; KEN1O TOP; LANT3I SC; LINA5TAB PO; LORA-441 PO; MAGN400C PO; MELA1TAB25 PO; METO50TA16 PO; NIFE60TA7 PO; OMEP20CA16 PO; UBID1CAP25 PO; ZINC220C5 PO; ZOLP10TA5 PO
[2016-12-19 17:07] VITALS: Ht 172.7 cm; Wt 81.0 kg
--- NOTE | 2016-12-19 17:38 | RADRPT ---
PROCEDURE: XR Chest. CLINICAL INDICATION: Pain TECHNIQUE: Single frontal chest x-ray. COMPARISON: 10/12/2016 FINDINGS: There is a right sided tunneled dialysis catheter in place. Bibasilar atelectasis with small pleura l effusions are slightly worsened. . Calcific atherosclerosis of the aorta is present.. The cardio mediastinal silhouette is unremarkable. The osseous structures are intact. IMPRESSION: Right sided tunneled dialysis catheter in place. Increased bibasilar atelectasis and small pleural effusions.. RPTAT: [facility] .Sacha Koch MD, Date Time Electronically viewed and signed by .Sacha Koch MD, on 12/19/2016 17:37 .L/
[2016-12-19 17:43] LABS: ADD SCAN DIFF NO
[2016-12-19 17:46] LABS: BASOPHILS % 0.3 % (0.0-2.0); EOSINOPHILS % 0.3 % (0.0-7.0); HEMATOCRIT 38.3 % (42.0-52.0); HEMOGLOBIN 12.6 g/dl (14.0-18.0); LYMPHOCYTES # 1.1 10^3/ul (0.8-2.9); LYMPHOCYTES % 11.6 % (15.0-51.0); MEAN CORPUSCULAR HEMOGLOBIN 27.8 pg (29.0-33.0); MEAN CORPUSCULAR HGB CONC 32.9 g/dl (32.0-37.0); MEAN CORPUSCULAR VOLUME 84.5 fl (82.0-101.0); MEAN PLATELET VOLUME 11.8 fl (7.4-10.4); MONOCYTE # 0.6 10^3/ul (0.3-0.9); MONOCYTES % 6.4 % (0.0-11.0); NEUTROPHIL # 7.5 10^3/ul (1.6-7.5); PLATELET COUNT 155 10^3/UL (140-415); RED BLOOD COUNT 4.53 10^6/ul (4.70-6.10); RED CELL DISTRIBUTION WIDTH 16.1 % (11.5-14.5); WHITE BLOOD COUNT 9.3 10^3/ul (4.8-10.8)
[2016-12-19 18:03] LABS: INR 1.02; PROTIME 13.4 Sec (12.2-14.2)
[2016-12-19 18:05] LABS: ALBUMIN 4.4 g/dl (3.3-4.9)
[2016-12-19 18:06] LABS: POTASSIUM 3.8 mmol/L (3.5-5.1)
[2016-12-19 18:08] LABS: ALBUMIN/GLOBULIN RATIO 1.15; BILIRUBIN,INDIRECT 0.3 mg/dl (0-1.1); BILIRUBIN,TOTAL 0.3 mg/dl (0.2-1.3); CREATININE 5.72 mg/dl (0.61-1.24); TOTAL PROTEIN 8.2 g/dl (6.1-8.1)
[2016-12-19 18:09] LABS: CALCIUM 9.6 mg/dl (8.4-10.2)
[2016-12-19 18:25] LABS: ADD UMIC YES; UR BILIRUBIN (Dip) NEGATIVE (NEGATIVE); UR BLOOD (Dip) 1+ (NEGATIVE); UR CLARITY CLEAR (CLEAR); UR COLOR LT. YELLOW (YELLOW); UR KETONES (Dip) TRACE (NEGATIVE); UR LEUKOCYTE ESTERASE (Dip) NEGATIVE (NEGATIVE); UR NITRITE (Dip) NEGATIVE (NEGATIVE); UR TOTAL PROTEIN (Dip) 4+ (NEGATIVE); UR UROBILINOGEN (Dip) 0.2 E.U./dL (0.1-1.0)
[2016-12-19 18:25] LABS: TROPONIN-I 0.286 ng/ml (0.00-0.12)
[2016-12-19] MEDS ORDERED: FURO40TA4 PO (18:37)
[2016-12-19] MEDS ORDERED: GLIP-95 PO (18:37)
[2016-12-19] MEDS ORDERED: NIFE90TA11 PO (18:37)
[2016-12-19] MEDS ORDERED: METO50TA16 PO (18:38)
[2016-12-19] MEDS ORDERED: SITA100T8 PO (18:38)
[2016-12-19] MEDS ORDERED: BENA40TA41 PO (18:39)
[2016-12-19] MEDS ORDERED: LABETALOL HCL 20MG INJ IV ONE (20:00)
--- NOTE | 2016-12-19 20:51 | RADRPT ---
PROCEDURE: CT head, without contrast. CLINICAL INDICATION: Altered mental status. TECHNIQUE: Noncontrast CT examination of the head, with axial, sagittal and coronal reformatted im ages. Automated dose exposure control was employed. CTDI: 43.18 and DLP: 141.29. COMPARISON: None. FINDINGS: Chronic changes of atrophy and small vessel disease white matter. Remote basal ganglia lacunar infa rct in the posterior left basal ganglia. No acute hemorrhage. Subarachnoid spaces are substantially preserved and symmetric. Ventricles ar e unremarkable. No mass effect. Zuniga-white matter distinction is preserved without evident decreased attenuation t o suggest acute or recent infarct. Sinuses and osseous structures are unremarkable. IMPRESSION: 1. Remote basal ganglia lacunar infarct on the left. 2. Chronic changes of atrophy and small vessel disease white matter. 3. Otherwise, no acute process in the chest. RPTAT: [facility] Physician Dee Date Time Electronically viewed and signed by Physician Dee on 12/19/2016 20:51 RS/
[2016-12-19] MEDS ORDERED: ACETAMINOPHEN 325 MG TAB PO PRN ×2 (21:00→21:30)
[2016-12-19] MEDS ORDERED: ONDANSETRON 4 MG INJ IV PRN ×2 (21:00→21:30)
--- NOTE | 2016-12-19 21:10 | ERA ---
ER Documentation Chief Complaint Date/Time DATE: 12/19/16 TIME: 20:59 Chief Complaint WEAKNESS AFTER HD HPI 76-year-old male presents to the emergency room for severe weakness after dialysis. Presents with his family member. He has had some weakness before after dialysis but never this severe. States that he was too weak to walk. Also feels confused. Is hypertensive in triage and states he is taking his blood pressure medicines normally. Denies recent fevers and chills, denies chest pain.. States that he felt well before dialysis. Dialysis was completed with 3-1/2 L taken. According to family member the patient has a 20% ejection fraction. ROS All systems reviewed and are negative except as per history of present illness. Medications Home Meds Active Scripts Nifedipine (Afeditab CR) 60 Mg Tablet.sa, 60 MG PO AM for 30 Days Prov:SHAR GARLAND MD 10/26/16 Clopidogrel Bisulfate (Clopidogrel) 75 Mg Tablet, 75 MG PO DAILY for 30 Days, TAB Prov:SHAR GARLAND MD 10/26/16 Reported Medications Benazepril Hcl* (Benazepril Hcl*) 40 Mg Tablet, 40 MG PO DAILY, #30 TAB 12/19/16 Metoprolol Succinate* (Toprol XL*) 50 Mg Tab.er.24h, 75 MG PO DAILY, #30 TAB 12/19/16 Sitagliptin* (Januvia*) 100 Mg Tablet, 100 MG PO DAILY, #30 TAB 12/19/16 Glipizide* (Glipizide*) 10 Mg Tablet, 10 MG PO DAILY, TAB 12/19/16 Furosemide* (Furosemide*) 40 Mg Tablet, 40 MG PO BID, TAB 12/19/16 Nifedipine* (Nifedipine ER*) 90 Mg Tablet.er, 90 MG PO QAM, TAB 12/19/16 Omeprazole* (Omeprazole*) 20 Mg Capsule.dr, 20 MG PO DAILY, #30 CAP 10/06/16 Zolpidem Tartrate* (Zolpidem Tartrate*) 10 Mg Tablet, 10 MG PO QHS Y for INSOMNIA, #30 TAB 10/06/16 Discontinued Reported Medications Albuterol Sulfate* (Ventolin HFA*) 18 Gm Hfa.aer.ad, 2 PUFF INHALATION TID, #1 INHALER 10/06/16 Atorvastatin* (Atorvastatin*) 40 Mg Tablet, 40 MG PO QHS, #30 TAB 10/06/16 Aspirin* (Ecotrin*) 81 Mg Tablet.dr, 81 MG PO DAILY, TAB 10/06/16 Triamcinolone Acetonide* (Kenalog*) 0.1%-15GM Oint, 1 APPLIC TOP BID, #1 EA 10/06/16 Folic Acid* (Folic Acid*) 0.8 Mg Tablet, 0.8 MG PO DAILY, TAB 10/06/16 Zinc Sulfate* (Zinc Sulfate*) 220 Mg Cap, 10 MG PO DAILY, CAP 10/06/16 Magnesium Oxide (Mag Oxide) 400 Mg Capsule, 266 MG PO DAILY, CAP 10/06/16 Ubidecarenone/Vit E Acetate (CO Q-10 100 MG SOFTGEL) 1 Each Capsule, 2 EACH PO DAILY, CAP 10/06/16 Ferrous Sulfate (Iron) 134 Mg Tablet, 50 MG PO DAILY, TAB 10/06/16 Cyanocobalamin (Vitamin B12) 100 Mcg Tab, 1000 MCG PO DAILY, TAB 10/06/16 Melatonin-Pyridoxine Hcl (Melatonin) 3-10 mg Tablet, 1 TAB PO HS, TAB 10/06/16 Discontinued Scripts Linagliptin (TRADJENTA) 5 Mg Tablet, 5 MG PO DAILY for 30 Days, TAB Prov:SHAR GARLAND MD 10/26/16 Insulin Glargine* (Lantus*) 100 Unit/Ml Soln, 10 UNIT SC HS for 30 Days Prov:SHAR GARLAND MD 10/26/16 Metoprolol Succinate* (Toprol XL*) 50 Mg Tab.er.24h, 50 MG PO BID for 30 Days Prov:SHAR GARLAND MD 10/26/16 Benazepril Hcl* (Benazepril Hcl*) 40 Mg Tablet, 40 MG PO BID for 30 Days, TAB Prov:SHAR GARLAND MD 10/26/16 Lorazepam* (Ativan*) 0.5 Mg Tablet, 1 MG PO HS, #30 TAB Prov:JANAE ELDRIDGE 10/09/16 Allergies Allergies: Coded Allergies: No Known Allergy (Unverified , 12/19/16) PMhx/Soc History of Surgery: Yes (PERMACATH ) Anesthesia Reaction: No Hx Neurological Disorder: No Hx Respiratory Disorders: No Hx Cardiac Disorders: Yes (CAD, A. FIB, HTN.) Hx Psychiatric Problems: No Hx Miscellaneous Medical Probl: Yes (A-Fib, CAD, DM, ESRD) Hx Alcohol Use: No Hx Substance Use: No Hx Tobacco Use: No Smoking Status: Unknown if ever smoked Physical Exam Vitals Vital Signs Date Time Temp Pulse Resp B/P Pulse Ox O2 Delivery O2 Flow Rate FiO2 12/19/16 20:55 80 176/103 12/19/16 19:55 88 204/98 12/19/16 17:07 98.7 88 22 164/106 99 12/19/16 17:06 97.7 91 17 164/109 98 Physical Exam Const: [] No distress Head: Atraumatic Eyes: Normal Conjunctiva, EOMI, PRL ENT: Normal External Ears, Nose and Mouth. Neck: Full range of motion..~ No meningismus. Mild JVD Resp: Mild decreased bibasilar breath sounds Cardio: Regular rate and rhythm, mild systolic murmur. Abd: Soft, non tender, non distended. Normal bowel sounds Skin: No petechiae or rashes Back: No midline or flank tenderness Ext: No cyanosis, or edema Neur: Awake and alert and oriented 2, and is not know the month, occasionally tries to speak and forgets what he was going to say. Somewhat confused. Cranial nerves II through XII intact, no cerebellar deficits, gait not tested Psych: Normal Mood and Affect Result Diagram: 12/19/16 1726 12/19/16 1726 Results 24 hrs Laboratory Tests Test 12/19/16 17:26 12/19/16 18:09 White Blood Count 9.310^3/ul Red Blood Count 4.5310^6/ul Hemoglobin 12.6g/dl Hematocrit 38.3% Mean Corpuscular Volume 84.5fl Mean Corpuscular Hemoglobin 27.8pg Mean Corpuscular Hemoglobin Concent 32.9g/dl Red Cell Distribution Width 16.1% Platelet Count 79572^3/UL Mean Platelet Volume 11.8fl Neutrophils % 81.0% Lymphocytes % 11.6% Monocytes % 6.4% Eosinophils % 0.3% Basophils % 0.3% Nucleated Red Blood Cells % 0.0/100WBC Neutrophils # 7.510^3/ul Lymphocytes # 1.110^3/ul Monocytes # 0.610^3/ul Eosinophils # 0.010^3/ul Basophils # 0.010^3/ul Nucleated Red Blood Cells # 0.010^3/ul Prothrombin Time 13.4Sec Prothrombin Time Ratio 1.0 INR International Normalized Ratio 1.02 Activated Partial Thromboplast Time 28.0Sec Sodium Level 141mmol/L Potassium Level 3.8mmol/L Chloride Level 96mmol/L Carbon Dioxide Level 28mmol/L Anion Gap 21 Blood Urea Nitrogen 60mg/dl Creatinine 5.72mg/dl Glucose Level 126mg/dl Lactic Acid Level 1.5mmol/L Calcium Level 9.6mg/dl Total Bilirubin 0.3mg/dl Direct Bilirubin 0.00mg/dl Indirect Bilirubin 0.3mg/dl Aspartate Amino Transf (AST/SGOT) 26IU/L Alanine Aminotransferase (ALT/SGPT) 30IU/L Alkaline Phosphatase 108IU/L Troponin I 0.286ng/ml Total Protein 8.2g/dl Albumin 4.4g/dl Globulin 3.80g/dl Albumin/Globulin Ratio 1.15 Urine Color LT. YELLOW Urine Clarity CLEAR Urine pH 6.0 Urine Specific [place] 1.015 Urine Ketones TRACE Urine Nitrite NEGATIVE Urine Bilirubin NEGATIVE Urine Urobilinogen 0.2 E.U./dL Urine Leukocyte Esterase NEGATIVE Urine Microscopic RBC 2-5/HPF Urine Microscopic WBC NONE SEEN/HPF Urine Epithelial Cells OCCASIONAL Urine Hemoglobin 1+ Urine Glucose 0.25%% Urine Total Protein 4+ Current Medications Medications (Trade) Dose Ordered Sig/Tariq Route PRN Reason Start Time Stop Time Status Last Admin Dose Admin Labetalol HCl (Labetalol) 20 mg ONCE ONCE IV 12/19/16 20:00 12/19/16 20:01 DC 12/19/16 19:55 Ondansetron HCl (Zofran Inj) 4 mg ER BRIDGE PRN IV NAUSEA AND/OR VOMITING 12/19/16 21:00 12/20/16 20:59 Acetaminophen (Tylenol Tab) 650 mg ER BRIDGE PRN PO MILD PAIN/FEVER 12/19/16 21:00 12/20/16 20:59 Procedures/MDM Concerning acute generalized weakness with some altered mental status and a 76- year-old male. Patient has multiple comorbidities including a 20% ejection fraction. Also had hypertensive urgency in the emergency room the need to be treated with IV labetalol. Family is concerned that the patient is experiencing much more extreme symptoms than usual after dialysis. Is not usually confused. Head CT is currently negative and I have low suspicion for acute CVA. Because of the family's concerns and all the comorbidities I believe is beneficial to observe this patient overnight for resolution. No signs of infection currently. Blood pressure was able to be lowered in the emergency room. EKG interpretation: Atrial fibrillation rate of 82, normal axis, inverted or biphasic T waves in all precordial leads consistent with prior EKG done last month. No acute changes. school bus monitor interpretation: Irregularly irregular consistent with atrial fibrillation. No other arrhythmias CT head interpretation: Old lacunar infarct with no signs of acute process, no hemorrhage, no mass-effect no midline shift, no skull fracture Chest x-ray interpretation: Mild bilateral pleural effusions, no pneumothorax, no infiltrate, engorgement of pulmonary vasculature consistent with congestive heart failure, no fractures Critical care time 36 minutes: This includes treatment of hypertensive urgency the patient has very poor systolic function, use of IV medication labetalol, multiple visits the patient's bedside to reassess status, chart reviewed, discussion with patient, family admitting doctor. This does not include any billable procedures. Departure Diagnosis: Primary Impression: Acute weakness Additional Impressions: Hypertensive urgency Altered mental status Atrial fibrillation Condition: Serious LEESAALEJANDROJULIO CTRACE WAGONER December 19, 2016 21:10
[2016-12-19 21:30] VITALS: BP 182/100; PULSE 20; RESP 20
[2016-12-19] MEDS ORDERED: FAMOTIDINE 20 MG INJ IV SCH (21:30)
[2016-12-19] MEDS ORDERED: NACL 0.9% 3 ML SYG IV SCH (21:30)
[2016-12-19 21:37] VITALS: PULSE 78
[2016-12-19 21:50] VITALS: BP 182/100; RESP 20
[2016-12-19] MEDS ORDERED: DEXTROSE 50% 50 ML SYRINGE IV PRN ×2 (22:00)
[2016-12-19] MEDS ORDERED: GLUCOSE GEL 15 GRAM TUBE BUCCAL PRN (22:00)
[2016-12-19] MEDS ORDERED: GLUCOSE GEL 15 GRAM TUBE PO PRN ×2 (22:00)
[2016-12-19] MEDS ORDERED: GLUCAGON 1 MG INJ IM PRN (22:00)
[2016-12-19] MEDS: BENAZEPRIL 40 MG TAB PO SCH (22:10)
[2016-12-19] MEDS: METOPROLOL (XL) 25 MG TAB PO SCH (22:11)
[2016-12-19] MEDS: hydrALAzine 20 MG INJ IV PRN (22:11)
[2016-12-19] MEDS: HEPARIN 5,000 UNIT/0.5 ML VIAL SC SCH (22:24)
[2016-12-19 22:45] LABS: CK-MB 2.93 ng/ml (0.0-2.4); TROPONIN-I 0.403 ng/ml (0.00-0.12)
--- NOTE | 2016-12-19 23:36 | HP ---
Date/Time of Note Date/Time of Note DATE: 12/19/16 TIME: 23:36 Assessment/Plan VTE Prophylaxis VTE Prophylaxis Intervention: SCD's Assessment/Plan Chief Complaint/Hosp Course This is a 76-year-old male being admitted to telemetry floor for: #1 weakness: Patient currently states that he has been feeling weak for the past 3 days however it appears to have worsened after dialysis today. He did have approximately 3-1/2 liters taken out as per the patient. There are some small pleural effusion seen on the chest x-ray. There could be some mild dehydration at play. At the current time patient denies any active chest pain or shortness of breath. Renal diet. Will consult nephrology and cardiology. #2 elevated troponin: First set of cardiac troponin is elevated however this is much lower than his previous troponins during his previous admission. We will continue to trend this patient currently denies any active chest pain. #3 atrial fibrillation: Patient currently appears to be in atrial fibrillation based on EKG and telemetry monitoring. He is currently rate controlled. He is not on any anticoagulation at this point. Will consult cardiology for further anticoagulants recommendations and consider heparin. #4 systolic heart failure: Patient's most recent echocardiogram showed an EF of 25%. Will consult cardiology. Continue current home medications aspirin Plavix beta-julia and Lasix. #4 end-stage renal disease: We will consult nephrology. Continue home Lasix. Renal diet. Avoid nephrotoxic agents. #5 Hypertension: Continue home blood pressure medications, as needed hydralazine. #6 diabetes: We will hold home diabetes medication, start insulin sliding scale #7 DVT and GI prophylaxis: SCDs, acid julia Further treatment strategy will be implemented as per the clinical course Problems: HPI/ROS Admit Date/Time Admit Date/Time December 19, 2016 at 20:57 Hx of Present Illness Chief complaint: Weakness 76-year-old male presents to the emergency room for severe weakness after dialysis. Presents with his family member. He has had some weakness before after dialysis but never this severe. States that he was too weak to walk. Also feels confused. Is hypertensive in triage and states he is taking his blood pressure medicines normally. Denies recent fevers and chills, denies chest pain.. States that he felt well before dialysis. Dialysis was completed with 3-1/2 L taken. According to family member the patient has a 20% ejection fraction. Allergies: NKDA Medications: See MAR ROS Const: As per HPI Eyes : No pain discharge or redness or change in visual acuity ENT: No pain, sore throat, congestion, congestion, dysphagia or discharge Respiratory: No shortness of breath, cough, sputum, wheezing, or pleuritic pain Cardiovascular: No chest pain, palpitation, PND, or edema GI : no change in appetite, abdominal pain, nausea, vomiting, diarrhea, constipation, or change in the color his stool Genitourinary: No dysuria, hematuria, flank pain , discharge or CVA tenderness Musculoskeletal: As per HPI Skin: No rash, bruising or hives Neuro: As per HPI Endocrine: No polyuria, polydipsia, temperature intolerance Psych: No hallucination, depression, anxiety or suicidal ideation PMH/Family/Social Past Medical History History of atrial fib, CHF with echo showing ejection fraction of 25%, renal failure, hypertension, diabetes mellitus, bacteremia secondary to infected Port- A-Cath. Past Surgical History Left heart cath, Port-A-Cath removal Family History Significant Family History: diabetes (Mom) Social History Alcohol Use: rarely Smoking Status: Never smoker Drug Use: none Exam/Review of Systems Vital Signs Vitals Vital Signs Date Time Temp Pulse Resp B/P Pulse Ox O2 Delivery O2 Flow Rate FiO2 12/19/16 21:37 78 12/19/16 20:55 176/103 12/19/16 17:07 98.7 22 99 Exam Exam General: Patient is well-developed well-nourished and was sleeping comfortably in bed prior to my history and physical examination. HEENT: Atraumatic, normocephalic. The pupils are equal, round and reactive. Extraocular motor are intact Neck: Supple with full range of motion. No rigidity or meningismus Chest: Nontender Lungs: Clear to auscultation bilaterally no crackles rales or wheezing Heart: Normal S1-S2, Regular rhythm and rate. Abdomen: Soft , nontender, nondistended , bowel sounds are present. No guarding no rebound tenderness , No masses or organomegaly. No costovertebral temporal angle mass Extremities: Normal to inspection, no edema no cyanosis Neurologic: Normal mental status, speech normal, cranial nerves II through XII are intact, motor and sensory are intact, patient is able to move bilateral upper and lower extremities without any problem. Strength 5 out of 5 in bilateral upper and lower extremities. Additional Comments EKG interpretation: Atrial fibrillation rate of 82, normal axis, inverted or biphasic T waves in all precordial leads consistent with prior EKG done last month. No acute changes. As per ED physician documentation. PROCEDURE: XR Chest. CLINICAL INDICATION: Pain TECHNIQUE: Single frontal chest x-ray. COMPARISON: 10/12/2016 FINDINGS: There is a right sided tunneled dialysis catheter in place. Bibasilar atelectasis with small pleural effusions are slightly worsened. . Calcific atherosclerosis of the aorta is present.. The cardiomediastinal silhouette is unremarkable. The osseous structures are intact. IMPRESSION: Right sided tunneled dialysis catheter in place. Increased bibasilar atelectasis and small pleural effusions.. RPTAT: HJ[facility] .Sacha Koch MD, Date Time Electronically viewed and signed by .Sacha Koch MD, MD on 12/19/2016 17:37 PROCEDURE: CT head, without contrast. CLINICAL INDICATION: Altered mental status. TECHNIQUE: Noncontrast CT examination of the head, with axial, sagittal and coronal reformatted images. Automated dose exposure control was employed. CTDI: 43.18 and DLP: 141.29. COMPARISON: None. FINDINGS: Chronic changes of atrophy and small vessel disease white matter. Remote basal ganglia lacunar infarct in the posterior left basal ganglia. No acute hemorrhage. Subarachnoid spaces are substantially preserved and symmetric. Ventricles are unremarkable. No mass effect. Zuniga-white matter distinction is preserved without evident decreased attenuation to suggest acute or recent infarct. Sinuses and osseous structures are unremarkable. IMPRESSION: 1. Remote basal ganglia lacunar infarct on the left. 2. Chronic changes of atrophy and small vessel disease white matter. 3. Otherwise, no acute process in the chest. RPTAT: [facility] Physician Dee Date Time Electronically viewed and signed by Physician Dee on 12/19/2016 20:51 Labs Result Diagram: 12/19/16 1726 12/19/16 1726 Medications Medications Current Medications Ondansetron HCl (Zofran Inj) 4 mg Q6H PRN IV NAUSEA AND/OR VOMITING; Start at 21:30 Acetaminophen (Tylenol Tab) 650 mg Q6H PRN PO PAIN LEVEL 1-3 OR FEVER; Start at 21:30 Famotidine (Pepcid Iv) 20 mg Q24H IV Last administered on 12/19/16 22:10; Admin Dose 20 MG; Start 12/19/16 at 21:30 Heparin Sodium (Porcine) (Heparin (5000 Units/0.5 ml)) 5,000 unit Q8 SC Last administered on 12/19/16 22:24; Admin Dose 5,000 UNIT; Start 12/19/16 at 22:00 Benazepril HCl (Lotensin) 40 mg DAILY PO Last administered on 12/19/16 22:10; Admin Dose 40 MG; Start 12/19/16 at 22:00 Clopidogrel Bisulfate (plaVIX) 75 mg DAILY PO ; Start 12/20/16 at 09:00 Hydralazine HCl (Apresoline) 10 mg Q6H PRN IV ELEVATED BLOOD PRESSURE Last administered on 12/19/16 22:11; Admin Dose 10 MG; Start 12/19/16 at 22:00 Diagnostic Test (Pha) (Accu-Chek) 1 ea 02 XX ; Start 12/20/16 at 02:00 Metoprolol Succinate (Toprol Xl) 75 mg DAILY PO Last administered on 12/19/16 22:11; Admin Dose 75 MG; Start 12/19/16 at 22:00 Miscellaneous Information 1 ea NOTE XX ; Start 12/19/16 at 22:00 Glucose (Glutose) 15 gm Q15M PRN PO DECREASED GLUCOSE; Start 12/19/16 at 22:00 Glucose (Glutose) 22.5 gm Q15M PRN PO DECREASED GLUCOSE; Start 12/19/16 at 22: 00 Dextrose (D50w Syringe) 25 ml Q15M PRN IV DECREASED GLUCOSE; Start 12/19/16 at 22:00 Dextrose (D50w Syringe) 50 ml Q15M PRN IV DECREASED GLUCOSE; Start 12/19/16 at 22:00 Glucagon (Glucagen) 1 mg Q15M PRN IM DECREASED GLUCOSE; Start 12/19/16 at 22:00 Glucose (Glutose) 15 gm Q15M PRN BUCCAL DECREASED GLUCOSE; Start 12/19/16 at 22 :00 ATILIO KHANNA December 19, 2016 23:36 ATILIO KHANNA December 19, 2016 23:36
[2016-12-19 23:39] VITALS: BP 181/88; RESP 18
[2016-12-19] MEDS ORDERED: NIFEdipine (XL) 30 MG TAB PO ONE (23:45)
[2016-12-20] VITALS (11 sets, daily range): BP systolic 101–157; BP diastolic 64–86; PULSE 78–97; RESP 16–19
[2016-12-20] MEDS ORDERED: NIFEdipine (XL) 90 MG TAB PO ONE
[2016-12-20] MEDS: FUROSEMIDE 40 MG TAB PO SCH ×2 (00:41)
[2016-12-20] MEDS: ACCU-CHEK XX SCH (02:00)
[2016-12-20 04:06] LABS: ADD SCAN DIFF NO
[2016-12-20 04:30] LABS: BASOPHILS % 0.3 % (0.0-2.0); EOSINOPHILS % 0.1 % (0.0-7.0); HEMATOCRIT 35.3 % (42.0-52.0); HEMOGLOBIN 11.9 g/dl (14.0-18.0); LYMPHOCYTES % 12.8 % (15.0-51.0); MEAN CORPUSCULAR HEMOGLOBIN 28.5 pg (29.0-33.0); MEAN CORPUSCULAR HGB CONC 33.7 g/dl (32.0-37.0); MEAN CORPUSCULAR VOLUME 84.7 fl (82.0-101.0); MEAN PLATELET VOLUME 11.7 fl (7.4-10.4); MONOCYTE # 0.6 10^3/ul (0.3-0.9); NEUTROPHIL # 6.2 10^3/ul (1.6-7.5); NEUTROPHILS % 78.4 % (39.0-77.0); PLATELET COUNT 137 10^3/UL (140-415); RED BLOOD COUNT 4.17 10^6/ul (4.70-6.10); RED CELL DISTRIBUTION WIDTH 16.1 % (11.5-14.5); WHITE BLOOD COUNT 7.9 10^3/ul (4.8-10.8)
[2016-12-20 04:38] LABS: ALBUMIN 3.7 g/dl (3.3-4.9); POTASSIUM 4.4 mmol/L (3.5-5.1)
[2016-12-20 04:40] LABS: BILIRUBIN,INDIRECT 0.2 mg/dl (0-1.1); BILIRUBIN,TOTAL 0.2 mg/dl (0.2-1.3); CREATININE 6.85 mg/dl (0.61-1.24)
[2016-12-20 04:41] LABS: ALBUMIN/GLOBULIN RATIO 1.15; CALCIUM 9.4 mg/dl (8.4-10.2); MAGNESIUM 1.8 mg/dl (1.7-2.5); TOTAL PROTEIN 6.9 g/dl (6.1-8.1)
[2016-12-20 04:49] LABS: CK-MB 2.32 ng/ml (0.0-2.4)
[2016-12-20 04:52] LABS: TROPONIN-I 0.389 ng/ml (0.00-0.12)
[2016-12-20] MEDS ORDERED: HEPARIN 1000 UNITS/ML 10 ML INJ IV ONE (05:00)
[2016-12-20 05:39] LABS: THYROID STIMULATING HORMONE 2.81 MIU/L (0.465-4.680)
[2016-12-20] MEDS: HEPARIN 5,000 UNIT/0.5 ML VIAL SC SCH (06:05)
[2016-12-20] MEDS: INSULIN ASPART [NOVOLOG] 3 ML PEN SC SCH ×4 (07:55→20:31)
[2016-12-20] MEDS: CLOPIDOGREL 75 MG TAB PO SCH (08:37)
[2016-12-20] MEDS: NIFEdipine (XL) 90 MG TAB PO SCH (08:37)
[2016-12-20] MEDS: METOPROLOL (XL) 25 MG TAB PO SCH (08:38)
[2016-12-20] MEDS: BENAZEPRIL 40 MG TAB PO SCH (08:39)
[2016-12-20] MEDS ORDERED: METOPROLOL (XL) 50 MG TAB PO SCH (09:00)
--- NOTE | 2016-12-20 09:57 | CONS ---
DATE OF ADMISSION: 12/19/2016 DATE OF CONSULTATION: 12/20/2016 NEPHROLOGY CONSULTATION REASON FOR CONSULTATION: End-stage renal disease. REQUESTING PHYSICIAN: Dr. Jennings HISTORY OF PRESENT ILLNESS: This is a 76-year-old male with a past medical history of end-stage chelsy al disease on Monday, Monday, Monday, access PermCath, last hemodialysis yesterday, history of co ronary artery disease who presented to [facility] from his dialysis center with ge neral weakness. The patient had hemodialysis yesterday with approximately 3.5 liters removed. Foll owing dialysis the patient felt generally weak, lethargic. As a result, he came into the emergency room for evaluation. Upon arrival, the patient had a CT scan of the brain which showed findings of a lacunar infarct, but no acute process noted. These findings were chronic. Chest x-ray showed no acute findings. In the emergency room, the patient was noted to be hypertensive and was given labet alol, admitted to med/surg telemetry for evaluation. Upon my evaluation, the patient at this time is currently stable, is currently describing weakness a nd lethargy, but denies any episodes of hemoptysis, hemetemesis, hematochezia. PAST MEDICAL HISTORY: As stated above, history of hypertension, history of anemia, history of end-s tage renal disease, history of coronary artery disease, history of diabetes. PAST SURGICAL HISTORY: Status post PermCath placement. FAMILY HISTORY: Noncontributory. MEDICATIONS: Have been reviewed. ALLERGIES: NO KNOWN DRUG ALLERGIES. REVIEW OF SYSTEMS: A 14-point review of systems was conducted. Pertinent positives as stated in HP I, otherwise negative. PHYSICAL EXAMINATION: VITAL SIGNS: Blood pressure is currently 157/86, respirations 18, pulse 88, temperature 98.3. HEENT: Head is normocephalic. NECK: Supple. HEART: Regular rate. LUNGS: Show diminished breath sounds at the base. ABDOMEN: Soft, nontender to palpation, no rebound or guarding. EXTREMITIES: Negative for clubbing, cyanosis, no edema. DERMATOLOGIC: No rashes. MUSCULOSKELETAL: No joint effusions. NEUROLOGIC: No focal deficits. MEDICATIONS: The patient's medications have been reviewed. LABORATORY DATA: Shows sodium 139, potassium 4.4, creatinine 99, BUN 70, creatinine 6.85, hemoglobi n A1c 6.1. White count 7.9, hemoglobin 11.9, hematocrit 35.3, platelet count 137. ASSESSMENT AND PLAN: This is a 76-year-old male who presents with: 1. End-stage renal disease. The patient is on dialysis Monday, Monday, Monday with access Perm- A-Cath. Plan is for hemodialysis tomorrow. Will dialyze for 3 hours, 3 K bath, calcium 2.5, ultraf iltrate as tolerated. 2. Hypertension in part due to increased intravascular volume. Continue current blood pressure reg imen. Continue ultrafiltration dialysis. 3. Anemia of chronic disease. Continue to monitor H and H levels. Will give Epogen as needed. 4. Mineral bone disorder. Will monitor calcium and phosphorus levels. Will give phosphate binders as needed. 5. Weakness. Underlying etiology is unclear, possibly related to hemodialysis, hypertensive urgenc y. Will continue to monitor on telemetry. 6. Elevated troponin, possible [id number] myocardial infarction type 2 versus type 1. Contin ue medical management. Follow up with cardiology. 7. Atrial fibrillation, currently rate controlled. Continue medical management. 8. History of congestive heart failure. The patient appears near euvolemic status. Continue medic al management. Continue to ultrafiltration dialysis. 9. Diabetes. Continue Accu-Cheks, insulin sliding scale. Thank you, Dr. Jennings, for this interesting consult. It will be a pleasure to follow the patient wit kristina pastrana throughout the hospital course. Dictated By: NOEMI BOTELLO/NTS Conf#: [id number] DID#: [id number]
--- NOTE | 2016-12-20 10:41 | PN ---
Date/Time of Note Date/Time of Note DATE: 12/20/16 TIME: 10:36 Assessment/Plan VTE Prophylaxis VTE Prophylaxis Intervention: SCD's Lines/Catheters IV Catheter Type (from [facility]): Saline Lock Urinary Cath still in place: No Assessment/Plan Assessment/Plan This is a 76-year-old male being admitted to telemetry floor for: #1 weakness: Improved / PT eval #2 elevated troponin: Troponin leak vs NSTEMI / recent LHC / f/u cardio recs #3 Paroxysmal atrial fibrillation: rate controlled / anticoagulation / await PT eval to ensure patient is not a fall risk #4 systolic heart failure: Patient's most recent echocardiogram showed an EF of 25%. Continue current home medications aspirin Plavix beta-julia and Lasix. #5 end-stage renal disease: HD per nephro, Renal diet. Avoid nephrotoxic agents. #5 Hypertension: stable #6 Diabetes type 2 : titrate meds for optimal control #7 DVT and GI prophylaxis: SCDs, acid julia Subjective 24 Hr Interval Summary Free Text/Dictation Patient seen and examined. had multiple questions about his meds Exam/Review of Systems Vital Signs Vitals Vital Signs Date Time Temp Pulse Resp B/P Pulse Ox O2 Delivery O2 Flow Rate FiO2 12/20/16 08:11 88 12/20/16 08:02 Nasal Cannula 2.0 12/20/16 07:27 98.3 18 157/86 98 Intake and Output 12/19/16 12/19/16 12/20/16 15:00 23:00 07:00 Intake Total 300 ml Balance 300 ml Exam General: Patient is well-developed well-nourished and was sleeping comfortably in bed prior to my history and physical examination. HEENT: Atraumatic, normocephalic. The pupils are equal, round and reactive. Extraocular motor are intact Neck: Supple with full range of motion. No rigidity or meningismus Chest: Nontender Lungs: Clear to auscultation bilaterally no crackles rales or wheezing Heart: Normal S1-S2, Regular rhythm and rate. Abdomen: Soft , nontender, nondistended , bowel sounds are present. No guarding no rebound tenderness , No masses or organomegaly. No costovertebral temporal angle mass Extremities: Normal to inspection, no edema no cyanosis Neurologic: Normal mental status, speech normal, patient is able to move bilateral upper and lower extremities without any problem. Results Result Diagram: 12/20/16 0342 12/20/16 0342 Results 24 hrs Laboratory Tests Test 12/19/16 17:26 12/19/16 18:09 12/19/16 21:59 12/20/16 03:42 White Blood Count 9.3 7.9 Red Blood Count 4.53 #L 4.17 L Hemoglobin 12.6 #L 11.9 L Hematocrit 38.3 #L 35.3 L Mean Corpuscular Volume 84.5 84.7 Mean Corpuscular Hemoglobin 27.8 L 28.5 L Mean Corpuscular Hemoglobin Concent 32.9 33.7 Red Cell Distribution Width 16.1 H 16.1 H Platelet Count 155 # 137 L Mean Platelet Volume 11.8 H 11.7 H Neutrophils % 81.0 H 78.4 H Lymphocytes % 11.6 L 12.8 L Monocytes % 6.4 8.0 Eosinophils % 0.3 0.1 Basophils % 0.3 0.3 Nucleated Red Blood Cells % 0.0 0.0 Neutrophils # 7.5 6.2 Lymphocytes # 1.1 1.0 Monocytes # 0.6 0.6 Eosinophils # 0.0 0.0 Basophils # 0.0 0.0 Nucleated Red Blood Cells # 0.0 0.0 Prothrombin Time 13.4 Prothrombin Time Ratio 1.0 INR International Normalized Ratio 1.02 Activated Partial Thromboplast Time 28.0 Sodium Level 141 139 Potassium Level 3.8 4.4 Chloride Level 96 L 99 Carbon Dioxide Level 28 27 Anion Gap 21 H 17 H Blood Urea Nitrogen 60 H 70 H Creatinine 5.72 H 6.85 H Glucose Level 126 188 Lactic Acid Level 1.5 Calcium Level 9.6 9.4 Total Bilirubin 0.3 0.2 Direct Bilirubin 0.00 0.00 Indirect Bilirubin 0.3 0.2 Aspartate Amino Transf (AST/SGOT) 26 21 Alanine Aminotransferase (ALT/SGPT) 30 30 Alkaline Phosphatase 108 74 Troponin I 0.286 *H 0.403 *H 0.389 *H Total Protein 8.2 H 6.9 # Albumin 4.4 3.7 Globulin 3.80 H 3.20 Albumin/Globulin Ratio 1.15 1.15 Urine Color LT. YELLOW Urine Clarity CLEAR Urine pH 6.0 Urine Specific [place] 1.015 Urine Ketones TRACE Urine Nitrite NEGATIVE Urine Bilirubin NEGATIVE Urine Urobilinogen 0.2 E.U./dL Urine Leukocyte Esterase NEGATIVE Urine Microscopic RBC 2-5 Urine Microscopic WBC NONE SEEN Urine Epithelial Cells OCCASIONAL Urine Hemoglobin 1+ H Urine Glucose 0.25% H Urine Total Protein 4+ H Creatine Kinase 35 33 Creatine Kinase Index 8.4 7.0 Creatinine Kinase MB (Mass) 2.93 H 2.32 Hemoglobin A1c 6.1 H Magnesium Level 1.8 Thyroid Stimulating Hormone (TSH) 2.810 Test 12/20/16 07:56 Bedside Glucose 183 Medications Medications Current Medications Ondansetron HCl (Zofran Inj) 4 mg Q6H PRN IV NAUSEA AND/OR VOMITING; Start at 21:30 Acetaminophen (Tylenol Tab) 650 mg Q6H PRN PO PAIN LEVEL 1-3 OR FEVER; Start at 21:30 Famotidine (Pepcid Iv) 20 mg Q24H IV Last administered on 12/19/16 22:10; Admin Dose 20 MG; Start 12/19/16 at 21:30 Benazepril HCl (Lotensin) 40 mg DAILY PO Last administered on 12/19/16 22:10; Admin Dose 40 MG; Start 12/19/16 at 22:00 Clopidogrel Bisulfate (plaVIX) 75 mg DAILY PO Last administered on 12/20/16 08 :37; Admin Dose 75 MG; Start 12/20/16 at 09:00 Hydralazine HCl (Apresoline) 10 mg Q6H PRN IV ELEVATED BLOOD PRESSURE Last administered on 12/19/16 22:11; Admin Dose 10 MG; Start 12/19/16 at 22:00 Diagnostic Test (Pha) (Accu-Chek) 1 ea 02 XX ; Start 12/20/16 at 02:00 Metoprolol Succinate (Toprol Xl) 75 mg DAILY PO Last administered on 12/20/16 08:38; Admin Dose 75 MG; Start 12/19/16 at 22:00 Miscellaneous Information 1 ea NOTE XX ; Start 12/19/16 at 22:00 Glucose (Glutose) 15 gm Q15M PRN PO DECREASED GLUCOSE; Start 12/19/16 at 22:00 Glucose (Glutose) 22.5 gm Q15M PRN PO DECREASED GLUCOSE; Start 12/19/16 at 22: 00 Dextrose (D50w Syringe) 25 ml Q15M PRN IV DECREASED GLUCOSE; Start 12/19/16 at 22:00 Dextrose (D50w Syringe) 50 ml Q15M PRN IV DECREASED GLUCOSE; Start 12/19/16 at 22:00 Glucagon (Glucagen) 1 mg Q15M PRN IM DECREASED GLUCOSE; Start 12/19/16 at 22:00 Glucose (Glutose) 15 gm Q15M PRN BUCCAL DECREASED GLUCOSE; Start 12/19/16 at 22 :00 Furosemide (Lasix) 40 mg BID@06,18 PO ; Start 12/20/16 at 00:00; Status Future Hold Nifedipine (Procardia Xl) 90 mg QAM PO Last administered on 12/20/16t 08:37; Admin Dose 90 MG; Start 12/20/16 at 09:00 Apixaban (Eliquis) 2.5 mg BID PO ; Start 12/20/16 at 21:00 XANDER ROCHA December 20, 2016 10:41 XANDER ROCHA December 20, 2016 10:41
[2016-12-20] MEDS: FAMOTIDINE 20 MG TAB PO SCH (20:27)
[2016-12-20] MEDS: APIXABAN 5 MG TABLET PO SCH (20:27)
[2016-12-21] VITALS (20 sets, daily range): BP systolic 105–160; BP diastolic 45–85; PULSE 57–77; RESP 16–19
[2016-12-21] MEDS: ACCU-CHEK XX SCH (02:00)
[2016-12-21 06:41] LABS: ADD SCAN DIFF NO
[2016-12-21 07:10] LABS: POTASSIUM 4.6 mmol/L (3.5-5.1)
[2016-12-21 07:12] LABS: CREATININE 8.8 mg/dl (0.61-1.24)
[2016-12-21 07:13] LABS: CALCIUM 9.2 mg/dl (8.4-10.2); PHOSPHORUS 6.8 mg/dl (2.5-4.9)
[2016-12-21] MEDS: INSULIN ASPART [NOVOLOG] 3 ML PEN SC SCH ×4 (07:55→21:00)
[2016-12-21] MEDS: BENAZEPRIL 40 MG TAB PO SCH ×2 (08:02→08:08)
[2016-12-21] MEDS: CLOPIDOGREL 75 MG TAB PO SCH (08:02)
[2016-12-21] MEDS: NIFEdipine (XL) 90 MG TAB PO SCH (08:02)
[2016-12-21] MEDS: APIXABAN 5 MG TABLET PO SCH ×2 (08:03→21:28)
[2016-12-21] MEDS: METOPROLOL (XL) 25 MG TAB PO SCH (08:03)
--- NOTE | 2016-12-21 08:08 | CONS ---
DATE OF ADMISSION: 12/19/2016 DATE OF CONSULTATION: 12/20/2016 TYPE OF CONSULTATION: Cardiology consultation. REFERRING PHYSICIAN: Dr. Khanna. REASON FOR EVALUATION: Non-ST elevation myocardial infarction, coronary artery disease, hypertensio n. HISTORY OF PRESENT ILLNESS: Mr. Sandoval is a 76-year-old gentleman known to me from prior admissi ons, who has a history of hypertension, dyslipidemia, history of coronary artery disease with a hist ory of atrial fibrillation with rapid ventricular response, who comes to the hospital now for evalua tion of non-ST elevation myocardial infarction. The patient was on hemodialysis yesterday. He said that in the morning he had an episode of nausea and vomiting and then he did not feel well after di alysis and felt cardiac discomfort and was brought to the hospital for further evaluation of his car diac condition. The patient is in sinus rhythm at the moment. The patient's troponin was minimally elevated and I still cannot rule out just a demand ischemia. The patient did have recent risk stra tification with a left heart catheterization. He was in atrial fibrillation on admission and the pa tient is anticoagulated. For now, conservative therapy is expected. I think that there is no plan for acute intervention. We will continue to keep the patient euvolemic and he will have additional dialysis. PAST MEDICAL HISTORY: 1. Hypertension. 2. Dyslipidemia. 3. History of coronary artery disease, status post recent intervention, 4. History of end-stage renal disease on dialysis. 5. Atrial fibrillation. 6. Cardiomyopathy with EF 45%, but in [facility] was decreased to 25% on admission. ALLERGIES: NO KNOWN DRUG ALLERGIES. SOCIAL HISTORY: The patient does not smoke, does not drink, does not use any drugs. FAMILY HISTORY: Negative for sudden cardiac or premature coronary artery disease. MEDICATIONS: Current medications here include: 1. Benazepril 40 mg ____. 2. Hydralazine. 3. Metoprolol succinate ____. 4. Glucose ____, he is on and he received some heparin. REVIEW OF SYSTEMS: CONSTITUTIONAL: No fevers, no chills. No shortness of breath. HEENT: No changes in vision or hearing. CARDIAC: No chest pain reported. RESPIRATORY: No shortness of breath. GASTROINTESTINAL: No nausea, vomiting. GENITOURINARY: No hematuria. Patient ___. NEUROLOGIC: No focal deficits. PSYCHIATRIC: History of anxiety. PHYSICAL EXAMINATION: VITAL SIGNS: Temperature is 97.8, ____heart rate 88, blood pressure 167/____. GENERAL: He is a thin gentleman in no acute distress, alert and oriented x3, aware of his condition . HEAD: Normocephalic, atraumatic. Eyes anicteric. NECK: Supple. JVD 7 to 8 cm. There is no lymphadenopathy, no thyromegaly. HEART: Regular with soft holosystolic murmur at the apex. PMI is nondisplaced. I do not hear an S 3. LUNGS: Coarse at bases. ABDOMEN: Distended, bowel sounds are present. GENITOURINARY: Grossly intact. EXTREMITIES: No clubbing, cyanosis or edema. LABORATORY DATA: Sodium 139, potassium 4.4, BUN 30, creatinine 3.6. Troponin is from 0.403 to 0.38 9. CK-MB is normal ____ borderline. ASSESSMENT AND PLAN: 1. Non-ST elevation myocardial infarction. The patient has elevated troponins. He had a recent l eft heart catheterization, I do not think the patient requires any further anticoagulation with hepa rin. We will continue to follow. 2. Atrial fibrillation, paroxysmal. He has intermittent atrial fibrillation and I think the patien t ought to be anticoagulated and ____ I think for now we will continue to adjust the therapy and see if patient is in normal anticoagulant. 3. Hypertension. Blood pressure well controlled. Continue medical therapy. 4. The patient's heart failure. He has reduced ejection fraction, acute on chronic. Continue to r emove ____. 5. End-stage renal disease on hemodialysis was noted. I would like to thank Dr. Jennings for referring this patient for my evaluation. Dictated By: BALAJI YI MD ML/NTS Conf#: [id number] DID#: [id number] CC: ATILIO KHANNA MD;*EndCC*
[2016-12-21 10:33] LABS: BASOPHILS % 0.4 % (0.0-2.0); EOSINOPHILS # 0.2 10^3/ul (0.0-0.5); EOSINOPHILS % 2.9 % (0.0-7.0); HEMATOCRIT 35.6 % (42.0-52.0); HEMOGLOBIN 11.4 g/dl (14.0-18.0); LYMPHOCYTES # 1.4 10^3/ul (0.8-2.9); LYMPHOCYTES % 17.6 % (15.0-51.0); MEAN CORPUSCULAR HEMOGLOBIN 27.2 pg (29.0-33.0); MEAN PLATELET VOLUME 12.6 fl (7.4-10.4); MONOCYTE # 0.8 10^3/ul (0.3-0.9); MONOCYTES % 10.2 % (0.0-11.0); NEUTROPHIL # 5.3 10^3/ul (1.6-7.5); NEUTROPHILS % 68.6 % (39.0-77.0); PLATELET COUNT 138 10^3/UL (140-415); RED BLOOD COUNT 4.19 10^6/ul (4.70-6.10); RED CELL DISTRIBUTION WIDTH 15.9 % (11.5-14.5); WHITE BLOOD COUNT 7.7 10^3/ul (4.8-10.8)
--- NOTE | 2016-12-21 11:27 | PN ---
DATE: 12/21/2016 SUBJECTIVE: The patient is stable, no acute events overnight. The patient is complaining of some mi ld shortness of breath. The patient scheduled for dialysis today. No other events noted. OBJECTIVE: VITAL SIGNS: Blood pressure 158/78, respiration 18, pulse 73, temperature 97.7. HEENT: Head is normocephalic. NECK: Supple. HEART: Regular rate. LUNGS: Show diminished breath sounds at the base. ABDOMEN: Soft, nontender to palpation without rebound or guarding. EXTREMITIES: Negative for clubbing, cyanosis. No edema. DERMATOLOGIC: No rashes. MUSCULOSKELETAL: No joint effusions. NEUROLOGIC: No change in exam. MEDICATIONS: The patient's medications have been reviewed. LABORATORY DATA: Shows a sodium of 139, potassium 4.6, creatinine 9.7, BUN 94, creatinine 8.80. Wh ite count 10.9, hemoglobin 9.9, hematocrit 35.3, platelet count is 137. ASSESSMENT AND PLAN: 1. End-stage renal disease. Plan for dialysis today for 3 hours, 2K bath, calcium 2.5, will ultraf iltrate as tolerated. 2. Hypertension in part due to increased intravascular volume. Plan for dialysis today. Continue ultrafiltration. 3. Anemia of chronic disease. Continue to monitor hemoglobin and hematocrit levels. Continue Epog en. Mineral bone disorder. Continue to monitor calcium and phosphorus levels. Continue phos binders. 4. Weakness. Continue to monitor. Etiology may be multifactorial. 5. Non-ST elevation myocardial infarction type 2 versus type 1. Continue medical management. Follo w up with Cardiology. 6. Cardiomyopathy. Continue medical management. Follow up with Cardiology recommendations. 7. Atrial fibrillation, rate controlled. Continue current treatment plan. 8. Diabetes. Continue Accu-Cheks, insulin sliding scale. Dictated By: NOEMI LOUIE DO NR/NTS Conf#: [id number] DID#: [id number]
[2016-12-21] MEDS ORDERED: NON-FORMULARY/PATIENT OWN MED (Omeprazole* 20 MG) PO SCH (12:30)
[2016-12-21] MEDS ORDERED: glipiZIDE 10 MG TAB PO SCH (12:30)
[2016-12-21] MEDS ORDERED: ZOLPIDEM 5 MG TAB PO PRN (12:30)
[2016-12-21] MEDS: LINAGLIPTIN 5 MG TABLET PO SCH (12:33)
--- NOTE | 2016-12-21 14:04 | CONS ---
Date/Time of Note Date/Time of Note DATE: 12/21/16 TIME: 13:58 Assessment/Plan Assessment/Plan Chief Complaint/Hosp Course INP: 1.Postive troponin-minimal in the setting of renal failure. No sig uptrend. 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 NO cp. No sob 2.Cardiomyopathy-LVEF 25% 3. ESRD on HD 4.HTN 5.PAF/AFL Recc: -Tele -serial ecg's -Continue plavix/eliquis -Continue benazpril as patient will comply -Continue BB/CCB -HD for volume removal Problems: Consultation Date/Type/Reason Admit Date/Time December 19, 2016 at 20:57 Initial Consult Date 12/20/2016 Type of Consultation: Cardiology Reason for Consultation Positive troponin Referring Provider: XANDER ROCHA Exam/Review of Systems Vital Signs Vitals Vital Signs Date Time Temp Pulse Resp B/P Pulse Ox O2 Delivery O2 Flow Rate FiO2 12/21/16 12:13 69 12/21/16 11:31 97.6 18 160/81 97 12/21/16 06:14 2.0 12/20/16 20:48 Nasal Cannula Intake and Output 12/20/16 12/20/16 12/21/16 15:00 23:00 07:00 Intake Total 800 ml Balance 800 ml Exam Review of Systems: CONSTITUTIONAL: No fevers, chills. PULMONARY: No sob CARDIOVASCULAR: No chest pain/palpitations GASTROINTESTINAL: No nausea/vomiting. GENITOURINARY: No hematuria/dysuria. MUSCULOSKELETAL: No myagias/arthalgias. PSYCHIATRIC: The patient denies depression. NEUROLOGIC: weakness Constitutional: alert, oriented Psych: no complaints Head: normocephalic ENMT: mucosa pink and moist Neck: jvd (9 cm water), supple Respiratory: diminished breath sounds (at bases/B) Cardiovascular: regular rate and rhythm Gastrointestinal: non-tender, soft Extremities: edema (none) Neurological: lethargic, other (No focal deficits) Results Result Diagram: 12/21/16 0615 12/21/16 0615 Results 24 hrs Laboratory Tests Test 12/20/16 17:30 12/20/16 20:30 12/21/16 06:15 12/21/16 08:00 Bedside Glucose 191 193 143 White Blood Count 7.7 Red Blood Count 4.19 L Hemoglobin 11.4 L Hematocrit 35.6 L Mean Corpuscular Volume 85.0 Mean Corpuscular Hemoglobin 27.2 L Mean Corpuscular Hemoglobin Concent 32.0 Red Cell Distribution Width 15.9 H Platelet Count 138 L Mean Platelet Volume 12.6 H Neutrophils % 68.6 Lymphocytes % 17.6 Monocytes % 10.2 Eosinophils % 2.9 Basophils % 0.4 Nucleated Red Blood Cells % 0.0 Neutrophils # 5.3 Lymphocytes # 1.4 Monocytes # 0.8 Eosinophils # 0.2 Basophils # 0.0 Nucleated Red Blood Cells # 0.0 Sodium Level 139 Potassium Level 4.6 Chloride Level 97 Carbon Dioxide Level 28 Anion Gap 19 H Blood Urea Nitrogen 94 H Creatinine 8.80 H Glucose Level 142 # Calcium Level 9.2 Phosphorus Level 6.8 H Magnesium Level 2.0 Troponin I 0.203 *H Test 12/21/16 11:46 Bedside Glucose 253 H Medications Medications Current Medications Ondansetron HCl (Zofran Inj) 4 mg Q6H PRN IV NAUSEA AND/OR VOMITING; Start at 21:30 Acetaminophen (Tylenol Tab) 650 mg Q6H PRN PO PAIN LEVEL 1-3 OR FEVER; Start at 21:30 Benazepril HCl (Lotensin) 40 mg DAILY PO Last administered on 12/19/16 22:10; Admin Dose 40 MG; Start 12/19/16 at 22:00 Clopidogrel Bisulfate (plaVIX) 75 mg DAILY PO Last administered on 12/21/16 08 :02; Admin Dose 75 MG; Start 12/20/16 at 09:00 Hydralazine HCl (Apresoline) 10 mg Q6H PRN IV ELEVATED BLOOD PRESSURE Last administered on 12/19/16 22:11; Admin Dose 10 MG; Start 12/19/16 at 22:00 Diagnostic Test (Pha) (Accu-Chek) 1 ea 02 XX ; Start 12/20/16 at 02:00 Metoprolol Succinate (Toprol Xl) 75 mg DAILY PO Last administered on 12/21/16 08:03; Admin Dose 75 MG; Start 12/19/16 at 22:00 Miscellaneous Information 1 ea NOTE XX ; Start 12/19/16 at 22:00 Glucose (Glutose) 15 gm Q15M PRN PO DECREASED GLUCOSE; Start 12/19/16 at 22:00 Glucose (Glutose) 22.5 gm Q15M PRN PO DECREASED GLUCOSE; Start 12/19/16 at 22: 00 Dextrose (D50w Syringe) 25 ml Q15M PRN IV DECREASED GLUCOSE; Start 12/19/16 at 22:00 Dextrose (D50w Syringe) 50 ml Q15M PRN IV DECREASED GLUCOSE; Start 12/19/16 at 22:00 Glucagon (Glucagen) 1 mg Q15M PRN IM DECREASED GLUCOSE; Start 12/19/16 at 22:00 Glucose (Glutose) 15 gm Q15M PRN BUCCAL DECREASED GLUCOSE; Start 12/19/16 at 22 :00 Furosemide (Lasix) 40 mg BID@06,18 PO ; Start 12/20/16 at 00:00; Status Future Hold Nifedipine (Procardia Xl) 90 mg QAM PO Last administered on 12/21/16 08:02; Admin Dose 90 MG; Start 12/20/16 at 09:00 Apixaban (Eliquis) 2.5 mg BID PO Last administered on 12/21/16 08:03; Admin Dose 2.5 MG; Start 12/20/16 at 21:00 Famotidine (Pepcid) 20 mg Q24H PO Last administered on 12/20/16 20:27; Admin Dose 20 MG; Start 12/20/16 at 21:00 Zolpidem Tartrate (Ambien) 10 mg QHS PRN PO INSOMNIA; Start 12/21/16 at 12:30 Linagliptin (Tradjenta) 5 mg DAILY PO Last administered on 12/21/16 12:33; Admin Dose 5 MG; Start 12/21/16 at 12:30 AIYANA LANG December 21, 2016 14:04
[2016-12-21] MEDS: FAMOTIDINE 20 MG TAB PO SCH (21:26)
[2016-12-22] VITALS (15 sets, daily range): BP systolic 146–188; BP diastolic 73–106; PULSE 72–92; RESP 19–20
[2016-12-22] MEDS: ACCU-CHEK XX SCH (02:00)
[2016-12-22 06:21] LABS: ADD SCAN DIFF NO; BASOPHILS % 0.4 % (0.0-2.0); EOSINOPHILS # 0.3 10^3/ul (0.0-0.5); EOSINOPHILS % 4.3 % (0.0-7.0); HEMATOCRIT 38.6 % (42.0-52.0); HEMOGLOBIN 12.6 g/dl (14.0-18.0); LYMPHOCYTES # 1.5 10^3/ul (0.8-2.9); LYMPHOCYTES % 21.5 % (15.0-51.0); MEAN CORPUSCULAR HEMOGLOBIN 27.4 pg (29.0-33.0); MEAN CORPUSCULAR HGB CONC 32.6 g/dl (32.0-37.0); MEAN CORPUSCULAR VOLUME 83.9 fl (82.0-101.0); MEAN PLATELET VOLUME 11.8 fl (7.4-10.4); MONOCYTE # 0.7 10^3/ul (0.3-0.9); MONOCYTES % 10.3 % (0.0-11.0); NEUTROPHIL # 4.3 10^3/ul (1.6-7.5); NEUTROPHILS % 63.4 % (39.0-77.0); PLATELET COUNT 150 10^3/UL (140-415); RED CELL DISTRIBUTION WIDTH 15.7 % (11.5-14.5); WHITE BLOOD COUNT 6.8 10^3/ul (4.8-10.8)
[2016-12-22 06:37] LABS: CALCIUM 8.9 mg/dl (8.4-10.2); CREATININE 6.47 mg/dl (0.61-1.24); MAGNESIUM 1.9 mg/dl (1.7-2.5); POTASSIUM 4.1 mmol/L (3.5-5.1)
[2016-12-22] MEDS: INSULIN ASPART [NOVOLOG] 3 ML PEN SC SCH ×4 (07:55→20:19)
[2016-12-22] MEDS: NIFEdipine (XL) 90 MG TAB PO SCH (08:43)
[2016-12-22] MEDS: CLOPIDOGREL 75 MG TAB PO SCH (08:43)
[2016-12-22] MEDS: LINAGLIPTIN 5 MG TABLET PO SCH (08:43)
[2016-12-22] MEDS: APIXABAN 5 MG TABLET PO SCH ×2 (08:44→20:19)
[2016-12-22] MEDS: METOPROLOL (XL) 25 MG TAB PO SCH (08:44)
[2016-12-22] MEDS: BENAZEPRIL 40 MG TAB PO SCH (08:44)
--- NOTE | 2016-12-22 10:26 | PN ---
DATE: 12/22/2016 SUBJECTIVE: The patient had hemodialysis yesterday, tolerated well. No other events noted. OBJECTIVE: VITAL SIGNS: Blood pressure 169/98, respirations 20, pulse 73, temperature 98.0. HEENT: Head is normocephalic. NECK: Supple. HEART: Regular rate. LUNGS: Show diminished breath sounds at base. ABDOMEN: Soft, nontender to palpation. No rebound or guarding. EXTREMITIES: Negative for clubbing, cyanosis. No edema. DERMATOLOGIC: No rashes. MUSCULOSKELETAL: No joint effusions. NEUROLOGIC: No change in exam. MEDICATIONS: The patient's medications have been reviewed. LABORATORY DATA: Shows sodium 137, potassium 4.1, chloride 101, BUN 57, creatinine 6.47. White cou nt 6.8, hemoglobin 12.6, hematocrit 38.6, platelet count is 150. ASSESSMENT AND PLAN: 1. End-stage renal disease: The patient is on dialysis Monday, Monday, Monday. Last hemodialys is yesterday. Plan for dialysis tomorrow for 3 hours on 3K bath, 2.5. 2. Hypertension: In part due to increased intravascular volume. Continue ultrafiltration on dialy sis. Continue current blood pressure regimen. 3. Anemia of chronic disease: Monitor hemoglobin and hematocrit levels. Continue Epogen. 4. Mineral bone disease: Continue to monitor calcium and phosphorus levels. 5. Status post non-STEMI: Continue medical management. Follow up with cardiology. 6. Cardiomyopathy: Continue current treatment plan. 7. Atrial fibrillation: Rate controlled. Continue current treatment plan. 8. Diabetes: Continue Accu-Cheks, insulin sliding scale. Dictated By: NOEMI LOUIE DO NR/NTS Conf#: [id number] DID#: [id number]
--- NOTE | 2016-12-22 15:25 | PDOCDIS ---
Discharge Instructions CONDITION Patient Condition: Good HOME CARE INSTRUCTIONS: Special Diet: renal ,ada ACTIVITY: Activity Restrictions: Slowly Increase Activity Rest between Activity Avoid heavy lifting Avoid Heavy Housework FOLLOW UP/APPOINTMENTS Appointments Follow-up with cardiology and nephrology as outpatient SHANTELL JASSO MD Dec 22, 2016 15:25
[2016-12-22] MEDS ORDERED: GLIP-95 PO (15:27)
[2016-12-22] MEDS ORDERED: APIX5TAB PO (15:27)
--- NOTE | 2016-12-22 16:26 | DS ---
DATE OF ADMISSION: 12/22/2016 DATE OF DISCHARGE: 12/22/2016 CONSULTANTS: Dr. Cholo Tolbert, Dr. Delonte Ferguson, and Dr. Archie Umana. PROCEDURES: None, although patient had previous hospitalization on 10/13/2016, had a left heart cat heterization, coronary angiography, which demonstrated moderate obstruction at the distal small left main but with excellent flow and moderate obstruction of the mid LAD with excellent flow. ____ LAD circumflex stent. The elevated left heart filling pressure. No significant aortic stenosis by grad ient. DISCHARGE DIAGNOSES: 1. Generalized weakness status post hemodialysis. 2. End-stage renal disease on hemodialysis. 3. Essential hypertension, well controlled on medical management. 4. Anemia of chronic disease. 5. History of coronary artery disease. 6. Elevated troponin, likely secondary to end-stage renal disease. 7. Cardiomyopathy. 8. Atrial fibrillation. 9. Diabetes mellitus. 10. Diabetic nephropathy. LABORATORY: WBC 6.8, hemoglobin 12.6, hematocrit 38.6, platelets 150. Sodium 137, potassium 4.1, c hloride 101, bicarbonate 25, BUN 57, creatinine 6.47, glucose 126, calcium 8.9, magnesium 1.9. MEDICATIONS: 1. Eliquis 2.5 mg. 2. Benazepril 40 mg. 3. Plavix 75 mg. 4. Lasix 40 mg. 5. Metoprolol 75 mg. 6. Nifedipine 90 mg. 7. Omeprazole 20 mg. 8. Januvia 100 mg. 9. Ambien 10 mg. 10. Glipizide 5 mg. ALLERGIES: NO KNOWN DRUG ALLERGIES. OTHER MEDICAL DIAGNOSIS: Patient noncompliance with medical management. HOSPITAL COURSE: This is a 76-year-old gentleman with past medical history of coronary artery disea se, atrial fibrillation, congestive heart failure, cardiomyopathy with ejection fraction 25% and end -stage renal disease on hemodialysis, essential hypertension, diabetes mellitus, noncompliance with medical management and treatment who is status post dialysis. He has been feeling weak x3 days, wor sened after dialysis on 12/19/2016. Presented to [facility] secondary to having g eneralized weakness and some pleural effusion on chest x-ray. Upon admission, patient was found to have blood pressure 164/109 and his blood pressure increased to 204/98. His troponin was found to b e mildly elevated and patient had had a left heart catheterization on previous admission which showe d coronary artery disease and was recommended to proceed with medical management. He was restarted on all his blood pressure medications such as nifedipine, Benazepril, metoprolol and was also placed on hydralazine IV p.r.n., although during this course of hospitalization, he has been refusing the hydralazine despite his blood pressure has been elevated above 180. He was seen and evaluated by ne phrology. Hemodialysis was obtained. Cardiology has been following him as well. His troponin has been found to be mildly elevated at the time of admission with 0.286. This is likely secondary to e nd-stage renal disease, essential hypertension and his history of cardiomyopathy. He denies having any chest pain or shortness of breath, although he comes complaining of having generalized weakness. His blood pressure has been improving to this morning which was 146/73 and 448/78, except this mor alba when his blood pressure increased to 171/91. He has been refusing IV hydralazine during the co urse of hospitalization when his blood pressure has been about 160s. At this time, patient denies h aving any chest pain, shortness of breath. He has been placed on Plavix and Eliquis for his coronar y artery disease and Tradjenta insulin sliding scale for his diabetes mellitus. For his essential h ypertension, he has been continued on his home medication. At this time, the patient is medically s table to be discharged home after clearance by cardiology to follow with cardiology and primary care physician and nephrology as outpatient. Dictated By: SHANTELL KIMBLE/CHANTALE Conf#: [id number] DID#: [id number]
[2016-12-22] MEDS: hydrALAzine 20 MG INJ IV PRN (17:33)
--- NOTE | 2016-12-22 18:02 | CONS ---
Date/Time of Note Date/Time of Note DATE: 12/22/16 TIME: 17:59 Assessment/Plan Assessment/Plan Chief Complaint/Hosp Course INP: 1.Postive troponin-minimal in the setting of renal failure. No sig uptrend. 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 NO cp. No sob 2.Cardiomyopathy-LVEF 25% 3. ESRD on HD 4.HTN 5.PAF/AFL Recc: -Tele -serial ecg's -Continue plavix/eliquis -Continue benazepril with slight uptitration to improve BP control as patient will comply -Continue BB/procardia with possible need to increase dose to improve BP control -HD for volume removal Problems: Consultation Date/Type/Reason Admit Date/Time Dec 22, 2016 at 14:25 Initial Consult Date 12/20/2016 Type of Consultation: Cardiology Reason for Consultation cardiomyopathy Referring Provider: XANDER ROCHA Exam/Review of Systems Vital Signs Vitals Vital Signs Date Time Temp Pulse Resp B/P Pulse Ox O2 Delivery O2 Flow Rate FiO2 12/22/16 17:22 76 183/106 12/22/16 15:51 97.8 20 100 12/21/16 15:01 2.0 12/20/16 20:48 Nasal Cannula Intake and Output 12/21/16 12/21/16 12/22/16 15:00 23:00 07:00 Intake Total 1100 ml 100 ml Output Total 3000 ml Balance -1900 ml 100 ml Exam Review of Systems: CONSTITUTIONAL: No fevers, chills. PULMONARY: No sob CARDIOVASCULAR: No chest pain/palpitations GASTROINTESTINAL: No nausea/vomiting. GENITOURINARY: No hematuria/dysuria. MUSCULOSKELETAL: No myagias/arthalgias. PSYCHIATRIC: The patient denies depression. NEUROLOGIC: No weakness Constitutional: alert Psych: no complaints Head: normocephalic ENMT: mucosa pink and moist Neck: jvd (9cm water), supple Respiratory: diminished breath sounds (at bases/B) Cardiovascular: regular rate and rhythm Gastrointestinal: non-tender, soft Musculoskeletal: muscle tone (normal) Extremities: edema Neurological: other (No focal deficits) Results Result Diagram: 12/22/16 0600 12/22/16 0602 Results 24 hrs Laboratory Tests Test 12/21/16 21:21 12/22/16 06:00 6/1/17 06:02 12/22/16 07:06 Bedside Glucose 202 142 White Blood Count 6.8 Red Blood Count 4.60 L Hemoglobin 12.6 L Hematocrit 38.6 L Mean Corpuscular Volume 83.9 Mean Corpuscular Hemoglobin 27.4 L Mean Corpuscular Hemoglobin Concent 32.6 Red Cell Distribution Width 15.7 H Platelet Count 150 Mean Platelet Volume 11.8 H Neutrophils % 63.4 Lymphocytes % 21.5 Monocytes % 10.3 Eosinophils % 4.3 Basophils % 0.4 Nucleated Red Blood Cells % 0.0 Neutrophils # 4.3 Lymphocytes # 1.5 Monocytes # 0.7 Eosinophils # 0.3 Basophils # 0.0 Nucleated Red Blood Cells # 0.0 Sodium Level 137 Potassium Level 4.1 Chloride Level 101 Carbon Dioxide Level 25 Anion Gap 15 Blood Urea Nitrogen 57 #H Creatinine 6.47 #H Glucose Level 126 Calcium Level 8.9 Magnesium Level 1.9 Test 12/22/16 12:05 12/22/16 17:13 Bedside Glucose 338 H 152 Medications Medications Current Medications Ondansetron HCl (Zofran Inj) 4 mg Q6H PRN IV NAUSEA AND/OR VOMITING; Start at 21:30 Acetaminophen (Tylenol Tab) 650 mg Q6H PRN PO PAIN LEVEL 1-3 OR FEVER; Start at 21:30 Benazepril HCl (Lotensin) 40 mg DAILY PO Last administered on 12/22/16 08:44; Admin Dose 40 MG; Start 12/19/16 at 22:00 Clopidogrel Bisulfate (plaVIX) 75 mg DAILY PO Last administered on 12/22/16 08: 43; Admin Dose 75 MG; Start 12/20/16 at 09:00 Hydralazine HCl (Apresoline) 10 mg Q6H PRN IV ELEVATED BLOOD PRESSURE Last administered on 12/22/16 17:33; Admin Dose 10 MG; Start 12/19/16 at 22:00 Diagnostic Test (Pha) (Accu-Chek) 1 ea 02 XX ; Start 12/20/16 at 02:00 Metoprolol Succinate (Toprol Xl) 75 mg DAILY PO Last administered on 12/22/16 08:44; Admin Dose 75 MG; Start 12/19/16 at 22:00 Miscellaneous Information 1 ea NOTE XX ; Start 12/19/16 at 22:00 Glucose (Glutose) 15 gm Q15M PRN PO DECREASED GLUCOSE; Start 12/19/16 at 22:00 Glucose (Glutose) 22.5 gm Q15M PRN PO DECREASED GLUCOSE; Start 12/19/16 at 22: 00 Dextrose (D50w Syringe) 25 ml Q15M PRN IV DECREASED GLUCOSE; Start 12/19/16 at 22:00 Dextrose (D50w Syringe) 50 ml Q15M PRN IV DECREASED GLUCOSE; Start 12/19/16 at 22:00 Glucagon (Glucagen) 1 mg Q15M PRN IM DECREASED GLUCOSE; Start 12/19/16 at 22:00 Glucose (Glutose) 15 gm Q15M PRN BUCCAL DECREASED GLUCOSE; Start 12/19/16 at 22 :00 Furosemide (Lasix) 40 mg BID@06,18 PO ; Start 12/20/16 at 00:00; Status Future Hold Nifedipine (Procardia Xl) 90 mg QAM PO Last administered on 12/22/16 08:43; Admin Dose 90 MG; Start 12/20/16 at 09:00 Apixaban (Eliquis) 2.5 mg BID PO Last administered on 12/22/16 08:44; Admin Dose 2.5 MG; Start 12/20/16 at 21:00 Famotidine (Pepcid) 20 mg Q24H PO Last administered on 12/21/16 21:26; Admin Dose 20 MG; Start 12/20/16 at 21:00 Zolpidem Tartrate (Ambien) 10 mg QHS PRN PO INSOMNIA; Start 12/21/16 at 12:30 Linagliptin (Tradjenta) 5 mg DAILY PO Last administered on 12/22/16 08:43; Admin Dose 5 MG; Start 12/21/16 at 12:30 Clonidine (Catapres) 0.1 mg Q4H PRN PO ELEVATED BLOOD PRESSURE Last administered on 12/22/16 15:55; Admin Dose 0.1 MG; Start 12/22/16 at 16:00 AIYANA LANG Dec 22, 2016 18:02
[2016-12-22] MEDS: FAMOTIDINE 20 MG TAB PO SCH (20:19)
[2016-12-22] MEDS: DOCUSATE SODIUM 100 MG CAP PO SCH (20:19)
[2016-12-22] MEDS: BISACODYL (EC) 5 MG TAB PO SCH (20:19)
[2016-12-22] MEDS ORDERED: BENAZEPRIL 20 MG TAB PO SCH (21:00)
[2016-12-23] VITALS (17 sets, daily range): BP systolic 89–179; BP diastolic 50–95; PULSE 63–86; RESP 18–20
[2016-12-23] MEDS: ACCU-CHEK XX SCH (02:00)
[2016-12-23 06:54] LABS: ADD SCAN DIFF NO
[2016-12-23 07:00] LABS: BASOPHIL # 0.1 10^3/ul (0.0-0.1); BASOPHILS % 0.9 % (0.0-2.0); EOSINOPHILS # 0.3 10^3/ul (0.0-0.5); EOSINOPHILS % 4.4 % (0.0-7.0); HEMATOCRIT 37.2 % (42.0-52.0); HEMOGLOBIN 12.2 g/dl (14.0-18.0); LYMPHOCYTES % 30.4 % (15.0-51.0); MEAN CORPUSCULAR HEMOGLOBIN 27.7 pg (29.0-33.0); MEAN CORPUSCULAR HGB CONC 32.8 g/dl (32.0-37.0); MEAN CORPUSCULAR VOLUME 84.4 fl (82.0-101.0); MEAN PLATELET VOLUME 12.4 fl (7.4-10.4); MONOCYTE # 0.7 10^3/ul (0.3-0.9); MONOCYTES % 11.1 % (0.0-11.0); NEUTROPHIL # 3.5 10^3/ul (1.6-7.5); NEUTROPHILS % 52.7 % (39.0-77.0); PLATELET COUNT 161 10^3/UL (140-415); RED BLOOD COUNT 4.41 10^6/ul (4.70-6.10); RED CELL DISTRIBUTION WIDTH 15.6 % (11.5-14.5); WHITE BLOOD COUNT 6.7 10^3/ul (4.8-10.8)
[2016-12-23 07:26] LABS: CALCIUM 9.3 mg/dl (8.4-10.2); CREATININE 8.1 mg/dl (0.61-1.24); POTASSIUM 4.7 mmol/L (3.5-5.1)
[2016-12-23] MEDS: INSULIN ASPART [NOVOLOG] 3 ML PEN SC SCH ×2 (07:55→11:50)
[2016-12-23] MEDS: BISACODYL (EC) 5 MG TAB PO SCH (09:00)
[2016-12-23] MEDS: LINAGLIPTIN 5 MG TABLET PO SCH (09:00)
[2016-12-23] MEDS: NIFEdipine (XL) 90 MG TAB PO SCH (09:00)
[2016-12-23] MEDS: DOCUSATE SODIUM 100 MG CAP PO SCH (09:00)
[2016-12-23] MEDS: METOPROLOL (XL) 25 MG TAB PO SCH (09:00)
[2016-12-23] MEDS: CLOPIDOGREL 75 MG TAB PO SCH (09:00)
[2016-12-23] MEDS: APIXABAN 5 MG TABLET PO SCH (09:00)
[2016-12-23] MEDS ORDERED: BENAZEPRIL 40 MG TAB PO SCH (09:00)
--- NOTE | 2016-12-23 09:31 | PN ---
DATE: 12/23/2016 SUBJECTIVE: The patient is stable. No acute events overnight. OBJECTIVE: VITAL SIGNS: Blood pressure is 153/86, respirations 20, pulse 64, temperature 97.3. HEENT: Head is normocephalic. NECK: Supple. HEART: Regular rate. LUNGS: Show diminished breath sounds at the base. ABDOMEN: Soft, nontender to palpation. No rebound or guarding. EXTREMITIES: Negative for clubbing or cyanosis. No edema. DERMATOLOGIC: No rashes. MUSCULOSKELETAL: Have no joint effusion. NEUROLOGIC: No change in exam. MEDICATIONS: The patient's medications have been reviewed. LABORATORY DATA: Shows white count 6.7, hemoglobin 10.2, hematocrit 37.2, platelet count is 161. S odium 138, potassium 4.7, BUN 81, creatinine 8.10. ASSESSMENT AND PLAN: 1. End-stage renal disease. The patient is on dialysis Monday, Monday, and Monday. Plan for di alysis today for 3 hours, 2K bath, calcium 2.5. 2. Hypertension. Continue the current blood pressure regimen. Continue ultrafiltration dialysis. 3. Anemia of chronic disease. Continue to monitor hemoglobin and hematocrit levels. Continue Epog en. 4. Mineral bone disorder. Continue to monitor calcium and phos levels. Continue phos binders. 5. Vrg-DZ-[id number] myocardial infarction. Continue medical management. 6. Cardiomyopathy. Continue the current treatment plan. 7. Atrial fibrillation. Rate controlled. Continue medical management. 8. Diabetes. Continue Accu-Cheks and insulin sliding scale. Dictated By: NOEMI BOTELLO/CHANTALE Conf#: [id number] DID#: [id number]
--- NOTE | 2016-12-23 11:20 | CONS ---
Date/Time of Note Date/Time of Note DATE: 12/23/16 TIME: 11:16 Assessment/Plan Assessment/Plan Chief Complaint/Hosp Course INP: 1.Postive troponin-minimal in the setting of renal failure. No sig uptrend. 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 NO cp. No sob 2.Cardiomyopathy-LVEF 25% 3. ESRD on HD 4.HTN 5.PAF/AFL Recc: -Tele -serial ecg's -Continue plavix/eliquis -Continue benazepril -Continue BB/procardia with possible need to increase dose to improve BP control -HD for volume removal -D/C planning Problems: Consultation Date/Type/Reason Admit Date/Time Dec 22, 2016 at 14:25 Initial Consult Date 12/20/2016 Type of Consultation: Cardiology Reason for Consultation CHF Referring Provider: XANDER ROCHA Exam/Review of Systems Vital Signs Vitals Vital Signs Date Time Temp Pulse Resp B/P Pulse Ox O2 Delivery O2 Flow Rate FiO2 12/23/16 11:05 98.2 79 20 126/80 95 12/21/16 15:01 2.0 12/20/16 20:48 Nasal Cannula Intake and Output 12/22/16 12/22/16 12/23/16 15:00 23:00 07:00 Intake Total 200 ml 100 ml Balance 200 ml 100 ml Exam Review of Systems: CONSTITUTIONAL: No fevers, chills. PULMONARY: No sob CARDIOVASCULAR: No chest pain/palpitations GASTROINTESTINAL: No nausea/vomiting. GENITOURINARY: No hematuria/dysuria. MUSCULOSKELETAL: No myagias/arthalgias. PSYCHIATRIC: The patient denies depression. NEUROLOGIC: No weakness Constitutional: alert, oriented Head: normocephalic ENMT: mucosa pink and moist Neck: jvd (9 cm water), supple Respiratory: diminished breath sounds (at bases/B) Cardiovascular: regular rate and rhythm Gastrointestinal: non-tender, soft Musculoskeletal: muscle tone (normal) Extremities: edema (none) Neurological: other (No focal deficits) Results Result Diagram: 12/23/16 0605 12/23/16 0605 Results 24 hrs Laboratory Tests Test 12/22/16 12:05 12/22/16 17:13 12/22/16 20:17 12/23/16 06:05 Bedside Glucose 338 H 152 116 White Blood Count 6.7 Red Blood Count 4.41 L Hemoglobin 12.2 L Hematocrit 37.2 L Mean Corpuscular Volume 84.4 Mean Corpuscular Hemoglobin 27.7 L Mean Corpuscular Hemoglobin Concent 32.8 Red Cell Distribution Width 15.6 H Platelet Count 161 Mean Platelet Volume 12.4 H Neutrophils % 52.7 Lymphocytes % 30.4 Monocytes % 11.1 H Eosinophils % 4.4 Basophils % 0.9 Nucleated Red Blood Cells % 0.0 Neutrophils # 3.5 Lymphocytes # 2.0 Monocytes # 0.7 Eosinophils # 0.3 Basophils # 0.1 Nucleated Red Blood Cells # 0.0 Sodium Level 138 Potassium Level 4.7 Chloride Level 95 L Carbon Dioxide Level 23 Anion Gap 25 #H Blood Urea Nitrogen 81 H Creatinine 8.10 H Glucose Level 139 Calcium Level 9.3 Test 12/23/16 08:20 Bedside Glucose 151 Medications Medications Current Medications Ondansetron HCl (Zofran Inj) 4 mg Q6H PRN IV NAUSEA AND/OR VOMITING; Start at 21:30 Acetaminophen (Tylenol Tab) 650 mg Q6H PRN PO PAIN LEVEL 1-3 OR FEVER; Start at 21:30 Clopidogrel Bisulfate (plaVIX) 75 mg DAILY PO Last administered on 12/22/16 08: 43; Admin Dose 75 MG; Start 12/20/16 at 09:00 Hydralazine HCl (Apresoline) 10 mg Q6H PRN IV ELEVATED BLOOD PRESSURE Last administered on 12/22/16 17:33; Admin Dose 10 MG; Start 12/19/16 at 22:00 Diagnostic Test (Pha) (Accu-Chek) 1 ea 02 XX ; Start 12/20/16 at 02:00 Metoprolol Succinate (Toprol Xl) 75 mg DAILY PO Last administered on 12/22/16 08:44; Admin Dose 75 MG; Start 12/19/16 at 22:00 Miscellaneous Information 1 ea NOTE XX ; Start 12/19/16 at 22:00 Glucose (Glutose) 15 gm Q15M PRN PO DECREASED GLUCOSE; Start 12/19/16 at 22:00 Glucose (Glutose) 22.5 gm Q15M PRN PO DECREASED GLUCOSE; Start 12/19/16 at 22: 00 Dextrose (D50w Syringe) 25 ml Q15M PRN IV DECREASED GLUCOSE; Start 12/19/16 at 22:00 Dextrose (D50w Syringe) 50 ml Q15M PRN IV DECREASED GLUCOSE; Start 12/19/16 at 22:00 Glucagon (Glucagen) 1 mg Q15M PRN IM DECREASED GLUCOSE; Start 12/19/16 at 22:00 Glucose (Glutose) 15 gm Q15M PRN BUCCAL DECREASED GLUCOSE; Start 12/19/16 at 22 :00 Furosemide (Lasix) 40 mg BID@06,18 PO ; Start 12/20/16 at 00:00; Status Future Hold Nifedipine (Procardia Xl) 90 mg QAM PO Last administered on 12/22/16 08:43; Admin Dose 90 MG; Start 12/20/16 at 09:00 Apixaban (Eliquis) 2.5 mg BID PO Last administered on 12/22/16 20:19; Admin Dose 2.5 MG; Start 12/20/16 at 21:00 Famotidine (Pepcid) 20 mg Q24H PO Last administered on 12/22/16 20:19; Admin Dose 20 MG; Start 12/20/16 at 21:00 Zolpidem Tartrate (Ambien) 10 mg QHS PRN PO INSOMNIA; Start 12/21/16 at 12:30 Linagliptin (Tradjenta) 5 mg DAILY PO Last administered on 12/22/16 08:43; Admin Dose 5 MG; Start 12/21/16 at 12:30 Clonidine (Catapres) 0.1 mg Q4H PRN PO ELEVATED BLOOD PRESSURE Last administered on 12/23/16 05:24; Admin Dose 0.1 MG; Start 12/22/16 at 16:00 Benazepril HCl (Lotensin) 40 mg QAM PO ; Start 12/23/16 at 09:00 Benazepril HCl (Lotensin) 20 mg HS PO Last administered on 12/22/16 20:19; Admin Dose 20 MG; Start 12/22/16 at 21:00 Docusate Sodium (Colace) 100 mg BID PO Last administered on 12/22/16 20:19; Admin Dose 100 MG; Start 12/22/16 at 21:00 Bisacodyl (Dulcolax) 5 mg DAILY PO Last administered on 6/1/17at 20:19; Admin Dose 5 MG; Start 12/22/16 at 21:00 AIYANA LANG Dec 23, 2016 11:19
--- NOTE | 2016-12-23 12:13 | DS ---
DATE OF ADMISSION: 12/22/2016 DATE OF DISCHARGE: 12/23/2016 ADDENDUM CONSULTANTS: 1. Dr. Archie Umana. 2. Dr. Cholo Tolbert. PROCEDURE: Hemodialysis. DISCHARGE DIAGNOSES: 1. Generalized weakness, status post hemodialysis. 2. End-stage renal disease, on hemodialysis. 3. Essential hypertension. Better controlled on medical management. 4. Anemia of chronic disease. 5. History of coronary artery disease. 6. Elevated troponin secondary to end-stage renal disease. 7. Cardiomyopathy 8. Atrial fibrillation. 9. Diabetes mellitus. 10. Diabetic nephropathy. MEDICATIONS: 1. Eliquis 2.5 mg. 2. Benazepril 40 mg 3. Plavix 75 mg. 4. Lasix 40 mg. 5. Toprol-XL 75 mg. 6. Nifedipine ER 90 mg. 7. Omeprazole 20 mg. 8. Januvia 100 mg. 9. Ambien 10 mg 10. Glipizide 5 mg. ALLERGIES: NO KNOWN DRUG ALLERGIES. HOSPITAL COURSE: Please see my discharge summary which was done on 12/22/2016. This is a 76-year-old gentleman with a past medical history of coronary artery disease, atrial fibri llation, congestive heart failure, cardiomyopathy, with an ejection fraction of 25%, end-stage renal disease, on hemodialysis, essential hypertension, diabetes mellitus, diabetic neuropathy, noncompli ance with medical management and treatment, who presented to [facility] [place] secondary to having generalized weakness x4 days, with worsening of his symptoms, status post dialysis. Prior to admission the patient also was found to have an elevated blood pressure of 204/98 and was treate d with a nifedipine patch, metoprolol and also placed on hydralazine p.r.n. During the course of ho spitalization on several events the patient has been refusing blood pressure medication. His tropon in was found to be mildly elevated at 0.286. He has had left heart catheterization on 10/13/2016 an d he has been recommended to continue medical management. During the course of hospitalization his blood pressure has been moderately controlled except for the time that he has been noncompliant with his medication. On 12/22/2016 the patient was set to be discharged home, although he refused some o f his blood pressure medication. As stated above, his blood pressure was found to be 171/91. The d ischarge was placed on hold. This morning the patient has been compliant with all his medications. His blood pressure is 150/86. During dialysis his blood pressure was 123/64. At this time the pat ient is medically stable to be discharged home, with close followup with his primary care physician, cardiology, and nephrology as an outpatient. Dictated By: SHANTELL KIMBLE/CHANTALE Conf#: [id number] DID#: [id number]
--- NOTE | 2016-12-29 12:05 | EN ---
Date/Time of Note Date/Time of Note DATE: 12/29/16 TIME: 12:02 Event Note Medicine Medicine Event Note LATE PROGRESS NOTE DATE OF SERVICE: 12/21/16 SUBJECTIVE: no chest pain OBJECTIVE: Vital Signs Date Time Temp Pulse Resp B/P Pulse Ox O2 Delivery O2 Flow Rate FiO2 12/21/16 12:13 69 12/21/16 11:31 97.6 18 160/81 97 12/21/16 06:14 2.0 12/20/16 20:48 Nasal Cannula Intake and Output 12/20/16 12/20/16 12/21/16 15:00 23:00 07:00 Intake Total 800 ml Balance 800 ml Exam General: Patient is well-developed well-nourished and was sleeping comfortably in bed prior to my history and physical examination. HEENT: Atraumatic, normocephalic. The pupils are equal, round and reactive. Extraocular motor are intact Neck: Supple with full range of motion. No rigidity or meningismus Chest: Nontender Lungs: Clear to auscultation bilaterally no crackles rales or wheezing Heart: Normal S1-S2, Regular rhythm and rate. Abdomen: Soft , nontender, nondistended , bowel sounds are present. No guarding no rebound tenderness , No masses or organomegaly. No costovertebral temporal angle mass Extremities: Normal to inspection, no edema no cyanosis Neurologic: Normal mental status, speech normal, patient is able to move bilateral upper and lower extremities without any problem. Results Result Diagram: 12/21/16 0615 12/21/16 0615 Results 24 hrs Laboratory Tests Test 12/20/16 17:30 12/20/16 20:30 12/21/16 06:15 12/21/16 08:00 Bedside Glucose 191 193 143 White Blood Count 7.7 Red Blood Count 4.19 L Hemoglobin 11.4 L Hematocrit 35.6 L Mean Corpuscular Volume 85.0 Mean Corpuscular Hemoglobin 27.2 L Mean Corpuscular Hemoglobin Concent 32.0 Red Cell Distribution Width 15.9 H Platelet Count 138 L Mean Platelet Volume 12.6 H Neutrophils % 68.6 Lymphocytes % 17.6 Monocytes % 10.2 Eosinophils % 2.9 Basophils % 0.4 Nucleated Red Blood Cells % 0.0 Neutrophils # 5.3 Lymphocytes # 1.4 Monocytes # 0.8 Eosinophils # 0.2 Basophils # 0.0 Nucleated Red Blood Cells # 0.0 Sodium Level 139 Potassium Level 4.6 Chloride Level 97 Carbon Dioxide Level 28 Anion Gap 19 H Blood Urea Nitrogen 94 H Creatinine 8.80 H Glucose Level 142 # Calcium Level 9.2 Phosphorus Level 6.8 H Magnesium Level 2.0 Troponin I 0.203 *H Test 12/21/16 11:46 Bedside Glucose 253 H Medications Medications Current Medications Ondansetron HCl (Zofran Inj) 4 mg Q6H PRN IV NAUSEA AND/OR VOMITING; Start at 21:30 Acetaminophen (Tylenol Tab) 650 mg Q6H PRN PO PAIN LEVEL 1-3 OR FEVER; Start at 21:30 Benazepril HCl (Lotensin) 40 mg DAILY PO Last administered on 12/19/16 22:10; Admin Dose 40 MG; Start 12/19/16 at 22:00 Clopidogrel Bisulfate (plaVIX) 75 mg DAILY PO Last administered on 12/21/16 08 :02; Admin Dose 75 MG; Start 12/20/16 at 09:00 Hydralazine HCl (Apresoline) 10 mg Q6H PRN IV ELEVATED BLOOD PRESSURE Last administered on 12/19/16 22:11; Admin Dose 10 MG; Start 12/19/16 at 22:00 Diagnostic Test (Pha) (Accu-Chek) 1 ea 02 XX ; Start 12/20/16 at 02:00 Metoprolol Succinate (Toprol Xl) 75 mg DAILY PO Last administered on 12/21/16 08:03; Admin Dose 75 MG; Start 12/19/16 at 22:00 Miscellaneous Information 1 ea NOTE XX ; Start 12/19/16 at 22:00 Glucose (Glutose) 15 gm Q15M PRN PO DECREASED GLUCOSE; Start 12/19/16 at 22:00 Glucose (Glutose) 22.5 gm Q15M PRN PO DECREASED GLUCOSE; Start 12/19/16 at 22: 00 Dextrose (D50w Syringe) 25 ml Q15M PRN IV DECREASED GLUCOSE; Start 12/19/16 at 22:00 Dextrose (D50w Syringe) 50 ml Q15M PRN IV DECREASED GLUCOSE; Start 12/19/16 at 22:00 Glucagon (Glucagen) 1 mg Q15M PRN IM DECREASED GLUCOSE; Start 12/19/16 at 22:00 Glucose (Glutose) 15 gm Q15M PRN BUCCAL DECREASED GLUCOSE; Start 12/19/16 at 22 :00 Furosemide (Lasix) 40 mg BID@06,18 PO ; Start 12/20/16 at 00:00; Status Future Hold Nifedipine (Procardia Xl) 90 mg QAM PO Last administered on 12/21/16 08:02; Admin Dose 90 MG; Start 12/20/16 at 09:00 Apixaban (Eliquis) 2.5 mg BID PO Last administered on 12/21/16 08:03; Admin Dose 2.5 MG; Start 12/20/16 at 21:00 Famotidine (Pepcid) 20 mg Q24H PO Last administered on 12/20/16 20:27; Admin Dose 20 MG; Start 12/20/16 at 21:00 Zolpidem Tartrate (Ambien) 10 mg QHS PRN PO INSOMNIA; Start 12/21/16 at 12:30 Linagliptin (Tradjenta) 5 mg DAILY PO Last administered on 12/21/16 12:33; Admin Dose 5 MG; Start 12/21/16 at 12:30 ASSESSMENT: This is a 76-year-old male being admitted to telemetry floor for: #1 weakness: Improved / PT eval noted #2 elevated troponin: Troponin leak vs NSTEMI / recent LHC / f/u cardio final recs / ?d/c #3 Paroxysmal atrial fibrillation: rate controlled / anticoagulation to be started #4 systolic heart failure: Patient's most recent echocardiogram showed an EF of 25%. Continue current home medications aspirin Plavix beta-julia and Lasix. #5 end-stage renal disease: HD per nephro, Renal diet. Avoid nephrotoxic agents. #5 Hypertension: stable #6 Diabetes type 2 : titrate meds for optimal control #7 DVT and GI prophylaxis: SCDs, acid julia XANDER ROCHA Dec 29, 2016 12:04
== END 2016-12-23 17:31 | disposition home or self-care (01) | DRG 280 ==
LOC: E/R 16:56 → TEL 20:57 → OBSVTOIN 12-22 14:25
PROVIDERS: ADMIT Family Medicine; ATTEND Family Medicine
PROC: 5A1D60Z (ICD-10-PCS; principal; 2016-12-21)
DX: I21.4 Non-ST elevation (NSTEMI) myocardial infarction (principal); N18.6 End stage renal disease; I13.2 Hypertensive heart and chronic kidney disease with heart failure and with stage 5 chronic kidney disease, or end stage renal disease; I42.9 Cardiomyopathy, unspecified; E11.22 Type 2 diabetes mellitus with diabetic chronic kidney disease; E86.0 Dehydration; I48.91 Unspecified atrial fibrillation; D63.8 Anemia in other chronic diseases classified elsewhere; I16.0 Hypertensive urgency; E78.5 Hyperlipidemia, unspecified; I50.20 Unspecified systolic (congestive) heart failure; Z79.02 Long term (current) use of antithrombotics/antiplatelets; R40.2412 Glasgow coma scale score 13-15, at arrival to emergency department; I25.10 Atherosclerotic heart disease of native coronary artery without angina pectoris; Z95.5 Presence of coronary angioplasty implant and graft; Z91.19 Patient's noncompliance with other medical treatment and regimen; Z99.2 Dependence on renal dialysis
CPT/HCPCS: 36415; 70450; 71010; 80048; 80053; 81001; 82550; 82553; 82962; 83036; 83605; 83735; 84100; 84443; 84484; 85025; 85610; 85730; 90935; 93005; 96374; 97110; 97116; 97162; G0378; J0360; J1644; J1815; P9612

== ENCOUNTER 2017-01-11 18:31 | Inpatient (IN) | payer OTHER ==
[~2017-01-11] VITALS: Ht 172.7 cm; Wt 64.4 kg
[~2017-01-11 18:31] MED LIST changes: -ALBU18HF INHALATION; +APIX5TAB PO; -ASPI-716 PO; -ATOR40TA68 PO; -CYAN100T PO; -FERR134T PO; -FOL8 PO; +FURO40TA4 PO; +GLIP-95 PO; -KEN1O TOP; -LANT3I SC; -LINA5TAB PO; -LORA-441 PO; -MAGN400C PO; -MELA1TAB25 PO; -NIFE60TA7 PO; +NIFE90TA11 PO; +SITA100T8 PO; -UBID1CAP25 PO; -ZINC220C5 PO
[2017-01-11] MEDS ORDERED: ASPIRIN 325 MG TAB PO STA (18:39)
--- NOTE | 2017-01-11 18:54 | ERD ---
ER Documentation Chief Complaint Date/Time DATE: 01/11/17 TIME: 18:47 Chief Complaint chest pain x 1 hour, was given nitro spray x 2 in field. denies cp now HPI 76-year-old male presents for substernal chest pain described as a pressure that began 1 hour ago. He was given 2 nitro sprays by paramedics in the field which greatly diminished his chest pain. Currently states that his shortness of breath is improved 2. He had no nausea or vomiting. He received dialysis earlier today and states her only able to take off 1 L because that is all that he had in him. States that usually after dialysis he becomes hypotensive but today he became hypertensive. ROS All systems reviewed and are negative except as per history of present illness. Medications Home Meds Active Scripts Glipizide* (Glipizide*) 10 Mg Tablet, 5 MG PO DAILY, #30 TAB Prov:SHANTELL JASSO MD 12/22/16 Clopidogrel Bisulfate (Clopidogrel) 75 Mg Tablet, 75 MG PO DAILY for 30 Days, TAB Prov:SHAR GARLAND MD 10/26/16 Reported Medications Triamcinolone Acetonide* (Kenalog*) 0.1%-15GM Cr, 1 APPLIC TOP BID, #1 TUB 01/11/17 Atorvastatin* (Atorvastatin*) 40 Mg Tablet, 40 MG PO QHS, #30 TAB 01/11/17 Hydralazine Hcl* (Hydralazine Hcl*) 10 Mg Tablet, 10 MG PO TID, #90 TAB 01/11/17 Nifedipine* (Nifedipine ER*) 60 Mg Tablet.sa, 60 MG PO QHS, TAB.SA 01/11/17 Nifedipine* (Nifedipine ER*) 30 Mg Tablet.sa, 30 MG PO QAM, TAB.SA 01/11/17 Apixaban* (Eliquis*) 5 Mg Tablet, 5 MG PO BID, TAB 01/11/17 Benazepril Hcl* (Benazepril Hcl*) 40 Mg Tablet, 40 MG PO DAILY, #30 TAB 12/19/16 Metoprolol Succinate* (Toprol XL*) 50 Mg Tab.er.24h, 75 MG PO DAILY, #30 TAB 12/19/16 Furosemide* (Furosemide*) 40 Mg Tablet, 40 MG PO BID, TAB 12/19/16 Omeprazole* (Omeprazole*) 20 Mg Capsule.dr, 20 MG PO DAILY, #30 CAP 10/06/16 Discontinued Reported Medications Sitagliptin* (Januvia*) 100 Mg Tablet, 100 MG PO DAILY, #30 TAB 12/19/16 Nifedipine* (Nifedipine ER*) 90 Mg Tablet.er, 90 MG PO QAM, TAB 12/19/16 Zolpidem Tartrate* (Zolpidem Tartrate*) 10 Mg Tablet, 10 MG PO QHS Y for INSOMNIA, #30 TAB 10/06/16 Discontinued Scripts Apixaban* (Eliquis*) 5 Mg Tablet, 2.5 MG PO BID, #60 TAB Prov:SHANTELL JASSO MD 12/22/16 Allergies Allergies: Coded Allergies: No Known Allergy (Unverified , 01/11/17) PMhx/Soc History of Surgery: Yes (PERMACATH PLACEMENT) Anesthesia Reaction: No Hx Neurological Disorder: No Hx Respiratory Disorders: No Hx Cardiac Disorders: Yes (CAD, HTN, AFIB) Hx Psychiatric Problems: No Hx Miscellaneous Medical Probl: Yes (ESRD on dialysis, cardiomyopathy,htn) Hx Alcohol Use: No Hx Substance Use: No Hx Tobacco Use: No Physical Exam Vitals Vital Signs Date Time Temp Pulse Resp B/P Pulse Ox O2 Delivery O2 Flow Rate FiO2 01/11/17 21:13 98.5 80 16 188/97 100 Room Air 01/11/17 18:54 98.6 79 18 170/89 100 Room Air 01/11/17 18:32 98.6 86 20 178/85 96 Physical Exam Const: [] No distress Head: Atraumatic Eyes: Normal Conjunctiva ENT: Normal External Ears, Nose and Mouth. Neck: Full range of motion..~ No meningismus. Resp: Clear to auscultation bilaterally Cardio: Regular rate and rhythm, no murmurs Abd: Soft, non tender, non distended. Normal bowel sounds Skin: No petechiae or rashes Ext: No cyanosis, or edema Neur: Awake and alert and oriented 3, no focal deficits Psych: Normal Mood and Affect Result Diagram: 01/11/17184401/11/175 Results 24 hrs Laboratory Tests Test 01/11/17 18:45 White Blood Count 5.810^3/ul Red Blood Count 3.6610^6/ul Hemoglobin 10.4g/dl Hematocrit 31.5% Mean Corpuscular Volume 86.1fl Mean Corpuscular Hemoglobin 28.4pg Mean Corpuscular Hemoglobin Concent 33.0g/dl Red Cell Distribution Width 15.5% Platelet Count 66775^3/UL Mean Platelet Volume 10.5fl Neutrophils % 65.7% Lymphocytes % 20.3% Monocytes % 10.2% Eosinophils % 2.8% Basophils % 0.5% Nucleated Red Blood Cells % 0.0/100WBC Neutrophils # 3.810^3/ul Lymphocytes # 1.210^3/ul Monocytes # 0.610^3/ul Eosinophils # 0.210^3/ul Basophils # 0.010^3/ul Nucleated Red Blood Cells # 0.010^3/ul Prothrombin Time 14.9Sec Prothrombin Time Ratio 1.2 INR International Normalized Ratio 1.16 Activated Partial Thromboplast Time 28.6Sec Sodium Level 139mmol/L Potassium Level 3.8mmol/L Chloride Level 94mmol/L Carbon Dioxide Level 31mmol/L Anion Gap 18 Blood Urea Nitrogen 28mg/dl Creatinine 4.30mg/dl Glucose Level 242mg/dl Calcium Level 9.2mg/dl Troponin I 0.062ng/ml B-Type Natriuretic Peptide 56618VI/ML Current Medications Medications (Trade) Dose Ordered Sig/Tariq Route PRN Reason Start Time Stop Time Status Last Admin Dose Admin Aspirin (Aspirin) 325 mg ONCE STAT PO 01/11/17 18:39 01/11/17 18:43 DC Ondansetron HCl (Zofran Inj) 4 mg ER BRIDGE PRN IV NAUSEA AND/OR VOMITING 01/11/17 22:00 01/12/17 21:59 Acetaminophen (Tylenol Tab) 650 mg ER BRIDGE PRN PO MILD PAIN/FEVER 01/11/17 22:00 01/12/17 21:59 Procedures/MDM Elderly male with multiple risk factors for acute coronary syndrome with concerning chest pain. Initial troponin is not positive the chest pain was 1 hour prior to arrival and would not be expected to have elevated the blood yet. Patient also has significant signs of fluid overload with checks x-ray findings as well as BNP. ST depressions concerning for ischemia on EKG however they are unchanged from prior EKG. Patient refused aspirin because on Plavix and Eliquis. I have low suspicion for pulmonary embolism. Believe the patient warrants admission for further cardiac evaluation as he has not had one and has had significant symptoms with severe pain today. Patient likely has pleural effusions although initial radiology read that it could be an infiltrate. Highly unlikely that the patient has pneumonia as he has had no symptoms concerning for pneumonia and has no white count. I have ordered a chest CT to further evaluate peer I spoke with Dr. Escobar who will be admitting to telemetry. EKG interpretation: Normal sinus rhythm rate of 85, first-degree AV block, normal axis, T-wave inversions in leads V4 through V6 that would be concerning for ischemia however I looked at the patient's previous EKG and is inversions of actually improved somewhat from the deeper inversions on the previous EKG. Abnormal EKG. civil project engineer interpretation: Normal sinus rhythm without arrhythmia JULIO C LANDERS DO Jan 11, 2017 18:54
[2017-01-11 18:56] LABS: ADD SCAN DIFF NO
[2017-01-11 18:57] LABS: BASOPHILS % 0.5 % (0.0-2.0); EOSINOPHILS # 0.2 10^3/ul (0.0-0.5); EOSINOPHILS % 2.8 % (0.0-7.0); HEMATOCRIT 31.5 % (42.0-52.0); HEMOGLOBIN 10.4 g/dl (14.0-18.0); LYMPHOCYTES # 1.2 10^3/ul (0.8-2.9); LYMPHOCYTES % 20.3 % (15.0-51.0); MEAN CORPUSCULAR HEMOGLOBIN 28.4 pg (29.0-33.0); MEAN CORPUSCULAR VOLUME 86.1 fl (82.0-101.0); MEAN PLATELET VOLUME 10.5 fl (7.4-10.4); MONOCYTE # 0.6 10^3/ul (0.3-0.9); MONOCYTES % 10.2 % (0.0-11.0); NEUTROPHIL # 3.8 10^3/ul (1.6-7.5); NEUTROPHILS % 65.7 % (39.0-77.0); PLATELET COUNT 177 10^3/UL (140-415); RED BLOOD COUNT 3.66 10^6/ul (4.70-6.10); RED CELL DISTRIBUTION WIDTH 15.5 % (11.5-14.5); WHITE BLOOD COUNT 5.8 10^3/ul (4.8-10.8)
[2017-01-11 19:12] LABS: INR 1.16; PROTIME 14.9 Sec (12.2-14.2); PT RATIO 1.2
[2017-01-11 19:13] LABS: PARTIAL THROMBOPLASTIN TIME 28.6 Sec (25.0-35.0)
[2017-01-11 19:17] LABS: CALCIUM 9.2 mg/dl (8.4-10.2); CREATININE 4.3 mg/dl (0.61-1.24); POTASSIUM 3.8 mmol/L (3.5-5.1)
[2017-01-11 19:29] LABS: TROPONIN-I 0.062 ng/ml (0.00-0.12)
--- NOTE | 2017-01-11 19:48 | RADRPT ---
PROCEDURE: XR Chest. CLINICAL INDICATION: Chest pain. TECHNIQUE: Single frontal view of the chest was obtained. COMPARISON: Chest x-ray 10/12/2016 10:23 p.m. FINDINGS: A large-bore central venous catheter enters from a right internal jugular vein approach with its tip in the superior vena cava. There are degenerative osteophytes in the thoracic spine. The left miguel tricle is enlarged. The cardiomediastinal silhouette and hilar structures are normal. The pulmonary vasculature is normal. There are vascular calcifications in the aortic arch. There is consolidativ e infiltrate in the left lower lobe. There is a left pleural effusion. Small right pleural effusio n is suspected. IMPRESSION: 1. Consolidative infiltrate in the left lower lobe suspicious for pneumonia with bilateral pleural e ffusions larger on the left side than right. 2. Right-sided dialysis catheter with its tip at the right atrial superior vena cava junction witho ut evidence of pneumothorax. 3. Atherosclerotic vascular disease. 4. Spondylosis of the thoracic spine. 5. Cardiomegaly. RPTAT:AAJJ Physician Shaheen Date Time Electronically viewed and signed by Physician Shaheen on 01/11/2017 19:48 FLORES/
[2017-01-11] MEDS ORDERED: APIX5TAB PO (21:07)
[2017-01-11] MEDS ORDERED: NIFE30TA60 PO (21:08)
[2017-01-11] MEDS ORDERED: NIFE60TA7 PO (21:08)
[2017-01-11] MEDS ORDERED: HYDR-3670 PO (21:08)
[2017-01-11] MEDS ORDERED: ATOR40TA68 PO (21:09)
[2017-01-11] MEDS ORDERED: KENC1 TOP (21:10)
[2017-01-11 21:13] VITALS: TEMP 98.5
--- NOTE | 2017-01-11 21:58 | RADRPT ---
PROCEDURE: CT Chest without contrast. CLINICAL INDICATION: Evaluate for pleural effusion versus pneumonia TECHNIQUE: CT scan of the chest without contrast was performed on a multidetector high-resolution CT scanner. Coronal and sagittal reformatted images were obtained from the axial source images. The total exam CTDI equals 9.76 mGy and the total exam DLP equals 363.32 mGy-cm. One or more the following dose reduction techniques were utilized: Automated exposure control, adjus tment of the mA and / or kV according to patient's size, or use of iterative reconstruction techniqu e. COMPARISON: Chest x-ray of 01/11/2017 FINDINGS: Calcification in thoracoabdominal aorta and great vessels. Right central venous catheter tip in mid right atrium. Coronary artery calcification. Moderate left pleural effusion with left lower lobe and to a lesser extent left upper lobe partial atelectasis. No enlarged mediastinal lymph nodes are seen. Calcification in region of aortic valve. Trace pericardial fluid. Calcification in bilatera l renal arteries. Approximate 1.9 cm oval fluid density structure partially imaged in visualized mi d left kidney likely a cyst. Vascular calcifications in the spleen. Calcification in superior mese nteric, splenic, hepatic, celiac arteries. No adrenal abnormality is seen. Scattered linear atelec tasis/fibrosis are seen in the lungs. There is appearance of "tree in bud" densities in the right l ower lobe suggestive of infectious/inflammatory bronchiolitis. Degenerative changes in thoracic spi ne. Right lateral bridging osteophytes in thoracic spine. Left lateral bridging osteophytes in lower thoracic spine. Calcification in the anterior longitudinal ligament anterior to multiple thor acic vertebral bodies suggestive of diffuse idiopathic skeletal hyperostosis. IMPRESSION: Moderate left pleural effusion with left lower lobe and to a lesser extent left upper lobe partial a telectasis. "Tree in bud" densities in the right lower lobe suggestive of infectious/inflammatory br onchiolitis. Atherosclerosis. Please see above. RPTAT: HJES .Sacha Coughlin MD, Date Time Electronically viewed and signed by .Sacha Coughlin MD, on 01/11/2017 21:57 .S/
[2017-01-11] MEDS ORDERED: ONDANSETRON 4 MG INJ IV PRN (22:00)
[2017-01-11] MEDS ORDERED: ACETAMINOPHEN 325 MG TAB PO PRN (22:00)
[2017-01-12] VITALS (20 sets, daily range): BP systolic 132–200; BP diastolic 68–102; PULSE 68–98; RESP 20; Ht 172.7 cm; Wt 64.4 kg
[2017-01-12] MEDS ORDERED: HYDROCODONE/APAP (5/325) TAB PO PRN
[2017-01-12] MEDS ORDERED: NACL 0.9% 3 ML SYG IV SCH
[2017-01-12] MEDS ORDERED: ACETAMINOPHEN 325 MG TAB PO PRN
[2017-01-12] MEDS ORDERED: DOCUSATE SODIUM 100 MG CAP PO PRN
[2017-01-12] MEDS ORDERED: ONDANSETRON 4 MG INJ IV PRN
[2017-01-12] MEDS ORDERED: morphine 2 MG INJ IV PRN
[2017-01-12] MEDS ORDERED: ZOLPIDEM 5 MG TAB PO PRN
--- NOTE | 2017-01-12 00:10 | HP ---
DATE OF ADMISSION: 01/11/2017 CHIEF COMPLAINT: Chest pain. HISTORY OF PRESENT ILLNESS: The patient is a 76-year-old male with a history of end-stage renal dis ease on dialysis, CHF, AFib, diabetes, coronary artery disease. The patient presents with chest marco antonio n that began earlier today while he was getting dialysis. The patient states that his chest pain re solved. He denies any shortness of breath now or when he has the chest pain. Denied any diaphoresi s, nausea, vomiting. In the ED, the patient's chest x-ray showed bilateral pleural effusions, large r on the left than the right. The patient has no complaints at this time. PAST MEDICAL HISTORY: As per HPI. HOME MEDICATIONS: Please see medication reconciliation. ALLERGIES: NO KNOWN DRUG ALLERGIES. FAMILY HISTORY: Noncontributory. SOCIAL HISTORY: Denies any alcohol, tobacco, or drugs. REVIEW OF SYSTEMS: A 12-point review of systems negative except for that discussed in HPI. PHYSICAL EXAMINATION: VITAL SIGNS: Temperature 98.5, pulse 80, respiratory rate 16, BP is 188/97. Saturation 100% on elis m air. GENERAL: No acute distress, alert and oriented. HEENT: Normocephalic, atraumatic. LUNGS: Clear to auscultation. CARDIOVASCULAR: Regular rate and rhythm. ABDOMEN: Nondistended, nontender, soft. EXTREMITIES: No clubbing, cyanosis, or edema. LABORATORY TESTS: White count 5.8, hemoglobin is 10.4, platelets are 137. Chemistry within normal limits except for BUN of 28, creatinine of 4.3, glucose is 242. BNP is 90,100. DIAGNOSTICS: Chest x-ray, once again, shows bilateral pleural effusions, larger on the left than ri ght. Chest CT shows moderate left pleural effusion with left lower lobe and, to a lesser extent, le ft upper lobe partial atelectasis. ASSESSMENT AND PLAN: 1. Chest pain, likely secondary to left-sided pleural effusion. The patient may need to get more v olume removed via dialysis. We will consult Dr. Tolbert, who is his photo studio assistant during his recent hospitalization. Also consult, Dr. Umana who was his therapeutic sales specialist during last hospitalization. S o far there is no evidence of acute coronary syndrome. His first troponin is negative. EKG done in the ED shows normal sinus rhythm with no new ST elevations. The patient does have T wave inversion s in V4 through V6. The patient had the inversions in previous EKG. Will trend troponins. Of note , chest pain has now resolved. 2. End-stage renal disease. Continue dialysis per nephrology. 3. History of coronary artery disease. Cardiac consultation. 4. Hypertension. Continue home medications. 5. Cardiomyopathy. Continue home medications. 6. Prophylaxis: Sequential compression devices. Dictated By: JANAE ELDRIDGE MD BS/CHANTALE Conf#: [id number] DID#: [id number]
[2017-01-12] MEDS ORDERED: GLUCOSE GEL 15 GRAM TUBE BUCCAL PRN (00:30)
[2017-01-12] MEDS ORDERED: GLUCOSE GEL 15 GRAM TUBE PO PRN ×2 (00:30)
[2017-01-12] MEDS ORDERED: GLUCAGON 1 MG INJ IM PRN (00:30)
[2017-01-12] MEDS ORDERED: DEXTROSE 50% 50 ML SYRINGE IV PRN ×2 (00:30)
[2017-01-12 01:10] LABS: TROPONIN-I 0.073 ng/ml (0.00-0.12)
[2017-01-12 01:26] LABS: CK-MB 1.08 ng/ml (0.0-2.4)
[2017-01-12] MEDS: FUROSEMIDE 40 MG TAB PO SCH ×2 (06:35→16:57)
[2017-01-12] MEDS: PANTOPRAZOLE (EC) 40 MG TAB PO SCH (06:35)
[2017-01-12] MEDS: hydrALAzine 20 MG INJ IV PRN ×2 (06:36→20:39)
[2017-01-12] MEDS: NITROGLYCERIN (SL) 0.4 MG TAB SL PRN ×2 (06:53→07:25)
[2017-01-12 06:56] LABS: ADD SCAN DIFF NO
[2017-01-12 07:03] LABS: BASOPHILS % 0.6 % (0.0-2.0); EOSINOPHILS # 0.3 10^3/ul (0.0-0.5); EOSINOPHILS % 3.7 % (0.0-7.0); HEMATOCRIT 35.9 % (42.0-52.0); HEMOGLOBIN 11.5 g/dl (14.0-18.0); LYMPHOCYTES # 1.7 10^3/ul (0.8-2.9); LYMPHOCYTES % 24.7 % (15.0-51.0); MEAN CORPUSCULAR VOLUME 87.6 fl (82.0-101.0); MEAN PLATELET VOLUME 10.7 fl (7.4-10.4); MONOCYTE # 0.7 10^3/ul (0.3-0.9); MONOCYTES % 10.3 % (0.0-11.0); NEUTROPHIL # 4.1 10^3/ul (1.6-7.5); NEUTROPHILS % 60.6 % (39.0-77.0); PLATELET COUNT 196 10^3/UL (140-415); RED CELL DISTRIBUTION WIDTH 15.9 % (11.5-14.5); WHITE BLOOD COUNT 6.7 10^3/ul (4.8-10.8)
[2017-01-12 07:22] LABS: CALCIUM 9.4 mg/dl (8.4-10.2); CREATININE 5.62 mg/dl (0.61-1.24); MAGNESIUM 1.9 mg/dl (1.7-2.5); PHOSPHORUS 3.8 mg/dl (2.5-4.9); POTASSIUM 3.9 mmol/L (3.5-5.1)
[2017-01-12 07:37] LABS: TROPONIN-I 0.073 ng/ml (0.00-0.12)
[2017-01-12 07:40] LABS: CK-MB 1.12 ng/ml (0.0-2.4)
[2017-01-12] MEDS: INSULIN ASPART [NOVOLOG] 3 ML PEN SC SCH ×5 (07:55→21:00)
[2017-01-12] MEDS ORDERED: NIFEdipine (XL) 30 MG TAB PO SCH (09:00)
[2017-01-12] MEDS: APIXABAN 5 MG TABLET PO SCH ×2 (09:18→20:39)
[2017-01-12] MEDS: BENAZEPRIL 40 MG TAB PO SCH (09:19)
[2017-01-12] MEDS: CLOPIDOGREL 75 MG TAB PO SCH (09:19)
[2017-01-12] MEDS: METOPROLOL (XL) 25 MG TAB PO SCH (09:19)
[2017-01-12] MEDS: TRIAMCINOLONE ACET 0.1% 15 GM CR TOP SCH ×2 (09:20→21:00)
--- NOTE | 2017-01-12 15:59 | PN ---
Date/Time of Note Date/Time of Note DATE: 01/12/17 TIME: 15:56 Assessment/Plan VTE Prophylaxis VTE Prophylaxis Intervention: SCD's Lines/Catheters IV [facility] Urinary Cath still in place: No Assessment/Plan Chief Complaint/Hosp Course Assessment and plan 1. Chest pain. Suspect secondary to pleural effusion. Continue with dialysis. Control Systems Designer follow. Follow-up on serial troponins. Of note patient did have EKG with T-wave inversions in V4 through V6. Continue telemetry monitoring 2. End-stage renal disease. Continue on dialysis 3. History of CAD. Continue on statin medication. Patient on apixaban 4. Essential hypertension. Continue antihypertensives and adjust as needed 5. Cardiopathy. Continue optimization with cardiovascular medications DVT prophylaxis: SCDs Disposition and plan: Continue dialysis. Follow-up on patient respiratory status. Await for clinical improvement. Follow-up with chronic care nurse recommendations. Discussed plan of care with Dr. Field Problems: Subjective 24 Hr Interval Summary Free Text/Dictation Denies any chest pain at this time. No specific complaints. Exam/Review of Systems Vital Signs Vitals Vital Signs Date Time Temp Pulse Resp B/P Pulse Ox O2 Delivery O2 Flow Rate FiO2 01/12/17 15:09 97.6 68 20 163/83 97 01/12/17 06:55 Room Air Exam Constitutional: alert, frail, oriented Head: normocephalic Neck: supple, No jvd Respiratory: clear to auscultation, normal air movement Cardiovascular: other (regular rate) Gastrointestinal: non-tender, soft Extremities: normal pulses Neurological: AGENCY DIRECTOR II-XII intact, nl mental status, nl speech Results Result Diagram: 01/12/17 0610 01/12/17 0610 Results 24 hrs Laboratory Tests Test 01/11/17 18:45 01/12/17 00:20 01/12/17 06:10 01/12/17 08:42 White Blood Count 5.8 6.7 Red Blood Count 3.66 L 4.10 L Hemoglobin 10.4 L 11.5 L Hematocrit 31.5 L 35.9 L Mean Corpuscular Volume 86.1 87.6 Mean Corpuscular Hemoglobin 28.4 L 28.0 L Mean Corpuscular Hemoglobin Concent 33.0 32.0 Red Cell Distribution Width 15.5 H 15.9 H Platelet Count 177 196 Mean Platelet Volume 10.5 H 10.7 H Neutrophils % 65.7 60.6 Lymphocytes % 20.3 24.7 Monocytes % 10.2 10.3 Eosinophils % 2.8 3.7 Basophils % 0.5 0.6 Nucleated Red Blood Cells % 0.0 0.0 Neutrophils # 3.8 4.1 Lymphocytes # 1.2 1.7 Monocytes # 0.6 0.7 Eosinophils # 0.2 0.3 Basophils # 0.0 0.0 Nucleated Red Blood Cells # 0.0 0.0 Prothrombin Time 14.9 H Prothrombin Time Ratio 1.2 INR International Normalized Ratio 1.16 Activated Partial Thromboplast Time 28.6 Sodium Level 139 139 Potassium Level 3.8 3.9 Chloride Level 94 L 95 L Carbon Dioxide Level 31 33 H Anion Gap 18 H 15 Blood Urea Nitrogen 28 H 35 H Creatinine 4.30 H 5.62 H Glucose Level 242 H 136 # Calcium Level 9.2 9.4 Troponin I 0.062 0.073 0.073 B-Type Natriuretic Peptide 64520 H Creatine Kinase 27 25 Creatine Kinase Index 4.0 4.5 Creatinine Kinase MB (Mass) 1.08 1.12 Hemoglobin A1c 7.3 H Phosphorus Level 3.8 Magnesium Level 1.9 Bedside Glucose 165 Test 01/12/17 12:41 Bedside Glucose 179 Medications Medications Current Medications Ondansetron HCl (Zofran Inj) 4 mg Q6H PRN IV NAUSEA AND/OR VOMITING; Start at 00:00 Acetaminophen (Tylenol Tab) 650 mg Q6H PRN PO PAIN LEVEL 1-3 OR FEVER; Start at 00:00 Acetaminophen/ Hydrocodone Bitart ([place] (5/325)) 1 tab Q6H PRN PO MODERATE PAIN LEVEL 4-6; Start 01/12/17 at 00:00 Morphine Sulfate (morphine) 2 mg Q4H PRN IV SEVERE PAIN LEVEL 7-10 Last administered on 01/12/17t 09:16; Admin Dose 2 MG; Start 01/12/17 at 00:00 Docusate Sodium (Colace) 100 mg Q12H PRN PO CONSTIPATION; Start 01/12/17 at 00: 00 Zolpidem Tartrate (Ambien) 5 mg QHS PRN PO SLEEP; Start 01/12/17 at 00:00 Apixaban (Eliquis) 5 mg BID PO Last administered on 01/12/17 09:18; Admin Dose 5 MG; Start 01/12/17 at 09:00 Atorvastatin Calcium (Lipitor) 40 mg QHS PO ; Start 01/12/17 at 21:00 Benazepril HCl (Lotensin) 40 mg DAILY PO Last administered on 01/12/17 09:19; Admin Dose 40 MG; Start 01/12/17 at 09:00 Clopidogrel Bisulfate (plaVIX) 75 mg DAILY PO Last administered on 01/12/17 09 :19; Admin Dose 75 MG; Start 01/12/17 at 09:00 Hydralazine HCl (Apresoline) 10 mg TID PO Last administered on 01/12/17 09:18 ; Admin Dose 10 MG; Start 01/12/17 at 09:00 Metoprolol Succinate (Toprol Xl) 75 mg DAILY PO Last administered on 01/12/17 09:19; Admin Dose 75 MG; Start 01/12/17 at 09:00 Nifedipine (Procardia Xl) 30 mg QAM PO Last administered on 01/12/17 09:19; Admin Dose 30 MG; Start 01/12/17 at 09:00 Nifedipine (Procardia Xl) 60 mg QHS PO ; Start 01/12/17 at 21:00 Triamcinolone Acetonide (Kenalog 0.1% Cr) 1 applic BID TOP Last administered on 01/12/17 09:20; Admin Dose 1 APPLIC; Start 01/12/17 at 09:00 Pantoprazole (Protonix Tab) 40 mg DAILY@06 PO Last administered on 01/12/17 06 :35; Admin Dose 40 MG; Start 01/12/17 at 06:00 Nitroglycerin (Nitroglycerin (Sl Tab) 0.4 Mg) 1 tab Q5M PRN SL ANGINA Last administered on 01/12/17 07:25; Admin Dose 1 TAB; Start 01/12/17 at 00:00 Miscellaneous Information 1 ea NOTE XX ; Start 01/12/17 at 00:30 Glucose (Glutose) 15 gm Q15M PRN PO DECREASED GLUCOSE; Start 01/12/17 at 00:30 Glucose (Glutose) 22.5 gm Q15M PRN PO DECREASED GLUCOSE; Start 01/12/17 at 00: 30 Dextrose (D50w Syringe) 25 ml Q15M PRN IV DECREASED GLUCOSE; Start 01/12/17 at 00:30 Dextrose (D50w Syringe) 50 ml Q15M PRN IV DECREASED GLUCOSE; Start 01/12/17 at 00:30 Glucagon (Glucagen) 1 mg Q15M PRN IM DECREASED GLUCOSE; Start 01/12/17 at 00:30 Glucose (Glutose) 15 gm Q15M PRN BUCCAL DECREASED GLUCOSE; Start 01/12/17 at 00 :30 Diagnostic Test (Pha) (Accu-Chek) 1 ea 02 XX ; Start 01/13/17 at 02:00 Hydralazine HCl (Apresoline) 10 mg Q2H PRN IV ELEVATED SYSTOLIC BP Last administered on 01/12/17t 06:36; Admin Dose 10 MG; Start 01/12/17 at 06:13 WILEY BOONE Jan 12, 2017 15:59
--- NOTE | 2017-01-12 18:12 | CONS ---
DATE OF ADMISSION: 01/11/2017 DATE OF CONSULTATION: 01/12/2017 TYPE OF CONSULTATION: Cardiology REASON FOR CONSULTATION: Chest pain, assess for acute coronary syndrome. REQUESTING PHYSICIAN: Janae Eldridge MD from the hospitalist service. HISTORY OF PRESENT ILLNESS: Mr. Sandoval is a very pleasant 76-year-old male with history of PTCA and stent placement 08/2016 at [facility], status post left heart catheterization here at [facility] 10/2016 revealing moderate disease distal left main and mid LAD, but other mcdonald patent vessels and no significant obstructive disease and patent stents, atrial fibrillation, h ypertension, diabetes mellitus, cardiomyopathy with severely depressed left ventricular ejection fra ction last one approximately 25% by echo 10/2016, who presented with complaints of substernal chest pain. Upon arrival, temperature of 98.6, blood pressure 170/85, pulse 86, respiratory rate 20, satu rating 96%. The patient's labs revealed a white blood cell count of 5.8, hemoglobin 10.4, platelet count 177. Sodium 139, potassium 3.9, creatinine 5.6, BUN 35, carbon dioxide 33. Hemoglobin A1c of 7.3. Troponin negative. BNP of 90,100. INR 1.1. The patient's electrocardiogram revealed sinus rhythm, first-degree AV block, lateral T-wave inversions, left ventricular hypertrophy by voltage cr iteria. The patient has been admitted to the floor. Since admit to the floor, continued to have el evated systolic blood pressures. PAST MEDICAL HISTORY: As above in HPI. MEDICATIONS CURRENTLY IN HOSPITAL: 1. Lipitor 40 mg at bedtime. 2. Procardia 60 mg at bedtime. 3. Eliquis 5 mg b.i.d. 4. Benazepril 40 mg daily. 5. Plavix 75 mg daily. 6. Hydralazine 10 mg p.o. t.i.d. 7. Toprol-XL 75 mg daily. 8. Procardia-XL 30 mg q.a.m. 9. Lasix 40 mg p.o. b.i.d. 10. Protonix 40 mg daily. ALLERGIES: NO KNOWN DRUG ALLERGIES. SOCIAL HISTORY: No tobacco, ETOH or illicit drug use. FAMILY HISTORY: Negative for sudden cardiac or early CAD. REVIEW OF SYSTEMS: As above in HPI. CONSTITUTIONAL: No fevers, chills. PULMONARY: No current shortness of breath. CARDIOVASCULAR: Chest pain. GASTROINTESTINAL: No vomiting. GENITOURINARY: No hematuria. MUSCULOSKELETAL: Degenerative joint disease. PSYCHIATRIC: The patient denies depression. NEUROLOGIC: No documented history of CVA. PHYSICAL EXAMINATION VITAL SIGNS: Temperature 98.5, blood pressure most recently of 132/89, pulse 68, respiratory rate 2 0, saturating 97%. GENERAL: The patient is alert, awake, complaining of intermittent chest pain. NECK: JVP approximately 9 cm water. CHEST: Fair movement throughout, mild decreased breath sounds at bases bilaterally. HEART: Regular rate and rhythm. Normal S1, S2, I/ systolic murmur, laterally displaced PMI. ABDOMEN: Positive bowel sounds, soft. EXTREMITIES: Trace edema, 1+ pulses bilaterally, posterior tibial. LABORATORY DATA: As above in HPI, with most recent from today, sodium 139, potassium 3.9, creatinin e 5.62, BUN 35, magnesium 1.9. White count 6.7, hemoglobin 11.5, platelet count 196. INR 1.1. IMAGING STUDIES: Chest CT from 01/11/2017 revealing moderate left pleural effusion, left lower lobe and to a lesser extent left upper lobe atelectasis and a tree-in-bud density in the right lower lob e suggestive of infectious inflammatory bronchiolitis. A chest x-ray from 01/11/2017 revealing cons olidative infiltrate in the left lower lobe suspicious for pneumonia with bilateral pleural effusion s, larger on the left side than the right. ECG: As above in HPI. No further electrocardiograms for my review at this time. IMPRESSION: 1. Chest pain, assess for acute coronary syndrome. 2. Cardiomyopathy with severely depressed left ventricular ejection fraction. 3. History of percutaneous transluminal coronary angioplasty and stent placement, most recently at [facility] 08/2016. 4. Congestive heart failure, systolic, acute on chronic. 5. End-stage renal disease, on hemodialysis. 6. Hypertension, uncontrolled. 7. Dyslipidemia. RECOMMENDATIONS: 1. At this time, would maintain the patient on telemetry monitoring to follow rhythm and rate contr ol closely. 2. Would continue the patient's Plavix and resume the patient's baseline aspirin for stent patency. 3. Increase the patient's baseline antihypertensives to improve overall systolic blood pressure con trol and thus, we will start by increasing Procardia to 60 mg b.i.d., continue the patient's Toprol- XL, benazepril and hydralazine. 4. Continue Lasix but also continue hemodialysis for volume removal. 5. Continue the patient's current statin therapy and adjust it according to a fasting lipid panel. 6. We will check an additional troponin to ensure that the patient's chest pain is not due to acute coronary syndrome, acute myocardial infarction, and likely due to demand of uncontrolled syst olic blood pressures. Dictated By: AIYANA OWENS/CHANTALE Conf#: [id number] DID#: [id number] CC: JANAE ELDRIDGE MD;*EndCC*
[2017-01-12] MEDS: ATORVASTATIN 40 MG TAB PO SCH (20:39)
[2017-01-12] MEDS ORDERED: NIFEdipine (XL) 60 MG TAB PO SCH (21:00)
[2017-01-13] VITALS (21 sets, daily range): BP systolic 107–177; BP diastolic 66–92; PULSE 68–100; RESP 18–21
[2017-01-13] MEDS: ACCUCHECK AT 2AM (Patients on SS coverage) XX SCH (02:00)
[2017-01-13] MEDS: hydrALAzine 20 MG INJ IV PRN (04:02)
[2017-01-13] MEDS: FUROSEMIDE 40 MG TAB PO SCH ×2 (05:30→17:04)
[2017-01-13] MEDS: PANTOPRAZOLE (EC) 40 MG TAB PO SCH (05:30)
[2017-01-13 06:03] LABS: ADD SCAN DIFF NO
[2017-01-13 06:11] LABS: BASOPHILS % 0.7 % (0.0-2.0); EOSINOPHILS # 0.2 10^3/ul (0.0-0.5); EOSINOPHILS % 3.4 % (0.0-7.0); HEMATOCRIT 38.3 % (42.0-52.0); HEMOGLOBIN 12.1 g/dl (14.0-18.0); LYMPHOCYTES # 1.4 10^3/ul (0.8-2.9); LYMPHOCYTES % 23.1 % (15.0-51.0); MEAN CORPUSCULAR HEMOGLOBIN 27.9 pg (29.0-33.0); MEAN CORPUSCULAR HGB CONC 31.6 g/dl (32.0-37.0); MEAN CORPUSCULAR VOLUME 88.2 fl (82.0-101.0); MEAN PLATELET VOLUME 11.2 fl (7.4-10.4); MONOCYTE # 0.7 10^3/ul (0.3-0.9); MONOCYTES % 11.1 % (0.0-11.0); NEUTROPHIL # 3.8 10^3/ul (1.6-7.5); NEUTROPHILS % 61.4 % (39.0-77.0); PLATELET COUNT 164 10^3/UL (140-415); RED BLOOD COUNT 4.34 10^6/ul (4.70-6.10); RED CELL DISTRIBUTION WIDTH 16.9 % (11.5-14.5); WHITE BLOOD COUNT 6.1 10^3/ul (4.8-10.8)
[2017-01-13 06:56] LABS: CALCIUM 9.7 mg/dl (8.4-10.2); CREATININE 4.96 mg/dl (0.61-1.24); MAGNESIUM 1.9 mg/dl (1.7-2.5); PHOSPHORUS 4.1 mg/dl (2.5-4.9); POTASSIUM 4.1 mmol/L (3.5-5.1)
[2017-01-13 07:01] LABS: CHOL/HDL RATIO 3.1 RATIO
--- NOTE | 2017-01-13 07:24 | CONS ---
DATE OF ADMISSION: 01/11/2017 DATE OF CONSULTATION: 01/12/2017 TYPE OF CONSULTATION: Nephrology PHYSICIAN REQUESTING CONSULT: Neal Escobar MD HISTORY OF PRESENT ILLNESS: This is a 76-year-old male with a past medical history of end-stage chelsy al disease on dialysis Monday, Monday, Monday, access PermCath, last hemodialysis was yesterday. History of hypertension, history of anemia, history of AFib, history of coronary artery disease, hi story of diabetes, who presents to [facility] with complaints of chest pain. The patient was at hemodialysis and during the course of dialysis, the patient developed chest pain. As a result, paramedics brought him to the emergency room for evaluation. The patient was subsequentl y in the ER, had a chest x-ray and CT scan of the chest, which showed left pleural effusions an d densities in the right lobe suggestive of an infectious bronchiolitis. The patient was subsequent ly admitted to telemetry for further evaluation. Upon my evaluation of the patient at this time is complaining of some mild chest discomfort, but oth erwise denies any fevers, chills, nausea, vomiting. PAST MEDICAL HISTORY: History of end-stage renal disease, history of anemia, history of coronary ar kameron disease, history of hypertension, history of AFib. MEDICATIONS: The patient's medications have been reviewed. PAST SURGICAL HISTORY: Status post PermCath placement. ALLERGIES: NO KNOWN DRUG ALLERGIES. FAMILY HISTORY: Noncontributory. SOCIAL HISTORY: Does not drink, smoke or do drugs. REVIEW OF SYSTEMS: A 14-point review of systems was conducted. Pertinent positives stated in the H PI, otherwise negative. PHYSICAL EXAMINATION: VITAL SIGNS: Blood pressure is 171/81, respirations 20, pulse 84, temperature 98.0. HEENT: Head is normocephalic. Pupils are reactive to light. NECK: Supple. HEART: Regular rate. LUNGS: Show diminished breath sounds at the bases. ABDOMEN: Soft, . MUSCULOSKELETAL: No joint effusion. NEUROLOGIC: No focal deficits. LABORATORY DATA: Shows white count 6.7, hemoglobin 9.5, hematocrit 35.9, platelet count 196. Sodiu m 139, potassium 3.9, chloride 95, BUN 35, creatinine 5.62. Hemoglobin A1c 7.3. Troponin is negati ve x3. BNP 90,000. ASSESSMENT AND PLAN: This is a 76-year-old male who presents with: 1. End-stage renal disease. The patient is on dialysis Monday, Monday, Monday with access PermC ath. Plan for dialysis today for solute clearance and volume removal. We will dialyze for 3 hours, 3 K bath, calcium 2.5, ultrafiltrate as tolerated. 2. Volume overload. The patient has bilateral pleural effusions. We will continue ultrafiltr ation with hemodialysis and monitor closely. 3. Anemia. Continue to monitor hemoglobin and hematocrit levels. We will give Epogen with dialysi s as needed. 4. Mineral bone disorder. We will continue to monitor calcium and phosphorus levels. Continue ph osphate binders. 5. Hypertension. Continue current blood pressure regimen. Continue ultrafiltration dialysis. 6. Chest pain. The patient is being ruled out for acute coronary syndrome. Troponins were negativ e x3. We will continue to monitor. May consider cardiology evaluation. 7. History of cardiomyopathy. Continue medical management. 8. Atrial fibrillation. The patient is currently rate controlled. Continue Eliquis. Continue cur rent treatment plan. Monitor on telemetry. Thank you, Dr. Escobar, for this interesting consultation. It will be a pleasure to follow the conor ent with you throughout the hospital course. Dictated By: NOEMI BOTELLO/CHANTALE Conf#: [id number] DID#: [id number]
[2017-01-13] MEDS: INSULIN ASPART [NOVOLOG] 3 ML PEN SC SCH ×4 (07:55→21:00)
[2017-01-13] MEDS: CLOPIDOGREL 75 MG TAB PO SCH (09:57)
[2017-01-13] MEDS: ASPIRIN 325 MG TAB PO SCH (09:57)
[2017-01-13] MEDS: APIXABAN 5 MG TABLET PO SCH ×2 (09:57→21:59)
[2017-01-13] MEDS: BENAZEPRIL 40 MG TAB PO SCH (09:58)
[2017-01-13] MEDS: TRIAMCINOLONE ACET 0.1% 15 GM CR TOP SCH ×2 (09:59→21:00)
[2017-01-13] MEDS: METOPROLOL (XL) 25 MG TAB PO SCH (09:59)
--- NOTE | 2017-01-13 10:14 | RADRPT ---
Vent Rate: 86 bpm RR Interval: 0 msec FL Interval: 262 msec QRS Duration: 106 msec QT Interval: 384 msec QTC Interval: 459 msec P-R-T [place]: 88 - 47 - 0 degrees Sinus rhythm with 1st degree AV block Left ventricular hypertrophy with repolarization abnormality Abnormal ECG Electronically Signed By: Delonte Ferguson [id number]
--- NOTE | 2017-01-13 11:30 | CONS ---
Date/Time of Note Date/Time of Note DATE: 01/13/17 TIME: 11:27 Assessment/Plan Assessment/Plan Additional Assessment/Plan 1. Chest pain, assess for acute coronary syndrome - no CP now, con't med rx. 2. Cardiomyopathy with severely depressed left ventricular ejection fraction - euvolemic by exam. 3. History of percutaneous transluminal coronary angioplasty and stent placement, most recently at [facility] 08/2016- on Rx now. 4. Congestive heart failure, systolic, acute on chronic. 5. End-stage renal disease, on hemodialysis. REmove fluid as tolerated. 6. Hypertension - better Rx now. 7. Dyslipidemia. Consultation Date/Type/Reason Admit Date/Time Jan 11, 2017 at 21:44 Initial Consult Date 24 HR Interval Summary Free Text/Dictation NO acute change - BP labile, HD to follow. ROS: No fever, no chills, no nausea, no vomiting, no diarrhea/constipation No recent weight changes No chest pain, no PND, no orthopnea No dizziness, blurred vision No thirst, no heat or cold intolerance Exam/Review of Systems Vital Signs Vitals Vital Signs Date Time Temp Pulse Resp B/P Pulse Ox O2 Delivery O2 Flow Rate FiO2 01/13/17 11:09 98.3 75 18 177/87 96 01/13/17 05:00 Room Air Intake and Output 01/12/17 01/12/17 01/13/17 15:00 23:00 07:00 Intake Total 400 ml 240 ml 300 ml Output Total 2600 ml Balance -2200 ml 240 ml 300 ml Exam General: WN/WD/NAD, AOx 3 HEENT: Unicetric/atraumatic/EOMI (follow commands) NECK: JVD elevated, no thyromegaly Lymph: no lymphadenopathy HEART: regular with no S3, II/ systolic murmur at apex - PMI L LUNGS: Coarse sounds ABD: soft, NT, ND, +BS : Intact Neuro: non focal SKIN: chronic changes EXT: trace edema Results Result Diagram: 01/13/17 0535 01/13/17 0535 Results 24 hrs Laboratory Tests Test 01/12/17 12:41 01/12/17 16:55 01/12/17 21:12 01/13/17 05:35 Bedside Glucose 179 168 165 White Blood Count 6.1 Red Blood Count 4.34 L Hemoglobin 12.1 L Hematocrit 38.3 L Mean Corpuscular Volume 88.2 Mean Corpuscular Hemoglobin 27.9 L Mean Corpuscular Hemoglobin Concent 31.6 L Red Cell Distribution Width 16.9 H Platelet Count 164 Mean Platelet Volume 11.2 H Neutrophils % 61.4 Lymphocytes % 23.1 Monocytes % 11.1 H Eosinophils % 3.4 Basophils % 0.7 Nucleated Red Blood Cells % 0.0 Neutrophils # 3.8 Lymphocytes # 1.4 Monocytes # 0.7 Eosinophils # 0.2 Basophils # 0.0 Nucleated Red Blood Cells # 0.0 Sodium Level 140 Potassium Level 4.1 Chloride Level 99 Carbon Dioxide Level 27 Anion Gap 18 H Blood Urea Nitrogen 32 H Creatinine 4.96 H Glucose Level 154 Calcium Level 9.7 Phosphorus Level 4.1 Magnesium Level 1.9 Triglycerides Level 100 Cholesterol Level 114 LDL Cholesterol, Calculated 58 HDL Cholesterol 36 Cholesterol/HDL Ratio 3.1 Test 01/13/17 08:09 Bedside Glucose 136 Medications Medications Current Medications Ondansetron HCl (Zofran Inj) 4 mg Q6H PRN IV NAUSEA AND/OR VOMITING; Start at 00:00 Acetaminophen (Tylenol Tab) 650 mg Q6H PRN PO PAIN LEVEL 1-3 OR FEVER; Start at 00:00 Acetaminophen/ Hydrocodone Bitart (Loyal (5/325)) 1 tab Q6H PRN PO MODERATE PAIN LEVEL 4-6; Start 01/12/17 at 00:00 Morphine Sulfate (morphine) 2 mg Q4H PRN IV SEVERE PAIN LEVEL 7-10 Last administered on 01/12/17 09:16; Admin Dose 2 MG; Start 01/12/17 at 00:00 Docusate Sodium (Colace) 100 mg Q12H PRN PO CONSTIPATION; Start 01/12/17 at 00: 00 Zolpidem Tartrate (Ambien) 5 mg QHS PRN PO SLEEP; Start 01/12/17 at 00:00 Apixaban (Eliquis) 5 mg BID PO Last administered on 01/13/17 09:57; Admin Dose 5 MG; Start 01/12/17 at 09:00 Atorvastatin Calcium (Lipitor) 40 mg QHS PO Last administered on 01/12/17 20: 39; Admin Dose 40 MG; Start 01/12/17 at 21:00 Benazepril HCl (Lotensin) 40 mg DAILY PO Last administered on 01/13/17 09:58; Admin Dose 40 MG; Start 01/12/17 at 09:00 Clopidogrel Bisulfate (plaVIX) 75 mg DAILY PO Last administered on 01/13/17 09 :57; Admin Dose 75 MG; Start 01/12/17 at 09:00 Hydralazine HCl (Apresoline) 10 mg TID PO Last administered on 01/13/17 09:58 ; Admin Dose 10 MG; Start 01/12/17 at 09:00 Metoprolol Succinate (Toprol Xl) 75 mg DAILY PO Last administered on 01/13/17 09:59; Admin Dose 75 MG; Start 01/12/17 at 09:00 Triamcinolone Acetonide (Kenalog 0.1% Cr) 1 applic BID TOP Last administered on 01/13/17 09:59; Admin Dose 1 APPLIC; Start 01/12/17 at 09:00 Pantoprazole (Protonix Tab) 40 mg DAILY@06 PO Last administered on 01/13/17 05 :30; Admin Dose 40 MG; Start 01/12/17 at 06:00 Nitroglycerin (Nitroglycerin (Sl Tab) 0.4 Mg) 1 tab Q5M PRN SL ANGINA Last administered on 01/12/17 07:25; Admin Dose 1 TAB; Start 01/12/17 at 00:00 Miscellaneous Information 1 ea NOTE XX ; Start 01/12/17 at 00:30 Glucose (Glutose) 15 gm Q15M PRN PO DECREASED GLUCOSE; Start 01/12/17 at 00:30 Glucose (Glutose) 22.5 gm Q15M PRN PO DECREASED GLUCOSE; Start 01/12/17 at 00: 30 Dextrose (D50w Syringe) 25 ml Q15M PRN IV DECREASED GLUCOSE; Start 01/12/17 at 00:30 Dextrose (D50w Syringe) 50 ml Q15M PRN IV DECREASED GLUCOSE; Start 01/12/17 at 00:30 Glucagon (Glucagen) 1 mg Q15M PRN IM DECREASED GLUCOSE; Start 01/12/17 at 00:30 Glucose (Glutose) 15 gm Q15M PRN BUCCAL DECREASED GLUCOSE; Start 01/12/17 at 00 :30 Diagnostic Test (Pha) (Accu-Chek) 1 ea 02 XX ; Start 01/13/17 at 02:00 Hydralazine HCl (Apresoline) 10 mg Q2H PRN IV ELEVATED SYSTOLIC BP Last administered on 01/13/17 04:02; Admin Dose 10 MG; Start 01/12/17 at 06:13 Nifedipine (Procardia Xl) 60 mg BID PO ; Start 01/13/17 at 21:00 Aspirin (Aspirin) 325 mg DAILY PO Last administered on 01/13/17 09:57; Admin Dose 325 MG; Start 01/13/17 at 09:00 BALAJI YI MD Jan 13, 2017 11:30
--- NOTE | 2017-01-13 15:28 | PN ---
Date/Time of Note Date/Time of Note DATE: 01/13/17 TIME: 15:26 Assessment/Plan VTE Prophylaxis VTE Prophylaxis Intervention: SCD's Lines/Catheters IV Catheter Type (from [facility]): DIALYSIS CATH Urinary Cath still in place: No Assessment/Plan Chief Complaint/Hosp Course Assessment and plan 1. Chest pain. Suspect secondary to pleural effusion. Continue with dialysis. Real Estate Firm Manager following. troponins negative. Of note patient did have EKG with T-wave inversions in V4 through V6. Continue telemetry monitoring 2. End-stage renal disease. Continue on dialysis 3. History of CAD. Continue on statin medication. Patient on apixaban 4. Essential hypertension. Continue antihypertensives and adjust as needed 5. Cardiopathy. Continue optimization with cardiovascular medications DVT prophylaxis: SCDs Disposition and plan: Check follow-up x-ray for hopeful resolution of left- sided pleural effusion. Plan for dialysis today. Discharge when medically stable and cleared by consultants Discussed plan of care with Dr. Field Problems: Subjective 24 Hr Interval Summary Free Text/Dictation Sitting in chair. Denies any chest pain at this time Exam/Review of Systems Vital Signs Vitals Vital Signs Date Time Temp Pulse Resp B/P Pulse Ox O2 Delivery O2 Flow Rate FiO2 01/13/17 15:11 98.0 66 18 158/92 99 01/13/17 05:00 Room Air Intake and Output 01/12/17 01/12/17 01/13/17 15:00 23:00 07:00 Intake Total 400 ml 240 ml 300 ml Output Total 2600 ml Balance -2200 ml 240 ml 300 ml Exam Constitutional: alert, oriented Psych: no complaints Head: normocephalic Neck: supple, No jvd Respiratory: clear to auscultation, normal air movement Cardiovascular: regular rate and rhythm Gastrointestinal: non-tender, soft Musculoskeletal: nl extremities to inspection Neurological: EMAIL MARKETING ASSISTANT II-XII intact, nl mental status, nl speech Skin: nl turgor Results Result Diagram: 01/13/17 0535 01/13/17 0535 Results 24 hrs Laboratory Tests Test 01/12/17 16:55 01/12/17 21:12 01/13/17 05:35 01/13/17 08:09 Bedside Glucose 168 165 136 White Blood Count 6.1 Red Blood Count 4.34 L Hemoglobin 12.1 L Hematocrit 38.3 L Mean Corpuscular Volume 88.2 Mean Corpuscular Hemoglobin 27.9 L Mean Corpuscular Hemoglobin Concent 31.6 L Red Cell Distribution Width 16.9 H Platelet Count 164 Mean Platelet Volume 11.2 H Neutrophils % 61.4 Lymphocytes % 23.1 Monocytes % 11.1 H Eosinophils % 3.4 Basophils % 0.7 Nucleated Red Blood Cells % 0.0 Neutrophils # 3.8 Lymphocytes # 1.4 Monocytes # 0.7 Eosinophils # 0.2 Basophils # 0.0 Nucleated Red Blood Cells # 0.0 Sodium Level 140 Potassium Level 4.1 Chloride Level 99 Carbon Dioxide Level 27 Anion Gap 18 H Blood Urea Nitrogen 32 H Creatinine 4.96 H Glucose Level 154 Calcium Level 9.7 Phosphorus Level 4.1 Magnesium Level 1.9 Triglycerides Level 100 Cholesterol Level 114 LDL Cholesterol, Calculated 58 HDL Cholesterol 36 Cholesterol/HDL Ratio 3.1 Test 01/13/17 12:08 Bedside Glucose 181 Medications Medications Current Medications Ondansetron HCl (Zofran Inj) 4 mg Q6H PRN IV NAUSEA AND/OR VOMITING; Start at 00:00 Acetaminophen (Tylenol Tab) 650 mg Q6H PRN PO PAIN LEVEL 1-3 OR FEVER; Start at 00:00 Acetaminophen/ Hydrocodone Bitart ([place] (5/325)) 1 tab Q6H PRN PO MODERATE PAIN LEVEL 4-6; Start 01/12/17 at 00:00 Morphine Sulfate (morphine) 2 mg Q4H PRN IV SEVERE PAIN LEVEL 7-10 Last administered on 01/12/17 09:16; Admin Dose 2 MG; Start 01/12/17 at 00:00 Docusate Sodium (Colace) 100 mg Q12H PRN PO CONSTIPATION; Start 01/12/17 at 00: 00 Zolpidem Tartrate (Ambien) 5 mg QHS PRN PO SLEEP; Start 01/12/17 at 00:00 Apixaban (Eliquis) 5 mg BID PO Last administered on 01/13/17 09:57; Admin Dose 5 MG; Start 01/12/17 at 09:00 Atorvastatin Calcium (Lipitor) 40 mg QHS PO Last administered on 01/12/17 20: 39; Admin Dose 40 MG; Start 01/12/17 at 21:00 Benazepril HCl (Lotensin) 40 mg DAILY PO Last administered on 01/13/17 09:58; Admin Dose 40 MG; Start 01/12/17 at 09:00 Clopidogrel Bisulfate (plaVIX) 75 mg DAILY PO Last administered on 01/13/17 09 :57; Admin Dose 75 MG; Start 01/12/17 at 09:00 Hydralazine HCl (Apresoline) 10 mg TID PO Last administered on 01/13/17 12:19 ; Admin Dose 10 MG; Start 01/12/17 at 09:00 Metoprolol Succinate (Toprol Xl) 75 mg DAILY PO Last administered on 01/13/17 09:59; Admin Dose 75 MG; Start 01/12/17 at 09:00 Triamcinolone Acetonide (Kenalog 0.1% Cr) 1 applic BID TOP Last administered on 01/13/17 09:59; Admin Dose 1 APPLIC; Start 01/12/17 at 09:00 Pantoprazole (Protonix Tab) 40 mg DAILY@06 PO Last administered on 01/13/17 05 :30; Admin Dose 40 MG; Start 01/12/17 at 06:00 Nitroglycerin (Nitroglycerin (Sl Tab) 0.4 Mg) 1 tab Q5M PRN SL ANGINA Last administered on 01/12/17 07:25; Admin Dose 1 TAB; Start 01/12/17 at 00:00 Miscellaneous Information 1 ea NOTE XX ; Start 01/12/17 at 00:30 Glucose (Glutose) 15 gm Q15M PRN PO DECREASED GLUCOSE; Start 01/12/17 at 00:30 Glucose (Glutose) 22.5 gm Q15M PRN PO DECREASED GLUCOSE; Start 01/12/17 at 00: 30 Dextrose (D50w Syringe) 25 ml Q15M PRN IV DECREASED GLUCOSE; Start 01/12/17 at 00:30 Dextrose (D50w Syringe) 50 ml Q15M PRN IV DECREASED GLUCOSE; Start 01/12/17 at 00:30 Glucagon (Glucagen) 1 mg Q15M PRN IM DECREASED GLUCOSE; Start 01/12/17 at 00:30 Glucose (Glutose) 15 gm Q15M PRN BUCCAL DECREASED GLUCOSE; Start 01/12/17 at 00 :30 Diagnostic Test (Pha) (Accu-Chek) 1 ea 02 XX ; Start 6/23/17 at 02:00 Hydralazine HCl (Apresoline) 10 mg Q2H PRN IV ELEVATED SYSTOLIC BP Last administered on 01/13/17 04:02; Admin Dose 10 MG; Start 01/12/17 at 06:13 Nifedipine (Procardia Xl) 60 mg BID PO ; Start 01/13/17 at 21:00 Aspirin (Aspirin) 325 mg DAILY PO Last administered on 01/13/17 09:57; Admin Dose 325 MG; Start 01/13/17 at 09:00 WILEY BOONE Jan 13, 2017 15:28
[2017-01-13] MEDS: NIFEdipine (XL) 60 MG TAB PO SCH (21:58)
[2017-01-13] MEDS: ATORVASTATIN 40 MG TAB PO SCH (21:59)
[2017-01-14] VITALS (10 sets, daily range): BP systolic 136–159; BP diastolic 70–86; PULSE 66–78; RESP 19–20
[2017-01-14] MEDS: ACCUCHECK AT 2AM (Patients on SS coverage) XX SCH (02:00)
[2017-01-14] MEDS: FUROSEMIDE 40 MG TAB PO SCH (06:12)
[2017-01-14] MEDS: PANTOPRAZOLE (EC) 40 MG TAB PO SCH (06:12)
[2017-01-14 07:11] LABS: ADD SCAN DIFF NO
[2017-01-14 07:21] LABS: BASOPHILS % 0.6 % (0.0-2.0); EOSINOPHILS # 0.3 10^3/ul (0.0-0.5); HEMATOCRIT 39.5 % (42.0-52.0); HEMOGLOBIN 12.6 g/dl (14.0-18.0); LYMPHOCYTES # 1.5 10^3/ul (0.8-2.9); LYMPHOCYTES % 27.8 % (15.0-51.0); MEAN CORPUSCULAR HEMOGLOBIN 27.9 pg (29.0-33.0); MEAN CORPUSCULAR HGB CONC 31.9 g/dl (32.0-37.0); MEAN CORPUSCULAR VOLUME 87.4 fl (82.0-101.0); MEAN PLATELET VOLUME 10.8 fl (7.4-10.4); MONOCYTE # 0.6 10^3/ul (0.3-0.9); MONOCYTES % 10.7 % (0.0-11.0); NEUTROPHILS % 55.7 % (39.0-77.0); PLATELET COUNT 185 10^3/UL (140-415); RED BLOOD COUNT 4.52 10^6/ul (4.70-6.10); RED CELL DISTRIBUTION WIDTH 16.7 % (11.5-14.5); WHITE BLOOD COUNT 5.4 10^3/ul (4.8-10.8)
[2017-01-14 07:38] LABS: CALCIUM 9.8 mg/dl (8.4-10.2); CREATININE 5.06 mg/dl (0.61-1.24); POTASSIUM 4.2 mmol/L (3.5-5.1)
[2017-01-14] MEDS: INSULIN ASPART [NOVOLOG] 3 ML PEN SC SCH ×2 (07:55→11:50)
[2017-01-14] MEDS: ASPIRIN 325 MG TAB PO SCH ×2 (08:18→08:23)
[2017-01-14] MEDS: BENAZEPRIL 40 MG TAB PO SCH (08:19)
[2017-01-14] MEDS: APIXABAN 5 MG TABLET PO SCH (08:19)
[2017-01-14] MEDS: METOPROLOL (XL) 25 MG TAB PO SCH (08:19)
[2017-01-14] MEDS: CLOPIDOGREL 75 MG TAB PO SCH (08:19)
[2017-01-14] MEDS: NIFEdipine (XL) 60 MG TAB PO SCH (08:20)
[2017-01-14] MEDS: TRIAMCINOLONE ACET 0.1% 15 GM CR TOP SCH (08:22)
--- NOTE | 2017-01-14 09:16 | PN ---
DATE: 01/14/2017 SUBJECTIVE: The patient is stable. The patient had hemodialysis yesterday and tolerated it well. No other acute events noted. OBJECTIVE: VITAL SIGNS: Blood pressure is 142/74, respirations 20, pulse 73, temperature 98.2. HEENT: Head is normocephalic. NECK: Supple. HEART: Regular rate. LUNGS: Showed diminished breath sounds at the base. ABDOMEN: Soft, nontender to palpation. No rebound or guarding. EXTREMITIES: Negative for clubbing or cyanosis. No edema. DERMATOLOGIC: No rashes. MUSCULOSKELETAL: Have no joint effusion. NEUROLOGIC: No change in exam. MEDICATIONS: The patient's medications have been reviewed. LABORATORY DATA: Shows sodium 139, potassium 4.2, chloride 99, BUN , creatinine 5.06. White c ount 5.4, hemoglobin 12.6, hematocrit 39.5, platelet count is 185. ASSESSMENT AND PLAN: 1. End-stage renal disease. The patient had hemodialysis yesterday and tolerated it well. Anticip ate next dialysis on Monday. 2. Volume overload. The patient is clinically improving. Continue ultrafiltration dialysis. 3. Anemia. Continue to monitor hemoglobin and hematocrit levels. 4. Mineral bone disorder. Continue to monitor calcium and phosphorus levels. 5. Hypertension. Continue the current blood pressure regimen. Continue ultrafiltration dialysis. 6. Chest pain. Etiology is likely pulmonary in nature. The patient's troponins were negative x3. Continue to monitor. Follow up with cardiology. 7. History of cardiomyopathy. Continue medical management. 8. Atrial fibrillation. Rate controlled. Continue Eliquis. Dictated By: NOEMI BOTELLO/CHANTALE Conf#: [id number] DID#: [id number]
--- NOTE | 2017-01-14 09:25 | PDOCDIS ---
Discharge Instructions DIAGNOSIS Discharge Diagnosis 1. chest pain 2. ESRD 3. cardiomyopathy 4. essential hypertension CONDITION Patient Condition: Stable HOME CARE INSTRUCTIONS: Diet Instructions: Low Fat /CholesterolSpecial Diet: 2gm NA FOLLOW UP/APPOINTMENTS Follow-up Plan 1. Follow up with your dialysis center for your regular scheduled dialysis 2. Follow up with your primary care provider in one week 3. Follow up with Dr. Archie Umana in one week WILEY BOONE Jan 14, 2017 09:25
[2017-01-14] MEDS ORDERED: NIFE60TA7 PO (09:36)
--- NOTE | 2017-01-14 10:08 | RADRPT ---
PROCEDURE: XR Chest. CLINICAL INDICATION: 76-year-old male with shortness of breath and history of left pleural effusi on. TECHNIQUE: Single frontal view of the chest was obtained. COMPARISON: Chest x-ray 10/12/2016 10:23 p.m. FINDINGS: A dialysis catheter enters from a right internal jugular approach with its tip in the right atrium. There is no pneumothorax. Degenerative osteophytes are noted in the thoracic and upper lumbar spin e. The left ventricle is enlarged. The cardiomediastinal silhouette and hilar structures are claire l. The pulmonary vasculature is normal. There are vascular calcifications in the aortic arch. There is persistent consolidative infiltrate in the medial aspect of the left lower lobe. There is a lef t pleural effusion which is unchanged. The right costophrenic angle is normal. IMPRESSION: 1. There is a moderate left pleural effusion with sided of infiltrate the medial aspect of the left lower lobe. These findings are unchanged. 2. Stable right-sided dialysis catheter with its tip in the proximal right atrium. 3. Spondylosis of the thoracic spine. 4. Atherosclerotic vascular disease. 5. Cardiomegaly. RPTAT:AAJJ Physician Shaheen Date Time Electronically viewed and signed by Physician Shaheen on 01/14/2017 10:07 FLORES/
--- NOTE | 2017-01-14 12:15 | CONS ---
Date/Time of Note Date/Time of Note DATE: 01/14/17 TIME: 12:13 Assessment/Plan Assessment/Plan Additional Assessment/Plan 1. Chest pain, assess for acute coronary syndrome - no CP now, con't med rx. R/ O RI - no intervention planned. 2. Cardiomyopathy with severely depressed left ventricular ejection fraction - euvolemic by exam. 3. History of percutaneous transluminal coronary angioplasty and stent placement, most recently at [facility] 08/2016- on Rx now. 4. Congestive heart failure, systolic, acute on chronic. 5. End-stage renal disease, on hemodialysis. Remove fluid as tolerated. BETTER now. 6. Hypertension - better Rx now. 7. Dyslipidemia. Consultation Date/Type/Reason Admit Date/Time Jan 11, 2017 at 21:44 24 HR Interval Summary Free Text/Dictation NO acute events - BP in good range - will monitor clinically. ROS: No fever, no chills, no nausea, no vomiting, no diarrhea/constipation No recent weight changes No chest pain, no PND, no orthopnea No dizziness, blurred vision No thirst, no heat or cold intolerance Exam/Review of Systems Vital Signs Vitals Vital Signs Date Time Temp Pulse Resp B/P Pulse Ox O2 Delivery O2 Flow Rate FiO2 01/14/17 12:11 76 01/14/17 11:14 97.6 20 136/70 99 01/14/17 00:30 Room Air Intake and Output 01/13/17 01/13/17 01/14/17 15:00 23:00 07:00 Intake Total 900 ml 350 ml Output Total 2400 ml Balance -1500 ml 350 ml Exam General: WN/WD/NAD, AOx 3 HEENT: Unicetric/atraumatic/EOMI (follow commands) NECK: JVD elevated, no thyromegaly Lymph: no lymphadenopathy HEART: irregular with no S3, II/ systolic murmur at apex LUNGS: Coarse sounds ABD: soft, NT, ND, +BS : Intact Neuro: non focal SKIN: chronic changes EXT: trace edema Results Result Diagram: 01/14/17 0635 01/14/17 0636 Results 24 hrs Laboratory Tests Test 01/13/17 17:00 01/13/17 22:02 01/14/17 06:35 01/14/17 06:36 Bedside Glucose 155 157 White Blood Count 5.4 Red Blood Count 4.52 L Hemoglobin 12.6 L Hematocrit 39.5 L Mean Corpuscular Volume 87.4 Mean Corpuscular Hemoglobin 27.9 L Mean Corpuscular Hemoglobin Concent 31.9 L Red Cell Distribution Width 16.7 H Platelet Count 185 Mean Platelet Volume 10.8 H Neutrophils % 55.7 Lymphocytes % 27.8 Monocytes % 10.7 Eosinophils % 5.0 Basophils % 0.6 Nucleated Red Blood Cells % 0.0 Neutrophils # 3.0 Lymphocytes # 1.5 Monocytes # 0.6 Eosinophils # 0.3 Basophils # 0.0 Nucleated Red Blood Cells # 0.0 Sodium Level 139 Potassium Level 4.2 Chloride Level 99 Carbon Dioxide Level 27 Anion Gap 17 H Blood Urea Nitrogen 29 H Creatinine 5.06 H Glucose Level 141 Calcium Level 9.8 Test 01/14/17 08:17 Bedside Glucose 133 Medications Medications Current Medications Ondansetron HCl (Zofran Inj) 4 mg Q6H PRN IV NAUSEA AND/OR VOMITING; Start at 00:00 Acetaminophen (Tylenol Tab) 650 mg Q6H PRN PO PAIN LEVEL 1-3 OR FEVER; Start at 00:00 Acetaminophen/ Hydrocodone Bitart ([place] (5/325)) 1 tab Q6H PRN PO MODERATE PAIN LEVEL 4-6; Start 01/12/17 at 00:00 Morphine Sulfate (morphine) 2 mg Q4H PRN IV SEVERE PAIN LEVEL 7-10 Last administered on 01/12/17 09:16; Admin Dose 2 MG; Start 01/12/17 at 00:00 Docusate Sodium (Colace) 100 mg Q12H PRN PO CONSTIPATION; Start 01/12/17 at 00: 00 Zolpidem Tartrate (Ambien) 5 mg QHS PRN PO SLEEP; Start 01/12/17 at 00:00 Apixaban (Eliquis) 5 mg BID PO Last administered on 01/14/17 08:19; Admin Dose 5 MG; Start 01/12/17 at 09:00 Atorvastatin Calcium (Lipitor) 40 mg QHS PO Last administered on 01/13/17 21: 59; Admin Dose 40 MG; Start 01/12/17 at 21:00 Benazepril HCl (Lotensin) 40 mg DAILY PO Last administered on 01/14/17 08:19; Admin Dose 40 MG; Start 01/12/17 at 09:00 Clopidogrel Bisulfate (plaVIX) 75 mg DAILY PO Last administered on 01/14/17 08 :19; Admin Dose 75 MG; Start 01/12/17 at 09:00 Hydralazine HCl (Apresoline) 10 mg TID PO Last administered on 01/14/17 08:20 ; Admin Dose 10 MG; Start 01/12/17 at 09:00 Metoprolol Succinate (Toprol Xl) 75 mg DAILY PO Last administered on 01/14/17 08:19; Admin Dose 75 MG; Start 01/12/17 at 09:00 Triamcinolone Acetonide (Kenalog 0.1% Cr) 1 applic BID TOP Last administered on 01/13/17 09:59; Admin Dose 1 APPLIC; Start 01/12/17 at 09:00 Pantoprazole (Protonix Tab) 40 mg DAILY@06 PO Last administered on 01/14/17 06 :12; Admin Dose 40 MG; Start 01/12/17 at 06:00 Nitroglycerin (Nitroglycerin (Sl Tab) 0.4 Mg) 1 tab Q5M PRN SL ANGINA Last administered on 01/12/17 07:25; Admin Dose 1 TAB; Start 01/12/17 at 00:00 Miscellaneous Information 1 ea NOTE XX ; Start 01/12/17 at 00:30 Glucose (Glutose) 15 gm Q15M PRN PO DECREASED GLUCOSE; Start 01/12/17 at 00:30 Glucose (Glutose) 22.5 gm Q15M PRN PO DECREASED GLUCOSE; Start 01/12/17 at 00: 30 Dextrose (D50w Syringe) 25 ml Q15M PRN IV DECREASED GLUCOSE; Start 01/12/17 at 00:30 Dextrose (D50w Syringe) 50 ml Q15M PRN IV DECREASED GLUCOSE; Start 01/12/17 at 00:30 Glucagon (Glucagen) 1 mg Q15M PRN IM DECREASED GLUCOSE; Start 01/12/17 at 00:30 Glucose (Glutose) 15 gm Q15M PRN BUCCAL DECREASED GLUCOSE; Start 01/12/17 at 00 :30 Diagnostic Test (Pha) (Accu-Chek) 1 ea 02 XX ; Start 01/13/17 at 02:00 Hydralazine HCl (Apresoline) 10 mg Q2H PRN IV ELEVATED SYSTOLIC BP Last administered on 01/13/17 04:02; Admin Dose 10 MG; Start 01/12/17 at 06:13 Nifedipine (Procardia Xl) 60 mg BID PO Last administered on 01/14/17 08:20; Admin Dose 60 MG; Start 01/13/17 at 21:00 Aspirin (Aspirin) 325 mg DAILY PO Last administered on 01/13/17 09:57; Admin Dose 325 MG; Start 01/13/17 at 09:00 BALAJI YI MD Jan 14, 2017 12:15
== END 2017-01-14 17:48 | disposition home or self-care (01) | DRG 291 ==
LOC: E/R 18:31 → TEL 21:44
PROVIDERS: ADMIT Internal Medicine; ATTEND Internal Medicine
PROC: 5A1D60Z (ICD-10-PCS; principal; 2017-01-11)
DX: I13.2 Hypertensive heart and chronic kidney disease with heart failure and with stage 5 chronic kidney disease, or end stage renal disease (principal); N18.6 End stage renal disease; J90 Pleural effusion, not elsewhere classified; I50.23 Acute on chronic systolic (congestive) heart failure; I42.9 Cardiomyopathy, unspecified; I25.10 Atherosclerotic heart disease of native coronary artery without angina pectoris; I48.91 Unspecified atrial fibrillation; D64.9 Anemia, unspecified; E78.5 Hyperlipidemia, unspecified; E83.9 Disorder of mineral metabolism, unspecified; R07.89 Other chest pain; Z99.2 Dependence on renal dialysis; Z95.5 Presence of coronary angioplasty implant and graft
CPT/HCPCS: 71010; 71250; 80048; 80061; 82550; 82553; 82962; 83036; 83735; 83880; 84100; 84484; 85025; 85610; 85730; 90935; 93005; J0360; J1815; J2270

== ENCOUNTER 2017-09-19 11:17 | Inpatient (IN) | END 2017-09-27 19:15 | disposition home or self-care (01) | DRG 640 ==

== ENCOUNTER 2018-01-04 15:21 | Emergency (ER) | END 2018-01-04 18:35 | disposition home or self-care (01) ==

== ENCOUNTER 2018-01-04 20:08 | Emergency (ER) | END 2018-01-04 22:39 | disposition home or self-care (01) ==